=== PATIENT | female | born 1945 | race Caucasian/White ===

== ENCOUNTER 2020-10-03 09:53 | Outpatient (REF) | payer MEDICARE, SELFPAY ==
[2020-10-03 12:09] LABS: Estimated Average Glucose 143 mg/dL; Hemoglobin A1C 150.0011 umol/L; Hemoglobin A1c % 6.6 %
[2020-10-03 12:29] LABS: Cholesterol 119 mg/dL; Glucose Fasting 137 mg/dL (60-99); HDL Cholesterol 60 mg/dL; LDL Cholesterol Calculated 32 mg/dl; Triglycerides 136 mg/dL
== END 2020-10-03 09:54 | disposition home or self-care (01) ==
LOC: HO.LAB 09:53
PROVIDERS: PCP Internal Medicine; Visit Provider Internal Medicine
DX: E11.9 Type 2 diabetes mellitus without complications (principal)
CPT/HCPCS: 80061; 82947; 83036

== ENCOUNTER 2020-12-03 11:13 | Outpatient (REF) | payer MEDICARE, SELFPAY | END 2020-12-03 11:14 | disposition home or self-care (01) | LOC: HO.LAB 11:13 | PROVIDERS: PCP Internal Medicine; Visit Provider Internal Medicine | DX: Z20.822 Contact with and (suspected) exposure to COVID-19 (principal) | CPT/HCPCS: 36415; C9803; U0003 ==

== ENCOUNTER 2020-12-26 | Outpatient (REF) | payer MEDICARE, SELFPAY | END 2020-12-26 00:01 | disposition home or self-care (01) | LOC: HO.VC | PROVIDERS: Visit Provider Internal Medicine | DX: Z23 Encounter for immunization (principal) | CPT/HCPCS: 0011A ==

== ENCOUNTER 2021-01-04 09:22 | Outpatient (REF) | payer MEDICARE, SELFPAY ==
[2021-01-04 10:18] LABS: Estimated Average Glucose 137 mg/dL; Hemoglobin A1c % 6.4 %
[2021-01-04 10:54] LABS: Alanine Aminotransferase 17 U/L (0-31); Albumin Level 4.3 g/dL (3.5-5.0); Alkaline Phosphatase 43 U/L (39-117); Anion Gap 16 (12-20); Aspartate Amino Transferase 18 U/L (5-31); Bilirubin Total 0.6 mg/dL (0.0-1.0); Blood Urea Nitrogen 15 mg/dL (9-16); Calcium 9.3 mg/dL (8.4-10.2); Carbon Dioxide 28 mmol/L (22-29); Chloride 104 mmol/L (96-108); Cholesterol 122 mg/dL; Estimated Glomerular Filt Rate > 60; Glucose Random 132 mg/dL (60-115); HDL Cholesterol 55 mg/dL; LDL Cholesterol Calculated 42 mg/dl; Potassium 4.5 mmol/L (3.3-5.1); Sodium 143 mmol/L (135-145); Total Protein 6.6 g/dL (6.5-8.0); Triglycerides 127 mg/dL
[2021-01-05 03:13] LABS: LDL Cholesterol Direct 40 mg/dL (<100)
== END 2021-01-04 09:23 | disposition home or self-care (01) ==
LOC: HO.LAB 09:22
PROVIDERS: PCP Internal Medicine; Visit Provider Internal Medicine
DX: E11.40 Type 2 diabetes mellitus with diabetic neuropathy, unspecified (principal); I10 Essential (primary) hypertension; E78.5 Hyperlipidemia, unspecified
CPT/HCPCS: 36415; 80053; 80061; 83036; 83721

== ENCOUNTER → 2021-01-10 12:26 | Outpatient (BNVA) | payer MEDICARE, SELFPAY | PROVIDERS: PCP Internal Medicine; Visit Provider Internal Medicine | DX: E11.65 Type 2 diabetes mellitus with hyperglycemia (principal); Z79.4 Long term (current) use of insulin; E78.5 Hyperlipidemia, unspecified | CPT/HCPCS: 82947; 99212 ==

== ENCOUNTER 2021-01-18 11:14 | Outpatient (REF) | payer SELFPAY | END 2021-01-18 11:15 | disposition home or self-care (01) | LOC: HO.HAP 11:14 | PROVIDERS: Visit Provider Internal Medicine | DX: Z46.1 Encounter for fitting and adjustment of hearing aid (principal) | CPT/HCPCS: V5266; V5267 ==

== ENCOUNTER 2021-01-22 | Outpatient (REF) | payer MEDICARE, SELFPAY | END 2021-01-22 00:01 | disposition home or self-care (01) | LOC: HO.VC | PROVIDERS: Visit Provider Internal Medicine | DX: Z23 Encounter for immunization (principal) | CPT/HCPCS: 0012A ==

== ENCOUNTER 2021-04-03 09:23 | Outpatient (REF) | payer MEDICARE, SELFPAY ==
[2021-04-03 11:02] LABS: Creatinine Urine 75.28 mg/dL; Microalbum/Creatinine Ratio Ur 9.2 ug/mg cr
[2021-04-03 11:11] LABS: Alanine Aminotransferase 14 U/L (0-31); Alkaline Phosphatase 42 U/L (39-117); Anion Gap 13 (12-20); Aspartate Amino Transferase 13 U/L (5-31); Bilirubin Total 0.5 mg/dL (0.0-1.0); Blood Urea Nitrogen 15 mg/dL (9-16); Calcium 9.4 mg/dL (8.4-10.2); Carbon Dioxide 30 mmol/L (22-29); Chloride 104 mmol/L (96-108); Estimated Glomerular Filt Rate > 60; Glucose Random 134 mg/dL (60-115); Sodium 142 mmol/L (135-145); Total Protein 6.2 g/dL (6.5-8.0)
[2021-04-03 11:16] LABS: Estimated Average Glucose 134 mg/dL; Hemoglobin A1c % 6.3 %
== END 2021-04-03 09:24 | disposition home or self-care (01) ==
LOC: HO.LAB 09:23
PROVIDERS: PCP Internal Medicine; Visit Provider Internal Medicine
DX: E11.9 Type 2 diabetes mellitus without complications (principal)
CPT/HCPCS: 36415; 80053; 82043; 83036

== ENCOUNTER → 2021-04-10 11:54 | Outpatient (BNVA) | payer MEDICARE, SELFPAY | PROVIDERS: PCP Internal Medicine; Visit Provider Internal Medicine | DX: E11.65 Type 2 diabetes mellitus with hyperglycemia (principal); I10 Essential (primary) hypertension; E78.5 Hyperlipidemia, unspecified; Z79.4 Long term (current) use of insulin | CPT/HCPCS: Q3014 ==

== ENCOUNTER 2021-05-03 15:49 | Outpatient (REF) | payer SELFPAY | END 2021-05-03 15:50 | disposition home or self-care (01) | LOC: HO.HAP 15:49 | PROVIDERS: Visit Provider Internal Medicine | DX: Z46.1 Encounter for fitting and adjustment of hearing aid (principal); H90.3 Sensorineural hearing loss, bilateral | CPT/HCPCS: V5267 ==

== ENCOUNTER 2021-06-24 09:37 | Outpatient (REF) | payer MEDICARE, SELFPAY ==
[2021-06-24 10:15] LABS: MANUAL DIFF FLAG NO
[2021-06-24 10:25] LABS: Basophils Absolute Auto 0.1 X10*3/uL (0.0-0.2); Basophils Percent Auto 0.8 % (0-2); Eosinophils Absolute Auto 0.2 X10*3/uL (0.0-0.4); Eosinophils Percent Auto 2.6 % (0-4); Hematocrit 39.1 % (37-47); Hemoglobin 12.3 g/dl (12.0-16.0); Imm Gran Abs Auto 0.03 X10*3/uL (0.00-0.03); Imm Gran Pct Auto 0.5 % (0.0-0.4); Lymphocytes Absolute Auto 2.4 X10*3/uL (1.2-4.9); Lymphocytes Percent Auto 39.4 % (20-40); Mean Corpuscular HGB Conc 31.5 g/dl (31.0-35.0); Mean Corpuscular Hemoglobin 27.1 pg (27.0-33.0); Mean Corpuscular Volume 86.1 fL (80-98); Mean Platelet Volume 11.5 fL (9.4-12.3); Monocytes Absolute Auto 0.4 X10*3/uL (0.1-1.2); Monocytes Percent Auto 6.4 % (2-11); Neutrophils Absolute Auto 3.1 X10*3/uL (2.0-8.3); Neutrophils Percent Auto 50.3 % (45-73); Platelet Count 199 X10*3/uL (160-400); Red Blood Count 4.54 X10*6/uL (4.20-5.50); Red Cell Distribution Width 13.7 % (11.0-16.0); White Blood Count 6.1 X10*3/uL (4.8-10.8)
[2021-06-24 10:41] LABS: Estimated Average Glucose 131 mg/dL; Hemoglobin A1c % 6.2 %
[2021-06-24 11:04] LABS: Alanine Aminotransferase 10 U/L (0-31); Alkaline Phosphatase 40 U/L (39-117); Anion Gap 15 (12-20); Aspartate Amino Transferase 13 U/L (5-31); Bilirubin Total 0.4 mg/dL (0.0-1.0); Blood Urea Nitrogen 14 mg/dL (9-16); Calcium 9.1 mg/dL (8.4-10.2); Carbon Dioxide 25 mmol/L (22-29); Chloride 107 mmol/L (96-108); Cholesterol 135 mg/dL; Estimated Glomerular Filt Rate > 60; Glucose Fasting 146 mg/dL (60-99); HDL Cholesterol 60 mg/dL; LDL Cholesterol Calculated 59 mg/dl; Potassium 4.8 mmol/L (3.3-5.1); Sodium 142 mmol/L (135-145); Total Protein 6.3 g/dL (6.5-8.0); Triglycerides 82 mg/dL
[2021-06-24 12:27] LABS: Creatinine Urine 31.64 mg/dL; Microalbumin Urine < 5.0 mg/L
== END 2021-06-24 09:38 | disposition home or self-care (01) ==
LOC: HO.LAB 09:37
PROVIDERS: PCP Internal Medicine; Visit Provider Internal Medicine
DX: Z00.00 Encounter for general adult medical examination without abnormal findings (principal); E11.9 Type 2 diabetes mellitus without complications
CPT/HCPCS: 36415; 80053; 80061; 82043; 83036; 85025

== ENCOUNTER 2021-08-06 13:55 | Outpatient (REF) | payer MEDICARE, SELFPAY | END 2021-08-06 13:56 | disposition home or self-care (01) | LOC: HO.LAB 13:55 | PROVIDERS: PCP Internal Medicine; Visit Provider Internal Medicine | DX: Z20.822 Contact with and (suspected) exposure to COVID-19 (principal) | CPT/HCPCS: C9803; U0003; U0005 ==

== ENCOUNTER 2021-11-11 11:15 | Outpatient (REF) | payer MEDICARE, SELFPAY ==
[2021-11-11 12:25] LABS: COVID-19 Test Negative (Negative); IDNOW Serial# 16C4AD1C
== END 2021-11-11 11:16 | disposition home or self-care (01) ==
LOC: HO.LAB 11:15
PROVIDERS: Visit Provider Internal Medicine
DX: Z20.822 Contact with and (suspected) exposure to COVID-19 (principal)
CPT/HCPCS: 36415; 87635; C9803

== ENCOUNTER 2022-01-10 08:57 | Outpatient (REF) | payer MEDICARE, SELFPAY ==
[2022-01-10 09:37] LABS: Estimated Average Glucose 140 mg/dL; Hemoglobin A1c % 6.5 %
[2022-01-10 10:04] LABS: Cholesterol 138 mg/dL; Glucose Fasting 171 mg/dL (60-99); HDL Cholesterol 65 mg/dL; LDL Cholesterol Calculated 45 mg/dl; Triglycerides 142 mg/dL
== END 2022-01-10 08:58 | disposition home or self-care (01) ==
LOC: HO.LAB 08:57
PROVIDERS: PCP Internal Medicine; Visit Provider Internal Medicine
DX: Z00.00 Encounter for general adult medical examination without abnormal findings (principal); E11.65 Type 2 diabetes mellitus with hyperglycemia
CPT/HCPCS: 36415; 80061; 82947; 83036; 84443

== ENCOUNTER 2022-01-31 14:10 | Outpatient (REF) | payer MEDICARE, SELFPAY ==
--- NOTE | ~2022-01-31 | XR_ITS ---
EXAMINATION: XR LUMBOSACRAL SPINE CLINICAL INFORMATION: Dorsalgia COMPARISON: None TECHNIQUE: Three views of the lumbosacral spine. FINDINGS: There is normal lumbar lordosis. There is grade 1 anterolisthesis L3 over L4. Rest the vertebral alignment is normal. There is loss of L4-L5 and L5-S1 disc heights. No acute fracture, dislocation seen. There is atherosclerotic calcification of the abdominal aorta without dilation. XR/XR lumbar spine 2-3V IMPRESSION: Grade 1 anterolisthesis L3-L4. Degenerative disc changes L4-L5 and L5-S1 disc levels.
== END 2022-01-31 14:11 | disposition home or self-care (01) ==
LOC: HO.XRAY 14:10
PROVIDERS: PCP Internal Medicine; Visit Provider Internal Medicine
DX: M54.9 Dorsalgia, unspecified (principal)
CPT/HCPCS: 72100

== ENCOUNTER 2022-04-23 09:03 | Outpatient (REF) | payer MEDICARE, SELFPAY ==
[2022-04-23 09:58] LABS: MANUAL DIFF FLAG NO
[2022-04-23 10:08] LABS: Basophils Percent Auto 0.6 % (0-2); Eosinophils Absolute Auto 0.1 X10*3/uL (0.0-0.4); Eosinophils Percent Auto 2.1 % (0-4); Hematocrit 42.2 % (37.0-47.0); Hemoglobin 13.5 g/dl (12.0-16.0); Imm Gran Abs Auto 0.01 X10*3/uL (0.00-0.03); Imm Gran Pct Auto 0.2 % (0.0-0.4); Lymphocytes Absolute Auto 2.5 X10*3/uL (1.2-4.9); Lymphocytes Percent Auto 36.8 % (20-40); Mean Corpuscular Hemoglobin 27.2 pg (27.0-33.0); Mean Corpuscular Volume 84.9 fL (80.0-98.0); Mean Platelet Volume 10.9 fL (9.4-12.3); Monocytes Absolute Auto 0.4 X10*3/uL (0.1-1.2); Monocytes Percent Auto 6.6 % (2-11); Neutrophils Absolute Auto 3.6 x10*3/uL (2.0-8.3); Neutrophils Percent Auto 53.7 % (45-73); Platelet Count 224 X10*3/uL (160-400); Red Blood Count 4.97 X10*6/uL (4.20-5.50); Red Cell Distribution Width 13.9 % (11.0-16.0); White Blood Count 6.7 X10*3/uL (4.8-10.8)
[2022-04-23 10:25] LABS: Estimated Average Glucose 131 mg/dL; Hemoglobin A1c % 6.2 %
[2022-04-23 10:45] LABS: Alanine Aminotransferase 14 U/L (0-31); Albumin Level 4.2 g/dL (3.5-5.0); Alkaline Phosphatase 43 U/L (39-117); Anion Gap 13 (12-20); Aspartate Amino Transferase 16 U/L (5-31); Bilirubin Total 0.5 mg/dL (0.0-1.0); Blood Urea Nitrogen 16 mg/dL (9-16); Calcium 9.9 mg/dL (8.4-10.2); Carbon Dioxide 27 mmol/L (22-29); Chloride 106 mmol/L (96-108); Cholesterol 138 mg/dL; Estimated Glomerular Filt Rate > 60; Glucose Fasting 151 mg/dL (60-99); HDL Cholesterol 61 mg/dL; LDL Cholesterol Calculated 48 mg/dl; Potassium 4.7 mmol/L (3.3-5.1); Sodium 141 mmol/L (135-145); Total Protein 6.8 g/dL (6.5-8.0); Triglycerides 149 mg/dL
[2022-04-23 11:10] LABS: Thyroid Stimulating Hormone 0.56 uIU/mL (0.32-4.0)
[2022-04-23 12:05] LABS: Creatinine Urine 76.82 mg/dL; Microalbum/Creatinine Ratio Ur 48.1 ug/mg cr
== END 2022-04-23 09:04 | disposition home or self-care (01) ==
LOC: HO.LAB 09:03
PROVIDERS: PCP Internal Medicine; Visit Provider Internal Medicine
DX: Z00.00 Encounter for general adult medical examination without abnormal findings (principal); E11.9 Type 2 diabetes mellitus without complications; Z13.0 Encounter for screening for diseases of the blood and blood-forming organs and certain disorders involving the immune mechanism
CPT/HCPCS: 36415; 80053; 80061; 82043; 83036; 84443; 85025

== ENCOUNTER 2022-05-12 11:15 | Outpatient (REF) | payer MEDICARE, SELFPAY ==
--- NOTE | ~2022-05-12 | XR_ITS ---
EXAMINATION: XR CERVICAL SPINE CLINICAL INFORMATION: Cervicalgia COMPARISON: None TECHNIQUE: 4 views of the cervical spine were obtained. FINDINGS: No acute fracture or malalignment. Vertebral body heights are maintained. Endplate osteophytes present C4-C7. Bulky endplate osteophytes present throughout the cervical spine, possibly with associated ankylosis at C2-3. There is spinal soft tissues unremarkable. XR/XR cervical spine 2V IMPRESSION: No acute findings. Cervical spondylosis as described.
== END 2022-05-12 11:16 | disposition home or self-care (01) ==
LOC: HO.XRAY 11:15
PROVIDERS: PCP Internal Medicine; Visit Provider Internal Medicine
DX: M54.2 Cervicalgia (principal)
CPT/HCPCS: 72040

== ENCOUNTER 2022-06-20 11:09 | Outpatient (REF) | payer MEDICARE, SELFPAY ==
[2022-06-20 11:36] LABS: Estimated Average Glucose 128 mg/dL; Hemoglobin A1c % 6.1 %
[2022-06-20 11:57] LABS: Glucose Fasting 103 mg/dL (60-99); Uric Acid 4.3 mg/dL (2.4-5.7)
== END 2022-06-20 11:10 | disposition home or self-care (01) ==
LOC: HO.LAB 11:09
PROVIDERS: PCP Internal Medicine; Visit Provider Internal Medicine
DX: M10.9 Gout, unspecified (principal); E11.65 Type 2 diabetes mellitus with hyperglycemia
CPT/HCPCS: 36415; 82947; 83036; 84550

== ENCOUNTER 2022-08-05 13:59 | Outpatient (REF) | payer MEDICARE, SELFPAY ==
--- NOTE | ~2022-08-05 | XR_ITS ---
EXAMINATION: XR RIGHT HIP SERIES XR LEFT KNEE SERIES CLINICAL INFORMATION: Pain in the hip. Pain in the knee. COMPARISON: None. TECHNIQUE: Right hip 2 views. Left knee 4 views. FINDINGS: Right Hip: There is chondrocalcinosis. Joint space normal. Prominent ossification extending distally and lateral to the proximal right iliac spine. This likely reflects heterotopic ossification related to old trauma. Surrounding bone and soft tissues are otherwise normal. Left Knee: Chondrocalcinosis. Minimal marginal osteophytes about the medial and lateral compartments indicative of mild osteoarthritis. Patellofemoral compartment: At least mild osteoarthritis manifested by marginal osteophytes on the lateral view. XR/XR knee LT 2V IMPRESSION: RIGHT HIP: Chondrocalcinosis. No arthrosis. Ossification attached to the right iliac spine likely related to old trauma with heterotopic ossification. Prominent enthesophytes less likely LEFT KNEE: Chondrocalcinosis. Mild osteoarthritis.
--- NOTE | ~2022-08-05 | XR_ITS ---
EXAMINATION: XR RIGHT HIP SERIES XR LEFT KNEE SERIES CLINICAL INFORMATION: Pain in the hip. Pain in the knee. COMPARISON: None. TECHNIQUE: Right hip 2 views. Left knee 4 views. FINDINGS: Right Hip: There is chondrocalcinosis. Joint space normal. Prominent ossification extending distally and lateral to the proximal right iliac spine. This likely reflects heterotopic ossification related to old trauma. Surrounding bone and soft tissues are otherwise normal. Left Knee: Chondrocalcinosis. Minimal marginal osteophytes about the medial and lateral compartments indicative of mild osteoarthritis. Patellofemoral compartment: At least mild osteoarthritis manifested by marginal osteophytes on the lateral view. XR/XR hip RT min 2V IMPRESSION: RIGHT HIP: Chondrocalcinosis. No arthrosis. Ossification attached to the right iliac spine likely related to old trauma with heterotopic ossification. Prominent enthesophytes less likely LEFT KNEE: Chondrocalcinosis. Mild osteoarthritis.
== END 2022-08-05 14:00 | disposition home or self-care (01) ==
LOC: HO.XRAY 13:59
PROVIDERS: PCP Internal Medicine; Visit Provider Internal Medicine
DX: M25.551 Pain in right hip (principal); M25.562 Pain in left knee
CPT/HCPCS: 73502; 73560

== ENCOUNTER 2022-08-08 11:35 | Outpatient (REF) | payer MEDICARE, SELFPAY ==
--- NOTE | ~2022-08-08 | XR_ITS ---
EXAMINATION: XR KNEE, RIGHT CLINICAL INFORMATION: Knee pain, right COMPARISON: Standing AP knees 04/28/2018 TECHNIQUE: Right knee is imaged in 3 views. FINDINGS: There is no acute or healing fracture, dislocation, or destructive process. No focal joint narrowing or erosive change. Again, there is chondrocalcinosis medial lateral menisci and possibly at origin medial collateral ligament. There is small suprapatellar effusion. Spurring at the quadriceps insertion patella and at origin patellar tendon are present. The deep infrapatellar recess is preserved. Old surgical clips seen anterior lateral soft tissues just below knee joint. There are scattered curvilinear calcifications likely related to varicose veins and similar to prior imaging. XR/XR knee RT 2V IMPRESSION: -Chondrocalcinosis medial lateral menisci. Small suprapatellar effusion. -Spurring quadriceps insertion patella and origin patellar tendon. -Varicose veins with chronic calcifications.
== END 2022-08-08 11:36 | disposition home or self-care (01) ==
LOC: HO.XRAY 11:35
PROVIDERS: PCP Internal Medicine; Visit Provider Internal Medicine
DX: M25.561 Pain in right knee (principal)
CPT/HCPCS: 73560

== ENCOUNTER → 2022-09-04 10:59 | Outpatient (BNVA) | payer MEDICARE, SELFPAY | PROVIDERS: PCP Internal Medicine; Visit Provider Orthopaedic Surgery | DX: M17.0 Bilateral primary osteoarthritis of knee (principal); E11.69 Type 2 diabetes mellitus with other specified complication; E66.01 Morbid (severe) obesity due to excess calories | CPT/HCPCS: 20610; 99202; J1100 ==

== ENCOUNTER 2022-09-12 12:29 | Outpatient (REF) | payer SELFPAY ==
--- NOTE | 2022-09-15 07:21 | MHC.AU.FUR ---
Hearing Instrument Follow-Up Date of Visit: 09/12/22 Right Ear: [employer] OPN S 3 mini [employer] Serial # [id number] Repair Warranty: 07/05/2023 Loss and Damage Warranty: 07/05/2023 Battery Size: Rechargeable Senior Core Java Developer: #[id number] Type of Dome: 8 mm Open Type of Wax Guard: mini Pro Dispensed By: [facility] Date of Fittin06/18/2020 Follow-Up Summary: Hearing Aid Problem - Patient reports the aid is not charging. She brought in hearing aid and the electric meter inspector. Visual inspection after plugging in the electric meter inspector and placing aid in, the indicator on the aid is doing 3 quick red blinks which means the aid needs to be sent for repair. Patient took back the electric meter inspector and sending aid to [employer] under warranty. Recommendations (Other): When aid received, make sure it is charged and set to last settings in RAS. Then patient can pick-up repair without seeing an AuD Diagnosis Code(s): Primary Diagnosis: H90.3 Signature:Provider: Amrbeen Jose, [facility]
== END 2022-09-12 12:30 | disposition home or self-care (01) ==
LOC: HO.HAP 12:29
PROVIDERS: Visit Provider Internal Medicine
DX: Z13.89 Encounter for screening for other disorder (principal)

== ENCOUNTER 2022-10-08 08:55 | Outpatient (REF) | payer MEDICARE, SELFPAY ==
[2022-10-08 09:43] LABS: Estimated Average Glucose 131 mg/dL; Hemoglobin A1c % 6.2 %
[2022-10-08 09:48] LABS: Glucose Fasting 137 mg/dL (60-99)
== END 2022-10-08 08:56 | disposition home or self-care (01) ==
LOC: HO.LAB 08:55
PROVIDERS: PCP Internal Medicine; Visit Provider Internal Medicine
DX: E11.65 Type 2 diabetes mellitus with hyperglycemia (principal)
CPT/HCPCS: 36415; 82947; 83036

== ENCOUNTER 2022-11-05 13:41 | Outpatient (REF) | payer MEDICARE, SELFPAY ==
--- NOTE | 2022-11-05 10:00 | EMG_ITS ---
Please see scanned EMG / Nerve Conduction Report. MTDD
== END 2022-11-05 13:42 | disposition home or self-care (01) ==
LOC: HO.NEURO 13:41
PROVIDERS: PCP Internal Medicine; Visit Provider Internal Medicine
DX: R20.2 Paresthesia of skin (principal)
CPT/HCPCS: 95885; 95913

== ENCOUNTER 2022-12-03 08:18 | Outpatient (REF) | payer MEDICARE, SELFPAY | END 2022-12-03 08:19 | disposition home or self-care (01) | LOC: HO.SH 08:18 | PROVIDERS: Visit Provider Internal Medicine | DX: Z01.118 Encounter for examination of ears and hearing with other abnormal findings (principal); H90.3 Sensorineural hearing loss, bilateral | CPT/HCPCS: 92557; 92567 ==

== ENCOUNTER 2023-01-03 09:31 | Outpatient (REF) | payer MEDICARE, SELFPAY ==
[2023-01-03 10:39] LABS: Estimated Average Glucose 131 mg/dL; Hemoglobin A1c % 6.2 %
[2023-01-03 11:25] LABS: Glucose Fasting 139 mg/dL (60-99)
[2023-01-03 11:39] LABS: Thyroid Stimulating Hormone 0.29 uIU/mL (0.32-4.0)
== END 2023-01-03 09:32 | disposition home or self-care (01) ==
LOC: HO.LAB 09:31
PROVIDERS: PCP Internal Medicine; Visit Provider Internal Medicine
DX: E03.9 Hypothyroidism, unspecified (principal); E11.65 Type 2 diabetes mellitus with hyperglycemia
CPT/HCPCS: 36415; 82947; 83036; 84443

== ENCOUNTER 2023-04-14 12:00 | Outpatient (REF) | payer MEDICARE, SELFPAY ==
--- NOTE | ~2023-04-14 | XR_ITS ---
EXAMINATION: XR SHOULDER, RIGHT CLINICAL INFORMATION: Pain. COMPARISON: None available. TECHNIQUE: 3 views of the right shoulder. FINDINGS: There is no evidence of acute fracture or dislocation of the right shoulder. There is capsular calcification evident. The glenohumeral joint appears maintained. There is degenerative change of the right acromioclavicular joint with loss of joint space and marginal spurring. XR/XR shoulder RT min 2V IMPRESSION: Calcific tendinitis. Right AC joint degenerative change.
== END 2023-04-14 12:01 | disposition home or self-care (01) ==
LOC: HO.XRAY 12:00
PROVIDERS: PCP Internal Medicine; Visit Provider Internal Medicine
DX: M25.511 Pain in right shoulder (principal)
CPT/HCPCS: 73030

== ENCOUNTER 2023-07-03 13:21 | Outpatient (AMB) | payer MEDICARE, SELFPAY ==
--- NOTE | 2023-07-03 13:24 | MHC.PC.OV ---
Intake Visit Reasons: Body aches, coughing, congested Intake Note: Patient here today for body aches, coughing and congestion. State OTC is not helping Title I Instructional Assistant Required: No Choir Director: Present Accompanied by: Spouse Allergies acetaminophen [Percocet] Allergy (Unknown, Verified 07/03/23 13:28) Stomach upset amoxicillin [Augmentin] Allergy (Unknown, Verified 07/03/23 13:28) hives clavulanic acid [Augmentin] Allergy (Unknown, Verified 07/03/23 13:28) hives furosemide Allergy (Unknown, Verified 07/03/23 13:28) unknown latex [LATEX] Allergy (Unknown, Verified 07/03/23 13:28) UNKNOWN lisinopril Allergy (Unknown, Verified 07/03/23 13:28) Unknown oxycodone [Percocet] Allergy (Unknown, Verified 07/03/23 13:28) Stomach upset tramadol Allergy (Unknown, Verified 07/03/23 13:28) Stomach uspet Medication List - Last Reconciled 07/03/23 by Allen Cortés MD amlodipine 10 mg PO DAILY blood sugar diagnostic FREESTYLE LITE TEST STRIPS TO CHECK THREE TIMES A DAY blood-glucose meter (FreeStyle Lite Meter kit) As directed diclofenac sodium 1% 2 grams topical QID ezetimibe 10 mg PO DAILY gabapentin 300 mg (3 x 100 mg) PO BEDTIME insulin lispro (Humalog U-100 Insulin) 10 units (0.1 mL) subcut TID insulin lispro (Humalog KwikPen (U-100) Insulin) 10 units (0.1 mL) subcut TID levothyroxine 112 mcg PO DAILY liraglutide 1.2 mg (0.2 mL) subcut DAILY 30 days losartan 25 mg PO DAILY 30 days metformin 1,000 mg PO BID naproxen (Naprosyn) 500 mg PO BID PRN rosuvastatin 20 mg PO DAILY tizanidine 4 mg PO Q8H PRN Tobacco use date assessed: 07/03/23 Fall risk assessment: No Falls in past year Last assessed Fall Risk: 07/03/23 Dental Screening Dental Screen Date: 07/03/23 Did you have a dental visit in the last 12 months?: Yes Did you have a dental problem in the last 6 months where you did not have access to dental care?: No Was dental information given to patient?: Patient has dentist HPI Body aches, coughing, congested HPI Details cough and chills; positive for covid [facility] Medical History Annual physical exam Diabetes mellitus HLD (hyperlipidemia) Hypertension Hypothyroidism Obesity T2DM (type 2 diabetes mellitus) Type 2 diabetes mellitus with morbid obesity Vitamin D deficiency Surgical History History of appendectomy History of cholecystectomy History of colonoscopy History of surgery S/P JOSIE (total abdominal hysterectomy) Family History Father Diabetes Mother CHF (congestive heart failure) CVD (cardiovascular disease) Brother HIV (human immunodeficiency virus infection) Social History Housing: House Alcohol intake: never Patient Tobacco Use Status: Former Tobacco user Tobacco use type: Cigarette e-Cigarette/Vaping Use: Never Used Second Hand Smoke Exposure: No service: No Current occupational status: retired Cognitive needs: No Hearing needs: No Vision needs: No Questionnaire Thrive Questionnaire Date Thrive assessed: 01/09/23 ARSLAN-7 AMB Questionnaire ARSLAN-7 Date ARSLAN - 7 assessed: 01/13/22 Source: Developed by Drs. Mendez Sanz, Shannan Quintanilla, Fuentes Sales and colleagues, with an educational aurelia from [employer]. Review of Systems Const Denies chills, Denies headache(s) and Denies weight loss ENT Denies headache(s) Card Denies chest pain, Denies syncope and Denies irregular heart rhythm GI Denies abdominal pain, Denies change in stool character, Denies nausea and Denies vomiting Musc Denies deformity and Denies joint swelling Neuro Denies syncope and Denies headache(s) Physical exam (Primary Care) Tobacco/Smoking Status: Tobacco use Status Tobacco use date assessed 07/03/23 07/03/23 13:29 Patient Tobacco Use Status Former Tobacco user 07/03/23 13:25 Tobacco use type Cigarette 07/03/23 13:25 e-Cigarette/Vaping Use Never Used 07/03/23 13:25 Thrive Assessment: Date of Thrive Assessment Date Thrive assessed 01/09/23 07/03/23 13:25 Telehealth Telehealth Location of provider rendering services: practice address Location of patient: address on file Patient Identification confirmed using: Name, : Yes Telehealth method: voice only Patient verbally consented to treatment: Yes Patient verbally consented to billing insurance company: Yes Patient informed of any privacy concerns related to visit: Yes Minutes spent on Phone/Video with Pt.: 15 (telephone) Assessment and Plan Assessment & Plan (1) COVID-19: Code(s): U07.1 - COVID-19 Plan: pax Orders: Orders BinaxNOW Covid-19 Ag Today R68.83 - Chills (without fever) XR chest 2V Today R05.9 - Cough, unspecified COVID-19 ID NOW (Han) Today R68.83 - Chills (without fever) Medications: New nirmatrelvir-ritonavir 300 mg (150 mg x 2)-100 mg (Paxlovid) take TWO 150 mg tablets of nirmatrelvir with ONE 100 mg tablet of ritonavir twice daily for 5 days orally PRN; 30 tabs 0RF covid Coding Level of Care Code Tele Est Pt Level 3 (16453) Diagnoses COVID-19 U07.1
== END 2023-07-03 14:24 | disposition home or self-care (01) ==
LOC: HO.HMGH 13:21
PROVIDERS: PCP Internal Medicine; Visit Provider Internal Medicine
DX: U07.1 COVID-19 (principal)
CPT/HCPCS: 99441

== ENCOUNTER 2023-07-03 13:47 | Outpatient (REF) | payer MEDICARE, SELFPAY ==
--- NOTE | ~2023-07-03 | XR_ITS ---
EXAMINATION: XR CHEST CLINICAL INFORMATION: Cough. COMPARISON: Chest x-ray 12/08/2017 TECHNIQUE: 2 views of the chest were obtained. FINDINGS: Lungs are clear. No pulmonary vascular congestion. There is no pleural effusion. The heart size is normal. The cardiac and mediastinal contours are normal. There are calcifications of the thoracic aorta. There are multilevel degenerative changes of dorsal spine. XR/XR chest 2V IMPRESSION: Unremarkable examination.
[2023-07-03 14:58] LABS: COVID-19 Test Positive (Negative); IDNOW Serial# 08D9AD1C
== END 2023-07-03 13:48 | disposition home or self-care (01) ==
LOC: HO.LAB 13:47
PROVIDERS: PCP Internal Medicine; Visit Provider Internal Medicine
DX: R68.83 Chills (without fever) (principal); R05.9 Cough, unspecified; Z20.822 Contact with and (suspected) exposure to COVID-19
CPT/HCPCS: 71046; 87635

== ENCOUNTER 2023-08-27 08:44 | Outpatient (REF) | payer MEDICARE, SELFPAY | END 2023-08-27 08:45 | disposition home or self-care (01) | LOC: HO.LAB 08:44 | PROVIDERS: PCP Internal Medicine; Visit Provider Internal Medicine | DX: E78.5 Hyperlipidemia, unspecified (principal); R73.9 Hyperglycemia, unspecified; E03.9 Hypothyroidism, unspecified | CPT/HCPCS: 36415; 80061; 82947; 83036; 84443 ==

== ENCOUNTER 2023-08-28 14:25 | Outpatient (AMB) | payer MEDICARE, SELFPAY ==
[2023-08-28 14:26] VITALS: BP 110/54; PULSE 70; O2SAT 98; BMI 36.3
--- NOTE | 2023-08-28 14:26 | MHC.PC.OV ---
Vital Signs 08/28/23 14:26 Height 5 ft 1 in Weight 192 lb BMI 36.3 BP 110/54 L Blood Pressure Location Lt brachial Position Sitting Pulse 70 Pulse Source Pulse Oximeter Pulse Oximetry (%) 98 Oxygen Delivery Method Room Air Intake Visit Reasons: A1C/ anxiety/ mental check Agile Java Developer: Not Required per policy Accompanied by: Self / Same As Patient Allergies acetaminophen [Percocet] Allergy (Unknown, Verified 08/28/23 14:27) Stomach upset amoxicillin [Augmentin] Allergy (Unknown, Verified 08/28/23 14:27) hives clavulanic acid [Augmentin] Allergy (Unknown, Verified 08/28/23 14:27) hives furosemide Allergy (Unknown, Verified 08/28/23 14:27) unknown latex [LATEX] Allergy (Unknown, Verified 08/28/23 14:27) UNKNOWN lisinopril Allergy (Unknown, Verified 08/28/23 14:27) Unknown oxycodone [Percocet] Allergy (Unknown, Verified 08/28/23 14:27) Stomach upset tramadol Allergy (Unknown, Verified 08/28/23 14:27) Stomach uspet Medication List - Last Reconciled 08/28/23 by Allen Cortés MD amlodipine 10 mg PO DAILY blood sugar diagnostic FREESTYLE LITE TEST STRIPS TO CHECK THREE TIMES A DAY blood-glucose meter (FreeStyle Lite Meter kit) As directed diclofenac sodium 1% 2 grams topical QID ezetimibe 10 mg PO DAILY gabapentin 300 mg (3 x 100 mg) PO BEDTIME insulin lispro (Humalog U-100 Insulin) 10 units (0.1 mL) subcut TID insulin lispro (Humalog KwikPen (U-100) Insulin) 10 units (0.1 mL) subcut TID levothyroxine 112 mcg PO DAILY liraglutide 1.2 mg (0.2 mL) subcut DAILY 30 days losartan 25 mg PO DAILY 30 days metformin 1,000 mg PO BID naproxen (Naprosyn) 500 mg PO BID PRN nirmatrelvir-ritonavir 300 mg (150 mg x 2)-100 mg (Paxlovid) take TWO 150 mg tablets of nirmatrelvir with ONE 100 mg tablet of ritonavir twice daily for 5 days orally PRN; rosuvastatin 20 mg PO DAILY tizanidine 4 mg PO Q8H PRN Tobacco use date assessed: 07/03/23 Fall risk assessment: No Falls in past year Last assessed Fall Risk: 08/28/23 Dental Screening Dental Screen Date: 08/28/23 Did you have a dental visit in the last 12 months?: No Did you have a dental problem in the last 6 months where you did not have access to dental care?: No Was dental information given to patient?: Patient has dentist HPI A1C/ anxiety/ mental check HPI Details DM HTN and CTS; should see a surgeon for CTS but reluctant PFSH Medical History Hypothyroidism Obesity Type 2 diabetes mellitus with morbid obesity Annual physical exam Vitamin D deficiency HLD (hyperlipidemia) T2DM (type 2 diabetes mellitus) Diabetes mellitus Hypertension Surgical History History of surgery History of colonoscopy History of appendectomy History of cholecystectomy S/P JOSIE (total abdominal hysterectomy) Family History Father Diabetes Mother CHF (congestive heart failure) CVD (cardiovascular disease) Brother HIV (human immunodeficiency virus infection) Social History Housing: House Alcohol intake: never Patient Tobacco Use Status: Former Tobacco user Tobacco use type: Cigarette e-Cigarette/Vaping Use: Never Used Second Hand Smoke Exposure: No service: No Current occupational status: retired Cognitive needs: No Hearing needs: No Vision needs: No Questionnaire PHQ-9 Over the last 2 weeks, how often have you been bothered by any of the following problems? Depression Screening Interpretation: Negative Depression Screening Done: Yes Source: Developed by Drs. Mendez Sanz, Shannan Quintanilla, Fuentes Sales and colleagues, with an educational aurelia from [employer]. Thrive Questionnaire Date Thrive assessed: 01/09/23 AUDIT C Alcohol Use Questionnaire (AUDIT-C) 1. How often do you have a drink containing alcohol?: Never Total Score: 0 Score Reviewed/Action Taken: Yes ARSLAN-7 AMB Questionnaire ARSLAN-7 Date ARSLAN - 7 assessed: 08/28/23 Feeling nervous, anxious, or on edge: 0 = Not at all Not being able to stop or control worryin = Not at all Worrying too much about different things: 0 = Not at all Trouble relaxin = Not at all Being so restless that it is hard to sit still: 0 = Not at all Becoming easily annoyed or irritable: 0 = Not at all Feeling afraid as if something awful might happen: 0 = Not at all Total ARSLAN-7 score (0-4 normal; 5-9 mild; 10-14 moderate; 15-21 severe): 0 Source: Developed by Drs. Mendez Sanz, Shannan Quintanilla, Fuentes Sales and colleagues, with an educational aurelia from [employer]. Review of Systems Const Denies chills, Denies headache(s) and Denies weight loss ENT Denies headache(s) Card Denies chest pain, Denies syncope, Denies irregular heart rhythm and Denies dyspnea Resp Denies chest congestion, Denies cough and Denies dyspnea GI Denies abdominal pain, Denies change in stool character, Denies nausea and Denies vomiting Musc Denies deformity and Denies joint swelling Neuro Denies syncope and Denies headache(s) Physical exam (Primary Care) Vital Signs: Last Vital Signs Pulse 70 08/28/23 14:26 BP 110/54 L 08/28/23 14:26 Pulse Ox 98 08/28/23 14:26 Oxygen Delivery Method Room Air 08/28/23 14:26 BMI result Body Mass Index 36.3 Tobacco/Smoking Status: Tobacco use Status Tobacco use date assessed 07/03/23 08/28/23 14:31 Patient Tobacco Use Status Former Tobacco user 08/28/23 14:31 Tobacco use type Cigarette 08/28/23 14:31 e-Cigarette/Vaping Use Never Used 08/28/23 14:31 Depression Screening Interpretation: Negative Thrive Assessment: Date of Thrive Assessment Date Thrive assessed 01/09/23 08/28/23 14:31 Const General: cooperative, comfortable and no acute distress Resp Effort & Inspection: normal respiratory effort Auscultation: clear to auscultation bilaterally Percussion: percussion normal Cardio Jugular venous distension: no JVD Rate: regular rate Rhythm: regular rhythm GI Inspection: Yes normal to inspection Extrem Other: normal Assessment and Plan Assessment & Plan (1) Type 2 diabetes mellitus with morbid obesity: Code(s): E11.69 - Type 2 diabetes mellitus with other specified complication; E66.01 - Morbid (severe) obesity due to excess calories Plan: stable; same rx (2) Hypertension: Code(s): I10 - Essential (primary) hypertension Qualifiers: Hypertension type: unspecified Qualified Code(s): I10 - Essential (primary) hypertension Plan: stable; same rx (3) Carpal tunnel syndrome: Code(s): G56.00 - Carpal tunnel syndrome, unspecified upper limb Plan: should see hand surgeon Orders: Orders Complete Blood Count Auto Diff Today D64.9 - Anemia, unspecified Hemoglobin A1c Today R73.9 - Hyperglycemia, unspecified Lipid Panel Today E78.5 - Hyperlipidemia, unspecified Comprehensive [place]. Panel Fast Today N28.9 - Disorder of kidney and ureter, unspecified Medications: New lorazepam 1 mg PO TID PRN 60 tabs 3RF anxiety Coding Level of Care Code Est Pt Level 4 (23106) Diagnoses Type 2 diabetes mellitus with morbid obesity E11.69; E66.01 Hypertension, unspecified type I10 Hypertension type: unspecified Carpal tunnel syndrome G56.00
== END 2023-08-28 15:06 | disposition home or self-care (01) ==
PROVIDERS: PCP Internal Medicine; Visit Provider Internal Medicine
DX: E11.69 Type 2 diabetes mellitus with other specified complication (principal); E66.01 Morbid (severe) obesity due to excess calories; I10 Essential (primary) hypertension; Z68.36 Body mass index [BMI] 36.0-36.9, adult; G56.00 Carpal tunnel syndrome, unspecified upper limb
CPT/HCPCS: 99214

== ENCOUNTER 2023-10-10 11:06 | Emergency (ER) | payer MEDICARE, SELFPAY ==
[2023-10-10] VITALS (7 sets, daily range): BP systolic 122–145; BP diastolic 47–84; PULSE 70–76; RESP 16–18; TEMP 36.4–36.9; O2SAT 94–100; BMI 33.4
--- NOTE | ~2023-10-10 | XR_ITS ---
EXAMINATION: PELVIS AND RIGHT HIP, LEFT TIB-FIB, LEFT ANKLE CLINICAL INFORMATION: Pain without trauma COMPARISON: Left knee 08/05/2022, right hip 08/05/2022 TECHNIQUE: Single view pelvis with 2 additional views right hip, 2 views left tib-fib, 4 views left ankle FINDINGS: Mild degenerative changes are present in the hip. No fractures or bony destructive lesions are seen. Again seen is ossification lateral to the right iliac spine, unchanged from prior. Degenerative changes are present in the knee in both the medial and lateral compartment with some narrowing and sclerosis with osteophytes. The patellofemoral compartment is not well assessed on these tibia and fibula radiographs. Some mild degenerative changes seen at the ankle with some medial and lateral femoral condyle osteophytes. Subcutaneous calcification is seen medially possibly secondary to venous stasis. The ankle mortise appears stable. Moderate degenerative changes are noted in the tarsal bones. There is mild calcaneal spurring and some plantar fascia calcification. XR/XR ankle LT 2V IMPRESSION: 1. No evidence of an acute osseous injury. 2. Degenerative changes as described above.
--- NOTE | ~2023-10-10 | XR_ITS ---
EXAMINATION: PELVIS AND RIGHT HIP, LEFT TIB-FIB, LEFT ANKLE CLINICAL INFORMATION: Pain without trauma COMPARISON: Left knee 08/05/2022, right hip 08/05/2022 TECHNIQUE: Single view pelvis with 2 additional views right hip, 2 views left tib-fib, 4 views left ankle FINDINGS: Mild degenerative changes are present in the hip. No fractures or bony destructive lesions are seen. Again seen is ossification lateral to the right iliac spine, unchanged from prior. Degenerative changes are present in the knee in both the medial and lateral compartment with some narrowing and sclerosis with osteophytes. The patellofemoral compartment is not well assessed on these tibia and fibula radiographs. Some mild degenerative changes seen at the ankle with some medial and lateral femoral condyle osteophytes. Subcutaneous calcification is seen medially possibly secondary to venous stasis. The ankle mortise appears stable. Moderate degenerative changes are noted in the tarsal bones. There is mild calcaneal spurring and some plantar fascia calcification. XR/XR hip RT w PEL1V IMPRESSION: 1. No evidence of an acute osseous injury. 2. Degenerative changes as described above.
--- NOTE | ~2023-10-10 | XR_ITS ---
EXAMINATION: PELVIS AND RIGHT HIP, LEFT TIB-FIB, LEFT ANKLE CLINICAL INFORMATION: Pain without trauma COMPARISON: Left knee 08/05/2022, right hip 08/05/2022 TECHNIQUE: Single view pelvis with 2 additional views right hip, 2 views left tib-fib, 4 views left ankle FINDINGS: Mild degenerative changes are present in the hip. No fractures or bony destructive lesions are seen. Again seen is ossification lateral to the right iliac spine, unchanged from prior. Degenerative changes are present in the knee in both the medial and lateral compartment with some narrowing and sclerosis with osteophytes. The patellofemoral compartment is not well assessed on these tibia and fibula radiographs. Some mild degenerative changes seen at the ankle with some medial and lateral femoral condyle osteophytes. Subcutaneous calcification is seen medially possibly secondary to venous stasis. The ankle mortise appears stable. Moderate degenerative changes are noted in the tarsal bones. There is mild calcaneal spurring and some plantar fascia calcification. XR/XR tibia fibula LT 2V IMPRESSION: 1. No evidence of an acute osseous injury. 2. Degenerative changes as described above.
--- NOTE | ~2023-10-10 | US_ITS ---
EXAMINATION: US VENOUS ULTRASOUND WITH DOPPLER LOWER EXTREMITY, LEFT CLINICAL INFORMATION: Left lower extremity pain and swelling COMPARISON: Left leg DVT study 04/08/2018 TECHNIQUE: Ultrasound of the deep veins is performed from the hip to the calf with compression sonography and color and pulse Doppler assessment. Spectral analysis with color-flow imaging is performed. FINDINGS: There is normal venous compression and respiratory variation and augmented flow. The visualized common femoral vein, superficial femoral vein, profunda femoral vein, popliteal vein, and the trifurcation region shows no evidence of deep venous thrombosis. There is a 4.0 x 1.5 x 2.3 cm Arias's cyst present. If the patient's symptoms persist, followup ultrasound in 5 days 7 days might be of value to exclude proximal propagation from a non-visualized calf vein. US/US venous duplex LE IMPRESSION: No DVT demonstrated in the left lower extremity.
--- NOTE | 2023-10-10 11:08 | ED_ITS ---
HPI - Extremity Injury (Lower) General Chief Complaint: Extremity Problem Stated Complaint: LLE PAIN/SWELLING PER EMS Time Seen by Provider: 10/10/23 11:08 Source: patient and EMS Mode of arrival: EMS Limitations: no limitations History of Present Illness HPI Narrative: 77 yo female w/ pmh of diabetes, hypertension, hyperlipidemia here with complaints of left calf pain and swelling since with no known injury or trauma. Patient reports history of a unprovoked DVT years ago and she was on Coumadin for some time but is no longer on Coumadin. She denies any shortness of breath or chest pain. No redness, warmth, numbness or tingling of extremity. Patient also complaining of right hip pain since yesterday with no known injury or trauma. Taking Motrin and Tylenol home with continued pain Related Data Previous Rx's Medication Instructions Recorded blood-glucose meter (FreeStyle #1 ea 01/10/21 Lite Meter kit) tizanidine 4 mg capsule 4 mg PO Q8H PRN muscle spasticity 09/30/21 #60 caps losartan 25 mg tablet 25 mg PO DAILY 30 days #90 tabs 01/09/23 insulin lispro 100 unit/mL 10 unit (0.1 mL) subcut TID #10 mL 02/04/23 subcutaneous solution (Humalog U-100 Insulin) liraglutide 0.6 mg/0.1 mL (18 mg/3 1.2 mg (0.2 mL) subcut DAILY 30 02/04/23 mL) subcutaneous pen injector days #6 mL insulin lispro 100 unit/mL 10 unit (0.1 mL) subcut TID #15 mL 02/06/23 subcutaneous pen (Humalog KwikPen (U-100) Insulin) naproxen 500 mg tablet (Naprosyn) 500 mg PO BID PRN pain #60 tabs 03/24/23 blood sugar diagnostic #100 ea 06/04/23 diclofenac sodium 1 % topical gel 2 g topical QID #100 grams 06/30/23 nirmatrelvir 300 mg (150 mg See Rx Instructions PO .COMPLEX 07/03/23 x2)-ritonavir 100 mg tablet,dose PRN covid #30 tabs pack (Paxlovid) metformin 1,000 mg tablet 1,000 mg PO BID #180 tabs 07/31/23 ezetimibe 10 mg tablet 10 mg PO DAILY #90 tabs 08/10/23 levothyroxine 112 mcg capsule 112 mcg PO DAILY #90 caps 08/23/23 lorazepam 1 mg tablet 1 mg PO TID PRN anxiety #60 tabs 08/28/23 rosuvastatin 20 mg tablet 20 mg PO DAILY #90 tabs 09/06/23 amlodipine 10 mg tablet 10 mg PO DAILY #90 tabs 09/15/23 gabapentin 100 mg capsule 300 mg (3 x 100 mg) PO BEDTIME #90 09/15/23 caps Allergies Allergy/AdvReac Type Severity Reaction Status Date / Time acetaminophen [Percocet] Allergy Unknown Stomach Verified 08/28/23 14:27 upset amoxicillin [Augmentin] Allergy Unknown hives Verified 08/28/23 14:27 clavulanic acid [Augmentin] Allergy Unknown hives Verified 08/28/23 14:27 furosemide Allergy Unknown unknown Verified 08/28/23 14:27 latex [LATEX] Allergy Unknown UNKNOWN Verified 08/28/23 14:27 lisinopril Allergy Unknown Unknown Verified 08/28/23 14:27 oxycodone [Percocet] Allergy Unknown Stomach Verified 08/28/23 14:27 upset tramadol Allergy Unknown Stomach Verified 08/28/23 14:27 uspet Review of Systems Review of Systems: Yes all other systems are reviewed and are negative Constitutional: Constitutional: Reports no additional constitutional complaints, Denies body ache(s), Denies chills, Denies fever(s), Denies headache(s) and Denies weakness Eyes: Eyes: Reports no additional eye complaints and Denies change in vision ENT: Reports system reviewed and no additional complaints, except as documented, Denies dizziness, Denies headache(s), Denies nasal congestion, Denies nasal discharge and Denies neck pain Cardiovascular: Cardiovascular: Reports no additional cardiovascular complaints, Denies chest pain, Denies leg edema and Denies dyspnea Respiratory: Respiratory: Reports no additional respiratory complaints, Denies cough and Denies dyspnea Gastrointestinal: Gastrointestinal: Reports no additional gastrointestinal complaints, Denies abdominal pain, Denies diarrhea, Denies nausea and Denies vomiting Genitourinary: Genitourinary: Reports no additional female genitourinary co mplaints and Denies urinary incontinence Musculoskeletal: Musculoskeletal: Reports no additional musculoskeletal complaints, Denies back pain, Reports arthralgias, Denies joint swelling, Denies neck pain, Denies numbness, Reports radiating pain into limb and Denies tingling Integumentary/Breasts: Skin/Breast: Reports system reviewed and no additional complaints, except as docu and Denies rash Neurologic: Reports system reviewed and no additional complaints, except as documented, Denies Abnormal speech present, Denies dizziness, Denies headache(s), Denies numbness, Denies tingling and Denies weakness PMFSH Past Medical History Attestation statement: The following information was validated with the patient. Source: old records reviewed and nursing notes reviewed Medical History Hypothyroidism Obesity Type 2 diabetes mellitus with morbid obesity Annual physical exam Vitamin D deficiency HLD (hyperlipidemia) T2DM (type 2 diabetes mellitus) Diabetes mellitus Hypertension Surgical History History of surgery History of colonoscopy History of appendectomy History of cholecystectomy S/P JOSIE (total abdominal hysterectomy) Family History Family History Father Diabetes Mother CHF (congestive heart failure) CVD (cardiovascular disease) Brother HIV (human immunodeficiency virus infection) Social History Social History Housing: House Alcohol intake: never Patient Tobacco Use Status: Former Tobacco user Tobacco use type: Cigarette e-Cigarette/Vaping Use: Never Used Second Hand Smoke Exposure: No Advance Directives: Yes Advance Directives on File: Yes Advance Directives Date on File: 10/01/23 service: No Current occupational status: retired Cognitive needs: No Hearing needs: No Vision needs: No Physical Exam Vital Signs: Vital Signs: Last Vital Signs Temp 98 F 10/10/23 11:24 Pulse 72 10/10/23 14:39 Resp 16 10/10/23 14:39 BP 129/47 L 10/10/23 14:39 Pulse Ox 94 10/10/23 14:39 O2 Del Method Room Air 10/10/23 14:39 BMI result Body Mass Index 33.4 Const: General: cooperative, healthy appearing, comfortable and no acute distress Orientation/consciousness: patient oriented x3 Limitations: no limitations HEENT: Head: Yes normal to inspection Ears: hearing grossly normal bilaterally General nose exam: Normal external nose present Face and sinus: Yes normal facial exam Mouth: Normal oral and palatal mucosa present Throat: Yes posterior oropharynx normal Eyes: General: appearance normal, both eyes and all related structures Pupils: Equal, round and reactive pupils present Neck: Neck: Yes normal visual inspection Chest: Chest palpation & inspection: normal inspection of the chest Resp: Effort & Inspection: normal respiratory effort Auscultation: clear to auscultation bilaterally Cardio: Rate: regular rate Rhythm: regular rhythm Peripheral pulses: Peripheral pulses 2+ throughout GI: Inspection: Yes normal to inspection Palpation (GI): Soft to palpation and nontender Auscultation: normal bowel sounds Back/Spine/Pelvis: Thoracic/Lumbar Spine: thoracic and lumbar spine normal to inspection Skin: General skin exam: no rashes or lesions noted Neuro: General: patient oriented x3, no focal motor deficits and normal sensation to monofilament Cranial nerves: Yes Equal, round and reactive pupils present Cognition (Neuro): normal cognition Speech: No Abnormal speech present Gait exam (Neuro): Normal gait present Motor exam (neuro): 5/5 motor strength present throughout Extrem: Other: There is tenderness on palpation to the left posterior calf. I do not appreciate any warmth, redness, swelling. There are normal DP and PT pulses. Normal sensation, There is some pain on palpation over the diffuse ankle with pain with active range of motion. There does not appear to be any joint effusion. Negative Caal test. Tenderness on palpation to the right lateral hip. This is worsened with passive range of motion. I do not appreciate any deformity, shortening or rotation. N ormal DP and PT pulses. Normal sensation. General: Yes normal to inspection Course Course Course Narrative: X-ray show degenerative changes. Ultrasound shows a left Arias cyst but no evidence of DVT. I discussed the findings with the patient and her family. I did offer short-term rehab and family spent some time determining what they feel it would be best further mother. At this time I do not feel that she can be home and so we will hold her in the emergency room and obtain a physical therapy evaluation and case management evaluation as well. Placed in physician observation pending disposition Medications Administered Generic Name Dose Route Start Last Admin Trade Name Freq PRN Reason Stop Dose Admin Prednisone 60 mg 10/10/23 14:15 10/10/23 14:42 Prednisone 20 Mg Tablet PO 10/15/23 14:14 60 mg DAILY CONNER Administration Discontinued Medications Generic Name Dose Route Start Last Admin Trade Name Lillian PRN Reason Stop Dose Admin Lidocaine 1 patch 10/10/23 14:11 10/10/23 14:42 Lidocaine 4 % Patch Adh..Patch TRANSDERMA 10/10/23 14:12 1 patch ONCE ONE Administration Protocol Oxycodone HCl 10 mg 10/10/23 11:21 10/10/23 12:16 Oxycodone Hcl Immed Release 5 Mg Tablet PO 10/10/23 11:22 10 mg ONCE ONE Administration Medical Decision Making Medical Decision Making MDM Narrative: 77 yo female w/ pmh of diabetes, hypertension, hyperlipidemia here with complaints of left calf pain and swelling since with no known injury or trauma.? Patient reports history of a unprovoked DVT years ago and she was on Coumadin for some time but is no longer on Coumadin.? She denies any shortness of breath or chest pain.? No redness, warmth, numbness or tingling of extremity.? Patient also complaining of right hip pain since yesterday with no known injury or trauma.? Taking Motrin and Tylenol home with continued pain There is tenderness on palpation to the left posterior calf.? I do not appreciate any warmth, redness, swelling.? There are normal DP and PT pulses. Normal sensation,? There is some pain on palpation over the diffuse ankle with pain with active range of motion.? There does not appear to be any joint effusion.? Negative Caal test. Tenderness on palpation to the right lateral hip.? This is worsened with passive range of motion.? I do not appreciate any deformity, shortening or rotation.? Normal DP and PT pulses.? Normal sensation. WIll provide analgesia Will need ambulation trial to determine disposition Differential Diagnosis Differential Diagnoses: The differential diagnosis associated with the presentation includes OA, strain, sprain, DVT Low concern for necrotizing fasciitis, compartment syndrome, cellulitis, malignancy, Admission/Observation Consideration of admission/observation: Escalation of care including admission/observation considered Independent Interpretation I performed an independent interpretation of an: Plain X-Ray and Ultrasound Interpretation: I independently reviewed the ultrasound/x-ray agree with Radiology report Radiology Impression Discussion of test interpretation with radiology: I have reviewed the radiologist's reading. Radiologist Impression: [address] [address] Ultrasound Report Signed Patient: Naty Cervantes MR#: [id number] : 1945 Acct:[id number] Age/Sex: 77 / F ADM Date: 10/10/23 Loc: .ED Attending Dr: Ordering Physician: Cheri Saleh NP Date of Service: 10/10/23 Procedure(s): US venous duplex LE LT Accession Number(s): [id number] cc: Allen Cortés MD; Cheri Saleh NP~ EXAMINATION: US VENOUS ULTRASOUND WITH DOPPLER LOWER EXTREMITY, LEFT CLINICAL INFORMATION: Left lower extremity pain and swelling COMPARISON: Left leg DVT study 04/08/2018 TECHNIQUE: Ultrasound of the deep veins is performed from the hip to the calf with compression sonography and color and pulse Doppler assessment. Spectral analysis with color-flow imaging is performed. FINDINGS: There is normal venous compression and respiratory variation and augmented flow. The visualized common femoral vein, superficial femoral vein, profunda femoral vein, popliteal vein, and the trifurcation region shows no evidence of deep venous thrombosis. There is a 4.0 x 1.5 x 2.3 cm Arias's cyst present. If the patient's symptoms persist, followup ultrasound in 5 days 7 days might be of value to exclude proximal propagation from a non-visualized calf vein. US/US venous duplex LE LT IMPRESSION: No DVT demonstrated in the left lower extremity. [address] [address] XRay Report Signed Patient: Naty Cervantes MR#: [id number] : 1945 Acct:[id number] Age/Sex: 77 / F ADM Date: 10/10/23 Loc: .ED Attending Dr: Ordering Physician: Cheri Saleh NP Date of Service: 10/10/23 Procedure(s): XR tibia fibula LT 2V Accession Number(s): [id number] cc: Allen Cortés MD; Cheri Saleh NP~ EXAMINATION: PELVIS AND RIGHT HIP, LEFT TIB-FIB, LEFT ANKLE CLINICAL INFORMATION: Pain without trauma COMPARISON: Left knee 08/05/2022, right hip 08/05/2022 TECHNIQUE: Single view pelvis with 2 additional views right hip, 2 views left tib-fib, 4 views left ankle FINDINGS: Mild degenerative changes are present in the hip. No fractures or bony destructive lesions are seen. Again seen is ossification lateral to the right iliac spine, unchanged from prior. Degenerative changes are present in the knee in both the medial and lateral compartment with some narrowing and sclerosis with osteophytes. The patellofemoral compartment is not well assessed on these tibia and fibula radiographs. Some mild degenerative changes seen at the ankle with some medial and lateral femoral condyle osteophytes. Subcutaneous calcification is seen medially possibly secondary to venous stasis. The ankle mortise appears stable. Moderate degenerative changes are noted in the tarsal bones. There is mild calcaneal spurring and some plantar fascia calcification. XR/XR tibia fibula LT 2V IMPRESSION: 1. No evidence of an acute osseous injury. 2. Degenerative changes as described above. Independent Historian Clinical information obtained from an independent historian. History obtained from or confirmed by: EMS Discharge Plan Discharge Clinical Impression: Synovial cyst of popliteal space [Arias], left knee, Arthritis of right hip Patient Disposition: Still a Patient Prescriptions: No Action insulin lispro [Humalog U-100 Insulin] 100 unit/mL solution 10 unit subcut TID Qty: 10 5RF liraglutide 0.6 mg/0.1 mL (18 mg/3 mL) pen injector 1.2 mg subcut DAILY 30 Days Qty: 6 11RF insulin lispro [Humalog KwikPen Insulin] 100 unit/mL insulin pen 10 unit subcut TID Qty: 15 8RF naproxen [Naprosyn] 500 mg tablet 500 mg PO BID PRN (Reason: pain) Qty: 60 2RF (DME) blood sugar diagnostic Strip See Rx Instructions .ROUTE .MEDSUPPLY Qty: 100 11RF Rx Instructions: FREESTYLE LITE TEST STRIPS TO CHECK THREE TIMES A DAY diclofenac sodium 1 % gel 2 g topical QID Qty: 100 8RF Rx Instructions: apply to single elbow, wrist or hand; for hand includes palm/fingers/back of hand metformin 1,000 mg tablet 1,000 mg PO BID Qty: 180 3RF ezetimibe 10 mg tablet 10 mg PO DAILY Qty: 90 1RF levothyroxine 112 mcg capsule 112 mcg PO DAILY Qty: 90 6RF rosuvastatin 20 mg tablet 20 mg PO DAILY Qty: 90 11RF amlodipine 10 mg tablet 10 mg PO DAILY Qty: 90 1RF gabapentin 100 mg capsule 300 mg PO BEDTIME Qty: 90 5RF tizanidine 4 mg capsule 4 mg PO Q8H PRN (Reason: muscle spasticity) Qty: 60 5RF Paxlovid 300 mg (150 mg x 2)-100 mg tablets,dose pack See Rx Instructions PO .COMPLEX PRN (Reason: covid) Qty: 30 0RF Rx Instructions: take TWO 150 mg tablets of nirmatrelvir with ONE 100 mg tablet of ritonavir twice daily for 5 days orally PRN; losartan 25 mg tablet 25 mg PO DAILY 30 Days Qty: 90 8RF lorazepam 1 mg tablet 1 mg PO TID PRN (Reason: anxiety) Qty: 60 3RF (DME) blood-glucose meter [FreeStyle Lite Meter] Kit See Rx Instructions .ROUTE .MEDSUPPLY Qty: 1 0RF Rx Instructions: As directed Referrals: [facility] [Other] (Agency will call you to arrange 1st visit. )
--- NOTE | 2023-10-10 11:36 | PC.NURSE ---
pt changed into hospital attire, provider at bedside, pt to have DVt study as well as imaging, plan for analgesia at this time call lerma within reach
--- NOTE | 2023-10-10 12:05 | PC.NURSE ---
us at bedside
[2023-10-10] MEDS: oxyCODONE HCl Immed Release 5 MG TABLET 10 MG PO (12:16)
--- NOTE | 2023-10-10 12:20 | PC.NURSE ---
pt medicated per mar foer 07/02 LLE PAin
--- NOTE | 2023-10-10 14:15 | PC.NURSE ---
pt medication recrd updated plan for pt to go to overflow for PT/CM
[2023-10-10] MEDS: Lidocaine 4 % Patch ADH..PATCH 1 PATCH TRANSDERMA ×2 (14:42→18:51)
[2023-10-10] MEDS: predniSONE 20 MG TABLET 60 MG PO (14:42)
[2023-10-10 15:07] LABS: Glucose, Whole Blood 106 mg/dL (60-115)
--- NOTE | 2023-10-10 15:25 | MHC.CM.ED ---
Received case management consult from Cheri ROY. Patient came to the ER due to leg pain. Work up essentially negative. Patient was originally going to go home with fpc and physical therapy. However, patient and family decided they didn't feel that was safe because patient continues to still have pain. Anticiipate patient will remain in ER over. Attempted to meet with patient and family to discuss d/c planning. Nursing care currently being provided. Will attempt to meet again. Continue to monitor for d/c needs.
--- NOTE | 2023-10-10 15:38 | MHC.EDTECH ---
Patient just came from the main ed to overflow ,pt was moved into hospital bed ,vitals taken ,care given and pure wick in place ,This pct offer pt fluids ,Pt had a jacoby gabe to drink ,warm blanket given ,Pt daughters at bedside ,Call lerma within Pt reach .
--- NOTE | 2023-10-10 16:50 | PC.NURSE ---
repositioned, another pillow given. eating. no respiratory distress. family w pt at bedside
[2023-10-10] MEDS: Cyclobenzaprine HCl 10 MG TABLET PO (16:58)
--- NOTE | 2023-10-10 17:05 | MHC.EDTECH ---
pT WAS REPOSITION ON HER SIDE WITH PILLOWS .
[2023-10-10 17:13] LABS: Glucose, Whole Blood 115 mg/dL (60-115)
--- NOTE | 2023-10-10 17:49 | PC.NURSE ---
boosted, repositioned w more pillows, changed pad, braeden care w tech at bedside s/p incontinence- purewick intact. no distress
--- NOTE | 2023-10-10 17:58 | MHC.EDTECH ---
Patient was incontinent of urine ,care given ,Patient ate 25 % of meal drank 240 ml fluids ,Patient daughter still here visiting .
[2023-10-10] MEDS: oxyCODONE HCl Immed Release 5 MG TABLET PO (18:31)
--- NOTE | 2023-10-10 20:46 | MHC.EDTECH ---
Patient blood sugar check ,vitals taken ,pt was reposition and boosted up in bed ,Pudding giving for snack and fresh pitcher ice water given ,pt daughter still at bedside .
--- NOTE | 2023-10-10 21:04 | PC.NURSE ---
Pt requested and given ice water. Daughter at bedside. Plan of care ongoing.
[2023-10-10 21:27] LABS: Glucose, Whole Blood 196 mg/dL (60-115)
[2023-10-11 06:46] VITALS: BP 120/78; PULSE 54; RESP 14; O2SAT 90
--- NOTE | 2023-10-11 06:47 | PC.NURSE ---
Both Doni KHLAIL and Dr Camacho notified of pts POC. Plan of care ongoing.
--- NOTE | 2023-10-11 07:07 | PC.NURSE ---
Provider Ellen notified of pts poc. Plan of care ongoing. Report and handoff given on coming JOVANNA Grossman.
[2023-10-11 08:08] LABS: Glucose, Whole Blood 196 mg/dL (60-115)
[2023-10-11 08:08] LABS: Glucose, Whole Blood 196 mg/dL (60-115)
[2023-10-11] MEDS: predniSONE 20 MG TABLET 60 MG PO (09:58)
[2023-10-11] MEDS: oxyCODONE HCl Immed Release 5 MG TABLET PO ×2 (09:59→22:50)
[2023-10-11] MEDS: Cyclobenzaprine HCl 10 MG TABLET PO ×2 (10:00→22:50)
--- NOTE | 2023-10-11 10:45 | PHA.MEDREC ---
Pharmacy Consult ? Medication Reconciliation Pharmacy has completed the medication reconciliation.
[2023-10-11 10:49] LABS: COVID-19 Test Negative (Negative); IDNOW Serial# 08D9AD1C
[2023-10-11] MEDS: Levothyroxine Sodium 112 MCG TABLET PO (11:09)
[2023-10-11] MEDS: Losartan Potassium 25 MG TABLET PO (11:09)
[2023-10-11] MEDS: Ezetimibe 10 MG TABLET PO (11:09)
[2023-10-11] MEDS: metFORMIN HCl 1,000 MG TABLET 1000 MG PO ×2 (11:09→20:29)
[2023-10-11] MEDS: polyethylene glycoL 3350 17 GM POWD.PACK PO (11:10)
[2023-10-11 11:20] VITALS: BP 150/61; PULSE 60; RESP 16
--- NOTE | 2023-10-11 11:51 | PC.NURSE ---
assumed care of pt at 0700. pt a&o x4, calm, and cooperative. pt diet changed to diabetic diet in chart. med rec completed by pharmacy. pt ate breakfast and cleaned up. purewick in place. lidocaine patch removed. pt medicated per jan with AM meds. pt reporting belly pain, sts she thinks she is constipated. no BM since thursday per pt. SIMRAN Hughes aware and ordered meds. pt medicated per jan. awaiting PT eval per CLAIRE Zamorano. pt son in to visit pt earlier. pt currently resting quietly in bed, watching tv. rr even/unlabored. call lerma within pt reach. plan of care ongoing.
[2023-10-11 12:03] LABS: Glucose, Whole Blood 280 mg/dL (60-115)
[2023-10-11] MEDS: Insulin Lispro 100 UNIT/ML 3 ML VIAL 10 UNIT SUBCUT ×2 (12:34→17:28)
[2023-10-11 14:00] VITALS: BP 132/48; PULSE 75; RESP 16; TEMP 36.3; O2SAT 94
--- NOTE | 2023-10-11 14:14 | MHC.CM.ED ---
Patient remains in ER overflow. Met with patient in regards to discharge planning. Patient lives with her , ambulates independently and had no services prior to coming to the ER. Patient has a HCP at home. PCP verified. Patient received 3 Moderna and 1 Pfizer vaccine. Patient aware physical therapy eval would not be able before tomorrow. Also explained if STR was recommended. a list of facilities would be provided. Patient is adamantly declining STR. Her recently returned home from the hospital and she wants to be with him. T/W offered for patient to return home today. Patient became upset and stated she didn't want to go home or go to rehab. Patient requested T/W speak with her granddaughter, Milli, because she's a nurse. Spoke with Milli via telephone at [phone]. Above situation explained. Milli requested patient's Arias's Cyst be drained prior to coming home. T/W explained patietn would have to follow up outpatient with orthopedics. Not appropriate for the ER to do this at this time. Milli verbalized understanding. Requesting patient stay overnight and patient's daughter will transport her home tomorrow, 10/12 at 10am. Patient's is active with [facility]. Milli agreeable to referral being made to [facility]. Referral made via [facility]. Patient, Ngoc NUGENT and Dayanara KHALIL aware. Continue to monitor for d/c needs
--- NOTE | 2023-10-11 17:08 | MHC.EDTECH ---
Diced pork chop for patient and brought patient a few packs of saltine crackers.
--- NOTE | 2023-10-11 19:16 | PC.NURSE ---
pt placed on bed grady for bm, no success. pt requesting commode, sts she is feeling better. commode brought to pt room, will ring when has to use. will have 2 standby assist. report given to JOVANNA Chavis.
[2023-10-11] MEDS: Gabapentin 300 MG CAPSULE PO (20:29)
[2023-10-11 22:00] VITALS: BP 124/52; PULSE 55; RESP 16; TEMP 36.2; O2SAT 95
[2023-10-11] MEDS: Docusate Sodium 100 MG CAPSULE PO (22:50)
--- NOTE | 2023-10-11 22:51 | MHC.EDTECH ---
Brought patient a pudding.
[2023-10-12 06:00] VITALS: BP 138/59; PULSE 55; RESP 18; TEMP 36.6; O2SAT 95
[2023-10-12] MEDS: Levothyroxine Sodium 112 MCG TABLET PO (06:07)
[2023-10-12 07:31] LABS: Glucose, Whole Blood 149 mg/dL (60-115)
--- NOTE | 2023-10-12 09:37 | MHC.CM.PN ---
Addendum entered by Stacey Mustafa 10/12/23 14:19: PT RECOMMENDING STR REFERRALS SENT Addendum entered by Stacey Mustafa 10/12/23 12:32: CM MET WITH PT AND HER DAUGHTER AT BEDSIDE THEY REPORT THEY WERE TOLD THE PT WOULD HAVE A PT EVAL THIS AM CM SPOKE TO PROVIDER WHO PUT THE ORDER IN PT EVAL PENDING Addendum entered by Stacey Mustafa 10/12/23 09:56: CM MET WITH PT AND INFORMED HER COMFORT PLUS HAS ACCEPTED HER REFERRAL SHE IS AWARE SHE WILL BE GOING HOME TODAY HOWEVER STATED SHE HAS ONLY BEEN OUT OF BED A COUPLE TIMES AND WAS HOPING SHE WOULD STAY ANOTHER DAY CM EXPLAINED SHE WOULD HAVE PT AT HOME AND STAYING WOULD LIKELY NOT BENEFIT HER SHE WOULD NOT BE GETTING PT TREATMENTS HERE, HOWEVER THIS WOULD HAPPEN AT HOME PT STATES FINE, ILL GO HOME . CM ATTEMPTED TO REACH PTS DAUGHTER, FELIPE. VM MESSAGE LEFT REQUESTING A RETURN CALL Original Note: PLAN WAS FOR PT TO DC HOME THIS MORNING WITH [facility] WAS PTS PREFERRED VNA, HOWEVER THEY ARE NOT OFFERING COMFORT PLUS HAS ACCEPTED PTS REFERRAL PT WILL DC HOME TODAY WITH [facility] FOR PENITENTIARY AND PHYSICAL THERAPY
--- NOTE | 2023-10-12 09:42 | MHC.EDTECH ---
Assisted pt with commode. Pt was cleaned, changed, and repositioned.
[2023-10-12] MEDS: metFORMIN HCl 1,000 MG TABLET 1000 MG PO (09:55)
[2023-10-12] MEDS: Ezetimibe 10 MG TABLET PO (09:55)
[2023-10-12] MEDS: Cyclobenzaprine HCl 10 MG TABLET PO (09:55)
[2023-10-12] MEDS: predniSONE 20 MG TABLET 60 MG PO (09:55)
[2023-10-12] MEDS: Losartan Potassium 25 MG TABLET PO (09:55)
--- NOTE | 2023-10-12 10:58 | PC.NURSE ---
Addendum entered by Ngoc Galvan 10/12/23 10:59: plan for physical therapy evaluation prior to discharge Original Note: medicated per the MAR, patient remains alert and oriented with no signs/symptoms of distress. met with case management/family at bedside.
[2023-10-12 11:35] VITALS: BP 138/59; PULSE 55; O2SAT 95
--- NOTE | 2023-10-12 12:03 | PC.NURSE ---
physical therapy currently meeting with patient
[2023-10-12 13:50] VITALS: BP 137/65; PULSE 54; RESP 16; TEMP 36.4; O2SAT 96
--- NOTE | 2023-10-12 13:56 | MHC.EDTECH ---
Assited pt with commode and back to bed.
--- NOTE | 2023-10-12 14:48 | MHC.EDTECH ---
Pt assisted to recliner.
--- NOTE | 2023-10-12 14:49 | PC.NURSE ---
patient complaining of pain in her lower back and bottom, offered PRN pain medications after assisting into recliner. patient unsure if she wants to utilize them at this time, call lerma in reach encouraged to use if she decides to utilize PRN pain medications. warm blanket provided.
--- NOTE | 2023-10-12 16:26 | MHC.CM.PN ---
DP: dc to [facility] at 18:30 tonight via BLS mary. Patient, daughter, RN and MD aware.
[2023-10-12 17:03] LABS: Glucose, Whole Blood 284 mg/dL (60-115)
[2023-10-12] MEDS: Insulin Lispro 100 UNIT/ML 3 ML VIAL 10 UNIT SUBCUT (17:03)
--- NOTE | 2023-10-12 17:42 | MHC.EDTECH ---
pt family and pt request to change into their clothing for transport. pt is now changed awaiting transport
--- NOTE | 2023-10-12 19:40 | PC.NURSE ---
Pt seen accompanied by staff to the BR with a walker, alert and oreinted. 2EMTs came to take pt to SNF, pertinent papers given by staff,daughter at bedside aware, pt left the unit at 1915.
== END 2023-10-12 19:15 | disposition skilled nursing facility (03) ==
PROVIDERS: Physician Assistant; Emergency Provider Emergency Medicine; PCP Internal Medicine
DX: M71.22 Synovial cyst of popliteal space [Baker], left knee (principal); M16.11 Unilateral primary osteoarthritis, right hip; M79.662 Pain in left lower leg; M25.551 Pain in right hip; Z11.52 Encounter for screening for COVID-19; E11.9 Type 2 diabetes mellitus without complications; I10 Essential (primary) hypertension; E78.5 Hyperlipidemia, unspecified; Z90.49 Acquired absence of other specified parts of digestive tract; Z90.710 Acquired absence of both cervix and uterus; Z87.891 Personal history of nicotine dependence; Z79.4 Long term (current) use of insulin; Z79.899 Other long term (current) drug therapy
CPT/HCPCS: 73502; 73590; 73600; 82947; 87635; 93971; 97161; 99285

== ENCOUNTER 2023-10-30 14:27 | Outpatient (AMB) | payer MEDICARE, SELFPAY ==
[2023-10-30 14:29] VITALS: BP 132/64; PULSE 66; O2SAT 98; BMI 31.8
--- NOTE | 2023-10-30 14:29 | MHC.PC.OV ---
Vital Signs 10/30/23 14:29 Height 5 ft 4 in Weight 185 lb BMI 31.8 BP 132/64 Blood Pressure Location Lt brachial Position Sitting Pulse 66 Pulse Source Pulse Oximeter Pulse Oximetry (%) 98 Oxygen Delivery Method Room Air Intake Visit Reasons: HD F/U-[facility]. Rehab-10/22/23-Leg Swelling Roller Mechanic Required: No Crop Production Advisor: Present Accompanied by: Daughter Allergies acetaminophen [Percocet] Allergy (Unknown, Verified 10/30/23 14:30) Stomach upset amoxicillin [Augmentin] Allergy (Unknown, Verified 10/30/23 14:30) hives clavulanic acid [Augmentin] Allergy (Unknown, Verified 10/30/23 14:30) hives furosemide Allergy (Unknown, Verified 10/30/23 14:30) unknown latex [LATEX] Allergy (Unknown, Verified 10/30/23 14:30) UNKNOWN lisinopril Allergy (Unknown, Verified 10/30/23 14:30) Unknown oxycodone [Percocet] Allergy (Unknown, Verified 10/30/23 14:30) Stomach upset tramadol Allergy (Unknown, Verified 10/30/23 14:30) Stomach uspet Medication List - Last Reconciled 11/02/23 by Allen Cortés MD azithromycin take 500 mg today (day 1), then 250 mg for 4 days (days 2-5) PO blood sugar diagnostic FREESTYLE LITE TEST STRIPS TO CHECK THREE TIMES A DAY blood-glucose meter (FreeStyle Lite Meter kit) As directed cyanocobalamin (vitamin B-12) 1,000 mcg PO DAILY diclofenac sodium 1% 2 grams topical BID PRN ezetimibe 10 mg PO DAILY gabapentin 300 mg (3 x 100 mg) PO BEDTIME insulin lispro (Humalog KwikPen (U-100) Insulin) 1 sliding scale dose subcut TIDAC levothyroxine 112 mcg PO DAILY liraglutide 1.2 mg (0.2 mL) subcut DAILY 30 days lorazepam 1 mg PO TID PRN losartan 25 mg PO DAILY 30 days metformin 1,000 mg PO BID naproxen (Naprosyn) 500 mg PO BID PRN rosuvastatin 20 mg PO BEDTIME Tobacco use date assessed: 07/03/23 Fall risk assessment: No Falls in past year Last assessed Fall Risk: 10/30/23 Dental Screening Dental Screen Date: 10/30/23 Did you have a dental visit in the last 12 months?: Yes Did you have a dental problem in the last 6 months where you did not have access to dental care?: No Was dental information given to patient?: Patient has dentist HPI HD F/U-[facility] Rehab-10/22/23-Leg Swelling HPI Details DM HTN and hyperlip; stable on rx; compliant PFSH Medical History Hypothyroidism Obesity Type 2 diabetes mellitus with morbid obesity Annual physical exam Vitamin D deficiency HLD (hyperlipidemia) T2DM (type 2 diabetes mellitus) Diabetes mellitus Hypertension Surgical History History of surgery History of colonoscopy History of appendectomy History of cholecystectomy S/P JOSIE (total abdominal hysterectomy) Family History Father Diabetes Mother CHF (congestive heart failure) CVD (cardiovascular disease) Brother HIV (human immunodeficiency virus infection) Social History Housing: House Alcohol intake: never Patient Tobacco Use Status: Former Tobacco user Tobacco use type: Cigarette e-Cigarette/Vaping Use: Never Used Second Hand Smoke Exposure: No Advance Directives Date on File: 10/01/23 service: No Current occupational status: retired Cognitive needs: No Hearing needs: No Vision needs: No Questionnaire Thrive Questionnaire Date Thrive assessed: 01/09/23 ARSLAN-7 AMB Questionnaire ARSLAN-7 Date ARSLAN - 7 assessed: 08/28/23 Source: Developed by Drs. Mendez Sanz, Shannan Quintanilla, Fuentes Sales and colleagues, with an educational aurelia from [employer]. Review of Systems Const Denies chills, Denies fatigue, Denies headache(s) and Denies weight loss Eyes Denies change in vision, Denies diplopia and Denies eye pain ENT Denies vertigo, Denies dizziness, Denies headache(s) and Denies nasal discharge Card Denies chest pain, Denies rapid heart rate and Denies dyspnea on exertion Resp Denies chest congestion, Denies cough, Denies pain with cough and Denies dyspnea on exertion GI Denies abdominal pain, Denies hematochezia and Denies change in bowel habits Musc Denies myalgias, Denies arthralgias and Denies joint swelling Skin/Breast Denies lesions and Denies unusual bruising Neuro Denies vertigo, Denies dizziness, Denies headache(s) and Denies focal weakness Endo Denies fatigue Physical exam (Primary Care) Vital Signs: Last Vital Signs Pulse 66 10/30/23 14:29 BP 132/64 10/30/23 14:29 Pulse Ox 98 10/30/23 14:29 Oxygen Delivery Method Room Air 10/30/23 14:29 BMI result Body Mass Index 31.8 Tobacco/Smoking Status: Tobacco use Status Tobacco use date assessed 07/03/23 10/30/23 14:33 Patient Tobacco Use Status Former Tobacco user 10/30/23 14:33 Tobacco use type Cigarette 10/30/23 14:33 e-Cigarette/Vaping Use Never Used 10/30/23 14:33 Thrive Assessment: Date of Thrive Assessment Date Thrive assessed 01/09/23 10/30/23 14:33 Const General: cooperative, healthy appearing and no acute distress Orientation/consciousness: oriented to person, oriented to place and oriented to time HENMT Head: Yes normal to inspection, Yes normocephalic and Yes atraumatic Mouth: Normal oral and palatal mucosa present and tongue normal Throat: Yes posterior oropharynx normal and Yes uvula midline Eyes General: appearance normal, both eyes and all related structures Neck Neck: Yes normal visual inspection, Yes full ROM and Yes no lymphadenopathy Thyroid: Thyroid normal Carotids: normal carotid upstroke Chest Chest palpation & inspection: normal inspection of the chest Resp Effort & Inspection: normal respiratory effort and able to speak in complete sentences Auscultation: clear to auscultation bilaterally Cardio Jugular venous distension: no JVD Palpation: normal PMI Rate: regular rate Rhythm: regular rhythm Heart sounds: S1 normal heart sound present and S2 normal heart sound present GI Inspection: Yes normal to inspection Palpation (GI): Soft to palpation and No hepatosplenomegaly present Auscultation: normal bowel sounds General: Yes no CVA tenderness Back/Spine/Pelvis Back: no CVA tenderness Skin General skin exam: no rashes or lesions noted Neuro General: oriented to person, oriented to place and oriented to time Extrem General: Yes normal to inspection and Yes full ROM Assessment and Plan Assessment & Plan (1) Type 2 diabetes mellitus with morbid obesity: Code(s): E11.69 - Type 2 diabetes mellitus with other specified complication; E66.01 - Morbid (severe) obesity due to excess calories Plan: stable; same rx (2) HLD (hyperlipidemia): Code(s): E78.5 - Hyperlipidemia, unspecified Qualifiers: Hyperlipidemia type: unspecified Qualified Code(s): E78.5 - Hyperlipidemia, unspecified Plan: stable; same rx (3) Hypertension: Code(s): I10 - Essential (primary) hypertension Qualifiers: Hypertension type: unspecified Qualified Code(s): I10 - Essential (primary) hypertension Plan: stable; same rx Orders: Referrals Orthopedics Referral G56.00 - Carpal tunnel syndrome, unspecified upper limb General Surgery Referral L02.91 - Cutaneous abscess, unspecified Medications: New insulin lispro (Humalog KwikPen (U-100) Insulin) 10-12 UNITS SS PER PATIENT 1 sliding scale dose subcut TIDAC 15 mL 0RF azithromycin take 500 mg today (day 1), then 250 mg for 4 days (days 2-5) PO 6 tabs 0RF Coding Level of Care Code Est Pt Level 4 (34355) Diagnoses Type 2 diabetes mellitus with morbid obesity E11.69; E66.01 Hyperlipidemia, unspecified hyperlipidemia type E78.5 Hyperlipidemia type: unspecified Hypertension, unspecified type I10 Hypertension type: unspecified
== END 2023-10-30 15:10 | disposition home or self-care (01) ==
PROVIDERS: PCP Internal Medicine; Visit Provider Internal Medicine
DX: E11.69 Type 2 diabetes mellitus with other specified complication (principal); E66.01 Morbid (severe) obesity due to excess calories; Z68.30 Body mass index [BMI] 30.0-30.9, adult; E78.5 Hyperlipidemia, unspecified; I10 Essential (primary) hypertension
CPT/HCPCS: 99214

== ENCOUNTER 2023-11-03 13:09 | Outpatient (REF) | payer MEDICARE, SELFPAY | END 2023-11-03 13:10 | disposition home or self-care (01) | LOC: HO.LAB 13:09 | PROVIDERS: PCP Internal Medicine; Referring Provider Internal Medicine; Visit Provider Surgery | DX: L02.91 Cutaneous abscess, unspecified (principal) | CPT/HCPCS: 10060; 87070; 87077; 87186; 87205; 99202 ==

== ENCOUNTER 2023-11-03 13:09 | Outpatient (AMB) | payer MEDICARE, SELFPAY ==
--- NOTE | 2023-11-03 13:15 | MHC.OFFVIS ---
Intake Vital Signs 11/03/23 13:26 Height 5 ft 4 in Weight 182 lb BMI 31.2 BP 145/70 H Blood Pressure Location Rt brachial Position Sitting Pulse 82 Intake Visit Reasons: subcutaneous abscess Intake Note: Patient referred for growth on mid lower back. Recently got infected X3wks ago. C/o oozing, redness, painful. Was prescribed amox and Z-pack. Call Center Supervisor Required: No Accompanied by: daughter Letty Allergies acetaminophen [Percocet] Allergy (Unknown, Verified 11/03/23 13:23) Stomach upset amoxicillin [Augmentin] Allergy (Unknown, Verified 11/03/23 13:23) hives clavulanic acid [Augmentin] Allergy (Unknown, Verified 11/03/23 13:23) hives furosemide Allergy (Unknown, Verified 11/03/23 13:23) unknown latex [LATEX] Allergy (Unknown, Verified 11/03/23 13:23) UNKNOWN lisinopril Allergy (Unknown, Verified 11/03/23 13:23) Unknown oxycodone [Percocet] Allergy (Unknown, Verified 11/03/23 13:23) Stomach upset tramadol Allergy (Unknown, Verified 11/03/23 13:23) Stomach uspet Medication List - Last Reconciled 11/03/23 by Donell Aaron MD azithromycin take 500 mg today (day 1), then 250 mg for 4 days (days 2-5) PO blood sugar diagnostic FREESTYLE LITE TEST STRIPS TO CHECK THREE TIMES A DAY blood-glucose meter (FreeStyle Lite Meter kit) As directed cyanocobalamin (vitamin B-12) 1,000 mcg PO DAILY diclofenac sodium 1% 2 grams topical BID PRN ezetimibe 10 mg PO DAILY gabapentin 300 mg (3 x 100 mg) PO BEDTIME insulin lispro (Humalog KwikPen (U-100) Insulin) 1 sliding scale dose subcut TIDAC levothyroxine 112 mcg PO DAILY liraglutide 1.2 mg (0.2 mL) subcut DAILY 30 days lorazepam 1 mg PO TID PRN losartan 25 mg PO DAILY 30 days metformin 1,000 mg PO BID naproxen (Naprosyn) 500 mg PO BID PRN rosuvastatin 20 mg PO BEDTIME HPI HPI Comments History of Present Illness Details Patient presents with her daughter. She has hacked approximately 3 week history of a infected sebaceous cyst of the midback. She has been on antibiotics with limited response. Because of progressive symptoms, she presents here today she has never had such problems before. Chart was reviewed patient evaluated. Patient is diabetic. [facility] Medical History Hypothyroidism Obesity Type 2 diabetes mellitus with morbid obesity Annual physical exam Vitamin D deficiency HLD (hyperlipidemia) T2DM (type 2 diabetes mellitus) Diabetes mellitus Hypertension Surgical History History of surgery History of colonoscopy History of appendectomy History of cholecystectomy S/P JOSIE (total abdominal hysterectomy) Family History Father Diabetes Mother CHF (congestive heart failure) CVD (cardiovascular disease) Brother HIV (human immunodeficiency virus infection) Social History Housing: House Alcohol intake: never Patient Tobacco Use Status: Former Tobacco user Tobacco use type: Cigarette e-Cigarette/Vaping Use: Never Used Second Hand Smoke Exposure: No Advance Directives Date on File: 10/01/23 service: No Current occupational status: retired Cognitive needs: No Hearing needs: No Vision needs: No Physical Exam Vital Signs: Last Vital Signs Pulse 82 11/03/23 13:26 BP 145/70 H 11/03/23 13:26 BMI result Body Mass Index 31.2 Back/Spine/Pelvis Other: Approximately 4 x 3 cm mid back infected/abscess sebaceous cyst. Office Procedures I&D Drain Details: Patient and daughter had risks, benefits, alternatives of I and D of back abscess reviewed which included but not limited to bleeding, infection, recurrence, numbness, pain, scarring wished to proceed. All questions were answered. After appropriate positioning, patient underwent 1% lidocaine Betadine prep of a mid back sebaceous cyst measuring approximately 4 x 3 cm. Copious amounts of purulent material retrieved. Cultures were obtained. Wound was irrigated and secured hemostasis and packed and dressing applied. Procedure well tolerated by patient. 12499-Utgbbdip of Skin Abscess, complex All charges added?: Procedure code (CPT) selection complete Assessment & Plan Assessment & Plan (1) Abscess of skin: Code(s): L02.91 - Cutaneous abscess, unspecified Plan: Patient will be given script for antibiotics, analgesics, and will see me in proximal weeks time. [facility]NA services with [facility] and office will be arranged. Patient claims that she is not allergic to acetaminophen, codeine, or amoxicillin. She states she in fact ext acetaminophen and had amoxicillin few weeks ago. Orders: Orders Routine Culture w Gram Stain Today L02.91 - Cutaneous abscess, unspecified AMB Incision & Drainage Today L02.91 - Cutaneous abscess, unspecified Medications: New cephalexin 500 mg PO TID 30 caps 0RF hydrocodone-acetaminophen 5-325 mg Partial Fill upon patient request. 1 tab PO Q4-6H PRN 30 tabs 0RF pain L02.91 - Cutaneous abscess, unspecified Coding Level of Care Code New Pt Level 5 (60691) Diagnoses Abscess of skin L02.91 CPT Codes I&D Drain - Drain 2: 38027-Hpxhvhle of Skin Abscess, complex ([id number])
[2023-11-03 13:26] VITALS: BP 145/70; PULSE 82; BMI 31.2
== END 2023-11-03 13:44 | disposition home or self-care (01) ==
PROVIDERS: PCP Internal Medicine; Referring Provider Internal Medicine; Visit Provider Surgery
DX: L02.91 Cutaneous abscess, unspecified (principal)
CPT/HCPCS: 10060; 99204

== ENCOUNTER → 2023-11-04 13:12 | Outpatient (BNVA) | payer MEDICARE, SELFPAY | PROVIDERS: PCP Internal Medicine; Visit Provider Surgery ==

== ENCOUNTER 2023-11-06 10:25 | Outpatient (AMB) | payer MEDICARE, SELFPAY ==
--- NOTE | 2023-11-06 10:27 | A.OFFVIS_ITS ---
Intake Intake Visit Reasons: OV - Left Knee OA - Last Injection 09/04/22 Intake Note: Naty is a 77 year old female who presents today for a follow up of her left knee pain. Last injection was done 09/04/22. Patient reports that this injection was helpful. She would like to repeat injection. She also reports that she has been having right hip pain since about september. She is interested in having a hip injection as well Allergies acetaminophen [Percocet] Allergy (Unknown, Verified 11/03/23 13:23) Stomach upset amoxicillin [Augmentin] Allergy (Unknown, Verified 11/03/23 13:23) hives clavulanic acid [Augmentin] Allergy (Unknown, Verified 11/03/23 13:23) hives furosemide Allergy (Unknown, Verified 11/03/23 13:23) unknown latex [LATEX] Allergy (Unknown, Verified 11/03/23 13:23) UNKNOWN lisinopril Allergy (Unknown, Verified 11/03/23 13:23) Unknown oxycodone [Percocet] Allergy (Unknown, Verified 11/03/23 13:23) Stomach upset tramadol Allergy (Unknown, Verified 11/03/23 13:23) Stomach uspet HPI OV - Left Knee OA - Last Injection 09/04/22 HPI Details Naty is a 77 year old woman who returns to discuss her left knee OA. She has pain with walking and standing from a seated position,. She was last seen, and injected, on 09/04/22, with good relief. She complains of worsening left knee pain with activity and would like to repeat an injection today. [facility] Medical History Hypothyroidism Obesity Type 2 diabetes mellitus with morbid obesity Annual physical exam Vitamin D deficiency HLD (hyperlipidemia) T2DM (type 2 diabetes mellitus) Diabetes mellitus Hypertension Surgical History History of surgery History of colonoscopy History of appendectomy History of cholecystectomy S/P JOSIE (total abdominal hysterectomy) Family History Father Diabetes Mother CHF (congestive heart failure) CVD (cardiovascular disease) Brother HIV (human immunodeficiency virus infection) Social History Housing: House Alcohol intake: never Patient Tobacco Use Status: Former Tobacco user Tobacco use type: Cigarette e-Cigarette/Vaping Use: Never Used Second Hand Smoke Exposure: No Advance Directives Date on File: 10/01/23 service: No Current occupational status: retired Cognitive needs: No Hearing needs: No Vision needs: No Review of Systems Const All systems reviewed & are unremarkable except as noted in HPI and below Physical Exam Const General: no acute distress, alert and awake Orientation/consciousness: patient oriented x3 HEENT Head: Yes normocephalic and Yes atraumatic Eyes EOM: EOMs intact bilaterally Resp Effort & Inspection: normal respiratory effort and able to speak in complete sentences Cardio Jugular venous distension: no JVD Skin General skin exam: turgor normal Rashes: no rashes Neuro General: patient oriented x3 Extrem Other: medial ttp left knee 5-115 deg motion mild effusion Psych Appearance: grossly normal Affect: normal affect Attitude: cooperative Office Procedures Joint Injection/Drain Joint Injection/Drain Details: Injected 1 mL of Decadron and 3 mL 1% lidocaine and 3 mL of 0.25% Marcaine. Si te was prepped using aseptic technique. Patient tolerated the procedure well. Primary Site: left knee Approach Used: anterolateral Coding - Large joint Procedure code (CPT) selection complete Results Reviewed Results Reviewed: I personally reviewed relevant radiographs Mild degenerative changes are present in the hip Chondrocalcinosis. Mild osteoarthritis of left knee Assessment & Plan Assessment & Plan (1) Bilateral primary osteoarthritis of knee: Code(s): M17.0 - Bilateral primary osteoarthritis of knee Plan: I injected her left knee today. She has leftk nee oA. SHe is not a surgical candidate. (2) Type 2 diabetes mellitus with morbid obesity: Code(s): E11.69 - Type 2 diabetes mellitus with other specified complication; E66.01 - Morbid (severe) obesity due to excess calories Plan: Warned of hyperglycemic effects of steroids Plan Scribed for Brandon Jauregui MD by Zeyad Gimenez, medical technologist blood bank, on 11/06/23 at 10:40 AM, EST. Coding Level of Care Code Est Pt Level 3 (80606) Diagnoses Bilateral primary osteoarthritis of knee M17.0 Type 2 diabetes mellitus with morbid obesity E11.69; E66.01 CPT Codes Coding - Large joint: 92792 - Large joint ([id number])
== END 2023-11-06 11:14 | disposition home or self-care (01) ==
PROVIDERS: PCP Internal Medicine; Visit Provider Orthopaedic Surgery
DX: M17.0 Bilateral primary osteoarthritis of knee (principal); E11.69 Type 2 diabetes mellitus with other specified complication; E66.01 Morbid (severe) obesity due to excess calories
CPT/HCPCS: 20610; 99213

== ENCOUNTER → 2023-11-06 10:25 | Outpatient (BNVA) | payer MEDICARE, SELFPAY | PROVIDERS: PCP Internal Medicine; Visit Provider Orthopaedic Surgery | DX: M17.0 Bilateral primary osteoarthritis of knee (principal); E11.69 Type 2 diabetes mellitus with other specified complication; E66.01 Morbid (severe) obesity due to excess calories | CPT/HCPCS: 20610; 99212; J0665; J1100 ==

== ENCOUNTER 2023-11-10 10:47 | Outpatient (AMB) | payer MEDICARE, SELFPAY ==
[2023-11-10 10:58] VITALS: BP 150/65; PULSE 67; BMI 31.6
--- NOTE | 2023-11-10 10:58 | A.OFFVIS_ITS ---
Intake Vital Signs 11/10/23 10:58 Height 5 ft 4 in Weight 184 lb BMI 31.6 BP 150/65 H Blood Pressure Location Rt brachial Position Sitting Pulse 67 Intake Visit Reasons: s/p I&D subcutaneous abscess of mid-back Intake Note: Patient here for s/p I&D abscess on mid back. Much improved with Cephalexin course. Patient c/o: itch at incision site. Cutlet Maker Pork Required: No Accompanied by: daughter Letty Allergies acetaminophen [Percocet] Allergy (Unknown, Verified 11/10/23 10:59) Stomach upset amoxicillin [Augmentin] Allergy (Unknown, Verified 11/10/23 10:59) hives clavulanic acid [Augmentin] Allergy (Unknown, Verified 11/10/23 10:59) hives furosemide Allergy (Unknown, Verified 11/10/23 10:59) unknown latex [LATEX] Allergy (Unknown, Verified 11/10/23 10:59) UNKNOWN lisinopril Allergy (Unknown, Verified 11/10/23 10:59) Unknown oxycodone [Percocet] Allergy (Unknown, Verified 11/10/23 10:59) Stomach upset tramadol Allergy (Unknown, Verified 11/10/23 10:59) Stomach uspet HPI HPI Comments History of Present Illness Details Patient presents with her daughter. She has no wound issues status post I&D of mid back sebaceous cyst abscess. [facility] Medical History Hypothyroidism Obesity Type 2 diabetes mellitus with morbid obesity Annual physical exam Vitamin D deficiency HLD (hyperlipidemia) T2DM (type 2 diabetes mellitus) Diabetes mellitus Hypertension Surgical History History of surgery History of colonoscopy History of appendectomy History of cholecystectomy S/P JOSIE (total abdominal hysterectomy) Family History Father Diabetes Mother CHF (congestive heart failure) CVD (cardiovascular disease) Brother HIV (human immunodeficiency virus infection) Social History Housing: House Alcohol intake: never Patient Tobacco Use Status: Former Tobacco user Tobacco use type: Cigarette e-Cigarette/Vaping Use: Never Used Second Hand Smoke Exposure: No Advance Directives Date on File: 10/01/23 service: No Current occupational status: retired Cognitive needs: No Hearing needs: No Vision needs: No Physical Exam Vital Signs: Last Vital Signs Pulse 67 11/10/23 10:58 BP 150/65 H 11/10/23 10:58 BMI result Body Mass Index 31.6 Back/Spine/Pelvis Other: Complete healing and resolution of back abscess. Assessment & Plan Assessment & Plan (1) Abscess of skin: Code(s): L02.91 - Cutaneous abscess, unspecified Plan Because of the significant size of this original abscess, I discussed with the patient considering excision of this process. She wishes to do so but after the holidays. Arrangements will be made for this. All questions answered. Coding Level of Care Code Global (07386) Diagnoses Abscess of skin L02.91
== END 2023-11-10 11:15 | disposition home or self-care (01) ==
PROVIDERS: PCP Internal Medicine; Visit Provider Surgery
DX: L02.91 Cutaneous abscess, unspecified (principal)
CPT/HCPCS: 99024

== ENCOUNTER → 2023-11-10 10:47 | Outpatient (BNVA) | payer MEDICARE, SELFPAY | PROVIDERS: PCP Internal Medicine; Visit Provider Surgery | DX: L02.91 Cutaneous abscess, unspecified (principal) | CPT/HCPCS: 99212 ==

== ENCOUNTER 2023-12-11 12:49 | Inpatient (IN) | payer MEDICARE, SELFPAY ==
--- NOTE | ~2023-12-11 | MR_ITS ---
EXAMINATION: MR BRAIN WITHOUT CONTRAST CLINICAL INFORMATION: Left-sided weakness, evaluate for stroke COMPARISON: CT head and CT angiogram of the head and neck 12/11/2023, MR brain 05/08/2020 TECHNIQUE: MRI of the brain was obtained using routine sequences without contrast. FINDINGS: Small cortical area of restricted diffusion along the right precentral gyrus. Susceptibility weighted sequence is within normal limits. No midline shift or downward herniation. Generalized cerebral volume loss with associated ventricular and sulcal prominence. Periventricular and subcortical T2/FLAIR hyperintense foci are nonspecific but likely represent chronic microvascular ischemic change. Diminutive inferior basilar artery with partially visualized persistent trigeminal artery. Polypoid mucosal thickening throughout the paranasal sinuses. The mastoid air cells are well-aerated. Bilateral intraocular lens replacements. No focal expansile/destructive osseous lesion. 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 Moderate chronic microvascular ischemic change with moderate generalized cerebral volume loss. Persistent right trigeminal artery.
--- NOTE | ~2023-12-11 | XR_ITS ---
EXAMINATION: XR RIBS, LEFT CLINICAL INFORMATION: Left-sided back pain, status post fall at home. COMPARISON: None available. TECHNIQUE: 3 views of the left ribs were obtained. Chest PA 1 view FINDINGS: Chest: The lungs are well-expanded and clear of acute pneumonic process. Heart size and pulmonary vascularity is normal. There is mild dorsal spine spondylosis. Left RIBS: Multiple views of left ribs reveal no visible rib fracture or bony abnormality. XR/XR ribs LT min 3V w CXR1V IMPRESSION: Unremarkable examination.
--- NOTE | ~2023-12-11 | CT_ITS ---
EXAMINATION: CTA HEAD AND NECK WITH CONTRAST (STROKE) CLINICAL INFORMATION: Suspect acute stroke. Assess for major vessel occlusion. Please call report. COMPARISON: None available. TECHNIQUE: CTA of the head and neck was performed in the axial plane from the mediastinum to the skull vertex using 70 mL Omnipaque 350 intravenous contrast. Additional reformatted multiplanar images including maximum intensity projection MIP images are generated on the CT workstation. This CT examination was performed using dose optimization techniques as appropriate, variously including the following: *Automated exposure control *Adjustment of mA and/or kV according to patient size (this includes techniques or standardized protocols for targeted exams where dose is matched to indication/reason for exam; i.e. extremities or head) *Use of iterative reconstruction technique DLP: 1442 mGy-cm FINDINGS: Motion artifact is present. The degree of stenosis determined by criteria similar to NASCET. CTA NECK: Four-vessel aortic arch, normal variant. Atherosclerotic calcifications at the origins of the innominate and bilateral subclavian arteries without significant stenosis. The origins of the common carotid arteries are patent bilaterally. There is suggestion of noncalcified atherosclerotic plaque involving a short segment of the mid common carotid artery on the left causing 50% stenosis. The remainder of the common carotid arteries are patent bilaterally. The common carotid artery bifurcations demonstrate mural calcifications extending into the proximal segments of the cervical internal carotid arteries, without significant stenosis. The remaining segments of the cervical internal carotid arteries are patent bilaterally. The origins and cervical segments of the vertebral arteries are patent bilaterally. No hemodynamically significant stenosis, dissection, or aneurysm. The visualized branches of the external carotid arteries are patent bilaterally. CTA HEAD: Mild atherosclerotic calcifications of the carotid siphons. Anterior circulation: The petrous, cavernous, and supraclinoid segments of the internal carotid arteries are patent bilaterally. The major branches of the anterior and middle cerebral arteries, as well as the anterior communicating artery complex, are patent. No large vessel occlusion, saccular aneurysm, dissection. Posterior circulation: The right intracranial vertebral artery appears to terminate at the right PICA, normal variant. The left intracranial vertebral artery is hypoplastic; however, remains patent. Right persistent trigeminal artery. The posterior cerebral and superior cerebellar arteries arise normally from the basilar summit. No aneurysm. On delayed imaging, the venous structures demonstrate normal contrast opacification. No filling defect. No abnormal intraparenchymal enhancement. Soft tissues: No suspicious neck mass or cervical adenopathy. Lungs: Emphysematous changes in the lung apices. Bones: No acute osseous abnormality. No lytic or blastic osseous lesions. Multilevel degenerative changes of the visualized spine. CT/CT angio head neck stroke IMPRESSION: Within the limitations of this study, -CTA head demonstrates no large vessel occlusion, saccular aneurysm, or dissection. Incidentally noted right persistent trigeminal artery, normal variant. -CTA neck demonstrates no hemodynamically significant stenosis, dissection, or aneurysm. There is suggestion of noncalcified atherosclerotic plaque causing approximately 50% short segment stenosis of the left mid common carotid artery. The above findings were communicated to Karmen Nicolas MD at 2:07pm
--- NOTE | ~2023-12-11 | CT_ITS ---
EXAMINATION: CT HEAD WITHOUT CONTRAST (STROKE PROTOCOL) CLINICAL INFORMATION: Stroke protocol. Left arm weakness COMPARISON: Brain MRI from 05/08/2020 TECHNIQUE: Contiguous axial imaging was performed from the skull base to vertex without intravenous administration of contrast. This CT examination was performed using dose optimization techniques as appropriate, variously including the following: *Automated exposure control *Adjustment of mA and/or kV according to patient size (this includes techniques or standardized protocols for targeted exams where dose is matched to indication/reason for exam; i.e. extremities or head) *Use of iterative reconstruction technique DLP: 990 mGy-cm FINDINGS: There is no evidence of acute intracranial hemorrhage masses or mass effect. Ventricles and sulci prominent due to global volume loss in the patchy periventricular white matter changes as a sequela of microangiopathy. Osseous structures are unremarkable. Visualized paranasal sinuses revealed fluid in both maxillary sinuses and mastoids are well aerated. CT/CT head for stroke IMPRESSION: No acute intracranial pathology. Sequela of microangiopathy and global volume loss. Sinuses disease This critical result was discussed with Dr. Nicolas at 1318 hours on 12/11/2023. It was ascertained that the content and urgency of the report was understood at the time of direct communication.
--- NOTE | 2023-12-11 12:55 | ECG_ITS ---
Test Reason : STROKE SYMPTOMS Blood Pressure : / mmHG Vent. Rate : 060 BPM Atrial Rate : 060 BPM P-R Int : 200 ms QRS Dur : 090 ms QT Int : 448 ms P-R-T Axes : 017 -24 124 degrees QTc Int : 448 ms Normal sinus rhythm ST & T wave abnormality, consider lateral ischemia Abnormal ECG When compared with ECG of 15-DEC-2017 10:32, No significant changes seen Referred By: Karmen Nicolas Electronically Signed By:DANNY JACINTO
[2023-12-11 13:00] LABS: Prothrombin Time Whole Bld POC 12.3 sec (11.1-13.5)
--- NOTE | 2023-12-11 13:04 | ED_ITS ---
HPI - Neuro Symptoms/Deficit General Chief Complaint: Neuro Symptoms/Deficit Stated Complaint: STROKE ALERT,LT ARM NUMBNESS,LKW 1100 Source: patient and old records reviewed Mode of arrival: EMS History of Present Illness HPI Narrative: 77 yo female with PMH of DM, HLD, HTN states she fell on Thursday mechanical injuring back and L arm today at around 11am she went to open the door with her left hand it was numb and weak. She notes no prior hx of stroke, afib, not on thinners. She did not hit her head or have LOC Onset (ago): hour(s) (11am) Timing confirmed by: other (self) Location: left arm and left leg History of same: No Severity: mild Quality: weak and numb Relieving factors: none Exacerbating factors: none Context: sudden onset and recent fall On Anticoagulants: No Associated symptoms: denies other symptoms Treatments Prior to Arrival: none Related Data Home Medications Medication Instructions Recorded Confirmed diclofenac sodium 1 % topical gel 2 g topical BID PRN arthritis 10/11/23 12/11/23 rosuvastatin 20 mg tablet 10 mg PO Q2D 10/11/23 12/11/23 ezetimibe 10 mg tablet 10 mg PO BEDTIME 12/11/23 12/11/23 metformin 1,000 mg tablet 1,000 mg PO BIDWM 12/11/23 12/11/23 Previous Rx's Medication Instructions Recorded blood-glucose meter (FreeStyle #1 ea 01/10/21 Lite Meter kit) losartan 25 mg tablet 25 mg PO DAILY 30 days #90 tabs 01/09/23 liraglutide 0.6 mg/0.1 mL (18 mg/3 1.2 mg (0.2 mL) subcut DAILY 30 02/04/23 mL) subcutaneous pen injector days #6 mL blood sugar diagnostic #100 ea 06/04/23 levothyroxine 112 mcg capsule 112 mcg PO DAILY #90 caps 08/23/23 lorazepam 1 mg tablet 1 mg PO TID PRN anxiety #60 tabs 08/28/23 gabapentin 100 mg capsule 300 mg (3 x 100 mg) PO BEDTIME #90 09/15/23 caps insulin lispro 100 unit/mL 1 sliding scale dose subcut TIDAC 10/30/23 subcutaneous pen (Humalog KwikPen #15 mL (U-100) Insulin) pen needle, diabetic 32 gauge x #100 ea 12/14/23 1/4 (Novofine 32) Allergies Allergy/AdvReac Type Severity Reaction Status Date / Time acetaminophen [Percocet] Allergy Unknown Stomach Verified 12/11/23 13:11 upset amoxicillin [Augmentin] Allergy Unknown hives Verified 12/11/23 13:11 clavulanic acid [Augmentin] Allergy Unknown hives Verified 12/11/23 13:11 furosemide Allergy Unknown unknown Verified 12/11/23 13:11 latex [LATEX] Allergy Unknown UNKNOWN Verified 12/11/23 13:11 lisinopril Allergy Unknown Unknown Verified 12/11/23 13:11 oxycodone [Percocet] Allergy Unknown Stomach Verified 12/11/23 13:11 upset tramadol Allergy Unknown Stomach Verified 12/11/23 13:11 uspet Review of Systems 2 Review of Systems: Constitutional : No Fever, No Chills, No Fatigue ENT/Mouth : No sore throat, No Rhinorrhea Eyes: No Eye Pain, No Swelling, No Redness Cardiovascular : No Chest Pain, No SOB, No Dyspnea on Exertion Respiratory : No Cough, No Sputum Gastrointestinal : No Nausea, No Vomiting, No Diarrhea, No abdominal Pain Genitourinary : No Dysuria, No Urinary Frequency, No Hematuria, Musculoskeletal : No joint pain, No Myalgias, No Joint Swelling Skin : No Skin Lesions, No rash Neuro : pos Weakness, pos Numbness, No Dizziness, no Headache Psych : No Anxiety/Panic, No Depression All other systems reviewed and are negative PMFSH Past Medical History Attestation statement: The following information was validated with the patient. Source: old records reviewed Onset Date is defined in the Problem List Problems that require an onset date and time if occurred within 24 hrs of arrival to the ED Aortic Dissection and Rupture; Neurologic impairment; Cardiopulmonary Arrest; Endotracheal Intubation; Insertion or Replacement of Mechanical Circulatory Assist Device Medical History Hypothyroidism Obesity Type 2 diabetes mellitus with morbid obesity Annual physical exam Vitamin D deficiency HLD (hyperlipidemia) T2DM (type 2 diabetes mellitus) Diabetes mellitus Hypertension Surgical History History of surgery History of colonoscopy History of appendectomy History of cholecystectomy S/P JOSIE (total abdominal hysterectomy) Family History Family History Father Diabetes Mother CHF (congestive heart failure) CVD (cardiovascular disease) Brother HIV (human immunodeficiency virus infection) Social History Social History Housing: House Alcohol intake: never Patient Tobacco Use Status: Former Tobacco user Tobacco use type: Cigarette Smoked in Last 30 Days: No e-Cigarette/Vaping Use: Never Used Second Hand Smoke Exposure: No Use of substances other than those prescribed or required for medical reasons: No Advance Directives: Yes Advance Directives on File: Yes Advance Directives Date on File: 10/01/23 service: No Current occupational status: retired Cognitive needs: No Hearing needs: No Vision needs: No Physical Exam 2 Vital Signs: Vital Signs: Last Vital Signs Temp 98.4 F 12/11/23 16:05 Pulse 60 12/11/23 16:05 Resp 14 12/11/23 16:05 BP 127/50 L 12/11/23 16:05 Pulse Ox 97 12/11/23 16:05 O2 Del Method Room Air 12/11/23 16:05 BMI result Body Mass Index 35.7 Appearance: Alert. Oriented X3. No acute distress. Eyes: Pupils equal, round and reactive to light. ENT: Pharynx normal. Neck: Normal inspection. Neck supple. CVS: Normal heart rate and rhythm. Pulses normal. Respiratory: No respiratory distress. Breath sounds normal. Abdomen: Soft and nontender. Skin: Skin warm and dry. Normal skin color. Normal skin turgor. Extremities: No lower extremity edema. No calf ttp Neuro: Oriented X 3. L arm good grasp, bicep intact but drift present and cannot hold the arm up at shoulder. states the hand is numb and tingling 2+ radial pulse, left leg poor effort but slightly decreased 4+/5 Course Course Course Narrative: now left leg seems improved, good grasp but will not raise at shoulder biceps intact had neurology at bedside hold TNK symptoms inconsistent and fluctuating. 120pm Reevaluation(s) Reevaluation #1: per Dr. Marroquin A routine MRI of brain without contrast can help to define her diagnosis. Otherwise I recommend treating her with anti-platelet agent, blood pressure control and statin. Reevaluation #2: symptoms of flu diarrhea and URI since Thursday not in window for tamiflu Medications Administered Discontinued Medications Generic Name Dose Route Start Last Admin Trade Name Lillian PRN Reason Stop Dose Admin Aspirin 325 mg 12/11/23 14:31 12/11/23 14:57 Aspirin 81 Mg Tab.Chew PO 12/11/23 14:32 325 mg ONCE ONE Administration Iohexol 70 ml 12/11/23 13:31 12/11/23 13:31 Iohexol 350 Mg/Ml 100 Ml Infus..Btl IV 12/11/23 13:32 70 ml ONCE ONE Administration Medical Decision Making Medical Decision Making MDM Narrative: 77 yo female with PMH of DM, HLD, HTN with L arm weakness and numbness that is fluctuating and changing during exam at this time will put through stroke protocol and consult neurology could also be injury from recent fall. symptoms are fluctuating and mild and NIH now 1 that score is not debilitating - not a candidate for TNK after neurology evaluation Differential Diagnosis Differential Diagnoses: The differential diagnosis associated with the presentation includes injury, TIA, stroke Admission/Observation Consideration of admission/observation: Escalation of care including admission/observation considered admit for MRI Consult Healthcare Provider Management of the patient was discussed with: Hospitalist (will admit) and Cycle Repairer (Dr. Marroquin has seen patient) Lab Data [facility] Lab Attestation statement: I reviewed the patient's lab results. 12/11/23 14:08 12/11/23 14:08 Labs: Lab Results 12/11/23 12/11/23 12/11/23 Range/Units 12:54 12:55 14:08 WBC 6.3 (4.8-10.8) X10*3/uL RBC 4.19 L (4.20-5.50) X10*6/uL Hgb 10.8 L (12.0-16.0) g/dl Hct 34.8 L (37.0-47.0) % MCV 83.1 (80.0-98.0) fL MCH 25.8 L (27.0-33.0) pg MCHC 31.0 (31.0-35.0) g/dl RDW 16.0 (11.0-16.0) % Plt Count 164 D (160-400) X10*3/uL MPV 10.4 (9.4-12.3) fL Immature Gran % (Auto) 0.3 (0.0-0.4) % Neut % (Auto) 63.3 (45-73) % Lymph % (Auto) 28.6 (20-40) % [place] % (Auto) 7.1 (2-11) % Eos % (Auto) 0.5 (0-4) % Baso % (Auto) 0.2 (0-2) % Lymph # (Auto) 1.8 (1.2-4.9) X10*3/uL [place] # (Auto) 0.5 (0.1-1.2) X10*3/uL Eos # (Auto) 0.0 (0.0-0.4) X10*3/uL Baso # (Auto) 0.0 (0.0-0.2) X10*3/uL Abs Immat Gran (auto) 0.02 (0.00-0.03) X10*3/uL Absolute Neuts (auto) 4.0 (2.0-8.3) x10*3/uL Absolute Nucleated RBC 0.000 (0.0-0.012) X10*3/uL Nucleated RBC % (auto) 0.0 (0.0-0.2) /100WBC PT 11.2 (11.1-13.3) SEC Whole Blood PT 12.3 (11.1-13.5) sec INR 0.9 (0.9-1.1) Whole Blood INR 1.0 (0.9-1.1) Sodium 141 (135-145) mmol/L Potassium 4.2 (3.3-5.1) mmol/L Chloride 105 (96-108) mmol/L Carbon Dioxide 27 (22-29) mmol/L Anion Gap 13 (12-20) BUN 19 H (9-16) mg/dL Creatinine 0.80 (0.5-1.4) mg/dL Estim Creat Clear Calc 58.6 Estimated GFR > 60 POC Glucose 143 H (60-115) mg/dL Random Glucose 80 (60-115) mg/dL Estimat Average Glucose 134 mg/dL Hemoglobin A1c % 6.3 H (<6.0) % Calcium 9.4 (8.4-10.2) mg/dL Magnesium 1.7 (1.6-2.6) mg/dL Total Bilirubin 0.3 (0.0-1.0) mg/dL Direct Bilirubin 0.1 (0.0-0.5) mg/dL AST 20 (5-31) U/L ALT 18 (0-31) U/L Alkaline Phosphatase 53 (39-117) U/L Troponin I High Sens 12.3 (<3.5-17.0) ng/L Total Protein 6.3 L (6.5-8.0) g/dL Albumin 3.5 (3.5-5.0) g/dL Triglycerides 175 H (<150) mg/dL Cholesterol 160 (<200) mg/dL LDL Cholesterol, Calc 76 (<100) mg/dL HDL Cholesterol 49 (>40) mg/dL COVID-19 ([facility]) Negative (Negative) COVID-19 Clin Com See Note Influenza Type A ([facility]) (Negative) Influenza Type B ([facility]) (Negative) Influenza A & B Note Blood Type A Positive Antibody Screen POSITIVE Antibody Identification Anti-K Crossmatch (AHG) See Detail 12/11/23 Range/Units 14:50 WBC (4.8-10.8) X10*3/uL RBC (4.20-5.50) X10*6/uL Hgb (12.0-16.0) g/dl Hct (37.0-47.0) % MCV (80.0-98.0) fL MCH (27.0-33.0) pg MCHC (31.0-35.0) g/dl RDW (11.0-16.0) % Plt Count (160-400) X10*3/uL MPV (9.4-12.3) fL Immature Gran % (Auto) (0.0-0.4) % Neut % (Auto) (45-73) % Lymph % (Auto) (20-40) % [place] % (Auto) (2-11) % Eos % (Auto) (0-4) % Baso % (Auto) (0-2) % Lymph # (Auto) (1.2-4.9) X10*3/uL [place] # (Auto) (0.1-1.2) X10*3/uL Eos # (Auto) (0.0-0.4) X10*3/uL Baso # (Auto) (0.0-0.2) X10*3/uL Abs Immat Gran (auto) (0.00-0.03) X10*3/uL Absolute Neuts (auto) (2.0-8.3) x10*3/uL Absolute Nucleated RBC (0.0-0.012) X10*3/uL Nucleated RBC % (auto) (0.0-0.2) /100WBC PT (11.1-13.3) SEC Whole Blood PT (11.1-13.5) sec INR (0.9-1.1) Whole Blood INR (0.9-1.1) Sodium (135-145) mmol/L Potassium (3.3-5.1) mmol/L Chloride (96-108) mmol/L Carbon Dioxide (22-29) mmol/L Anion Gap (12-20) BUN (9-16) mg/dL Creatinine (0.5-1.4) mg/dL Estim Creat Clear Calc Estimated GFR POC Glucose (60-115) mg/dL Random Glucose (60-115) mg/dL Estimat Average Glucose mg/dL Hemoglobin A1c % (<6.0) % Calcium (8.4-10.2) mg/dL Magnesium (1.6-2.6) mg/dL Total Bilirubin (0.0-1.0) mg/dL Direct Bilirubin (0.0-0.5) mg/dL AST (5-31) U/L ALT (0-31) U/L Alkaline Phosphatase (39-117) U/L Troponin I High Sens (<3.5-17.0) ng/L Total Protein (6.5-8.0) g/dL Albumin (3.5-5.0) g/dL Triglycerides (<150) mg/dL Cholesterol (<200) mg/dL LDL Cholesterol, Calc (<100) mg/dL HDL Cholesterol (>40) mg/dL COVID-19 ([facility]) (Negative) COVID-19 Clin Com Influenza Type A ([facility]) Positive A (Negative) Influenza Type B ([facility]) Negative (Negative) Influenza A & B Note See Note Blood Type Antibody Screen Antibody Identification Crossmatch (AHG) Independent Interpretation I performed an independent interpretation of an: EKG and CT Scan Interpretation: Rate: 60 Rhythm: NSR [place]: left Normal P waves. Normal ULICES. Normal QRS complex. ST T wave : inverted t waves I and aVL, V2 no YSABEL qTC: 448 prior studies: more pronounced T wave in V2 The study has been interpreted contemporaneously by me. . Radiology Impression Discussion of test interpretation with radiology: I have reviewed the radiologist's reading. Independent Historian Clinical information obtained from an independent historian. History obtained from or confirmed by: EMS and Other (family) External Record Review External record reviewed: Inpatient record NIH Stroke Scale Internal: Initial- Upon Arrival Time: 12:52 Level of Consciousness: Alert Level of Consciousness Questions: Answers both questions correctly Level of Consciousness Commands: Performs both tasks correctly Best Gaze: Normal Visual: No visual loss Facial Palsy: Normal Motor Arm (Right): No drift Motor Arm (Left): Some effort against gravity Motor Leg (Right): Drift Motor Leg (Left): No drift Limb Ataxia: Absent Sensory: Normal Best Language: No aphasia Dysarthia: Normal Extinction and Inattention: No abnormality Score: 3 Critical Care Time Critical Care Time Critical Care Time: Yes Total Critical Care Time: 45 Attestation: neurology consult, stroke protocol, admission I attest to this time spent taking care of the patient Discharge Plan Discharge Clinical Impression: Left arm weakness, Influenza A Patient Disposition: Admitted As Inpatient
[2023-12-11 13:07] LABS: Glucose, Whole Blood 143 mg/dL (60-115)
[2023-12-11 13:08] VITALS: BP 132/68; BP 149/74; PULSE 65; PULSE 67; RESP 20; TEMP 36.9; O2SAT 98; O2SAT 99; BMI 35.7
--- NOTE | 2023-12-11 13:29 | PC.NURSE ---
Stroke Alert called for patient. Upon arrival to ED, patient evaluated by Dr. Nicolas and went directly to CT scan. Symptoms seemed to be atypical and different depending on who she is speaking with. (Reported to MD that her left arm wouldn't work however lifted her arm for the nurse to put a blood pressure cuff on) Pt reports that she hasn't felt well . States that she took a fall on Thursday and hit my ribs on the left . Denies any head strike or LOC with the fall. Reports today around 11am she went to open her front door and when she turned around to walk back her left arm wouldn't work . Pt states I felt dizzy so I went and sat down on the couch . Upon assessment, pt lying on CT table, tearful. Pt awake, alert and oriented x 3. Skin warm and dry. Resp even, easy, unlabored. Pt can speak to events over the past couple of days. No facial droop noted, tongue midline. Hand grasp slightly weaker on the left but patient is able to follow commands. Equal, bilateral lower leg strength. Neurologist to CT scan for evaluation at our request. CT head and CTA ordered. Provider and neurologist discussed case and it was decided to hold TNK at this time. Primary RN updated. Pt/family updated.
[2023-12-11] MEDS: iohexoL 350 MG/ML 100 ML INFUS..BTL 70 ML IV (13:31)
[2023-12-11 13:44] VITALS: BP 120/55; PULSE 58; RESP 16; TEMP 37.1; O2SAT 95
[2023-12-11 14:17] LABS: MANUAL DIFF FLAG NO
[2023-12-11 14:20] LABS: Basophils Percent Auto 0.2 % (0-2); Eosinophils Percent Auto 0.5 % (0-4); Hematocrit 34.8 % (37.0-47.0); Hemoglobin 10.8 g/dl (12.0-16.0); Imm Gran Abs Auto 0.02 X10*3/uL (0.00-0.03); Imm Gran Pct Auto 0.3 % (0.0-0.4); Lymphocytes Absolute Auto 1.8 X10*3/uL (1.2-4.9); Lymphocytes Percent Auto 28.6 % (20-40); Mean Corpuscular Hemoglobin 25.8 pg (27.0-33.0); Mean Corpuscular Volume 83.1 fL (80.0-98.0); Mean Platelet Volume 10.4 fL (9.4-12.3); Monocytes Absolute Auto 0.5 X10*3/uL (0.1-1.2); Monocytes Percent Auto 7.1 % (2-11); Neutrophils Percent Auto 63.3 % (45-73); Platelet Count 164 X10*3/uL (160-400); Red Blood Count 4.19 X10*6/uL (4.20-5.50); White Blood Count 6.3 X10*3/uL (4.8-10.8)
--- NOTE | 2023-12-11 14:20 | P.CNNE_ITS ---
History of Present Illness Data of Consult Service Date: 12/11/23 Primary Care Provider: Allen Cortés MD [facility] Reason for consult: Possible stroke 77 years old woman with hypertension and diabetes came to hospital with new onset of left-sided weakness. I was asked to see her in emergency room for possible stroke. She was in CT scan when I examine her. She was tearful and anxious but able to follow commands. Review of Systems 2 Review of Systems: No recent cold or flu-like illness or trauma she was complaining of headache. [facility] Past Medical History Medical History Hypothyroidism Obesity Type 2 diabetes mellitus with morbid obesity Annual physical exam Vitamin D deficiency HLD (hyperlipidemia) T2DM (type 2 diabetes mellitus) Diabetes mellitus Hypertension Family History Family History Father Diabetes Mother CHF (congestive heart failure) CVD (cardiovascular disease) Brother HIV (human immunodeficiency virus infection) Surgical History Surgical History History of surgery History of colonoscopy History of appendectomy History of cholecystectomy S/P JOSIE (total abdominal hysterectomy) Social History Social History Housing: House Alcohol intake: never Patient Tobacco Use Status: Former Tobacco user Tobacco use type: Cigarette Smoked in Last 30 Days: No e-Cigarette/Vaping Use: Never Used Second Hand Smoke Exposure: No Use of substances other than those prescribed or required for medical reasons: No Advance Directives: Yes Advance Directives on File: Yes Advance Directives Date on File: 10/01/23 service: No Current occupational status: retired Cognitive needs: No Hearing needs: No Vision needs: No Meds Allergies Allergy/AdvReac Type Severity Reaction Status Date / Time acetaminophen [Percocet] Allergy Unknown Stomach Verified 12/11/23 13:11 upset amoxicillin [Augmentin] Allergy Unknown hives Verified 12/11/23 13:11 clavulanic acid [Augmentin] Allergy Unknown hives Verified 12/11/23 13:11 furosemide Allergy Unknown unknown Verified 12/11/23 13:11 latex [LATEX] Allergy Unknown UNKNOWN Verified 12/11/23 13:11 lisinopril Allergy Unknown Unknown Verified 12/11/23 13:11 oxycodone [Percocet] Allergy Unknown Stomach Verified 12/11/23 13:11 upset tramadol Allergy Unknown Stomach Verified 12/11/23 13:11 uspet Home Medications Medication Instructions Recorded Confirmed Last Taken Type cyanocobalamin (vitamin B-12) 1,000 mcg PO DAILY 10/11/23 11/03/23 10/10/23 History 1,000 mcg tablet diclofenac sodium 1 % topical gel 2 g topical BID PRN arthritis 10/11/23 11/03/23 10/10/23 History rosuvastatin 20 mg tablet 20 mg PO BEDTIME 10/11/23 11/03/23 10/10/23 History Physical Exam 2 Vital Signs: Vital Signs: Last Vital Signs Temp 98.7 F 12/11/23 13:44 Pulse 58 12/11/23 13:44 Resp 16 12/11/23 13:44 BP 120/55 L 12/11/23 13:44 Pulse Ox 95 12/11/23 13:44 O2 Del Method Room Air 12/11/23 13:44 BMI result Body Mass Index 35.7 Neuro: Other: She is alert and awake with normal spontaneity of speech fluency comprehension and depressed affect. Face is symmetrical. Visual mcqueen are full. There is no obvious pupillary abnormality. When I asked to lift her left arm up she barely moved her fingers. When I lifted up and kept at at 90 degrees she was able to hold it there. When I asked her to pressed down it seem to fall down like in a giveaway type of pattern. She was moving her feet. Deep tendon reflexes are absent. And was limited as she was on CT table Results Labs 12/11/23 14:08 12/11/23 14:08 Labs: Head CT revealed moderately severe diffuse cerebral atrophy and [id number] chronic microvascular ischemic changes. CTA did not reveal any obvious middle cerebral artery lesion. Dolichoectasia of basilar artery was noted and atherosclerotic calcified changes were noted at origin of left ICA. Assessment and Plan (1) Left-sided weakness: Status: Acute 77 years old woman with underlying hypertension and diabetes with complain of left arm weakness. Examination revealed possible mild left-sided weakness but it was not consistent. She was also complaining of headache. Head CT did not reveal any obvious acute lesion and CTA did not reveal any large vessel disease. Because of relatively mild nature of symptoms and questionable exam, I do not recommend treating her with the thrombolytics. A routine MRI of brain without contrast can help to define her diagnosis. Otherwise I recommend treating her with anti-platelet agent, blood pressure control and statin. Procedures Date of Service Date of Service: 12/11/23
[2023-12-11 14:25] LABS: INTERNATIONAL NORM RATIO 0.9 (0.9-1.1); Prothrombin Time 11.2 SEC (11.1-13.3)
[2023-12-11 14:28] LABS: Estimated Average Glucose 134 mg/dL; Hemoglobin A1c % 6.3 % (<6.0)
[2023-12-11 14:31] LABS: COVID-19 Test Negative (Negative); IDNOW Serial# 08D9AD1C
[2023-12-11 14:38] LABS: Alanine Aminotransferase 18 U/L (0-31); Albumin Level 3.5 g/dL (3.5-5.0); Alkaline Phosphatase 53 U/L (39-117); Anion Gap 13 (12-20); Aspartate Amino Transferase 20 U/L (5-31); Bilirubin Direct 0.1 mg/dL (0.0-0.5); Bilirubin Total 0.3 mg/dL (0.0-1.0); Blood Urea Nitrogen 19 mg/dL (9-16); Calcium 9.4 mg/dL (8.4-10.2); Carbon Dioxide 27 mmol/L (22-29); Chloride 105 mmol/L (96-108); Cholesterol 160 mg/dL (<200); Creatinine Clr Calc Pharmacy 58.6; Estimated Glomerular Filt Rate > 60; Glucose Random 80 mg/dL (60-115); HDL Cholesterol 49 mg/dL (>40); LDL Cholesterol Calculated 76 mg/dL (<100); Magnesium 1.7 mg/dL (1.6-2.6); Potassium 4.2 mmol/L (3.3-5.1); Sodium 141 mmol/L (135-145); Total Protein 6.3 g/dL (6.5-8.0); Triglycerides 175 mg/dL (<150)
[2023-12-11 14:44] LABS: Troponin-I High Sensitivity 12.3 ng/L (<3.5-17.0)
[2023-12-11] MEDS: Aspirin 81 MG TAB.CHEW 325 MG PO (14:57)
--- NOTE | 2023-12-11 14:58 | PC.NURSE ---
vss and up to date, nsr on the cafeteria monitor. medication administered per provider order. family remains bedside at this time. no deficits noted at this time. respirations remain even and unlabored. call lerma placed within reach.
[2023-12-11 14:59] VITALS: BP 136/59; PULSE 62; RESP 16; O2SAT 98
[2023-12-11 15:24] LABS: IDNOW Serial# 9DB6401D; Influenza A Positive (Negative); Influenza B2 Negative (Negative)
--- NOTE | 2023-12-11 15:53 | PHA.MEDREC ---
Pharmacy Consult ? Medication Reconciliation Pharmacy has completed the medication reconciliation. Patients daughter had a list at bedside
[2023-12-11 16:05] VITALS: BP 127/50; PULSE 60; RESP 14; TEMP 36.9; O2SAT 97
--- NOTE | 2023-12-11 16:27 | P.HPHOSP_ITS ---
History of Present Illness Date of Service: 12/11/23 Attending physician on admission: Bernard Chinchilla Chief Complaint: Left-sided arm weakness Pt is a 77-year-old female with a PMH significant for?insulin-dependent diabetes type 2, HLD, HTN, and hypothyroidism who presents to the ED for evaluation left arm numbness and weakness since this morning. Patient states she went to open a door with her left hand and found that it was numb and weak at around 11:00 this morning. Patient has chronic left leg weakness she says is at baseline. Denies sudden headache or change in vision. No dysarthria, difficulty word finding, or facial droop. Denies previous history of stroke or any known heart arrhythmias. Patient notes 3 days prior on Thursday she was standing up and taking off her shoes when she lost her balance and fell backwards, hitting the left side of her mid back on the package bottles. Patient has been experiencing left-sided mid back pain since then, especially with deep breathing. No loss of consciousness, no head strike. Denies lightheadedness or dizziness. Patient also reports she had flu-like symptoms 5 days ago starting on last Thursday. Patient initially thought she had a cold. Had fever, mostly nonproductive cough, and felt generally weak. Currently denies chest pain/pressure, palpitations. No fever, chills, nausea, vomiting, abdominal pain. Patient was seen by Neurology who did not recommend treating her with thrombolytics due to the relatively mild nature of symptoms and questionable exam. Suggested getting a routine MRI of the brain without contrast and treating her with antiplatelet agent, BP control, and statin In the ED pt was pt's BP was mostly soft, vitals otherwise WNL. Labs were significant for testing positive for flu, H&H 10.8/34.8, and slightly elevated triglycerides at 175, otherwise grossly unremarkable. Cholesterol WNL. No leukocytosis. No electrolyte abnormalities. Renal and hepatic function baseline. CT?of head found no acute intracranial pathology, though did show sequelae microangiopathy and global volume loss. Head and neck CTA negative for large vessel occlusion, saccular aneurysm, or dissection. Also did not find any hemodynamically significant stenosis, dissection, or aneurysm in the neck. There is a suggestion of noncalcified atherosclerotic plaque causing approximately 50% short segment stenosis of the left mid common carotid artery. EKG demonstrated normal sinus rhythm with T-wave inversions in leads 1, aVL, and V2. Pt was treated with aspirin. Pt will be admitted to the hospital under observation for further workup and evaluation of possible TIA versus stroke. Review of Systems 2 Review of Systems: Left arm numbness and weakness Left mid-back pain s/p fall at home Mostly nonproductive cough Myalgias Fever, resolved Headache PMFSH Medical History Hypothyroidism Obesity Type 2 diabetes mellitus with morbid obesity Annual physical exam Vitamin D deficiency HLD (hyperlipidemia) T2DM (type 2 diabetes mellitus) Diabetes mellitus Hypertension Family History Father Diabetes Mother CHF (congestive heart failure) CVD (cardiovascular disease) Brother HIV (human immunodeficiency virus infection) Surgical History History of surgery History of colonoscopy History of appendectomy History of cholecystectomy S/P JOSIE (total abdominal hysterectomy) Social History Housing: House Alcohol intake: never Patient Tobacco Use Status: Former Tobacco user Tobacco use type: Cigarette Smoked in Last 30 Days: No e-Cigarette/Vaping Use: Never Used Second Hand Smoke Exposure: No Use of substances other than those prescribed or required for medical reasons: No Advance Directives: Yes Advance Directives on File: Yes Advance Directives Date on File: 10/01/23 service: No Current occupational status: retired Cognitive needs: No Hearing needs: No Vision needs: No Meds Allergies Allergy/AdvReac Type Severity Reaction Status Date / Time acetaminophen [Percocet] Allergy Unknown Stomach Verified 12/11/23 13:11 upset amoxicillin [Augmentin] Allergy Unknown hives Verified 12/11/23 13:11 clavulanic acid [Augmentin] Allergy Unknown hives Verified 12/11/23 13:11 furosemide Allergy Unknown unknown Verified 12/11/23 13:11 latex [LATEX] Allergy Unknown UNKNOWN Verified 12/11/23 13:11 lisinopril Allergy Unknown Unknown Verified 12/11/23 13:11 oxycodone [Percocet] Allergy Unknown Stomach Verified 12/11/23 13:11 upset tramadol Allergy Unknown Stomach Verified 12/11/23 13:11 uspet Home Medications Medication Instructions Recorded Confirmed Last Taken Type diclofenac sodium 1 % topical gel 2 g topical BID PRN arthritis 10/11/23 12/11/23 10/10/23 History rosuvastatin 20 mg tablet 10 mg PO Q2D 10/11/23 12/11/23 10/10/23 History ezetimibe 10 mg tablet 10 mg PO BEDTIME 12/11/23 12/11/23 Unknown History metformin 1,000 mg tablet 1,000 mg PO BIDWM 12/11/23 12/11/23 Unknown History Physical Exam 2 Vital Signs and Narrative: Vital Signs: Last Vital Signs Temp 98.4 F 12/11/23 16:05 Pulse 60 12/11/23 16:05 Resp 14 12/11/23 16:05 BP 127/50 L 12/11/23 16:05 Pulse Ox 97 12/11/23 16:05 O2 Del Method Room Air 12/11/23 16:05 BMI result Body Mass Index 35.7 Constitutional: Alert, in no acute distress. Mental Status: Oriented to person, place and time. Eyes: Pupils are equal, round, and reactive to light. Ear, Nose, and Throat: Oropharynx clear, mucous membranes moist. Ears and nose without deformities. Trachea midline. Respiratory: Clear to auscultation bilaterally. No wheezing, rales, or rhonchi. Cardiovascular: S1, S2 regular. No murmurs, rubs, or gallops. Gastrointestinal: Abdomen soft, non-tender, non-distended. Normal bowel sounds. Neurologic: Diminished strength 1/5 of upper left extremity. 3/5 strength of lower left extremity. Diminished sensation to light touch of left side of face, arm, leg. Skin: Warm, dry. Musculoskeletal/Back: Tenderness to palpation of left-side of back around 8-10th ribs. No sign of ecchymosis. No spinous or paraspinous process tenderness. Extremities: No edema. Psychiatric: Normal mood and affect. Results Labs 12/11/23 14:08 12/11/23 14:08 Labs: Laboratory Results - last 24 hr 12/11/23 12/11/23 12/11/23 12:54 12:55 14:08 MCV 83.1 MCH 25.8 L MCHC 31.0 RDW 16.0 Plt Count 164 D MPV 10.4 Immature Gran % (Auto) 0.3 Neut % (Auto) 63.3 Lymph % (Auto) 28.6 Webb % (Auto) 7.1 Eos % (Auto) 0.5 Baso % (Auto) 0.2 Lymph # (Auto) 1.8 Webb # (Auto) 0.5 Eos # (Auto) 0.0 Baso # (Auto) 0.0 Abs Immat Gran (auto) 0.02 Absolute Neuts (auto) 4.0 Absolute Nucleated RBC 0.000 Nucleated RBC % (auto) 0.0 PT 11.2 Whole Blood PT 12.3 INR 0.9 Whole Blood INR 1.0 Anion Gap 13 Estim Creat Clear Calc 58.6 Estimated GFR > 60 POC Glucose 143 H Random Glucose 80 Estimat Average Glucose 134 Hemoglobin A1c % 6.3 H Calcium 9.4 Magnesium 1.7 Total Bilirubin 0.3 Direct Bilirubin 0.1 AST 20 ALT 18 Alkaline Phosphatase 53 Total Protein 6.3 L Albumin 3.5 Triglycerides 175 H Cholesterol 160 LDL Cholesterol, Calc 76 HDL Cholesterol 49 COVID-19 ([facility]) Negative COVID-19 Clin Com See Note Influenza Type A ([facility]) Influenza Type B ([facility]) Influenza A & B Note Blood Type A Positive Antibody Screen POSITIVE Antibody Identification Anti-K Crossmatch ([facility]) See Detail 12/11/23 14:50 MCV MCH MCHC RDW Plt Count MPV Immature Gran % (Auto) Neut % (Auto) Lymph % (Auto) Webb % (Auto) Eos % (Auto) Baso % (Auto) Lymph # (Auto) Webb # (Auto) Eos # (Auto) Baso # (Auto) Abs Immat Gran (auto) Absolute Neuts (auto) Absolute Nucleated RBC Nucleated RBC % (auto) PT Whole Blood PT INR Whole Blood INR Anion Gap Estim Creat Clear Calc Estimated GFR POC Glucose Random Glucose Estimat Average Glucose Hemoglobin A1c % Calcium Magnesium Total Bilirubin Direct Bilirubin AST ALT Alkaline Phosphatase Total Protein Albumin Triglycerides Cholesterol LDL Cholesterol, Calc HDL Cholesterol COVID-19 ([facility]) COVID-19 M Lite Solution Com Influenza Type A ([facility]) Positive A Influenza Type B ([facility]) Negative Influenza A & B Note See Note Blood Type Antibody Screen Antibody Identification Crossmatch ([facility]) Imaging Radiologist's Impressions: Impressions Head CT 12/11/23 13:07 IMPRESSION: No acute intracranial pathology. Sequela of microangiopathy and global volume loss. Sinuses disease This critical result was discussed with Dr. Nicolas at 1318 hours on 12/11/2023. It was ascertained that the content and urgency of the report was understood at the time of direct communication. Head/Neck CTA 12/11/23 13:32 IMPRESSION: Within the limitations of this study, -CTA head demonstrates no large vessel occlusion, saccular aneurysm, or dissection. Incidentally noted right persistent trigeminal artery, normal variant. -CTA neck demonstrates no hemodynamically significant stenosis, dissection, or aneurysm. There is suggestion of noncalcified atherosclerotic plaque causing approximately 50% short segment stenosis of the left mid common carotid artery. The above findings were communicated to Karmen Nicolas MD at 2:07pm Assessment and Plan (1) Left arm weakness: Status: Acute Plan Pt is a 77-year-old female with a PMH significant for?insulin-dependent diabetes type 2, HLD, HTN, and hypothyroidism who presents to the ED for evaluation left arm numbness and weakness since this morning. Pt will be admitted to the hospital under observation for further workup and evaluation of possible TIA versus stroke. Left arm numbness and weakness Patient with acute right weakness and numbness, chronic left leg weakness seemingly at baseline Possibly secondary to TIA versus stroke CT negative for acute intracranial pathology CTA of head and neck negative for large vessel disease Will get MRI of head/brain wo contrast Aspirin 81 mg daily Switch to atorvastatin 40 mg daily Lipid profile with mildly elevated triglycerides, otherwise WNL PT/OT and speech evaluation Neurology consult Cardiac diet Monitor on telemetry Influenza Symptoms began 5 days ago on Thursday Patient with continued mostly nonproductive cough Denies SOB, not hypoxic Will treat symptomatically; Tamiflu not indicated DuoNebs p.r.n. Benzonatate for cough Left-sided back pain S/P mechanical fall at home three days prior Will get rib x-rays to evaluate for fracture Analgesics for pain management HTN Will hold losartan for now d/t soft BP and allowing for permissive hypertension Insulin-dependent diabetes type 2 Hold metformin, Trulicity Will place on sliding scale insulin Diabetic diet HLD Hold rosuvastatin 10 mg daily Will start atorvastatin 40 mg daily Continue ezetimibe DNR/DNI Attending:?Dr. Chinchilla DVT Prophylaxis: Lovenox Patient be admitted to the hospital under observation for treatment of left arm weakness and numbness possibly secondary to TIA versus stroke. Patient required additional monitoring and imaging and specialist consultation. Quality Stroke Does the patient have a stroke diagnosis?: No Reason for No Anti-thrombotic by Day Two: Not indicated (Mild, inconsistent symptoms per Neurology) VTE Prior VTE?: No VTE Risk Level:: Medical - moderate - high VTE Device Contraindication: Treatment Not Indicated VTE Drug Contraindication: N/A - Med Ordered
--- NOTE | 2023-12-11 17:57 | MHC.EDTECH ---
Patient given dinner tray
[2023-12-11 18:05] VITALS: BP 136/58; PULSE 63; RESP 16; O2SAT 98
--- NOTE | 2023-12-11 18:13 | PC.NURSE ---
patient a&ox3, vss, pt ate 100% of her dinner, pt c/o lt arm being weaker of her right, neuro currently intact, smile symmetrical, bilateral arms lift/hold no drift noted at this time, pt grasp to LUE mildly weaker than right, BLE equal strength, pt requesting different bed as her back hurts sitting in the stretcher, nuclear monitoring technician intact-sinus jonathan, vss, will continue to monitor
[2023-12-11] MEDS: Enoxaparin Sodium 40 MG/0.4 ML SYRINGE SUBCUT (19:40)
[2023-12-11 20:00] VITALS: BP 134/62; PULSE 59; RESP 18; TEMP 36.1; O2SAT 94
[2023-12-11 20:20] LABS: Glucose, Whole Blood 146 mg/dL (60-115)
[2023-12-11] MEDS: Gabapentin 300 MG CAPSULE PO (21:41)
[2023-12-11] MEDS: Ezetimibe 10 MG TABLET PO (21:42)
[2023-12-11] MEDS: 0.9 % Sodium Chloride Flush 3 ML SYRINGE IVFLUSH (21:42)
[2023-12-11] MEDS: Atorvastatin Calcium 40 MG TABLET PO (21:42)
[2023-12-11 21:44] VITALS: BMI 36.4
[2023-12-11 21:47] LABS: Glucose, Whole Blood 113 mg/dL (60-115)
[2023-12-11] MEDS: Benzonatate 100 MG CAPSULE PO (22:07)
[2023-12-11] MEDS: LORazepam 1 MG TABLET PO (22:38)
--- NOTE | 2023-12-11 22:55 | PM.EVENT ---
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 Also found moderate chronic microvascular ischemic change with moderate generalized cerebral volume loss. We will give 1 dose of Plavix 75 mg p.o., check A1c, and order echocardiogram. Neurology to see in a.m.. Time Spent With Patient Time: Total time managing care of this patient today ____ minutes.
[2023-12-11] MEDS: Clopidogrel Bisulfate 75 MG TABLET PO (23:00)
--- NOTE | 2023-12-11 23:09 | PC.NURSE ---
pt admitted with possible Stroke. 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 [id number], pt states that left side weakness and numbness is improving. pt AOx4. 1 assist with walker to BR or bedside commode. telemonitor shows 60s with SR. when she came up from MRI rechecked POC 113, Vs are in normal limits.?neuro is intact, but pt still feels numbness and weakness on left side without drift. provided all meds per eMAR and all admission assessment is done. informed to Oneyda Jesus; stroke nurse. will continue to monitor
[2023-12-12 03:18] VITALS: BP 145/66; PULSE 56; RESP 18; TEMP 36.6; O2SAT 93
[2023-12-12] MEDS: Levothyroxine Sodium 112 MCG TABLET PO (05:59)
[2023-12-12 06:02] LABS: Estimated Average Glucose 128 mg/dL; Hemoglobin A1c % 6.1 % (<6.0)
[2023-12-12 06:07] LABS: Anion Gap 12 (12-20); Blood Urea Nitrogen 15 mg/dL (9-16); Calcium 8.6 mg/dL (8.4-10.2); Carbon Dioxide 24 mmol/L (22-29); Chloride 109 mmol/L (96-108); Creatinine Clr Calc Pharmacy 70.6; Estimated Glomerular Filt Rate > 60; Glucose Random 112 mg/dL (60-115); Potassium 3.8 mmol/L (3.3-5.1); Sodium 141 mmol/L (135-145)
[2023-12-12 07:56] VITALS: BP 131/60; PULSE 56; RESP 18; TEMP 36.8; O2SAT 92
[2023-12-12 08:11] LABS: Glucose, Whole Blood 105 mg/dL (60-115)
--- NOTE | 2023-12-12 08:41 | P.PNIM_ITS ---
Subjective Subjective Date of Service: 12/12/23 Interval History: improved lue weakness Physical Exam 2 Vital Signs: Vital Signs: Last Vital Signs Temp 98.2 F 12/12/23 07:56 Pulse 56 12/12/23 07:56 Resp 18 12/12/23 07:56 BP 131/60 12/12/23 07:56 Pulse Ox 92 12/12/23 07:56 O2 Del Method Room Air 12/12/23 07:56 BMI result Body Mass Index 36.4 General: AO X 3, no acute distress Resp: CTA bilateral, no accessory muscles used CVS: S1,S2,RRR GI: soft, non tender, non distended Neuro: motor grossly intact, alert Psych: appropriate affect, appropriate insight Objective Data Active Medications Albuterol/Ipratropium (Albuterol/Iprat 2.5/0.5mg 3 Ml Ampul.Neb) 3 ml INHALE RQ4H WHILE AWAKE PRN PRN Reason: Shortness of Breath/Wheezing Aspirin (Aspirin Enteric Coated 81 Mg Tablet.) 81 mg PO DAILY [facility] Atorvastatin Calcium (Atorvastatin Calcium 40 Mg Tablet) 40 mg PO BEDTIME [facility] Last Admin: 12/11/23 21:42 Dose: 40 mg Documented By: BRETT Benzonatate (Benzonatate 100 Mg Capsule) 100 mg PO TID PRN PRN Reason: Cough Last Admin: 12/11/23 22:07 Dose: 100 mg Documented By: BRETT Dextrose (Dextrose 50 % 25 Gm/50 Ml Syringe) 25 gm IVPUSH Q15M PRN; Protocol PRN Reason: per Hypoglycemia Standing Ord. Docusate Sodium (Docusate Sodium 100 Mg Capsule) 100 mg PO DAILY PRN PRN Reason: Constipation Ezetimibe (Ezetimibe 10 Mg Tablet) 10 mg PO BEDTIME [facility] Last Admin: 12/11/23 21:42 Dose: 10 mg Documented By: BRETT Enoxaparin Sodium (Enoxaparin Sodium 40 Mg/0.4 Ml Syringe) 40 mg SUBCUT Q24H [facility] Last Admin: 12/11/23 19:40 Dose: 40 mg Documented By: CRISTIANE Gabapentin (Gabapentin 300 Mg Capsule) 300 mg PO BEDTIME [facility] Last Admin: 12/11/23 21:41 Dose: 300 mg Documented By: BRETT Glucose (Glucose Gel 15 Gm Gel..Gram.) 15 gm PO Q15M PRN; Protocol PRN Reason: per Hypoglycemia Standing Ord. Insulin Human Lispro (Insulin Lispro 100 Unit/Ml 3 Ml Vial) 0 unit SUBCUT QIDACHS [facility]; Protocol Last Admin: 12/12/23 08:14 Dose: Not Given Documented By: SHAGGY Non-Admin Reason: No Insulin Coverage Levothyroxine Sodium (Levothyroxine Sodium 112 Mcg Tablet) 112 mcg PO DAILY@0600 [facility] Last Admin: 12/12/23 05:59 Dose: 112 mcg Documented By: BRETT Lorazepam (Lorazepam 1 Mg Tablet) 1 mg PO TID PRN PRN Reason: anxiety Last Admin: 12/11/23 22:38 Dose: 1 mg Documented By: BRETT Melatonin (Melatonin 3 Mg Tablet) 6 mg PO BEDTIME PRN PRN Reason: Insomnia Ondansetron HCl (Ondansetron Hcl 4 Mg/2 Ml Vial) 4 mg IVPUSH Q8H PRN PRN Reason: Nausea and Vomiting Sodium Chloride (0.9 % Sodium Chloride Flush 3 Ml Syringe) [facility] Last Admin: 12/11/23 21:42 Dose: 3 ml Documented By: BRETT Labs 12/11/23 14:08 12/12/23 05:30 Labs: Laboratory Results - last 24 hr 12/11/23 12/11/23 12/11/23 12:54 12:55 14:08 MCV 83.1 MCH 25.8 L MCHC 31.0 RDW 16.0 Plt Count 164 D MPV 10.4 Immature Gran % (Auto) 0.3 Neut % (Auto) 63.3 Lymph % (Auto) 28.6 [place] % (Auto) 7.1 Eos % (Auto) 0.5 Baso % (Auto) 0.2 Lymph # (Auto) 1.8 [place] # (Auto) 0.5 Eos # (Auto) 0.0 Baso # (Auto) 0.0 Abs Immat Gran (auto) 0.02 Absolute Neuts (auto) 4.0 Absolute Nucleated RBC 0.000 Nucleated RBC % (auto) 0.0 PT 11.2 Whole Blood PT 12.3 INR 0.9 Whole Blood INR 1.0 Anion Gap 13 Estim Creat Clear Calc 58.6 Estimated GFR > 60 POC Glucose 143 H Random Glucose 80 Estimat Average Glucose 134 Hemoglobin A1c % 6.3 H Calcium 9.4 Magnesium 1.7 Total Bilirubin 0.3 Direct Bilirubin 0.1 AST 20 ALT 18 Alkaline Phosphatase 53 Total Protein 6.3 L Albumin 3.5 Triglycerides 175 H Cholesterol 160 LDL Cholesterol, Calc 76 HDL Cholesterol 49 COVID-19 ([facility]) Negative COVID-19 Clin Com See Note Influenza Type A ([facility]) Influenza Type B ([facility]) Influenza A & B Note Blood Type A Positive Antibody Screen POSITIVE Antibody Identification Anti-K Crossmatch ([facility]) See Detail 12/11/23 12/11/23 12/11/23 14:50 20:14 21:44 MCV MCH MCHC RDW Plt Count MPV Immature Gran % (Auto) Neut % (Auto) Lymph % (Auto) [place] % (Auto) Eos % (Auto) Baso % (Auto) Lymph # (Auto) [place] # (Auto) Eos # (Auto) Baso # (Auto) Abs Immat Gran (auto) Absolute Neuts (auto) Absolute Nucleated RBC Nucleated RBC % (auto) PT Whole Blood PT INR Whole Blood INR Anion Gap Estim Creat Clear Calc Estimated GFR POC Glucose 146 H 113 Random Glucose Estimat Average Glucose Hemoglobin A1c % Calcium Magnesium Total Bilirubin Direct Bilirubin AST ALT Alkaline Phosphatase Total Protein Albumin Triglycerides Cholesterol LDL Cholesterol, Calc HDL Cholesterol COVID-19 ([facility]) COVID-19 Clin Com Influenza Type A ([facility]) Positive A Influenza Type B ([facility]) Negative Influenza A & B Note See Note Blood Type Antibody Screen Antibody Identification Crossmatch ([facility]) 12/12/23 12/12/23 05:30 08:01 MCV MCH MCHC RDW Plt Count MPV Immature Gran % (Auto) Neut % (Auto) Lymph % (Auto) [place] % (Auto) Eos % (Auto) Baso % (Auto) Lymph # (Auto) [place] # (Auto) Eos # (Auto) Baso # (Auto) Abs Immat Gran (auto) Absolute Neuts (auto) Absolute Nucleated RBC Nucleated RBC % (auto) PT Whole Blood PT INR Whole Blood INR Anion Gap 12 Estim Creat Clear Calc 70.6 Estimated GFR > 60 POC Glucose 105 Random Glucose 112 Estimat Average Glucose 128 Hemoglobin A1c % 6.1 H Calcium 8.6 D Magnesium Total Bilirubin Direct Bilirubin AST ALT Alkaline Phosphatase Total Protein Albumin Triglycerides Cholesterol LDL Cholesterol, Calc HDL Cholesterol COVID-19 ([facility]) COVID-19 Clin Com Influenza Type A ([facility]) Influenza Type B ([facility]IE) Influenza A & B Note Blood Type Antibody Screen Antibody Identification Crossmatch ([facility]) Assessment and Plan (1) Influenza A: Status: Acute Plan 77F PMH dm, htn, hld, hypothryoid, presented with left arm weakness and numbness, mri positive for cva, flu positive 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
--- NOTE | 2023-12-12 09:21 | MHC.CM.PN ---
IMM DELIVERED. PATIENT IS FROM HOME ALONE, BUT HAS STRONG FAMILY SUPPORT TO PROVIDE ASSISTANCE W/ ADL'S PRN. AMBULATES W/ A CANE, USES A WALKER PRN. WAS PREVIOUSLY ACTIVE W/ [facility], BUT NO SERVICES AT THIS TIME. IN SEPTEMBER WENT TO STR [facility], DOES NOT WISH TO RETURN TO FACILITY. PCP: RUSTY ROBLEDO MD HCP: GRANDDAUGHTER FELIPE. ON FILE AND VERIFIED. DP: PT REC STR. CHOICES ARE 1) [facility] 2) [facility] 3) [facility]. REFERRALS SENT VIA [facility]. CM WILL CONTINUE TO FOLLOW FOR DC NEEDS.
[2023-12-12 10:14] VITALS: PULSE 77; O2SAT 96
[2023-12-12] MEDS: Aspirin Enteric Coated 81 MG TABLET.DR PO (10:14)
[2023-12-12 11:26] LABS: Glucose, Whole Blood 171 mg/dL (60-115)
[2023-12-12] MEDS: Insulin Lispro 100 UNIT/ML 3 ML VIAL SUBCUT ×2 (12:18→21:24)
[2023-12-12 15:44] VITALS: BP 168/75; PULSE 64; RESP 20; TEMP 37.3; O2SAT 94
[2023-12-12 16:15] LABS: Glucose, Whole Blood 133 mg/dL (60-115)
[2023-12-12] MEDS: Enoxaparin Sodium 40 MG/0.4 ML SYRINGE SUBCUT (17:37)
[2023-12-12] MEDS: Benzonatate 100 MG CAPSULE PO (18:30)
[2023-12-12] MEDS: ondansetron HCL 4 MG/2 ML VIAL IVPUSH (18:30)
[2023-12-12 20:00] VITALS: BP 139/64; PULSE 67; RESP 18; TEMP 36.6; O2SAT 92
[2023-12-12 21:12] LABS: Glucose, Whole Blood 188 mg/dL (60-115)
[2023-12-12] MEDS: Gabapentin 300 MG CAPSULE PO (21:24)
[2023-12-12] MEDS: Atorvastatin Calcium 40 MG TABLET PO (21:24)
[2023-12-12] MEDS: Ezetimibe 10 MG TABLET PO (21:24)
[2023-12-12] MEDS: LORazepam 1 MG TABLET PO (21:24)
[2023-12-12] MEDS: 0.9 % Sodium Chloride Flush 3 ML SYRINGE IVFLUSH (21:25)
[2023-12-13 03:14] VITALS: BP 162/79; PULSE 59; RESP 18; TEMP 36.3; O2SAT 94
[2023-12-13] MEDS: Levothyroxine Sodium 112 MCG TABLET PO (06:06)
[2023-12-13 07:57] LABS: Glucose, Whole Blood 120 mg/dL (60-115)
[2023-12-13 08:00] VITALS: BP 134/63; PULSE 64; RESP 20; TEMP 36.6; O2SAT 95
[2023-12-13] MEDS: 0.9 % Sodium Chloride Flush 3 ML SYRINGE IVFLUSH ×2 (08:48→23:59)
[2023-12-13] MEDS: Aspirin Enteric Coated 81 MG TABLET.DR PO (08:48)
--- NOTE | 2023-12-13 09:08 | P.PNIM_ITS ---
Subjective Subjective Date of Service: 12/13/23 Interval History: improved lue weakness Physical Exam 2 Vital Signs: Vital Signs: Last Vital Signs Temp 98 F 12/13/23 08:00 Pulse 64 12/13/23 08:00 Resp 20 12/13/23 08:00 BP 134/63 12/13/23 08:00 Pulse Ox 95 12/13/23 08:00 O2 Del Method Room Air 12/13/23 08:00 BMI result Body Mass Index 36.4 General: AO X 3, no acute distress Resp: CTA bilateral, no accessory muscles used CVS: S1,S2,RRR GI: soft, non tender, non distended Neuro: motor grossly intact, alert Psych: appropriate affect, appropriate insight Objective Data Active Medications Albuterol/Ipratropium (Albuterol/Iprat 2.5/0.5mg 3 Ml Ampul.Neb) 3 ml INHALE RQ4H WHILE AWAKE PRN PRN Reason: Shortness of Breath/Wheezing Aspirin (Aspirin Enteric Coated 81 Mg Tablet.) 81 mg PO DAILY [facility] Last Admin: 12/13/23 08:48 Dose: 81 mg Documented By: SHAGGY Atorvastatin Calcium (Atorvastatin Calcium 40 Mg Tablet) 40 mg PO BEDTIME [facility] Last Admin: 12/12/23 21:24 Dose: 40 mg Documented By: BRETT Benzonatate (Benzonatate 100 Mg Capsule) 100 mg PO TID PRN PRN Reason: Cough Last Admin: 12/12/23 18:30 Dose: 100 mg Documented By: MARQUEZ Dextrose (Dextrose 50 % 25 Gm/50 Ml Syringe) 25 gm IVPUSH Q15M PRN; Protocol PRN Reason: per Hypoglycemia Standing Ord. Docusate Sodium (Docusate Sodium 100 Mg Capsule) 100 mg PO DAILY PRN PRN Reason: Constipation Ezetimibe (Ezetimibe 10 Mg Tablet) 10 mg PO BEDTIME [facility] Last Admin: 12/12/23 21:24 Dose: 10 mg Documented By: BRETT Enoxaparin Sodium (Enoxaparin Sodium 40 Mg/0.4 Ml Syringe) 40 mg SUBCUT Q24H [facility] Last Admin: 12/12/23 17:37 Dose: 40 mg Documented By: SHAGGY Gabapentin (Gabapentin 300 Mg Capsule) 300 mg PO BEDTIME [facility] Last Admin: 12/12/23 21:24 Dose: 300 mg Documented By: BRETT Glucose (Glucose Gel 15 Gm Gel..Gram.) 15 gm PO Q15M PRN; Protocol PRN Reason: per Hypoglycemia Standing Ord. Insulin Human Lispro (Insulin Lispro 100 Unit/Ml 3 Ml Vial) 0 unit SUBCUT QIDACHS [facility]; Protocol Last Admin: 12/13/23 07:59 Dose: Not Given Documented By: SHAGGY Non-Admin Reason: No Insulin Coverage Levothyroxine Sodium (Levothyroxine Sodium 112 Mcg Tablet) 112 mcg PO DAILY@0600 [facility] Last Admin: 12/13/23 06:06 Dose: 112 mcg Documented By: BRETT Lorazepam (Lorazepam 1 Mg Tablet) 1 mg PO TID PRN PRN Reason: anxiety Last Admin: 12/12/23 21:24 Dose: 1 mg Documented By: BRETT Melatonin (Melatonin 3 Mg Tablet) 6 mg PO BEDTIME PRN PRN Reason: Insomnia Ondansetron HCl (Ondansetron Hcl 4 Mg/2 Ml Vial) 4 mg IVPUSH Q8H PRN PRN Reason: Nausea and Vomiting Last Admin: 12/12/23 18:30 Dose: 4 mg Documented By: MARQUEZ Sodium Chloride (0.9 % Sodium Chloride Flush 3 Ml Syringe) [facility] Last Admin: 12/13/23 08:48 Dose: 3 ml Documented By: SHAGGY Labs 12/11/23 14:08 12/12/23 05:30 Labs: Laboratory Results - last 24 hr 12/12/23 12/12/23 12/12/23 11:20 16:00 21:00 POC Glucose 171 H 133 H 188 H 12/13/23 07:53 POC Glucose 120 H Assessment and Plan (1) Influenza A: Status: Acute Plan 77F PMH dm, htn, hld, hypothryoid, presented with left arm weakness and numbness, mri positive for cva, flu positive 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, statin, pt/ot recommending str, patient would prefer home concern for possible cardioembolic - plan for ouptatient monitor flu symptomatic management DM insulin htn holding meds for permissive htn hypothyroid synthroid hld statin dvt prophylaxis - lovenox full code reason for continued hospitalization: feeling unwell, monitoring for arrythmia Quality Stroke Does the patient have a stroke diagnosis?: No Reason for No Anti-thrombotic by Day Two: Not indicated (Mild, inconsistent symptoms per Neurology) VTE Prior VTE?: No VTE Risk Level:: Medical - moderate - high VTE Device Contraindication: Treatment Not Indicated VTE Drug Contraindication: N/A - Med Ordered
[2023-12-13 11:08] LABS: Glucose, Whole Blood 232 mg/dL (60-115)
--- NOTE | 2023-12-13 11:33 | MHC.CM.PN ---
CM met with patient and family to discuss dc plan. Patient initially not agreeable to rehab, but after discussion agrees with plan. [facility] has offered a bed for 12/14 and patient has accepted. Auth pending. MD and RN aware of plan.
[2023-12-13] MEDS: Insulin Lispro 100 UNIT/ML 3 ML VIAL SUBCUT ×2 (11:50→21:35)
[2023-12-13 15:19] VITALS: BP 165/69; PULSE 56; RESP 20; TEMP 36.2; O2SAT 95
[2023-12-13] MEDS: Acetaminophen 325 MG TABLET 650 MG PO (16:07)
[2023-12-13 16:10] LABS: Glucose, Whole Blood 136 mg/dL (60-115)
--- NOTE | 2023-12-13 16:23 | PC.RT ---
Pt awake and coop, request prn svn. Spo2 96%, LS clr/dim. Pt c/o coughing and pain associated. Pt has no hx bronchodilator, decided not to take svn at this time. RN aware.
[2023-12-13] MEDS: Enoxaparin Sodium 40 MG/0.4 ML SYRINGE SUBCUT (18:50)
[2023-12-13 20:00] VITALS: BP 148/72; PULSE 63; RESP 18; TEMP 37.1; O2SAT 96
[2023-12-13 20:32] LABS: Glucose, Whole Blood 178 mg/dL (60-115)
[2023-12-13] MEDS: Atorvastatin Calcium 40 MG TABLET PO (21:36)
[2023-12-13] MEDS: Gabapentin 300 MG CAPSULE PO (21:36)
[2023-12-13] MEDS: Ezetimibe 10 MG TABLET PO (21:36)
[2023-12-13] MEDS: Benzonatate 100 MG CAPSULE PO (22:04)
[2023-12-14 03:39] VITALS: BP 133/60; PULSE 55; RESP 18; TEMP 37; O2SAT 95
[2023-12-14] MEDS: Levothyroxine Sodium 112 MCG TABLET PO (05:47)
[2023-12-14 06:28] LABS: Anion Gap 13 (12-20); Blood Urea Nitrogen 15 mg/dL (9-16); Calcium 8.6 mg/dL (8.4-10.2); Carbon Dioxide 28 mmol/L (22-29); Chloride 106 mmol/L (96-108); Creatinine Clr Calc Pharmacy 62.9; Estimated Glomerular Filt Rate > 60; Glucose Fasting 122 mg/dL (60-99); Potassium 3.8 mmol/L (3.3-5.1); Sodium 143 mmol/L (135-145)
[2023-12-14 06:53] LABS: Hematocrit 34.5 % (37.0-47.0); Hemoglobin 10.8 g/dl (12.0-16.0); Mean Corpuscular HGB Conc 31.3 g/dl (31.0-35.0); Mean Corpuscular Hemoglobin 25.9 pg (27.0-33.0); Mean Corpuscular Volume 82.7 fL (80.0-98.0); Mean Platelet Volume 11.7 fL (9.4-12.3); Platelet Count 174 X10*3/uL (160-400); Red Blood Count 4.17 X10*6/uL (4.20-5.50); Red Cell Distribution Width 15.4 % (11.0-16.0); White Blood Count 6.2 X10*3/uL (4.8-10.8)
[2023-12-14 07:31] VITALS: BP 142/62; PULSE 65; RESP 18; TEMP 36.4; O2SAT 94
[2023-12-14 07:42] LABS: Glucose, Whole Blood 159 mg/dL (60-115)
[2023-12-14] MEDS: Insulin Lispro 100 UNIT/ML 3 ML VIAL SUBCUT ×2 (08:24→11:51)
[2023-12-14] MEDS: Aspirin Enteric Coated 81 MG TABLET.DR PO (08:24)
[2023-12-14] MEDS: 0.9 % Sodium Chloride Flush 3 ML SYRINGE IVFLUSH (08:24)
--- NOTE | 2023-12-14 08:38 | P.DS_ITS ---
DS: Providers Provider Date of Service: 12/14/23 Date of admission: 12/11/23 17:54 Primary care physician: Allen Cortés MD Consults: 12/11/23 13:43 Consult to Neurology Stat Consulting Provider: [facility] Reason for consultation: stroke alert, left sided weakness Has provider been notified: Yes DS: Diagnosis Discharge Diagnosis (1) Influenza A: Status: Acute DS: Summary Hospital Course Hospital Course: from initial hpi: 77-year-old female with a PMH significant for?insulin-dependent diabetes type 2, HLD, HTN, and hypothyroidism who presents to the ED for evaluation left arm numbness and weakness since this morning. Patient states she went to open a door with her left hand and found that it was numb and weak at around 11:00 this morning. Patient has chronic left leg weakness she says is at baseline. Denies sudden headache or change in vision. No dysarthria, difficulty word finding, or facial droop. Denies previous history of stroke or any known heart arrhythmias. Patient notes 3 days prior on Thursday afternoon she was standing up and taking off her shoes when she lost her balance and fell backwards, hitting the left side of her mid back on the package bottles. Patient has been experiencing left-sided mid back pain since then, especially with deep breathing. No loss of consciousness, no head strike. Denies lightheadedness or dizziness. Patient also reports she had flu-like symptoms 5 days ago starting on last Thursday. Patient initially thought she had a cold. Had fever, mostly nonproductive cough, and felt generally weak. Currently denies chest pain/pressure, palpitations. No fever, chills, nausea, vomiting, abdominal pain. Patient was seen by Neurology who did not recommend treating her with thrombolytics due to the relatively mild nature of symptoms and questionable exam. Suggested getting a routine MRI of the brain without contrast and treating her with antiplatelet agent, BP control, and statin In the ED pt was pt's BP was mostly soft, vitals otherwise WNL. Labs were significant for testing positive for flu, H&H 10.8/34.8, and slightly elevated triglycerides at 175, otherwise grossly unremarkable. Cholesterol WNL. No leukocytosis. No electrolyte abnormalities. Renal and hepatic function baseline. CT?of head found no acute intracranial pathology, though did show sequelae microangiopathy and global volume loss. Head and neck CTA negative for large vessel occlusion, saccular aneurysm, or dissection. Also did not find any hemodynamically significant stenosis, dissection, or aneurysm in the neck. There is a suggestion of noncalcified atherosclerotic plaque causing approximately 50% short segment stenosis of the left mid common carotid artery. EKG demonstrated normal sinus rhythm with T-wave inversions in leads 1, aVL, and V2. Pt was treated with aspirin. Pt will be admitted to the hospital under observation for further workup and evaluation of possible TIA versus stroke. hospital course: Patient was admitted for acute right cortical infarction along right precentral gyrus. She was treated with aspirin statin. Was seen by PT who recommended short-term rehab to which patient will be discharged. She was seen by Neurology who felt there was concern for possible cardioembolic etiology. She should follow up with Cardiology as outpatient to arrange for monitor. Patient was recovering from flu and received symptomatic management only. For diabetes was continue insulin. For hypertension meds were held for permissive hypertension can be restarted on discharge. For hypothyroidism was continued on Synthroid. For hyperlipidemia was continue on statin. Time Attestation Discharge coordination time: Greater than 30 minutes Quality: Safe Use of Opioids Does Pt have an Active Cancer Diagnosis on the Problem List?: No Quality: Stroke Does the patient have a stroke diagnosis?: Yes Reason for No Anti-thrombotic at DC: N/A - Med Ordered Reason for No Anticoagulant at DC: Drug treatment not indicated Reason Not Initiating IV-Tpa: Drug treatment not indicated Reason for No Anti-thrombotic by Day Two: N/A - Med Ordered Reason for No Statin at DC: N/A - Med Ordered Physical Exam Vital Signs: Vital Signs: Last Vital Signs Temp 97.5 F 12/14/23 07:31 Pulse 65 12/14/23 07:31 Resp 18 12/14/23 07:31 BP 142/62 H 12/14/23 07:31 Pulse Ox 94 12/14/23 07:31 O2 Del Method Room Air 12/14/23 07:31 BMI result Body Mass Index 36.4 General: AO X 3, no acute distress Resp: CTA bilateral, no accessory muscles used CVS: S1,S2,RRR GI: soft, non tender, non distended Neuro: motor grossly intact, alert Psych: appropriate affect, appropriate insight DS: Data Data Completed and Pending Labs on day of discharge: Laboratory Results - last 24 hr 12/13/23 12/13/23 12/13/23 10:56 16:05 19:59 WBC RBC Hgb Hct MCV MCH MCHC RDW Plt Count MPV Absolute Nucleated RBC Nucleated RBC % (auto) Sodium Potassium Chloride Carbon Dioxide Anion Gap BUN Creatinine Estim Creat Clear Calc Estimated GFR POC Glucose 232 H 136 H 178 H Fasting Glucose Calcium 12/14/23 12/14/23 05:41 07:37 WBC 6.2 RBC 4.17 L Hgb 10.8 L Hct 34.5 L MCV 82.7 MCH 25.9 L MCHC 31.3 RDW 15.4 Plt Count 174 MPV 11.7 Absolute Nucleated RBC 0.000 Nucleated RBC % (auto) 0.0 Sodium 143 Potassium 3.8 Chloride 106 Carbon Dioxide 28 Anion Gap 13 BUN 15 Creatinine 0.74 Estim Creat Clear Calc 62.9 Estimated GFR > 60 POC Glucose 159 H Fasting Glucose 122 H Calcium 8.6 Discharge Plan Discharge Anticipated Discharge Date/Time: 12/14/23 08:22 Patient Disposition: Xfer [facility] Discharge Diagnosis: cva, flu Referrals: Allen Cortés MD [Primary Care Provider] - 1 Week Discharge Medications: New atorvastatin 40 mg Tablet 40 mg PO BEDTIME Qty: 0 0RF aspirin 81 mg Tablet,Delayed Release (Dr/Ec) 81 mg PO DAILY Qty: 30 0RF Continued liraglutide 0.6 mg/0.1 mL (18 mg/3 mL) pen injector 1.2 mg subcut DAILY 30 Days Qty: 6 11RF (DME) blood sugar diagnostic Strip See Rx Instructions .ROUTE .MEDSUPPLY Qty: 100 11RF Rx Instructions: FREESTYLE LITE TEST STRIPS TO CHECK THREE TIMES A DAY levothyroxine 112 mcg capsule 112 mcg PO DAILY Qty: 90 6RF gabapentin 100 mg capsule 300 mg PO BEDTIME Qty: 90 5RF (DME) pen needle, diabetic [Novofine 32] 32 gauge x 1/4 needle See Rx Instructions .Route Qty: 100 0RF Rx Instructions: As directed up to three times per day diclofenac sodium 1 % gel 2 g topical BID PRN (Reason: arthritis) Rx Instructions: apply to single elbow, wrist or hand; for hand includes palm/fingers/back of hand metformin 1,000 mg tablet 1,000 mg PO BIDWM ezetimibe 10 mg tablet 10 mg PO BEDTIME insulin lispro [Humalog KwikPen Insulin] 100 unit/mL insulin pen 1 sliding scale dose subcut TIDAC Qty: 15 0RF Rx Instructions: 10-12 UNITS SS PER PATIENT losartan 25 mg tablet 25 mg PO DAILY 30 Days Qty: 90 8RF lorazepam 1 mg tablet 1 mg PO TID PRN (Reason: anxiety) Qty: 60 3RF (DME) blood-glucose meter [FreeStyle Lite Meter] Kit See Rx Instructions .ROUTE .MEDSUPPLY Qty: 1 0RF Rx Instructions: As directed Discontinued rosuvastatin 20 mg tablet 10 mg PO Q2D Discharge Orders: Discharge Order (Routine); Ordered 12/14/23 Ordered By: Bernard Chinchilla Diet: Advance to usual diet Activity on Discharge: As tolerated Stand Alone Forms: Patient Portal Discharge page Care Plan Goals: prevent further strokes Health Concerns: stroke Plan of Treatment: aspiring and statin, follow up with cardiology to set up loop recorder vs holter to rule out afib Assessment: see above
[2023-12-14] MEDS: Benzonatate 100 MG CAPSULE PO (08:53)
--- NOTE | 2023-12-14 09:09 | MHC.CM.PN ---
Addendum entered by Yareli Anguiano 12/14/23 11:32: [facility] HAS OBTAINED AUTH FROM [facility]. RN UPDATED. HCP AT BEDSIDE AND AWARE. BLS TRANSPORT BOOKED FOR 2:30 PM VIA [facility] Original Note: DP: PT HAS BEEN MEDICALLY CLEARED FOR DC TO ACUTE REHAB. [facility] IS STARTING AUTH PROCESS. CM WILL CONTINUE TO AWAIT INSURANCE AUTH FROM [facility].
[2023-12-14 10:25] VITALS: BP 142/62; PULSE 65; O2SAT 94
[2023-12-14 11:35] LABS: Glucose, Whole Blood 211 mg/dL (60-115)
[2023-12-14] MEDS: Acetaminophen 325 MG TABLET 650 MG PO (13:11)
[2023-12-14] MEDS: guaiFENesin DM 100/10/5 ML 5 ML SYRUP PO (13:11)
[2023-12-14 15:31] VITALS: BP 132/60; PULSE 76; RESP 16; TEMP 36.9; O2SAT 94
== END 2023-12-14 16:23 | disposition skilled nursing facility (03) | DRG 65 ==
LOC: HO.ED 14:48 → HO.EDOVER 18:14 → HO.S3 19:14 → HO.EDOVER 12-28 14:38 → HO.S3 12-28 14:38
PROVIDERS: Admitting Provider Student in an Organized Health Care Education/Training Program; Emergency Provider Emergency Medicine; PCP Internal Medicine; Visit Provider Internal Medicine
DX: I63.40 Cerebral infarction due to embolism of unspecified cerebral artery (principal); G81.94 Hemiplegia, unspecified affecting left nondominant side; I10 Essential (primary) hypertension; J10.1 Influenza due to other identified influenza virus with other respiratory manifestations; Z66 Do not resuscitate; R29.703 NIHSS score 3; M54.9 Dorsalgia, unspecified; E11.9 Type 2 diabetes mellitus without complications; W19.XXXA Unspecified fall, initial encounter; I48.91 Unspecified atrial fibrillation; E78.5 Hyperlipidemia, unspecified; E03.9 Hypothyroidism, unspecified; Z20.822 Contact with and (suspected) exposure to COVID-19; Z87.891 Personal history of nicotine dependence; Z91.040 Latex allergy status; Z79.4 Long term (current) use of insulin; Z79.84 Long term (current) use of oral hypoglycemic drugs; Z79.890 Hormone replacement therapy; Z79.899 Other long term (current) drug therapy
CPT/HCPCS: 36415; 70450; 70496; 70498; 70551; 71101; 80048; 80061; 80076; 82947; 83036; 83735; 84484; 85025; 85027; 85610; 86850; 86870; 86900; 86901; 86902; 86920; 86922; 87502; 87635; 93005; 96372; 96374; 97116; 97163; 97166; 99285; J1650; J2405; Q9967

== ENCOUNTER → 2023-12-11 12:55 | Outpatient (BNV) | payer MEDICARE, SELFPAY | PROVIDERS: Admitting Provider Student in an Organized Health Care Education/Training Program; Emergency Provider Emergency Medicine; PCP Internal Medicine; Visit Provider Internal Medicine | DX: R94.31 Abnormal electrocardiogram [ECG] [EKG] (principal) | CPT/HCPCS: 93010 ==

== ENCOUNTER → 2023-12-11 13:40 | Outpatient (BNV) | payer MEDICARE, SELFPAY | PROVIDERS: Emergency Provider Emergency Medicine; PCP Internal Medicine; Visit Provider Psychiatry & Neurology Neurology | DX: R53.1 Weakness (principal) | CPT/HCPCS: 99222 ==

== ENCOUNTER → 2023-12-11 17:54 | Outpatient (BNV) | payer MEDICARE, SELFPAY | PROVIDERS: Admitting Provider Student in an Organized Health Care Education/Training Program; Emergency Provider Emergency Medicine; PCP Internal Medicine; Visit Provider Student in an Organized Health Care Education/Training Program | DX: J10.1 Influenza due to other identified influenza virus with other respiratory manifestations (principal) | CPT/HCPCS: 99222; 99232; 99239; 99499 ==

== ENCOUNTER 2024-01-06 14:32 | Outpatient (AMB) | payer MEDICARE, SELFPAY ==
[2024-01-06 14:35] VITALS: BP 118/62; PULSE 73; O2SAT 98; BMI 34.4
--- NOTE | 2024-01-06 14:35 | MHC.PC.OV ---
Vital Signs 01/06/24 14:35 Height 5 ft 1 in Weight 182 lb BMI 34.4 BP 118/62 Blood Pressure Location Lt brachial Position Sitting Pulse 73 Pulse Source Pulse Oximeter Pulse Oximetry (%) 98 Oxygen Delivery Method Room Air Intake Visit Reasons: HDF [facility]/CVA Warp Dyeing Vat Tender Required: No Bankruptcy Law Specialist: Not Required per policy Accompanied by: Self / Same As Patient Allergies amoxicillin [Augmentin] Allergy (Unknown, Verified 01/06/24 14:36) hives clavulanic acid [Augmentin] Allergy (Unknown, Verified 01/06/24 14:36) hives furosemide Allergy (Unknown, Verified 01/06/24 14:36) unknown latex [LATEX] Allergy (Unknown, Verified 01/06/24 14:36) UNKNOWN lisinopril Allergy (Unknown, Verified 01/06/24 14:36) Unknown oxycodone [Percocet] Allergy (Unknown, Verified 01/06/24 14:36) Stomach upset tramadol Allergy (Unknown, Verified 01/06/24 14:36) Stomach uspet Medication List - Last Reconciled 01/07/24 by Allen Cortés MD amantadine HCl 100 mg PO BID aspirin 81 mg PO DAILY atorvastatin 40 mg PO BEDTIME blood sugar diagnostic FREESTYLE LITE TEST STRIPS TO CHECK THREE TIMES A DAY blood-glucose meter (FreeStyle Lite Meter kit) As directed diclofenac sodium 1% 2 grams topical BID PRN ezetimibe 10 mg PO BEDTIME gabapentin 300 mg (3 x 100 mg) PO BEDTIME insulin lispro (Humalog KwikPen (U-100) Insulin) 1 sliding scale dose subcut TIDAC levothyroxine 112 mcg PO DAILY liraglutide 1.2 mg (0.2 mL) subcut DAILY 30 days lorazepam 1 mg PO TID PRN losartan 25 mg PO DAILY 30 days metformin 1,000 mg PO BIDWM pantoprazole 40 mg PO DAILY pen needle, diabetic (Novofine 32) As directed up to three times per day tramadol 50 mg PO Q6H PRN Tobacco use date assessed: 01/06/24 Fall risk assessment: No Falls in past year Last assessed Fall Risk: 01/06/24 Dental Screening Dental Screen Date: 01/06/24 Did you have a dental visit in the last 12 months?: Yes Did you have a dental problem in the last 6 months where you did not have access to dental care?: No Was dental information given to patient?: Patient has dentist HPI HDF [facility]/CVA HPI Details had a cva; presented with left fcial droop and left arm weakness; all has resolved excepr some residual arm and hand weakness; gettin pt/ot at home PFSH Medical History Hypothyroidism Obesity Type 2 diabetes mellitus with morbid obesity Annual physical exam Vitamin D deficiency HLD (hyperlipidemia) T2DM (type 2 diabetes mellitus) Diabetes mellitus Hypertension Surgical History History of surgery History of colonoscopy History of appendectomy History of cholecystectomy S/P JOSIE (total abdominal hysterectomy) Family History Father Diabetes Mother CHF (congestive heart failure) CVD (cardiovascular disease) Brother HIV (human immunodeficiency virus infection) Social History Household Members: None Housing: House Do you presently have visiting nurse or other home services: No Alcohol intake: never Patient Tobacco Use Status: Former Tobacco user Quit Date: 2013 Tobacco use type: Cigarette Years Smoked: 30 e-Cigarette/Vaping Use: Currently Using Second Hand Smoke Exposure: No Advance Directives Date on File: 10/01/23 service: No Current occupational status: retired Cognitive needs: No Hearing needs: No Vision needs: No Questionnaire PHQ-9 Over the last 2 weeks, how often have you been bothered by any of the following problems? 1. Little interest or pleasure in doing things: not at all 2. Feeling down, depressed, or hopeless: not at all 3. Trouble falling or staying asleep, or sleeping too much: not at all 4. Feeling tired or having little energy: not at all 5. Poor appetite or overeating: not at all 6. Feeling bad about yourself - or that you are a failure or have let yourself or your family down: not at all 7. Trouble concentrating on things, such as reading the newspaper or watching television: not at all 8. Moving or speaking so slowly that other people could have noticed. Or the opposite - being so fidgety or restless that you have been moving around a lot more than usual: not at all 9. Thoughts that you would be better off or of hurting yourself in some way: not at all Total score: 0 Depression Screening Interpretation: Negative Depression Screening Done: Yes Source: Developed by Drs. Mendez Sanz, Shannan Quintanilla, Fuentes Sales and colleagues, with an educational aurelia from [employer]. Thrive Questionnaire Date Thrive assessed: 12/12/23 AUDIT C Alcohol Use Questionnaire (AUDIT-C) 1. How often do you have a drink containing alcohol?: Never Total Score: 0 Score Reviewed/Action Taken: Yes ARSLAN-7 AMB Questionnaire ARSLAN-7 Date ARSLAN - 7 assessed: 01/06/24 Feeling nervous, anxious, or on edge: 0 = Not at all Not being able to stop or control worryin = Not at all Worrying too much about different things: 0 = Not at all Trouble relaxin = Not at all Being so restless that it is hard to sit still: 0 = Not at all Becoming easily annoyed or irritable: 0 = Not at all Feeling afraid as if something awful might happen: 0 = Not at all Total ARSLAN-7 score (0-4 normal; 5-9 mild; 10-14 moderate; 15-21 severe): 0 Source: Developed by Drs. Mendez Sanz, Shannan Quintanilla, Fuentes Sales and colleagues, with an educational aurelia from [employer]. Review of Systems Const Denies chills, Denies headache(s) and Denies weight loss ENT Denies headache(s) Card Denies chest pain, Denies syncope, Denies irregular heart rhythm and Denies dyspnea Resp Denies chest congestion, Denies cough and Denies dyspnea GI Denies abdominal pain, Denies change in stool character, Denies nausea and Denies vomiting Musc Denies deformity and Denies joint swelling Neuro Denies syncope and Denies headache(s) Physical exam (Primary Care) Vital Signs: Last Vital Signs Pulse 73 01/06/24 14:35 BP 118/62 01/06/24 14:35 Pulse Ox 98 01/06/24 14:35 Oxygen Delivery Method Room Air 01/06/24 14:35 BMI result Body Mass Index 34.4 Tobacco/Smoking Status: Tobacco use Status Tobacco use date assessed 01/06/24 01/06/24 14:39 Patient Tobacco Use Status Former Tobacco user 01/06/24 14:39 Tobacco use type Cigarette 01/06/24 14:39 e-Cigarette/Vaping Use Currently Using 01/06/24 14:39 PHQ-9: PHQ-9 Score PHQ-9: Total score 0 01/06/24 14:39 Depression Screening Interpretation: Negative Thrive Assessment: Date of Thrive Assessment Date Thrive assessed 12/12/23 01/06/24 14:39 Const General: cooperative, comfortable, no acute distress and alert Neck Neck: Yes no lymphadenopathy Thyroid: Thyroid normal Resp Effort & Inspection: normal respiratory effort Auscultation: clear to auscultation bilaterally Percussion: percussion normal Cardio Jugular venous distension: no JVD Palpation: normal PMI Rate: regular rate Rhythm: regular rhythm Heart sounds: S1 normal heart sound present and S2 normal heart sound present GI Inspection: Yes normal to inspection Palpation (GI): No hepatosplenomegaly present Skin General skin exam: no rashes or lesions noted Extrem General: Yes no clubbing, cyanosis or edema Assessment and Plan Assessment & Plan (1) CVA (cerebral vascular accident): Code(s): I63.9 - Cerebral infarction, unspecified Plan: cont asa and ot Orders: Orders Lipid Panel 01/06/24 E78.5 - Hyperlipidemia, unspecified Thyroid Stimulating Hormone 01/06/24 E03.9 - Hypothyroidism, unspecified Hemoglobin A1c 01/06/24 R73.9 - Hyperglycemia, unspecified Complete Blood Count Auto Diff 01/06/24 D64.9 - Anemia, unspecified Comprehensive [place]. Panel Fast 01/06/24 N28.9 - Disorder of kidney and ureter, unspecified Coding Level of Care Code Est Pt Level 3 (62159) Diagnoses CVA (cerebral vascular accident) I63.9
== END 2024-01-06 15:13 | disposition home or self-care (01) ==
PROVIDERS: PCP Internal Medicine; Visit Provider Internal Medicine
DX: I69.334 Monoplegia of upper limb following cerebral infarction affecting left non-dominant side (principal)
CPT/HCPCS: 99213

== ENCOUNTER 2024-01-12 11:34 | Outpatient (AMB) | payer MEDICARE, SELFPAY ==
[2024-01-12 11:46] VITALS: BP 172/70; PULSE 84; BMI 34.6
--- NOTE | 2024-01-12 11:46 | A.OFFVIS_ITS ---
Intake Vital Signs 01/12/24 11:46 Height 5 ft 1 in Weight 183 lb BMI 34.6 BP 172/70 H Blood Pressure Location Rt brachial Position Sitting Pulse 84 Intake Visit Reasons: Exc abscess of mid back Intake Note: Patient here for exc of abscess on mid back. Patient c/o: reports cyst healed completely. Denies pain, oozing, itch. Section Cutter Required: No Accompanied by: Daughter Allergies amoxicillin [Augmentin] Allergy (Unknown, Verified 01/12/24 11:47) hives clavulanic acid [Augmentin] Allergy (Unknown, Verified 01/12/24 11:47) hives furosemide Allergy (Unknown, Verified 01/12/24 11:47) unknown latex [LATEX] Allergy (Unknown, Verified 01/12/24 11:47) UNKNOWN lisinopril Allergy (Unknown, Verified 01/12/24 11:47) Unknown oxycodone [Percocet] Allergy (Unknown, Verified 01/12/24 11:47) Stomach upset tramadol Allergy (Unknown, Verified 01/12/24 11:47) Stomach uspet HPI HPI Comments History of Present Illness Details Patient presents with her daughter. She has complete healing of her infected sebaceous cyst of the lower back. Presents here for further evaluation [facility] Medical History Hypothyroidism Obesity Type 2 diabetes mellitus with morbid obesity Annual physical exam Vitamin D deficiency HLD (hyperlipidemia) T2DM (type 2 diabetes mellitus) Diabetes mellitus Hypertension Surgical History History of surgery History of colonoscopy History of appendectomy History of cholecystectomy S/P JOSIE (total abdominal hysterectomy) Family History Father Diabetes Mother CHF (congestive heart failure) CVD (cardiovascular disease) Brother HIV (human immunodeficiency virus infection) Social History Household Members: None Housing: House Do you presently have visiting nurse or other home services: No Alcohol intake: never Patient Tobacco Use Status: Former Tobacco user Quit Date: 2013 Tobacco use type: Cigarette Years Smoked: 30 e-Cigarette/Vaping Use: Currently Using Second Hand Smoke Exposure: No Advance Directives Date on File: 10/01/23 service: No Current occupational status: retired Cognitive needs: No Hearing needs: No Vision needs: No Physical Exam Vital Signs: Last Vital Signs Pulse 84 01/12/24 11:46 BP 172/70 H 01/12/24 11:46 BMI result Body Mass Index 34.6 Back/Spine/Pelvis Other: Lower back demonstrates good complete healing of I&D site from previous infected sebaceous cyst. Assessment & Plan Assessment & Plan (1) Status post incision and drainage: Code(s): Z98.890 - Other specified postprocedural states Plan Present, patient is a proximally 3 weeks status post TIA and has been convalescing from this. At present, no immediate urgency to excise the cyst. We will treat conservatively for now. Should this process recur, they have instructed to call the office and will otherwise Coding Level of Care Code Global (23718) Diagnoses Status post incision and drainage Z98.890
== END 2024-01-12 11:46 | disposition home or self-care (01) ==
PROVIDERS: PCP Internal Medicine; Visit Provider Surgery
DX: Z98.890 Other specified postprocedural states (principal)
CPT/HCPCS: 99024

== ENCOUNTER → 2024-01-12 11:34 | Outpatient (BNVA) | payer MEDICARE, SELFPAY | PROVIDERS: PCP Internal Medicine; Visit Provider Surgery | DX: Z98.890 Other specified postprocedural states (principal); Z87.2 Personal history of diseases of the skin and subcutaneous tissue | CPT/HCPCS: 99212 ==

== ENCOUNTER 2024-01-13 09:31 | Outpatient (REF) | payer MEDICARE, SELFPAY ==
[2024-01-13 10:05] LABS: MANUAL DIFF FLAG NO
[2024-01-13 10:15] LABS: Basophils Absolute Auto 0.1 X10*3/uL (0.0-0.2); Eosinophils Absolute Auto 0.2 X10*3/uL (0.0-0.4); Eosinophils Percent Auto 3.2 % (0-4); Hematocrit 38.3 % (37.0-47.0); Hemoglobin 11.8 g/dl (12.0-16.0); Imm Gran Abs Auto 0.04 X10*3/uL (0.00-0.03); Imm Gran Pct Auto 0.6 % (0.0-0.4); Lymphocytes Absolute Auto 1.8 X10*3/uL (1.2-4.9); Lymphocytes Percent Auto 28.5 % (20-40); Mean Corpuscular HGB Conc 30.8 g/dl (31.0-35.0); Mean Corpuscular Hemoglobin 25.6 pg (27.0-33.0); Mean Corpuscular Volume 83.1 fL (80.0-98.0); Mean Platelet Volume 9.8 fL (9.4-12.3); Monocytes Absolute Auto 0.5 X10*3/uL (0.1-1.2); Monocytes Percent Auto 7.3 % (2-11); Neutrophils Absolute Auto 3.7 x10*3/uL (2.0-8.3); Neutrophils Percent Auto 59.4 % (45-73); Platelet Count 295 X10*3/uL (160-400); Red Blood Count 4.61 X10*6/uL (4.20-5.50); Red Cell Distribution Width 15.9 % (11.0-16.0); White Blood Count 6.3 X10*3/uL (4.8-10.8)
[2024-01-13 10:24] LABS: Estimated Average Glucose 134 mg/dL; Hemoglobin A1c % 6.3 % (<6.0)
[2024-01-13 10:48] LABS: Alanine Aminotransferase 13 U/L (0-31); Albumin Level 3.8 g/dL (3.5-5.0); Alkaline Phosphatase 63 U/L (39-117); Anion Gap 12 (12-20); Aspartate Amino Transferase 17 U/L (5-31); Bilirubin Total 0.4 mg/dL (0.0-1.0); Blood Urea Nitrogen 13 mg/dL (9-16); Calcium 9.5 mg/dL (8.4-10.2); Carbon Dioxide 32 mmol/L (22-29); Chloride 106 mmol/L (96-108); Cholesterol 110 mg/dL (<200); Estimated Glomerular Filt Rate > 60; Glucose Fasting 131 mg/dL (60-99); HDL Cholesterol 43 mg/dL (>40); LDL Cholesterol Calculated 49 mg/dL (<100); Potassium 4.7 mmol/L (3.3-5.1); Sodium 145 mmol/L (135-145); Total Protein 6.9 g/dL (6.5-8.0); Triglycerides 94 mg/dL (<150)
[2024-01-13 11:05] LABS: Thyroid Stimulating Hormone 0.33 uIU/mL (0.32-4.0)
[2024-01-13 12:08] LABS: Creatinine Urine 61.23 mg/dL
== END 2024-01-13 09:32 | disposition home or self-care (01) ==
LOC: HO.LAB 09:31
PROVIDERS: PCP Internal Medicine; Visit Provider Internal Medicine
DX: D64.9 Anemia, unspecified (principal); E11.65 Type 2 diabetes mellitus with hyperglycemia; E66.01 Morbid (severe) obesity due to excess calories; N28.9 Disorder of kidney and ureter, unspecified; E78.5 Hyperlipidemia, unspecified; E03.9 Hypothyroidism, unspecified
CPT/HCPCS: 36415; 80053; 80061; 82043; 82570; 83036; 84443; 85025

== ENCOUNTER 2024-01-14 10:00 | Outpatient (AMB) | payer MEDICARE, SELFPAY ==
[2024-01-14 10:04] VITALS: BMI 34.6
--- NOTE | 2024-01-14 10:04 | MHC.OFFVIS ---
Intake Vital Signs 01/14/24 10:04 Height 5 ft 1 in Weight 183 lb BMI 34.6 Intake Visit Reasons: NewProb- right hip pain Intake Note: Naty is a 78 year old female who presents today with her daughter for a new problem visit with complaints of right hip pain. Patient reports that she has had pain in the right hip for a few months now her pain is felt in the groin and around the hip. She has increased pain with prolonged walking anf sitting, as well as ambulating stairs. She takes tylenol, ibuprofen and tramadol for her pain which is helpful She had a stroke on Dec 11. Allergies amoxicillin [Augmentin] Allergy (Unknown, Verified 01/12/24 11:47) hives clavulanic acid [Augmentin] Allergy (Unknown, Verified 01/12/24 11:47) hives furosemide Allergy (Unknown, Verified 01/12/24 11:47) unknown latex [LATEX] Allergy (Unknown, Verified 01/12/24 11:47) UNKNOWN lisinopril Allergy (Unknown, Verified 01/12/24 11:47) Unknown oxycodone [Percocet] Allergy (Unknown, Verified 01/12/24 11:47) Stomach upset tramadol Allergy (Unknown, Verified 01/12/24 11:47) Stomach uspet HPI NewProb- right hip pain HPI Details Naty is a 78 year old Diabetic woman who returns to discuss her right hip pain. She complains of right hip pain for ~3 months now, which she feels both in the groin and lateral aspect. Her pain is worse with prolonged sitting, walking, and using stairs. She finds some relief from Tylenol, NSAIDs, and Tramadol. She reports having a stroke on 12/11/23. She was last seen on 11/06/23 for left knee OA, and received a steroid injection. She was in a SNF for her recent CVA and has started doing home PT. Her hip and knee pain are not severe at the present time. [facility] Medical History Hypothyroidism Obesity Type 2 diabetes mellitus with morbid obesity Annual physical exam Vitamin D deficiency HLD (hyperlipidemia) T2DM (type 2 diabetes mellitus) Diabetes mellitus Hypertension Surgical History History of surgery History of colonoscopy History of appendectomy History of cholecystectomy S/P JOSIE (total abdominal hysterectomy) Family History Father Diabetes Mother CHF (congestive heart failure) CVD (cardiovascular disease) Brother HIV (human immunodeficiency virus infection) Social History Household Members: None Housing: House Do you presently have visiting nurse or other home services: No Alcohol intake: never Patient Tobacco Use Status: Former Tobacco user Quit Date: 2013 Tobacco use type: Cigarette Years Smoked: 30 e-Cigarette/Vaping Use: Currently Using Second Hand Smoke Exposure: No Advance Directives Date on File: 10/01/23 service: No Current occupational status: retired Cognitive needs: No Hearing needs: No Vision needs: No Review of Systems Const All systems reviewed & are unremarkable except as noted in HPI and below Physical Exam Vital Signs: BMI result Body Mass Index 34.6 Const General: no acute distress, alert and awake Orientation/consciousness: patient oriented x3 HEENT Head: Yes normocephalic and Yes atraumatic Mouth: moist mucous membranes Eyes General: appearance normal, both eyes and all related structures EOM: EOMs intact bilaterally Chest Other: no audible wheezing. Resp Other: No audible wheezing Effort & Inspection: normal respiratory effort and able to speak in complete sentences Cardio Other: Radial pulse palpable with no rythmic abnormalities Jugular venous distension: no JVD Back/Spine/Pelvis Cervical Spine: normal cervical lordosis Skin General skin exam: turgor normal Rashes: no rashes Neuro General: patient oriented x3 Extrem Other: Full ROM left knee Limited IR bilateral hips. + impingment test right hip Psych Appearance: grossly normal Mental Status: mental status grossly normal Speech and movement: Normal speech and movement present Affect: normal affect Attitude: cooperative Results Reviewed Results Reviewed: I personally reviewed relevant radiographs. mild bilateral degenerative hip OA Assessment & Plan Assessment & Plan (1) Bilateral primary osteoarthritis of knee: Code(s): M17.0 - Bilateral primary osteoarthritis of knee (2) Arthritis of right hip: Code(s): M16.11 - Unilateral primary osteoarthritis, right hip Plan: Bilateral hip mild OA and stiffness and mild pain on the right. I discussed treatment options. At this time she is recovering from a CVA and I think PT is the best thing for her. If her hip pain worsens I would suggest injection. (3) Synovial cyst of popliteal space [Arias], left knee: Code(s): M71.22 - Synovial cyst of popliteal space [Arias], left knee Plan Prepared for Brandon Jauregui MD by Zeyad Gimenez, medical transcription radiology, on 01/14/24 at 10:08 AM, EST. Coding Level of Care Code Est Pt Level 4 (22686) Diagnoses Bilateral primary osteoarthritis of knee M17.0 Arthritis of right hip M16.11 Synovial cyst of popliteal space [Arias], left knee M71.22
== END 2024-01-14 10:58 | disposition home or self-care (01) ==
PROVIDERS: PCP Internal Medicine; Visit Provider Orthopaedic Surgery
DX: M17.0 Bilateral primary osteoarthritis of knee (principal); M71.22 Synovial cyst of popliteal space [Baker], left knee; M16.0 Bilateral primary osteoarthritis of hip
CPT/HCPCS: 99212

== ENCOUNTER → 2024-01-14 10:00 | Outpatient (BNVA) | payer MEDICARE, SELFPAY | PROVIDERS: PCP Internal Medicine; Visit Provider Orthopaedic Surgery | DX: M17.0 Bilateral primary osteoarthritis of knee (principal); M16.11 Unilateral primary osteoarthritis, right hip; M71.22 Synovial cyst of popliteal space [Baker], left knee | CPT/HCPCS: 99212 ==

== ENCOUNTER 2024-01-29 13:32 | Outpatient (AMB) | payer MEDICARE, SELFPAY ==
[2024-01-29 13:35] VITALS: BP 124/82; PULSE 66; O2SAT 98; BMI 33.6
--- NOTE | 2024-01-29 13:35 | A.OFFPC_ITS ---
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 Furnace Supervisor Required: No Welfare Visitor: Present Allergies amoxicillin [Augmentin] Allergy (Unknown, Verified 01/29/24 13:35) hives clavulanic acid [Augmentin] Allergy (Unknown, Verified 01/29/24 13:35) hives furosemide Allergy (Unknown, Verified 01/29/24 13:35) unknown latex [LATEX] Allergy (Unknown, Verified 01/29/24 13:35) UNKNOWN lisinopril Allergy (Unknown, Verified 01/29/24 13:35) Unknown oxycodone [Percocet] Allergy (Unknown, Verified 01/29/24 13:35) Stomach upset tramadol Allergy (Unknown, Verified 01/29/24 13:35) Stomach uspet Medication List - Last Reconciled 02/01/24 by Allen Cortés MD amantadine HCl 100 mg PO BID aspirin 81 mg PO DAILY atorvastatin 40 mg PO BEDTIME blood sugar diagnostic FREESTYLE LITE TEST STRIPS TO CHECK THREE TIMES A DAY blood-glucose meter (FreeStyle Lite Meter kit) As directed diclofenac sodium 1% 2 grams topical BID PRN ezetimibe 10 mg PO BEDTIME gabapentin 300 mg (3 x 100 mg) PO BEDTIME gabapentin 300 mg PO DAILY insulin lispro (Humalog KwikPen (U-100) Insulin) 1 sliding scale dose subcut TIDAC levothyroxine 112 mcg PO DAILY liraglutide 1.2 mg (0.2 mL) subcut DAILY 30 days lorazepam 1 mg PO TID PRN losartan 25 mg PO DAILY 30 days metformin 1,000 mg PO BIDWM pantoprazole 40 mg PO DAILY pen needle, diabetic (Novofine 32) As directed up to three times per day [Stair lift As directed] tramadol 50 mg PO Q6H PRN Tobacco use date assessed: 01/06/24 Fall risk assessment: No Falls in past year Last assessed Fall Risk: 01/29/24 Dental Screening Dental Screen Date: 01/29/24 Did you have a dental visit in the last 12 months?: Yes Did you have a dental problem in the last 6 months where you did not have access to dental care?: No Was dental information given to patient?: Patient has dentist HPI 3mth f/u HPI Details diabetes hyperlip and htn; stable and compliant on rx PFSH Medical History Hypothyroidism Obesity Type 2 diabetes mellitus with morbid obesity Annual physical exam Vitamin D deficiency HLD (hyperlipidemia) T2DM (type 2 diabetes mellitus) Diabetes mellitus Hypertension Surgical History History of surgery History of colonoscopy History of appendectomy History of cholecystectomy S/P JOSIE (total abdominal hysterectomy) Family History Father Diabetes Mother CHF (congestive heart failure) CVD (cardiovascular disease) Brother HIV (human immunodeficiency virus infection) Social History Household Members: None Housing: House Do you presently have visiting nurse or other home services: No Alcohol intake: never Patient Tobacco Use Status: Former Tobacco user Quit Date: 2013 Tobacco use type: Cigarette Years Smoked: 30 e-Cigarette/Vaping Use: Currently Using Second Hand Smoke Exposure: No Advance Directives Date on File: 10/01/23 service: No Current occupational status: retired Cognitive needs: No Hearing needs: No Vision needs: No Questionnaire Thrive Questionnaire Date Thrive assessed: 12/12/23 ARSLAN-7 AMB Questionnaire ARSLAN-7 Date ARSLAN - 7 assessed: 01/06/24 Source: Developed by Drs. Mendez Sanz, Shannan Quintanilla, Fuentes Sales and colleagues, with an educational aurelia from [employer]. Review of Systems Const Denies chills, Denies headache(s) and Denies weight loss ENT Denies headache(s) Card Denies chest pain, Denies syncope, Denies irregular heart rhythm and Denies dyspnea Resp Denies chest congestion, Denies cough and Denies dyspnea GI Denies abdominal pain, Denies change in stool character, Denies nausea and Denies vomiting Musc Denies deformity and Denies joint swelling Neuro Denies syncope and Denies headache(s) Physical exam (Primary Care) Vital Signs: Last Vital Signs Pulse 66 01/29/24 13:35 BP 124/82 01/29/24 13:35 Pulse Ox 98 01/29/24 13:35 Oxygen Delivery Method Room Air 01/29/24 13:35 BMI result Body Mass Index 33.6 Tobacco/Smoking Status: Tobacco use Status Tobacco use date assessed 01/06/24 01/29/24 13:36 Patient Tobacco Use Status Former Tobacco user 01/29/24 13:36 Tobacco use type Cigarette 01/29/24 13:36 e-Cigarette/Vaping Use Currently Using 01/29/24 13:36 Thrive Assessment: Date of Thrive Assessment Date Thrive assessed 12/12/23 01/29/24 13:36 Const General: cooperative, comfortable, no acute distress and alert Neck Neck: Yes no lymphadenopathy Thyroid: Thyroid normal Resp Effort & Inspection: normal respiratory effort Auscultation: clear to auscultation bilaterally Percussion: percussion normal Cardio Jugular venous distension: no JVD Palpation: normal PMI Rate: regular rate Rhythm: regular rhythm Heart sounds: S1 normal heart sound present and S2 normal heart sound present GI Inspection: Yes normal to inspection Palpation (GI): No hepatosplenomegaly present Skin General skin exam: no rashes or lesions noted Extrem General: Yes no clubbing, cyanosis or edema Assessment and Plan Assessment & Plan (1) Type 2 diabetes mellitus with morbid obesity: Code(s): E11.69 - Type 2 diabetes mellitus with other specified complication; E66.01 - Morbid (severe) obesity due to excess calories Plan: stable; same rx (2) HLD (hyperlipidemia): Code(s): E78.5 - Hyperlipidemia, unspecified Qualifiers: Hyperlipidemia type: unspecified Qualified Code(s): E78.5 - Hyperlipidemia, unspecified Plan: stable; same rx (3) Hypertension: Code(s): I10 - Essential (primary) hypertension Qualifiers: Hypertension type: unspecified Qualified Code(s): I10 - Essential (primary) hypertension Plan: stable ;same rx Orders: Orders Glucose Fasting Today R73.9 - Hyperglycemia, unspecified Hemoglobin A1c Today R73.9 - Hyperglycemia, unspecified Lipid Panel Today E78.5 - Hyperlipidemia, unspecified Medications: New gabapentin 300 mg PO DAILY 90 caps 3RF Coding Level of Care Code Est Pt Level 4 (49259) Diagnoses Type 2 diabetes mellitus with morbid obesity E11.69; E66.01 Hyperlipidemia, unspecified hyperlipidemia type E78.5 Hyperlipidemia type: unspecified Hypertension, unspecified type I10 Hypertension type: unspecified
== END 2024-01-29 14:04 | disposition home or self-care (01) ==
PROVIDERS: PCP Internal Medicine; Visit Provider Internal Medicine
DX: E11.69 Type 2 diabetes mellitus with other specified complication (principal); E66.01 Morbid (severe) obesity due to excess calories; Z68.33 Body mass index [BMI] 33.0-33.9, adult; E78.5 Hyperlipidemia, unspecified; I10 Essential (primary) hypertension
CPT/HCPCS: 99214

== ENCOUNTER 2024-04-29 09:17 | Outpatient (REF) | payer MEDICARE, SELFPAY ==
[2024-04-29 09:42] LABS: MANUAL DIFF FLAG NO
[2024-04-29 11:17] LABS: Basophils Absolute Auto 0.1 X10*3/uL (0.0-0.2); Basophils Percent Auto 1.1 % (0-2); Eosinophils Absolute Auto 0.3 X10*3/uL (0.0-0.4); Hematocrit 36.6 % (37.0-47.0); Hemoglobin 11.3 g/dl (12.0-16.0); Imm Gran Abs Auto 0.01 X10*3/uL (0.00-0.03); Imm Gran Pct Auto 0.2 % (0.0-0.4); Lymphocytes Absolute Auto 2.2 X10*3/uL (1.2-4.9); Lymphocytes Percent Auto 37.9 % (20-40); Mean Corpuscular HGB Conc 30.9 g/dl (31.0-35.0); Mean Corpuscular Hemoglobin 26.7 pg (27.0-33.0); Mean Corpuscular Volume 86.3 fL (80.0-98.0); Mean Platelet Volume 11.2 fL (9.4-12.3); Monocytes Absolute Auto 0.4 X10*3/uL (0.1-1.2); Monocytes Percent Auto 6.5 % (2-11); Neutrophils Absolute Auto 2.8 x10*3/uL (2.0-8.3); Neutrophils Percent Auto 48.3 % (45-73); Platelet Count 217 X10*3/uL (160-400); Red Blood Count 4.24 X10*6/uL (4.20-5.50); Red Cell Distribution Width 15.5 % (11.0-16.0); White Blood Count 5.7 X10*3/uL (4.8-10.8)
[2024-04-29 11:23] LABS: Estimated Average Glucose 140 mg/dL; Hemoglobin A1c % 6.5 % (<6.0)
[2024-04-29 12:11] LABS: Alanine Aminotransferase 10 U/L (0-31); Albumin Level 3.8 g/dL (3.5-5.0); Alkaline Phosphatase 49 U/L (39-117); Anion Gap 11 (12-20); Aspartate Amino Transferase 15 U/L (5-31); Bilirubin Total 0.3 mg/dL (0.0-1.0); Blood Urea Nitrogen 12 mg/dL (9-16); Calcium 9.1 mg/dL (8.4-10.2); Carbon Dioxide 30 mmol/L (22-29); Chloride 105 mmol/L (96-108); Cholesterol 130 mg/dL (<200); Estimated Glomerular Filt Rate > 60; Glucose Fasting 110 mg/dL (60-99); HDL Cholesterol 51 mg/dL (>40); LDL Cholesterol Calculated 58 mg/dL (<100); Potassium 4.3 mmol/L (3.3-5.1); Sodium 142 mmol/L (135-145); Total Protein 6.4 g/dL (6.5-8.0); Triglycerides 107 mg/dL (<150)
== END 2024-04-29 09:18 | disposition home or self-care (01) ==
LOC: HO.LAB 09:17
PROVIDERS: PCP Internal Medicine; Visit Provider Internal Medicine
DX: E78.5 Hyperlipidemia, unspecified (principal); D64.9 Anemia, unspecified; N28.9 Disorder of kidney and ureter, unspecified; R73.9 Hyperglycemia, unspecified
CPT/HCPCS: 36415; 80053; 80061; 83036; 85025

== ENCOUNTER 2024-05-02 13:33 | Outpatient (AMB) | payer MEDICARE, SELFPAY ==
[2024-05-02 13:36] VITALS: BP 130/60; PULSE 65; O2SAT 98; BMI 33.8
--- NOTE | 2024-05-02 13:36 | MHC.PC.OV ---
Vital Signs 05/02/24 13:36 Height 5 ft 1 in Weight 179 lb BMI 33.8 BP 130/60 Pulse 65 Pulse Source Pulse Oximeter Pulse Oximetry (%) 98 Oxygen Delivery Method Room Air Intake Visit Reasons: 3mth f/u Fan Mail Editor: Not Required per policy Accompanied by: Self / Same As Patient Allergies amoxicillin [Augmentin] Allergy (Unknown, Verified 01/29/24 13:35) hives clavulanic acid [Augmentin] Allergy (Unknown, Verified 01/29/24 13:35) hives furosemide Allergy (Unknown, Verified 01/29/24 13:35) unknown latex [LATEX] Allergy (Unknown, Verified 01/29/24 13:35) UNKNOWN lisinopril Allergy (Unknown, Verified 01/29/24 13:35) Unknown oxycodone [Percocet] Allergy (Unknown, Verified 01/29/24 13:35) Stomach upset tramadol Allergy (Unknown, Verified 01/29/24 13:35) Stomach uspet Medication List - Last Reconciled 05/03/24 by Allen Cortés MD aspirin 81 mg PO DAILY atorvastatin 40 mg PO BEDTIME blood sugar diagnostic FREESTYLE LITE TEST STRIPS TO CHECK THREE TIMES A DAY blood-glucose meter (FreeStyle Lite Meter kit) As directed diclofenac sodium 1% 2 grams topical BID PRN ezetimibe 10 mg PO BEDTIME gabapentin 300 mg PO DAILY levothyroxine 112 mcg PO DAILY liraglutide 1.2 mg (0.2 mL) subcut DAILY 30 days losartan 25 mg PO DAILY 30 days metformin 1,000 mg PO BIDWM pantoprazole 40 mg PO DAILY pen needle, diabetic (Novofine 32) As directed up to three times per day [Stair lift As directed] tramadol 50 mg PO Q6H PRN Tobacco use date assessed: 01/06/24 Fall risk assessment: No Falls in past year Last assessed Fall Risk: 05/02/24 Dental Screening Dental Screen Date: 01/29/24 HPI 3mth f/u HPI Details hyperlip on rx; doing well and labs fine PFSH Medical History Hypothyroidism Obesity Type 2 diabetes mellitus with morbid obesity Annual physical exam Vitamin D deficiency HLD (hyperlipidemia) T2DM (type 2 diabetes mellitus) Diabetes mellitus Hypertension Surgical History History of surgery History of colonoscopy History of appendectomy History of cholecystectomy S/P JOSIE (total abdominal hysterectomy) Family History Father Diabetes Mother CHF (congestive heart failure) CVD (cardiovascular disease) Brother HIV (human immunodeficiency virus infection) Social History Household Members: None Housing: House Do you presently have visiting nurse or other home services: No Alcohol intake: never Patient Tobacco Use Status: Former Tobacco user Tobacco use type: Cigarette Years Smoked: 30 e-Cigarette/Vaping Use: Currently Using Second Hand Smoke Exposure: No Advance Directives Date on File: 10/01/23 service: No Current occupational status: retired Cognitive needs: No Hearing needs: No Vision needs: No Questionnaire Thrive Questionnaire Date Thrive assessed: 12/12/23 ARSLAN-7 AMB Questionnaire ARSLAN-7 Date ARSLAN - 7 assessed: 01/06/24 Source: Developed by Drs. Mendez Sanz, Shannan Quintanilla, Fuentes Sales and colleagues, with an educational aurelia from [employer]. Review of Systems Const Denies chills, Denies headache(s) and Denies weight loss ENT Denies headache(s) Card Denies chest pain, Denies syncope, Denies irregular heart rhythm and Denies dyspnea Resp Denies chest congestion, Denies cough and Denies dyspnea GI Denies abdominal pain, Denies change in stool character, Denies nausea and Denies vomiting Musc Denies deformity and Denies joint swelling Neuro Denies syncope and Denies headache(s) Physical exam (Primary Care) Vital Signs: Last Vital Signs Pulse 65 05/02/24 13:36 BP 130/60 05/02/24 13:36 Pulse Ox 98 05/02/24 13:36 Oxygen Delivery Method Room Air 05/02/24 13:36 BMI result Body Mass Index 33.8 Tobacco/Smoking Status: Tobacco use Status Tobacco use date assessed 01/06/24 05/02/24 13:43 Patient Tobacco Use Status Former Tobacco user 05/02/24 13:43 Tobacco use type Cigarette 05/02/24 13:43 e-Cigarette/Vaping Use Currently Using 05/02/24 13:43 Thrive Assessment: Date of Thrive Assessment Date Thrive assessed 12/12/23 05/02/24 13:43 Const General: cooperative, comfortable, no acute distress and alert Neck Neck: Yes no lymphadenopathy Thyroid: Thyroid normal Resp Effort & Inspection: normal respiratory effort Auscultation: clear to auscultation bilaterally Percussion: percussion normal Cardio Jugular venous distension: no JVD Palpation: normal PMI Rate: regular rate Rhythm: regular rhythm Heart sounds: S1 normal heart sound present and S2 normal heart sound present GI Inspection: Yes normal to inspection Palpation (GI): No hepatosplenomegaly present Skin General skin exam: no rashes or lesions noted Extrem General: Yes no clubbing, cyanosis or edema Assessment and Plan Assessment & Plan (1) HLD (hyperlipidemia): Code(s): E78.5 - Hyperlipidemia, unspecified Qualifiers: Hyperlipidemia type: unspecified Qualified Code(s): E78.5 - Hyperlipidemia, unspecified Plan: stable; same rx Medications: Refilled atorvastatin 40 mg PO BEDTIME 90 tabs 0RF Coding Level of Care Code Est Pt Level 3 (57510) Diagnoses Hyperlipidemia, unspecified hyperlipidemia type E78.5 Hyperlipidemia type: unspecified
== END 2024-05-02 13:55 | disposition home or self-care (01) ==
PROVIDERS: PCP Internal Medicine; Visit Provider Internal Medicine
DX: E78.5 Hyperlipidemia, unspecified (principal)
CPT/HCPCS: 99213

== ENCOUNTER 2024-06-26 14:22 | Emergency (ER) | payer MEDICARE, SELFPAY ==
--- NOTE | ~2024-06-26 | CT_ITS ---
EXAMINATION: CT ANGIOGRAM HEAD CT ANGIOGRAM NECK CLINICAL INFORMATION: Left-sided weakness, facial droop COMPARISON: MRI brain 12/11/2023 and CTA 12/11/2023 TECHNIQUE: Test bolus sequences followed by intravenous administration 70 mL of Omnipaque 350. Helical imaging was performed in the axial plane from the aortic arch to the skull vertex. Delayed postcontrast imaging of the head was also performed. The data was processed at the blood bank laboratory technologist's workstation for generation of MIP sequences. Angled MIPs and volume rendered reformatted images were also generated at an offline 3D workstation. Stenoses are assessed in accordance with Chu et al. Quantification of Carotid Stenosis on CT Angiography. AJR 2006. 27(1):13-19. This CT examination was performed using dose optimization techniques as appropriate, variously including the following: *Automated exposure control *Adjustment of mA and/or kV according to patient size (this includes techniques or standardized protocols for targeted exams where dose is matched to indication/reason for exam; i.e. extremities or head) *Use of iterative reconstruction technique DLP: 1386 mGy-cm FINDINGS: CT HEAD: Hyperdense vessel sign within the right sylvian fissure corresponding to thrombotic occlusion on CTA. Moderate global cerebral volume loss and nonspecific white matter disease presumably reflecting moderate to advanced chronic microangiopathy or redemonstrated. No acute territorial edematous infarct. No intracranial hemorrhage or extra-axial fluid collection. No mass lesion, severe mass effect, or herniation pattern. No pathologic intra-axial enhancement or regional oligemia. Partially empty sella. Lens replacements. Paranasal sinuses and mastoid air cells are well aerated. Osseous structures are intact. CTA HEAD: Abrupt occlusion of a right proximal inferior M2 division branch without definite distal reconstitution, noting venous artifact limits assessment (image 252, series 6). Patchy mild calcific plaque along the carotid siphons without stenosis. 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 Dominant right A1 DANA supplying the anterior circulation with a congenitally plastics/aplastic left A1 segment. No aneurysms and no high flow vascular malformations. Timing of the contrast bolus allows assessment of the major dural venous sinuses, which all opacify normally CTA NECK: Four vessel branching pattern with left vertebral artery arising directly from the arch between the left common carotid and left subclavian arteries. Mild partially calcified atherosclerotic disease of the aortic arch and great vessel origins. Origins of the great vessels are widely patent. The common carotid arteries are widely patent. Partially calcified atherosclerotic disease at the carotid bifurcations without stenosis. The internal carotid arteries are widely patent. The vertebral arteries are codominant. Nondiagnostic assessment of the left vertebral artery origin. Widely patent right vertebral artery origin. Both vertebral arteries are widely patent throughout their extracranial cervical course apart from moderate extrinsic compression of the right V2 vertebral artery at C3-C4 related to hypertrophic uncovertebral and facet joint arthropathy. CT NECK: Calcified bilateral palatine tonsilloliths. Soft tissue along the base of tongue asymmetrically effacing the left vallecula and abutting the lingual surface of the epiglottis, presumably lingual tonsillar hyperplasia. Exophytic thyroid tissue projecting into the right tracheoesophageal groove. Partially imaged emphysematous changes in the lungs. Some dependent aspirated secretions in the trachea and proximal right mainstem bronchus. Multilevel cervical spondylosis with high-grade neural foraminal narrowing without high-grade spinal canal stenosis. CT/CT angio head neck stroke IMPRESSION: 1. No acute intracranial findings. Stable chronic findings as above. 2. Hyperdense vessel sign within the right sylvian fissure corresponding to thrombotic occlusion of a proximal right inferior M2 division MCA branch on CTA. Findings discussed with Maida KHALIL at 3:13 PM on 06/26/2024. 3. Otherwise stable appearance of the craniocervical vasculature.
--- NOTE | ~2024-06-26 | CT_ITS ---
EXAMINATION: CT HEAD WITHOUT CONTRAST (STROKE PROTOCOL) CLINICAL INFORMATION: Stroke protocol. Left-sided weakness, facial droop COMPARISON: CT head without contrast 12/11/2023. MRI brain 12/11/2023 TECHNIQUE: Contiguous axial imaging was performed from the skull base to vertex without intravenous administration of contrast. This CT examination was performed using dose optimization techniques as appropriate, variously including the following: *Automated exposure control *Adjustment of mA and/or kV according to patient size (this includes techniques or standardized protocols for targeted exams where dose is matched to indication/reason for exam; i.e. extremities or head) *Use of iterative reconstruction technique DLP: 608 mGy-cm FINDINGS: There is no evidence of acute intracranial hemorrhage or edematous territorial infarction. The manjarrez-white matter differentiation appears preserved. Patchy hypodensities in the periventricular and deep white matter likely representing moderate chronic microangiopathic changes. Partial thrombus of the ventricles and cortical sulci with diffuse volume loss. No mass effect or midline shift. No acute extra-axial collections. No acute osseous or soft tissue abnormality. The included paranasal sinuses and mastoids are well-aerated. CT/CT head for stroke IMPRESSION: No acute intracranial pathology. Diffuse volume loss and moderate chronic microangiopathy. This critical result was discussed with Maida KHALIL at 3:07 PM on 06/26/2024. It was ascertained that the content and urgency of the report was understood at the time of direct communication.
--- NOTE | 2024-06-26 14:24 | ECG_ITS ---
Test Reason : ?STROKE Blood Pressure : / mmHG Vent. Rate : 061 BPM Atrial Rate : 061 BPM P-R Int : 180 ms QRS Dur : 098 ms QT Int : 418 ms P-R-T Axes : 098 -26 045 degrees QTc Int : 420 ms Normal sinus rhythm Incomplete right bundle branch block Borderline ECG When compared with ECG of 11-DEC-2023 13:46, T wave amplitude has decreased in Inferior leads T wave inversion no longer evident in Lateral leads Referred By: Maida Puri Electronically Signed By:SISI SOSA MD
--- NOTE | 2024-06-26 14:25 | ED.GENADULT ---
HPI - General Adult General Chief complaint: Stroke Stated complaint: STROKE SYMPTOMS Time Seen by Provider: 06/26/24 14:24 Source: patient and EMS Mode of arrival: EMS Limitations: other (Poor historian) History of Present Illness ED Provider: Vaughn THOMAS HPI narrative: 78-year-old female history of hypertension, obesity, hyperlipidemia, diabetes type 2, hypothyroidism presents to the emergency department with left-sided weakness, left-sided numbness, changes in speech, facial droop unclear exactly when this all started according to EMS patient reports patient's last known well time was last night at approximately 21:00. Patient does not know if she woke up normal or if she had a facial droop. She reports im not well.. im numb . Denies trauma but states she has almost fallen a few times over the past few days. Lives alone. Not on thinners. Denes cp, sob, headstrike, trauma, nausea, vomiting,urinary changes, dizziness, abd pain. Per ems family states hx of stroke about a year ago w/o deficits. At baseline independent Related Data Home Medications ?Medication ?Instructions ?Recorded ?Confirmed diclofenac sodium 1 % topical gel 2 g topical BID PRN arthritis 10/11/23 05/03/24 pantoprazole 40 mg tablet,delayed 40 mg PO DAILY 01/06/24 05/03/24 release tramadol 50 mg tablet 50 mg PO Q6H PRN 01/06/24 05/03/24 levothyroxine 112 mcg tablet 112 mcg PO DAILY 05/02/24 05/03/24 Previous Rx's ?Medication ?Instructions ?Recorded blood-glucose meter (FreeStyle #1 ea 01/10/21 Lite Meter kit) pen needle, diabetic 32 gauge x #100 ea 11/05/2311/26 (Novofine 32) aspirin 81 mg tablet,delayed 81 mg PO DAILY #30 tabs 12/14/23 release Stair lift #1 ea 01/19/24 gabapentin 300 mg capsule 300 mg PO DAILY #90 caps 01/29/24 losartan 25 mg tablet 25 mg PO DAILY 30 days #90 tabs 05/13/24 metformin 1,000 mg tablet 1,000 mg PO BIDWM #180 tabs 05/13/24 liraglutide 0.6 mg/0.1 mL (18 mg/3 1.2 mg (0.2 mL) subcut DAILY 30 05/16/24 mL) subcutaneous pen injector days #6 mL atorvastatin 40 mg tablet 40 mg PO BEDTIME #90 tabs 05/28/24 ezetimibe 10 mg tablet 10 mg PO BEDTIME #30 tabs 05/28/24 blood sugar diagnostic #100 ea 06/18/24 Allergies Allergy/AdvReac Type Severity Reaction Status Date / Time amoxicillin [Augmentin] Allergy Unknown hives Verified 06/26/24 14:34 clavulanic acid [Augmentin] Allergy Unknown hives Verified 01/29/24 13:35 furosemide Allergy Unknown unknown Verified 01/29/24 13:35 latex [LATEX] Allergy Unknown UNKNOWN Verified 01/29/24 13:35 lisinopril Allergy Unknown Unknown Verified 01/29/24 13:35 oxycodone [Percocet] Allergy Unknown Stomach Verified 01/29/24 13:35 upset tramadol Allergy Unknown Stomach Verified 01/29/24 13:35 uspet Review of Systems Review of Systems: Yes all other systems are reviewed and are negative PMFSH Past Medical History Attestation statement: The following information was validated with the patient. Source: old records reviewed and nursing notes reviewed Medical History Hypothyroidism Obesity Type 2 diabetes mellitus with morbid obesity Annual physical exam Vitamin D deficiency HLD (hyperlipidemia) T2DM (type 2 diabetes mellitus) Diabetes mellitus Hypertension Surgical History History of surgery History of colonoscopy History of appendectomy History of cholecystectomy S/P JOSIE (total abdominal hysterectomy) Family History Family History Father Diabetes Mother CHF (congestive heart failure) CVD (cardiovascular disease) Brother HIV (human immunodeficiency virus infection) Social History Social History Household Members: None Housing: House Do you presently have visiting nurse or other home services: No Alcohol intake: never Patient Tobacco Use Status: Former Tobacco user Tobacco use type: Cigarette Years Smoked: 30 Smoked in Last 30 Days: No e-Cigarette/Vaping Use: Currently Using Second Hand Smoke Exposure: No Advance Directives: Yes Advance Directives on File: Yes Advance Directives Date on File: 12/15/23 Do you have a plan to hurt others: No Plan service: No Current occupational status: retired Cognitive needs: No Hearing needs: No Vision needs: No Physical Exam ED Vital Signs: Vital Signs - 24 hr 06/26/24 14:30 Temperature 98.5 F Pulse Rate 57 Respiratory Rate 16 Blood Pressure 162/65 H Pulse Oximetry 95 Oxygen Delivery Method Room Air BMI result Body Mass Index 36.5 vss Appearance: Alert.? Oriented X3.? No acute distress.?+ slurred speech Head: Normocephalic, atraumatic, no step-offs or deformities Eyes: Pupils equal, round and reactive to light.? ENT: Pharynx normal.?+ left sided facial droop Neck: Normal inspection.? Neck supple.? CVS: Normal heart rate and rhythm.? Pulses normal.? Respiratory: No respiratory distress.? Breath sounds normal.? Abdomen: Soft and nontender.? Skin: Skin warm and dry.? Normal skin color.? Normal skin turgor.? Extremities: No lower extremity edema.? No calf ttp. Global weakness however definite left-sided deficits significant weakness to left upper extremity left lower extremity with associated numbness per patient. Unable to lift her hand or leg from the stretcher. Able to slightly lift her right upper extremity and right lower extremity. Normal sensation on the right. Back: No midline tenderness, no C-spine tenderness, full range of motion, no CVA tenderness bilaterally Neuro: Oriented X 3.? No motor deficit.? No sensory deficit. CN 2-12 intact + pronator drift on the left Course Reevaluation(s) Reevaluation #1: Call Dry head CT - negative. 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 Time: 15:14 Reevaluation #2: Call out to [facility] for possibility of thrombectomy. I did have a long discussion with family and patient they are agreeable to this. Spoke to neuro here Dr. Marroquin, iraida FLORES , hold losartan and discuss with [facility] for possible thrombectomy Time: 15:23 Reevaluation #3: Spoke to Dr. Holland ( Interventional Neuroradiology) [facility] who tells me he will reach out to the ICU to discuss bed availability. Time: 15:43 Additional Reevaluation(s): 1544- Troponin 722.5 this is likely demand ischemia from possible stroke. Will repeat at the 3 hour crissy. Patient denies chest pain or shortness of breath. I did review EKG with Dr. Ramírez, new inverted T-waves however no reciprocal changes nonischemic appearing. Will trend. Will inform next provider if transferred. 1554 Per [facility] at capacity unable to accept transfer. Will reach out to [facility] 1613 Patient accepted at [facility] ED --> ED, . [place] and family agree to being [place] state [place]. I did explain to them I tried multiple in [facility] with little to no success. There is no other neuro interventional center's in close proximity. I explained I could called [facility] however this may be further and they could also denied transfer due to capacity as this has been a common trend in the past few months. Patient and daughter/proxy agreeable to this plan. Will fill out paperwork for transfer. Medications Administered Discontinued Medications Generic Name Dose Route Start Last Admin Trade Name Freq PRN Reason Stop Dose Admin Aspirin 81 mg 06/26/24 15:27 06/26/24 15:50 Aspirin 81 Mg Tab.Chew PO 06/26/24 15:28 Not Given ONCE ONE Iohexol 100 ml 06/26/24 14:43 06/26/24 14:43 Iohexol 350 Mg/Ml 100 Ml Infus..Btl IV 06/26/24 14:44 70 ml ONCE ONE Administration Medical Decision Making Medical Decision Making [facility] Narrative: 1430 78-year-old female presents with left-sided deficits, weakness, changes in speech, numbness of the left side last known well time was yesterday 21:00 witnessed by family. Patient is unclear if she was normal this morning. Poor historian. Lives alone. Physical exam left-sided weakness, facial droop, positive pronator drift on the left. History and physical exam concerning for possible stroke versus large vessel occlusion. Unlikely posterior stroke. Will rule out metabolic derangements, urinary infection Plan labs, imaging, urine NIHSS -11 NIH Stroke Scale/Score (NIHSS) from [email or web address] on 06/26/2024 All calculations should be rechecked by clinician prior to use RESULT SUMMARY: 11 points NIH Stroke Scale INPUTS: 1A: Level of consciousness ?> 0 = Alert; keenly responsive 1B: Ask month and age ?> 0 = Both questions right 1C: 'Blink eyes' & 'squeeze hands' ?> 1 = Performs 1 task 2: Horizontal extraocular movements ?> 0 = Normal 3: Visual mcqueen ?> 0 = No visual loss 4: Facial palsy ?> 1 = Minor paralysis (flat nasolabial fold, smile asymmetry) 5A: Left arm motor drift ?> 4 = No movement 5B: Right arm motor drift ?> 0 = No drift for 10 seconds 6A: Left leg motor drift ?> 4 = No movement 6B: Right leg motor drift ?> 0 = No drift for 5 seconds 7: Limb Ataxia ?> 0 = No ataxia 8: Sensation ?> 0 = Normal; no sensory loss 9: Language/aphasia ?> 1 = Mild-moderate aphasia: some obvious changes, without significant limitation 10: Dysarthria ?> 0 = Normal 11: Extinction/inattention ?> 0 = No abnormality Differential Diagnosis Differential Diagnoses: The differential diagnosis associated with the presentation includes History and physical exam concerning for possible stroke versus large vessel occlusion. Unlikely posterior stroke. Will rule out metabolic derangements, urinary infection Admission/Observation Consideration of admission/observation: Escalation of care including admission/observation considered Lab Data MDM Lab Attestation statement: I reviewed the patient's lab results. 06/26/24 15:16 06/26/24 15:16 Labs: Lab Results 06/26/24 06/26/24 06/26/24 Range/Units 14:55 14:56 15:16 WBC 7.4 (4.8-10.8) X10*3/uL RBC 4.12 L (4.20-5.50) X10*6/uL Hgb 11.1 L (12.0-16.0) g/dl Hct 35.2 L (37.0-47.0) % MCV 85.4 (80.0-98.0) fL MCH 26.9 L (27.0-33.0) pg MCHC 31.5 (31.0-35.0) g/dl RDW 14.6 (11.0-16.0) % Plt Count 229 (160-400) X10*3/uL MPV 10.4 (9.4-12.3) fL Immature Gran % (Auto) 0.4 (0.0-0.4) % Neut % (Auto) 60.6 (45-73) % Lymph % (Auto) 27.1 (20-40) % [place] % (Auto) 6.1 (2-11) % Eos % (Auto) 4.9 H (0-4) % Baso % (Auto) 0.9 (0-2) % Lymph # (Auto) 2.0 (1.2-4.9) X10*3/uL [place] # (Auto) 0.5 (0.1-1.2) X10*3/uL Eos # (Auto) 0.4 (0.0-0.4) X10*3/uL Baso # (Auto) 0.1 (0.0-0.2) X10*3/uL Abs Immat Gran (auto) 0.03 (0.00-0.03) X10*3/uL Absolute Neuts (auto) 4.5 (2.0-8.3) x10*3/uL Absolute Nucleated RBC 0.000 (0.0-0.012) X10*3/uL Nucleated RBC % (auto) 0.0 (0.0-0.2) /100WBC PT 11.3 (11.1-13.3) SEC Whole Blood PT 12.3 (11.1-13.5) sec INR 0.9 (0.9-1.1) Whole Blood INR 1.0 (0.9-1.1) APTT 31.5 (26.0-36.8) SEC Sodium 142 (135-145) mmol/L Potassium 4.4 (3.3-5.1) mmol/L Chloride 105 (96-108) mmol/L Carbon Dioxide 28 (22-29) mmol/L Anion Gap 13 (12-20) BUN 19 H (9-16) mg/dL Creatinine 0.88 (0.5-1.4) mg/dL Estim Creat Clear Calc 53.0 Estimated GFR > 60 POC Glucose 82 (60-115) mg/dL Random Glucose 86 (60-115) mg/dL Calcium 9.6 (8.4-10.2) mg/dL Troponin I High Sens 722.5 H* D (<3.5-17.0) ng/L Triglycerides 161 H (<150) mg/dL Cholesterol 130 (<200) mg/dL LDL Cholesterol, Calc 45 (<100) mg/dL HDL Cholesterol 53 (>40) mg/dL Independent Interpretation I performed an independent interpretation of an: EKG (Vent. Rate : 061 BPM Atrial Rate : 061 BPM P-R Int : 180 ms QRS Dur : 098 ms QT Int : 418 ms P-R-T Axes : 098 -26 045 degrees QTc Int : 420 ms Normal sinus rhythm Incomplete right bundle branch block Borderline ECG When compared with ECG of 11-DEC-2023 13:46, T wave am) and CT Scan (CT/CT angio head neck stroke IMPRESSION: 1. No acute intracranial findings. Stable chronic findings as above. 2. Hyperdense vessel sign within the right sylvian fissure corresponding to thrombotic occlusion of a proximal right inferior M2 division MCA branch on CTA. Findings discussed with Mendez) Interpretation: CT/CT head for stroke IMPRESSION: No acute intracranial pathology. Diffuse volume loss and moderate chronic microangiopathy. This critical result was discussed with Maida KHALIL at 3:07 PM on 06/26/2024. It was ascertained that the content and urgency of the report was understood at the time of direct communication. CT/CT angio head neck stroke IMPRESSION: 1. No acute intracranial findings. Stable chronic findings as above. 2. Hyperdense vessel sign within the right sylvian fissure corresponding to thrombotic occlusion of a proximal right inferior M2 division MCA branch on CTA. Findings discussed with Maida KHALIL at 3:13 PM on 06/26/2024. 3. Otherwise stable appearance of the craniocervical vasculature. Radiology Impression Discussion of test interpretation with radiology: I have reviewed the radiologist's reading. Independent Historian Clinical information obtained from an independent historian. History obtained from or confirmed by: EMS External Record Review External record reviewed: Inpatient record, Office record, Outpatient record, Prior outpatient labs, Prior outpatient radiology, Primary care record and Outside ED record Chronic Conditions Patient?s care impacted by: Other (Hypertension, obesity, hyperlipidemia, diabetes type 2, hypothyroidism, CVA) Critical Care Time Critical Care Time Critical Care Time: Yes Total Critical Care Time: 60 Attestation: I attest to this time spent taking care of the patient, obtaining history, physical, reviewing labs, imaging, speaking to my attending, speaking to specialist. Discharge Plan Discharge Clinical Impression: Stroke, Acute left-sided weakness Patient Disposition: Xfer Acute Care Hospital Prescriptions: No Action (DME) pen needle, diabetic [Novofine 32] 32 gauge x 1/4 needle See Rx Instructions .Route Qty: 100 0RF Rx Instructions: As directed up to three times per day (DME) Stair lift See Rx Instructions .Route .MEDSUPPLY Qty: 1 0RF Rx Instructions: As directed losartan 25 mg tablet 25 mg PO DAILY 30 Days Qty: 90 8RF metformin 1,000 mg tablet 1,000 mg PO BIDWM Qty: 180 3RF liraglutide 0.6 mg/0.1 mL (18 mg/3 mL) pen injector 1.2 mg subcut DAILY 30 Days Qty: 6 11RF ezetimibe 10 mg tablet 10 mg PO BEDTIME Qty: 30 1RF atorvastatin 40 mg tablet 40 mg PO BEDTIME Qty: 90 0RF (DME) blood sugar diagnostic Strip See Rx Instructions .ROUTE .MEDSUPPLY Qty: 100 11RF Rx Instructions: FREESTYLE LITE TEST STRIPS TO CHECK THREE TIMES A DAY diclofenac sodium 1 % gel 2 g topical BID PRN (Reason: arthritis) Rx Instructions: apply to single elbow, wrist or hand; for hand includes palm/fingers/back of hand aspirin 81 mg Tablet,Delayed Release (Dr/Ec) 81 mg PO DAILY Qty: 30 0RF gabapentin 300 mg capsule 300 mg PO DAILY Qty: 90 3RF pantoprazole 40 mg tablet,delayed release (DR/EC) 40 mg PO DAILY tramadol 50 mg tablet 50 mg PO Q6H PRN levothyroxine 112 mcg tablet 112 mcg PO DAILY (DME) blood-glucose meter [FreeStyle Lite Meter] Kit See Rx Instructions .ROUTE .MEDSUPPLY Qty: 1 0RF Rx Instructions: As directed Print Language: Grenadian
[2024-06-26 14:30] VITALS: BP 146/81; BP 162/65; PULSE 57; PULSE 60; RESP 16; TEMP 36.9; O2SAT 95; BMI 25.9
[2024-06-26] MEDS: iohexoL 350 MG/ML 100 ML INFUS..BTL IV (14:43)
[2024-06-26 14:54] VITALS: BMI 36.5
[2024-06-26 15:05] LABS: Prothrombin Time Whole Bld POC 12.3 sec (11.1-13.5)
[2024-06-26 15:06] LABS: Glucose, Whole Blood 82 mg/dL (60-115)
[2024-06-26 15:20] LABS: MANUAL DIFF FLAG NO
[2024-06-26 15:21] LABS: Basophils Absolute Auto 0.1 X10*3/uL (0.0-0.2); Basophils Percent Auto 0.9 % (0-2); Eosinophils Absolute Auto 0.4 X10*3/uL (0.0-0.4); Eosinophils Percent Auto 4.9 % (0-4); Hematocrit 35.2 % (37.0-47.0); Hemoglobin 11.1 g/dl (12.0-16.0); Imm Gran Abs Auto 0.03 X10*3/uL (0.00-0.03); Imm Gran Pct Auto 0.4 % (0.0-0.4); Lymphocytes Percent Auto 27.1 % (20-40); Mean Corpuscular HGB Conc 31.5 g/dl (31.0-35.0); Mean Corpuscular Hemoglobin 26.9 pg (27.0-33.0); Mean Corpuscular Volume 85.4 fL (80.0-98.0); Mean Platelet Volume 10.4 fL (9.4-12.3); Monocytes Absolute Auto 0.5 X10*3/uL (0.1-1.2); Monocytes Percent Auto 6.1 % (2-11); Neutrophils Absolute Auto 4.5 x10*3/uL (2.0-8.3); Neutrophils Percent Auto 60.6 % (45-73); Platelet Count 229 X10*3/uL (160-400); Red Blood Count 4.12 X10*6/uL (4.20-5.50); Red Cell Distribution Width 14.6 % (11.0-16.0); White Blood Count 7.4 X10*3/uL (4.8-10.8)
[2024-06-26 15:29] LABS: INTERNATIONAL NORM RATIO 0.9 (0.9-1.1); Prothrombin Time 11.3 SEC (11.1-13.3)
[2024-06-26 15:31] LABS: Partial Thromboplastin Time 31.5 SEC (26.0-36.8)
[2024-06-26 15:34] LABS: Stroke Lab Use COMPLETE
[2024-06-26 15:36] LABS: Anion Gap 13 (12-20); Blood Urea Nitrogen 19 mg/dL (9-16); Calcium 9.6 mg/dL (8.4-10.2); Carbon Dioxide 28 mmol/L (22-29); Chloride 105 mmol/L (96-108); Cholesterol 130 mg/dL (<200); Estimated Glomerular Filt Rate > 60; Glucose Random 86 mg/dL (60-115); HDL Cholesterol 53 mg/dL (>40); LDL Cholesterol Calculated 45 mg/dL (<100); Potassium 4.4 mmol/L (3.3-5.1); Sodium 142 mmol/L (135-145); Triglycerides 161 mg/dL (<150)
[2024-06-26 15:45] LABS: Troponin-I High Sensitivity 722.5 ng/L (<3.5-17.0)
--- NOTE | 2024-06-26 15:50 | PC.NURSE ---
patient can not tolerate swallow exam, unable to adequately swallow small amount of water. unable to medicate patient per MAR
[2024-06-26 15:54] VITALS: BP 140/64; PULSE 58; RESP 15; O2SAT 96
[2024-06-26 16:40] LABS: COVID-19 Test Negative (Negative); IDNOW Serial# 58CA691E
[2024-06-26 17:02] VITALS: BP 147/57; PULSE 62; RESP 16; TEMP 36.3; O2SAT 97
[2024-06-26 20:25] VITALS: BP 147/57; PULSE 62; RESP 16; TEMP 36.3; O2SAT 97
== END 2024-06-26 18:04 | disposition short-term general hospital (02) ==
PROVIDERS: Physician Assistant; Emergency Provider Emergency Medicine; PCP Internal Medicine
DX: I63.9 Cerebral infarction, unspecified (principal); R29.810 Facial weakness; R20.0 Anesthesia of skin; R29.711 NIHSS score 11; I45.10 Unspecified right bundle-branch block; I10 Essential (primary) hypertension; E11.9 Type 2 diabetes mellitus without complications; E78.5 Hyperlipidemia, unspecified; E03.9 Hypothyroidism, unspecified; Z11.52 Encounter for screening for COVID-19; Z79.84 Long term (current) use of oral hypoglycemic drugs; Z87.891 Personal history of nicotine dependence; Z79.85 Long-term (current) use of injectable non-insulin antidiabetic drugs; Z79.899 Other long term (current) drug therapy
CPT/HCPCS: 36415; 70450; 70496; 70498; 80048; 80061; 82947; 84484; 85025; 85610; 85730; 87635; 93005; 99285; Q9967

== ENCOUNTER → 2024-06-26 14:24 | Outpatient (BNV) | payer MEDICARE, SELFPAY | PROVIDERS: Emergency Provider Emergency Medicine; PCP Internal Medicine; Visit Provider Internal Medicine Cardiovascular Disease | DX: I45.19 Other right bundle-branch block (principal); R94.31 Abnormal electrocardiogram [ECG] [EKG] | CPT/HCPCS: 93010 ==

== ENCOUNTER 2024-07-26 13:02 | Outpatient (AMB) | payer MEDICARE, SELFPAY ==
--- NOTE | 2024-07-26 13:06 | MHC.PC.OV ---
Vital Signs 07/26/24 13:07 Height 5 ft 1 in Weight 168 lb BMI 31.7 BP 116/56 L Blood Pressure Location Lt brachial Position Sitting Pulse 66 Pulse Source Pulse Oximeter Pulse Oximetry (%) 96 Oxygen Delivery Method Room Air Intake Visit Reasons: [facility] 07/22 Supervisor Plasma Required: No Allergies amoxicillin [Augmentin] Allergy (Unknown, Verified 07/26/24 13:10) hives clavulanic acid [Augmentin] Allergy (Unknown, Verified 07/26/24 13:10) hives furosemide Allergy (Unknown, Verified 07/26/24 13:10) unknown latex [LATEX] Allergy (Unknown, Verified 07/26/24 13:10) UNKNOWN lisinopril Allergy (Unknown, Verified 07/26/24 13:10) Unknown oxycodone [Percocet] Allergy (Unknown, Verified 07/26/24 13:10) Stomach upset tramadol Allergy (Unknown, Verified 07/26/24 13:10) Stomach uspet Medication List - Last Reconciled 07/27/24 by Allen Cortés MD apixaban (Eliquis) 5 mg PO BID aspirin 81 mg PO DAILY atorvastatin 80 mg PO BEDTIME atorvastatin 80 mg PO DAILY blood sugar diagnostic FREESTYLE LITE TEST STRIPS TO CHECK THREE TIMES A DAY blood-glucose meter (FreeStyle Lite Meter kit) As directed diclofenac sodium 1% 2 grams topical BID PRN ezetimibe 10 mg PO BEDTIME gabapentin 300 mg PO BEDTIME gabapentin 100 mg PO DAILY levothyroxine 112 mcg PO DAILY liraglutide 1.2 mg (0.2 mL) subcut DAILY 30 days losartan 12.5 mg PO DAILY metformin 1,000 mg PO BIDWM omeprazole 20 mg PO DAILY pen needle, diabetic (Novofine 32) As directed up to three times per day [Stair lift As directed] tramadol 50 mg PO Q6H PRN Tobacco use date assessed: 01/06/24 Fall risk assessment: No Falls in past year Last assessed Fall Risk: 07/26/24 Dental Screening Dental Screen Date: 01/29/24 HPI [facility] 07/22 HPI Details had a right MCA embolic cva; improved and now has some left arm and leg weakness but ambulating with a cane; going to [facility] Medical History Hypothyroidism Obesity Type 2 diabetes mellitus with morbid obesity Annual physical exam Vitamin D deficiency HLD (hyperlipidemia) T2DM (type 2 diabetes mellitus) Diabetes mellitus Hypertension Surgical History History of surgery History of colonoscopy History of appendectomy History of cholecystectomy S/P JOSIE (total abdominal hysterectomy) Family History Father Diabetes Mother CHF (congestive heart failure) CVD (cardiovascular disease) Brother HIV (human immunodeficiency virus infection) Social History Household Members: None Housing: Condominium Do you presently have visiting nurse or other home services: No Alcohol intake: never Patient Tobacco Use Status: Former Tobacco user Tobacco use type: Cigarette Years Smoked: 30 e-Cigarette/Vaping Use: Currently Using Second Hand Smoke Exposure: No Advance Directives Date on File: 12/15/23 service: No Current occupational status: retired Cognitive needs: No Hearing needs: No Vision needs: No Questionnaire PHQ-9 Over the last 2 weeks, how often have you been bothered by any of the following problems? 1. Little interest or pleasure in doing things: not at all 2. Feeling down, depressed, or hopeless: not at all 3. Trouble falling or staying asleep, or sleeping too much: not at all 4. Feeling tired or having little energy: not at all 5. Poor appetite or overeating: not at all 6. Feeling bad about yourself - or that you are a failure or have let yourself or your family down: not at all 7. Trouble concentrating on things, such as reading the newspaper or watching television: not at all 8. Moving or speaking so slowly that other people could have noticed. Or the opposite - being so fidgety or restless that you have been moving around a lot more than usual: not at all 9. Thoughts that you would be better off or of hurting yourself in some way: not at all Total score: 0 Depression Screening Interpretation: Negative Depression Screening Done: Yes Source: Developed by Drs. Mendez Sanz, Shannan Quintanilla, Fuentes Sales and colleagues, with an educational aurelia from [employer]. Thrive Questionnaire Date Thrive assessed: 12/12/23 AUDIT C Alcohol Use Questionnaire (AUDIT-C) 1. How often do you have a drink containing alcohol?: Never Total Score: 0 Score Reviewed/Action Taken: Yes ARSLAN-7 AMB Questionnaire ARSLAN-7 Date ARSLAN - 7 assessed: 01/06/24 Source: Developed by Drs. Mendez Sanz, Shannan Quintanilla, Fuentes Sales and colleagues, with an educational aurelia from [employer]. Review of Systems Const Denies chills, Denies headache(s) and Denies weight loss ENT Denies headache(s) Card Denies chest pain, Denies syncope, Denies irregular heart rhythm and Denies dyspnea Resp Denies chest congestion, Denies cough and Denies dyspnea GI Denies abdominal pain, Denies change in stool character, Denies nausea and Denies vomiting Musc Denies deformity and Denies joint swelling Neuro Denies syncope and Denies headache(s) Physical exam (Primary Care) Vital Signs: Last Vital Signs Pulse 66 07/26/24 13:07 BP 116/56 L 07/26/24 13:07 Pulse Ox 96 07/26/24 13:07 Oxygen Delivery Method Room Air 07/26/24 13:07 BMI result Body Mass Index 31.7 Tobacco/Smoking Status: Tobacco use Status Tobacco use date assessed 01/06/24 07/26/24 13:16 Patient Tobacco Use Status Former Tobacco user 07/26/24 13:16 Tobacco use type Cigarette 07/26/24 13:16 e-Cigarette/Vaping Use Currently Using 07/26/24 13:16 PHQ-9: PHQ-9 Score PHQ-9: Total score 0 07/26/24 13:40 Depression Screening Interpretation: Negative Thrive Assessment: Date of Thrive Assessment Date Thrive assessed 12/12/23 07/26/24 13:16 Const General: cooperative, comfortable, no acute distress and alert Neck Neck: Yes no lymphadenopathy Thyroid: Thyroid normal Resp Effort & Inspection: normal respiratory effort Auscultation: clear to auscultation bilaterally Percussion: percussion normal Cardio Jugular venous distension: no JVD Palpation: normal PMI Rate: regular rate Rhythm: regular rhythm Heart sounds: S1 normal heart sound present and S2 normal heart sound present GI Inspection: Yes normal to inspection Palpation (GI): No hepatosplenomegaly present Skin General skin exam: no rashes or lesions noted Extrem General: Yes no clubbing, cyanosis or edema Assessment and Plan Assessment & Plan (1) CVA (cerebral vascular accident): Code(s): I63.9 - Cerebral infarction, unspecified Plan: has referral to neuro; cont pt Orders: Referrals Neurology Referral I63.9 - Cerebral infarction, unspecified Medications: New omeprazole 20 mg PO DAILY 30 caps 3RF apixaban (Eliquis) 5 mg PO BID 60 tabs 4RF atorvastatin 80 mg PO DAILY 90 tabs 3RF Changed From atorvastatin 40 mg PO BEDTIME 90 tabs 0RF To atorvastatin 80 mg PO BEDTIME From losartan 25 mg PO DAILY 90 tabs 8RF 30 days To losartan 12.5 mg PO DAILY Coding Level of Care Code Est Pt Level 3 (84110) Diagnoses CVA (cerebral vascular accident) I63.9
[2024-07-26 13:07] VITALS: BP 116/56; PULSE 66; O2SAT 96; BMI 31.7
== END 2024-07-26 13:40 | disposition home or self-care (01) ==
PROVIDERS: PCP Internal Medicine; Visit Provider Internal Medicine
DX: R53.1 Weakness (principal)
CPT/HCPCS: 99213

== ENCOUNTER 2024-08-03 14:06 | Outpatient (AMB) | payer MEDICARE, SELFPAY ==
[2024-08-03 14:09] VITALS: BP 118/62; PULSE 78; BMI 32.1
--- NOTE | 2024-08-03 14:09 | A.OFFVIS_ITS ---
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/ [facility] ED fu/ stroke/ afib (NS) Allergies amoxicillin [Augmentin] Allergy (Unknown, Verified 08/03/24 14:33) hives clavulanic acid [Augmentin] Allergy (Unknown, Verified 08/03/24 14:33) hives furosemide Allergy (Unknown, Verified 08/03/24 14:33) unknown latex [LATEX] Allergy (Unknown, Verified 08/03/24 14:33) UNKNOWN lisinopril Allergy (Unknown, Verified 08/03/24 14:33) Unknown oxycodone [Percocet] Allergy (Unknown, Verified 08/03/24 14:33) Stomach upset tramadol Allergy (Unknown, Verified 08/03/24 14:33) Stomach uspet Medication List - Last Reconciled 08/03/24 by Renetta Bryan NP apixaban (Eliquis) 5 mg PO BID aspirin 81 mg PO DAILY atorvastatin 80 mg PO DAILY blood sugar diagnostic FREESTYLE LITE TEST STRIPS TO CHECK THREE TIMES A DAY blood-glucose meter (FreeStyle Lite Meter kit) As directed diclofenac sodium 1% 2 grams topical BID PRN ezetimibe 10 mg PO BEDTIME gabapentin 300 mg PO BEDTIME gabapentin 100 mg PO DAILY levothyroxine 112 mcg PO DAILY liraglutide 1.2 mg (0.2 mL) subcut DAILY 30 days losartan 12.5 mg PO DAILY metformin 1,000 mg PO BIDWM omeprazole 20 mg PO DAILY pen needle, diabetic (Novofine 32) As directed up to three times per day [Stair lift As directed] HPI Comments Details: 70-year-old female presents today as a new patient. She presents with her granddaughter. She presented to the emergency room on 06/26/2024 for acute left- sided weakness, changes in speech, facial droop. 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 She was then transferred to [facility] for possibility of thrombectomy. She was also noted to be in atrial fibrillation. She did have a stroke prior in November with etiology unknown as at that time she did not want to follow-up with cardiology and neurology. She denies any palpitations, bleeding concerns, syncope, or shortness of breath. She had one episode of dizziness. She reports she has been checking her blood pressures at home and they have been well controlled. She has a medical history of CVA, hypothyroidism, obesity, type 2 diabetes, hyperlipidemia, and hypertension. [facility] Medical History Atrial fibrillation Hypothyroidism Obesity Type 2 diabetes mellitus with morbid obesity Annual physical exam Vitamin D deficiency HLD (hyperlipidemia) T2DM (type 2 diabetes mellitus) Diabetes mellitus Hypertension Surgical History History of surgery History of colonoscopy History of appendectomy History of cholecystectomy S/P JOSIE (total abdominal hysterectomy) Family History Father Diabetes Mother CHF (congestive heart failure) CVD (cardiovascular disease) Brother HIV (human immunodeficiency virus infection) Social History Household Members: None [facility] Do you presently have visiting nurse or other home services: No Alcohol intake: never Patient Tobacco Use Status: Former Tobacco user Tobacco use type: Cigarette Years Smoked: 30 e-Cigarette/Vaping Use: Currently Using Second Hand Smoke Exposure: No Advance Directives Date on File: 12/15/23 service: No Current occupational status: retired Cognitive needs: No Hearing needs: No Vision needs: No Review of Systems Const Denies weakness ENT Denies dizziness Card Denies chest pain, Denies chest pain with activity, Denies syncope, Denies rapid heart rate, Denies pedal edema, Denies edema, Denies leg edema, Denies light headedness, Denies palpitations, Denies dyspnea, Denies dyspnea on exertion and Denies orthopnea Resp Denies cough, Denies dyspnea and Denies dyspnea on exertion GI Denies hematochezia and Denies change in stool character Musc Denies abnormal gait, Denies muscle cramps, Denies muscle weakness, Denies numbness, Denies radiating pain into limb and Denies tingling Neuro Denies abnormal gait, Denies dizziness, Denies syncope, Denies numbness, Denies tingling and Denies weakness Endo Denies palpitations Physical Exam Vital Signs: Last Vital Signs Pulse 78 08/03/24 14:09 BP 118/62 08/03/24 14:09 BMI result Body Mass Index 32.1 Const General: healthy appearing and no acute distress Orientation/consciousness: patient oriented x3 Limitations: ambulation with cane HEENT Head: Yes normal to inspection Eyes General: appearance normal, both eyes and all related structures Neck Neck: Yes normal visual inspection Chest Chest palpation & inspection: normal inspection of the chest Resp Effort & Inspection: normal respiratory effort Auscultation: clear to auscultation bilaterally Cardio Jugular venous distension: no JVD Palpation: normal PMI Rate: regular rate Rhythm: regular rhythm Heart sounds: S1 normal heart sound present, S2 normal heart sound present, no click, no gallops, no murmurs and no rubs GI Inspection: Yes normal to inspection Palpation (GI): Soft to palpation Skin General skin exam: no rashes or lesions noted Neuro General: patient oriented x3 Extrem General: Yes normal to inspection Psych Appearance: grossly normal Assessment & Plan Assessment & Plan (1) Atrial fibrillation: Code(s): I48.91 - Unspecified atrial fibrillation Category: Medical Plan: New onset atrial fibrillation at [facility]. No EKG from the stay. Will request. Per available records rate was controlled. She has had no symptoms of atrial fibrillation. Will do a holter to assess rate and rhythm. She was started on Eliquis 5mg BID and reports no bleeding issues. Signs of bleeding reviewed. Importance of anticoagulation with atrial fibrillation reviewed. Avoidance of stimulants discussed. Will order holter and sleep study. Echocardiogram at [facility] filled left ventricular systolic function is normal. Quantitative EF by biplane is 55%. Right ventricular systolic function is normal. No significant valvular disease. Left atrial cavity is moderately dilated. (2) CVA (cerebral vascular accident): Code(s): I63.9 - Cerebral infarction, unspecified Category: Medical Plan: CVA likely due to unknown atrial fibrillation. Seeing neurologist Dr. Lopez genao. (3) Hypertension: Code(s): I10 - Essential (primary) hypertension Category: Medical Qualifiers: Hypertension type: unspecified Qualified Code(s): I10 - Essential (primary) hypertension Plan: Blood pressure within range. On losartan 12.5 mg daily. (4) Type 2 diabetes mellitus with morbid obesity: Code(s): E11.69 - Type 2 diabetes mellitus with other specified complication; E66.01 - Morbid (severe) obesity due to excess calories Category: Medical Plan: A1C 6.5. Tight diabetes control discussed. Orders: Orders RT home sleep study 08/03/24 G47.10 - Hypersomnia, unspecified ECG 3 day holter monitor 08/03/24 I48.91 - Unspecified atrial fibrillation Coding Level of Care Code New Pt Level 4 (89249) Diagnoses Atrial fibrillation I48.91 CVA (cerebral vascular accident) I63.9 Hypertension, unspecified type I10 Hypertension type: unspecified Type 2 diabetes mellitus with morbid obesity E11.69; E66.01
== END 2024-08-03 14:53 | disposition home or self-care (01) ==
PROVIDERS: PCP Internal Medicine; Visit Provider Nurse Practitioner
DX: I48.91 Unspecified atrial fibrillation (principal); I63.9 Cerebral infarction, unspecified; I10 Essential (primary) hypertension; E11.69 Type 2 diabetes mellitus with other specified complication; E66.01 Morbid (severe) obesity due to excess calories
CPT/HCPCS: 99204

== ENCOUNTER → 2024-08-03 14:06 | Outpatient (BNVA) | payer MEDICARE, SELFPAY | PROVIDERS: PCP Internal Medicine; Visit Provider Nurse Practitioner | DX: I10 Essential (primary) hypertension (principal); I48.91 Unspecified atrial fibrillation; E78.5 Hyperlipidemia, unspecified; E11.69 Type 2 diabetes mellitus with other specified complication; E66.01 Morbid (severe) obesity due to excess calories; Z86.73 Personal history of transient ischemic attack (TIA), and cerebral infarction without residual deficits; Z68.32 Body mass index [BMI] 32.0-32.9, adult | CPT/HCPCS: 99202 ==

== ENCOUNTER 2024-08-11 13:23 | Outpatient (AMB) | payer MEDICARE, SELFPAY ==
--- NOTE | 2024-08-11 13:29 | MHC.PC.OV ---
Vital Signs 08/11/24 13:33 Height 5 ft 1 in Weight 164 lb 6 oz BMI 31.1 BP 140/60 H Blood Pressure Location Lt brachial Position Sitting Pulse 69 Pulse Source Pulse Oximeter Pulse Oximetry (%) 97 Oxygen Delivery Method Room Air Intake Visit Reasons: [facility] 08/16 vitrectomy Intake Note: Patient is here for a Pre-op for Vitrectomy scheduled with Dr Ana Laura Irwin([facility]) on 08/16/24. Chemical Educator Required: No Ward Attendant: Present Accompanied by: Daughter Allergies amoxicillin [Augmentin] Allergy (Unknown, Verified 08/11/24 14:08) hives clavulanic acid [Augmentin] Allergy (Unknown, Verified 08/11/24 14:08) hives furosemide Allergy (Unknown, Verified 08/11/24 14:08) unknown latex [LATEX] Allergy (Unknown, Verified 08/11/24 14:08) UNKNOWN lisinopril Allergy (Unknown, Verified 08/11/24 14:08) Unknown oxycodone [Percocet] Allergy (Unknown, Verified 08/11/24 14:08) Stomach upset tramadol Allergy (Unknown, Verified 08/11/24 14:08) Stomach uspet Medication List - Last Reconciled 08/11/24 by Trevor Rios MD apixaban (Eliquis) 5 mg PO BID aspirin 81 mg PO DAILY atorvastatin 80 mg PO DAILY blood sugar diagnostic FREESTYLE LITE TEST STRIPS TO CHECK THREE TIMES A DAY blood-glucose meter (FreeStyle Lite Meter kit) As directed diclofenac sodium 1% 2 grams topical BID PRN ezetimibe 10 mg PO BEDTIME gabapentin 300 mg PO BEDTIME gabapentin 100 mg PO DAILY levothyroxine 112 mcg PO DAILY liraglutide 1.2 mg (0.2 mL) subcut DAILY 30 days losartan 12.5 mg PO DAILY metformin 1,000 mg PO BIDWM omeprazole 20 mg PO DAILY pen needle, diabetic (Novofine 32) As directed up to three times per day [Stair lift As directed] Tobacco use date assessed: 08/11/24 Fall risk assessment: No Falls in past year Last assessed Fall Risk: 08/11/24 Dental Screening Dental Screen Date: 01/29/24 HPI [facility] 08/16 vitrectomy HPI Details 78-year-old female presents to the office for a preoperative clearance. I am the covering provider as her regular provider is away. 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 Six weeks ago patient suffered a stroke and has been diagnosed with atrial fibrillation. She recently started oral anticoagulation. Patient reports a week ago she had decrease in vision in the left eye. She was seen by her regular provider and the retinal surgeon who suggested the procedure. [facility] Medical History Atrial fibrillation Hypothyroidism Obesity Type 2 diabetes mellitus with morbid obesity Annual physical exam Vitamin D deficiency HLD (hyperlipidemia) T2DM (type 2 diabetes mellitus) Diabetes mellitus Hypertension Surgical History History of surgery History of colonoscopy History of appendectomy History of cholecystectomy S/P JOSIE (total abdominal hysterectomy) Family History Father Diabetes Mother CHF (congestive heart failure) CVD (cardiovascular disease) Brother HIV (human immunodeficiency virus infection) Social History Household Members: None Housing: Condominium Do you presently have visiting nurse or other home services: No Alcohol intake: never Patient Tobacco Use Status: Former Tobacco user Tobacco use type: Cigarette Years Smoked: 30 e-Cigarette/Vaping Use: Never Used Second Hand Smoke Exposure: No Advance Directives Date on File: 12/15/23 service: No Current occupational status: retired Cognitive needs: No Hearing needs: No Vision needs: No Questionnaire Thrive Questionnaire Date Thrive assessed: 12/12/23 Are you currently unemployed and looking for a job?: No ARSLAN-7 AMB Questionnaire ARSLAN-7 Date ARSLAN - 7 assessed: 01/06/24 Source: Developed by Drs. Mendez Sanz, Shannan Quintanilla, Fuentes Sales and colleagues, with an educational aurelia from [employer]. Review of Systems Const Reports chills, Reports fever(s) and Reports headache(s) Eyes Reports change in vision, Reports eye discharge and Reports irritation ENT Reports Normal hearing present, Reports bleeding gums, Reports ear discharge, Reports headache(s) and Reports hearing loss Resp Reports cough, Reports hemoptysis and Reports pain with cough GI Reports abdominal pain, Reports change in stool character and Reports excessive flatus Reports nipple discharge Musc Denies abnormal gait Skin/Breast Reports breast pain and Reports nipple discharge Neuro Reports Normal hearing present, Denies abnormal gait, Reports headache(s), Reports focal weakness and Reports seizure-like activity Psych Reports abnormal sleep pattern and Reports panic attacks Physical exam (Primary Care) Vital Signs: Last Vital Signs Pulse 69 08/11/24 13:33 BP 140/60 H 08/11/24 13:33 Pulse Ox 97 08/11/24 13:33 Oxygen Delivery Method Room Air 08/11/24 13:33 BMI result Body Mass Index 31.1 Tobacco/Smoking Status: Tobacco use Status Tobacco use date assessed 08/11/24 08/11/24 13:37 Patient Tobacco Use Status Former Tobacco user 08/11/24 13:30 Tobacco use type Cigarette 08/11/24 13:30 e-Cigarette/Vaping Use Never Used 08/11/24 13:37 Thrive Assessment: Date of Thrive Assessment Date Thrive assessed 12/12/23 08/11/24 13:30 Const General: cooperative, healthy appearing and comfortable HENMT Head: Yes normal to inspection and Yes atraumatic Eyes General: appearance normal, both eyes and all related structures Neck Neck: Yes normal visual inspection and Yes full ROM Chest Chest palpation & inspection: normal inspection of the chest and crepitus Resp Effort & Inspection: normal respiratory effort Auscultation: clear to auscultation bilaterally Cardio Jugular venous distension: no JVD Palpation: normal PMI Rate: regular rate Heart sounds: S1 normal heart sound present and S2 normal heart sound present GI Palpation (GI): Soft to palpation, Tenderness to palpation present (GI) and No hepatosplenomegaly present Neuro Cranial nerves: Yes Normal hearing present Extrem General: Yes normal to inspection and Yes full ROM Results AMB Hemoglobin A1c AMB Hemoglobin A1c 6.4 % Last Edit by REYNA Mijares on 08/11/24 13:55 Results Reviewed Results Reviewed: Laboratory Last Values Hgb A1c (Clinic) 6.4 % (4.0-6.0) H 08/11/24 13:40 Assessment and Plan Assessment & Plan (1) Atrial fibrillation: Code(s): I48.91 - Unspecified atrial fibrillation Plan: Patient continues to have atrial fibrillation, rate is well controlled and on oral anticoagulation. (2) Preoperative clearance: Code(s): Z01.818 - Encounter for other preprocedural examination Plan: Patient has not been cleared for surgery. A phone call to the surgeon was made and I am waiting for her to call me back. I would like to know the urgency of the procedure as anticoagulation was just started 6 weeks ago. Also, the data provided to me in terms of labs and EKG are from more than a month ago. I am not very sure if this is an urgent or elective procedure. If this is an elective procedure, I would recommend that we wait another month. Orders: Orders AMB Hemoglobin A1c Today E11.69 - Type 2 diabetes mellitus with other specified complication, E66.01 - Morbid (severe) obesity due to excess calories Coding Level of Care Code Est Pt Level 4 (53068) Complex EM visit Add On G2211 Diagnoses Atrial fibrillation I48.91 Preoperative clearance Z01.818
[2024-08-11 13:33] VITALS: BP 140/60; PULSE 69; O2SAT 97; BMI 31.1
== END 2024-08-11 14:08 | disposition home or self-care (01) ==
PROVIDERS: PCP Internal Medicine; Visit Provider Internal Medicine
DX: I48.91 Unspecified atrial fibrillation (principal); E11.69 Type 2 diabetes mellitus with other specified complication; E66.01 Morbid (severe) obesity due to excess calories; Z68.31 Body mass index [BMI] 31.0-31.9, adult; Z01.818 Encounter for other preprocedural examination

== ENCOUNTER → 2024-08-11 13:23 | Outpatient (BNVA) | payer MEDICARE, SELFPAY | PROVIDERS: PCP Internal Medicine; Visit Provider Internal Medicine | DX: Z01.818 Encounter for other preprocedural examination (principal); E11.69 Type 2 diabetes mellitus with other specified complication; I48.91 Unspecified atrial fibrillation | CPT/HCPCS: 83036; 99212 ==

== ENCOUNTER 2024-08-24 10:06 | Outpatient (AMB) | payer MEDICARE, SELFPAY ==
--- NOTE | 2024-08-24 10:07 | A.OFFPC_ITS ---
Vital Signs 08/24/24 10:09 Height 5 ft 1 in Weight 172 lb BMI 32.5 BP 140/62 H Blood Pressure Location Lt brachial Position Sitting Pulse 76 Pulse Source Pulse Oximeter Pulse Oximetry (%) 97 Oxygen Delivery Method Room Air Intake Visit Reasons: 6 week f/u Intake Note: Patient is here to follow up on CVA, Afib. Instructional Technology Coach Required: No Tannery Gummer: Present Accompanied by: Grand Child Allergies amoxicillin [Augmentin] Allergy (Unknown, Verified 08/29/24 15:45) hives clavulanic acid [Augmentin] Allergy (Unknown, Verified 08/29/24 15:45) hives furosemide Allergy (Unknown, Verified 08/29/24 15:45) unknown latex [LATEX] Allergy (Unknown, Verified 08/29/24 15:45) UNKNOWN lisinopril Allergy (Unknown, Verified 08/29/24 15:45) Unknown oxycodone [Percocet] Allergy (Unknown, Verified 08/29/24 15:45) Stomach upset tramadol Allergy (Unknown, Verified 08/29/24 15:45) Stomach uspet Medication List - Last Reconciled 08/29/24 by Trevor Rios MD apixaban (Eliquis) 5 mg PO BID aspirin 81 mg PO DAILY atorvastatin 80 mg PO DAILY blood sugar diagnostic FREESTYLE LITE TEST STRIPS TO CHECK THREE TIMES A DAY blood-glucose meter (FreeStyle Lite Meter kit) As directed diclofenac sodium 1% 2 grams topical BID PRN ezetimibe 10 mg PO BEDTIME gabapentin 300 mg PO BEDTIME gabapentin 100 mg PO DAILY levothyroxine 112 mcg PO DAILY liraglutide 1.2 mg (0.2 mL) subcut DAILY 30 days losartan 12.5 mg PO DAILY metformin 1,000 mg PO BIDWM ofloxacin 0.3% 1 drp ophthalmic (eye) QID omeprazole 20 mg PO DAILY pen needle, diabetic (Novofine 32) As directed up to three times per day prednisolone acetate 1% 1 drp ophthalmic (eye) QID [Stair lift As directed] Tobacco use date assessed: 08/24/24 Fall risk assessment: No Falls in past year Last assessed Fall Risk: 08/24/24 Dental Screening Dental Screen Date: 01/29/24 HPI 6 week f/u HPI Details 78-year-old female presents to the offic e to discuss her chronic medical conditions. Patient has transferred her medical care to ar. Since last office visit, patient underwent the retina surgery. There has not been much improvement in vision. Patient continues to have burning sensation and feeling of numbness in the tips of her fingers. Symptoms are not present in the foot. Able to function and do activities of daily living. [facility] Medical History Atrial fibrillation Hypothyroidism Obesity Type 2 diabetes mellitus with morbid obesity Annual physical exam Vitamin D deficiency HLD (hyperlipidemia) T2DM (type 2 diabetes mellitus) Diabetes mellitus Hypertension Surgical History History of vitrectomy History of surgery History of colonoscopy History of appendectomy History of cholecystectomy S/P JOSIE (total abdominal hysterectomy) Family History Father Diabetes Mother CHF (congestive heart failure) CVD (cardiovascular disease) Brother HIV (human immunodeficiency virus infection) Social History Household Members: None Housing: Condominium Do you presently have visiting nurse or other home services: No Alcohol intake: never Patient Tobacco Use Status: Former Tobacco user Tobacco use type: Cigarette Years Smoked: 30 e-Cigarette/Vaping Use: Never Used Second Hand Smoke Exposure: No Advance Directives Date on File: 12/15/23 service: No Current occupational status: retired Cognitive needs: No Hearing needs: No Vision needs: No Questionnaire Thrive Questionnaire Date Thrive assessed: 12/12/23 Are you currently unemployed and looking for a job?: No ARSLAN-7 AMB Questionnaire ARSLAN-7 Date ARSLAN - 7 assessed: 01/06/24 Source: Developed by Drs. Mendez Sanz, Shannan Quintanilla, Fuentes Sales and colleagues, with an educational aurelia from [employer]. Physical exam (Primary Care) Vital Signs: Last Vital Signs Pulse 76 08/24/24 10:09 BP 140/62 H 08/24/24 10:09 Pulse Ox 97 08/24/24 10:09 Oxygen Delivery Method Room Air 08/24/24 10:09 Care Plan Goal for BP management: Blood pressure is in range. BMI result Body Mass Index 32.5 BMI Assessment/Plan discussion: High (Patient was encouraged to increase her physical activity.) BMI High, discussed plan: lifestyle, weight reduction, dietary and physical activity Tobacco/Smoking Status: Tobacco use Status Tobacco use date assessed 08/24/24 08/24/24 10:08 Patient Tobacco Use Status Former Tobacco user 08/24/24 10:08 Tobacco use type Cigarette 08/24/24 10:08 e-Cigarette/Vaping Use Never Used 08/24/24 10:08 Thrive Assessment: Date of Thrive Assessment Date Thrive assessed 12/12/23 08/24/24 10:08 Const General: cooperative and healthy appearing Nutritional Appearance: well nourished Orientation/consciousness: patient oriented x3 Limitations: no limitations HENMT Head: Yes normal to inspection Eyes General: appearance normal, both eyes and all related structures Neck Neck: Yes normal visual inspection Chest Chest palpation & inspection: normal palpation of entire chest wall Resp Effort & Inspection: normal respiratory effort Neuro General: patient oriented x3 Office Procedures Flu Questionnaire Does the patient have a severe egg allergy?: No Does the patient have severe life threatening allergies?: No Does the patient have a fever or illness today?: No Has the patient ever had Guillain-[place] Syndrome?: No Has the patient ever had any past reaction to a flu shot?: No Immunizations Fluarix Triv [id number] (PF) 45 mcg (15 mcg x 3)/0.5 mL IM syringe Performing Provider: Trevor Rios MD [facility] [place] [facility] Administered by: Gayathri Reddy LPN on 08/24/24 11:39 Dose Route Admin Location Dispensed Lot Number Expiration Date [facility] [employer] 0.5 mL IM Left Deltoid 0.5 mL [id number] 05/22/25 [id number] [employer] VIS Given Date VIS Provided VIS Publication Date 08/24/24 Single Vaccine 21 Eligibility Eligibility Date Funding Source Not [facility] Eligible 08/24/24 Private Coding Level of Care Code Est Pt Level 4 (63933) Complex EM visit Add On G2211 Diagnoses CVA (cerebral vascular accident) I63.9 Atrial fibrillation I48.91 Carpal tunnel syndrome G56.00 Type 2 diabetes mellitus with hyperglycemia, with long-term current use of insulin E11.65; Z79.4 Diabetes mellitus exterminator termite insulin use: with care home use Diabetes mellitus complication status: with hyperglycemia Obesity E66.9 Assessment & Plan Assessment & Plan (1) CVA (cerebral vascular accident): Code(s): I63.9 - Cerebral infarction, unspecified Category: Medical Plan: Condition is stable. (2) Atrial fibrillation: Code(s): I48.91 - Unspecified atrial fibrillation Category: Medical Plan: Rate well controlled. Continue anticoagulation. (3) Carpal tunnel syndrome: Code(s): G56.00 - Carpal tunnel syndrome, unspecified upper limb Category: Medical Plan: Some of her tingling sensation in the fingers could be attributed to carpal tunnel. As the Neurontin is not helping, I suggest discontinuation of the medication. (4) T2DM (type 2 diabetes mellitus): Code(s): E11.9 - Type 2 diabetes mellitus without complications Category: Medical Qualifiers: Diabetes mellitus care home insulin use: with exterminator termite use Diabetes mellitus complication status: with hyperglycemia Qualified Code(s): E11.65 - Type 2 diabetes mellitus with hyperglycemia; Z79.4 - assisted (current) use of insulin Plan: Continue diabetic medications at same dosage. (5) Obesity: Code(s): E66.9 - Obesity, unspecified Category: Medical Plan: Patient was encouraged to exercise and check blood sugars frequently. Orders: Orders Influenza [id number] Immunization 08/24/24 Z23 - Encounter for immunization
[2024-08-24 10:09] VITALS: BP 140/62; PULSE 76; O2SAT 97; BMI 32.5
== END 2024-08-24 10:52 | disposition home or self-care (01) ==
PROVIDERS: PCP Internal Medicine; Visit Provider Internal Medicine
DX: I48.91 Unspecified atrial fibrillation (principal); E11.65 Type 2 diabetes mellitus with hyperglycemia; Z79.4 Long term (current) use of insulin; Z86.73 Personal history of transient ischemic attack (TIA), and cerebral infarction without residual deficits; G56.00 Carpal tunnel syndrome, unspecified upper limb; E66.9 Obesity, unspecified

== ENCOUNTER → 2024-08-24 10:06 | Outpatient (BNVA) | payer MEDICARE, SELFPAY | PROVIDERS: PCP Internal Medicine; Visit Provider Internal Medicine | DX: Z23 Encounter for immunization (principal); I63.9 Cerebral infarction, unspecified; E11.65 Type 2 diabetes mellitus with hyperglycemia; I48.91 Unspecified atrial fibrillation; G56.00 Carpal tunnel syndrome, unspecified upper limb; E66.9 Obesity, unspecified; Z79.4 Long term (current) use of insulin | CPT/HCPCS: 90471; 90656; 99212 ==

== ENCOUNTER → 2024-09-21 11:33 | Outpatient (REF) | payer MEDICARE, SELFPAY ==
--- NOTE | 2024-09-21 11:38 | HM_ITS ---
Conclusion: 1. Patient was monitored for total period of 2 days and 23 hours 2. Baseline was normal sinus rhythm with average heart of 77 beats per minute. 3. Paroxysmal episodes of atrial fibrillation/flutter noted lasted for 17 hours and 42 minutes with fastest heart rate heart rate of 51 beats per minute with a total burden of 35% 4. Frequent PVCs noted with total burden of 2.8% 5. Frequent PACs noted with total burden of 1.9% 6. No patient reported events MTDD
== END ==
LOC: HO.CARD 11:33
PROVIDERS: PCP Internal Medicine; Visit Provider Nurse Practitioner
DX: I48.91 Unspecified atrial fibrillation (principal); G47.10 Hypersomnia, unspecified
CPT/HCPCS: 93242

== ENCOUNTER → 2024-09-21 11:38 | Outpatient (BNV) | payer MEDICARE, SELFPAY | PROVIDERS: PCP Internal Medicine; Visit Provider Internal Medicine Cardiovascular Disease | DX: I48.0 Paroxysmal atrial fibrillation (principal); I49.3 Ventricular premature depolarization; I49.1 Atrial premature depolarization | CPT/HCPCS: 93244 ==

== ENCOUNTER 2024-10-26 14:31 | Outpatient (AMB) | payer MEDICARE, SELFPAY ==
[2024-10-26 14:33] VITALS: BP 132/62; PULSE 64; BMI 30.4
--- NOTE | 2024-10-26 14:33 | A.OFFVIS_ITS ---
Vital Signs 10/26/24 14:33 Height 5 ft 1 in Weight 160 lb 14.999 oz BMI 30.4 BP 132/62 Blood Pressure Location Lt brachial Position Sitting Pulse 64 Pulse Source Pulse Oximeter Intake Visit Reasons: follow-up after testing Accompanied by: Grand Child Allergies amoxicillin [Augmentin] Allergy (Unknown, Verified 08/29/24 15:45) hives clavulanic acid [Augmentin] Allergy (Unknown, Verified 08/29/24 15:45) hives furosemide Allergy (Unknown, Verified 08/29/24 15:45) unknown latex [LATEX] Allergy (Unknown, Verified 08/29/24 15:45) UNKNOWN lisinopril Allergy (Unknown, Verified 08/29/24 15:45) Unknown oxycodone [Percocet] Allergy (Unknown, Verified 08/29/24 15:45) Stomach upset tramadol Allergy (Unknown, Verified 08/29/24 15:45) Stomach uspet Medication List - Last Reconciled 10/26/24 by Ruiz Sahu MD apixaban (Eliquis) 5 mg PO BID aspirin 81 mg PO DAILY atorvastatin 80 mg PO DAILY blood sugar diagnostic FREESTYLE LITE TEST STRIPS TO CHECK THREE TIMES A DAY blood-glucose meter (FreeStyle Lite Meter kit) As directed diclofenac sodium 1% 2 grams topical BID PRN ezetimibe 10 mg PO BEDTIME gabapentin 300 mg PO BEDTIME levothyroxine 112 mcg PO DAILY liraglutide 1.2 mg (0.2 mL) subcut DAILY 30 days losartan 12.5 mg PO DAILY metformin 1,000 mg PO BIDWM omeprazole 20 mg PO DAILY pen needle, diabetic (Novofine 32) As directed up to three times per day [Stair lift As directed] HPI Comments Details: Naty comes for follow-up, accompanied by her granddaughter who is a nurse practitioner an excellent advocate for health. Patient has had no new cardiac symptoms. Says feels cold on Eliquis therapy. Although she has no obvious symptoms of atrial fibrillation. She had a Holter monitor which showed frequent burden of atrial fibrillation about 33%. She denies any symptoms of palpitation. Denies any symptoms of shortness of breath. Since the stroke granddaughter notices mild cognitive dysfunction. Otherwise she has significant improvement overall weakness in her left arm and left leg. No lightheadedness, syncope. No obvious bleeding issues or neurologic events. [facility] Medical History (Updated 10/26/24 @ 15:43 by Ruiz Sahu MD) Atrial fibrillation Hypothyroidism Obesity Type 2 diabetes mellitus with morbid obesity Annual physical exam Vitamin D deficiency HLD (hyperlipidemia) T2DM (type 2 diabetes mellitus) Diabetes mellitus Hypertension Surgical History History of vitrectomy History of surgery History of colonoscopy History of appendectomy History of cholecystectomy S/P JOSIE (total abdominal hysterectomy) Family History Father Diabetes Mother CHF (congestive heart failure) CVD (cardiovascular disease) Brother HIV (human immunodeficiency virus infection) Social History Household Members: None Housing: Condominium Do you presently have visiting nurse or other home services: No Alcohol intake: never Patient Tobacco Use Status: Former Tobacco user Tobacco use type: Cigarette Years Smoked: 30 e-Cigarette/Vaping Use: Never Used Second Hand Smoke Exposure: No Advance Directives Date on File: 12/15/23 service: No Current occupational status: retired Cognitive needs: No Hearing needs: No Vision needs: No Review of Systems Const Denies weakness ENT Denies dizziness Card Denies chest pain, Denies chest pain with activity, Denies syncope, Denies rapid heart rate, Denies pedal edema, Denies edema, Denies leg edema, Denies lightheadedness, Denies palpitations, Denies dyspnea, Denies dyspnea on exertion and Denies orthopnea Resp Denies cough, Denies dyspnea and Denies dyspnea on exertion GI Denies hematochezia and Denies change in stool character Musc Denies abnormal gait, Denies muscle cramps, Denies muscle weakness, Denies numbness, Denies radiating pain into limb and Denies tingling Neuro Denies abnormal gait, Denies dizziness, Denies syncope, Denies numbness, Denies tingling and Denies weakness Endo Denies palpitations Physical Exam Vital Signs: Last Vital Signs Pulse 64 10/26/24 14:33 BP 132/62 10/26/24 14:33 BMI result Body Mass Index 30.4 Const General: healthy appearing and no acute distress Orientation/consciousness: patient oriented x3 Limitations: ambulation with cane HEENT Head: Yes normal to inspection Eyes General: appearance normal, both eyes and all related structures Neck Neck: Yes normal visual inspection Chest Chest palpation & inspection: normal inspection of the chest Resp Effort & Inspection: normal respiratory effort Auscultation: clear to auscultation bilaterally Cardio Jugular venous distension: no JVD Palpation: normal PMI Rate: regular rate Rhythm: regular rhythm Heart sounds: S1 normal heart sound present, S2 normal heart sound present, no click, no gallops, no murmurs and no rubs GI Inspection: Yes normal to inspection Palpation (GI): Soft to palpation Skin General skin exam: no rashes or lesions noted Neuro General: patient oriented x3 Extrem General: Yes normal to inspection Psych Appearance: grossly normal Assessment & Plan Assessment & Plan (1) Paroxysmal atrial fibrillation: Code(s): I48.0 - Paroxysmal atrial fibrillation Category: Medical Plan: Paroxysmal atrial fibrillation without any obvious symptoms including on a recent Holter monitor which showed high burden. Although this was a small snippet in time. Overall burden of atrial fibrillation is unclear. She has no symptoms during these episodes of atrial fibrillation and this was only incidentally detected when she presented with a neurologic symptoms of stroke. She is at extremely high risk for stroke and this was discussed with her. I strongly encouraged her to continue with oral anticoagulation therapy, Eliquis 5 mg b.i.d. is adequate therapy. I would discontinue aspirin therapy to reduce bleeding risk overall. However like to know her actual burden of atrial fibrillation have recommended her to wear smart wrist device that can detect for irregular heartbeat and we can actually determine total burden of atrial fibrillation over a long period of time. She does have frequent burden of atrial fibrillation can consider antiarrhythmic drug therapy to maintain rhythm. This was discussed with her and her granddaughter. Avoidance of stimulants was discussed. (2) Hypertension: Code(s): I10 - Essential (primary) hypertension Category: Medical Qualifiers: Hypertension type: unspecified Qualified Code(s): I10 - Essential (primary) hypertension Plan: Hypertension which is currently well optimized. Advised to monitor blood pressure at home maintain a log. Goal blood pressure less than 130/84. Continue aggressive diabetes management goal hemoglobin A1c less than 7%. Statin therapy to target goal LDL less than 70 mg/dL. Follow up in the clinic in 6 months time, sooner p.r.n.. Thank you for allowing me to partake in his care Medications: Discontinued aspirin Discontinued Reason: Doctor's Order 81 mg PO DAILY 30 tabs 2RF Coding Level of Care Code Est Pt Level 4 (44052) Complex EM visit Add On G2211 Diagnoses Paroxysmal atrial fibrillation I48.0 Hypertension, unspecified type I10 Hypertension type: unspecified
--- OUTSIDE RECORDS SUMMARY | 2024-11-01 20:49 | XMS_ITS ---
Author Organization [facility] Address [address] [place] [id number] Care Team Providers Care Cat Skinner Name Role Phone Milana NATARAJAN, Allen Primary Care Provider Desire Arias [phone] Encounters Encounter Location Date Provider Diagnosis [address] [address] 07/13/2024 Desire Ashford Plan Of Treatment No Information Progress Notes * Naty CERVANTES LDOB: [birth year] (78 yo F)Acc No.[id number]:07/13/2024 Progress Note Patient:?Naty CERVANTES Provider:?Desire Ashford DPM :1945???Age:78 Y???Sex:Female D ate:07/13/2024 Address:[address] [place], [place] [id number] Pcp:Allen Cortés MD Subjective: * Chief Complaints: * ??? * Medical History:? Objective: * Vitals:? Assessment: Plan: * Treatment: * Images: * The named appointment provid er may or may not be the originator of this progress note, and it is not deemed complete until electronically signed by the appointment provider. Sign off status: Pending * Provider:?Desire Ashford DPM Date:? Generated for Printi ng/Falesterg/eTransmitting on:?11/01/2024 08:49 PM EST
--- OUTSIDE RECORDS SUMMARY | 2024-11-01 20:50 | XMS_ITS ---
Author Organization [facility] Address [address] [place] [address] Care Team Providers Care Hotel Service Manager Name Role Phone Allen Cortés MD Primary Care Provider Desire Arias [phone] REASON FOR VISIT cx 07/13 appt Encounters Encounter Location Date Provider Diagnosis [address] [address] 07/11/2024 Desire Ashford Plan Of Treatment No Information Progress Notes * ORENNaty DRIVER LDOB: [birth year] (78 yo F)Acc No.[id number]:07/11/2024 Patient:?Naty Cervantes :1945???Age:78 Y???Sex:Female Address:[address] [place] [address], [address] * true * Date:? Generated for Printi ng/Falesterg/eTransmitting on:?11/01/2024 08:49 PM EST
--- OUTSIDE RECORDS SUMMARY | 2024-11-01 20:50 | XMS_ITS ---
Author Name [facility] Organization Unknown Results Test Name/Text Value Interpretation Date Range Source Calcium SerPl-mCnc 8.9mg/dL Normal [id number] 8.7 - 10 .5 H[facility] BUN SerPl-mCnc 12mg/dL Normal [id number] 8 - 21 HH CCT Creat SerPl-mCnc 0.8mg/dL Normal [id number] 0.4 - 1.1 HHCCT GFR/BSA.pred SerPlBld BMS-MXN-PfXZut 75 Normal [id number] 59 - H[facility]CT Chloride SerPl-sCnc 104mmol/L Normal [id number] 98 - 10 7 H[facility]CT BUN/Creat SerPl 15Ratio Normal [id number] 10 - 25 H HCCT CO2 SerPl-sCnc 23mmol/L Normal [id number] 22 - 33 HH CCT Anion Gap Bld-sCnc 13 Normal [id number] 7 - 17 [facility] Potassium SerPl-sCnc 4.3mmol/L Normal [id number] 3.4 - 5.3 [facility] Glucose SerPl-mCnc 179mg/dL Above high normal [id number] 65 - 99 [facility]CT Sodium SerPl-sCnc 140mmol/L Normal [id number] 136 - 145 H[facility]CT Magnesium SerPl-mCnc 1.6mg/dL Normal [id number] 1.6 - 2.7 H[facility]CT Phosphate SerPl-mCnc 3.7mg/dL Normal [id number] 2.7 - 4.5 H[facility] RBC num Bld Auto 4.27Mil/uL Normal [id number] 4 - 5.4 H[facility]CT RDW RBC Auto-Rto 14.6% Above high normal [id number] 11 .5 - 14.5 H[facility] PMV Bld Auto 11.9fL Normal [id number] 7.5 - 12.[address] MCH RBC Qn Auto 26.5pg Below low normal [id number] 27 - 31 H[facility] WBC num Bld Auto 7.9Thou/uL Normal [id number] 4 - 11 [facility] Platelet num Bld Auto 201Thou/uL Normal [id number] 150 - 450 H[facility]CT MCHC RBC Auto-mCnc 31.1g/dL Normal [id number] 30 - 36 H[facility]CT Hct VFr Bld Auto 36.3% Normal [id number] 35 - 47 H[facility]CT MCV RBC Auto 85fL Normal [id number] 80 - 100 HHCC T Hgb Bld-mCnc 11.3g/dL Below low normal [id number] 11.7 - 15.7 HHCCT POC Glucose 124mg/dL Above high normal [id number] 65 - 99 H[facility]CT POC Glucose 155mg/dL Above high normal [id number] 65 - 99 H[facility] POC Glucose 161mg/dL Above high normal [id number] 65 - 99 H[facility]CT POC Glucose 122mg/dL Above high normal [id number] 65 - 99 H[facility]CT POC Glucose 138mg/dL Above high normal [id number] 65 - 99 H[facility]CT Prealb SerPl-mCnc 24mg/dL Normal [id number] 20 - 40 H[facility]CT Transferrin SerPl-mCnc 247mg/dL Normal [id number] 200 - 360 H[facility]CT Magnesium SerPl-mCnc 1.5mg/dL Below low normal [id number] 1.6 - 2.7 HHCCT Phosphate SerPl-mCnc 4.1mg/dL Normal [id number] 2.7 - 4.5 HHCCT Calcium SerPl-mCnc 8.5mg/dL Below low normal [id number] 8 .7 - 10.5 HHCCT BUN SerPl-mCnc 14mg/dL Normal [id number] 8 - 21 HH CCT Creat SerPl-mCnc 0.9mg/dL Normal [id number] 0.4 - 1.1 HHCCT GFR/BSA.pred SerPlBld UIO-PGW-KwHGkr 65 Normal [id number] 59 - HHCCT Chloride SerPl-sCnc 105mmol/L Normal [id number] 98 - 10 7 H[facility]CT BUN/Creat SerPl 16Ratio Normal [id number] 10 - 25 H HCCT CO2 SerPl-sCnc 25mmol/L Normal [id number] 22 - 33 HH CCT Anion Gap Bld-sCnc 10 Normal [id number] 7 - 17 HHCCT Potassium SerPl-sCnc 3.8mmol/L Normal [id number] 3.4 - 5.3 HHCCT Glucose SerPl-mCnc 131mg/dL Above high normal [id number] 65 - 99 HHCCT Sodium SerPl-sCnc 140mmol/L Normal [id number] 136 - 145 HHCCT RBC num Bld Auto 4Mil/uL Normal [id number] 4 - 5.4 HHCCT RDW RBC Auto-Rto 14.7% Above high normal [id number] 11 .5 - 14.5 HHCCT PMV Bld Auto 10.9fL Normal [id number] 7.5 - 12.[address] MCH RBC Qn Auto 27pg Normal [id number] 27 - 31 H HCCT WBC num Bld Auto 6.7Thou/uL Normal [id number] 4 - 11 [facility]CT Platelet num Bld Auto 201Thou/uL Normal [id number] 150 - 450 HHCCT MCHC RBC Auto-mCnc 31.2g/dL Normal [id number] 30 - 36 HHCCT Hct VFr Bld Auto 34.6% Below low normal [id number] 35 - 47 HHCCT MCV RBC Auto 87fL Normal [id number] 80 - 100 HHCC T Hgb Bld-mCnc 10.8g/dL Below low normal [id number] 11.7 - 15.7 HHCCT Ca-I SerPl-mCnc 1.14mmol/L Below low normal [id number] 1.1 7 - 1.33 HHCCT POC Glucose 137mg/dL Above high normal [id number] 65 - 99 HHCCT POC Glucose 127mg/dL Above high normal [id number] - 99 [facility]CT POC Glucose 135mg/dL Above high normal [id number] 65 - 99 H[facility]CT POC Glucose 165mg/dL Above high normal [id number] 65 - 99 H[facility]CT FLUAV RNA Nph Ql Non-probe PCR Normal [id number] HHCCT HPIV2 RNA Nph Ql Non-probe PCR Normal [id number] CCT B pert tox prom reg Nph Ql Non-probe PCR Normal [id number] [facility] HCoV 229E RNA Nph Ql Non-probe PCR Normal [id number] [facility] HCoV OC43 RNA Nph Ql Non-probe PCR Normal [id number] [facility] FLUBV RNA Nph Ql Non-probe PCR Normal [id number] [facility] HPIV1 RNA Nph Ql Non-probe PCR Normal [id number] CCT 2019-nCOV RNA Normal [id number] [facility] CT M pneumo DNA Nph Ql Non-probe PCR Normal [id number] CCT Bordetella parapertussis Normal [id number] [facility] hMPV RNA Nph Ql Non-probe PCR Normal [id number] [facility] HCoV HKU1 RNA Nph Ql Non-probe PCR Normal [id number] [facility] HAdV DNA Nph Ql Non-probe PCR Normal [id number] [facility] C pneum DNA Nph Ql Non-probe PCR Normal [id number] [facility] RV+EV RNA Nph Ql Non-probe PCR Normal [id number] [facility] HPIV4 RNA Nph Ql Non-probe PCR Normal [id number] [facility] HCoV NL63 RNA Nph Ql Non-probe PCR Normal [id number] [facility] HPIV3 RNA Nph Ql Non-probe PCR Normal [id number] [facility] RSV RNA Nph Ql Non-probe PCR Normal [id number] [facility] POC Glucose 104mg/dL Above high normal [id number] 65 - 99 H[facility]CT RBC num/area UrnS HPF 4perhpf Normal [id number] 0 - 4 HHCCT Ketones Ur Strip-mCnc Abnormal [id number] - HHCCT Prot Ur Strip-mCnc Abnormal [id number] - HHCCT WBC num/area UrnS HPF 6perhpf Above high normal [id number] 0 - 4 [facility]CT Leukocyte esterase Ur Ql Strip Abnormal [id number] - HHCCT Color Ur Normal [id number] HHCCT pH Ur Strip 5 Normal [id number] 5 - 8 HHCCT Sp Gr Ur Strip 1.04 Above high normal [id number] 1 .003 - 1.03 HHCCT Nitrite Ur Ql Strip Normal [id number] - HHCCT Glucose Ur Strip-mCnc 0mg/dL Normal [id number] 0 - 99 HHCCT Hgb Ur Ql Strip Abnormal [id number] - H HCCT Bilirub Ur Strip-mCnc Normal [id number] - HHCCT Clarity Ur Normal [id number] HHCCT LDLc SerPl Calc-mCnc 49mg/dL Normal [id number] - 130 HHCCT Trigl SerPl-mCnc 169mg/dL Above high normal [id number] - 150 HHCCT HDLc SerPl-mCnc 58mg/dL Normal [id number] 39 - H HCCT Cholest SerPl-mCnc 141mg/dL Normal [id number] - 200 HHCCT HDLc SerPl 2.4Ratio Normal [id number] 0 - 5 HHCCT Hgb A1c MFr Bld 7% Above high normal [id number] - 5 .7 H[facility]CT Est. average glucose Bld gHb Est-mCnc 154mg/dL Normal [id number] [facility] POC Glucose 92mg/dL Normal [id number] 65 - 99 H[facility]CT POC Glucose 72mg/dL Normal [id number] 65 - 99 [facility]CT POC Glucose 95mg/dL Normal [id number] 65 - 99 H[facility]CT POC Glucose 88mg/dL Normal [id number] 65 - 99 H[facility]CT POC Glucose 84mg/dL Normal [id number] 65 - 99 H[facility]CT INR PPP 0.9 Normal [id number] H[facility] Prothrombin time 10.7seconds Normal [id number] 10 - 13. 5 H[facility]CT Fibrinogen PPP-mCnc 396mg/dL Normal [id number] 148 - 4 35 HHCCT TT imm Bovine Thrombin PPP 16seconds Normal [id number] 12.7 - 19.2 HHCCT aPTT PPP 31seconds Normal [id number] 25 - 36 HHCCT AST SerPl-cCnc 14U/L Normal [id number] 10 - 50 HH CCT ALT SerPl-cCnc 8U/L Below low normal [id number] 10 - 50 HHCCT Creat SerPl-mCnc 0.8mg/dL Normal [id number] 0.4 - 1.1 HHCCT Globulin Ser Calc-mCnc 2.5g/dL Normal 1.5 - 3.9 HHCCT CO2 SerPl-sCnc 25mmol/L Normal 22 - 33 HH CCT Albumin/Glob SerPl 1.6Ratio Normal 1 - 3 HHCCT Anion Gap Bld-sCnc 11 Normal [id number] 7 - 17 HHCCT Potassium SerPl-sCnc 4mmol/L Normal 3.4 - 5.3 HHCCT Bilirub SerPl-mCnc 0.6mg/dL Normal 0.2 - 1 HHCCT Calcium SerPl-mCnc 9.3mg/dL Normal 8.7 - 10 .5 HHCCT BUN SerPl-mCnc 17mg/dL Normal 8 - 21 HH CCT ALP SerPl-cCnc 55U/L Normal 32 - 122 HH CCT GFR/BSA.pred SerPlBld REU-TFS-IoBEdv 75 Normal 59 - HHCCT Chloride SerPl-sCnc 104mmol/L Normal 98 - 10 7 HHCCT BUN/Creat SerPl 21Ratio Normal 10 - 25 H HCCT Albumin SerPl-mCnc 3.9g/dL Normal 3.4 - 4. 8 HHCCT Prot SerPl-mCnc 6.4g/dL Normal 6.3 - 8.3 H HCCT Glucose SerPl-mCnc 83mg/dL Normal 65 - 99 HHCCT Sodium SerPl-sCnc 140mmol/L Normal 136 - 145 HHCCT Neutrophils num Bld Auto 4.46Thou/uL Normal [id number] 2 - 7.5 HHCCT Monocytes num Bld Auto 0.48Thou/uL Normal [id number] 0.2 - 1.5 HHCCT Eosinophil num Bld Auto 0.32Thou/uL Normal [id number] 0 - 0.7 HHCCT WBC num Bld Auto 8.4Thou/uL Normal [id number] 4 - 11 HHCCT MCHC RBC Auto-mCnc 30.3g/dL Normal [id number] 30 - 36 HHCCT Monocytes/leuk NFr Bld Auto 5.7% Normal [id number] HHCCT Hct VFr Bld Auto 37.9% Normal [id number] 35 - 47 HHCCT RBC num Bld Auto 4.39Mil/uL Normal [id number] 4 - 5.4 HHCCT RDW RBC Auto-Rto 14.6% Above high normal [id number] 11 .5 - 14.5 HHCCT PMV Bld Auto 10.9fL Normal [id number] 7.5 - 12.[address] Eosinophil/leuk NFr Bld Auto 3.8% Normal [id number] HHCCT MCH RBC Qn Auto 26.2pg Below low normal 27 - 31 HHCCT Basophils/leuk NFr Bld Auto 0.7% Normal [id number] HHT Basophils num Bld Auto 0.06Thou/uL Normal [id number] 0 - 0.2 HHCCT Platelet num Bld Auto 225Thou/uL Normal [id number] 150 - 450 HHCCT Neutrophils/leuk NFr Bld Auto 53% Normal [id number] HHCCT MCV RBC Auto 86fL Normal [id number] 80 - 100 HH T Lymphocytes/leuk NFr Bld Auto 36.4% Normal [id number] HHCCT Lymphocytes num Bld Auto 3.06Thou/uL Normal [id number] 1.5 - 4.5 HHCCT Imm Granulocytes/leuk NFr Bld Auto 0.4% Normal [id number] HHCCT Hgb Bld-mCnc 11.5g/dL Below low normal [id number] 11.7 - 15.7 HHCCT Imm Granulocytes num Bld Auto 0.03Thou/uL Normal [id number] 0 - 0.1 HHCCT Anticoagulant NO ANTI COAGULANT MEDS Normal [facility] Anticoagulant NO ANTI COAGULANT MEDS Normal [facility] Anticoagulant NO ANTI COAGULANT MEDS Normal [facility]
--- OUTSIDE RECORDS SUMMARY | 2024-11-01 20:50 | XMS_ITS | Patient Health Record ---
Author Organization [facility] Address [address] [place] [address] Care Team Providers Care Liquor Maker Name Role Phone Milana NATARAJAN, Allen Primary Care Provider Pablo WrightyamilkaDesire Unavailable [phone] Allergies No Known Allergies Results Component Value Reference Range Notes HEMOGLOBIN A1C (GLYCOHEMOGLO BIN) Reviewed date:04/06/2024 03:02:30 PM Interpretation: Performing Lab: Notes/Report: HEMOGLOBIN A1C (HH) 6.3 Reason For Referral No Information Medications Medication SIG (Take, Route, Frequency, Duration) Notes Start Date End Date Status Levothyroxine Sodium 125 MCG 1 tablet in the morning on an empty stomach Orally Once a day for 30 day(s) Active Warfarin Sodium Unkn own Victoza 18 MG/3ML as directed Subcutaneous Active Atorvastatin Calcium Unknown Metformin & Diet Manage Prod Unknown Extra Depth Orthopedic Shoes (1 Pair) with Customized Heat Molded Multidensity Innersoles (3 Pair) as directed Dx: NIDDM/Polyneuropath y (E11.42), Hammertoe Foot Deformity (M20.41,M20.42), Preulcerative Skin Lesion(s) (L85.1 04/06/2024 Active Lisinopril Unknown hydroCHLOROthiazide Unknown Advil Unknown Vitamin D3 Unknown Extra-Depth Diabetic Shoes with 3 Pair Custom heat-molded multi-density innersoles . for 1 year . Dx: 250.61,735.4,701 for . Unknown Rosuvastatin Calcium 20 MG 1 tablet Orally Once a day for 30 day(s) Active Ezetimibe 10 MG 1 tablet Orally Once a day for 30 day(s) Active Losartan Potassium 25 MG 1 tablet Orally Once a day for 30 day(s) Active amLODIPine Besylate 10 MG 1 tablet Orall y Once a day for 30 day(s) Active metFORMIN HCl 1000 MG 1 tablet with a meal Orally Once a day for 30 day(s) Active HumaLOG 15 units 3x per day Not-Taking Extra Depth Orthopedic Shoes (1 Pair) with Customized Heat Molded Multidensity Innersoles (3 Pair) as directed Dx: NIDDM/Polyneuropath y (E11.42), Hammertoe Foot Deformity (M20.41,M20.42), Preulcerative Skin Lesion(s) (L85.1 08/19/2022 Active Extra Depth Orthopedic Shoes (1 Pair) with Customized Heat Molded Multidensity Innersoles (3 Pair) as directed Dx: NIDDM/Polyneuropath y (E11.42), Hammertoe Foot Deformity (M20.41,M20.42), Preulcerative Skin Lesion(s) (L85.1 06/26/2021 Not-Taking Gabapentin 100 MG 1 capsule Orally Once a day for 30 day(s) once a day Active Lantus Unknown Immunizations Vaccine Route Administration Date Status Comme nts COVID-19 Moderna Vaccine Unknown 09/12/2021 Administered First Dose: 12/26/2020 Second dose: 01/22/2021 Influenza Unknown 08/23/2020 Administered Influenza Unknown 09/30/2021 Administered Influenza Unknown 09/22/2022 Administered Influenza Unknown 08/24/2023 Administered Social History Tobacco Use: Social History Observation Description Date Details (start date - stop date) Former Smoker NA - 06/13/1971 Tobacco Use/Smoking Question Answer Notes Are you a: former smoker When did you stop smoking? 06/13/1971 Additional Findings: Tobacco Non-User Ex-cigaret te smoker Alcohol Screen Question Answer Notes Did you have a drink contain ing alcohol in the past year? Yes How often did you have a dri nk containing alcohol in the past year? Monthly or less (1 point) Points 1 Interpretation Negative Tobacco use other than smoking: Question Answer Notes Are you an other tobacco user? 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) Active confirmed Problem 88542124 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.072) Active confirmed Vital Signs Height 5 ft 1 in in 04/06/2024 Weight 176 lbs 04/06/2024 BMI 33.25 kg/m2 04/06/2024 Encounters Encounter Location Date Provider Diagnosis [facility] [address] [place] [address] 04/06/2024 Desire Ashford Type 2 diabetes mellitus with polyneuropathy E11.42 ; Other hammer toe(s) (acquired), right foot M20.41 ; Verruca pedis B07.0 ; Right foot pain M79.671 and Other hammer toe(s) (acquired), left foot M20.42 [facility] [address] [address] 07/11/2024 Desire Ashford Assessments Encounter Date Diagnosis (ICD Code) Assessment Notes Treatment Notes Treatment Clinical Notes Section Notes 04/06/2024 Other hammer toe(s) (acquired), right foot (ICD-10 - M20.41) Patient Educated with: DIABETIC FOOT CARE INSTRUCTIONS. pdf (DIABETIC FOOT CARE INSTRUCTIONS. pdf) 04/06/2024 Type 2 diabetes mellitus with polyneuropathy (ICD-10 - E11.42) 04/06/2024 Verruca pedis (ICD-10 - B07.0) 04/06/2024 Right foot pain (ICD-10 - M79.671) 04/06/2024 Other hammer toe(s) (acquired), left foot (ICD-10 - M20.42) Plan Of Treatment Pending Test Test Name Order Date [id number] NAIL, 6 OR MORE 01/23/2015 [id number] Plate 01/23/2015 [id number] Plate Each Additional 01/2015 [id number] SKIN LESIONS, OVER 4 01/24/20 15 Insurance Providers Payer Name Payer Address Payer Phone Subscriber Number Group Number Insured Name Patient Relationship to Insured Coverage Start Date Coverage End Date [employer] [address] [place] [address] [phone] [id number] Naty Cervantes Self - patient is the insured Medical (General) History Medical History History ICD Code Chicken pox Measles Mumps Hypertension Thyroid disorder Diabetic Arthritis Back,Hip,and Knee pain CAD (Cholesterol) Gall bladder problems Vascular phlebitis (clots) Stroke Cataracts Hearing loss Surgical History Surgery Date(Month/Year) cholecystectomy hysterectomy 1994 back surgery 1991 gall bladder 1970 cataract surgery [place] History Reason Date(Month/Year[place] [facility] [place]
--- OUTSIDE RECORDS SUMMARY | 2024-11-01 20:50 | XMS_ITS ---
[facility] Organization [facility] Address [address] [place] [address] Care Team Providers Care Sports Medicine Physician Name Role Phone Milana NATARAJAN, Allen Primary Care Provider Desire Arias Unavailable [phone] Allergies No Known Allergies REASON FOR VISIT At Risk Footcare, Wart(s), Toe Irritation Medications Medication SIG (Take, Route, Frequency, Duration) Notes Start Date End Date Status Metformin & Diet Manage Prod Unknown Lisinopril Unknown hydroCHLOROthiazide Unknown Advil Unknown Vitamin D3 Unknown Warfarin Sodium Unkn own Atorvastatin Calcium Unknown Extra Depth Orthopedic Shoes (1 Pair) with Customized Heat Molded Multidensity Innersoles (3 Pair) as directed Dx: NIDDM/Polyneuropath y (E11.42), Hammertoe Foot Deformity (M20.41,M20.42), Preulcerative Skin Lesion(s) (L85.1 08/19/2022 Active Extra Depth Orthopedic Shoes (1 Pair) with Customized Heat Molded Multidensity Innersoles (3 Pair) as directed Dx: NIDDM/Polyneuropath y (E11.42), Hammertoe Foot Deformity (M20.41,M20.42), Preulcerative Skin Lesion(s) (L85.1 06/26/2021 Not-Taking Lantus Unknown Ezetimibe 10 MG 1 tablet Orally Once [...] HumaLOG 15 units 3x per day Not-Taking Levothyroxine Sodium 125 MCG 1 tablet in the morning on an empty stomach Orally Once a day for 30 day(s) Active Victoza 18 MG/3ML as directed Subcutaneous Active Extra Depth Orthopedic Shoes (1 Pair) with Customized Heat Molded Multidensity Innersoles (3 Pair) as directed Dx: NIDDM/Polyneuropath y (E11.42), Hammertoe Foot Deformity (M20.41,M20.42), Preulcerative Skin Lesion(s) (L85.1 04/06/2024 Active Rosuvastatin Calcium 20 MG 1 tablet Orally Once a day for 30 day(s) Active Gabapentin 100 MG 1 capsule Orally Once a day for 30 day(s) once a day Active Extra-Depth Diabetic Shoes with 3 Pair Custom heat-molded multi-density innersoles . for 1 year . Dx: 250.61,735.4,701 for . Unknown Social History Tobacco Use: Social History Observation [...] other tobacco user? Yes n icoteine pen Vital Signs Height 5 ft 1 in in 04/06/2024 Weight 176 lbs 04/06/2024 BMI 33.25 kg/m2 04/06/2024 Encounters Encounter Location Date Provider Diagnosis [facility] [address] [place] [address] 04/06/2024 Desire Ashford Type 2 diabetes mellitus with polyneuropathy E11.42 ; Other hammer toe(s) (acquired), right foot M20.41 ; Verruca pedis B07.0 ; Right foot pain M79.671 and Other hammer toe(s) (acquired), left foot M20.42 Assessments Encounter Date Diagnosis (ICD Code) Assessment Notes Treatment Notes Treatment Clinical Notes Section Notes 04/06/2024 Type 2 diabetes mellitus with polyneuropathy (ICD-10 - E11.42) 04/06/2024 Other hammer toe(s) (acquired), right foot (ICD-10 - M20.41) Patient Educated with: DIABETIC FOOT CARE INSTRUCTIONS. pdf (DIABETIC FOOT CARE INSTRUCTIONS. pdf) 04/06/2024 Verruca pedis (ICD-10 - B07.0) 04/06/2024 Right foot pain (ICD-10 - M79.671) 04/06/2024 Other hammer toe(s) (acquired), left foot (ICD-10 - M20.42) Plan Of Treatment Medication Medication Name Sig Start Date Stop Date Notes Extra Depth Orthopedic Shoes (1 Pair) with Customized Heat Molded Multidensity Innersoles (3 Pair) as directed Dx: NIDDM/Polyneuropathy (E11.42), Hammertoe Foot Deformity (M20.41,M20.42), Preulcerative Skin Lesion(s) (L85.1 04/06/2024 Treatment Notes Assessment Notes Other hammer toe(s) (acquired), right fo ot Patient Educated with: DIABETIC FOOT CARE INSTRUCTIONS.pdf (DIABETIC FOOT CARE INSTRUCTIONS.pdf) Next Appt Details Follow Up: 2 Months, Reason: Procedure Notes * Category Sub-Category Detail Notes Wart Treatment Procedure Verrucae were de brided to pin-point bleeding margins with sterile 15 surgical blade, silver nitrate chemocautery applied, recomm. immune-boosting meds such as zinc, recomm. follow up with topical chemosurgical agents, Pt defers any other forms of tx (38440) Keratoma Treatment Parring or Cutting o f Benign Hyperkeratotic Lesion(s) 41008 ( >4 Lesions) - The Benign hyperkeratotic lesions, as described above were pared, and/or cut utilizing a sterile #15 blade, tissue nippers, and/or dremel Nail Reduction Nail Reduction Trimming of dyst rophic nails performed to reduce/remove overall nail length and girth, by manual and electrical means with use of a nail nipper and/or dremel, to more viable healthy nail plate or bed tissue 6-10 (G0127) Progress Notes * Naty CERVANTES LDOB: [birth year] (78 yo F)Acc No.[id number]:04/06/2024 Progress Note Patient:Naty Cook Provider:?Desire Ashford DPM :1945???Age:78 Y???Sex:Female D ate:04/06/2024 Address:[address] [place] [address], [facility] Pcp:Allen Cortés MD Subjective: * Chief Complaints: * ???At Risk FootcareWart(s)To e Irritation * HPI: ???At Risk footcare:?Pt States Last PCP Visit:?Date?03/08/2024 ???Skin problems:?Pt States PCP Visit: ?DATE?03/08/2024 ???Toe pain:?Location:?B/L feet.?Duration:?several years.?Course:?worse.?Aggrevated by:?shoes, any pressure.?Treatments:?change in shoes.? * ROS:?General/Constitutional:?Nausea?denies.?Vomiting?denies.?Hunger Thirst?denies.?Loss appetite?denies.?Chills?denies.?Fatigue?denies.?Fever?denies.?Night Sweats?denies.?Unexplained weight loss?denies.?Unexplained weight gain?denies.?HEENTM:?Dentures?denies.?Dizziness?denies.?Glasses/contacts?admits.?Retinopathy?de nies.?Blurred/double vision?denies.?TMJ?denies.?Discharge/drainage?denies.?Implants?denies.?Sore throat?denies.?Dental implants?denies.?Hard of hearing ?admits.?Difficulty chewing/swallowing/speaking?denies.?Nose bleeds?denies.?Sore mouth?denies.?Respiratory:?On Oxygen?denies.?Pneumonia/pleurisy?denies.?Bronchitis?denies.?Emphysema?denies.?C oughing?denies.?Cough blood?denies.?Shortness of breath?denies.?Wheezing?denies.?Cardiovascular:?Pacemaker?denies.?MVP?denies.?WPW?denies.?CHF?denies.?Heart attack?denies.?Septal defect?denies.?Rapid beat?denies.?Chest pain ?denies.?Atrial Fib.?denies.?Murmur/Palpitations?denies.?Gastrointestinal:?Hemorrhoids?denies.?Stomach/Abdominal pain?denies.?Dark blood stool?denies.?Irritable bowel ?denies.?Constipation?denies.?Diarrhea?denies.?Hematology:?Swelling?denies.?Clots?denies.?Varicose Veins?denies.?Bruising?denies.?Bleeding problem?denies.?Genitourinary:?Blood urine?denies.?Frequent/Painfu/urination/bladder control?denies.?Kidney stones?denies.?Infection (UTI)?denies.?Nephropathy?denies.?sex trans dis (STD)?denies.?Prostate?denies.?Musculoskeletal:?Hammertoes?denies.?Bunions?denies.?Back Pain?denies.?Muscle Cramps/ Resting?denies.?Muscle cramps / walking?denies.?Generalized aches and pains?denies.?Weakness?denies.?Integ.:?Sauceda?denies.?Scars?denies.?Corns/calluses?denies.?Ingrown nails?denies.?Painful nails?denies.?Open Sores?denies.?Rashes?denies.?Neurologic:?Difficulty sleeping?denies.?Brain disorder?denies.?Numbness?admits.?Balance trouble?denies.?Confusion?denies.?Fainting/blackouts?denies.?Tingling?admits.?Tr emors?denies.? * Medical History:? * Surgical History:?cholecyste ctomy hysterectomy 1995back surgery 1992gall bladder 1970cataract surgery * Hospitalization/Major Diagno stic Procedure:?[facility] [place]- Stroke- rehab * Family History:?Mother: dece ased, foot problems, diagnosed with Family history of arthritis, Unspecified essential hypertension, Unspecified heart disease, Unspecified cerebral artery occlusion with cerebral infarction.?Father: , diagnosed with Diabetic - NIDDM, Other malignant neoplasm of unspecified site.?Spouse: .? * Social History:?Tobacco Use:?Tobacco Use/Smoking?Are you a:?former smoker ?When did you stop smoking??06/13/1971 ?Additional Findings: Tobacco Non-User?Ex-cigarette smoker ?Tobacco use other than smoking?Are you an other tobacco user??Yes nicoteine pen ???Drugs/Alcohol:?Drugs?Have you used drugs other than those for medical reasons in the past 12 months??No ?Alcohol Screen?Did you have a drink containing alcohol in the past year??Yes ?How often did you have a drink containing alcohol in the past year??Monthly or less (1 point) ?Points?1 ?Interpretation?Negative ???Miscellaneous:?Caffeine: yes, frequency:, 1-2 cups per day. ?Children: yes, 3. ?Exercise: yes, walking. ?Marital status: . ?Occupation: Retired. * Medications:?TakingGabapenti n 100 MG Capsule 1 capsule Orally Once a day, Notes: once a dayLevothyroxine Sodium 125 MCG Tablet 1 tablet in the morning on an empty stomach Orally Once a dayVictoza 18 MG/3ML Solution Pen-injector as directed Subcutaneous Rosuvastatin Calcium 20 MG Tablet 1 tablet Orally Once a dayEzetimibe 10 MG Tablet 1 tablet Orally Once a dayLosartan Potassium 25 MG Tablet 1 tablet Orally Once a dayamLODIPine Besylate 10 MG Tablet 1 tablet Orally Once a daymetFORMIN HCl 1000 MG Tablet 1 tablet with a meal Orally Once a dayExtra Depth Orthopedic Shoes (1 Pair) with Customized Heat Molded Multidensity Innersoles (3 Pair) as directed Dx: NIDDM/Polyneuropathy (E11.42), Hammertoe Foot Deformity (M20.41,M20.42), Preulcerative Skin Lesion(s) (L85.1Taking Gabapentin 100 MG Capsule 1 capsule Orally Once a day, Notes: once a dayTaking Levothyroxine Sodium 125 MCG Tablet 1 tablet in the morning on an empty stomach Orally Once a dayTaking Victoza 18 MG/3ML Solution Pen-injector as directed Subcutaneous Taking Rosuvastatin Calcium 20 MG Tablet 1 tablet Orally Once a dayTaking Ezetimibe 10 MG Tablet 1 tablet Orally Once a dayTaking Losartan Potassium 25 MG Tablet 1 tablet Orally Once a dayTaking amLODIPine Besylate 10 MG Tablet 1 tablet Orally Once a dayTaking metFORMIN HCl 1000 MG Tablet 1 tablet with a meal Orally Once a dayTaking Extra Depth Orthopedic Shoes (1 Pair) with Customized Heat Molded Multidensity Innersoles (3 Pair) as directed Dx: NIDDM/Polyneuropathy (E11.42), Hammertoe Foot Deformity (M20.41,M20.42), Preulcerative Skin Lesion(s) (L85.1Not-Taking/PRNHumaLOG , Notes: 15 units 3x per dayExtra Depth Orthopedic Shoes (1 Pair) with Customized Heat Molded Multidensity Innersoles (3 Pair) as directed Dx: NIDDM/Polyneuropathy (E11.42), Hammertoe Foot Deformity (M20.41,M20.42), Preulcerative Skin Lesion(s) (L85.1Not-Taking/PRN HumaLOG , Notes: 15 units 3x per dayNot-Taking/PRN Extra Depth Orthopedic Shoes (1 Pair) with Customized Heat Molded Multidensity Innersoles (3 Pair) as directed Dx: NIDDM/Polyneuropathy (E11.42), Hammertoe Foot Deformity (M20.41,M20.42), Preulcerative Skin Lesion(s) (L85.1UnknownLantus Warfarin Sodium Atorvastatin Calcium Metformin & Diet Manage Prod Lisinopril hydroCHLOROthiazide Advil Vitamin D3 Extra-Depth Diabetic Shoes with 3 Pair Custom heat-molded multi-density innersoles . . for 1 year . Dx: 250.61,735.4,701Medication List reviewed and reconciled with the patientUnknown Lantus Unknown Warfarin Sodium Unknown Atorvastatin Calcium Unknown Metformin & Diet Manage Prod Unknown Lisinopril Unknown hydroCHLOROthiazide Unknown Advil Unknown Vitamin D3 Unknown Extra-Depth Diabetic Shoes with 3 Pair Custom heat-molded multi-density innersoles . . for 1 year . Dx: 250.61,735.4,701Medication List reviewed and reconciled with the patient * Allergies:?N.K.D.A.yes[Aller rosy Verified] Objective: * Vitals:?Ht: 5 ft 1 in, Wt: 1 76, BMI: 33.25, Shoe size: 8W, BS: 121, Wt-k.83 kg. * ???Past Orders: ???Lab:HEMOGLOBIN A1C (GLYCO HEMOGLOBIN) (Order Date - 12/24/2023) (Collection Date - 12/24/2023) ? Value Reference Range ?HEMOGLOBIN A1C (HH) 6.3 * Examination: ???Ophthalmology Referral: ?DIABETES EYE EXAM?Neurological: ?SENSORY:?Neurological exam demonstrates, reduced light touch sensation, reduced sharp/dull discrimination , reduced vibration sensation, in a stocking fashion, B/L, 5.07 monofilament test performed at plantar aspects of 5 varied sites per foot shows sensation, reduced, B/L.?Nails: ?NAILS are:?Elongated, overgrown, dystrophic, 1-5 B/L.?Dermatologic: ?SKIN FINDINGS:? Skin exam reveals Keratotic lesion(s) located at, Medial plantar, TA, T5, SUB MTH (s), 1, 2, Right , 1, Left .?VERRUCA:?Reveals a Single , multi-loculated , mosaically patterned, round, raised, flat-topped, petechial bleeding papule(s), with cauliflower appearance and interruption of skin lines, pain to lateral compression, and size estimated at 4 mm diameter , plantar Forefoot , RIGHT.?General Examination: ?FOOT EXAM:?Footwear Evaluation?Orthopedic: ?DIGITAL DEFORMITIES:?Digital contracture, PIPJ, 2-5 B/L, incompl-reducible to push-up test, no over, nor underlapping, with evidence of shoe producing skin irritation.?FOOTWEAR:?worn, non-supportive, shoe gear properties exacerbate patient's foot/toe deformity.? Assessment: * Assessment: 1.?Other hammer toe(s) (acqu ired), right foot - M20.41 (Primary), Chronic problem, Worse (4),Rx Management (4)?2.?Type 2 diabetes mellitus with polyneuropathy - E11.42?3.?Verruca pedis - B07.0?4.?Right foot pain - M79.671?5.?Other hammer toe(s) (acquired), left foot - M20.42, Chronic problem, Worse (4),Rx Management (4)? Plan: * Treatment: * Procedures:?Keratoma Treatment:?Parring or Cutting of Benign Hyperkeratotic Lesion(s)?60581 ( >4 Lesions) - The Benign hyperkeratotic lesions, as described above were pared, and/or cut utilizing a sterile #15 blade, tissue nippers, and/or dremel.?Wart Treatment:?Procedure?Verrucae were debrided to pin-point bleeding margins with sterile 15 surgical blade, silver nitrate chemocautery applied, recomm. immune-boosting meds such as zinc, recomm. follow up with topical chemosurgical agents, Pt defers any other forms of tx (10634).?Nail Reduction:?Nail Reduction?Trimming of dystrophic nails performed to reduce/remove overall nail length and girth, by manual and electrical means with use of a nail nipper and/or dremel, to more viable healthy nail plate or bed tissue 6-10 (G0127).? * Procedure Codes:?19134 Wart Destruction, 1-14, Modifiers: XS G0127 TRIMMING DYSTROPHIC NAILS ANY #, Modifiers: XS 31176 TRIM SKIN LESIONS, OVER 4, Modifiers: XS * Preventive Medicine:? ??Counseling:?Discussion:?-14: Office or other outpatient visit for the evaluation and management of an established patient, which required a medically appropriate history and/or examination and MODERATE level of DECISION MAKING for: 1 OR MORE CHRONIC PROBLEM(S) THATS WORSENING, 2 STABLE CHRONIC PROBLEMS, A NEWLY DIAGNOSED PROBLEM WITH UNCERTAIN PROGNOSIS, AN ACUTE COMPLICATED INJURY WITH MULTIPLE TREATMENT OPTIONS, OR AN ACUTE PROBLEM WITH ACCOMPANYING SYSTEMIC SYMPTOMS, THAT POSE(S) A MODERATE RISK OF MORBIDITY. THIS CONDITION MAY ALSO INCLUDE RX DRUG MANAGEMENT, OR A DECISON FOR MINOR SURGERY. The visit on the day of the encounter encompassed interpreting the data and educating the patient as to the nature of their condition, treatment options available according to their individual PMH, meds, allergies, and overall health/living conditions, as well as any potential risks or complications that may occur from a failure to adhere to, and participate in, the recommended course of therapy. The discussion included a complete verbal, and/or written explanation of the examination results, any x-rays taken, the proposed diagnosis, and outline of the treatment plan. A schedule for future care needs was also explained. The patient verbalized an understanding of the instructions at this time and agreed to be an active participant in their treatment. If the patient should think of any questions or concerns after the visit, I have encouraged the patient to call the office.?Digital Surgery:?Digital surgery was discussed with the patient, We elected to try conservative treatment at the present time, due to the patients medical history and increased asssociated post-operative risks.?Digital Treatment:?HT- I explained to the patient the possible etiologies of Hammertoes, including genetics/foot type/shoegear/activity level/exercise routine and the risks/benefits of all the different treatment options for their pain including: No treatment at all, Rest, Ice, New/supportive/wider/deeper Shoegear, Digital Padding/Strapping/Taping/Bracing/Gel protective sleeves, Foot/Ankle AFO Bracing, Stretching exercises, Deep Tissue Massage, Arch support/shoe inserts with splay metatarsal padding, and Custom orthoses. I insisted that any digital devices be removed daily and not worn overnight for safety. The patient is to carefully examine the toes daily for any skin irritation while using any splinting or padding device. The advantages and disadvantages of each option were discussed and the patients questions re: shoegear, padding, custom vs prefabricated inserts, activity level, and consistency in home treatment regimens for optimal success were answered to their verbally confirmed satisfaction.?Shoe Gear Counseling:?SHOE Rx - The patient was counseled in great detail on their muscoloskeletal foot and toe deformities which coincided with the dermatological presentations visualized on exam. We discussed how their deformities put the integrity of their feet at risk for potential pedal complications which makes the accomidative diabetic shoes and cutomizable inserts medically necessary. We discussed the different shoe and insert treatment types and options, as well as the important advantages for adhering to regularly wearing these accomidative devices daily. The patient was made aware of the fact that a failure to abide by these recommedations may be deleterious to their foot health as they are able to prevent many pedal complications such as skin irritation, skin ulceration, infection, and even loss of toe/foot/leg/or life. Time was also spent with the patient dispensing and discussing proper diabetic footcare techniques including daily skin moisturization, daily foot inspection for any interruption in skin integrity including open lesions, or sign of infection such as redness/malodor/drainage/swelling. Also discussed and recommended were procedures regarding daily shoe inspection for the presence of internal foreign bodies as well as any visualized irregular shoe or insert wear. Patient questions re: shoes, inserts, and self foot inspections were answered to their satisfaction as the patient verbally confirmed a full understanding of the above information. A Rx for Extra Depth Orthopedic Shoes with 3 pair of custom heat-molded inserts was dispensed.?Ulcer:?.? * Follow Up:?2 Months * Images: * Sign off status: Completed true * Provider:?Desire Ashford DPM Date:? Generated for Peri gautam/Diego/Adarsh on:?11/01/2024 08:49 PM EST History and Physical Notes * HPI (History of Present Illness) Category Sub-Category Detail Notes Category Not es Toe pain Location: B/L feet Duration: several years Course: worse Aggravated by: shoes, any pressure Treatments: change in shoes Skin problems Pt States PCP Visit: DATE: 03/08/2024 At Risk footcare Pt States Last PCP Visit: Date: 4 Examination Category Sub-Category Detail Notes Category Not es Neurological SENSORY: Neurological exa m demonstrates, reduced light touch sensation, reduced sharp/dull discrimination , reduced vibration sensation, in a stocking fashion, B/L, 5.07 monofilament test performed at plantar aspects of 5 varied sites per foot shows sensation, reduced, B/L Dermatologic SKIN FINDINGS: Skin exam reveal s Keratotic lesion(s) located at, Medial plantar, TA, T5, SUB MTH (s), 1, 2, Right , 1, Left VERRUCA: Reveals a Single , m ulti-loculated , mosaically patterned, round, raised, flat-topped, petechial bleeding papule(s), with cauliflower appearance and interruption of skin lines, pain to lateral compression, and size estimated at 4 mm diameter , plantar Forefoot , RIGHT Orthopedic FOOTWEAR: worn, non-suppor tive, shoe gear properties exacerbate patient's foot/toe deformity DIGITAL DEFORMITIES: Digital contracture , PIPJ, 2-5 B/L, incompl-reducible to push-up test, no over, nor underlapping, with evidence of shoe producing skin irritation General Examination FOOT EXAM: Lower Extrem ity Neurological Exam performed:: Yes Footwear Evaluation Footwear Evaluation performe d:: Yes Ophthalmology Referral DIABETES EYE EXAM Diabetic Retinopa thy Screening:: Yes Findings of Diabetic Eye Exam:: no retin opathy Nails NAILS are: Elongated, overgrown, dystro phic, 1-5 B/L
== END 2024-10-26 15:11 | disposition home or self-care (01) ==
PROVIDERS: PCP Internal Medicine; Visit Provider Internal Medicine Cardiovascular Disease
DX: I48.0 Paroxysmal atrial fibrillation (principal); I10 Essential (primary) hypertension
CPT/HCPCS: 99214; G2211

== ENCOUNTER → 2024-10-26 14:31 | Outpatient (BNVA) | payer MEDICARE, SELFPAY | PROVIDERS: PCP Internal Medicine; Visit Provider Internal Medicine Cardiovascular Disease | DX: I48.0 Paroxysmal atrial fibrillation (principal); I10 Essential (primary) hypertension | CPT/HCPCS: 99212 ==

== ENCOUNTER 2024-11-27 15:11 | Emergency (ER) | payer MEDICARE, SELFPAY ==
--- NOTE | ~2024-11-27 | CT_ITS ---
CLINICAL HISTORY: abd pain, nausea, diarrhea CT abdomen and pelvis with contrast Comparison: None Findings: The visualized portions of the lungs are normal in appearance. The liver is normal in size without suspicious focal hepatic lesions. The hepatic and portal veins are patent. Post cholecystectomy. Dilation of the intrahepatic and extrahepatic biliary duct is likely secondary to cholecystectomy. Pancreas, spleen and adrenals are normal in appearance. No suspicious focal lesion of the kidneys. No hydronephrosis or calculi. Small fluid density adjacent to the left kidney. The abdominal aorta demonstrates no evidence of aneurysmal dilatation or dissection. Atherosclerosis calcification of the aorta and at the origin of the major branches. Colonic diverticulosis with bowel wall thickening of the sigmoid colon. No evidence of bowel obstruction. Appendix is not visualized. Post hysterectomy. No intraperitoneal free air or fluid is visualized. No pathologic lymphadenopathy is seen. There is a fat containing umbilical hernia. Degenerative changes of the lumbar spine. IMPRESSION: Colonic diverticulosis with bowel wall thickening of the sigmoid colon. Acute uncomplicated diverticulitis can not be excluded. Correlation with colonoscopy findings as indicated. Additional findings as above. This document has been electronically signed by: Ponce Vila MD on 11/27/2024 19:07:06
[2024-11-27 15:26] VITALS: BP 123/59; PULSE 85; RESP 12; TEMP 36.6; O2SAT 98; BMI 32.6
--- NOTE | 2024-11-27 15:32 | ECG_ITS ---
Test Reason : ABD PAIN Blood Pressure : / mmHG Vent. Rate : 081 BPM Atrial Rate : 081 BPM P-R Int : 192 ms QRS Dur : 092 ms QT Int : 388 ms P-R-T Axes : 052 -26 038 degrees QTc Int : 450 ms Normal sinus rhythm Incomplete right bundle branch block Borderline ECG When compared with ECG of 26-JUN-2024 14:59, No significant change was found Referred By: Generic ED Physician Electronically Signed By:DANNY JACINTO
[2024-11-27 16:09] LABS: MANUAL DIFF FLAG NO
--- OUTSIDE RECORDS SUMMARY | 2024-11-27 16:09 | XMS_ITS | Patient Health Record ---
Author Organization [facility] Address [address] [place] [address] Care Team Providers Care Button Riveter Name Role Phone Milana NATARAJAN, Allen Primary Care Provider Pablo WrightyamilkaDesire Unavailable [phone] Allergies No Known Allergies Results Component Value [...] Problem Acquired hammer toe of right foot (940576028359 9105) Other hammer toe(s) (acquired), right foot (M20.41) Active confirmed Problem Acquired hammer toe of left foot ([id number] 9103) Other hammer toe(s) (acquired), left foot (M20.42) Active confirmed Problem 112810582 Hammer toe of le ft foot (M20.42) Active confirmed Problem 10102555 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.42) Active confirmed Problem 99695728 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.072) Active confirmed Vital Signs Height 5 ft 1 in in 04/06/2024 Weight 176 lbs 04/06/2024 BMI 33.25 kg/m2 04/06/2024 Encounters Encounter Location Date Provider Diagnosis [facility] [address] [place] [address] 04/06/2024 Desire Ashford Type 2 diabetes mellitus with polyneuropathy E11.42 ; Other hammer toe(s) (acquired), right foot M20.41 ; Verruca pedis B07.0 ; Right foot pain M79.671 and Other hammer toe(s) (acquired), left foot M20.42 [facility] [address] [address] 07/11/2024 Desire Ashford Assessments Encounter Date Diagnosis [...] Treatment Pending Test Test Name Order Date 52824-ITMOVJI NAIL, 6 OR MORE 01/23/2015 85388-Kynsthoo Plate 01/23/2015 16892-Blubqckr Plate Each Additional 01/2015 68631-TIKE SKIN LESIONS, OVER 4 01/24/20 15 Insurance Providers Payer Name Payer Address Payer Phone Subscriber Number Group Number Insured Name Patient Relationship to Insured Coverage Start Date Coverage End Date [employer] [address] [place] [address] [phone] [id number] Naty Cervantes Self - patient is the insured Medical (General) History Medical History History ICD Code Chicken pox Measles Mumps Hypertension Thyroid disorder Diabetic Arthritis Back,Hip,and Knee pain CAD (Cholesterol) Gall bladder problems Vascular phlebitis (clots) Stroke Cataracts Hearing loss Surgical History Surgery Date(Month/Year) cholecystectomy hysterectomy 1994 back surgery 1991 gall bladder 1970 cataract surgery Hospitalization History Reason Date(Month/Year) [facility] [place]- Stroke- rehab
--- OUTSIDE RECORDS SUMMARY | 2024-11-27 16:09 | XMS_ITS ---
Author Organization [facility] Address [address] [place] [address] Care Team Providers Care Automobile Mechanic Motor Name Role Phone Milana NATARAJAN, Allen Primary Care Provider Desire Arias Unavailable [phone] Allergies No Known Allergies REASON FOR VISIT [...] 04/06/2024 Encounters Encounter Location Date Provider Diagnosis [facility] [place] [address] [place] [address] 04/06/2024 Desire Ashford Type 2 diabetes mellitus [...] Pt defers any other forms of tx (65456) Keratoma Treatment Parring or Cutting o f Benign Hyperkeratotic Lesion(s) 50277 ( >4 Lesions) - The Benign hyperkeratotic [...] Naty CERVANTES LDOB: [birth year] (78 yo F)Acc No.[id number]:04/06/2024 Progress Note Patient:Naty Cook Provider:?Desire Ashford DPM :1945???Age:78 Y???Sex:Female D ate:04/06/2024 Address:[address] [place] [address], [id number] Pcp:Allen Cortés MD Subjective: * Chief Complaints: [...] bladder 1970cataract surgery * Hospitalization/Major Diagno stic Procedure:?[facility] [place]- Stroke- rehab * Family History:?Mother: dece ased, [...] Procedures:?Keratoma Treatment:?Parring or Cutting of Benign Hyperkeratotic Lesion(s)?97096 ( >4 Lesions) - The Benign hyperkeratotic lesions, as described above were pared, and/or cut utilizing a sterile #15 blade, tissue nippers, and/or dremel.?Wart Treatment:?Procedure?Verrucae were debrided to pin-point bleeding margins with sterile 15 surgical blade, silver nitrate chemocautery applied, recomm. immune-boosting meds such as zinc, recomm. follow up with topical chemosurgical agents, Pt defers any other forms of tx (82620).?Nail Reduction:?Nail Reduction?Trimming of dystrophic nails performed to reduce/remove overall nail length and girth, by manual and electrical means with use of a nail nipper and/or dremel, to more viable healthy nail plate or bed tissue 6-10 (G0127).? * Procedure Codes:?24468 Wart Destruction, 1-14, Modifiers: XS G0127 TRIMMING DYSTROPHIC NAILS ANY #, Modifiers: XS 38954 TRIM SKIN LESIONS, OVER 4, Modifiers: XS [...] Ashford DPM Date:? Generated for Peri gautam/Diego/Adarsh on:?11/27/2024 04:09 PM EST History and Physical Notes * [...]
--- OUTSIDE RECORDS SUMMARY | 2024-11-27 16:09 | XMS_ITS ---
Author Organization [facility] Address [address] [place] [address] Care Team Providers Care Equalizing Saw Operator Name Role Phone Allen Cortés MD Primary Care Provider Desire Arias [phone] REASON FOR VISIT cx 07/13 appt Encounters Encounter Location Date Provider Diagnosis [address] [address] 07/11/2024 Desire Ashford Plan Of Treatment No Information Progress Notes * ORENNaty DRIVER LDOB: [birth year] (78 yo F)Acc No.[id number]:07/11/2024 Patient:?Naty Cervantes :1945???Age:78 Y???Sex:Female Address:[address] [place] [address], [address] * true * Date:? Generated for Ebonyi dain/Diego/eTransmitting on:?11/27/2024 04:09 PM EST
[2024-11-27 16:19] LABS: Basophils Percent Auto 0.3 % (0-2); Eosinophils Percent Auto 0.3 % (0-4); Hematocrit 34.5 % (37.0-47.0); Imm Gran Abs Auto 0.04 X10*3/uL (0.00-0.03); Imm Gran Pct Auto 0.3 % (0.0-0.4); Lymphocytes Absolute Auto 1.5 X10*3/uL (1.2-4.9); Lymphocytes Percent Auto 12.8 % (20-40); Mean Corpuscular HGB Conc 31.9 g/dl (31.0-35.0); Mean Corpuscular Hemoglobin 26.6 pg (27.0-33.0); Mean Corpuscular Volume 83.3 fL (80.0-98.0); Mean Platelet Volume 10.9 fL (9.4-12.3); Monocytes Absolute Auto 0.6 X10*3/uL (0.1-1.2); Monocytes Percent Auto 5.6 % (2-11); Neutrophils Absolute Auto 9.3 x10*3/uL (2.0-8.3); Neutrophils Percent Auto 80.7 % (45-73); Platelet Count 266 X10*3/uL (160-400); Red Blood Count 4.14 X10*6/uL (4.20-5.50); Red Cell Distribution Width 14.1 % (11.0-16.0); White Blood Count 11.5 X10*3/uL (4.8-10.8)
[2024-11-27 16:35] LABS: Alanine Aminotransferase 9 U/L (0-31); Albumin Level 3.8 g/dL (3.5-5.0); Alkaline Phosphatase 48 U/L (39-117); Anion Gap 15 (12-20); Aspartate Amino Transferase 21 U/L (5-31); Bilirubin Total 0.4 mg/dL (0.0-1.0); Blood Urea Nitrogen 13 mg/dL (9-16); Calcium 8.9 mg/dL (8.4-10.2); Carbon Dioxide 25 mmol/L (22-29); Chloride 107 mmol/L (96-108); Creatinine Clr Calc Pharmacy 53.6; Estimated Glomerular Filt Rate > 60; Glucose Random 94 mg/dL (60-115); Potassium 4.1 mmol/L (3.3-5.1); Sodium 143 mmol/L (135-145); Total Protein 6.5 g/dL (6.5-8.0)
[2024-11-27 16:50] LABS: Influenza A PCR NEGATIVE (Negative); Influenza B PCR NEGATIVE (Negative); Resp Syncy Virus RNA Qual PCR NEGATIVE (Negative); SARS COV2 PCR INHOUSE NEGATIVE (Negative)
--- NOTE | 2024-11-27 17:35 | ED_ITS ---
HPI - Nausea/Vomiting/Diarrhea General Chief complaint: Nausea/Vomiting/Diarrhea Stated complaint: Nausea, diarrhea Time Seen by Provider: 11/27/24 16:19 History of Present Illness HPI Narrative: Patient is a 78-year-old female history of atrial fibrillation currently on Eliquis. History of CVA. History of appendectomy and cholecystectomy in the past. Presents today with having nausea. Lower abdominal pain. Diarrhea. Diarrhea is brown in color. There is no fever no chills. There is no chest pain. There is no diaphoresis. Patient from home. No coughing no congestion or upper respiratory symptoms. Related Data Home Medications ?Medication ?Instructions ?Recorded ?Confirmed gabapentin 300 mg capsule 300 mg PO BEDTIME 07/26/24 10/26/24 losartan 25 mg tablet 12.5 mg PO DAILY 07/26/24 10/26/24 Previous Rx's ?Medication ?Instructions ?Recorded blood-glucose meter (FreeStyle #1 ea 01/10/21 Lite Meter kit) pen needle, diabetic 32 gauge x #100 ea 11/05/2311/26 (Novofine 32) Stair lift #1 ea 01/19/24 liraglutide 0.6 mg/0.1 mL (18 mg/3 1.2 mg (0.2 mL) subcut DAILY 30 05/16/24 mL) subcutaneous pen injector days #6 mL blood sugar diagnostic #100 ea 06/18/24 diclofenac sodium 1 % topical gel 2 g topical BID PRN arthritis #100 07/16/24 grams atorvastatin 80 mg tablet 80 mg PO DAILY #90 tabs 08/31/24 levothyroxine 112 mcg tablet 112 mcg PO DAILY #90 tabs 10/14/24 omeprazole 20 mg capsule,delayed 20 mg PO DAILY #90 caps 10/22/24 release metformin 1,000 mg tablet 1,000 mg PO BIDWM #180 tabs 10/30/24 apixaban 5 mg tablet (Eliquis) 5 mg PO BID #60 tabs 11/09/24 ezetimibe 10 mg tablet 10 mg PO BEDTIME #30 tabs 11/26/24 ciprofloxacin HCl 500 mg tablet 500 mg PO BID #20 tabs 11/27/24 (Cipro) metronidazole 500 mg tablet 500 mg PO TID #30 tabs 11/27/24 ondansetron 4 mg disintegrating 4 mg PO TID PRN nausea and 11/27/24 tablet vomiting 5 days #10 tabs Allergies Allergy/AdvReac Type Severity Reaction Status Date / Time amoxicillin [Augmentin] Allergy Unknown hives Verified 11/27/24 15:29 clavulanic acid [Augmentin] Allergy Unknown hives Verified 11/27/24 15:29 furosemide Allergy Unknown unknown Verified 11/27/24 15:29 latex [LATEX] Allergy Unknown UNKNOWN Verified 11/27/24 15:29 lisinopril Allergy Unknown Unknown Verified 11/27/24 15:29 oxycodone [Percocet] Allergy Unknown Stomach Verified 11/27/24 15:29 upset tramadol Allergy Unknown Stomach Verified 11/27/24 15:29 uspet Review of Systems 2 Review of Systems: Positive diarrhea Yes all other systems are reviewed and are negative PMFSH Past Medical History Attestation statement: The following information was validated with the patient. Medical History Atrial fibrillation Hypothyroidism Obesity Type 2 diabetes mellitus with morbid obesity Annual physical exam Vitamin D deficiency HLD (hyperlipidemia) T2DM (type 2 diabetes mellitus) Diabetes mellitus Hypertension Surgical History History of vitrectomy History of surgery History of colonoscopy History of appendectomy History of cholecystectomy S/P JOSIE (total abdominal hysterectomy) Family History Family History Father Diabetes Mother CHF (congestive heart failure) CVD (cardiovascular disease) Brother HIV (human immunodeficiency virus infection) Social History Social History Household Members: None Housing: Condominium Do you presently have visiting nurse or other home services: No Alcohol intake: never Patient Tobacco Use Status: Former Tobacco user Tobacco use type: Cigarette Years Smoked: 30 e-Cigarette/Vaping Use: Never Used Second Hand Smoke Exposure: No Advance Directives: Yes Advance Directives on File: Yes Advance Directives Date on File: 12/15/23 Do you have a plan to hurt others: No Plan service: No Current occupational status: retired Cognitive needs: No Hearing needs: No Vision needs: No Physical Exam 2 Vital Signs: Vital Signs: Last Vital Signs Temp 98.1 F 11/27/24 18:29 Pulse 82 11/27/24 18:29 Resp 16 11/27/24 18:29 BP 149/56 H 11/27/24 18:29 Pulse Ox 95 11/27/24 18:29 O2 Del Method Room Air 11/27/24 18:29 BMI result Body Mass Index 32.6 Appearance: Alert. Oriented X3. No acute distress. Eyes: Pupils equal, round and reactive to light. ENT: Pharynx normal. Neck: Normal inspection. Neck supple. No lymph nodes noted. No crepitus CVS: Normal heart rate and rhythm. Pulses normal. Normal S1 and S2 Respiratory: No respiratory distress. Breath sounds normal. No Wheezing. No rales Abdomen: Soft and nontender. No rigidity. No distention. good BS x4 Skin: Skin warm and dry. Normal skin color. Normal skin turgor. Extremities: No lower extremity edema. Neurovascular intact to all extremities. No Lacerations. No Rash Neuro: Oriented X 3. No motor deficit. No sensory deficit. Moving all extermities. No slurred speech Medications Administered Discontinued Medications Generic Name Dose Route Start Last Admin Trade Name Freq PRN Reason Stop Dose Admin Iohexol 100 ml 11/27/24 18:19 11/27/24 18:27 Iohexol 350 Mg/Ml 100 Ml Infus..Btl IV 11/27/24 18:20 85 ml ONCE ONE Administration Medical Decision Making Medical Decision Making [facility] Narrative: CT scan of the abdomen pelvis showed a question diverticulitis. Patient's urine did show a likely infection. Was started on antibiotics including Cipro and Flagyl. Patient has an allergy to amoxicillin in the past. There is no fever no chills. Patient's repeat abdominal exam is benign. She is well-appearing. Will discharge home. Patient white count is 12. Patient's electrolytes showed a normal creatinine. LFTs are normal. Will discharge patient home on a 10 day course of Cipro and Flagyl. Currently in stable condition. Differential Diagnosis Differential Diagnoses: The differential diagnosis associated with the presentation includes Admission/Observation Consideration of admission/observation: Escalation of care including admission/observation considered Lab Data [facility] Lab Attestation statement: I reviewed the patient's lab results. 11/27/24 16:05 11/27/24 16:05 Labs: Lab Results 11/27/24 11/27/24 11/27/24 Range/Units 16:04 16:05 18:36 WBC 11.5 H (4.8-10.8) X10*3/uL RBC 4.14 L (4.20-5.50) X10*6/uL Hgb 11.0 L (12.0-16.0) g/dl Hct 34.5 L (37.0-47.0) % MCV 83.3 (80.0-98.0) fL MCH 26.6 L (27.0-33.0) pg MCHC 31.9 (31.0-35.0) g/dl RDW 14.1 (11.0-16.0) % Plt Count 266 (160-400) X10*3/uL MPV 10.9 (9.4-12.3) fL Immature Gran % (Auto) 0.3 (0.0-0.4) % Neut % (Auto) 80.7 H (45-73) % Lymph % (Auto) 12.8 L (20-40) % Mcmullen % (Auto) 5.6 (2-11) % Eos % (Auto) 0.3 (0-4) % Baso % (Auto) 0.3 (0-2) % Lymph # (Auto) 1.5 (1.2-4.9) X10*3/uL Mcmullen # (Auto) 0.6 (0.1-1.2) X10*3/uL Eos # (Auto) 0.0 (0.0-0.4) X10*3/uL Baso # (Auto) 0.0 (0.0-0.2) X10*3/uL Abs Immat Gran (auto) 0.04 H (0.00-0.03) X10*3/uL Absolute Neuts (auto) 9.3 H (2.0-8.3) x10*3/uL Absolute Nucleated RBC 0.000 (0.0-0.012) X10*3/uL Nucleated RBC % (auto) 0.0 (0.0-0.2) /100WBC Sodium 143 (135-145) mmol/L Potassium 4.1 (3.3-5.1) mmol/L Chloride 107 (96-108) mmol/L Carbon Dioxide 25 (22-29) mmol/L Anion Gap 15 (12-20) BUN 13 (9-16) mg/dL Creatinine 0.82 (0.5-1.4) mg/dL Estim Creat Clear Calc 53.6 Estimated GFR > 60 Random Glucose 94 (60-115) mg/dL Calcium 8.9 D (8.4-10.2) mg/dL Total Bilirubin 0.4 (0.0-1.0) mg/dL AST 21 (5-31) U/L ALT 9 (0-31) U/L Alkaline Phosphatase 48 (39-117) U/L Total Protein 6.5 (6.5-8.0) g/dL Albumin 3.8 (3.5-5.0) g/dL Urine Color Yellow Urine Appearance Hazy Urine pH 6.0 (5.0-9.0) Ur Specific Elsa 1.025 (1.005-1.025) Urine Protein Negative (Neg-Trace) mg/dL Urine Glucose (UA) Negative (Negative) mg/dL Urine Ketones Trace (Negative) mg/dL Urine Blood Trace (Negative) Urine Nitrite Negative (Negative) Ur Leukocyte Esterase Small (1+) H (Negative) Urine RBC >20 H (0-2) /HPF Urine WBC 21-50 H (0-5) /HPF Ur Squamous Epith Cells 11-20 (0-2) /HPF Urine Bacteria 4+ (None Seen) Hyaline Casts 0-2 (0-2) /LPF Influenza Type A (PCR) NEGATIVE (Negative) Influenza Type B (PCR) NEGATIVE (Negative) RSV RNA Qual (PCR) NEGATIVE (Negative) SARS-CoV-2 RNA (RT-PCR) NEGATIVE (Negative) Radiology Impression Discussion of test interpretation with radiology: I have reviewed the radiologist's reading. External Record Review History of atrial fibrillation Chronic Conditions History of atrial fibrillation status post TAVR Discharge Plan Discharge Clinical Impression: Urinary tract infection, Diverticulitis Patient Disposition: Home, Self-Care Instructions: Diverticulitis (ED), Diverticulitis Diet (ED), Urinary Tract Infection in Older Adults (ED) Prescriptions: New ciprofloxacin HCl [Cipro] 500 mg tablet 500 mg PO BID Qty: 20 0RF metronidazole 500 mg tablet 500 mg PO TID Qty: 30 0RF ondansetron 4 mg tablet,disintegrating 4 mg PO TID PRN (Reason: nausea and vomiting) 5 Days Qty: 10 0RF No Action (DME) pen needle, diabetic [Novofine 32] 32 gauge x 1/4 needle See Rx Instructions .Route Qty: 100 0RF Rx Instructions: As directed up to three times per day (DME) Stair lift See Rx Instructions .Route .MEDSUPPLY Qty: 1 0RF Rx Instructions: As directed liraglutide 0.6 mg/0.1 mL (18 mg/3 mL) pen injector 1.2 mg subcut DAILY 30 Days Qty: 6 11RF (DME) blood sugar diagnostic Strip See Rx Instructions .ROUTE .MEDSUPPLY Qty: 100 11RF Rx Instructions: FREESTYLE LITE TEST STRIPS TO CHECK THREE TIMES A DAY diclofenac sodium 1 % gel 2 g topical BID PRN (Reason: arthritis) Qty: 100 8RF Rx Instructions: apply to single elbow, wrist or hand; for hand includes palm/fingers/back of hand atorvastatin 80 mg tablet 80 mg PO DAILY Qty: 90 3RF levothyroxine 112 mcg tablet 112 mcg PO DAILY Qty: 90 1RF omeprazole 20 mg capsule,delayed release(DR/EC) 20 mg PO DAILY Qty: 90 0RF metformin 1,000 mg tablet 1,000 mg PO BIDWM Qty: 180 3RF Eliquis 5 mg tablet 5 mg PO BID Qty: 60 4RF ezetimibe 10 mg tablet 10 mg PO BEDTIME Qty: 30 1RF gabapentin 300 mg capsule 300 mg PO BEDTIME losartan 25 mg tablet 12.5 mg PO DAILY (DME) blood-glucose meter [FreeStyle Lite Meter] Kit See Rx Instructions .ROUTE .MEDSUPPLY Qty: 1 0RF Rx Instructions: As directed Referrals: Allen Cortés MD [Primary Care Provider] - 11/29/24 Print Language: Burmese
[2024-11-27] MEDS: iohexoL 350 MG/ML 100 ML INFUS..BTL IV (18:27)
[2024-11-27 18:29] VITALS: BP 149/56; PULSE 82; RESP 16; TEMP 36.7; O2SAT 95
[2024-11-27 18:41] LABS: Appearance Urine Hazy; Color Urine Yellow; Glucose Urine UA Negative (Negative); Leukocyte Esterase Urine Small (1+) (Negative); Nitrite Urine Negative (Negative); Specific Gravity - Urine 1.025 (1.005-1.025); UMIC TRIGGER UACC YES; Urine Blood Trace (Negative); Urine Ketones Trace mg/dL (Negative); Urine Protein Negative (Neg-Trace)
[2024-11-27 18:53] LABS: Bacteria Urine 4+ (None Seen); Hyaline Casts Urine 0-2 /LPF (0-2); RBC Urine >20 /HPF (0-2); UACC Culture Trigger YES; WBC Urine 21-50 /HPF (0-5)
[2024-11-27 20:33] VITALS: BP 121/52; PULSE 77; RESP 16; TEMP 37.2; O2SAT 93
[2024-11-27] MEDS: levoFLOXacin 500 MG TABLET PO (20:43)
[2024-11-27] MEDS: metroNIDAZOLE 500 MG TABLET PO (20:43)
[2024-11-27 20:50] VITALS: BP 121/52; PULSE 77; RESP 16; TEMP 37.2; O2SAT 93
== END 2024-11-27 20:58 | disposition home or self-care (01) ==
PROVIDERS: Emergency Provider Emergency Medicine Emergency Medical Services; PCP Internal Medicine
DX: N39.0 Urinary tract infection, site not specified (principal); K57.32 Diverticulitis of large intestine without perforation or abscess without bleeding; I45.10 Unspecified right bundle-branch block; R11.2 Nausea with vomiting, unspecified; I48.91 Unspecified atrial fibrillation; R10.2 Pelvic and perineal pain; E11.9 Type 2 diabetes mellitus without complications; Z79.01 Long term (current) use of anticoagulants; Z03.818 Encounter for observation for suspected exposure to other biological agents ruled out; Z79.899 Other long term (current) drug therapy; Z87.891 Personal history of nicotine dependence
CPT/HCPCS: 0241U; 36415; 74177; 80053; 81001; 85025; 87086; 93005; 99284; 99285; Q9967

== ENCOUNTER → 2024-11-27 15:32 | Outpatient (BNV) | payer MEDICARE, SELFPAY | PROVIDERS: Emergency Provider Emergency Medicine Emergency Medical Services; PCP Internal Medicine; Visit Provider Internal Medicine | DX: R94.31 Abnormal electrocardiogram [ECG] [EKG] (principal); I45.19 Other right bundle-branch block; R10.9 Unspecified abdominal pain | CPT/HCPCS: 93010 ==

== ENCOUNTER → 2024-11-27 17:32 | Outpatient (BNV) | payer MEDICARE, SELFPAY | PROVIDERS: Emergency Provider Emergency Medicine Emergency Medical Services; PCP Internal Medicine; Visit Provider Nuclear Medicine | DX: R10.9 Unspecified abdominal pain (principal); R11.0 Nausea | CPT/HCPCS: 74177 ==

== ENCOUNTER 2024-12-03 05:20 | Emergency (ER) | payer MEDICARE, SELFPAY ==
--- NOTE | ~2024-12-03 | XR_ITS ---
CLINICAL HISTORY: painful joint 4 view right wrist Comparison: 02/04/2019 12:02 PM EDT: CR: WRIST RIGHT COMPLETE [id number] Findings: No fractures or dislocations. Chondrocalcinosis of the triangular fibrocartilage complex. Advanced osteoarthritis of the triscaphe joint. Moderate osteoarthritis of the radiocarpal joints. Advanced osteoarthritic changes 1st and 2nd carpometacarpal joints. Lucent focus along the waist of the scaphoid likely degenerative. No radiopaque foreign body. Vascular calcifications. Mildly diffuse soft tissue swelling. IMPRESSION: Chronic changes without acute fracture. This document has been electronically signed by: Segundo Issa MD on 12/03/2024 06:46:51
[2024-12-03 05:31] VITALS: BP 148/74; PULSE 65; O2SAT 98
[2024-12-03 05:35] VITALS: BMI 31.7
[2024-12-03 05:47] VITALS: BP 139/58; PULSE 62; RESP 16; TEMP 36.8; O2SAT 98
[2024-12-03 05:48] LABS: MANUAL DIFF FLAG NO
[2024-12-03 05:50] LABS: Basophils Absolute Auto 0.1 X10*3/uL (0.0-0.2); Basophils Percent Auto 0.8 % (0-2); Eosinophils Absolute Auto 0.1 X10*3/uL (0.0-0.4); Eosinophils Percent Auto 1.4 % (0-4); Hematocrit 32.8 % (37.0-47.0); Hemoglobin 10.8 g/dl (12.0-16.0); Imm Gran Abs Auto 0.02 X10*3/uL (0.00-0.03); Imm Gran Pct Auto 0.3 % (0.0-0.4); Lymphocytes Absolute Auto 2.4 X10*3/uL (1.2-4.9); Lymphocytes Percent Auto 29.9 % (20-40); Mean Corpuscular HGB Conc 32.9 g/dl (31.0-35.0); Mean Corpuscular Hemoglobin 26.9 pg (27.0-33.0); Mean Corpuscular Volume 81.6 fL (80.0-98.0); Mean Platelet Volume 10.4 fL (9.4-12.3); Monocytes Absolute Auto 0.6 X10*3/uL (0.1-1.2); Monocytes Percent Auto 7.8 % (2-11); Neutrophils Absolute Auto 4.8 x10*3/uL (2.0-8.3); Neutrophils Percent Auto 59.8 % (45-73); Platelet Count 282 X10*3/uL (160-400); Red Blood Count 4.02 X10*6/uL (4.20-5.50); Red Cell Distribution Width 13.9 % (11.0-16.0)
[2024-12-03 05:55] LABS: INTERNATIONAL NORM RATIO 1.4 (0.9-1.1); Prothrombin Time 16.3 SEC (10.9-12.4)
--- NOTE | 2024-12-03 06:05 | ED.EXTPRO ---
HPI - Extremity Problem General Chief complaint: Wound/Laceration Stated complaint: VARICOSE VEIN RUPTURE Time Seen by Provider: 12/03/24 05:41 Source: patient Mode of arrival: ambulatory Limitations: no limitations History of Present Illness ED Provider: HPI Narrative: Patient's history of paroxysmal AFib on Eliquis apparently scratch her left ankle in sleep an hour ago woke up in a pool of blood applied local pressure by the time she reached here bleeding stopped from the superficial varicose vein also patient complaining of pain in the right hand which is going on for last 1 week was seen here for diverticulitis and is on Cipro and Flagyl patient also apparently scratched dorsum of the right hand on the toilet seat 1 week ago now has a increased swelling and warmth feeling Related Data Home Medications ?Medication ?Instructions ?Recorded ?Confirmed gabapentin 300 mg capsule 300 mg PO BEDTIME 07/26/24 10/26/24 losartan 25 mg tablet 12.5 mg PO DAILY 07/26/24 10/26/24 Previous Rx's ?Medication ?Instructions ?Recorded blood-glucose meter (FreeStyle #1 ea 01/10/21 Lite Meter kit) pen needle, diabetic 32 gauge x #100 ea 11/05/23/ (Novofine 32) Stair lift #1 ea 01/19/24 liraglutide 0.6 mg/0.1 mL (18 mg/3 1.2 mg (0.2 mL) subcut DAILY 30 05/16/24 mL) subcutaneous pen injector days #6 mL blood sugar diagnostic #100 ea 06/18/24 diclofenac sodium 1 % topical gel 2 g topical BID PRN arthritis #100 07/16/24 grams atorvastatin 80 mg tablet 80 mg PO DAILY #90 tabs 08/31/24 levothyroxine 112 mcg tablet 112 mcg PO DAILY #90 tabs 10/14/24 omeprazole 20 mg capsule,delayed 20 mg PO DAILY #90 caps 10/22/24 release metformin 1,000 mg tablet 1,000 mg PO BIDWM #180 tabs 10/30/24 apixaban 5 mg tablet (Eliquis) 5 mg PO BID #60 tabs 11/09/24 ezetimibe 10 mg tablet 10 mg PO BEDTIME #30 tabs 11/26/24 ciprofloxacin HCl 500 mg tablet 500 mg PO BID #20 tabs 11/27/24 (Cipro) metronidazole 500 mg tablet 500 mg PO TID #30 tabs 11/27/24 ondansetron 4 mg disintegrating 4 mg PO TID PRN nausea and 11/27/24 tablet vomiting 5 days #10 tabs doxycycline hyclate 100 mg tablet 100 mg PO BID #20 tabs 12/03/24 Allergies Allergy/AdvReac Type Severity Reaction Status Date / Time amoxicillin [Augmentin] Allergy Unknown hives Verified 12/03/24 05:35 clavulanic acid [Augmentin] Allergy Unknown hives Verified 12/03/24 05:35 furosemide Allergy Unknown unknown Verified 12/03/24 05:35 latex [LATEX] Allergy Unknown UNKNOWN Verified 12/03/24 05:35 lisinopril Allergy Unknown Unknown Verified 12/03/24 05:35 oxycodone [Percocet] Allergy Unknown Stomach Verified 12/03/24 05:35 upset tramadol Allergy Unknown Stomach Verified 12/03/24 05:35 uspet Review of Systems Review of Systems: Yes all other systems are reviewed and are negative [facility], [facility] Past Medical History Medical History Atrial fibrillation Hypothyroidism Obesity Type 2 diabetes mellitus with morbid obesity Annual physical exam Vitamin D deficiency HLD (hyperlipidemia) T2DM (type 2 diabetes mellitus) Diabetes mellitus Hypertension Surgical History History of vitrectomy History of surgery History of colonoscopy History of appendectomy History of cholecystectomy S/P JOSIE (total abdominal hysterectomy) Family History Family History Father Diabetes Mother CHF (congestive heart failure) CVD (cardiovascular disease) Brother HIV (human immunodeficiency virus infection) Social History Social History Household Members: None Housing: Condominium Do you presently have visiting nurse or other home services: No Alcohol intake: current Patient Tobacco Use Status: Former Tobacco user Tobacco use type: Cigarette Years Smoked: 30 Smoked in Last 30 Days: No e-Cigarette/Vaping Use: Never Used Second Hand Smoke Exposure: No Use of substances other than those prescribed or required for medical reasons: No Advance Directives: Yes Advance Directives on File: Yes Advance Directives Date on File: 12/15/23 Do you have a plan to hurt others: No Plan service: No Current occupational status: retired Cognitive needs: No Hearing needs: No Vision needs: No Physical Exam Vital Signs: Vital Signs: Last Vital Signs Temp 98.3 F 12/03/24 05:47 Pulse 62 12/03/24 05:47 Resp 16 12/03/24 05:47 BP 139/58 L 12/03/24 05:47 Pulse Ox 98 12/03/24 05:47 O2 Del Method Room Air 12/03/24 05:47 BMI result Body Mass Index 31.7 Appearance: Alert. Oriented X3. No acute distress. ENT: Pharynx normal. Oral Mucosa moist Neck: Normal inspection. Neck supple. CVS: Normal heart rate and rhythm. Pulses normal. Respiratory: No respiratory distress. Equal air entry bilateral, no wheezing/rales/rhonchi Abdomen: Soft and nontender. Bowel sounds are present, no mass palpable, no CVA tenderness Skin: Skin warm and dry. Normal skin color. Normal skin turgor. Extremities: No lower extremity edema. No calf tenderness no active bleeding at this time right wrist swollen warmth swelling extends all to all the way to the fingers Neuro: Oriented X 3. No motor deficit. Medications Administered Discontinued Medications Generic Name Dose Route Start Last Admin Trade Name Freq PRN Reason Stop Dose Admin Doxycycline Monohydrate 100 mg 12/03/24 06:07 12/03/24 06:16 Doxycycline Monohydrate 100 Mg Capsule PO 12/03/24 06:08 100 mg ONCE ONE Administration Medical Decision Making Medical Decision Making [facility] Narrative: Patient with bleeding from superficial varicose vein in left leg with already stopped lost about 500 mL of blood but H&H stable at this time patient is on Eliquis not bleeding from any other place also has warmth and swelling of the right hand likely from cellulitis from the scratch she had it 1 week ago patient's Cipro and Flagyl for diverticulitis will add doxycycline patient has normal WBC count sed rate is only 23 no history of gout CRP 2.70 likely from inflammation will advised patient to keep her right hand elevated follow with PCP Differential Diagnosis Differential Diagnoses: The differential diagnosis associated with the presentation includes Lab Data [facility] Lab Attestation statement: I reviewed the patient's lab results. 12/03/24 05:44 12/03/24 05:44 Labs: Lab Results 12/03/24 Range/Units 05:44 WBC 8.0 (4.8-10.8) X10*3/uL RBC 4.02 L (4.20-5.50) X10*6/uL Hgb 10.8 L (12.0-16.0) g/dl Hct 32.8 L (37.0-47.0) % MCV 81.6 (80.0-98.0) fL MCH 26.9 L (27.0-33.0) pg MCHC 32.9 (31.0-35.0) g/dl RDW 13.9 (11.0-16.0) % Plt Count 282 (160-400) X10*3/uL MPV 10.4 (9.4-12.3) fL Immature Gran % (Auto) 0.3 (0.0-0.4) % Neut % (Auto) 59.8 (45-73) % Lymph % (Auto) 29.9 (20-40) % Blount % (Auto) 7.8 (2-11) % Eos % (Auto) 1.4 (0-4) % Baso % (Auto) 0.8 (0-2) % Lymph # (Auto) 2.4 (1.2-4.9) X10*3/uL Blount # (Auto) 0.6 (0.1-1.2) X10*3/uL Eos # (Auto) 0.1 (0.0-0.4) X10*3/uL Baso # (Auto) 0.1 (0.0-0.2) X10*3/uL Abs Immat Gran (auto) 0.02 (0.00-0.03) X10*3/uL Absolute Neuts (auto) 4.8 (2.0-8.3) x10*3/uL Absolute Nucleated RBC 0.000 (0.0-0.012) X10*3/uL Nucleated RBC % (auto) 0.0 (0.0-0.2) /100WBC ESR 23 H (0-20) MM/HR PT 16.3 H (10.9-12.4) SEC INR 1.4 H (0.9-1.1) Sodium 141 (135-145) mmol/L Potassium 3.8 (3.3-5.1) mmol/L Chloride 107 (96-108) mmol/L Carbon Dioxide 23 (22-29) mmol/L Anion Gap 15 (12-20) BUN 12 (9-16) mg/dL Creatinine 0.85 (0.5-1.4) mg/dL Estim Creat Clear Calc 50.8 Estimated GFR > 60 Random Glucose 139 H (60-115) mg/dL Estimat Average Glucose 134 mg/dL Hemoglobin A1c % 6.3 H (<6.0) % Calcium 9.0 (8.4-10.2) mg/dL Total Bilirubin 0.3 (0.0-1.0) mg/dL AST 21 (5-31) U/L ALT 12 (0-31) U/L Alkaline Phosphatase 45 (39-117) U/L C-Reactive Protein 2.70 H (< or = 0.50) mg/dL Total Protein 6.5 (6.5-8.0) g/dL Albumin 3.5 (3.5-5.0) g/dL Triglycerides 92 (<150) mg/dL Cholesterol 99 (<200) mg/dL LDL Cholesterol, Calc 36 (<100) mg/dL HDL Cholesterol 45 (>40) mg/dL Discharge Plan Discharge Clinical Impression: Varicose vein of leg, Cellulitis Patient Disposition: Home, Self-Care Instructions: Cellulitis (ED), Venous Insufficiency (DC) Additional Instructions: Keep your left hand elevated you have cellulitis Continue your antibiotics will add doxycycline Local care of varicose vein as advised Follow with your PCP if not better Prescriptions: New doxycycline hyclate 100 mg tablet 100 mg PO BID Qty: 20 0RF No Action (DME) pen needle, diabetic [Novofine 32] 32 gauge x 1/4 needle See Rx Instructions .Route Qty: 100 0RF Rx Instructions: As directed up to three times per day (DME) Stair lift See Rx Instructions .Route .MEDSUPPLY Qty: 1 0RF Rx Instructions: As directed liraglutide 0.6 mg/0.1 mL (18 mg/3 mL) pen injector 1.2 mg subcut DAILY 30 Days Qty: 6 11RF (DME) blood sugar diagnostic Strip See Rx Instructions .ROUTE .MEDSUPPLY Qty: 100 11RF Rx Instructions: FREESTYLE LITE TEST STRIPS TO CHECK THREE TIMES A DAY diclofenac sodium 1 % gel 2 g topical BID PRN (Reason: arthritis) Qty: 100 8RF Rx Instructions: apply to single elbow, wrist or hand; for hand includes palm/fingers/back of hand atorvastatin 80 mg tablet 80 mg PO DAILY Qty: 90 3RF levothyroxine 112 mcg tablet 112 mcg PO DAILY Qty: 90 1RF omeprazole 20 mg capsule,delayed release(DR/EC) 20 mg PO DAILY Qty: 90 0RF metformin 1,000 mg tablet 1,000 mg PO BIDWM Qty: 180 3RF Eliquis 5 mg tablet 5 mg PO BID Qty: 60 4RF ezetimibe 10 mg tablet 10 mg PO BEDTIME Qty: 30 1RF ciprofloxacin HCl [Cipro] 500 mg tablet 500 mg PO BID Qty: 20 0RF metronidazole 500 mg tablet 500 mg PO TID Qty: 30 0RF ondansetron 4 mg tablet,disintegrating 4 mg PO TID PRN (Reason: nausea and vomiting) 5 Days Qty: 10 0RF gabapentin 300 mg capsule 300 mg PO BEDTIME losartan 25 mg tablet 12.5 mg PO DAILY (DME) blood-glucose meter [FreeStyle Lite Meter] Kit See Rx Instructions .ROUTE .MEDSUPPLY Qty: 1 0RF Rx Instructions: As directed Print Language: Vietnamese
[2024-12-03 06:09] LABS: Alanine Aminotransferase 12 U/L (0-31); Albumin Level 3.5 g/dL (3.5-5.0); Alkaline Phosphatase 45 U/L (39-117); Anion Gap 15 (12-20); Aspartate Amino Transferase 21 U/L (5-31); Bilirubin Total 0.3 mg/dL (0.0-1.0); Blood Urea Nitrogen 12 mg/dL (9-16); Carbon Dioxide 23 mmol/L (22-29); Chloride 107 mmol/L (96-108); Creatinine Clr Calc Pharmacy 50.8; Estimated Glomerular Filt Rate > 60; Glucose Random 139 mg/dL (60-115); Potassium 3.8 mmol/L (3.3-5.1); Sodium 141 mmol/L (135-145); Total Protein 6.5 g/dL (6.5-8.0)
[2024-12-03] MEDS: Doxycycline Monohydrate 100 MG CAPSULE PO (06:16)
[2024-12-03 06:45] LABS: Erythrocyte Sedimentation Rate 23 MM/HR (0-20)
[2024-12-03 07:19] LABS: Estimated Average Glucose 134 mg/dL; Hemoglobin A1C 129.1373 umol/L; Hemoglobin A1c % 6.3 % (<6.0); Total Hemoglobin (HGBA1C) 2814.6902 umol/L
[2024-12-03 07:22] LABS: Cholesterol 99 mg/dL (<200); HDL Cholesterol 45 mg/dL (>40); LDL Cholesterol Calculated 36 mg/dL (<100); Triglycerides 92 mg/dL (<150)
[2024-12-03 07:47] LABS: Uric Acid 6.6 mg/dL (2.4-5.7)
[2024-12-03 09:33] VITALS: BP 136/72; PULSE 60; RESP 18; TEMP 36.8; O2SAT 98
[2024-12-03 09:34] VITALS: BP 136/72; PULSE 60; RESP 18; TEMP 36.8; O2SAT 98
== END 2024-12-03 09:34 | disposition home or self-care (01) ==
PROVIDERS: Emergency Provider Internal Medicine; PCP Internal Medicine
DX: I83.12 Varicose veins of left lower extremity with inflammation (principal); L03.113 Cellulitis of right upper limb; E11.9 Type 2 diabetes mellitus without complications; I10 Essential (primary) hypertension; E03.9 Hypothyroidism, unspecified; I48.0 Paroxysmal atrial fibrillation; E78.5 Hyperlipidemia, unspecified; Z79.02 Long term (current) use of antithrombotics/antiplatelets; Z79.01 Long term (current) use of anticoagulants; Z79.899 Other long term (current) drug therapy; Z79.84 Long term (current) use of oral hypoglycemic drugs
CPT/HCPCS: 36415; 73110; 80053; 80061; 83036; 84550; 85025; 85610; 85652; 86140; 99283; 99284

== ENCOUNTER → 2024-12-03 06:07 | Outpatient (BNV) | payer MEDICARE, SELFPAY | PROVIDERS: Emergency Provider Internal Medicine; Visit Provider Radiology Diagnostic Radiology | DX: M25.531 Pain in right wrist (principal) | CPT/HCPCS: 73110 ==

== ENCOUNTER 2024-12-07 14:48 | Outpatient (AMB) | payer MEDICARE, SELFPAY ==
[2024-12-07 14:51] VITALS: BP 118/66; PULSE 68; TEMP 36.2; O2SAT 99; BMI 30.6
--- NOTE | 2024-12-07 14:51 | A.OFFPC_ITS ---
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 Accompanied by: Self / Same As Patient Allergies amoxicillin [Augmentin] Allergy (Unknown, Verified 12/07/24 15:20) hives clavulanic acid [Augmentin] Allergy (Unknown, Verified 12/07/24 15:20) hives furosemide Allergy (Unknown, Verified 12/07/24 15:20) unknown latex [LATEX] Allergy (Unknown, Verified 12/07/24 15:20) UNKNOWN lisinopril Allergy (Unknown, Verified 12/07/24 15:20) Unknown oxycodone [Percocet] Allergy (Unknown, Verified 12/07/24 15:20) Stomach upset tramadol Allergy (Unknown, Verified 12/07/24 15:20) Stomach uspet Medication List - Last Reconciled 12/07/24 by Adam Dumont MD apixaban (Eliquis) 5 mg PO BID atorvastatin 80 mg PO DAILY blood sugar diagnostic FREESTYLE LITE TEST STRIPS TO CHECK THREE TIMES A DAY blood-glucose meter (FreeStyle Lite Meter kit) As directed ciprofloxacin HCl (Cipro) 500 mg PO BID diclofenac sodium 1% 2 grams topical BID PRN doxycycline hyclate 100 mg PO BID ezetimibe 10 mg PO BEDTIME gabapentin 300 mg PO BEDTIME levothyroxine 112 mcg PO DAILY liraglutide 1.2 mg (0.2 mL) subcut DAILY 30 days losartan 12.5 mg PO DAILY metformin 1,000 mg PO BIDWM metronidazole 500 mg PO TID omeprazole 20 mg PO DAILY ondansetron 4 mg PO TID PRN 5 days pen needle, diabetic (Novofine 32) As directed up to three times per day sertraline 12.5 mg PO DAILY [Stair lift As directed] Tobacco use date assessed: 12/07/24 Fall risk assessment: No Falls in past year Last assessed Fall Risk: 12/07/24 Dental Screening Dental Screen Date: 12/07/24 Did you have a dental visit in the last 12 months?: No Did you have a dental problem in the last 6 months where you did not have access to dental care?: No Was dental information given to patient?: No HPI FOLLOW UP ON htn HPI Details Patient comes in today for her follow-up visit States that she feels okay She denies any headaches or dizziness Denies any chest pains, no shortness of breath No nausea/vomiting, no abdominal pain No change in bowel habits noted She is currently finishing up some Abx for diverticulitis/colitis and states that her GI symptoms have improved a lot but she is presently experiencing increased vaginal itching/irritation and thinks that these are due to vaginal yeast infection as a result of her current Abx Tx She had her follow up labs done while at the ER a few days ago - to discuss her results [facility] Medical History (Updated 12/11/24 @ 19:27 by Adam Dumont MD) Obesity (BMI 30-39.9) Neuropathy Acquired hypothyroidism Mixed hyperlipidemia Essential hypertension Atrial fibrillation Hypothyroidism Obesity Type 2 diabetes mellitus with morbid obesity Annual physical exam Vitamin D deficiency HLD (hyperlipidemia) T2DM (type 2 diabetes mellitus) Diabetes mellitus Hypertension Surgical History History of vitrectomy History of surgery History of colonoscopy History of appendectomy History of cholecystectomy S/P JOSIE (total abdominal hysterectomy) Family History Father Diabetes Mother CHF (congestive heart failure) CVD (cardiovascular disease) Brother HIV (human immunodeficiency virus infection) Social History Household Members: None Housing: Condominium Do you presently have visiting nurse or other home services: No Alcohol intake: current Patient Tobacco Use Status: Former Tobacco user Tobacco use type: Cigarette Years Smoked: 30 e-Cigarette/Vaping Use: Never Used Second Hand Smoke Exposure: No Advance Directives Date on File: 12/15/23 service: No Current occupational status: retired Cognitive needs: No Hearing needs: No Vision needs: No Questionnaire PHQ-9 Over the last 2 weeks, how often have you been bothered by any of the following problems? 1. Little interest or pleasure in doing things: not at all 2. Feeling down, depressed, or hopeless: not at all 3. Trouble falling or staying asleep, or sleeping too much: not at all 4. Feeling tired or having little energy: not at all 5. Poor appetite or overeating: not at all 6. Feeling bad about yourself - or that you are a failure or have let yourself or your family down: not at all 7. Trouble concentrating on things, such as reading the newspaper or watching television: not at all 8. Moving or speaking so slowly that other people could have noticed. Or the opposite - being so fidgety or restless that you have been moving around a lot more than usual: not at all 9. Thoughts that you would be better off or of hurting yourself in some way: not at all Total score: 0 Depression Screening Interpretation: Negative Depression Screening Done: Yes 93939 - PHQ-9 Billing: Yes Source: Developed by Drs. Mendez Sanz, Shannan Quintanilla, Fuentes Sales and colleagues, with an educational aurelia from [employer]. Thrive Questionnaire Date Thrive assessed: 12/07/24 I am a: Patient What is your living situation today?: I have a steady place to live Within the past 12 months, did the food you bought not last and you didn't have the money to get more?: Never true Within the past 12 months, did you worry whether your food would run out before you got money to buy more?: Never true Do you have trouble paying for medicines?: No Do you have trouble getting transportation to medical appointments?: No Do you have trouble paying your heating and electricity bill?: No Do you have trouble taking care of your child, family member or friend?: No Do you have trouble with day-to-day activities such as bathing, preparing meals, shopping, managing finances, etc.?: No Are you currently unemployed and looking for a job?: No Are you interested in more education?: No Please select the resources that you would like help with: None Currently or been in a relationship where the following occur: No concerns reported THRIVE Score: 0 AUDIT C Alcohol Use Questionnaire (AUDIT-C) 1. How often do you have a drink containing alcohol?: Never 3. How often do you have six or more drinks on one occasion?: Never Total Score: 0 Score Reviewed/Action Taken: Yes ARSLAN-7 AMB Questionnaire ARSLAN-7 Date ARSLAN - 7 assessed: 12/07/24 Feeling nervous, anxious, or on edge: 0 = Not at all Not being able to stop or control worryin = Not at all Worrying too much about different things: 0 = Not at all Trouble relaxin = Not at all Being so restless that it is hard to sit still: 0 = Not at all Becoming easily annoyed or irritable: 0 = Not at all Feeling afraid as if something awful might happen: 0 = Not at all Total ARSLAN-7 score (0-4 normal; 5-9 mild; 10-14 moderate; 15-21 severe): 0 Source: Developed by Drs. Mendez Sanz, Shannan Quintanilla, Fuentes Sales and colleagues, with an educational aurelia from [employer]. Review of Systems Const Denies chills, Denies fatigue, Denies fever(s) and Denies headache(s) ENT Denies dysphagia, Denies dizziness, Denies otalgia, Denies headache(s), Denies neck pain, Denies odynophagia and Denies sore throat Card Denies chest pain, Denies palpitations and Denies dyspnea Resp Denies chest congestion, Denies cough and Denies dyspnea GI Denies abdominal pain, Denies constipation, Denies dysphagia, Denies heartburn, Denies diarrhea, Denies nausea, Denies odynophagia and Denies vomiting Denies difficulty voiding, Denies nocturia, Denies dysuria, Denies urinary urgency and Reports vaginal pruritus Musc Denies back pain and Denies neck pain Skin/Breast Denies rash Neuro Denies dizziness and Denies headache(s) Endo Denies fatigue and Denies palpitations Physical exam (Primary Care) Vital Signs: Last Vital Signs Temp 97.1 F 12/07/24 14:51 Pulse 68 12/07/24 14:51 BP 118/66 12/07/24 14:51 Pulse Ox 99 12/07/24 14:51 Oxygen Delivery Method Room Air 12/07/24 14:51 BMI result Body Mass Index 30.6 Tobacco/Smoking Status: Tobacco use Status Tobacco use date assessed 12/07/24 12/07/24 14:54 Patient Tobacco Use Status Former Tobacco user 12/07/24 14:54 Tobacco use type Cigarette 12/07/24 14:54 e-Cigarette/Vaping Use Never Used 12/07/24 14:54 PHQ-9: PHQ-9 Score PHQ-9: Total score 0 12/07/24 15:29 Depression Screening Interpretation: Negative Thrive Assessment: Date of Thrive Assessment Date Thrive assessed 12/07/24 12/07/24 14:54 Currently or been in a relationship where the following occur: No concerns reported Const General: no acute distress and alert HENMT Ears: TM's normal bilaterally and EAC's normal Throat: Yes posterior oropharynx normal and Yes tonsils normal (no TP congestion) Neck Neck: Yes supple and No lymphadenopathy Thyroid: Thyroid normal Resp Auscultation: clear to auscultation bilaterally, no rales and no wheezes Cardio Rate: regular rate Rhythm: regular rhythm Heart sounds: no murmurs GI Palpation (GI): Soft to palpation and nontender Auscultation: normal bowel sounds General: Yes no CVA tenderness Back/Spine/Pelvis Back: no CVA tenderness Skin Rashes: no rashes Extrem General: Yes no clubbing, cyanosis or edema Results Reviewed Results Reviewed: Laboratory Tests 11/27/24 12/03/24 18:36 05:44 WBC 8.0 Hgb 10.8 L Hct 32.8 L Plt Count 282 ESR 23 H Sodium 141 Potassium 3.8 Creatinine 0.85 Estimated GFR > 60 Random Glucose 139 H Hemoglobin A1c % 6.3 H Uric Acid 6.6 H Calcium 9.0 AST 21 ALT 12 C-Reactive Protein 2.70 H Triglycerides 92 Cholesterol 99 LDL Cholesterol, Calc 36 HDL Cholesterol 45 Ur Specific [place] 1.025 Urine Protein Negative Urine Glucose (UA) Negative Urine Blood Trace Urine Nitrite Negative Ur Leukocyte Esterase Small (1+) H Coding Level of Care Code Est Pt Level 4 (15809) Diagnoses Paroxysmal atrial fibrillation I48.0 Cerebrovascular accident (CVA), unspecified mechanism I63.9 CVA mechanism: unspecified Essential hypertension I10 Mixed hyperlipidemia E78.2 Type 2 diabetes mellitus with diabetic neuropathy, without long-term current use of insulin E11.40 Diabetes mellitus type: type 2 Diabetes mellitus senior care insulin use: without senior care use Diabetes mellitus complication status: with neurologic complications Diabetes mellitus complication detail: with unspecified neuropathy Acquired hypothyroidism E03.9 Neuropathy G62.9 Vaginal candidiasis B37.31 Obesity (BMI 30-39.9) E66.9 Additional Codes PHQ-9 - 05745 - PHQ-9 Billing: Yes ([id number]) Assessment & Plan Assessment & Plan (1) Paroxysmal atrial fibrillation: Code(s): I48.0 - Paroxysmal atrial fibrillation Category: Medical Plan: Patient is currently in sinus rhythm Continue Eliquis 5 mg BID for thromboembolism prophylaxis (2) CVA (cerebral vascular accident): Code(s): I63.9 - Cerebral infarction, unspecified Category: Medical Qualifiers: CVA mechanism: unspecified Qualified Code(s): I63.9 - Cerebral infarction, unspecified Plan: Patient presented to the hospital on 06/26/2024 with acute onset left-sided weakness and dysarthria and was found to have a right M2 occlusion seen on head CTA She was eventually transferred to [facility] were repeat CTA showed proximal inferior M2 occlusion As his symptoms at the time were felt to be mild, thrombectomy was held She was also noted to have new onset atrial fibrillation at the time Repeat head CT done a few days later ruled out hemorrhagic conversion and patient was started instead on Eliquis and was referred to physical therapy, who recommended short-term rehab Continue Eliquis 5 mg BID (3) Essential hypertension: Code(s): I10 - Essential (primary) hypertension Category: Medical Plan: Reinforced low sodium diet - goal is systolic BP of 120 to 130 mm or less Continue Losartan 12.5 mg QD (4) Mixed hyperlipidemia: Code(s): E78.2 - Mixed hyperlipidemia Category: Medical Plan: Results of her labs done at the ER a week ago reviewed and discussed with patient Reinforced low cholesterol diet Continue Atorvastatin 80 mg QD and Ezetimibe 10 mg QD Will have patient recheck her labs and fasting lipids in 4 months for follow-up (5) Diabetes mellitus: Comment: 20 min reviewing chart evaluating patient and documenting Code(s): E11.9 - Type 2 diabetes mellitus without complications Category: Medical Qualifiers: Diabetes mellitus type: type 2 Diabetes mellitus senior care insulin use: without senior care use Diabetes mellitus complication status: with neurologic complications Diabetes mellitus complication detail: with unspecified neuropathy Qualified Code(s): E11.40 - Type 2 diabetes mellitus with diabetic neuropathy, unspecified Plan: Her HgbA1c was at 6.3% on her recent labs - goal is <6.5% Reinforced diabetic diet Continue Metformin 1000 mg BID and Liraglutide 1.2 mg QD (6) Acquired hypothyroidism: Code(s): E03.9 - Hypothyroidism, unspecified Category: Medical Plan: Continue Levothyroxine 112 mcg QD Will recheck her TFTs in 4 months (7) Neuropathy: Code(s): G62.9 - Polyneuropathy, unspecified Category: Medical Plan: Continue Gabapentin 300 mg Q HS (8) Vaginal candidiasis: Code(s): B37.31 - Acute candidiasis of vulva and vagina Category: Medical Plan: Is likely antibiotic-induced Will start her for now on Terconazole 0.8% vaginal cream QD x 3 days Will have her take Fluconazole 150 mg x 1 dose AFTER she is finished with all of her current Abx Tx (9) Obesity (BMI 30-39.9): Code(s): E66.9 - Obesity, unspecified Category: Medical Plan: Reinforced diet/exercise as tolerated/lose weight Plan Follow up with PCP in 4 months Orders: Orders Complete Blood Count Auto Diff 4 Months D64.9 - Anemia, unspecified Comprehensive [place]. Panel Fast 4 Months E78.00 - Pure hypercholesterolemia, unspecified Hemoglobin A1c 4 Months E11.9 - Type 2 diabetes mellitus without complications Lipid Panel 4 Months E78.00 - Pure hypercholesterolemia, unspecified Microalbumin, Random (w Creat) 4 Months E11.9 - Type 2 diabetes mellitus without complications Thyroid Stimulating Hormone 4 Months E03.9 - Hypothyroidism, unspecified Free T4 (Free Thyroxine) 4 Months E03.9 - Hypothyroidism, unspecified Vitamin D 25-OH Total 4 Months E55.9 - Vitamin D deficiency, unspecified UA CC w/rflx Micro + Cult 4 Months R30.0 - Dysuria Medications: New terconazole 0.8% 1 appful vaginal BEDTIME 3 days 20 grams 0RF fluconazole may repeat second dose 72 hrs after first dose if symptoms persist 150 mg PO Q3D 2 tabs 0RF Refilled blood-glucose meter (FreeStyle Lite Meter kit) As directed 1 ea 0RF E11.9 - Type 2 diabetes mellitus without complications
== END 2024-12-07 15:33 | disposition home or self-care (01) ==
PROVIDERS: PCP Internal Medicine; Visit Provider Internal Medicine
DX: I48.0 Paroxysmal atrial fibrillation (principal); I63.9 Cerebral infarction, unspecified; I10 Essential (primary) hypertension; E78.2 Mixed hyperlipidemia; E11.40 Type 2 diabetes mellitus with diabetic neuropathy, unspecified; E03.9 Hypothyroidism, unspecified; G62.9 Polyneuropathy, unspecified; B37.31 Acute candidiasis of vulva and vagina; E66.9 Obesity, unspecified

== ENCOUNTER → 2024-12-07 14:48 | Outpatient (BNVA) | payer MEDICARE, SELFPAY | PROVIDERS: PCP Internal Medicine; Visit Provider Internal Medicine | DX: I10 Essential (primary) hypertension (principal); I48.0 Paroxysmal atrial fibrillation; E78.2 Mixed hyperlipidemia; E11.40 Type 2 diabetes mellitus with diabetic neuropathy, unspecified; D64.9 Anemia, unspecified; E78.00 Pure hypercholesterolemia, unspecified; E03.9 Hypothyroidism, unspecified; E55.9 Vitamin D deficiency, unspecified; R30.0 Dysuria; Z86.73 Personal history of transient ischemic attack (TIA), and cerebral infarction without residual deficits | CPT/HCPCS: 96127; 99212 ==

== ENCOUNTER 2024-12-15 13:13 | Emergency (ER) | payer MEDICARE, SELFPAY ==
--- NOTE | ~2024-12-15 | XR_ITS ---
EXAMINATION: XR HIP, LEFT CLINICAL INFORMATION: fall/pain COMPARISON: AP pelvis 10/10/2023. TECHNIQUE: AP pelvis, and 2 views left hip. FINDINGS: There is patient obliquity to the left. There is mild diffuse osteopenia. No definite acute fracture, dislocation, or suspicious bone lesion. Mild degenerative changes present in both hip joints. Femoral heads are normal in contour with no evidence of AVN. Pelvis appears intact. There is a large right iliac gluteal enthesophyte, unchanged. Sacral arches appear intact. SI joints demonstrate degenerative changes but are otherwise normal. Degenerative changes of the lower lumbar spine. Soft tissues demonstrate vascular calcifications. XR/XR hip LT w PEL 1V IMPRESSION: 1. No definite acute fracture or dislocation. Stable exam. Electronically signed by: Jordy Bryan MD 12/15/2024 03:02 PM [facility]
--- NOTE | ~2024-12-15 | CT_ITS ---
EXAMINATION: CT CERVICAL SPINE WITHOUT IV CONTRAST HISTORY: fall. TECHNIQUE: Helical CT of the cervical spine was performed per standard departmental protocol. Coronal and sagittal reformatted images were also evaluated. One or more of the following techniques was used for dose reduction: Automated exposure control, adjustment of the mA and/or kV according to patient size, use of iterative reconstruction technique. DLP: 317.13 mGy-cm COMPARISON: Comparison is made with the prior examination dated 11/25/2016. FINDINGS: CERVICAL SPINE: The vertebral bodies maintain normal height without evidence of fracture or subluxation. There is straightening of the normal cervical lordosis. There is moderate to severe degenerative disc disease at C4-5 C5-6 with disc space narrowing and osteophyte formation. More moderate degenerative changes are noted at the remaining levels. There is uncovertebral joint hypertrophy and facet osteoarthritis causing right neural foraminal stenosis at C3-4 and C4-5 and bilateral neural foraminal stenosis at C5-6 and C6-7. Evaluation for disc pathology is limited by lack of intrathecal contrast material. BRAIN: The visualized portion of the brain is unremarkable. SINUSES: The visualized paranasal sinuses, mastoid air cells and middle ear cavities are unremarkable. LUNG APICES: The visualized lung apices are clear. SOFT TISSUES: There is calcification of the internal carotid arteries. CT/CT cervical spine wo IV con IMPRESSION: No evidence of fracture or malalignment of the cervical spine. Electronically signed by: Mendez Allan MD 12/15/2024 02:27 PM [facility]
--- NOTE | ~2024-12-15 | XR_ITS ---
EXAMINATION: XR KNEE, LEFT CLINICAL INFORMATION: pain, fall COMPARISON: 08/05/2022. TECHNIQUE: Two views of the left knee. FINDINGS: Lateral view is significantly limited due to obliquity. Patient could not tolerate positioning due to pain. No definitive fracture, dislocation, or suspicious bone lesion. Diffuse chondrocalcinosis in the medial lateral compartments. Mild to moderate joint space narrowing with small marginal osteophytes medial and lateral compartments, and patellofemoral compartment. There is patella wendi. Allowing for obliquity, no significant joint effusion. Soft tissues appear normal aside from arterial and venous calcifications. XR/XR knee LT 2V IMPRESSION: 1. No acute bony abnormalities left knee. 2. Chondrocalcinosis, and mild to moderate arthrosis in all 3 compartments. 3. Patella wendi. 4. Allowing for obliquity, no significant joint effusion. Electronically signed by: Jordy Bryan MD 12/15/2024 02:57 PM [facility]
--- NOTE | ~2024-12-15 | XR_ITS ---
CLINICAL HISTORY: fall Chest and left ribs. Comparison 12/11/2023. Findings: Body habitus limits the study. Heart size is upper limits of normal. No focal consolidation or pleural effusion is seen. No pneumothorax is identified. Impression: No acute fractures are identified. This document has been electronically signed by: Du Luz MD on 12/15/2024 18:21:02
--- NOTE | ~2024-12-15 | CT_ITS ---
EXAMINATION: CT HEAD WITHOUT IV CONTRAST HISTORY: fall. TECHNIQUE: Unenhanced helical CT of the head was performed per standard departmental protocol. Coronal and sagittal reformats of the head were also evaluated. One or more of the following techniques was used for dose reduction: Automated exposure control, adjustment of the mA and/or kV according to patient size, use of iterative reconstruction technique. DLP: 655.20 mGy-cm COMPARISON: Comparison is made with the prior examination dated 06/26/2024. FINDINGS: BRAIN: There is diffuse prominence of the ventricular system and cortical sulci, consistent with atrophy. Periventricular and subcortical white matter hypodensities are noted which are nonspecific, but often seen in the setting of small vessel ischemic disease. There is encephalomalacia in the posterior right frontotemporal region consistent with an old infarct. There is no mass effect or midline shift. No intra- or extra-axial fluid collections are identified. SINUSES: The visualized paranasal sinuses are clear. The mastoid air cells and middle ear cavities are well pneumatized. ORBITS: The visualized orbits are unremarkable. BONES/SOFT TISSUES: The extracranial soft tissues are unremarkable. The calvarium is intact. No suspicious lytic or sclerotic lesions. CT/CT head/brain wo IV con IMPRESSION: No acute intracranial abnormality. Electronically signed by: Mendez Allan MD 12/15/2024 02:22 PM [facility]
--- NOTE | ~2024-12-15 | XR_ITS ---
EXAMINATION: XR ELBOW, LEFT CLINICAL INFORMATION: fall COMPARISON: None available. TECHNIQUE: AP, lateral, and oblique views of the left elbow. FINDINGS: AP and oblique views are somewhat limited due to of the patient to tolerate adequate positioning due to pain. No fracture, dislocation, or suspicious bone lesion. Radial head appears intact allowing for obliquity. Mild arthritis present in the radiocapitellar and ulnar trochlear joints. Small olecranon spur. There are enthesophytes of the lateral epicondyles. There is no evidence of joint effusion. No soft tissue abnormalities. XR/XR elbow LT min 3V IMPRESSION: 1. No definite acute fracture or dislocation left elbow allowing for suboptimal positioning. No joint effusion. Electronically signed by: Jordy Bryan MD 12/15/2024 03:06 PM [facility]
--- NOTE | 2024-12-15 13:24 | ECG_ITS ---
Test Reason : AMS Blood Pressure : */* mmHG Vent. Rate : 70 BPM Atrial Rate : 70 BPM P-R Int : 158 ms QRS Dur : 96 ms QT Int : 392 ms P-R-T Axes : -3 82 30 degrees QTcB Int : 423 ms Sinus rhythm with Premature atrial complexes Otherwise normal ECG When compared with ECG of 27-Nov-2024 15:54, Premature atrial complexes are now Present Incomplete right bundle branch block is no longer Present Nonspecific T wave abnormality no longer evident in Lateral leads Referred By: Avery Rajan Electronically Signed By: SISI SOSA MD
[2024-12-15 13:25] VITALS: BP 140/90; BP 148/45; PULSE 76; PULSE 82; RESP 18; TEMP 36.8; O2SAT 98; O2SAT 99; BMI 28.4
[2024-12-15 13:48] LABS: MANUAL DIFF FLAG NO
[2024-12-15 13:53] LABS: Hemoglobin 10.4 g/dl (12.0-16.0); Red Blood Count 3.95 X10*6/uL (4.20-5.50); White Blood Count 11.8 X10*3/uL (4.8-10.8)
[2024-12-15 13:54] LABS: Basophils Absolute Auto 0.1 X10*3/uL (0.0-0.2); Basophils Percent Auto 0.4 % (0-2); Eosinophils Percent Auto 0.3 % (0-4); Hematocrit 32.8 % (37.0-47.0); Imm Gran Abs Auto 0.05 X10*3/uL (0.00-0.03); Imm Gran Pct Auto 0.4 % (0.0-0.4); Lymphocytes Absolute Auto 1.7 X10*3/uL (1.2-4.9); Mean Corpuscular HGB Conc 31.7 g/dl (31.0-35.0); Mean Corpuscular Hemoglobin 26.3 pg (27.0-33.0); Mean Platelet Volume 10.8 fL (9.4-12.3); Monocytes Absolute Auto 0.8 X10*3/uL (0.1-1.2); Neutrophils Absolute Auto 9.2 x10*3/uL (2.0-8.3); Neutrophils Percent Auto 77.9 % (45-73); Platelet Count 310 X10*3/uL (160-400); Red Cell Distribution Width 14.4 % (11.0-16.0)
[2024-12-15 13:58] LABS: Partial Thromboplastin Time 36.4 SEC (26.0-36.8)
--- NOTE | 2024-12-15 14:04 | PC.NURSE ---
patient presents to ED from home, patient had increased lower extrem weakness and had a fall at home, patient endorses hitting the back of head, unknown loc. patient is on blood thinners. patient poc 196 upon arrival, patient c collar in place, has neck and back pain. patient also stated that her left elbow hurt with movement/palpation- unsure if she landed on left side, states she feels pins and needles on left arm. patient pupils equal and reactive to light, remains alert and oriented x3, speech seems significantly slurred, seems as if she is word searhing. #20 started in the left FA, labs obtained and sent. patient on tele monitor
[2024-12-15 14:07] LABS: Alanine Aminotransferase 8 U/L (0-31); Albumin Level 3.8 g/dL (3.5-5.0); Alkaline Phosphatase 45 U/L (39-117); Anion Gap 16 (12-20); Aspartate Amino Transferase 26 U/L (5-31); Bilirubin Total 0.5 mg/dL (0.0-1.0); Blood Urea Nitrogen 14 mg/dL (9-16); Carbon Dioxide 22 mmol/L (22-29); Chloride 106 mmol/L (96-108); Creatinine Clr Calc Pharmacy 56.6; Estimated Glomerular Filt Rate > 60; Glucose Random 90 mg/dL (60-115); Magnesium 1.3 mg/dL (1.6-2.6); Potassium 4.3 mmol/L (3.3-5.1); Sodium 140 mmol/L (135-145); Total Protein 7.1 g/dL (6.5-8.0)
[2024-12-15 14:12] LABS: Troponin-I High Sensitivity 9.7 ng/L (<3.5-17.0)
--- NOTE | 2024-12-15 14:14 | ED_ITS ---
HPI - Fall General Chief Complaint: Fall Stated Complaint: FALL,+THIN,?LOC,+COL,NECK/LT ARM SIDE PAIN PER EMS Time Seen by Provider: 12/15/24 13:24 Source: patient, family, EMS, RN notes reviewed and old records reviewed Mode of arrival: EMS History of Present Illness ED Provider: Magdalena Castano PA-C HPI Narrative: 39-year-old female with a past medical history HTN, diabetes, HLD, hypothyroid, AFib on Eliquis, CVA with left-sided residual deficits, presenting to the ED via EMS s/p unwitnessed fall at home with + head strike. Patient states she was feeling acute on chronic LLE weakness causing her to fall. Unknown LOC. Reports left elbow, knee, and left leg pain at present. Patient denies other complaints at present including headache, neck pain, CP/SOB, other symptoms prior to fall. Related Data Home Medications ?Medication ?Instructions ?Recorded ?Confirmed gabapentin 300 mg capsule 300 mg PO BEDTIME 07/26/24 12/16/24 losartan 25 mg tablet 25 mg PO DAILY 07/26/24 12/16/24 sertraline 25 mg tablet 25 mg PO DAILY 12/07/24 12/16/24 cholecalciferol (vitamin D3) 25 25 mcg PO DAILY 12/16/24 12/16/24 mcg (1,000 unit) tablet (Vitamin D3) cyanocobalamin (vitamin B-12) 250 500 mcg PO DAILY 12/16/24 12/16/24 mcg tablet Previous Rx's ?Medication ?Instructions ?Recorded pen needle, diabetic 32 gauge x #100 ea 11/05/2311/26 (Novofine 32) Stair lift #1 ea 01/19/24 blood sugar diagnostic #100 ea 06/18/24 atorvastatin 80 mg tablet 80 mg PO DAILY #90 tabs 08/31/24 levothyroxine 112 mcg tablet 112 mcg PO DAILY #90 tabs 10/14/24 omeprazole 20 mg capsule,delayed 20 mg PO DAILY #90 caps 10/22/24 release metformin 1,000 mg tablet 1,000 mg PO BIDWM #180 tabs 10/30/24 apixaban 5 mg tablet (Eliquis) 5 mg PO BID #60 tabs 11/09/24 ezetimibe 10 mg tablet 10 mg PO BEDTIME #30 tabs 11/26/24 blood-glucose meter (FreeStyle #1 ea 12/07/24 Lite Meter kit) liraglutide 0.6 mg/0.1 mL (18 mg/3 1.2 mg (0.2 mL) subcut DAILY 30 12/15/24 mL) subcutaneous pen injector days #6 mL cefuroxime axetil 250 mg tablet 250 mg PO BID 7 days #14 tabs 12/16/24 Allergies Allergy/AdvReac Type Severity Reaction Status Date / Time amoxicillin [Augmentin] Allergy Unknown hives Verified 12/15/24 13:26 clavulanic acid [Augmentin] Allergy Unknown hives Verified 12/15/24 13:26 furosemide Allergy Unknown unknown Verified 12/15/24 13:26 latex [LATEX] Allergy Unknown UNKNOWN Verified 12/15/24 13:26 lisinopril Allergy Unknown Unknown Verified 12/15/24 13:26 oxycodone [Percocet] Allergy Unknown Stomach Verified 12/15/24 13:26 upset tramadol Allergy Unknown Stomach Verified 12/15/24 13:26 uspet Review of Systems 2 Review of Systems: Yes all other systems are reviewed and are negative Constitutional: Constitutional: Reports as per [facility] Past Medical History Attestation statement: The following information was validated with the patient. Source: old records reviewed Medical History Obesity (BMI 30-39.9) Neuropathy Acquired hypothyroidism Mixed hyperlipidemia Essential hypertension Atrial fibrillation Hypothyroidism Obesity Type 2 diabetes mellitus with morbid obesity Annual physical exam Vitamin D deficiency HLD (hyperlipidemia) T2DM (type 2 diabetes mellitus) Diabetes mellitus Hypertension Surgical History History of vitrectomy History of surgery History of colonoscopy History of appendectomy History of cholecystectomy S/P JOSIE (total abdominal hysterectomy) Family History Family History Father Diabetes Mother CHF (congestive heart failure) CVD (cardiovascular disease) Brother HIV (human immunodeficiency virus infection) Social History Social History Household Members: None Housing: Condominium Do you presently have visiting nurse or other home services: No Alcohol intake: current Patient Tobacco Use Status: Former Tobacco user Tobacco use type: Cigarette Years Smoked: 30 e-Cigarette/Vaping Use: Never Used Second Hand Smoke Exposure: No Advance Directives: Yes Advance Directives on File: Yes Advance Directives Date on File: 12/15/23 Do you have a plan to hurt others: No Plan service: No Current occupational status: retired Cognitive needs: No Hearing needs: No Vision needs: No Physical Exam 2 Vital Signs: Vital Signs: Last Vital Signs Temp 98.1 F 12/16/24 14:00 Pulse 61 12/16/24 14:00 Resp 16 12/16/24 14:00 BP 100/55 L 12/16/24 14:00 Pulse Ox 95 12/16/24 14:00 O2 Del Method Room Air 12/16/24 14:00 BMI result Body Mass Index 28.4 Const: General: cooperative and no acute distress O rientation/consciousness: patient oriented x3 Limitations: no limitations HEENT: Head: Yes normal to inspection and Yes atraumatic Ears: hearing grossly normal bilaterally General nose exam: Normal external nose present Face and sinus: Yes normal facial exam Throat: Yes posterior oropharynx normal and Yes uvula midline Eyes: General: appearance normal, both eyes and all related structures EOM: EOMs intact bilaterally Neck: Neck: Yes normal visual inspection and Yes no meningeal signs Resp: Effort & Inspection: normal respiratory effort and no respiratory distress Auscultation: clear to auscultation bilaterally and no wheezes Cardio: Rate: regular rate Heart sounds: S1 normal heart sound present and S2 normal heart sound present GI: Inspection: Yes normal to inspection Palpation (GI): Soft to palpation, nontender, no guarding and not rigid Back/Spine/Pelvis: Other: No midline cervical/thoracic/lumbar spinous tenderness/step-off or deformity Skin: Rashes: no rashes Wounds: no wounds Neuro: Other: speech mildly slurred > unclear if due to C-collar General: patient oriented x3, tone normal, moves all extremities, no meningeal signs, no focal motor deficits and CN's II-XI intact bilaterally C ranial nerves: Yes CN's II-XII intact bilaterally Cognition (Neuro): normal cognition Motor exam (neuro): strength not 5/5 throughout and no tremor noted Extrem: Other: Pelvis stable. Left knee with mild swelling. Tender to palpation. Neurovascularly intact distally. Left hip with mild tenderness. Pain elicited with external rotation Left elbow mildly tender. Neurovascularly intact distally Course Course Course Narrative: -1422-- H&H at patient's baseline. Magnesium low at 1.3 > 2 g IV repletion ordered. -Troponin 9.7 > will obtain [address] cervical spine wo IV con IMPRESSION: No evidence of fracture or malalignment of the cervical spine. CT head/brain wo IV con IMPRESSION: No acute intracranial abnormality. > patient's C-collar removed. Speech WNL, no slurred speech at this time > at baseline (C-collar was inhibiting speech upon arrival) continued low suspicion for CVA/TIA XR hip LT w PEL 1V IMPRESSION: 1. No definite acute fracture or dislocation. Stable exam. XR elbow LT min 3V IMPRESSION: 1. No definite acute fracture or dislocation left elbow allowing for suboptimal positioning. No joint effusion XR knee LT 2V IMPRESSION: 1. No acute bony abnormalities left knee. 2. Chondrocalcinosis, and mild to moderate arthrosis in all 3 compartments. 3. Patella wendi. 4. Allowing for obliquity, no significant joint effusion. > patient/family agreeable to PT/case management. -1748--magnesium improved to 1.6. Repeat troponin elevated to 17.5, patient asymptomatic > will obtain additional 3 hour repeat XR ribs LT min 3V w CXR1V Impression: No acute fractures are identified. >2055--additional repeat troponin without rise, mi unlikely. Physician observation initiated as patient needs more time to be evaluated by PT/case management. 2100--ED care transferred to SIMRAN Ferrer pending PT/case managment Reevaluation(s) Reevaluation #1: Physician observation continued. Patient seen and evaluated at the bedside this morning. Urinalysis returned with possible urinary tract infection, large leukocyte esterase, greater than 50 wbc's but there is also some contamination with squamous cells. Will start empiric antibiotics until urine culture is resulted. Patient started on a p.o. diet, lispro sliding scale, with fingersticks a.c. HS. Her home meds have been restarted. Code status discussed and confirmed DNR DNI, MOLST is in the chart. This has been ordered. Case management and physical therapy on board. Will continue to monitor. Time: 10:26 Reevaluation #2: Patient has been accepted to [facility]. She has not required medical admission at this time. Physician observation discontinued at this time. Patient agrees with plan and stable for discharge to rehab with oral antibiotics Time: 16:26 Medications Administered Generic Name Dose Route Start Last Admin Trade Name Lillian PRN Reason Stop Dose Admin Apixaban 5 mg 12/16/24 09:00 12/16/24 11:39 Apixaban 5 Mg Tablet PO 5 mg BID CONNER Administration Atorvastatin Calcium 80 mg 12/16/24 09:00 12/16/24 11:39 Atorvastatin Calcium 80 Mg Tablet PO 80 mg DAILY CONNER Administration Cefuroxime Axetil 250 mg 12/16/24 10:30 12/16/24 12:01 Cefuroxime Axetil 250 Mg Tablet PO 12/23/24 21:00 250 mg ONCE CONNER Administration Cyanocobalamin 500 mcg 12/16/24 09:00 12/16/24 11:40 Cyanocobalamin (Vitamin B-12) 500 Mcg Tablet PO 500 mcg DAILY CONNER Administration Insulin Human Lispro 0 unit 12/16/24 11:30 12/16/24 11:51 Insulin Lispro 100 Unit/Ml 3 Ml Vial SUBCUT 4 unit QIDACHS CONNER Administration Protocol Losartan Potassium 25 mg 12/16/24 09:00 12/16/24 11:39 Losartan Potassium 25 Mg Tablet PO 25 mg DAILY CONNER Administration Protocol Omeprazole 20 mg 12/16/24 09:00 12/16/24 11:38 Omeprazole 20 Mg Capsule.Dr PO 20 mg DAILY CONNER Administration Sertraline HCl 25 mg 12/16/24 09:00 12/16/24 11:40 Sertraline Hcl 25 Mg Tablet PO 25 mg DAILY CONNER Administration Vitamin D 25 mcg 12/16/24 09:00 12/16/24 11:38 Cholecalciferol (Vitamin D3) 25 Mcg Tablet PO 25 mcg DAILY CONNER Administration Discontinued Medications Generic Name Dose Route Start Last Admin Trade Name Ancelmoq PRN Reason Stop Dose Admin Acetaminophen 650 mg 12/15/24 18:27 12/15/24 18:39 Acetaminophen 325 Mg Tablet PO 12/15/24 18:28 650 mg ONCE ONE Administration Acetaminophen 975 mg 12/16/24 03:47 12/16/24 03:58 Acetaminophen 325 Mg Tablet PO 12/16/24 03:48 975 mg ONCE ONE Administration Magnesium Sulfate 2 gm in 50 mls @ 25 mls/hr 12/15/24 14:09 12/15/24 17:41 Magnesium Sulfate/H2o IV 12/15/24 16:08 Infused ONCE ONE Infusion Levothyroxine Sodium 112 mcg 12/16/24 09:00 12/16/24 11:44 Levothyroxine Sodium 112 Mcg Tablet PO 112 mcg DAILY CONNER Administration Lidocaine 1 patch 12/15/24 18:27 12/15/24 18:39 Lidocaine 4 % Patch Adh..Patch TRANSDERMA 12/15/24 18:28 1 patch ONCE ONE Administration Protocol Non-Formulary Medication 1.2 mg 12/16/24 09:00 12/16/24 14:28 Liraglutide SUBCUT Not Given DAILY CONNER Medical Decision Making Medical Decision Making MDM Narrative: 39-year-old female with a past medical history HTN, diabetes, HLD, hypothyroid, AFib on Eliquis, CVA with left-sided residual deficits, presenting to the ED via EMS s/p unwitnessed fall at home with + head strike. Reports left elbow, knee, and left leg pain at present. On exam vital signs stable, NAD, nontoxic appearing, physical exam as noted above, speech mildly slurred however unclear if secondary to C-collar > family believes this is the case. No other focal neuro deficits. LLE & L elbow with notable tenderness. Concern for ICH vs Fx's vs metabolic/infectious etiology. Low suspicion for acute CVA/TIA at this time Plan: Head/C-spine CT, EKG, labs, UA, CXR Please refer to course for remaining clinical decision making, interpretation of labs/imaging results, and discussions with consultants and/or family members. Differential Diagnosis Differential Diagnoses: The differential diagnosis associated with the presentation includes As above Admission/Observation Consideration of admission/observation: Escalation of care including admission/observation considered Lab Data [facility] Lab Attestation statement: I reviewed the patient's lab results. 12/15/24 13:45 12/15/24 13:45 Labs: Lab Results 12/15/24 12/15/24 12/15/24 Range/Units 13:26 13:45 17:21 WBC 11.8 H (4.8-10.8) X10*3/uL RBC 3.95 L (4.20-5.50) X10*6/uL Hgb 10.4 L (12.0-16.0) g/dl Hct 32.8 L (37.0-47.0) % MCV 83.0 (80.0-98.0) fL MCH 26.3 L (27.0-33.0) pg MCHC 31.7 (31.0-35.0) g/dl RDW 14.4 (11.0-16.0) % Plt Count 310 (160-400) X10*3/uL MPV 10.8 (9.4-12.3) fL Immature Gran % (Auto) 0.4 (0.0-0.4) % Neut % (Auto) 77.9 H (45-73) % Lymph % (Auto) 14.0 L (20-40) % [place] % (Auto) 7.0 (2-11) % Eos % (Auto) 0.3 (0-4) % Baso % (Auto) 0.4 (0-2) % Lymph # (Auto) 1.7 (1.2-4.9) X10*3/uL [place] # (Auto) 0.8 (0.1-1.2) X10*3/uL Eos # (Auto) 0.0 (0.0-0.4) X10*3/uL Baso # (Auto) 0.1 (0.0-0.2) X10*3/uL Abs Immat Gran (auto) 0.05 H (0.00-0.03) X10*3/uL Absolute Neuts (auto) 9.2 H (2.0-8.3) x10*3/uL Absolute Nucleated RBC 0.000 (0.0-0.012) X10*3/uL Nucleated RBC % (auto) 0.0 (0.0-0.2) /100WBC APTT 36.4 (26.0-36.8) SEC Sodium 140 (135-145) mmol/L Potassium 4.3 (3.3-5.1) mmol/L Chloride 106 (96-108) mmol/L Carbon Dioxide 22 (22-29) mmol/L Anion Gap 16 (12-20) BUN 14 (9-16) mg/dL Creatinine 0.77 (0.5-1.4) mg/dL Estim Creat Clear Calc 56.6 Estimated GFR > 60 POC Glucose 96 (60-115) mg/dL Random Glucose 90 (60-115) mg/dL Calcium 9.0 (8.4-10.2) mg/dL Magnesium 1.3 L* 1.6 (1.6-2.6) mg/dL Total Bilirubin 0.5 (0.0-1.0) mg/dL AST 26 (5-31) U/L ALT 8 (0-31) U/L Alkaline Phosphatase 45 (39-117) U/L Troponin I High Sens 9.7 D 17.5 H D (<3.5-17.0) ng/L Total Protein 7.1 (6.5-8.0) g/dL Albumin 3.8 (3.5-5.0) g/dL Urine Color Urine Appearance Urine pH (5.0-9.0) Ur Specific Jean (1.005-1.025) Urine Protein (Neg-Trace) mg/dL Urine Glucose (UA) (Negative) mg/dL Urine Ketones (Negative) mg/dL Urine Blood (Negative) Urine Nitrite (Negative) Ur Leukocyte Esterase (Negative) Urine RBC (0-2) /HPF Urine WBC (0-5) /HPF Ur Squamous Epith Cells (0-2) /HPF Urine Bacteria (None Seen) Hyaline Casts (0-2) /LPF 12/15/24 12/16/24 12/16/24 Range/Units 20:07 08:37 09:55 WBC (4.8-10.8) X10*3/uL RBC (4.20-5.50) X10*6/uL Hgb (12.0-16.0) g/dl Hct (37.0-47.0) % MCV (80.0-98.0) fL MCH (27.0-33.0) pg MCHC (31.0-35.0) g/dl RDW (11.0-16.0) % Plt Count (160-400) X10*3/uL MPV (9.4-12.3) fL Immature Gran % (Auto) (0.0-0.4) % Neut % (Auto) (45-73) % Lymph % (Auto) (20-40) % [place] % (Auto) (2-11) % Eos % (Auto) (0-4) % Baso % (Auto) (0-2) % Lymph # (Auto) (1.2-4.9) X10*3/uL [place] # (Auto) (0.1-1.2) X10*3/uL Eos # (Auto) (0.0-0.4) X10*3/uL Baso # (Auto) (0.0-0.2) X10*3/uL Abs Immat Gran (auto) (0.00-0.03) X10*3/uL Absolute Neuts (auto) (2.0-8.3) x10*3/uL Absolute Nucleated RBC (0.0-0.012) X10*3/uL Nucleated RBC % (auto) (0.0-0.2) /100WBC APTT (26.0-36.8) SEC Sodium (135-145) mmol/L Potassium (3.3-5.1) mmol/L Chloride (96-108) mmol/L Carbon Dioxide (22-29) mmol/L Anion Gap (12-20) BUN (9-16) mg/dL Creatinine (0.5-1.4) mg/dL Estim Creat Clear Calc Estimated GFR POC Glucose 106 (60-115) mg/dL Random Glucose (60-115) mg/dL Calcium (8.4-10.2) mg/dL Magnesium (1.6-2.6) mg/dL Total Bilirubin (0.0-1.0) mg/dL AST (5-31) U/L ALT (0-31) U/L Alkaline Phosphatase (39-117) U/L Troponin I High Sens 18.4 H (<3.5-17.0) ng/L Total Protein (6.5-8.0) g/dL Albumin (3.5-5.0) g/dL Urine Color Yellow Urine Appearance Cloudy Urine pH 5.5 (5.0-9.0) Ur Specific Jean 1.010 (1.005-1.025) Urine Protein Trace (Neg-Trace) mg/dL Urine Glucose (UA) Negative (Negative) mg/dL Urine Ketones Negative (Negative) mg/dL Urine Blood Negative (Negative) Urine Nitrite Negative (Negative) Ur Leukocyte Esterase Large (3+) H (Negative) Urine RBC 0-2 (0-2) /HPF Urine WBC >50 H (0-5) /HPF Ur Squamous Epith Cells 11-20 (0-2) /HPF Urine Bacteria None Seen (None Seen) Hyaline Casts 0-2 (0-2) /LPF 12/16/24 Range/Units 11:36 WBC (4.8-10.8) X10*3/uL RBC (4.20-5.50) X10*6/uL Hgb (12.0-16.0) g/dl Hct (37.0-47.0) % MCV (80.0-98.0) fL MCH (27.0-33.0) pg MCHC (31.0-35.0) g/dl RDW (11.0-16.0) % Plt Count (160-400) X10*3/uL MPV (9.4-12.3) fL Immature Gran % (Auto) (0.0-0.4) % Neut % (Auto) (45-73) % Lymph % (Auto) (20-40) % [place] % (Auto) (2-11) % Eos % (Auto) (0-4) % Baso % (Auto) (0-2) % Lymph # (Auto) (1.2-4.9) X10*3/uL [place] # (Auto) (0.1-1.2) X10*3/uL Eos # (Auto) (0.0-0.4) X10*3/uL Baso # (Auto) (0.0-0.2) X10*3/uL Abs Immat Gran (auto) (0.00-0.03) X10*3/uL Absolute Neuts (auto) (2.0-8.3) x10*3/uL Absolute Nucleated RBC (0.0-0.012) X10*3/uL Nucleated RBC % (auto) (0.0-0.2) /100WBC APTT (26.0-36.8) SEC Sodium (135-145) mmol/L Potassium (3.3-5.1) mmol/L Chloride (96-108) mmol/L Carbon Dioxide (22-29) mmol/L Anion Gap (12-20) BUN (9-16) mg/dL Creatinine (0.5-1.4) mg/dL Estim Creat Clear Calc Estimated GFR POC Glucose 208 H (60-115) mg/dL Random Glucose (60-115) mg/dL Calcium (8.4-10.2) mg/dL Magnesium (1.6-2.6) mg/dL Total Bilirubin (0.0-1.0) mg/dL AST (5-31) U/L ALT (0-31) U/L Alkaline Phosphatase (39-117) U/L Troponin I High Sens (<3.5-17.0) ng/L Total Protein (6.5-8.0) g/dL Albumin (3.5-5.0) g/dL Urine Color Urine Appearance Urine pH (5.0-9.0) Ur Specific Jean (1.005-1.025) Urine Protein (Neg-Trace) mg/dL Urine Glucose (UA) (Negative) mg/dL Urine Ketones (Negative) mg/dL Urine Blood (Negative) Urine Nitrite (Negative) Ur Leukocyte Esterase (Negative) Urine RBC (0-2) /HPF Urine WBC (0-5) /HPF Ur Squamous Epith Cells (0-2) /HPF Urine Bacteria (None Seen) Hyaline Casts (0-2) /LPF Independent Interpretation I performed an independent interpretation of an: EKG (My interpretation EKG sinus rhythm with PACs rate of 70. VA interval 158. Incomplete right bundle- branch block no longer present when compared to prior. No STEMI), Plain X-Ray and CT Scan Radiology Impression Discussion of test interpretation with radiology: I have reviewed the radiologist's reading. Independent Historian Clinical information obtained from an independent historian. History obtained from or confirmed by: EMS and Other (daughter) External Record Review External record reviewed: Inpatient record, Office record, Outpatient record, Prior outpatient labs, Prior outpatient radiology, Primary care record and Outside ED record Tests considered The following testing was considered but not selected: As above Prescription Management I considered prescription management with: Other Chronic Conditions Patient?s care impacted by: Diabetes, Hypertension and Other (CVA) Discharge Plan Discharge Clinical Impression: Fall, Leg pain, right, Pain in right elbow, Acute UTI Patient Disposition: [facility] Instructions: Fall Prevention for Older Adults (ED), Urinary Tract Infection in Older Adults (ED) Additional Instructions: You are being treated for UTI with antibiotics. Take the prescribed antibiotics as directed, complete the entire course and do not miss any doses If you develop new or worsening symptoms call 911 or come back to the ER for further evaluation. Prescriptions: New cefuroxime axetil 250 mg tablet 250 mg PO BID 7 Days Qty: 14 0RF No Action (DME) pen needle, diabetic [Novofine 32] 32 gauge x 1/4 needle See Rx Instructions .Route Qty: 100 0RF Rx Instructions: As directed up to three times per day (DME) Stair lift See Rx Instructions .Route .MEDSUPPLY Qty: 1 0RF Rx Instructions: As directed (DME) blood sugar diagnostic Strip See Rx Instructions .ROUTE .MEDSUPPLY Qty: 100 11RF Rx Instructions: FREESTYLE LITE TEST STRIPS TO CHECK THREE TIMES A DAY atorvastatin 80 mg tablet 80 mg PO DAILY Qty: 90 3RF levothyroxine 112 mcg tablet 112 mcg PO DAILY Qty: 90 1RF omeprazole 20 mg capsule,delayed release(DR/EC) 20 mg PO DAILY Qty: 90 0RF metformin 1,000 mg tablet 1,000 mg PO BIDWM Qty: 180 3RF Eliquis 5 mg tablet 5 mg PO BID Qty: 60 4RF ezetimibe 10 mg tablet 10 mg PO BEDTIME Qty: 30 1RF liraglutide 0.6 mg/0.1 mL (18 mg/3 mL) pen injector 1.2 mg subcut DAILY 30 Days Qty: 6 11RF cyanocobalamin (vitamin B-12) 250 mcg Tablet 500 mcg PO DAILY cholecalciferol (vitamin D3) [Vitamin D3] 25 mcg (1,000 unit) Tablet 25 mcg PO DAILY gabapentin 300 mg capsule 300 mg PO BEDTIME losartan 25 mg tablet 25 mg PO DAILY sertraline 25 mg tablet 25 mg PO DAILY (DME) blood-glucose meter [FreeStyle Lite Meter] Kit See Rx Instructions .ROUTE .MEDSUPPLY Qty: 1 0RF Rx Instructions: As directed Print Language: Portuguese
[2024-12-15] MEDS: Magnesium Sulfate/H2O 2 GM/50 ML PIGGYBACK IV (15:03)
--- OUTSIDE RECORDS SUMMARY | 2024-12-15 16:24 | XMS_ITS ---
Author Organization [facility] Address [address] [place] [id number] Care Team Providers Care Pediatric Occupational Therapist Name Role Phone Milana NATARAJAN, Allen Primary Care Provider Desire Arias [phone] Encounters Encounter Location Date Provider Diagnosis [address] [id number] 07/13/2024 Desire Ashford Plan Of Treatment No Information Progress Notes * Naty CERVANTES LDOB: [birth year] (79 yo F)Acc No.[id number]:07/13/2024 Progress Note Patient:?Naty CERVANTES Provider:?Desire Ashford DPM :1945???Age:78 Y???Sex:Female D ate:07/13/2024 Address:[address] [place], [place] [id number] Pcp:Allen Cortés MD Subjective: * Chief Complaints: [...] Ashford DPM Date:? Generated for Printi ng/Falesterg/eTransmitting on:?12/15/2024 04:24 PM EST
--- OUTSIDE RECORDS SUMMARY | 2024-12-15 16:24 | XMS_ITS | Clinical Summary ---
Author Organization [facility] Address [address] [place] [address] Care Team Providers Care Manufacturing Lead Name Role Phone Allen Cortés MD Primary Care Provider [phone] Allergies No known active allergies Medications Medication Sig Dispensed Refills Start Date End Date Status ezetimibe (ZeTIA) 10 MG tablet Take 1 tablet (10 mg total) by mouth daily. Active losartan (COZAAR) 25 MG tablet Take 1 tablet (25 mg total) by mouth daily. Active levothyroxine (SYNTHROID, LEVOTHROID) 112 MCG tablet Take 1 tablet (112 mcg total) by mouth daily on an empty stomach. Active diclofenac (VOLTAREN) 1 % gel Apply 2 g topically 4 (four) times a day. Use dosing card to measure dose. Apply to entire affect area. Active liraglutide (VICTOZA) 18 MG/3ML prefilled pen injection Inject 1.2 mg under the skin daily. Active metFORMIN (FORTAMET) 1000 MG (OSM) 24 hr tablet Take 1 tablet (1,000 mg total) by mouth every morning with breakfast. Active gabapentin (NEURONTIN) 300 MG capsule Take 1 capsule (300 mg total) by mouth 3 (three) times a day. Active atorvastatin (LIPITOR) 80 MG tabletIndications:[place] ischemic right MCA stroke (HCC) Take 1 tablet (80 mg total) by mouth daily. 30 tablet 06/30/2024 Active aspirin 81 MG chewable tabletIndications:Ac [place] ischemic right MCA stroke (HCC) Chew 1 tablet (81 mg total) daily. 90 tablet 06/30/2024 Active apixaban (ELIQUIS) 5 MG tabletIndications:At rial fibrillation, unspecified type (HCC) Take 1 tablet (5 mg total) by mouth 2 (two) times a day. 06/29/2024 Active Active Problems Problem Noted Date Diagnosed Date Acute ischemic right MCA stroke 06/26/2024 Social History Tobacco Use Types Packs/Day Years Used Date Smoking Tobacco: Never Assessed [facility] Utilities Answer Date Recorded In the past 12 months has th e electric, gas, oil, or water company threatened to shut off services in your home? No 06/27/2024 AUDIT-C Answer Date Recorded Q1: How often do you have a drink containing alc ohol? 2-4 times a month 06/26/2024 Q2: How many drinks containi ng alcohol do you have on a typical day when you are drinking? 1 or 2 06/26/2024 Q3: How often do you have si x or more drinks on one occasion? Never 06/26/2024 Overall Financial Resource Strain (CARDIA) Answe r Date Recorded How hard is it for you to pa y for the very basics like food, housing, medical care, and heating? Not very hard 06/27/2024 Hunger Vital Sign Answer Date Recorded Within the past 12 months, y ou worried that your food would run out before you got the money to buy more. Never true 06/27/20 24 Within the past 12 months, t he food you bought just didn't last and you didn't have money to get more. Never true 06/27/2024 PRAPARE - Transportation Answer Date Re corded In the past 12 months, has l ack of transportation kept you from medical appointments or from getting medications? No 03/2024 In the past 12 months, has l ack of transportation kept you from meetings, work, or from getting things needed for daily living? No 06/27/2024 Housing Stability Vital Sign Answer Bin e Recorded In the last 12 months, was t here a time when you were not able to pay the mortgage or rent on time? No 06/27/2024 In the last 12 months, how many places have you lived? 1 06/27/2024 In the last 12 months, was t here a time when you did not have a steady place to sleep or slept in a usp (including now)? No 06/27/2024 Sex and Gender Information Value Date Recorded Sex Assigned at Female 06/26/2024 7:55 PM EDT Gender Identity Female 06/26/2024 7:55 PM EDT Sexual Orientation Heterosexual (straight) 06/26 7:55 PM EDT Last Filed Vital Signs Vital Sign Reading Time Taken Comments Blood Pressure 162/74 06/29/2024 10:42 AM EDT Pulse 62 06/29/2024 8:00 AM EDT Temperature 36.8 ??C (98.2 ??F) 06/29/2024 8 :00 AM EDT Respiratory Rate 18 06/29/2024 8:00 AM EDT Oxygen Saturation 98% 06/29/2024 8:0 0 AM EDT Inhaled Oxygen Concentration - - Weight 85.5 kg (188 lb 7.9 oz) 06/27/2024 6:00 AM EDT Height 157.5 cm (5' 2 ) 06/28/2024 2:00 PM EDT per pt report Body Mass Index 34.48 06/27/2024 6:00 AM EDT Plan of Treatment Health Maintenance Due Date Last Done Comments Hepatitis C Virus Screening 1945 Foot Exam 1955 Ophthalmology Exam 1955 Microalbumin/Creatinine Rati o Urine 1963 DTaP/Tdap/Td Vaccines (1 - Tdap) 1964 Pneumococcal Vaccines 50+ (1 of 2 - PCV) 1964 Zoster (Shingles) Vaccine (1 of 2) 1995 DXA Bone Density (Females,Ag es 65 and older) 2010 RSV Vaccine 60 years and old er and Patients (1 - 1-dose 75+ series) 2020 Influenza Vaccine 06/23/2024 COVID-19 Vaccine (2 - 2023-2 5 season) 2024 09/12/2021 Hemoglobin A1C 12/28/2024 06/27/2024 Lipid Panel 06/27/2025 06/27/2024 Creatinine with GFR 06/29/2025 06/29/2024, 06/28/2024, 06/26/2024 Hepatitis B Vaccines Aged Out No long er eligible based on patient's age to complete this topic Procedures Procedure Name Priority Date/Time Associated Diagnosis Comments BASIC METABOLIC PANEL Routine 06/29/2024 10:27 AM EDT HEMOGLOBIN A1C WITH ESTIMATED AVERAGE GLUCOSE Routine 06/27/2024 8:21 AM EDT LIPID PANEL Routine 06/27/2024 8:21 AM EDT from Last 3 Months or Most Recently Relevant to Health Maintenance Results * (ABNORMAL) Basic Metabolic Panel (06/29/2024 10:27 AM EDT) Glucose 179(H) 65 - 99 mg/dL 06/29/2024 12:04 PM T [facility] Comment:Fasting: <100 mg/dL, Non-Fasting: <200 mg/dL (ADA 2004) Blood Urea Nitrogen (BUN) 12 8 - 21 mg/dL 06/29/2024 12:04 PM [facility] Creatinine 0.8 0.4 - 1.1 mg/dL 06/29/2024 12:04 PM [facility] eGFR 75 >59 06/29/2024 12:04 PM [facility] Comment:CKD-EPI (2020) in mL /min/1.73 sq meters. Sodium 140 136 - 145 mmol/L 06/29/2024 12:04 PM [facility] Potassium 4.3 3.4 - 5.3 mmol/L 06/29/2024 12:04 PM [facility] Chloride 104 98 - 107 mmol/L 06/29/2024 12:04 PM [facility] CO2 23 22 - 33 mmol/L 06/29/2024 12:04 PM [facility] Anion Gap 13 7 - 17 06/29/2024 12:04 PM [facility] Calcium 8.9 8.7 - 10.5 mg/dL 06/29/2024 12:04 PM [facility] BUN/Creatinine Ratio 15 10.0 - 25.0 Ratio 06/29/2024 12:04 PM [facility] Blood (Plasma/Serum) 06/29/2024 10:27 AM EDT 06/29/2024 11:25 AM EDT Byron Victoria MD LAB BLOOD ORDERABLES [facility] [address] [place] [address], [facility] [address] [place] [address] * (ABNORMAL) Hemoglobin A1c with Estimated Average Glucose (06/27/2024 8:21 AM EDT) Hemoglobin A1C 7.0(H) <5.7 % 06/27/2024 9:07 AM T [facility] Comment: A1c% ? Interpretation 5.7 - 6.0 ?Increase risk of diabetes 6.1 - 6.4 ?Higher risk of diabetes > or = 6.5 ?? Consistent with diabetes Diabetes Care, 33(Supp 1):S1-S61, 2010 Estimated Average Glucose 154 mg/dL 06/27/2024 9:07 AM [facility] Blood Blood specimen / Unknown 06/27/2024 8:21 AM EDT 06/27/2024 8:32 AM EDT Paul Ospina [place] [address], [place] [address] * (ABNORMAL) Lipid Panel (06/27/2024 8:21 AM EDT) Cholesterol, Total 141 <200 mg/dL 2023 9:18 AM T [facility] Triglycerides 169(H) <150 mg/dL 06/27/2024 9:18 AM [facility] Cholesterol, HDL 58 >39 mg/dL 06/27/20 9:18 AM [facility] Estimated LDL 49 <130 mg/dL 06/27/2024 9:18 AM [facility] Comment: NCEP Guidelines: ?< 100 mg/dL ??Optimal 100 - 129 mg/dL ??Near Optimal/Above Optimal 130 - 159 mg/dL ??Borderline High 160 - 189 mg/dL ??High ??>/= 190 mg/dL ??Very High Cholesterol/HDL Ratio 2.4 0.0 - 5.0 Ratio 06/27/2024 9:18 AM EDT [facility] Comment: Relative Risk ? Ratio - Male ? Ratio - Female ?0.5 ?3.4 ?3.3 ?1.0 ?5.0 ?4.4 ?2.0 ?9.6 ?7.1 ?3.0 ? 23.4 ? 11.0 Blood (Plasma/Serum) 06/27/2024 8:21 AM EDT 06/27/2024 8:32 AM EDT Paul Ospina MD LAB BLOOD ORDERABLE S Performing Organization Address [facility]/State/ZIP Co de Phone Number [address] [address], [address] [address] from Last 3 Months or Most Recently Relevant to Health Maintenance Advance Directives * DNR (Latest Code Status on File) Date Activated Date Inactivated Comments 06/27/2024 4:12 PM Question Answer Comments Decision thoroughly discussed with: Gail ent arrived with valid State [place] DNR Transfer form * Full Code Date Activated Date Inactivated Comments 06/26/2024 8:41 PM 06/27/2024 4:12 PM Care Teams Manufacturing Lead Relationship Specialty Start Date End Date Allen Cortés MD [address] [place] [address] PCP - General 06/26/24
--- OUTSIDE RECORDS SUMMARY | 2024-12-15 16:24 | XMS_ITS ---
[facility] Organization [facility] Address [address] [place] [address] Care Team Providers Care Digital Business Analyst Name Role Phone Milana NATARAJAN, Allen Primary Care Provider Desire Arias Unavailable [phone] Allergies No Known Allergies REASON FOR VISIT [...] 04/06/2024 Encounters Encounter Location Date Provider Diagnosis [facility] [address] [place] [address] 04/06/2024 Desire Ashford Type 2 diabetes mellitus [...] Pt defers any other forms of tx (13409) Keratoma Treatment Parring or Cutting o f Benign Hyperkeratotic Lesion(s) 34110 ( >4 Lesions) - The Benign hyperkeratotic [...] Naty CERVANTES LDOB: [birth year] (78 yo F)Acc No.[id number]:04/06/2024 Progress Note Patient:Naty Cook Provider:?Desire Ashford DPM :1945???Age:78 Y???Sex:Female D ate:04/06/2024 Address:[address] [place] [address], [facility] Pcp:Allen Cortés MD Subjective: * Chief Complaints: [...] bladder 1970cataract surgery * Hospitalization/Major Diagno stic Procedure:?[facility]- Stroke- rehab * Family History:?Mother: dece ased, [...] Procedures:?Keratoma Treatment:?Parring or Cutting of Benign Hyperkeratotic Lesion(s)?29634 ( >4 Lesions) - The Benign hyperkeratotic lesions, as described above were pared, and/or cut utilizing a sterile #15 blade, tissue nippers, and/or dremel.?Wart Treatment:?Procedure?Verrucae were debrided to pin-point bleeding margins with sterile 15 surgical blade, silver nitrate chemocautery applied, recomm. immune-boosting meds such as zinc, recomm. follow up with topical chemosurgical agents, Pt defers any other forms of tx (77787).?Nail Reduction:?Nail Reduction?Trimming of dystrophic nails performed to reduce/remove overall nail length and girth, by manual and electrical means with use of a nail nipper and/or dremel, to more viable healthy nail plate or bed tissue 6-10 (G0127).? * Procedure Codes:?61635 Wart Destruction, 1-14, Modifiers: XS G0127 TRIMMING DYSTROPHIC NAILS ANY #, Modifiers: XS 58320 TRIM SKIN LESIONS, OVER 4, Modifiers: XS [...] Ashford DPM Date:? Generated for Peri gautam/Diego/Adarsh on:?12/15/2024 04:24 PM EST History and Physical Notes * [...]
--- OUTSIDE RECORDS SUMMARY | 2024-12-15 16:24 | XMS_ITS ---
Author Organization [facility] Address [address] [place] [address] Care Team Providers Care Concert Or Lecture Hall Manager Name Role Phone Allen Cortés MD Primary Care Provider Desire Arias [phone] REASON FOR VISIT cx 07/13 appt Encounters Encounter Location Date Provider Diagnosis [address] [address] 07/11/2024 Desire Ashford Plan Of Treatment No Information Progress Notes * ORENNaty DRIVER LDOB: [birth year] (78 yo F)Acc No.[id number]:07/11/2024 Patient:?Naty Cervantes :1945???Age:78 Y???Sex:Female Address:[address] [place] [address], [address] * true * Date:? Generated for Printi ng/Diego/eTransmitting on:?12/15/2024 04:24 PM EST
--- OUTSIDE RECORDS SUMMARY | 2024-12-15 16:24 | XMS_ITS | Clinical Summary ---
Author Organization [facility] Address [address] [place] [address] Care Team Providers Care Email Marketer Name Role Phone Letty Weaver MD Primary Care Prov ider Social History Tobacco Use Types Packs/Day Years Used Date Smoking Tobacco: Never Assessed Sex and Gender Information Value Date Recorded Sex Assigned at Not on file Gender Identity Not on file Sexual Orientation Not on file Plan of Treatment Upcoming Encounters Date Type Department Care Team (Late st Contact Info) Description 01/17/2025 2:00 PM EST Office Visit Adult Medicine [address] [address] Letty Weaver MD [address] [place] [id number] Health Maintenance Due Date Last Done Comments DTaP,Tdap,and Td Vaccines (1 - Tdap) 1964 Zoster Vaccines (1 of 2) 1995 Pneumococcal Vaccine: 65+ Ye ars (1 of 1 - PCV) 2010 RSV Immunization Patients 60 + Years Old (1 - 1-dose 75+ series) 2020 Depression Screening 06/14/2024 Falls Risk Assessment 06/14/2024 Hepatitis C Screening 06/14/2024 Osteoporosis Screening (Bone Density Screening) 06/14/2024 Social Influencers of Health Screening 06/14/2024 COVID-19 Vaccine ( - 2023-2 5 season) 2024 Influenza Vaccine (#1) 2024 HIB Vaccines Aged Out No longer eligi ble based on patient's age to complete this topic HPV Vaccines Aged Out No longer eligi ble based on patient's age to complete this topic Hepatitis A Vaccines Aged Out No long er eligible based on patient's age to complete this topic Hepatitis B Vaccines Aged Out No long er eligible based on patient's age to complete this topic IPV Vaccines Aged Out No longer eligi ble based on patient's age to complete this topic MMR Vaccines Aged Out No longer eligi ble based on patient's age to complete this topic Meningococcal ACWY Vaccine Aged Out N o longer eligible based on patient's age to complete this topic RSV Immunization Patients Un matt 20 months Aged Out No longer eligible b ased on patient's age to complete this topic Varicella Vaccines Aged Out No longer eligible based on patient's age to complete this topic Care Teams Email Marketer Relationship Specialty Start Date End Date Letty Weaver MD [address] [place] [address] PCP - General 03/11/24
--- OUTSIDE RECORDS SUMMARY | 2024-12-15 16:25 | XMS_ITS | Patient Health Record ---
Author Organization [facility] Address [address] [place] [address] Care Team Providers Care Organic Extractions Technician Name Role Phone Milana NATARAJAN, Allen Primary Care Provider Pablo WrightyamilkaDesire Unavailable [phone] Allergies No Known Allergies Results Component Value [...] Problem Acquired hammer toe of right foot (934817138002 9105) Other hammer toe(s) (acquired), right foot (M20.41) Active confirmed Problem Acquired hammer toe of left foot (238372516617 9103) Other hammer toe(s) (acquired), left foot (M20.42) Active confirmed Problem 383450883 Hammer toe of le ft foot (M20.42) Active confirmed Problem 32801467 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.42) Active confirmed Problem 17835957 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.072) Active confirmed Vital Signs Height 5 ft 1 in in 04/06/2024 Weight 176 lbs 04/06/2024 BMI 33.25 kg/m2 04/06/2024 Encounters Encounter Location Date Provider Diagnosis [facility] [place] [address] [place] [address] 04/06/2024 Desire Ashford Type 2 diabetes mellitus with polyneuropathy E11.42 ; Other hammer toe(s) (acquired), right foot M20.41 ; Verruca pedis B07.0 ; Right foot pain M79.671 and Other hammer toe(s) (acquired), left foot M20.42 [facility] [address] [address] 07/11/2024 Desire Ashford Assessments Encounter Date Diagnosis [...] Treatment Pending Test Test Name Order Date [id number] NAIL, 6 OR MORE 01/23/2015 07324-Uvnrxyzs Plate 01/23/2015 65288-Nxawhxeg Plate Each Additional 01/2015 66732-VOAP SKIN LESIONS, OVER 4 01/24/20 15 Insurance Providers Payer Name Payer Address Payer Phone Subscriber Number Group Number Insured Name Patient Relationship to Insured Coverage Start Date Coverage End Date [employer] [address] [place] [address] [id number] Naty Cervantes Self - patient is the insured Medical (General) History Medical History History ICD Code Chicken pox Measles Mumps Hypertension Thyroid disorder Diabetic Arthritis Back,Hip,and Knee pain CAD (Cholesterol) Gall bladder problems Vascular phlebitis (clots) Stroke Cataracts Hearing loss Surgical History Surgery Date(Month/Year) cholecystectomy hysterectomy 1994 back surgery 1991 gall bladder 1970 cataract surgery Hospitalization History Reason Date(Month/Year) [facility]- Stroke- rehab
[2024-12-15 16:30] LABS: Glucose, Whole Blood 96 mg/dL (60-115)
[2024-12-15 16:37] VITALS: BP 149/47; PULSE 77; RESP 20; O2SAT 96
[2024-12-15 17:39] LABS: Magnesium 1.6 mg/dL (1.6-2.6)
[2024-12-15 17:46] LABS: Troponin-I High Sensitivity 17.5 ng/L (<3.5-17.0)
[2024-12-15] MEDS: Acetaminophen 325 MG TABLET 650 MG PO (18:39)
[2024-12-15] MEDS: Lidocaine 4 % Patch ADH..PATCH 1 PATCH TRANSDERMA (18:39)
[2024-12-15 19:49] VITALS: BP 105/46; PULSE 72; RESP 16; TEMP 37.2; O2SAT 93
[2024-12-15 20:35] VITALS: BP 105/46; PULSE 72; RESP 16; TEMP 37.2
[2024-12-15 20:39] LABS: Troponin-I High Sensitivity 18.4 ng/L (<3.5-17.0)
[2024-12-16] VITALS (7 sets, daily range): BP systolic 100–140; BP diastolic 54–63; PULSE 61–68; RESP 16–18; TEMP 36.4–36.8; O2SAT 95–97
[2024-12-16] MEDS: Acetaminophen 325 MG TABLET 975 MG PO (03:58)
--- NOTE | 2024-12-16 07:29 | PC.NURSE ---
Patient alert and oriented, assisted with care, safe on R/A, medicated per MAR. No distress observe
--- NOTE | 2024-12-16 08:31 | PHA.MEDREC ---
Pharmacy Consult ? Medication Reconciliation Pharmacy has completed the medication reconciliation. Spoke with patient who was a good historian. Patient was able to confirm dose of victoza, last injected the morning of 12/15. She also confirmed to be on losartan and metformin although claims are outdated. Patient also stressed multiple times that she is no longer on antibiotics. I went over each one individually with her and she did confirm to no longer be taking any of them.
[2024-12-16 08:54] LABS: Appearance Urine Cloudy; Color Urine Yellow; Glucose Urine UA Negative (Negative); Leukocyte Esterase Urine Large (3+) (Negative); Nitrite Urine Negative (Negative); PH 5.5 (5.0-9.0); UMIC TRIGGER UACC YES; Urine Blood Negative (Negative); Urine Ketones Negative (Negative); Urine Protein Trace mg/dL (Neg-Trace)
[2024-12-16 09:01] LABS: Bacteria Urine None Seen (None Seen); Hyaline Casts Urine 0-2 /LPF (0-2); RBC Urine 0-2 /HPF (0-2); UACC Culture Trigger YES; WBC Urine >50 /HPF (0-5)
[2024-12-16 09:59] LABS: Glucose, Whole Blood 106 mg/dL (60-115)
[2024-12-16] MEDS: Cholecalciferol (Vitamin D3) 25 MCG TABLET PO (11:38)
[2024-12-16] MEDS: Omeprazole 20 MG CAPSULE.DR PO (11:38)
[2024-12-16] MEDS: Atorvastatin Calcium 80 MG TABLET PO (11:39)
[2024-12-16] MEDS: Losartan Potassium 25 MG TABLET PO (11:39)
[2024-12-16] MEDS: Apixaban 5 MG TABLET PO (11:39)
[2024-12-16 11:40] LABS: Glucose, Whole Blood 208 mg/dL (60-115)
[2024-12-16] MEDS: Cyanocobalamin (Vitamin B-12) 500 MCG TABLET PO (11:40)
[2024-12-16] MEDS: Sertraline HCL 25 MG TABLET PO (11:40)
[2024-12-16] MEDS: Levothyroxine Sodium 112 MCG TABLET PO (11:44)
--- NOTE | 2024-12-16 11:46 | MHC.CM.PN ---
Addendum entered by Elizabeth Keen RN 12/16/24 13:22: No bed offers from preferred facilities. Family accepted bed @ [facility], who will submit for auth. Original Note: CM met with patient and daughter, Letty, at bedside. Patient lives at home, 15/06 support from family. Her daughters stay with her over the weekend and she stays with her son during the week. Ambulates w/ a cane, walker PRN. No services. PCP Trevor Rios MD HCP on file and verified. DP: PT rec AR. All 3 local AR's have declined, as patient does not meet criteria. Referrals to local STR's. Per daughter, preference to [facility] and [facility]. Awaiting bed offers. Will need auth. CM will continue to follow. RN updated.
[2024-12-16] MEDS: Insulin Lispro 100 UNIT/ML 3 ML VIAL SUBCUT (11:51)
[2024-12-16] MEDS: cefuroxime axetiL 250 MG TABLET PO (12:01)
[2024-12-16 17:02] LABS: Glucose, Whole Blood 126 mg/dL (60-115)
[2024-12-16] MEDS: metFORMIN HCl 1,000 MG TABLET 1000 MG PO (18:36)
== END 2024-12-16 19:05 | disposition skilled nursing facility (03) ==
PROVIDERS: Physician Assistant; Emergency Provider Emergency Medicine; PCP Internal Medicine
DX: M25.522 Pain in left elbow (principal); M79.662 Pain in left lower leg; M25.552 Pain in left hip; R07.9 Chest pain, unspecified; S09.90XA Unspecified injury of head, initial encounter; W18.30XA Fall on same level, unspecified, initial encounter; Y93.9 Activity, unspecified; Y92.9 Unspecified place or not applicable; Y99.9 Unspecified external cause status; I10 Essential (primary) hypertension; E11.9 Type 2 diabetes mellitus without complications; I48.91 Unspecified atrial fibrillation; Z79.01 Long term (current) use of anticoagulants; Z79.899 Other long term (current) drug therapy
CPT/HCPCS: 36415; 70450; 71101; 72125; 73080; 73502; 73560; 80053; 81001; 82947; 83735; 84484; 85025; 85730; 87086; 93005; 96365; 96366; 97161; 99285; J3475

== ENCOUNTER → 2024-12-15 13:24 | Outpatient (BNV) | payer MEDICARE, SELFPAY | PROVIDERS: Emergency Provider Emergency Medicine; PCP Internal Medicine; Visit Provider Internal Medicine Cardiovascular Disease | DX: I49.1 Atrial premature depolarization (principal); R41.82 Altered mental status, unspecified | CPT/HCPCS: 93010 ==

== ENCOUNTER → 2024-12-15 13:24 | Outpatient (BNV) | payer MEDICARE, SELFPAY | PROVIDERS: Emergency Provider Emergency Medicine; PCP Internal Medicine; Visit Provider Radiology Diagnostic Radiology | DX: W19.XXXA Unspecified fall, initial encounter (principal); M25.552 Pain in left hip; M51.360 Other intervertebral disc degeneration, lumbar region with discogenic back pain only; M25.522 Pain in left elbow; M11.262 Other chondrocalcinosis, left knee; M22.8X2 Other disorders of patella, left knee; M54.2 Cervicalgia | CPT/HCPCS: 70450; 71101; 72125; 73080; 73502; 73560 ==

== ENCOUNTER → 2024-12-28 14:29 | Outpatient (BNVA) | payer MEDICARE, SELFPAY | PROVIDERS: PCP Internal Medicine; Visit Provider Internal Medicine | DX: I48.0 Paroxysmal atrial fibrillation (principal); I10 Essential (primary) hypertension; E11.69 Type 2 diabetes mellitus with other specified complication; E66.01 Morbid (severe) obesity due to excess calories ==

== ENCOUNTER 2025-01-04 13:47 | Outpatient (AMB) | payer MEDICARE, SELFPAY ==
[2025-01-04 13:48] VITALS: BP 138/60; PULSE 69; O2SAT 98; BMI 29.5
--- NOTE | 2025-01-04 13:48 | MHC.OFFVIS ---
Vital Signs 01/04/25 13:48 Height 5 ft 1 in Weight 156 lb BMI 29.5 BP 138/60 Blood Pressure Location Rt brachial Position Sitting Pulse 69 Pulse Source Doppler Pulse Oximetry (%) 98 Oxygen Delivery Method Room Air Intake Visit Reasons: Obstructive sleep apnea Allergies amoxicillin [Augmentin] Allergy (Unknown, Verified 01/04/25 13:57) hives clavulanic acid [Augmentin] Allergy (Unknown, Verified 01/04/25 13:57) hives furosemide Allergy (Unknown, Verified 01/04/25 13:57) unknown latex [LATEX] Allergy (Unknown, Verified 01/04/25 13:57) UNKNOWN lisinopril Allergy (Unknown, Verified 01/04/25 13:57) Unknown oxycodone [Percocet] Allergy (Unknown, Verified 01/04/25 13:57) Stomach upset tramadol Allergy (Unknown, Verified 01/04/25 13:57) Stomach uspet HPI HPI Obstructive sleep apnea: Details: 79-year-old lady, former 40+ pack-year smoker with recent diagnosis of nocturnal hypoxemia on sleep study referred for pulmonary follow-up. Patient denies significant dyspnea on exertion. She had 6 minute walk test/supplemental oxygen evaluation showing normoxemia with exertion. She does have underlying AFib on Eliquis and history of 2 prior strokes. ON LICENSE OF [facility] Medical History Obesity (BMI 30-39.9) Neuropathy Acquired hypothyroidism Mixed hyperlipidemia Essential hypertension Atrial fibrillation Hypothyroidism Obesity Type 2 diabetes mellitus with morbid obesity Annual physical exam Vitamin D deficiency HLD (hyperlipidemia) T2DM (type 2 diabetes mellitus) Diabetes mellitus Hypertension Surgical History History of vitrectomy History of surgery History of colonoscopy History of appendectomy History of cholecystectomy S/P JOSIE (total abdominal hysterectomy) Family History Father Diabetes Mother CHF (congestive heart failure) CVD (cardiovascular disease) Brother HIV (human immunodeficiency virus infection) Social History (Updated 01/04/25 @ 13:54 by REYNA Mccormick) Household Members: None Housing: Condominium Do you presently have visiting nurse or other home services: No Alcohol intake: current Patient Tobacco Use Status: Former Tobacco user Tobacco use type: Cigarette Years Smoked: 30, started at 10, about 15 cig a day, e-Cigarette/Vaping Use: Currently Using Second Hand Smoke Exposure: No Advance Directives Date on File: 12/15/23 service: No Current occupational status: retired Cognitive needs: No Hearing needs: No Vision needs: No Review of Systems Const Denies daytime sleepiness, Denies excessive sweating, Denies fatigue, Denies fever(s), Denies lethargy, Denies malaise, Denies night sweats, Denies snoring and Denies weight loss Eyes Denies blurry vision and Denies itchy eyes ENT Denies nasal congestion, Denies post nasal drip, Denies sinus pain, Denies sinus pressure and Denies other ( Thrush) Card Denies chest pain, Denies pedal edema, Denies dyspnea, Denies orthopnea and Denies paroxysmal nocturnal dyspnea Resp Denies cough, Denies hemoptysis, Denies excessive phlegm production, Denies dyspnea, Denies snoring and Denies wheezing GI Denies abdominal pain and Denies heartburn Musc Denies myalgias, Denies arthralgias and Denies joint swelling Skin/Breast Denies rash Neuro Denies memory loss and Denies seizure-like activity Psych Denies abnormal sleep pattern, Denies anxiety and Denies memory loss Endo Denies excessive sweating, Denies fatigue and Denies heat intolerance Salvador/Lymph Denies easy bruising Aller/Immun Denies itchy eyes, Denies seasonal rhinorrhea and Denies wheezing Physical Exam Vital Signs: Last Vital Signs Pulse 69 01/04/25 13:48 BP 138/60 01/04/25 13:48 Pulse Ox 98 01/04/25 13:48 Oxygen Delivery Method Room Air 01/04/25 13:48 BMI result Body Mass Index 29.5 Const General: no acute distress and alert Nutritional Appearance: not obese Orientation/consciousness: Other orientation findings ( oriented) HEENT Head: Yes atraumatic Eyes General: appearance normal, both eyes and all related structures Sclerae: sclerae normal EOM: EOMs intact bilaterally Neck Neck: Yes supple Lymphatic: no lymphadenopathy noted Resp Effort & Inspection: normal respiratory effort and no use of accessory muscles Auscultation: clear to auscultation bilaterally Cardio Rate: regular rate Rhythm: regular rhythm Heart sounds: no gallops, no murmurs and no rubs Skin General skin exam: other ( warm) Extrem General: No clubbing, No cyanosis and No edema Office Procedures 6 Minute Walk Time:: 14:19 SPO2 % at rest: 98 Pulse at rest: 70 SPO2 % during excercise: 96 Pulse during excercise: 80 SPO2 % after excercise: 98 Pulse after excercise: 88 Distance in yards walked: 125 Emmanuel Score: 4 Performance Observations:: Patient walked unassisted on level ground using a walker. Patient was able to complete the 6 minute walk maintaining O2 saturation of 96% or greater and pulse rate of 78-80. Denies shortness of breath. Patient did not require supplemental oxygen. 42890 - 6 Minute Walk Assessment & Plan Assessment & Plan (1) Nocturnal hypoxemia: Code(s): G47.34 - Idiopathic sleep related nonobstructive alveolar hypoventilation Category: Medical Plan: Will start on nocturnal oxygen and obtain overnight oximetry on supplemental oxygen to evaluate for appropriate oxygen supplementation. (2) Pulmonary emphysema: Code(s): J43.9 - Emphysema, unspecified Category: Medical Plan: Likely underlying undiagnosed COPD/emphysema. Will obtain pulmonary function test. Orders: Orders AMB 6 minute walk Today G47.34 - Idiopathic sleep related nonobstructive alveolar hypoventilation PFT pulmonary function test Today J43.9 - Emphysema, unspecified Coding Level of Care Code New Pt Level 4 (87765) Diagnoses Nocturnal hypoxemia G47.34 Pulmonary emphysema J43.9 CPT Codes Coding ([id number])
[2025-01-04 14:38] VITALS: PULSE 70; O2SAT 98
--- OUTSIDE RECORDS SUMMARY | 2025-01-04 15:10 | XMS_ITS ---
Author Organization [facility] Address [address] [place] [address] Care Team Providers Care Director Acute Name Role Phone Milana NATARAJAN, Allen Primary Care Provider Desire Arias [phone] Encounters Encounter Location Date Provider Diagnosis [address] [address] 07/13/2024 Desire Ashford Plan Of Treatment No Information Progress Notes * Naty CERVANTES LDOB: [birth year] (79 yo F)Acc No.[id number]:07/13/2024 Progress Note Patient:?Naty CERVANTES Provider:?Desire Ashford DPM :1945???Age:78 Y???Sex:Female D ate:07/13/2024 Address:[address] [place], [place] [address] Pcp:Allen Cortés MD Subjective: * Chief Complaints: * ??? * Medical History:? Objective: * Vitals:? Assessment: Plan: * Treatment: * Images: * The named appointment provid er may or may not be the originator of this progress note, and it is not deemed complete until electronically signed by the appointment provider. Sign off status: Pending * Provider:?Desire Ashford DPM Date:? Generated for Printi dain/Falesterg/eTransmitting on:?01/04/2025 03:10 PM EST
--- OUTSIDE RECORDS SUMMARY | 2025-01-04 15:10 | XMS_ITS | Clinical Summary ---
Author Organization [facility] Address [address] [place] [address] Care Team Providers Care Preform Machine Operator Name Role Phone Allen Cortés MD Primary Care Provider [phone] Allergies No known active allergies Medications Medication [...] day. Active atorvastatin (LIPITOR) 80 MG tabletIndications:Ac [place] ischemic right MCA stroke (HCC) Take 1 tablet (80 mg total) by mouth daily. 30 tablet 06/30/2024 Active aspirin 81 MG chewable tabletIndications:Ac [place] ischemic right MCA stroke (HCC) Chew 1 [...] Years Used Date Smoking Tobacco: Never Assessed [facility] Utilities Answer Date Recorded In the past [...] place to sleep or slept in a detention (including now)? No 06/27/2024 Sex and Gender [...] - 99 mg/dL 06/29/2024 12:04 PM T [facility] Comment:Fasting: <100 mg/dL, Non-Fasting: <200 mg/dL (ADA 2004) Blood Urea Nitrogen (BUN) 12 8 - 21 mg/dL 06/29/2024 12:04 PM [facility] Creatinine 0.8 0.4 - 1.1 mg/dL 06/29/2024 12:04 PM [facility] eGFR 75 >59 06/29/2024 12:04 PM [facility] Comment:CKD-EPI (2020) in mL /min/1.73 sq meters. Sodium 140 136 - 145 mmol/L 06/29/2024 12:04 PM [facility] Potassium 4.3 3.4 - 5.3 mmol/L 06/29/2024 12:04 PM [facility] Chloride 104 98 - 107 mmol/L 06/29/2024 12:04 PM [facility] CO2 23 22 - 33 mmol/L 06/29/2024 12:04 PM [facility] Anion Gap 13 7 - 17 06/29/2024 12:04 PM [facility] Calcium 8.9 8.7 - 10.5 mg/dL 06/29/2024 12:04 PM [facility] BUN/Creatinine Ratio 15 10.0 - 25.0 Ratio 06/29/2024 12:04 PM [facility] Blood (Plasma/Serum) 06/29/2024 10:27 AM EDT 06/29/2024 11:25 AM EDT Byron Victoria MD LAB BLOOD ORDERABLES [facility] [address] [place] [address], [facility] [address] [place] [address] * (ABNORMAL) Hemoglobin A1c with Estimated Average Glucose (06/27/2024 8:21 AM EDT) Hemoglobin A1C 7.0(H) <5.7 % 06/27/2024 9:07 AM T [facility] Comment: A1c% ? Interpretation 5.7 - 6.0 ?Increase risk of diabetes 6.1 - 6.4 ?Higher risk of diabetes > or = 6.5 ?? Consistent with diabetes Diabetes Care, 33(Supp 1):S1-S61, 2010 Estimated Average Glucose 154 mg/dL 06/27/2024 9:07 AM [facility] Blood Blood specimen / Unknown 06/27/2024 8:21 AM EDT 06/27/2024 8:32 AM EDT Paul Ospina MD [place] [address], [place] [address] * (ABNORMAL) Lipid Panel (06/27/2024 8:21 AM EDT) Cholesterol, Total 141 <200 mg/dL 2023 9:18 AM T [facility] Triglycerides 169(H) <150 mg/dL 06/27/2024 9:18 AM [facility] Cholesterol, HDL 58 >39 mg/dL 06/27/20 9:18 AM [facility] Estimated LDL 49 <130 mg/dL 06/27/2024 9:18 AM [facility] Comment: NCEP Guidelines: ?< 100 mg/dL ??Optimal 100 - 129 mg/dL ??Near Optimal/Above Optimal 130 - 159 mg/dL ??Borderline High 160 - 189 mg/dL ??High ??>/= 190 mg/dL ??Very High Cholesterol/HDL Ratio 2.4 0.0 - 5.0 Ratio 06/27/2024 9:18 AM EDT [facility] Comment: Relative Risk ? Ratio - Male ? Ratio - Female ?0.5 ?3.4 ?3.3 ?1.0 ?5.0 ?4.4 ?2.0 ?9.6 ?7.1 ?3.0 ? 23.4 ? 11.0 Blood (Plasma/Serum) 06/27/2024 8:21 AM EDT 06/27/2024 8:32 AM EDT Paul Ospina MD LAB BLOOD ORDERABLE S Performing Organization Address [facility]/State/ZIP Co de Phone Number [address] [address], [address] [address] from Last 3 Months or Most Recently Relevant to Health Maintenance Advance Directives * DNR (Latest Code Status on File) Date Activated Date Inactivated Comments 06/27/2024 4:12 PM Question Answer Comments Decision thoroughly discussed with: Gail ent arrived with valid State [place] DNR Transfer form * Full Code Date Activated Date Inactivated Comments 06/26/2024 8:41 PM 06/27/2024 4:12 PM Care Teams Preform Machine Operator Relationship Specialty Start Date End Date Allen Cortés MD [address] [place] [address] PCP - General 06/26/24
--- OUTSIDE RECORDS SUMMARY | 2025-01-04 15:10 | XMS_ITS | Patient Health Record ---
Author Organization [facility] Address [address] [place] [address] Care Team Providers Care Clinical Lab Specialist Name Role Phone Milana NATARAJAN, Allen Primary Care Provider Desire Arias Unavailable [phone] Allergies No Known Allergies Reason For Referral No Information Medications Medication [...] Problem Acquired hammer toe of right foot (301625521182 9105) Other hammer toe(s) (acquired), right foot (M20.41) Active confirmed Problem Acquired hammer toe of left foot (568881045978 9103) Other hammer toe(s) (acquired), left foot (M20.42) Active confirmed Problem 704081000 Hammer toe of le ft foot (M20.42) Active confirmed Problem 56893135 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.42) Active confirmed Problem 24941005 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.072) Active confirmed Vital Signs Height 5 ft 1 in in 04/06/2024 Weight 176 lbs 04/06/2024 BMI 33.25 kg/m2 04/06/2024 Encounters Encounter Location Date Provider Diagnosis [facility] [address] [place] [address] 04/06/2024 Desire Ashford Type 2 diabetes mellitus with polyneuropathy E11.42 ; Other hammer toe(s) (acquired), right foot M20.41 ; Verruca pedis B07.0 ; Right foot pain M79.671 and Other hammer toe(s) (acquired), left foot M20.42 [facility] [address] 07/11/2024 Desire Ashford Assessments Encounter Date Diagnosis [...] Treatment Pending Test Test Name Order Date [id number]-KSOWSSP NAIL, 6 OR MORE 01/23/2015 15325-Kxkpqugm Plate 01/23/2015 37273-Qzxeqkcj Plate Each Additional 01/2015 92338-KKBU SKIN LESIONS, OVER 4 01/24/20 15 Insurance Providers Payer Name Payer Address Payer Phone Subscriber Number Group Number Insured Name Patient Relationship to Insured Coverage Start Date Coverage End Date [employer] [place] Medicare Advantage [address] [facility] [address] [id number] Naty Cervantes Self - patient is the insured Medical (General) History Medical History History ICD Code Chicken pox Measles Mumps Hypertension Thyroid disorder Diabetic Arthritis Back,Hip,and Knee pain CAD (Cholesterol) Gall bladder problems Vascular phlebitis (clots) Stroke Cataracts Hearing loss Surgical History Surgery Date(Month/Year) cholecystectomy hysterectomy 1994 back surgery 1991 gall bladder 1970 cataract surgery Hospitalization History Reason Date(Month/Year) [facility] [place]- [place]- rehab
--- OUTSIDE RECORDS SUMMARY | 2025-01-04 15:10 | XMS_ITS | Clinical Summary ---
Author Organization [facility] Address [address] [place] [address] Care Team Providers Care Vehicle Cost Engineer Name Role Phone Letty Weaver MD Primary Care Prov ider Social History Tobacco Use Types Packs/Day Years Used Date Smoking Tobacco: Never Assessed Comments Unknown Sex and Gender Information Value Date Recorded Sex Assigned at Not on file Legal Sex Female 3:06 PM EST Gender Identity Not on file Sexual Orientation Not on file Plan of Treatment Upcoming Encounters Date Type Department Care Team (Late st Contact Info) Description 01/17/2025 2:00 PM EST Office Visit Adult Medicine [address] [address] Letty Weaver MD [address] [place] [address] Health Maintenance Due Date Last Done Comments DTaP,Tdap,and Td Vaccines (1 - Tdap) 1964 Zoster Vaccines (1 of 2) 1995 Pneumococcal Vaccine: 50+ Ye ars (1 of 1 - PCV) [...] age to complete this topic Care Teams Vehicle Cost Engineer Relationship Specialty Start Date End Date Letty Weaver MD [address] [place] [address] PCP - General 03/11/24
--- OUTSIDE RECORDS SUMMARY | 2025-01-04 15:10 | XMS_ITS ---
Author [facility] Address [address] [place] [address] Care Team Providers Care Brim Blocker Name Role Phone Milana NATARAJAN, Allen Primary Care Provider Desire Arias Unavailable [phone] Allergies No Known Allergies REASON FOR VISIT [...] 04/06/2024 Encounters Encounter Location Date Provider Diagnosis [facility] [place] [address] [place] [address] 04/06/2024 Desire Ashford Type 2 diabetes mellitus [...] Pt defers any other forms of tx (17932) Keratoma Treatment Parring or Cutting o f Benign Hyperkeratotic Lesion(s) 92476 ( >4 Lesions) - The Benign hyperkeratotic [...] Naty CERVANTES LDOB: [birth year] (78 yo F)Acc No.[id number]:04/06/2024 Progress Note Patient:Naty Cook Provider:?Desire Ashford DPM :1945???Age:78 Y???Sex:Female D ate:04/06/2024 Address:[address] [place] [address], [facility] Pcp:Allen Cortés MD Subjective: * Chief Complaints: [...] bladder 1970cataract surgery * Hospitalization/Major Diagno stic Procedure:?[facility] [place]- Stroke- rehab * Family History:?Mother: dece ased, [...] Procedures:?Keratoma Treatment:?Parring or Cutting of Benign Hyperkeratotic Lesion(s)?14528 ( >4 Lesions) - The Benign hyperkeratotic lesions, as described above were pared, and/or cut utilizing a sterile #15 blade, tissue nippers, and/or dremel.?Wart Treatment:?Procedure?Verrucae were debrided to pin-point bleeding margins with sterile 15 surgical blade, silver nitrate chemocautery applied, recomm. immune-boosting meds such as zinc, recomm. follow up with topical chemosurgical agents, Pt defers any other forms of tx (43473).?Nail Reduction:?Nail Reduction?Trimming of dystrophic nails performed to reduce/remove overall nail length and girth, by manual and electrical means with use of a nail nipper and/or dremel, to more viable healthy nail plate or bed tissue 6-10 (G0127).? * Procedure Codes:?92259 Wart Destruction, 1-14, Modifiers: XS G0127 TRIMMING DYSTROPHIC NAILS ANY #, Modifiers: XS 71968 TRIM SKIN LESIONS, OVER 4, Modifiers: XS [...] Ashford DPM Date:? Generated for Peri gautam/Diego/Adarsh on:?01/04/2025 03:09 PM EST History and Physical Notes * [...]
--- OUTSIDE RECORDS SUMMARY | 2025-01-04 15:10 | XMS_ITS ---
Author Organization [facility] Address [address] [place] [address] Care Team Providers Care Process Control Technician Name Role Phone Allen Cortés MD Primary Care Provider Desire Arias [phone] REASON FOR VISIT cx 07/13 appt Encounters Encounter Location Date Provider Diagnosis [address] [address] 07/11/2024 Desire Ashford Plan Of Treatment No Information Progress Notes * ORENNaty DRIVER LDOB: [birth year] (78 yo F)Acc No.[id number]:07/11/2024 Patient:?Naty Cervantes :1945???Age:78 Y???Sex:Female Address:[address] [place] [address], [address] * true * Date:? Generated for Printi dain/Diego/eTransmitting on:?01/04/2025 03:10 PM EST
== END 2025-01-04 15:17 | disposition home or self-care (01) ==
PROVIDERS: PCP Internal Medicine; Visit Provider Internal Medicine Pulmonary Disease
DX: G47.34 Idiopathic sleep related nonobstructive alveolar hypoventilation (principal); J43.9 Emphysema, unspecified
CPT/HCPCS: 94618; 99204

== ENCOUNTER → 2025-01-04 13:47 | Outpatient (BNVA) | payer MEDICARE, SELFPAY | PROVIDERS: PCP Internal Medicine; Visit Provider Internal Medicine Pulmonary Disease | DX: G47.34 Idiopathic sleep related nonobstructive alveolar hypoventilation (principal); J43.9 Emphysema, unspecified | CPT/HCPCS: 94618; 99202 ==

== ENCOUNTER 2025-01-09 14:55 | Outpatient (AMB) | payer MEDICARE, SELFPAY ==
--- OUTSIDE RECORDS SUMMARY | 2025-01-09 14:58 | XMS_ITS | Patient Health Record ---
Author Organization [facility] Address [address] [place] [address] Care Team Providers Care Commercial Director Name Role Phone Milana NATARAJAN, Allen Primary Care Provider Desire Arias Unavailable [phone] Allergies No Known Allergies Reason For Referral [...] Problem Acquired hammer toe of right foot (183364464161 9105) Other hammer toe(s) (acquired), right foot (M20.41) Active confirmed Problem Acquired hammer toe of left foot (290916151337 9103) Other hammer toe(s) (acquired), left foot (M20.42) Active confirmed Problem 464731397 Hammer toe of le ft foot (M20.42) Active confirmed Problem 63355068 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.42) Active confirmed Problem 16321650 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.072) Active confirmed Vital Signs Height 5 ft 1 in in 04/06/2024 Weight 176 lbs 04/06/2024 BMI 33.25 kg/m2 04/06/2024 Encounters Encounter Location Date Provider Diagnosis [facility] [place] [address] [place] [address] 04/06/2024 Desire Ashford Type 2 diabetes mellitus with polyneuropathy E11.42 ; Other hammer toe(s) (acquired), right foot M20.41 ; Verruca pedis B07.0 ; Right foot pain M79.671 and Other hammer toe(s) (acquired), left foot M20.42 [facility] [address] 07/11/2024 Desire Ashford Assessments Encounter Date Diagnosis [...] Treatment Pending Test Test Name Order Date [id number] NAIL, 6 OR MORE 01/23/2015 93081-Wmtwrhio Plate 01/23/2015 26220-Qjjifich Plate Each Additional 01/2015 73664-FNJA SKIN LESIONS, OVER 4 01/24/20 15 Insurance Providers Payer Name Payer Address Payer Phone Subscriber Number Group Number Insured Name Patient Relationship to Insured Coverage Start Date Coverage End Date [employer] [place] Medicare Advantage [address] [facility] [id number] Naty Cervantes Self - patient is the insured Medical (General) History Medical History History ICD Code Chicken pox Measles Mumps Hypertension Thyroid disorder Diabetic Arthritis Back,Hip,and Knee pain CAD (Cholesterol) Gall bladder problems Vascular phlebitis (clots) Stroke Cataracts Hearing loss Surgical History Surgery Date(Month/Year) cholecystectomy hysterectomy 1994 back surgery 1991 gall bladder 1970 cataract surgery Hospitalization History Reason Date(Month/Year) [facility] [place]
--- OUTSIDE RECORDS SUMMARY | 2025-01-09 14:58 | XMS_ITS | Clinical Summary ---
Author Organization [facility] Address [address] [place] [address] Care Team Providers Care Candy Counter Clerk Name Role Phone Allen Cortés MD Primary Care Provider [phone] Allergies No known active allergies Medications Medication [...] day. Active atorvastatin (LIPITOR) 80 MG tabletIndications:Ac [place] ischemic right MCA stroke (HCC) Take 1 tablet (80 mg total) by mouth daily. 30 tablet 06/30/2024 Active aspirin 81 MG chewable tabletIndications:Ac [place] ischemic right MCA stroke (HCC) Chew 1 [...] Years Used Date Smoking Tobacco: Never Assessed [facility] Utilities Answer Date Recorded In the past [...] place to sleep or slept in a long-term (including now)? No 06/27/2024 Sex and Gender [...] MD LAB BLOOD ORDERABLES [facility] [address] [place] [address], [facility] [address] [place] [address] * (ABNORMAL) Hemoglobin A1c with Estimated Average [...] Paul Ospina MD [place] [address], [place] [address] * (ABNORMAL) Lipid Panel (06/27/2024 8:21 AM [...] LAB BLOOD ORDERABLE S Performing Organization Address [facility]/State/ZIP Co de Phone Number [address] [address], [address] [address] from Last 3 Months or Most Recently Relevant to Health Maintenance Advance Directives * DNR (Latest Code Status on File) Date Activated Date Inactivated Comments 06/27/2024 4:12 PM Question Answer Comments Decision thoroughly discussed with: Gail ent arrived with valid [place] DNR Transfer form * Full Code Date Activated Date Inactivated Comments 06/26/2024 8:41 PM 06/27/2024 4:12 PM Care Teams Candy Counter Clerk Relationship Specialty Start Date End Date Allen Cortés MD [address] [place] [address] PCP - General 06/26/24
--- OUTSIDE RECORDS SUMMARY | 2025-01-09 14:58 | XMS_ITS ---
Author Organization [facility] Address [address] [place] [address] Care Team Providers Care Steam Distribution Supervisor Name Role Phone Allen Cortés MD Primary Care Provider Desire Arias [phone] REASON FOR VISIT cx 07/13 appt Encounters Encounter Location Date Provider Diagnosis [address] [address] 07/11/2024 Desire Ashford Plan Of Treatment No Information Progress Notes * ORENNaty DRIVER LDOB: [birth year] (78 yo F)Acc No.[id number]:07/11/2024 Patient:?Naty Cervantes :1945???Age:78 Y???Sex:Female Address:[address] [place] [address], [address] * true * Date:? Generated for Printi dain/Diego/eTransmitting on:?01/09/2025 02:58 PM EST
--- OUTSIDE RECORDS SUMMARY | 2025-01-09 14:58 | XMS_ITS ---
Author Organization [facility] Address [address] [place] [address] Care Team Providers Care Ethylene Oxide Panelboard Operator Name Role Phone Milana NATARAJAN, Allen Primary Care Provider Desire Arias [phone] Encounters Encounter Location Date Provider Diagnosis [address] [address] 07/13/2024 Desire Ashford Plan Of Treatment No Information Progress Notes * Naty CERVANTES LDOB: [birth year] (79 yo F)Acc No.[id number]:07/13/2024 Progress Note Patient:?Naty CERVANTES Provider:?Desire Ashford DPM :1945???Age:78 Y???Sex:Female D ate:07/13/2024 Address:[address] [place], [place] [address] Pcp:Allen Cortés MD Subjective: * Chief Complaints: [...] Ashford DPM Date:? Generated for Printi dain/Falesterg/eTransmitting on:?01/09/2025 02:58 PM EST
--- OUTSIDE RECORDS SUMMARY | 2025-01-09 14:58 | XMS_ITS ---
[facility] Organization [facility] Address [address] [place] [address] Care Team Providers Care Fulfillment Specialist Name Role Phone Milana NATARAJAN, Allen Primary Care Provider Desire Arias Unavailable [phone] Allergies No Known Allergies REASON FOR VISIT [...] 04/06/2024 Encounters Encounter Location Date Provider Diagnosis [facility] [place] [address] [place] [address] 04/06/2024 Desire Ashford Type 2 diabetes mellitus [...] Pt defers any other forms of tx (96356) Keratoma Treatment Parring or Cutting o f Benign Hyperkeratotic Lesion(s) 46681 ( >4 Lesions) - The Benign hyperkeratotic [...] Naty CERVANTES LDOB: [birth year] (78 yo F)Acc No.[id number]:04/06/2024 Progress Note Patient:Naty Cook Provider:?Desire Ashford DPM :1945???Age:78 Y???Sex:Female D ate:04/06/2024 Address:[address] [place] [address], [id number] Pcp:Allen Cortés MD Subjective: * Chief Complaints: [...] bladder 1970cataract surgery * Hospitalization/Major Diagno stic Procedure:?[facility] [place]- Stroke- rehab * Family History:?Mother: dece [...] Procedures:?Keratoma Treatment:?Parring or Cutting of Benign Hyperkeratotic Lesion(s)?93602 ( >4 Lesions) - The Benign hyperkeratotic lesions, as described above were pared, and/or cut utilizing a sterile #15 blade, tissue nippers, and/or dremel.?Wart Treatment:?Procedure?Verrucae were debrided to pin-point bleeding margins with sterile 15 surgical blade, silver nitrate chemocautery applied, recomm. immune-boosting meds such as zinc, recomm. follow up with topical chemosurgical agents, Pt defers any other forms of tx (38797).?Nail Reduction:?Nail Reduction?Trimming of dystrophic nails performed to reduce/remove overall nail length and girth, by manual and electrical means with use of a nail nipper and/or dremel, to more viable healthy nail plate or bed tissue 6-10 (G0127).? * Procedure Codes:?82814 Wart Destruction, 1-14, Modifiers: XS G0127 TRIMMING DYSTROPHIC NAILS ANY #, Modifiers: XS 12054 TRIM SKIN LESIONS, OVER 4, Modifiers: XS [...] Ashford DPM Date:? Generated for Peri gautam/Diego/Adarsh on:?01/09/2025 02:57 PM EST History and Physical Notes * [...]
--- OUTSIDE RECORDS SUMMARY | 2025-01-09 14:58 | XMS_ITS | Clinical Summary ---
Author Organization [facility] Address [address] [place] [address] Care Team Providers Care Correctional Therapy Teacher Name Role Phone Letty Weaver MD Primary [...] 2:00 PM EST Office Visit Adult Medicine [address] [address] Letty Weaver MD [address] [place] [address] Health Maintenance Due Date Last Done Comments DTaP,Tdap,and Td Vaccines (1 - Tdap) 1964 Pneumococcal Vaccine: 50+ Ye ars (1 of 1 - PCV) 1995 Zoster Vaccines (1 of 2) 1995 RSV Immunization Patients 60 + Years Old [...] patient's age to complete this topic Meningococcal B Vacine Aged Out No lo nger eligible based on patient's age to complete this topic RSV Immunization Patients Un matt 20 months Aged Out No longer eligible b ased on patient's age to complete this topic Varicella Vaccines Aged Out No longer eligible based on patient's age to complete this topic Care Teams Correctional Therapy Teacher Relationship Specialty Start Date End Date Letty Weaver MD [address] [place] [address] PCP - General 03/11/24
--- NOTE | 2025-01-09 15:01 | A.OFFPC_ITS ---
Vital Signs 01/09/25 15:03 Height 5 ft 1 in Weight 154 lb 4 oz BMI 29.1 BP 110/62 Blood Pressure Location Rt brachial Position Sitting Pulse 65 Pulse Source Pulse Oximeter Temp 97.5 F Temp Source Temporal Artery Scan Pulse Oximetry (%) 98 Oxygen Delivery Method Room Air Intake Visit Reasons: Wound on the Butt Intake Note: Patient is here to follow up on wound on the left butt side. Websphere Message Broker Developer Required: No Nurseryman Assistant: Present Accompanied by: Grand Child Allergies amoxicillin [Augmentin] Allergy (Unknown, Verified 01/09/25 15:12) hives clavulanic acid [Augmentin] Allergy (Unknown, Verified 01/09/25 15:12) hives furosemide Allergy (Unknown, Verified 01/09/25 15:12) unknown latex [LATEX] Allergy (Unknown, Verified 01/09/25 15:12) UNKNOWN lisinopril Allergy (Unknown, Verified 01/09/25 15:12) Unknown oxycodone [Percocet] Allergy (Unknown, Verified 01/09/25 15:12) Stomach upset tramadol Allergy (Unknown, Verified 01/09/25 15:12) Stomach uspet Medication List - Last Reconciled 01/09/25 by CARSON Ventura apixaban (Eliquis) 5 mg PO BID atorvastatin 80 mg PO DAILY blood sugar diagnostic FREESTYLE LITE TEST STRIPS TO CHECK THREE TIMES A DAY blood-glucose meter (FreeStyle Lite Meter kit) As directed cholecalciferol (vitamin D3) (Vitamin D3) 25 mcg PO DAILY cyanocobalamin (vitamin B-12) 500 mcg PO DAILY ezetimibe 10 mg PO BEDTIME gabapentin 300 mg PO BEDTIME levothyroxine 112 mcg PO DAILY liraglutide 1.2 mg (0.2 mL) subcut DAILY 30 days losartan 12.5 mg PO DAILY metformin 1,000 mg PO BIDWM omeprazole 20 mg PO DAILY pen needle, diabetic (Novofine 32) As directed up to three times per day sertraline 25 mg PO DAILY [Stair lift As directed] Tobacco use date assessed: 01/09/25 Fall risk assessment: 1 Fall in past year (12/15/24) Last assessed Fall Risk: 01/09/25 Dental Screening Dental Screen Date: 12/07/24 HPI Wound on the Butt HPI Details Patient is a 79-year-old female with past medical history of pulmonary emphysema, essential hypertension, mixed hyperlipidemia, paroxysmal atrial fibrillation, CVA, type 2 diabetes with morbid obesity, and hypothyroidism Patient is presenting today accompanied by granddaughter with concerns of buttocks wound Reports that patient reports that she was in the hospital in November after having a fall Reports that she was discharged to rehab in the ear she has been 10 days The patient granddaughter reports that when the patient was discharged from rehab there was a red area on her right buttocks Reports that a over was still intact with just reddened Reports that the patient sits a lot and she also has incontinent issues Reports that this past Thursday the patient said that her but hurts and that it was itchy Granddaughter reports that she took a look and noticed that the patient has a wound on the left buttock On exam left buttock wound measures 4.2 x 2.9 cm, wound base with eschar and small amount of slough The patient was started on doxycycline and was referred to the wound clinic [facility] Medical History Obesity (BMI 30-39.9) Neuropathy Acquired hypothyroidism Mixed hyperlipidemia Essential hypertension Atrial fibrillation Hypothyroidism Obesity Type 2 diabetes mellitus with morbid obesity Annual physical exam Vitamin D deficiency HLD (hyperlipidemia) T2DM (type 2 diabetes mellitus) Diabetes mellitus Hypertension Surgical History History of vitrectomy History of surgery History of colonoscopy History of appendectomy History of cholecystectomy S/P JOSIE (total abdominal hysterectomy) Family History Father Diabetes Mother CHF (congestive heart failure) CVD (cardiovascular disease) Brother HIV (human immunodeficiency virus infection) Social History Household Members: None Housing: Condominium Do you presently have visiting nurse or other home services: No Alcohol intake: current Patient Tobacco Use Status: Former Tobacco user Tobacco use type: Cigarette Years Smoked: 30, started at 10, about 15 cig a day, e-Cigarette/Vaping Use: Currently Using Frequency of e-Cigarette/Vaping Use: Daily Second Hand Smoke Exposure: Yes Advance Directives Date on File: 12/15/23 service: No Current occupational status: retired Cognitive needs: No Hearing needs: No Vision needs: No Questionnaire Thrive Questionnaire Date Thrive assessed: 12/07/24 ARSLAN-7 AMB Questionnaire ARSLAN-7 Date ARSLAN - 7 assessed: 12/07/24 Source: Developed by Drs. Mendez Sanz, Shannan Quintanilla, Fuentes Sales and colleagues, with an educational aurelia from [employer]. Review of Systems Const Details: Denies chills, Denies fatigue, Denies fever(s), Denies headache(s) and Denies weakness HEENT Denies change in vision, Denies dizziness, Denies headache(s), Denies hearing loss, Denies nasal congestion, Denies sinus pain, Denies sinus pressure and Denies sore throat Card Denies chest pain, Denies lightheadedness, Denies dyspnea and Denies other (palpitations) Resp Denies cough, Denies dyspnea and Denies wheezing GI Denies abdominal pain, Denies melena, Denies hematochezia, Denies change in bowel habits, Denies dyspepsia and Denies nausea Denies hematuria and Denies dysuria Musc Denies abnormal gait, Denies myalgias, Denies arthralgias, Denies numbness and Denies tingling Skin/Breast Left buttock wound Neuro Denies abnormal gait, Denies dizziness, Denies headache(s), Denies memory loss, Denies numbness, Denies Sensory deficit (Neuro), Denies tingling and Denies weakness Psych Denies anxiety, Denies depression and Denies memory loss Endo Denies cold intolerance, Denies fatigue, Denies heat intolerance, Denies polydipsia and Denies polyuria Salvador/Lymph Denies easy bleeding and Denies easy bruising Aller/Immun Denies wheezing Physical exam (Primary Care) Vital Signs: Last Vital Signs Temp 97.5 F 01/09/25 15:03 Pulse 65 01/09/25 15:03 BP 110/62 01/09/25 15:03 Pulse Ox 98 01/09/25 15:03 Oxygen Delivery Method Room Air 01/09/25 15:03 BMI result Body Mass Index 29.1 Tobacco/Smoking Status: Tobacco use Status Tobacco use date assessed 01/09/25 01/09/25 15:10 Patient Tobacco Use Status Former Tobacco user 01/09/25 15:10 Tobacco use type Cigarette 01/09/25 15:10 e-Cigarette/Vaping Use Currently Using 01/09/25 15:10 Thrive Assessment: Date of Thrive Assessment Date Thrive assessed 12/07/24 01/09/25 15:10 Const Other: General: no acute distress, well developed, alert and awake Nutritional Appearance: well nourished Orientation/consciousness: patient oriented x3 HENMT Head: Yes normocephalic and Yes atraumatic Ears: hearing grossly normal bilaterally and TM's normal bilaterally General nose exam: Normal external nose present and Normal nares present Mouth: Normal oral and palatal mucosa present and moist mucous membranes Eyes Pupils: Equal, round and reactive pupils present and Pupil accommodation reflex normal EOM: EOMs intact bilaterally Neck Neck: Yes normal visual inspection, Yes no lymphadenopathy and Yes trachea midline Thyroid: Thyroid normal Lymphatic: no lymphadenopathy noted Chest Chest palpation & inspection: normal inspection of the chest Resp Effort & Inspection: normal respiratory effort Auscultation: clear to auscultation bilaterally Cardio Rate: regular rate Rhythm: regular rhythm Heart sounds: S1 normal heart sound present, S2 normal heart sound present, no gallops, no murmurs and no rubs GI Palpation (GI): Abdominal soft and nontender to palpation Auscultation: normal bowel sounds General: Yes no CVA tenderness Back/Spine/Pelvis Back: no CVA tenderness Cervical Spine: cervical ROM normal and No Cervical spine tenderness Thoracic/Lumbar Spine: No lumbar tenderness Skin General: warm and dry. Normal skin color. Normal skin turgor Wounds: See HPI Nails: normal Coding Level of Care Code Est Pt Level 3 (73189) Diagnoses Wound of left buttock, initial encounter S31.829A Encounter type: initial encounter Type 2 diabetes mellitus with hyperglycemia, with long-term current use of insulin E11.65; Z79.4 Diabetes mellitus halfway insulin use: with equipment operator intermodal yard use Diabetes mellitus complication status: with hyperglycemia Time Spent (min) 36 Assessment & Plan Assessment & Plan (1) Wound of left buttock: Code(s): S31.829A - Unspecified open wound of left buttock, initial encounter Category: Medical Qualifiers: Encounter type: initial encounter Qualified Code(s): S31.829A - Unspecified open wound of left buttock, initial encounter Plan: Discussed with the patient and granddaughter that given that she is diabetic it is not a good idea to try to manage the wound at home Doxycycline 100 mg b.i.d. ordered Referred to wound clinic (2) T2DM (type 2 diabetes mellitus): Code(s): E11.9 - Type 2 diabetes mellitus without complications Category: Medical Qualifiers: Diabetes mellitus equipment operator intermodal yard insulin use: with halfway use Diabetes mellitus complication status: with hyperglycemia Qualified Code(s): E11.65 - Type 2 diabetes mellitus with hyperglycemia; Z79.4 - jail (current) use of insulin Plan: Reinforced low sugar/carbohydrate diet and activity as tolerated Continue Liraglutide 1.2 mg DAILY, metformin to a 1000 mg b.i.d.WM, Orders: Referrals Wound Care Referral S31.588O - Unspecified open wound of left buttock, initial encounter Medications: New doxycycline hyclate 100 mg PO BID 10 caps 0RF S31.829A - Unspecified open wound of left buttock, initial encounter
[2025-01-09 15:03] VITALS: BP 110/62; PULSE 65; TEMP 36.4; O2SAT 98; BMI 29.1
== END 2025-01-09 15:38 | disposition home or self-care (01) ==
PROVIDERS: PCP Internal Medicine
DX: S31.829A Unspecified open wound of left buttock, initial encounter (principal); E11.65 Type 2 diabetes mellitus with hyperglycemia; Z79.4 Long term (current) use of insulin

== ENCOUNTER → 2025-01-09 14:55 | Outpatient (BNVA) | payer MEDICARE, SELFPAY | PROVIDERS: PCP Internal Medicine | DX: S31.829D Unspecified open wound of left buttock, subsequent encounter (principal); E11.65 Type 2 diabetes mellitus with hyperglycemia; Z79.4 Long term (current) use of insulin | CPT/HCPCS: 99212 ==

== ENCOUNTER → 2025-02-08 15:27 | Outpatient (REF) | payer MEDICARE, SELFPAY ==
--- OUTSIDE RECORDS SUMMARY | 2025-02-08 17:38 | XMS_ITS | Clinical Summary ---
Author Organization [facility] Address [address] [place] [address] Care Team Providers Care Analytical Research Program Manager Name Role Phone Allen Cortés MD Primary Care Provider [phone] Allergies No known active allergies Medications Medication [...] day. Active atorvastatin (LIPITOR) 80 MG tabletIndications:Ac [place] ischemic right MCA stroke (HCC) Take 1 tablet (80 mg total) by mouth daily. 30 tablet 06/30/2024 Active aspirin 81 MG chewable tabletIndications:Ac [place] ischemic right MCA stroke (HCC) Chew 1 [...] Years Used Date Smoking Tobacco: Never Assessed [facility] Utilities Answer Date Recorded In the [...] place to sleep or slept in a senior living (including now)? No 06/27/2024 Sex and Gender [...] - 99 mg/dL 06/29/2024 12:04 PM [facility] Comment:Fasting: <100 mg/dL, Non-Fasting: <200 mg/dL (ADA 2004) Blood Urea Nitrogen (BUN) 12 8 - 21 mg/dL 06/29/2024 12:04 PM [facility] Creatinine 0.8 0.4 - 1.1 mg/dL 06/29/2024 12:04 PM [facility] eGFR 75 >59 06/29/2024 12:04 PM [facility] Comment:CKD-EPI (2020) in mL /min/1.73 sq meters. Sodium 140 136 - 145 mmol/L 06/29/2024 12:04 PM [facility] Potassium 4.3 3.4 - 5.3 mmol/L 06/29/2024 12:04 PM [facility] Chloride 104 98 - 107 mmol/L 06/29/2024 12:04 PM [facility] CO2 23 22 - 33 mmol/L 06/29/2024 12:04 PM [facility] Anion Gap 13 7 - 17 06/29/2024 12:04 PM [facility] Calcium 8.9 8.7 - 10.5 mg/dL 06/29/2024 12:04 PM [facility] BUN/Creatinine Ratio 15 10.0 - 25.0 Ratio 06/29/2024 12:04 PM [facility] Blood (Plasma/Serum) 06/29/2024 10:27 AM EDT 06/29/2024 11:25 AM EDT Byron Victoria MD LAB BLOOD ORDERABLES [facility] [address] [place] [address], [facility] [address] [place] [address] * (ABNORMAL) Hemoglobin A1c with Estimated Average Glucose (06/27/2024 8:21 AM EDT) Hemoglobin A1C 7.0(H) <5.7 % 06/27/2024 9:07 AM [facility] Comment: A1c% ? Interpretation 5.7 - 6.0 ?Increase risk of diabetes 6.1 - 6.4 ?Higher risk of diabetes > or = 6.5 ?? Consistent with diabetes Diabetes Care, 33(Supp 1):S1-S61, 2010 Estimated Average Glucose 154 mg/dL 06/27/2024 9:07 AM [facility] Blood Blood specimen / Unknown 06/27/2024 8:21 AM EDT 06/27/2024 8:32 AM EDT Paul Ospina MD [place] [address], [place] [address] * (ABNORMAL) Lipid Panel (06/27/2024 8:21 AM EDT) Cholesterol, Total 141 <200 mg/dL 2023 9:18 AM T [facility] Triglycerides 169(H) <150 mg/dL 06/27/2024 9:18 AM [facility] Cholesterol, HDL 58 >39 mg/dL 06/27/20 9:18 AM [facility] Estimated LDL 49 <130 mg/dL 06/27/2024 9:18 AM [facility] Comment: NCEP Guidelines: ?< 100 mg/dL ??Optimal 100 - 129 mg/dL ??Near Optimal/Above Optimal 130 - 159 mg/dL ??Borderline High 160 - 189 mg/dL ??High ??>/= 190 mg/dL ??Very High Cholesterol/HDL Ratio 2.4 0.0 - 5.0 Ratio 06/27/2024 9:18 AM EDT [facility] Comment: Relative Risk ? Ratio - Male ? Ratio - Female ?0.5 ?3.4 ?3.3 ?1.0 ?5.0 ?4.4 ?2.0 ?9.6 ?7.1 ?3.0 ? 23.4 ? 11.0 Blood (Plasma/Serum) 06/27/2024 8:21 AM EDT 06/27/2024 8:32 AM EDT Paul Ospina MD LAB BLOOD ORDERABLE S Performing Organization Address [facility]/State/ZIP Co de Phone Number [address] [address], [address] [address] from Last 3 Months or Most Recently Relevant to Health Maintenance Advance Directives * DNR (Latest Code Status on File) Date Activated Date Inactivated Comments 06/27/2024 4:12 PM Question Answer Comments Decision thoroughly discussed with: Gail ent arrived with valid State [place] DNR Transfer form * Full Code Date Activated Date Inactivated Comments 06/26/2024 8:41 PM 06/27/2024 4:12 PM Care Teams Analytical Research Program Manager Relationship Specialty Start Date End Date Allen Cortés MD [address] [place] [address] PCP - General 06/26/24
--- OUTSIDE RECORDS SUMMARY | 2025-02-08 17:38 | XMS_ITS ---
Author Organization [facility] Address [address] [place] [address] Care Team Providers Care Informaticist Name Role Phone Milana NATARAJAN, Allen Primary Care Provider Desire Arias [phone] Encounters Encounter Location Date Provider Diagnosis [address] [address] 07/13/2024 Desire Ashford Plan Of Treatment No Information Progress Notes * Naty CERVANTES LDOB: [birth year] (79 yo F)Acc No.[id number]:07/13/2024 Progress Note Patient:?Naty CERVANTES Provider:?Desire Ashford DPM :1945???Age:78 Y???Sex:Female D ate:07/13/2024 Address:[address] [place], [place] [id number] Pcp:Allen Cortés MD Subjective: * Chief Complaints: * ??? * Medical History:? Objective: * Vitals:? Assessment: Plan: * Treatment: * Images: * The named appointment provid er may or may not be the originator of this progress note, and it is not deemed complete until electronically signed by the appointment provider. Sign off status: Pending * Provider:?Desire Ashford DPM Date:? Generated for Printi ng/Faxing/eTransmitting on:?02/08/2025 05:38 PM EDT
--- OUTSIDE RECORDS SUMMARY | 2025-02-08 17:38 | XMS_ITS | Continuity of Care Document ---
Author Organization [facility] Address [address] [place] [address]- Care Team Providers Care Social Studies Teacher Name Role Phone Allen Cortés MD Primary Care Physician Encounter [facility] [id number] Date(s): 12/24/24 - 01/23/[address] [address]- Attending Physician: Not on Staff, Attending MD Admitting Physician: Not on Staff, Admitting MD Referring Physician: Not on Staff, Referring MD Encounter Type: Pre-Outpt Allergies, Adverse Reactions, Alerts Substance Criticality Severity Reaction Reaction Severity Status furosemide Active amoxicillin Active lisinopril Active Augmentin Hives Active Latex Active traMADol Stomach upset Active oxyCODONE Stomach upset Active Medications amantadine 100 mg oral capsule Refills 0, Maintenance, 08/16/24 6:29:00 AM EDT, Partial fill upon patient request if the prescription is for a schedule II opioid drug. Start Date: 08/16/24 Status: Ordered Repeat number: 1 Aspirin Low Dose 81 mg oral delayed release tablet 0 Refills, Maintenance, 08/16/24 6:29:00 AM EDT, Partial fill upon patient request if the prescription is for a schedule II opioid drug. Start Date: 08/16/24 Status: Ordered Repeat number: 1 atorvastatin 80 mg oral tablet 0 Refills, Maintenance, 08/16/24 6:28:00 AM EDT, Partial fill upon patient request if the prescription is for a schedule II opioid drug. Start Date: 08/16/24 Status: Ordered Repeat number: 1 diclofenac 1% topical gel 1 application, Topically, 4 times a day, # 100 Gm, 0 Refills, Maintenance, 08/16/24 6:27:00 AM EDT, Gel, Partial fill upon patient request if the prescription is for a schedule II opioid drug. Start Date: 08/16/24 Status: Ordered Quantity: 100.0 Unit: g Repeat number: 1 Eliquis 5 mg oral tablet 0 Refills, Maintenance, 08/16/24 6:27:00 AM EDT, Partial fill upon patient request if the prescription is for a schedule II opioid drug. Start Date: 08/16/24 Status: Ordered Repeat number: 1 ezetimibe 10 mg oral tablet 0 Refills, Maintenance, 08/16/24 6:28:00 AM EDT, Partial fill upon patient request if the prescription is for a schedule II opioid drug. Start Date: 08/16/24 Status: Ordered Repeat number: 1 gabapentin 300 mg oral capsule Refills 0, Maintenance, 08/16/24 6:27:00 AM EDT, Partial fill upon patient request if the prescription is for a schedule II opioid drug. Start Date: 08/16/24 Status: Ordered Repeat number: 1 levothyroxine 0.112 mg oral tablet 0 Refills, Maintenance, 08/16/24 6:29:00 AM EDT, Partial fill upon patient request if the prescription is for a schedule II opioid drug. Start Date: 08/16/24 Status: Ordered Repeat number: 1 liraglutide 18 mg/3 mL subcutaneous solution 0 Refills, Maintenance, 08/16/24 6:27:00 AM EDT, Partial fill upon patient request if the prescription is for a schedule II opioid drug. Start Date: 08/16/24 Status: Ordered Repeat number: 1 liraglutide 18 mg/3 mL subcutaneous solution 0 Refills, Maintenance, 08/16/24 6:27:00 AM EDT, Partial fill upon patient request if the prescription is for a schedule II opioid drug. Start Date: 08/16/24 Status: Ordered Repeat number: 1 losartan 25 mg oral tablet 0 Refills, Maintenance, 08/16/24 6:28:00 AM EDT, Partial fill upon patient request if the prescription is for a schedule II opioid drug. Start Date: 08/16/24 Status: Ordered Repeat number: 1 metFORMIN 1000 mg oral tablet 0 Refills, Maintenance, 08/16/24 6:28:00 AM EDT, Partial fill upon patient request if the prescription is for a schedule II opioid drug. Start Date: 08/16/24 Status: Ordered Repeat number: 1 ofloxacin 0.3% ophthalmic solution 0 Refills, Maintenance, 08/16/24 6:27:00 AM EDT, Partial fill upon patient request if the prescription is for a schedule II opioid drug. Start Date: 08/16/24 Status: Ordered Repeat number: 1 ofloxacin 0.3% ophthalmic solution 0 Refills, Maintenance, 08/16/24 6:27:00 AM EDT, Partial fill upon patient request if the prescription is for a schedule II opioid drug. Start Date: 08/16/24 Status: Ordered Repeat number: 1 omeprazole 20 mg oral enteric coated capsule 1 capsule = 20 mg, By Mouth, Daily, # 30 capsule, 0 Refills, Maintenance, 08/16/24 6:30:00 AM EDT, EC Capsule, Partial fill upon patient request if the prescription is for a schedule II opioid drug. Start Date: 08/16/24 Status: Ordered Quantity: 30.0 Unit: capsule Repeat number: 1 pantoprazole 40 mg oral delayed release tablet 0 Refills, Maintenance, 08/16/24 6:30:00 AM EDT Start Date: 08/16/24 Status: Ordered Repeat number: 1 prednisolone ophthalmic acetate 1% suspension 0 Refills, Maintenance, 08/16/24 6:27:00 AM EDT, Partial fill upon patient request if the prescription is for a schedule II opioid drug. Start Date: 08/16/24 Status: Ordered Repeat number: 1 prednisolone ophthalmic acetate 1% suspension 0 Refills, Maintenance, 08/16/24 6:27:00 AM EDT, Partial fill upon patient request if the prescription is for a schedule II opioid drug. Start Date: 08/16/24 Status: Ordered Repeat number: 1 Victoza 18 mg/3 mL subcutaneous solution 0 Refills, Maintenance, 08/16/24 6:29:00 AM EDT, Partial fill upon patient request if the prescription is for a schedule II opioid drug. Start Date: 08/16/24 Status: Ordered Repeat number: 1 Patient Care team information Care Team Personnel Name: Allen Cortés MD Position: Reference Physician Member Role: PCP Address: [address] [place] [address] Telecom: Name: Kp Singh Position: S Outreach Member Role: Lifetime Consulting Physician Care Team Related Persons Name: TAZ HUMPHREYEN Insurance Providers Guarantor name: LEO Health Plan Information #: 1 Payer: [employer] ADV HMO Member Number: LEO Policy Number: LEO Group Number: [id number]
--- OUTSIDE RECORDS SUMMARY | 2025-02-08 17:38 | XMS_ITS | Patient Health Record ---
Author Organization [facility] Address [address] [place] [address] Care Team Providers Care Commutator Assembler Name Role Phone Milana NATARAJAN, Allen Primary Care Provider Desire Arias Unavailable [phone] Allergies No Known Allergies Reason For Referral [...] Vaccine Route Administration Date Status Comme nts Influenza Unknown 08/23/2020 Administered Influenza Unknown 09/30/2021 Administered Influenza Unknown 09/22/2022 Administered Influenza Unknown 08/24/2023 Administered COVID-19 Moderna Vaccine Unknown 09/12/2021 Administered First Dose: 12/26/2020 Second dose: 01/22/2021 Social History Tobacco Use: Social History Observation [...] Problem Acquired hammer toe of right foot (642323371537 9105) Other hammer toe(s) (acquired), right foot (M20.41) Active confirmed Problem Acquired hammer toe of left foot (417378531195 9103) Other hammer toe(s) (acquired), left foot (M20.42) Active confirmed Problem 310338144 Hammer toe of le ft foot (M20.42) Active confirmed Problem 08435317 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.42) Active confirmed Problem 52048421 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.072) Active confirmed Vital Signs Height 5 ft 1 in in 04/06/2024 Weight 176 lbs 04/06/2024 BMI 33.25 kg/m2 04/06/2024 Encounters Encounter Location Date Provider Diagnosis [facility] [address] [place] [address] 04/06/2024 Desire Ashford Type 2 diabetes mellitus with polyneuropathy E11.42 ; Other hammer toe(s) (acquired), right foot M20.41 ; Verruca pedis B07.0 ; Right foot pain M79.671 and Other hammer toe(s) (acquired), left foot M20.[facility] [address] 07/11/2024 Desire Ashford Assessments Encounter Date Diagnosis [...] Treatment Pending Test Test Name Order Date 38848-CRGGEPY NAIL, 6 OR MORE 01/23/2015 52256-Qlzymjjj Plate 01/23/2015 91821-Ckhsxoyr Plate Each Additional 01/2015 28777-DXVY SKIN LESIONS, OVER 4 01/24/20 15 Insurance Providers Payer Name Payer Address Payer Phone Subscriber Number Group Number Insured Name Patient Relationship to Insured Coverage Start Date Coverage End Date [employer] [place] Medicare Advantage [address] [facility] [id number] Naty Cervantes Self - patient is the insured Medical (General) History Medical History History ICD Code Chicken pox Measles Mumps Hypertension Thyroid disorder Diabetic Arthritis Back,Hip,and Knee pain CAD (Cholesterol) Gall bladder problems Vascular phlebitis (clots) Stroke Cataracts Hearing loss Surgical History Surgery Date(Month/Year) cholecystectomy hysterectomy 1994 back surgery 1991 gall bladder 1970 cataract surgery Hospitalization History Reason Date(Month/Year) [facility] [place]- rehab
--- OUTSIDE RECORDS SUMMARY | 2025-02-08 17:38 | XMS_ITS | Continuity of Care Document ---
Author Organization [facility] ter Address [address] [place] [address]- Care Team Providers Care Radio Board Operator Announcer Name Role Phone Allen Cortés MD [id number] Date(s): 12/23/24 - 01/22/[address] [address]- Attending Physician: Not on Staff, Attending MD [...] Position: Reference Physician Member Role: PCP Address: [address] [place] [address] Telecom: Name: Kp Singh Position: [facility] Outreach Member Role: Lifetime Consulting Physician Care Team Related Persons Name: TAZ HUMPHREYEN Insurance Providers Guarantor name: LEO Health Plan Information #: 1 Payer: [employer] MEDICARE ADV HMO Member Number: LEO Policy Number: LEO Group Number: [id number]
--- OUTSIDE RECORDS SUMMARY | 2025-02-08 17:38 | XMS_ITS ---
Author Organization [facility] Address [address] [place] [address] Care Team Providers Care Scratcher Name Role Phone Milana NATARAJAN, Allen Primary Care Provider Desire Arias [phone] REASON FOR VISIT cx 07/13 appt Encounters Encounter Location Date Provider Diagnosis [address] [address] 07/11/2024 Desire Ashford Plan Of Treatment No Information Progress Notes * LAZNaty Mario LDOB: [birth year] (78 yo F)Acc No.[id number]:07/11/2024 Patient:?Naty Cervantes :1945???Age:78 Y???Sex:Female Address:[address] [place] [address], [address] * true * Date:? Generated for Printi ng/Falesterg/eTransmitting on:?02/08/2025 05:38 PM EDT
--- OUTSIDE RECORDS SUMMARY | 2025-02-08 17:38 | XMS_ITS ---
[facility] Address [address] [place] [address] Care Team Providers Care Wagon Person Name Role Phone Milana NATARAJAN, Allen Primary Care Provider Desire Arias Unavailable [phone] Allergies No Known Allergies REASON FOR VISIT [...] 04/06/2024 Encounters Encounter Location Date Provider Diagnosis [facility] [address] [place] [address] 04/06/2024 Desire Ashford Type 2 diabetes mellitus [...] Pt defers any other forms of tx (02875) Keratoma Treatment Parring or Cutting o f Benign Hyperkeratotic Lesion(s) 46544 ( >4 Lesions) - The Benign hyperkeratotic [...] Naty CERVANTES LDOB: [birth year] (78 yo F)Acc No.[id number]:04/06/2024 Progress Note Patient:Naty Cook Provider:?Desire Ashford DPM :1945???Age:78 Y???Sex:Female D ate:04/06/2024 Address:[address] [place] [id number] Pcp:Allen Cortés MD Subjective: * Chief Complaints: [...] bladder 1970cataract surgery * Hospitalization/Major Diagno stic [place] [place] * Family History:?Mother: dece ased, [...] 6.3 * Examination: ???Ophthalmology Referral: ?DIABETES EYE EXAM?Diabetic Retinopathy Screening:?Yes ?Findings of Diabetic Eye Exam:?no retinopathy?Neurological: ?SENSORY:?Neurological exam demonstrates, reduced light touch sensation, [...] , plantar Forefoot , RIGHT.?General Examination: ?FOOT EXAM:?Lower Extremity Neurological Exam performed:?Yes ?Footwear Evaluation?Footwear Evaluation performed:?Yes?Orthopedic: ?DIGITAL DEFORMITIES:?Digital contracture, PIPJ, 2-5 B/L, incompl-reducible [...] Procedures:?Keratoma Treatment:?Parring or Cutting of Benign Hyperkeratotic Lesion(s)?70873 ( >4 Lesions) - The Benign hyperkeratotic lesions, as described above were pared, and/or cut utilizing a sterile #15 blade, tissue nippers, and/or dremel.?Wart Treatment:?Procedure?Verrucae were debrided to pin-point bleeding margins with sterile 15 surgical blade, silver nitrate chemocautery applied, recomm. immune-boosting meds such as zinc, recomm. follow up with topical chemosurgical agents, Pt defers any other forms of tx (59359).?Nail Reduction:?Nail Reduction?Trimming of dystrophic nails performed to reduce/remove overall nail length and girth, by manual and electrical means with use of a nail nipper and/or dremel, to more viable healthy nail plate or bed tissue 6-10 (G0127).? * Procedure Codes:?94757 Wart Destruction, 1-14, Modifiers: XS G0127 TRIMMING DYSTROPHIC NAILS ANY #, Modifiers: XS 32759 TRIM SKIN LESIONS, OVER 4, Modifiers: XS [...] Ashford DPM Date:? Generated for Peri gautam/Diego/Adarsh on:?02/08/2025 05:38 PM EDT History and Physical Notes * HPI (History [...]
== END ==
LOC: HO.CARD 15:27
PROVIDERS: PCP Internal Medicine; Visit Provider Internal Medicine Cardiovascular Disease
DX: I48.0 Paroxysmal atrial fibrillation (principal); R00.1 Bradycardia, unspecified
CPT/HCPCS: 93225

== ENCOUNTER → 2025-02-08 15:43 | Outpatient (BNV) | payer MEDICARE, SELFPAY | PROVIDERS: PCP Internal Medicine; Visit Provider Internal Medicine Cardiovascular Disease | DX: I48.91 Unspecified atrial fibrillation (principal); I49.1 Atrial premature depolarization; I49.3 Ventricular premature depolarization | CPT/HCPCS: 93227 ==

== ENCOUNTER 2025-02-10 15:02 | Outpatient (REF) | payer MEDICARE, SELFPAY ==
--- NOTE | 2025-02-10 15:05 | PFT_ITS ---
Flows: FEV1: 116 % of predicted at 2.05 L FVC: 104 % of predicted at 2.39 L FEV1/FVC: 86 % Bronchodilator response: Present in small to medium airways only. Volumes: Total lung capacity: 103 % of predicted at 4.51 L Residual volume: 104 % of predicted at 2.03 L Slow vital capacity: 105 % of predicted at 2.48 L Expiratory reserve volume: 172 % of predicted at 0.96 L Diffusion capacity: Mildly decreased, corrects to normal after adjustment for alveolar ventilation. Impression: No obstructive or restrictive ventilatory defect. Bronchodilator response is present in small to medium airways only. Decreased diffusion capacity suggests emphysema. MTDD
[2025-02-10 15:55] VITALS: PULSE 60; O2SAT 99
--- OUTSIDE RECORDS SUMMARY | 2025-02-10 17:08 | XMS_ITS | Clinical Summary ---
Author Organization [facility] Address [address] [place] [address] Care Team Providers Care Greaser Operator Name Role Phone Allen Cortés MD Primary Care Provider [phone] Allergies No known active allergies Medications Medication [...] day. Active atorvastatin (LIPITOR) 80 MG tabletIndications:[place] ischemic right MCA stroke (HCC) Take 1 tablet (80 mg total) by mouth daily. 30 tablet 06/30/2024 Active aspirin 81 MG chewable tabletIndications:[place] ischemic right MCA stroke (HCC) Chew 1 [...] Years Used Date Smoking Tobacco: Never Assessed [facility] Utilities Answer Date Recorded In the past [...] place to sleep or slept in a nursing home (including now)? No 06/27/2024 Sex and Gender [...] - 99 mg/dL 06/29/2024 12:04 PM T [facility] Comment:Fasting: <100 mg/dL, Non-Fasting: <200 mg/dL (ADA 2004) Blood Urea Nitrogen (BUN) 12 8 - 21 mg/dL 06/29/2024 12:04 PM [facility] Creatinine 0.8 0.4 - 1.1 mg/dL 06/29/2024 12:04 PM [facility] eGFR 75 >59 06/29/2024 12:04 PM [facility] Comment:CKD-EPI (2020) in mL /min/1.73 sq meters. Sodium 140 136 - 145 mmol/L 06/29/2024 12:04 PM [facility] Potassium 4.3 3.4 - 5.3 mmol/L 06/29/2024 12:04 PM [facility] Chloride 104 98 - 107 mmol/L 06/29/2024 12:04 PM [facility] CO2 23 22 - 33 mmol/L 06/29/2024 12:04 PM [facility] Anion Gap 13 7 - 17 06/29/2024 12:04 PM [facility] Calcium 8.9 8.7 - 10.5 mg/dL 06/29/2024 12:04 PM [facility] BUN/Creatinine Ratio 15 10.0 - 25.0 Ratio 06/29/2024 12:04 PM [facility] Blood (Plasma/Serum) 06/29/2024 10:27 AM EDT 06/29/2024 11:25 AM EDT Byron Victoria MD LAB BLOOD ORDERABLES [facility] [address] [place] [address], [facility] [address] [place] [address] * (ABNORMAL) Hemoglobin A1c with Estimated Average Glucose (06/27/2024 8:21 AM EDT) Hemoglobin A1C 7.0(H) <5.7 % 06/27/2024 9:07 AM T [facility] Comment: A1c% ? Interpretation 5.7 - 6.0 ?Increase risk of diabetes 6.1 - 6.4 ?Higher risk of diabetes > or = 6.5 ?? Consistent with diabetes Diabetes Care, 33(Supp 1):S1-S61, 2010 Estimated Average Glucose 154 mg/dL 06/27/2024 9:07 AM [facility] Blood Blood specimen / Unknown 06/27/2024 8:21 AM EDT 06/27/2024 8:32 AM EDT Paul Ospina MD LAB [place] [address], [place] [address] * (ABNORMAL) Lipid Panel (06/27/2024 8:21 AM EDT) Cholesterol, Total 141 <200 mg/dL 2023 9:18 AM T [facility] Triglycerides 169(H) <150 mg/dL 06/27/2024 9:18 AM [facility] Cholesterol, HDL 58 >39 mg/dL 06/27/20 9:18 AM [facility] Estimated LDL 49 <130 mg/dL 06/27/2024 9:18 AM [facility] Comment: NCEP Guidelines: ?< 100 mg/dL ??Optimal 100 - 129 mg/dL ??Near Optimal/Above Optimal 130 - 159 mg/dL ??Borderline High 160 - 189 mg/dL ??High ??>/= 190 mg/dL ??Very High Cholesterol/HDL Ratio 2.4 0.0 - 5.0 Ratio 06/27/2024 9:18 AM EDT [facility] Comment: Relative Risk ? Ratio - Male ? Ratio - Female ?0.5 ?3.4 ?3.3 ?1.0 ?5.0 ?4.4 ?2.0 ?9.6 ?7.1 ?3.0 ? 23.4 ? 11.0 Blood (Plasma/Serum) 06/27/2024 8:21 AM EDT 06/27/2024 8:32 AM EDT Paul Ospina MD LAB BLOOD ORDERABLE S Performing Organization Address [facility]/State/ZIP Co de Phone Number [address] [address], [address] [address] from Last 3 Months or Most Recently Relevant to Health Maintenance Advance Directives * DNR (Latest Code Status on File) Date Activated Date Inactivated Comments 06/27/2024 4:12 PM Question Answer Comments Decision thoroughly discussed with: Gail ent arrived with valid State of [place] DNR Transfer form * Full Code Date Activated Date Inactivated Comments 06/26/2024 8:41 PM 06/27/2024 4:12 PM Care Teams Greaser Operator Relationship Specialty Start Date End Date Allen Cortés MD [address] [place] [address] PCP - General 06/26/24
--- OUTSIDE RECORDS SUMMARY | 2025-02-10 17:09 | XMS_ITS | Patient Health Record ---
Author Organization [facility] Address [address] [place] [address] Care Team Providers Care Movie Critic Name Role Phone Milana NATARAJAN, Allen Primary Care Provider Desire Arias Unavailable [phone] Allergies No Known Allergies Reason For Referral [...] Problem Acquired hammer toe of right foot (860775766070 9105) Other hammer toe(s) (acquired), right foot (M20.41) Active confirmed Problem Acquired hammer toe of left foot (615874578112 9103) Other hammer toe(s) (acquired), left foot (M20.42) Active confirmed Problem 405014692 Hammer toe of le ft foot (M20.42) Active confirmed Problem 80734021 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.42) Active confirmed Problem 29169208 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.072) Active confirmed Vital Signs Height 5 ft 1 in in 04/06/2024 Weight 176 lbs 04/06/2024 BMI 33.25 kg/m2 04/06/2024 Encounters Encounter Location Date Provider Diagnosis [facility] [address] [place] [address] 04/06/2024 Desire Ashford Type 2 diabetes mellitus with polyneuropathy E11.42 ; Other hammer toe(s) (acquired), right foot M20.41 ; Verruca pedis B07.0 ; Right foot pain M79.671 and Other hammer toe(s) (acquired), left foot M20.42 [facility] [address] 07/11/2024 Desire Ashford Assessments Encounter Date Diagnosis [...] Treatment Pending Test Test Name Order Date 31746-FACWNXY NAIL, 6 OR MORE 01/23/2015 46518-Zqycubsm Plate 01/23/2015 44840-Ehhsxstp Plate Each Additional 01/2015 60479-WCQF SKIN LESIONS, OVER 4 01/24/20 15 Insurance Providers Payer Name Payer Address Payer Phone Subscriber Number Group Number Insured Name Patient Relationship to Insured Coverage Start Date Coverage End Date [employer] [place] Medicare Advantage [address] [facility] [address] [phone] [id number] Naty Cervantes Self - patient is the insured Medical (General) History Medical History History ICD Code Chicken pox Measles Mumps Hypertension Thyroid disorder Diabetic Arthritis Back,Hip,and Knee pain CAD (Cholesterol) Gall bladder problems Vascular phlebitis (clots) Stroke Cataracts Hearing loss Surgical History Surgery Date(Month/Year) cholecystectomy hysterectomy 1994 back surgery 1991 gall bladder 1970 cataract surgery Hospitalization History Reason Date(Month/Year) [facility] [place]
--- OUTSIDE RECORDS SUMMARY | 2025-02-10 17:09 | XMS_ITS ---
Author [facility] Address [address] [place] [address] Care Team Providers Care Glass Cutter Name Role Phone Milana NATARAJAN, Allen Primary Care Provider Desire Arias Unavailable [phone] Allergies No Known Allergies REASON FOR VISIT [...] Location Date Provider Diagnosis [facility] [address] [place] [address] 04/06/2024 Desire Ashford Type 2 diabetes mellitus [...] Pt defers any other forms of tx (98269) Keratoma Treatment Parring or Cutting o f Benign Hyperkeratotic Lesion(s) 18079 ( >4 Lesions) - The Benign hyperkeratotic [...] Naty CERVANTES LDOB: [birth year] (78 yo F)Acc No.[id number]:04/06/2024 Progress Note Patient:Naty Cook Provider:?Desire Ashford DPM :1945???Age:78 Y???Sex:Female D ate:04/06/2024 Address:[address] [place] [address], [id number] Pcp:Allen Cortés MD Subjective: * Chief Complaints: [...] bladder 1970cataract surgery * Hospitalization/Major Diagno stic Procedure:?[facility] [place]- [place]hab * [...] Procedures:?Keratoma Treatment:?Parring or Cutting of Benign Hyperkeratotic Lesion(s)?93515 ( >4 Lesions) - The Benign hyperkeratotic lesions, as described above were pared, and/or cut utilizing a sterile #15 blade, tissue nippers, and/or dremel.?Wart Treatment:?Procedure?Verrucae were debrided to pin-point bleeding margins with sterile 15 surgical blade, silver nitrate chemocautery applied, recomm. immune-boosting meds such as zinc, recomm. follow up with topical chemosurgical agents, Pt defers any other forms of tx (72765).?Nail Reduction:?Nail Reduction?Trimming of dystrophic nails performed to reduce/remove overall nail length and girth, by manual and electrical means with use of a nail nipper and/or dremel, to more viable healthy nail plate or bed tissue 6-10 (G0127).? * Procedure Codes:?87010 Wart Destruction, 1-14, Modifiers: XS G0127 TRIMMING DYSTROPHIC NAILS ANY #, Modifiers: XS 96438 TRIM SKIN LESIONS, OVER 4, Modifiers: XS [...] Ashford DPM Date:? Generated for Peri gautam/Diego/Adarsh on:?02/10/2025 05:08 PM EDT History and Physical Notes * [...]
--- OUTSIDE RECORDS SUMMARY | 2025-02-10 17:09 | XMS_ITS ---
Author Organization [facility] Address [address] [place] [address] Care Team Providers Care Computer Typesetter Name Role Phone Milana NATARAJAN, Allen Primary Care Provider Desire Arias [phone] REASON FOR VISIT cx 07/13 appt Encounters Encounter Location Date Provider Diagnosis [address] [address] 07/11/2024 Desire Ashford Plan Of Treatment No Information Progress Notes * LAZNaty Mario LDOB: [birth year] (78 yo F)Acc No.[id number]:07/11/2024 Patient:?Naty Cervantes :1945???Age:78 Y???Sex:Female Address:[address] [place] [address], [address] * true * Date:? Generated for Printi ng/Falesterg/eTransmitting on:?02/10/2025 05:08 PM EDT
--- OUTSIDE RECORDS SUMMARY | 2025-02-10 17:09 | XMS_ITS ---
Author Organization [facility] Address [address] [place] [address] Care Team Providers Care Photographic Laboratory Technician Name Role Phone Milana NATARAJAN, Allen Primary Care Provider Desire Arias [phone] Encounters Encounter Location Date Provider Diagnosis [address] [address] 07/13/2024 Desire Ashford Plan Of Treatment No Information Progress Notes * Naty CERVANTES LDOB: [birth year] (79 yo F)Acc No.[id number]:07/13/2024 Progress Note Patient:?Naty CERVANTES Provider:?Desire Ashford DPM :1945???Age:78 Y???Sex:Female D ate:07/13/2024 Address:[address] [place], [place] [address] Pcp:Allen Cortés MD Subjective: * Chief Complaints: [...] Ashford DPM Date:? Generated for Printi ng/Faxing/eTransmitting on:?02/10/2025 05:09 PM EDT
== END 2025-02-10 15:03 | disposition home or self-care (01) ==
LOC: HO.RESP 15:02
PROVIDERS: PCP Internal Medicine; Visit Provider Internal Medicine Pulmonary Disease
DX: J43.9 Emphysema, unspecified (principal)
CPT/HCPCS: 94010; 94640; 94727; 94729

== ENCOUNTER → 2025-02-10 15:05 | Outpatient (BNV) | payer MEDICARE, SELFPAY | PROVIDERS: PCP Internal Medicine; Visit Provider Internal Medicine Pulmonary Disease | DX: J43.9 Emphysema, unspecified (principal) | CPT/HCPCS: 94060; 94727; 94729 ==

== ENCOUNTER 2025-02-15 13:26 | Outpatient (AMB) | payer MEDICARE, SELFPAY ==
[2025-02-15 13:32] VITALS: BP 132/62; PULSE 54; O2SAT 98; BMI 29.3
--- NOTE | 2025-02-15 13:32 | A.OFFVIS_ITS ---
Vital Signs 02/15/25 13:32 Height 5 ft 1 in Weight 155 lb BMI 29.3 BP 132/62 Blood Pressure Location Rt brachial Position Sitting Pulse 54 Pulse Source Doppler Pulse Oximetry (%) 98 Oxygen Delivery Method Room Air Intake Visit Reasons: Obstructive sleep apnea Allergies amoxicillin [Augmentin] Allergy (Unknown, Verified 02/15/25 13:38) hives clavulanic acid [Augmentin] Allergy (Unknown, Verified 02/15/25 13:38) hives furosemide Allergy (Unknown, Verified 02/15/25 13:38) unknown latex [LATEX] Allergy (Unknown, Verified 02/15/25 13:38) UNKNOWN lisinopril Allergy (Unknown, Verified 02/15/25 13:38) Unknown oxycodone [Percocet] Allergy (Unknown, Verified 02/15/25 13:38) Stomach upset tramadol Allergy (Unknown, Verified 02/15/25 13:38) Stomach uspet HPI HPI Obstructive sleep apnea: Details: 79-year-old lady, former 40+ pack-year smoker followed for pulmonary emphysema without fixed obstruction and nocturnal hypoxemia, now on supplemental oxygen at night. Patient denies any recent exacerbations. She has completed her pulmonary function test. [facility] Medical History (Updated 02/15/25 @ 13:53 by Joe Robertson MD) Buttock wound Obesity (BMI 30-39.9) Neuropathy Acquired hypothyroidism Mixed hyperlipidemia Essential hypertension Atrial fibrillation Hypothyroidism Obesity Type 2 diabetes mellitus with morbid obesity Annual physical exam Vitamin D deficiency HLD (hyperlipidemia) T2DM (type 2 diabetes mellitus) Diabetes mellitus Hypertension Surgical History History of vitrectomy History of surgery History of colonoscopy History of appendectomy History of cholecystectomy S/P JOSIE (total abdominal hysterectomy) Family History Father Diabetes Mother CHF (congestive heart failure) CVD (cardiovascular disease) Brother HIV (human immunodeficiency virus infection) Social History Household Members: None Housing: Condominium Do you presently have visiting nurse or other home services: No Alcohol intake: current Patient Tobacco Use Status: Former Tobacco user Tobacco use type: Cigarette Years Smoked: 30, started at 10, about 15 cig a day, e-Cigarette/Vaping Use: Currently Using Second Hand Smoke Exposure: Yes Advance Directives Date on File: 12/15/23 service: No Current occupational status: retired Cognitive needs: No Hearing needs: No Vision needs: No Review of Systems Const Denies daytime sleepiness, Denies excessive sweating, Denies fatigue, Denies fever(s), Denies lethargy, Denies malaise, Denies night sweats, Denies snoring and Denies weight loss Eyes Denies blurry vision and Denies itchy eyes ENT Denies nasal congestion, Denies post nasal drip, Denies sinus pain, Denies sinus pressure and Denies other ( Thrush) Card Denies chest pain, Denies pedal edema, Denies dyspnea, Denies orthopnea and Denies paroxysmal nocturnal dyspnea Resp Denies cough, Denies hemoptysis, Denies excessive phlegm production, Denies dyspnea, Denies snoring and Denies wheezing GI Denies abdominal pain and Denies heartburn Musc Denies myalgias, Denies arthralgias and Denies joint swelling Skin/Breast Denies rash Neuro Denies memory loss and Denies seizure-like activity Psych Denies abnormal sleep pattern, Denies anxiety and Denies memory loss Endo Denies excessive sweating, Denies fatigue and Denies heat intolerance Salvador/Lymph Denies easy bruising Aller/Immun Denies itchy eyes, Denies seasonal rhinorrhea and Denies wheezing Physical Exam Vital Signs: Last Vital Signs Pulse 54 02/15/25 13:32 BP 132/62 02/15/25 13:32 Pulse Ox 98 02/15/25 13:32 Oxygen Delivery Method Room Air 02/15/25 13:32 BMI result Body Mass Index 29.3 Const General: no acute distress and alert Nutritional Appearance: not obese Orientation/consciousness: Other orientation findings ( oriented) HEENT Head: Yes atraumatic Eyes General: appearance normal, both eyes and all related structures Sclerae: sclerae normal EOM: EOMs intact bilaterally Neck Neck: Yes supple Lymphatic: no lymphadenopathy noted Resp Effort & Inspection: normal respiratory effort and no use of accessory muscles Auscultation: clear to auscultation bilaterally Cardio Rate: regular rate Rhythm: regular rhythm Heart sounds: no gallops, Murmur heart sound present systolic II/ and no rubs Skin General skin exam: other ( warm) Extrem General: No clubbing, No cyanosis and No edema Assessment & Plan Assessment & Plan (1) Nocturnal hypoxemia: Code(s): G47.34 - Idiopathic sleep related nonobstructive alveolar hypoventilation Category: Medical Plan: Will obtain overnight oximetry to monitor proper response to nocturnal oxygen. Continue nocturnal supplemental oxygen. (2) Pulmonary emphysema: Code(s): J43.9 - Emphysema, unspecified Category: Medical Plan: Results of pulmonary function test reviewed, no fixed obstruction. Continue to monitor clinically. (3) Dyspnea on exertion: Code(s): R06.09 - Other forms of dyspnea Category: Medical Plan: Will obtain 2D echocardiogram for further evaluation. Orders: Orders Overnight Pulse Oximetry Today G47.34 - Idiopathic sleep related nonobstructive alveolar hypoventilation CA echo transthoracic complete Today R06.09 - Other forms of dyspnea Coding Level of Care Code Est Pt Level 4 (15958) Diagnoses Nocturnal hypoxemia G47.34 Pulmonary emphysema J43.9 Dyspnea on exertion R06.09
--- OUTSIDE RECORDS SUMMARY | 2025-02-15 16:01 | XMS_ITS | Patient Health Record ---
Author Organization [facility] Address [address] [place] [address] Care Team Providers Care Documentation Analyst Name Role Phone Milana NATARAJAN, Allen Primary Care Provider Desire Arias Unavailable [phone] Allergies No Known Allergies Reason For Referral [...] Problem Acquired hammer toe of right foot (813788597123 9105) Other hammer toe(s) (acquired), right foot (M20.41) Active confirmed Problem Acquired hammer toe of left foot (087967746386 9103) Other hammer toe(s) (acquired), left foot (M20.42) Active confirmed Problem 010046498 Hammer toe of le ft foot (M20.42) Active confirmed Problem 14141361 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.42) Active confirmed Problem 07982958 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.072) Active confirmed Vital Signs Height 5 ft 1 in in 04/06/2024 Weight 176 lbs 04/06/2024 BMI 33.25 kg/m2 04/06/2024 Encounters Encounter Location Date Provider Diagnosis [facility] [place] [address] [place] [address] 04/06/2024 Desire Ashford Type 2 diabetes mellitus with polyneuropathy E11.42 ; Other hammer toe(s) (acquired), right foot M20.41 ; Verruca pedis B07.0 ; Right foot pain M79.671 and Other hammer toe(s) (acquired), left foot M20.[facility] [address] 07/11/2024 Desire Ashford Assessments Encounter Date Diagnosis [...] Treatment Pending Test Test Name Order Date 01357-MTVFVBO NAIL, 6 OR MORE 01/23/2015 95218-Ejvcirsk Plate 01/23/2015 06507-Mmqjqnkt Plate Each Additional 01/2015 47969-BIIV SKIN LESIONS, OVER 4 01/24/20 15 Insurance Providers Payer Name Payer Address Payer Phone Subscriber Number Group Number Insured Name Patient Relationship to Insured Coverage Start Date Coverage End Date [employer] [place] Medicare Advantage [address] [facility] [address] [id number] Naty Cervantes Self - patient is the insured Medical (General) History Medical History History ICD Code Chicken pox Measles Mumps Hypertension Thyroid disorder Diabetic Arthritis Back,Hip,and Knee pain CAD (Cholesterol) Gall bladder problems Vascular phlebitis (clots) Stroke Cataracts Hearing loss Surgical History Surgery Date(Month/Year) cholecystectomy hysterectomy 1994 back surgery 1991 gall bladder 1970 cataract surgery Hospitalization History Reason Date(Month/Year) [facility] [place]
--- OUTSIDE RECORDS SUMMARY | 2025-02-15 16:01 | XMS_ITS ---
Author Organization [facility] Address [address] [place] [address] Care Team Providers Care Credit Products Officer Name Role Phone Milana NATARAJAN, Allen Primary Care Provider Desire Arias [phone] REASON FOR VISIT cx 07/13 appt Encounters Encounter Location Date Provider Diagnosis [address] [address] 07/11/2024 Desire Ashford Plan Of Treatment No Information Progress Notes * LAZNaty Mario LDOB: [birth year] (78 yo F)Acc No.[id number]:07/11/2024 Patient:?Naty Cervantes :1945???Age:78 Y???Sex:Female Address:[address] [place] [address], [address] * true * Date:? Generated for Printi ng/Falesterg/eTransmitting on:?02/15/2025 04:01 PM EDT
--- OUTSIDE RECORDS SUMMARY | 2025-02-15 16:01 | XMS_ITS | Clinical Summary ---
Author Organization [facility] Address [address] [place] [address] Care Team Providers Care Certified Rehabilitation Counselor Name Role Phone Allen Cortés MD Primary Care Provider [phone] Allergies No known active allergies Medications Medication [...] day. Active atorvastatin (LIPITOR) 80 MG tabletIndications:Ac [place] ischemic right MCA stroke (HCC) Take 1 tablet (80 mg total) by mouth daily. 30 tablet 06/30/2024 Active aspirin 81 MG chewable tabletIndications:Ac [place] ischemic right MCA stroke (HCC) Chew 1 [...] Years Used Date Smoking Tobacco: Never Assessed [facility] Utilities Answer Date Recorded In the [...] - 99 mg/dL 06/29/2024 12:04 PM T [facility] Comment:Fasting: <100 mg/dL, Non-Fasting: <200 mg/dL [...] EDT Byron Victoria MD LAB BLOOD ORDERABLES [facility] [address] [place] [address], [facility] [address] [place] [address] * (ABNORMAL) Hemoglobin A1c with Estimated Average Glucose (06/27/2024 8:21 AM EDT) Hemoglobin A1C 7.0(H) <5.7 % 06/27/2024 9:07 AM T [facility] Comment: A1c% ? Interpretation 5.7 - 6.0 ?Increase risk of diabetes 6.1 - 6.4 ?Higher risk of diabetes > or = 6.5 ?? Consistent with diabetes Diabetes Care, 33(Supp 1):S1-S61, 2010 Estimated Average Glucose 154 mg/dL 06/27/2024 9:07 AM [facility] Blood Blood specimen / Unknown 06/27/2024 8:21 AM EDT 06/27/2024 8:32 AM EDT Paul Ospina MD LAB [place] [address], [place] [address] * (ABNORMAL) Lipid Panel (06/27/2024 8:21 AM EDT) Cholesterol, Total 141 <200 mg/dL 2023 9:18 AM T [facility] Triglycerides 169(H) <150 mg/dL 06/27/2024 9:18 [...] - 5.0 Ratio 06/27/2024 9:18 AM EDT [facility] Comment: Relative Risk ? Ratio - Male ? Ratio - Female ?0.5 ?3.4 ?3.3 ?1.0 ?5.0 ?4.4 ?2.0 ?9.6 ?7.1 ?3.0 ? 23.4 ? 11.0 Blood (Plasma/Serum) 06/27/2024 8:21 AM EDT 06/27/2024 8:32 AM EDT Paul Ospina MD LAB BLOOD ORDERABLE S Performing Organization Address [facility]/State/ZIP Co de Phone Number [address] [address], [address] [address] from Last 3 Months or Most Recently Relevant to Health Maintenance Advance Directives * DNR (Latest Code Status on File) Date Activated Date Inactivated Comments 06/27/2024 4:12 PM Question Answer Comments Decision thoroughly discussed with: Gail ent arrived with valid [place] DNR Transfer form * Full Code Date Activated Date Inactivated Comments 06/26/2024 8:41 PM 06/27/2024 4:12 PM Care Teams Certified Rehabilitation Counselor Relationship Specialty Start Date End Date Allen Cortés MD [address] [place] [address] PCP - General 06/26/24
--- OUTSIDE RECORDS SUMMARY | 2025-02-15 16:01 | XMS_ITS ---
Author Organization [facility] Address [address] [place] [address] Care Team Providers Care Receiving Associate Store Name Role Phone Milana NATARAJAN, Allen Primary Care Provider Desire Arias Unavailable [phone] Allergies No Known Allergies REASON FOR VISIT [...] 04/06/2024 Encounters Encounter Location Date Provider Diagnosis [facility] [place] [address] [place] [address] 04/06/2024 Desire Ashford Type 2 diabetes mellitus [...] Pt defers any other forms of tx (84320) Keratoma Treatment Parring or Cutting o f Benign Hyperkeratotic Lesion(s) 78730 ( >4 Lesions) - The Benign hyperkeratotic [...] Naty CERVANTES LDOB: [birth year] (78 yo F)Acc No.[id number]:04/06/2024 Progress Note Patient:Naty Cook Provider:?Desire Ashford DPM :1945???Age:78 Y???Sex:Female D ate:04/06/2024 Address:[address] [place] [address], [facility] Pcp:Allen Cortés MD Subjective: * Chief Complaints: [...] bladder 1970cataract surgery * Hospitalization/Major Diagno stic Procedure:?[facility] [place]- [place]- [place]hab * Family [...] Procedures:?Keratoma Treatment:?Parring or Cutting of Benign Hyperkeratotic Lesion(s)?78649 ( >4 Lesions) - The Benign hyperkeratotic lesions, as described above were pared, and/or cut utilizing a sterile #15 blade, tissue nippers, and/or dremel.?Wart Treatment:?Procedure?Verrucae were debrided to pin-point bleeding margins with sterile 15 surgical blade, silver nitrate chemocautery applied, recomm. immune-boosting meds such as zinc, recomm. follow up with topical chemosurgical agents, Pt defers any other forms of tx (15916).?Nail Reduction:?Nail Reduction?Trimming of dystrophic nails performed to reduce/remove overall nail length and girth, by manual and electrical means with use of a nail nipper and/or dremel, to more viable healthy nail plate or bed tissue 6-10 (G0127).? * Procedure Codes:?11188 Wart Destruction, 1-14, Modifiers: XS G0127 TRIMMING DYSTROPHIC NAILS ANY #, Modifiers: XS 77758 TRIM SKIN LESIONS, OVER 4, Modifiers: XS [...] Ashford DPM Date:? Generated for Peri gautam/Diego/Adarsh on:?02/15/2025 04:01 PM EDT History and Physical Notes * [...]
--- OUTSIDE RECORDS SUMMARY | 2025-02-15 16:02 | XMS_ITS ---
Author Organization [facility] Address [address] [place] [address] Care Team Providers Care Inspector And Adjuster Golf Club Head Name Role Phone Milana NATARAJAN, Allen Primary Care Provider Desire Arias [phone] Encounters Encounter Location Date Provider Diagnosis [address] [address] 07/13/2024 Desire Ashford Plan Of Treatment No Information Progress Notes * Naty CERVANTES LDOB: [birth year] (79 yo F)Acc No.[id number]:07/13/2024 Progress Note Patient:?Naty CERVANTES Provider:?Desire Ashford DPM :1945???Age:78 Y???Sex:Female D ate:07/13/2024 Address:[address] [place], [place] [address] Pcp:Allen Cortés MD Subjective: * Chief Complaints: [...] Ashford DPM Date:? Generated for Printi ng/Faxing/eTransmitting on:?02/15/2025 04:01 PM EDT
== END 2025-02-15 16:01 | disposition home or self-care (01) ==
LOC: HO.HPS 13:27
PROVIDERS: PCP Internal Medicine; Visit Provider Internal Medicine Pulmonary Disease
DX: G47.34 Idiopathic sleep related nonobstructive alveolar hypoventilation (principal); J43.9 Emphysema, unspecified; R06.09 Other forms of dyspnea
CPT/HCPCS: 99214

== ENCOUNTER → 2025-02-15 13:26 | Outpatient (BNVA) | payer MEDICARE, SELFPAY | PROVIDERS: PCP Internal Medicine; Visit Provider Internal Medicine Pulmonary Disease | DX: G47.34 Idiopathic sleep related nonobstructive alveolar hypoventilation (principal); J43.9 Emphysema, unspecified; R06.09 Other forms of dyspnea | CPT/HCPCS: 99212 ==

== ENCOUNTER 2025-03-01 12:46 | Outpatient (RCR) | payer MEDICARE, SELFPAY | END 2025-04-12 14:16 | disposition home or self-care (01) | LOC: HO.WCC 12:46 | PROVIDERS: PCP Internal Medicine; Visit Provider Surgery | DX: E11.622 Type 2 diabetes mellitus with other skin ulcer (principal); L89.326 Pressure-induced deep tissue damage of left buttock; E11.42 Type 2 diabetes mellitus with diabetic polyneuropathy; I10 Essential (primary) hypertension; Z79.4 Long term (current) use of insulin; Z79.84 Long term (current) use of oral hypoglycemic drugs; Z87.891 Personal history of nicotine dependence; Z86.718 Personal history of other venous thrombosis and embolism | CPT/HCPCS: 99213 ==

== ENCOUNTER 2025-03-02 10:15 | Outpatient (AMB) | payer MEDICARE, SELFPAY ==
--- NOTE | 2025-03-02 10:29 | A.OFFVIS_ITS ---
Vital Signs 03/02/25 10:32 Height 5 ft 1 in Weight 155 lb BMI 29.3 Intake Visit Reasons: OV- Left knee OA, last inj 11/06/23 Intake Note: Naty is a 79 year old female who presents today for a repeat Left Knee Injection. She has Left knee OA and is not a surgical candidate, last injection 10/2023.Patient reports that thiso injection was ahelpful and she would like to repeat injection today,. Allergies amoxicillin [Augmentin] Allergy (Unknown, Verified 03/02/25 10:33) hives clavulanic acid [Augmentin] Allergy (Unknown, Verified 03/02/25 10:33) hives furosemide Allergy (Unknown, Verified 03/02/25 10:33) unknown latex [LATEX] Allergy (Unknown, Verified 03/02/25 10:33) UNKNOWN lisinopril Allergy (Unknown, Verified 03/02/25 10:33) Unknown oxycodone [Percocet] Allergy (Unknown, Verified 03/02/25 10:33) Stomach upset tramadol Allergy (Unknown, Verified 03/02/25 10:33) Stomach uspet HPI HPI OV- Left knee OA, last inj 11/06/23: Details: Naty is a 79 year old female who presents today for a repeat Left Knee Injection. She has Left knee OA and is not a surgical candidate, last injection 10/2023. This injection was helpful. Today she is complaining of continued left knee pain. She has had multiple strokes so she is not clear if her pain is coming from that or from arthritis. COUNT INCLUDES THE [facility] Medical History (Updated 03/02/25 @ 11:07 by Brandon Jauregui MD) Buttock wound Obesity (BMI 30-39.9) Neuropathy Acquired hypothyroidism Mixed hyperlipidemia Essential hypertension Atrial fibrillation Hypothyroidism Obesity Type 2 diabetes mellitus with morbid obesity Annual physical exam Vitamin D deficiency HLD (hyperlipidemia) T2DM (type 2 diabetes mellitus) Diabetes mellitus Hypertension Surgical History History of vitrectomy History of surgery History of colonoscopy History of appendectomy History of cholecystectomy S/P JOSIE (total abdominal hysterectomy) Family History Father Diabetes Mother CHF (congestive heart failure) CVD (cardiovascular disease) Brother HIV (human immunodeficiency virus infection) Social History Household Members: None Housing: Condominium Do you presently have visiting nurse or other home services: No Alcohol intake: current Patient Tobacco Use Status: Former Tobacco user Tobacco use type: Cigarette Years Smoked: 30, started at 10, about 15 cig a day, e-Cigarette/Vaping Use: Currently Using Second Hand Smoke Exposure: Yes Advance Directives Date on File: 12/15/23 service: No Current occupational status: retired Cognitive needs: No Hearing needs: No Vision needs: No Physical Exam Vital Signs: BMI result Body Mass Index 29.3 Extrem Other: ttp left medial compartment Office Procedures Joint Inj/Aspir; Non-Pain Clin Joint Injection/Drain Details: Injected 1 mL of Decadron and 3 mL 1% lidocaine and 3 mL of 0.25% Marcaine. Site was prepped using aseptic technique. Patient tolerated the procedure well. Shoulders, Hips, Knees, Knee Large Joint Injection : Left Knee Coding Procedure code (CPT) selection complete Assessment & Plan Assessment & Plan (1) Arthritis of left knee: Code(s): M17.12 - Unilateral primary osteoarthritis, left knee Category: Medical Plan: 79-year-old woman with multiple CVAs who has left knee arthritis. I injected her left knee today. She may follow up no sooner than 3 months. No additional intervention warranted. Coding Level of Care Code Est Pt Level 3 (99117) Diagnoses Arthritis of left knee M17.12 CPT Codes Shoulders, Hips, Knees, - Knee Large Joint Injection : Left Knee ([id number])
[2025-03-02 10:32] VITALS: BMI 29.3
--- OUTSIDE RECORDS SUMMARY | 2025-03-02 12:00 | XMS_ITS | Clinical Summary ---
Author Organization [facility] Address [address] [place] [address] Care Team Providers Care Pool Table Mechanic Name Role Phone Allen Cortés MD Primary Care Provider Allergies No known active allergies Medications Medication [...] day. Active atorvastatin (LIPITOR) 80 MG tabletIndications:Ac [place] ischemic right MCA stroke (HCC) Take 1 tablet (80 mg total) by mouth daily. 30 tablet 06/30/2024 Active aspirin 81 MG chewable tabletIndications:Ac [place] ischemic right MCA stroke (HCC) Chew 1 [...] Years Used Date Smoking Tobacco: Never Assessed [facility] Utilities Answer Date Recorded In the [...] place to sleep or slept in a penitentiary (including now)? No 06/27/2024 Sex and Gender [...] - 99 mg/dL 06/29/2024 12:04 PM T [facility] Comment:Fasting: <100 mg/dL, Non-Fasting: <200 mg/dL (ADA 2004) Blood Urea Nitrogen (BUN) 12 8 - 21 mg/dL 06/29/2024 12:04 PM [facility] Creatinine 0.8 0.4 - 1.1 mg/dL 06/29/2024 12:04 PM [facility] eGFR 75 >59 06/29/2024 12:04 PM [facility] Comment:CKD-EPI (2020) in mL /min/1.73 sq meters. Sodium 140 136 - 145 mmol/L 06/29/2024 12:04 PM [facility] Potassium 4.3 3.4 - 5.3 mmol/L 06/29/2024 12:04 PM [facility] Chloride 104 98 - 107 mmol/L 06/29/2024 12:04 PM [facility] CO2 23 22 - 33 mmol/L 06/29/2024 12:04 PM [facility] Anion Gap 13 7 - 17 06/29/2024 12:04 PM [facility] Calcium 8.9 8.7 - 10.5 mg/dL 06/29/2024 12:04 PM [facility] BUN/Creatinine Ratio 15 10.0 - 25.0 Ratio 06/29/2024 12:04 PM [facility] Blood (Plasma/Serum) 06/29/2024 10:27 AM EDT 06/29/2024 11:25 AM EDT Byron Victoria MD LAB BLOOD ORDERABLES [facility] [address] [place] [address], [facility] [address] [place] [address] * (ABNORMAL) Hemoglobin A1c with Estimated Average Glucose (06/27/2024 8:21 AM EDT) Hemoglobin A1C 7.0(H) <5.7 % 06/27/2024 9:07 AM T [facility] Comment: A1c% ? Interpretation 5.7 - 6.0 ?Increase risk of diabetes 6.1 - 6.4 ?Higher risk of diabetes > or = 6.5 ?? Consistent with diabetes Diabetes Care, 33(Supp 1):S1-S61, 2010 Estimated Average Glucose 154 mg/dL 06/27/2024 9:07 AM [facility] Blood Blood specimen / Unknown 06/27/2024 8:21 AM EDT 06/27/2024 8:32 AM EDT Paul Ospina MD LAB [place]OD [place] [address], [place] [address] * (ABNORMAL) Lipid Panel (06/27/2024 8:21 AM EDT) Cholesterol, Total 141 <200 mg/dL 2023 9:18 AM T [facility] Triglycerides 169(H) <150 mg/dL 06/27/2024 9:18 AM [facility] Cholesterol, HDL 58 >39 mg/dL 06/27/20 9:18 AM [facility] Estimated LDL 49 <130 mg/dL 06/27/2024 9:18 AM [facility] Comment: NCEP Guidelines: ?< 100 mg/dL ??Optimal 100 - 129 mg/dL ??Near Optimal/Above Optimal 130 - 159 mg/dL ??Borderline High 160 - 189 mg/dL ??High ??>/= 190 mg/dL ??Very High Cholesterol/HDL Ratio 2.4 0.0 - 5.0 Ratio 06/27/2024 9:18 AM EDT [facility] Comment: Relative Risk ? Ratio - Male ? Ratio - Female ?0.5 ?3.4 ?3.3 ?1.0 ?5.0 ?4.4 ?2.0 ?9.6 ?7.1 ?3.0 ? 23.4 ? 11.0 Blood (Plasma/Serum) 06/27/2024 8:21 AM EDT 06/27/2024 8:32 AM EDT Paul Ospina MD LAB BLOOD ORDERABLE S Performing Organization Address [facility]/State/ZIP Co de Phone Number [address] [address], [address] [address] from Last 3 Months or Most Recently Relevant to Health Maintenance Advance Directives * DNR (Latest Code Status on File) Date Activated Date Inactivated Comments 06/27/2024 4:12 PM Question Answer Comments Decision thoroughly discussed with: Gail ent arrived with valid [place] DNR Transfer form * Full Code Date Activated Date Inactivated Comments 06/26/2024 8:41 PM 06/27/2024 4:12 PM Care Teams Pool Table Mechanic Relationship Specialty Start Date End Date Allen Cortés MD [address] [place] [address] PCP - General 06/26/24
--- OUTSIDE RECORDS SUMMARY | 2025-03-02 12:00 | XMS_ITS ---
Author Organization [facility] Address [address] [place] [address] Care Team Providers Care Cardiology Rn Name Role Phone Milana NATARAJAN, Allen Primary Care Provider Desire Arias Unavailable [phone] Allergies No Known Allergies REASON FOR VISIT [...] 04/06/2024 Encounters Encounter Location Date Provider Diagnosis [facility] [address] [place] [address] 04/06/2024 Desire Ashford Type 2 diabetes mellitus [...] Pt defers any other forms of tx (77452) Keratoma Treatment Parring or Cutting o f Benign Hyperkeratotic Lesion(s) 15292 ( >4 Lesions) - The Benign hyperkeratotic [...] Naty CERVANTES LDOB: [birth year] (78 yo F)Acc No.[id number]:04/06/2024 Progress Note Patient:Naty Cook Provider:?Desire Ashford DPM :1945???Age:78 Y???Sex:Female D ate:04/06/2024 Address:[address] [place] [address], [facility] Pcp:Allen Cortés MD Subjective: * Chief Complaints: [...] bladder 1970cataract surgery * Hospitalization/Major Diagno stic Procedure:?[facility] [place]- [place]- rehab * [...] Procedures:?Keratoma Treatment:?Parring or Cutting of Benign Hyperkeratotic Lesion(s)?33266 ( >4 Lesions) - The Benign hyperkeratotic lesions, as described above were pared, and/or cut utilizing a sterile #15 blade, tissue nippers, and/or dremel.?Wart Treatment:?Procedure?Verrucae were debrided to pin-point bleeding margins with sterile 15 surgical blade, silver nitrate chemocautery applied, recomm. immune-boosting meds such as zinc, recomm. follow up with topical chemosurgical agents, Pt defers any other forms of tx (53896).?Nail Reduction:?Nail Reduction?Trimming of dystrophic nails performed to reduce/remove overall nail length and girth, by manual and electrical means with use of a nail nipper and/or dremel, to more viable healthy nail plate or bed tissue 6-10 (G0127).? * Procedure Codes:?04300 Wart Destruction, 1-14, Modifiers: XS G0127 TRIMMING DYSTROPHIC NAILS ANY #, Modifiers: XS 78760 TRIM SKIN LESIONS, OVER 4, Modifiers: XS [...] Ashford DPM Date:? Generated for Peri gautam/Diego/Adarsh on:?03/02/2025 11:59 AM EDT History and Physical Notes * HPI [...] diameter , plantar Forefoot , RIGHT Orthopedic FOOTWEAR EVALUATION: worn, non-s upportive, shoe gear properties exacerbate patient's foot/toe deformity [...]
--- OUTSIDE RECORDS SUMMARY | 2025-03-02 12:00 | XMS_ITS | Patient Health Record ---
Author Organization [facility] Address [address] [place] [address] Care Team Providers Care Piano Refinisher Name Role Phone Milana NATARAJAN, Allen Primary Care Provider Desire Arias Unavailable [phone] Allergies No Known Allergies Reason For Referral [...] Problem Acquired hammer toe of right foot (200599450670 9105) Other hammer toe(s) (acquired), right foot (M20.41) Active confirmed Problem Acquired hammer toe of left foot (774533703104 9103) Other hammer toe(s) (acquired), left foot (M20.42) Active confirmed Problem 627061742 Hammer toe of le ft foot (M20.42) Active confirmed Problem 78612194 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.42) Active confirmed Problem 12894441 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.072) Active confirmed Vital Signs Height 5 ft 1 in in 04/06/2024 Weight 176 lbs 04/06/2024 BMI 33.25 kg/m2 04/06/2024 Encounters Encounter Location Date Provider Diagnosis [facility] [place] [address] [place] [address] 04/06/2024 Desire Ashford Type 2 diabetes mellitus with polyneuropathy E11.42 ; Other hammer toe(s) (acquired), right foot M20.41 ; Verruca pedis B07.0 ; Right foot pain M79.671 and Other hammer toe(s) (acquired), left foot M20.42 [facility] [address] 07/11/2024 Desire Ashford Assessments Encounter Date Diagnosis [...] Treatment Pending Test Test Name Order Date 14969-XSOCGQB NAIL, 6 OR MORE 01/23/2015 08052-Grysxhmg Plate 01/23/2015 84378-Qgjwijrv Plate Each Additional 01/2015 35569-VXOB SKIN LESIONS, OVER 4 01/24/20 15 Insurance Providers Payer Name Payer Address Payer Phone Subscriber Number Group Number Insured Name Patient Relationship to Insured Coverage Start Date Coverage End Date [employer] [place] Medicare Advantage [address] [facility] [address] [phone] [id number] Naty Cervantes Self - patient is the insured Medical (General) History Medical History History ICD Code Chicken pox Measles Mumps Hypertension Thyroid disorder Diabetic Arthritis Back,Hip,and Knee pain CAD (Cholesterol) Gall bladder problems Vascular phlebitis (clots) Stroke Cataracts Hearing loss Surgical History Surgery Date(Month/Year) cholecystectomy hysterectomy 1994 back surgery 1991 gall bladder 1970 cataract surgery Hospitalization History Reason Date(Month/Year) [facility] [place]- [place]- rehab
--- OUTSIDE RECORDS SUMMARY | 2025-03-02 12:00 | XMS_ITS ---
Author Organization [facility] Address [address] [place] [address] Care Team Providers Care Mortgage Coordinator Name Role Phone Milana NATARAJAN, Allen Primary Care Provider Desire Arias [phone] REASON FOR VISIT cx 07/13 appt Encounters Encounter Location Date Provider Diagnosis [address] [address] 07/11/2024 Desire Ashford Plan Of Treatment No Information Progress Notes * ORENNaty DRIVER LDOB: [birth year] (78 yo F)Acc No.[id number]:07/11/2024 Patient:?Naty Cervantes :1945???Age:78 Y???Sex:Female Address:[address] [place] [address], [address] * true * Date:? Generated for Printi ng/Falesterg/eTransmitting on:?03/02/2025 12:00 PM EDT
--- OUTSIDE RECORDS SUMMARY | 2025-03-02 12:00 | XMS_ITS ---
Author Organization [facility] Address [address] [place] [address] Care Team Providers Care Corrective Therapy Aide Teacher Name Role Phone Milana NATARAJAN, Allen Primary Care Provider Desire Arias [phone] Encounters Encounter Location Date Provider Diagnosis [address] [address] 07/13/2024 Desire Ashford Plan Of Treatment No Information Progress Notes * Naty CERVANTES LDOB: [birth year] (79 yo F)Acc No.[id number]:07/13/2024 Progress Note Patient:?Naty CERVANTES Provider:?Desire Ashford DPM :1945???Age:78 Y???Sex:Female D ate:07/13/2024 Address:[address] [place], [place] [address] Pcp:Allen Cortés MD Subjective: * Chief Complaints: [...] Ashford DPM Date:? Generated for Printi ng/Faxing/eTransmitting on:?03/02/2025 12:00 PM EDT
== END 2025-03-02 10:39 | disposition home or self-care (01) ==
LOC: HO.HOS 10:16
PROVIDERS: PCP Internal Medicine; Visit Provider Orthopaedic Surgery
DX: M17.12 Unilateral primary osteoarthritis, left knee (principal)
CPT/HCPCS: 20610; 99213

== ENCOUNTER → 2025-03-02 10:15 | Outpatient (BNVA) | payer MEDICARE, SELFPAY | PROVIDERS: PCP Internal Medicine; Visit Provider Orthopaedic Surgery | DX: M17.12 Unilateral primary osteoarthritis, left knee (principal) | CPT/HCPCS: 20610; 99212; J0665; J1100; J2003 ==

== ENCOUNTER → 2025-03-08 13:05 | Outpatient (REF) | payer MEDICARE, SELFPAY ==
--- NOTE | 2025-03-08 13:08 | CA_ITS ---
Transthoracic Echocardiogram Patient (Last, First, Middle): Naty Cervantes L Gender: Female Date of : 1945 Age: 79 Procedure Date: 03/08/2025 Procedure Type: Transthoracic Echocardiogram Location: OP Height: 152.4 cm Weight: 70.31 kg BSA: 1.67 m2 Heart Rate: 57 bpm BP: 118 / 62 mmHg Financial Accountant: TO Referring MD: Joe Robertson MD Weigh Machine Operator: Ruiz Sahu MD Symptoms: R06.09 - Other forms of dyspnea Study Quality: Adequate ECG Rhythm: Bradycardia Conclusions: - 1. Pmhn-hp-lcxgmrzg LV systolic dysfunction with LVEF of 40-45% with pseudonormal filling pattern and underlying regional wall motion abnormality consistent with ischemic cardiomyopathy 2. Calcific mitral and aortic valve changes noted with normal cardiac valvular Dopplers 3. No gross pericardial effusion Findings Procedure Information Contrast agent, definity, is being given per protocol without apparent complications. Left Ventricle Normal left ventricular cavity size. There is normal left ventricular wall thickness. The left ventricular systolic function is mild to moderately decreased. The visually estimated ejection fraction is between 40-45%. Spectral Doppler is indicative of a pseudonormal filling pattern. E/E prime ratio is between 8 and 15 consistent with indeterminate filling pressures. Wall Motion Rest Echo Findings The basal inferior, mid inferior, and basal inferoseptal segments are hypokinetic. The inferolateral wall is akinetic. All other scored wall segments showed normal motion. Right Ventricle Normal right ventricular cavity size and systolic function. Atria The left atrium is moderately dilated. Aortic Valve There is mild calcification of the aortic valve. There is no aortic valve stenosis. There is no aortic valve regurgitation. Mitral Valve There is mild anterior and posterior mitral leaflet thickening. The posterior mitral leaflet has restricted mobility. There is mild mitral annular calcification. There is trace mitral valve regurgitation. There is no mitral valve stenosis. Pulmonic Valve The pulmonic valve was not well visualized. Tricuspid Valve Likely normal tricuspid valve structure and function. Tricuspid regurgitation envelope is inadequate for calculation of right ventricular systolic pressure. Normal right atrial pressure. Great Vessels All visible segments of the aorta are normal in size. The pulmonary artery was not well visualized. There is no dilatation of the ascending aorta measuring 3.20 cm. Venous The inferior vena cava is normal in size. Pericardium/Pleural There is no evidence of pericardial effusion. Prior Study Comparison No prior study available for comparison. findings conveyed to Dr. Robertson Measurements 2D Linear Measurements IVSd: 1.05 0.6-0.9/0.6-1.0 cm LVIDd: 5.19 3.9-5.3/4.2-5.9 cm LVIDd Index: 3.11 2.4-3.2/2.2-3.1 cm/m2 LVIDs: 4.39 2.0-3.6 cm LVPWd: 0.97 0.7-1.1 cm LA Diam: 4.20 2.7-3.8/3.0-4.0 cm LAIDs Index: 2.51 1.5-2.3 cm/m2 LV Mass: 244.89 67-162/88-224 g LV Mass Index: 146.64 43-95/49-115 g/m2 LVOT Diam: 2.20 3.0+(-)1.3 cm 2D Systolic Function EF 4C: 42.30 >55% EF 2C: 40.00 >55% EF BiP: 41.10 >55% Mitral Valve MV Pk E: 0.79 MV PK A: 0.36 MV Decel Time: 142.00 E/A: 2.20 E'Lateral: 7.29 E'Medial: 3.81 E/E' Med: 20.80 E/E' Lat: 10.90 PHT: 42.00 MVA PHT: 5.24 Decel [place]: 5.57 Aortic Valve AoV Pk Ayden: 1.39 AoV Mn Ayden: 0.90 AoV VTI: 0.32 AoV Pk Grad: 8.00 Aov Mn Grad: 4.00 IMAN Cont.VTI: 2.08 LVOT LVOT Pk Ayden: 0.75 LVOT Mn Ayden: 0.53 LVOT VTI: 0.18 LVOT Pk Grad: 2.00 LVOT Mn Grad: 1.00 LVOT Diam: 2.20 LVOT Area: 3.80 Diastolic Function MV Pk E: 0.79 MV Pk A: 0.36 E/A: 2.20 E'Medial: 3.81 E/E' Med: 20.80 E' Laterial: 7.29 E/E' Lat: 10.90 Right Ventricle TAPSE (mm): 21.20 TVS' Ayden: 11.70 Tricuspid Valve RA Press: 3.00 Great Vessels Aorta Sinus of Valsalva: 3.11 2.0-3.5 cm Ao Asc: 3.20 2.1-3.4 cm Updated in Other Vendor System with Status of Final Ruiz Sahu MD electronically signed on 03/08/2025 4:32:33 PM with status of Final
--- OUTSIDE RECORDS SUMMARY | 2025-03-08 15:33 | XMS_ITS | Patient Health Record ---
Author Organization [facility] Address [address] [place] [address] Care Team Providers Care Smasher Hand Name Role Phone Milana NATARAJAN, Allen Primary Care Provider Desire Arias Unavailable [phone] Allergies No Known Allergies Reason For Referral [...] Problem Acquired hammer toe of right foot (562512842470 9105) Other hammer toe(s) (acquired), right foot (M20.41) Active confirmed Problem Acquired hammer toe of left foot (955368172256 9103) Other hammer toe(s) (acquired), left foot (M20.42) Active confirmed Problem 935372457 Hammer toe of le ft foot (M20.42) Active confirmed Problem 17368326 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.42) Active confirmed Problem 59687986 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.072) Active confirmed Vital Signs Height 5 ft 1 in in 04/06/2024 Weight 176 lbs 04/06/2024 BMI 33.25 kg/m2 04/06/2024 Encounters Encounter Location Date Provider Diagnosis [facility] [address] [place] [address] 04/06/2024 Desire Ashford Type 2 diabetes mellitus with polyneuropathy E11.42 ; Other hammer toe(s) (acquired), right foot M20.41 ; Verruca pedis B07.0 ; Right foot pain M79.671 and Other hammer toe(s) (acquired), left [facility]20.[facility] [address] 07/11/2024 Desire Ashford Assessments Encounter Date Diagnosis [...] Treatment Pending Test Test Name Order Date [id number] NAIL, 6 OR MORE 01/23/2015 68645-Aobbycuy Plate 01/23/2015 14339-Unqgmwwp Plate Each Additional 01/2015 17786-WIHZ SKIN LESIONS, OVER 4 01/24/20 15 Insurance Providers Payer Name Payer Address Payer Phone Subscriber Number Group Number Insured Name Patient Relationship to Insured Coverage Start Date Coverage End Date [employer] [place] Medicare Advantage [address] [facility] [address] [id number] Naty Cervantes Self - patient is the insured Medical (General) History Medical History History ICD Code Chicken pox Measles Mumps Hypertension Thyroid disorder Diabetic Arthritis Back,Hip,and Knee pain CAD (Cholesterol) Gall bladder problems Vascular phlebitis (clots) Stroke Cataracts Hearing loss Surgical History Surgery Date(Month/Year) cholecystectomy hysterectomy 1994 back surgery 1991 gall bladder 1970 cataract surgery Hospitalization History Reason Date(Month/Year) [facility] [place]- rehab
--- OUTSIDE RECORDS SUMMARY | 2025-03-08 15:33 | XMS_ITS ---
Author Organization [facility] Address [address] [place] [address] Care Team Providers Care Track Fitter Name Role Phone Milana NATARAJAN, Allen Primary Care Provider Desire Arias [phone] Encounters Encounter Location Date Provider Diagnosis [address] [address] 07/13/2024 Desire Ashford Plan Of Treatment No Information Progress Notes * Naty CERVANTES LDOB: [birth year] (79 yo F)Acc No.[id number]:07/13/2024 Progress Note Patient:?Naty CERVANTES Provider:?Desire Ashford DPM :1945???Age:78 Y???Sex:Female D ate:07/13/2024 Address:[address] [place], [place] [id number] Pcp:Allen Cortés MD Subjective: * Chief Complaints: [...] Ashford DPM Date:? Generated for Printi ng/Faxing/eTransmitting on:?03/08/2025 03:33 PM EDT
--- OUTSIDE RECORDS SUMMARY | 2025-03-08 15:33 | XMS_ITS ---
[facility] Address [address] [place] [address] Care Team Providers Care Tire Service Supervisor Name Role Phone Milana NATARAJAN, Allen Primary Care Provider Desire Arias Unavailable [phone] Allergies No Known Allergies REASON FOR VISIT [...] 04/06/2024 Encounters Encounter Location Date Provider Diagnosis [facility] [address] [place] [address] 04/06/2024 Desire Ashford Type 2 diabetes mellitus [...] Pt defers any other forms of tx (16563) Keratoma Treatment Parring or Cutting o f Benign Hyperkeratotic Lesion(s) 03702 ( >4 Lesions) - The Benign hyperkeratotic [...] Naty CERVANTES LDOB: [birth year] (78 yo F)Acc No.[id number]:04/06/2024 Progress Note Patient:Naty Cook Provider:?Desire Ashford DPM :1945???Age:78 Y???Sex:Female D ate:04/06/2024 Address:[address] [place] [address], [id number] Pcp:Allen Cortés MD Subjective: * Chief Complaints: [...] bladder 1970cataract surgery * Hospitalization/Major Diagno stic Procedure:?[facility] [place]- [place]hab * Family History:?Mother: dece ased, [...] Procedures:?Keratoma Treatment:?Parring or Cutting of Benign Hyperkeratotic Lesion(s)?17258 ( >4 Lesions) - The Benign hyperkeratotic lesions, as described above were pared, and/or cut utilizing a sterile #15 blade, tissue nippers, and/or dremel.?Wart Treatment:?Procedure?Verrucae were debrided to pin-point bleeding margins with sterile 15 surgical blade, silver nitrate chemocautery applied, recomm. immune-boosting meds such as zinc, recomm. follow up with topical chemosurgical agents, Pt defers any other forms of tx (11940).?Nail Reduction:?Nail Reduction?Trimming of dystrophic nails performed to reduce/remove overall nail length and girth, by manual and electrical means with use of a nail nipper and/or dremel, to more viable healthy nail plate or bed tissue 6-10 (G0127).? * Procedure Codes:?08033 Wart Destruction, 1-14, Modifiers: XS G0127 TRIMMING DYSTROPHIC NAILS ANY #, Modifiers: XS 80589 TRIM SKIN LESIONS, OVER 4, Modifiers: XS [...] Ashford DPM Date:? Generated for Peri gautam/Diego/Adarsh on:?03/08/2025 03:33 PM EDT History and Physical Notes * [...]
--- OUTSIDE RECORDS SUMMARY | 2025-03-08 15:33 | XMS_ITS ---
Author Organization [facility] Address [address] [place] [address] Care Team Providers Care Liner Reroll Tender Name Role Phone Milana NATARAJAN, Allen Primary Care Provider Desire Arias [phone] REASON FOR VISIT cx 07/13 appt Encounters Encounter Location Date Provider Diagnosis [address] [address] 07/11/2024 Desire Ashford Plan Of Treatment No Information Progress Notes * ORENNaty DRIVER LDOB: [birth year] (78 yo F)Acc No.[id number]:07/11/2024 Patient:?Naty Cervantes :1945???Age:78 Y???Sex:Female Address:[address] [place] [address], [address] * true * Date:? Generated for Printi ng/Falesterg/eTransmitting on:?03/08/2025 03:33 PM EDT
--- OUTSIDE RECORDS SUMMARY | 2025-03-08 15:33 | XMS_ITS | Clinical Summary ---
Author Organization [facility] Address [address] [place] [address] Care Team Providers Care Utilization Coordinator Name Role Phone Allen Cortés MD Primary Care Provider [phone] Allergies No known active allergies Medications ezetimibe (ZeTIA) 10 MG tablet Take 1 [...] a day. Active atorvastatin (LIPITOR) 80 MG tabletIndication s:Acute ischemic right MCA stroke (HCC) Take 1 tablet (80 mg total) by mouth daily. 30 tablet 4 Active aspirin 81 MG chewable tabletIndication s:Acute ischemic right MCA stroke (HCC) Chew 1 tablet (81 mg total) daily. 90 tablet 4 Active apixaban (ELIQUIS) 5 MG tabletIndication s:Atrial fibrillation, unspecified type (HCC) Take 1 tablet (5 mg total) by mouth 2 (two) times a day. Active Active Problems Problem Noted Date Diagnosed Date Acute ischemic right MCA stroke 06/26/2024 Social History Tobacco Use Types Packs/Day Years Used Date Smoking Tobacco: Never Assessed [facility] Utilities Answer Date Recorded In the past [...] place to sleep or slept in a custodial (including now)? No 06/27/2024 Comments Unknown Sex and Gender Information Value Date Recorded Sex Assigned at Female 06/26/2024 7:55 PM EDT Legal Sex Female 4:06 PM EDT Gender Identity Female 06/26/2024 7:55 [...] 65 - 99 mg/dL 06/29/2024 12:04 PM [facility] Comment:Fasting: <100 mg/dL, Non-Fasting: <200 [...] 10:27 AM EDT 06/29/2024 11:25 AM EDT us Byron Victoria MD LAB BLOOD ORDERABLES Final Resu lt Performing Organization Address City/[facility]/[place] [address], [place] [address] * (ABNORMAL) Hemoglobin A1c with Estimated Average Glucose (06/27/2024 8:21 AM EDT) Hemoglobin A1C 7.0(H) <5.7 % 06/27/2024 9:07 AM EDT [facility] Comment: A1c% ? Interpretation 5.7 - 6.0 ?Increase risk of diabetes 6.1 - 6.4 ?Higher risk of diabetes > or = 6.5 ?? Consistent with diabetes Diabetes Care, 33(Supp 1):S1-S61, 2009 Estimated Average Glucose 154 mg/dL 06/27/2024 9:07 AM [facility] Blood Blood specimen / Unknown 06/27/2024 8:21 AM EDT 06/27/2024 8:32 AM EDT Paul Ospina MD LAB BLOOD ORDERABLES Final Result Performing Organization Address City/[facility]/[place] [address], [place] [address] * (ABNORMAL) Lipid Panel (06/27/2024 8:21 AM EDT) Cholesterol, Total 141 <200 mg/dL 2023 9:18 AM [facility] Triglycerides 169(H) <150 mg/dL 06/27/2024 [...] - 5.0 Ratio 06/27/2024 9:18 AM EDT [facility] Comment: Relative Risk ? Ratio - Male ? Ratio - Female ?0.5 ?3.4 ?3.3 ?1.0 ?5.0 ?4.4 ?2.0 ?9.6 ?7.1 ?3.0 ? 23.4 ? 11.0 Blood (Plasma/Serum) 06/27/2024 8:21 AM EDT 06/27/2024 8:32 AM EDT Paul Ospina MD LAB BLOOD ORDERABLES Final Result Performing Organization Address [facility]/State/[facility] Co de Phone Number [facility] [address] [place] [address], [place] [address] from Last 3 Months or Most Recently Relevant to Health Maintenance Insurance MEDICARE PART A & B [facility] MEDICARE Advance Directives * DNR (Latest Code Status on File) Date Activated Date Inactivated Comments 06/27/2024 4:12 PM Question Answer Comments Decision thoroughly discussed with: Gail ent arrived with valid [place] DNR Transfer form * Full Code Date Activated Date Inactivated Comments 06/26/2024 8:41 PM 06/27/2024 4:12 PM Care Teams Utilization Coordinator Relationship Specialty Start Date End Date Allen Cortés MD [address] [place] [address] PCP - General 06/26/24
== END ==
LOC: HO.CARD 13:05
PROVIDERS: PCP Internal Medicine; Visit Provider Internal Medicine Pulmonary Disease
DX: R06.09 Other forms of dyspnea (principal)
CPT/HCPCS: 93306; Q9957

== ENCOUNTER → 2025-03-08 13:08 | Outpatient (BNV) | payer MEDICARE, SELFPAY | PROVIDERS: PCP Internal Medicine; Visit Provider Internal Medicine Cardiovascular Disease | DX: R06.09 Other forms of dyspnea (principal) | CPT/HCPCS: 93306 ==

== ENCOUNTER 2025-03-25 10:07 | Outpatient (REF) | payer MEDICARE, SELFPAY ==
--- OUTSIDE RECORDS SUMMARY | 2025-03-25 10:10 | XMS_ITS | Clinical Summary ---
Author Organization [facility] Address [address] [place] [address] Care Team Providers Care Retail Cashier Name Role Phone Allen Cortés MD Primary Care Provider [phone] Allergies No known active allergies Medications ezetimibe [...] Years Used Date Smoking Tobacco: Never Assessed [facility] Utilities Answer Date Recorded In the [...] a nursing home (including now)? No 06/27/2024 Comments Unknown Sex [...] 65 - 99 mg/dL 06/29/2024 12:04 PM [facility] Comment:Fasting: <100 mg/dL, Non-Fasting: <200 mg/dL (ADA 2004) Blood Urea Nitrogen (BUN) 12 8 - 21 mg/dL 06/29/2024 12:04 PM [facility] Creatinine 0.8 0.4 - 1.1 mg/dL 06/29/2024 12:04 PM [facility] eGFR 75 >59 06/29/2024 12:04 PM [facility] Comment:CKD-EPI (2020) in mL /min/1.73 sq meters. Sodium 140 136 - 145 mmol/L 06/29/2024 12:04 PM [facility] Potassium 4.3 3.4 - 5.3 mmol/L 06/29/2024 12:04 PM [facility] Chloride 104 98 - 107 mmol/L 06/29/2024 12:04 PM [facility] CO2 23 22 - 33 mmol/L 06/29/2024 12:04 PM [facility] Anion Gap 13 7 - 17 06/29/2024 12:04 PM [facility] Calcium 8.9 8.7 - 10.5 mg/dL 06/29/2024 12:04 PM [facility] BUN/Creatinine Ratio 15 10.0 - 25.0 Ratio 06/29/2024 12:04 PM [facility] Blood (Plasma/Serum) 06/29/2024 10:27 AM EDT 06/29/2024 11:25 AM EDT us Byron Victoria MD LAB BLOOD ORDERABLES Final Resu lt Performing Organization Address City/[facility]/[place] [address], [place] [address] * (ABNORMAL) Hemoglobin A1c with Estimated Average Glucose (06/27/2024 8:21 AM EDT) Hemoglobin A1C 7.0(H) <5.7 % 06/27/2024 9:07 AM EDT [facility] Comment: A1c% ? Interpretation 5.7 - 6.0 ?Increase risk of diabetes 6.1 - 6.4 ?Higher risk of diabetes > or = 6.5 ?? Consistent with diabetes Diabetes Care, 33(Supp 1):S1-S61, 2009 Estimated Average Glucose 154 mg/dL 06/27/2024 9:07 AM [facility] Blood Blood specimen / Unknown 06/27/2024 8:21 AM EDT 06/27/2024 8:32 AM EDT Paul Ospina MD LAB BLOOD ORDERABLES Final Result Performing Organization Address City/[facility]/[place] [address], [place] [address] * (ABNORMAL) Lipid Panel (06/27/2024 8:21 AM EDT) Cholesterol, Total 141 <200 mg/dL 2023 9:18 AM [facility] Triglycerides 169(H) <150 mg/dL 06/27/2024 9:18 AM [facility] Cholesterol, HDL 58 >39 mg/dL 06/27/20 9:18 AM [facility] Estimated LDL 49 <130 mg/dL 06/27/2024 9:18 AM [facility] Comment: NCEP Guidelines: ?< 100 mg/dL [...] BLOOD ORDERABLES Final Result Performing Organization Address [facility]/State/[facility] Co de Phone Number [facility] [address] [place] [address], [place] [address] from Last 3 Months or Most Recently Relevant to Health Maintenance Insurance MEDICARE PART A & B [facility] MEDICARE Advance Directives * DNR (Latest Code Status on File) Date Activated Date Inactivated Comments 06/27/2024 4:12 PM Question Answer Comments Decision thoroughly discussed with: Gail ent arrived with valid [place] DNR Transfer form * Full Code Date Activated Date Inactivated Comments 06/26/2024 8:41 PM 06/27/2024 4:12 PM Care Teams Retail Cashier Relationship Specialty Start Date End Date Allen Cortés MD [address] [place] [address] PCP - General 06/26/24
--- OUTSIDE RECORDS SUMMARY | 2025-03-25 10:11 | XMS_ITS ---
Author Organization [facility] Address [address] [place] [address] Care Team Providers Care Claims Collector Name Role Phone Milana NATARAJAN, Allen Primary Care Provider Desire Arias Unavailable [phone] Allergies No Known Allergies REASON FOR VISIT [...] 04/06/2024 Encounters Encounter Location Date Provider Diagnosis [facility] [address] [place] [address] 04/06/2024 Desire Ashford Type 2 diabetes mellitus [...] Pt defers any other forms of tx (77705) Keratoma Treatment Parring or Cutting o f Benign Hyperkeratotic Lesion(s) 63049 ( >4 Lesions) - The Benign hyperkeratotic [...] Naty CERVANTES LDOB: [birth year] (78 yo F)Acc No.[id number]:04/06/2024 Progress Note Patient:Naty Cook Provider:?Desire Ashford DPM :1945???Age:78 Y???Sex:Female D ate:04/06/2024 Address:[address] [place] [address], [facility] Pcp:Allen Cortés MD Subjective: * Chief Complaints: [...] bladder 1970cataract surgery * Hospitalization/Major Diagno stic [place] [place] * Family History:?Mother: dece ased, [...] Procedures:?Keratoma Treatment:?Parring or Cutting of Benign Hyperkeratotic Lesion(s)?70966 ( >4 Lesions) - The Benign hyperkeratotic lesions, as described above were pared, and/or cut utilizing a sterile #15 blade, tissue nippers, and/or dremel.?Wart Treatment:?Procedure?Verrucae were debrided to pin-point bleeding margins with sterile 15 surgical blade, silver nitrate chemocautery applied, recomm. immune-boosting meds such as zinc, recomm. follow up with topical chemosurgical agents, Pt defers any other forms of tx (23744).?Nail Reduction:?Nail Reduction?Trimming of dystrophic nails performed to reduce/remove overall nail length and girth, by manual and electrical means with use of a nail nipper and/or dremel, to more viable healthy nail plate or bed tissue 6-10 (G0127).? * Procedure Codes:?13570 Wart Destruction, 1-14, Modifiers: XS G0127 TRIMMING DYSTROPHIC NAILS ANY #, Modifiers: XS 80546 TRIM SKIN LESIONS, OVER 4, Modifiers: XS [...] Ashford DPM Date:? Generated for Peri gautam/Diego/Adarsh on:?03/25/2025 10:11 AM EDT History and Physical Notes * [...]
--- OUTSIDE RECORDS SUMMARY | 2025-03-25 10:11 | XMS_ITS ---
Author Organization [facility] Address [address] [place] [address] Care Team Providers Care Business Management Associate Name Role Phone Milana NATARAJAN, Allen Primary Care Provider Desire Arias [phone] Encounters Encounter Location Date Provider Diagnosis [address] [address] 07/13/2024 Desire Ashford Plan Of Treatment No Information Progress Notes * Naty CERVANTES LDOB: [birth year] (79 yo F)Acc No.[id number]:07/13/2024 Progress Note Patient:?Naty CERVANTES Provider:?Desire Ashford DPM :1945???Age:78 Y???Sex:Female D ate:07/13/2024 Address:[address] [place], [place] [id number] Pcp:Allen Cortés MD Subjective: * Chief Complaints: [...] Ashford DPM Date:? Generated for Printi ng/Falesterg/eTransmitting on:?03/25/2025 10:11 AM EDT
--- OUTSIDE RECORDS SUMMARY | 2025-03-25 10:11 | XMS_ITS | Patient Health Record ---
Author Organization [facility] Address [address] [place] [address] Care Team Providers Care Field Consultant Name Role Phone Milana NATARAJAN, Allen Primary Care Provider Desire Arias Unavailable [phone] Allergies No Known Allergies Reason For Referral [...] Problem Acquired hammer toe of right foot (451000589463 9105) Other hammer toe(s) (acquired), right foot (M20.41) Active confirmed Problem Acquired hammer toe of left foot (232803839483 9103) Other hammer toe(s) (acquired), left foot (M20.42) Active confirmed Problem 622492490 Hammer toe of le ft foot (M20.42) Active confirmed Problem 17684389 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.42) Active confirmed Problem 94156924 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.072) Active confirmed Vital Signs Height 5 ft 1 in in 04/06/2024 Weight 176 lbs 04/06/2024 BMI 33.25 kg/m2 04/06/2024 Encounters Encounter Location Date Provider Diagnosis [facility] [address] [place] [address] 04/06/2024 Desire Ashford Type 2 diabetes mellitus with polyneuropathy E11.42 ; Other hammer toe(s) (acquired), right foot M20.41 ; Verruca pedis B07.0 ; Right foot pain M79.671 and Other hammer toe(s) (acquired), left foot M20.42 [facility] [address] 07/11/2024 Desire Ashford Assessments Encounter Date Diagnosis [...] Treatment Pending Test Test Name Order Date [id number]-[id number] NAIL, 6 OR MORE 01/23/2015 58959-Nwosffms Plate 01/23/2015 55750-Amiadofc Plate Each Additional 01/2015 88307-RUNP SKIN LESIONS, OVER 4 01/24/20 15 Insurance Providers Payer Name Payer Address Payer Phone Subscriber Number Group Number Insured Name Patient Relationship to Insured Coverage Start Date Coverage End Date [employer] [place] Medicare Advantage [address] [facility] [id number] Naty Cervantes Self - patient is the insured Medical (General) History Medical History History ICD Code Chicken pox Measles Mumps Hypertension Thyroid disorder Diabetic Arthritis Back,Hip,and Knee pain CAD (Cholesterol) Gall bladder problems Vascular phlebitis (clots) Stroke Cataracts Hearing loss Surgical History Surgery Date(Month/Year) cholecystectomy hysterectomy 1994 back surgery 1991 gall bladder 1970 cataract surgery Hospitalization History Reason Date(Month/Year[place] [facility] [place]
--- OUTSIDE RECORDS SUMMARY | 2025-03-25 10:11 | XMS_ITS ---
Author Organization [facility] Address [address] [place] [address] Care Team Providers Care Graphics Production Specialist Name Role Phone Milana NATARAJAN, Allen Primary Care Provider Desire Arias [phone] REASON FOR VISIT cx 07/13 appt Encounters Encounter Location Date Provider Diagnosis [address] [address] 07/11/2024 Desire Ashford Plan Of Treatment No Information Progress Notes * ORENNaty DRIVER LDOB: [birth year] (78 yo F)Acc No.[id number]:07/11/2024 Patient:?Naty Cervantes :1945???Age:78 Y???Sex:Female Address:[address] [place] [address], [address] * true * Date:? Generated for Printi ng/Falesterg/eTransmitting on:?03/25/2025 10:11 AM EDT
[2025-03-25 10:53] LABS: Hematocrit 31.4 % (37.0-47.0); Hemoglobin 9.4 g/dl (12.0-16.0); Mean Corpuscular HGB Conc 29.9 g/dl (31.0-35.0); Mean Corpuscular Hemoglobin 24.7 pg (27.0-33.0); Mean Corpuscular Volume 82.4 fL (80.0-98.0); Mean Platelet Volume 11.6 fL (9.4-12.3); Platelet Count 287 X10*3/uL (160-400); Red Blood Count 3.81 X10*6/uL (4.20-5.50); Red Cell Distribution Width 15.1 % (11.0-16.0); White Blood Count 6.8 X10*3/uL (4.8-10.8)
[2025-03-25 11:06] LABS: Appearance Urine Clear; Color Urine Yellow; Glucose Urine UA Negative (Negative); Leukocyte Esterase Urine Large (3+) (Negative); Nitrite Urine Negative (Negative); PH 6.5 (5.0-9.0); Specific Gravity - Urine 1.015 (1.005-1.025); UMIC TRIGGER UA YES; Urine Blood Negative (Negative); Urine Ketones Negative (Negative); Urine Protein Negative (Neg-Trace)
[2025-03-25 11:09] LABS: Estimated Average Glucose 117 mg/dL; Hemoglobin A1C 100.7444 umol/L; Hemoglobin A1c % 5.7 % (<6.0); Total Hemoglobin (HGBA1C) 2573.5173 umol/L
[2025-03-25 11:11] LABS: Bacteria Urine None Seen (None Seen); Hyaline Casts Urine 0-2 /LPF (0-2); RBC Urine 0-2 /HPF (0-2)
[2025-03-25 11:30] LABS: Alanine Aminotransferase 27 U/L (0-31); Albumin Level 3.8 g/dL (3.5-5.0); Anion Gap 13 (12-20); Aspartate Amino Transferase 36 U/L (5-31); Bilirubin Direct 0.2 mg/dL (0.0-0.5); Bilirubin Total 0.5 mg/dL (0.0-1.0); Blood Urea Nitrogen 18 mg/dL (9-16); Calcium 10.1 mg/dL (8.4-10.2); Carbon Dioxide 31 mmol/L (22-29); Chloride 104 mmol/L (96-108); Cholesterol 110 mg/dL (<200); Estimated Glomerular Filt Rate > 60; Glucose Random 101 mg/dL (60-115); HDL Cholesterol 44 mg/dL (>40); LDL Cholesterol Calculated 46 mg/dL (<100); Potassium 4.2 mmol/L (3.3-5.1); Sodium 144 mmol/L (135-145); Total Protein 6.7 g/dL (6.5-8.0); Triglycerides 100 mg/dL (<150)
[2025-03-25 11:38] LABS: Creatinine Urine 86.49 mg/dL; Microalbum/Creatinine Ratio Ur 21.9 ug/mg cr (<30)
[2025-03-25 12:01] LABS: Thyroid Stimulating Hormone 0.03 uIU/mL (0.32-4.0)
[2025-03-25 12:06] LABS: Magnesium 1.3 mg/dL (1.6-2.6)
[2025-03-25 13:11] LABS: Alkaline Phosphatase 128 U/L (39-117)
== END 2025-03-25 10:08 | disposition home or self-care (01) ==
LOC: HO.LAB 10:07
PROVIDERS: PCP Internal Medicine; Visit Provider Internal Medicine
DX: I10 Essential (primary) hypertension (principal); I48.0 Paroxysmal atrial fibrillation; E11.9 Type 2 diabetes mellitus without complications
CPT/HCPCS: 36415; 80048; 80061; 80076; 81001; 81003; 82043; 82570; 83036; 83735; 84443; 85027

== ENCOUNTER 2025-04-02 14:58 | Inpatient (IN) | payer MEDICARE, SELFPAY ==
[2025-04-02] VITALS (7 sets, daily range): BP systolic 90–158; BP diastolic 37–57; PULSE 64–71; RESP 12–16; TEMP 36.3–36.8; O2SAT 86–100; BMI 27.5
--- NOTE | ~2025-04-02 | CT_ITS ---
CLINICAL HISTORY: weakness, headache CT head without contrast. COMPARISON: CT head dated 12/15/24 at 13:36 EST FINDINGS: The visualized paranasal sinuses are clear. The mastoid air cells are clear. No calvarial fracture. Atherosclerotic intracranial vasculature. No evidence for mass or mass effect. No intracranial hemorrhage or abnormal extra-axial fluid collection. Encephalomalacia and gliosis within the posterior right frontoparietal region consistent with a old infarct and stable from prior imaging. The ventricles are proportional with the degree of moderate global cerebral volume loss without evidence of hydrocephalus. Basilar cisterns are patent. There are periventricular areas of low attenuation compatible with [id number] white matter small vessel disease. Posterior fossa appears unremarkable. IMPRESSION: 1. No acute intracranial findings. This document has been electronically signed by: Danilo Bennett MD on 04/02/2025 16:40:40
--- NOTE | ~2025-04-02 | CT_ITS ---
CLINICAL HISTORY: dizziness CT angiography head and neck with contrast. 3D Postprocessing. Comparison: CT/SR - CT HEAD/BRAIN WO IV CON - 04/02/25 15:35 EDT Findings: Aortic arch and cervical great vessels are patent with no aneurysm, dissection, hemodynamically significant stenoses, or occlusion. Intracranial arteries are patent. No aneurysm, dissection, hemodynamically significant stenoses, or occlusion. 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 Hypoplastic left DANA A1 segment, normal variant. No abnormal intracranial enhancement. The visualized thyroid gland is unremarkable. No cervical mass or fluid collection. Lung apices clear. No acute fracture. IMPRESSION: Patent head and neck CTA. Small caliber bilateral vertebral arteries and proximal basilar artery with persistent right trigeminal artery, normal variant. Hypoplastic left DANA A1 segment, normal variant. This document has been electronically signed by: Johny Soto MD on 04/02/2025 22:48:43
--- NOTE | ~2025-04-02 | CT_ITS ---
CLINICAL HISTORY: lower abdominal pain CT abdomen and pelvis without IV contrast. COMPARISON: CT abdomen and pelvis dated 11/27/24 at 18:14 EST FINDINGS: Small hiatal hernia. Gallbladder is not definitively identified and may be absent. Moderate intrahepatic and extrahepatic biliary ductal dilatation. No radiopaque choledocholithiasis. Spleen and pancreas are unremarkable. Mild diffuse adrenal gland thickening, nonspecific. Indeterminate hyperattenuating lesion measuring 0.9 cm of the superior pole of the right kidney with Hounsfield units of 42. No right-sided hydronephrosis or hydroureter. No right renal or ureteral calculus. No left-sided hydronephrosis or hydroureter. No left renal or ureteral calculus. Several pelvic phleboliths present along the course of the distal ureters bilaterally. Appendix is not definitively identified. Mild colonic stool burden. No bowel obstruction. Distal colonic diverticulosis without evidence of diverticulitis. No mesenteric or retroperitoneal lymphadenopathy. Moderate aortoiliac atherosclerotic vascular calcifications. Urinary bladder is unremarkable given degree of distention. No adnexal mass. Moderate to advanced multilevel spondylosis. No acute fracture. Small fat containing ventral abdominal/pelvic wall hernia with fascial defect measuring 2.5 x 1.9 cm. No evidence of bowel involvement. IMPRESSION: 1. Ventral abdominal /pelvis wall fat containing hernia with fascial defect measuring 2.5 x 1.9 cm. No bowel involvement. 2. Colonic diverticulosis without evidence of diverticulitis. 3. Moderate intrahepatic and extrahepatic biliary ductal dilatation, stable from prior imaging. This is most likely a chronic finding. No pancreatic head mass or choledocholithiasis identified. 4. Indeterminate 0.9 cm lesion of the superior pole of the right kidney. This may represent a proteinaceous cyst. Renal protocol CT, MR or ultrasound may be helpful for further characterization This document has been electronically signed by: Danilo Bennett MD on 04/02/2025 17:04:22
--- NOTE | ~2025-04-02 | MR_ITS ---
EXAMINATION: MR BRAIN WITHOUT CONTRAST CLINICAL INFORMATION: Persistent dizziness, rule out CVA. COMPARISON: 12/11/[address] angiogram head and neck 04/02/2025. TECHNIQUE: MRI of the brain was obtained using routine sequences without contrast. Exam performed on a high-field 1.5 Marie Siemens magnet. FINDINGS: There is no diffusion restriction. There is no intracranial hemorrhage, acute infarction, mass effect, or edema. Ventricles, sulci, and cisterns are diffusely somewhat more prominent than would be expected for patient age. No shift of midline. No abnormal hemosiderin deposition is identified. There is a old infarct of the right inferior MCA division. This involves the right posterior temporal operculum, right frontal operculum, and right parietal white matter. There are a scattered punctate and mildly confluent foci of white matter T2 hyperintensity in the periventricular, subcortical, and hemispheric deep white matter. These are nonspecific but most likely relate to small vessel ischemic changes given the appearance and distribution. Midline structures appear normally formed. There is diffuse thinning of the corpus callosum. Partial empty sella present. Posterior fossa structures appear normal. Cerebellar tonsils are appropriately located. Major flow voids are preserved within the skull base. The globes and orbital contents demonstrate no abnormalities. There are bilateral lens replacements. Paranasal sinuses are clear bilaterally. The mastoids and tympanic cavities are normally aerated. Extracranial soft tissues demonstrate no abnormalities. No suspicious bone marrow changes are evident. Atlantoaxial joint demonstrates moderate degenerative arthritis. MR/MR head/brain wo con IMPRESSION: 1. No intracranial hemorrhage, mass effect, edema, or acute infarction. 2. 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 Somewhat age advanced cerebral and cerebellar involutional changes. 4. Moderate changes of small vessel ischemia. Electronically signed by: Jordy Bryan MD 04/03/2025 04:41 PM EDT
--- NOTE | 2025-04-02 15:17 | ECG_ITS ---
Test Reason : WEAKNESS Blood Pressure : */* mmHG Vent. Rate : 69 BPM Atrial Rate : * BPM P-R Int : * ms QRS Dur : 84 ms QT Int : 408 ms P-R-T Axes : * -24 86 degrees QTcB Int : 437 ms Normal sinus rhythm Nonspecific ST and T wave abnormality Abnormal ECG When compared with ECG of 15-Dec-2024 13:55, Questionable change in QRS axis ST now depressed in Inferior leads Referred By: Morris Aguirre Electronically Signed By: SISI SOSA MD
--- OUTSIDE RECORDS SUMMARY | 2025-04-02 15:29 | XMS_ITS ---
Author Organization [facility] Address [address] [place] [address] Care Team Providers Care Cad Designer Name Role Phone Milana NATARAJAN, Allen Primary Care Provider Desire Arias [phone] REASON FOR VISIT cx 07/13 appt Encounters Encounter Location Date Provider Diagnosis [address] [address] 07/11/2024 Desire Ashford Plan Of Treatment No Information Progress Notes * ORENNaty DRIVER LDOB: [birth year] (78 yo F)Acc No.[id number]:07/11/2024 Patient:?Naty Cervantes :1945???Age:78 Y???Sex:Female Address:[address] [place] [address], [address] * true * Date:? Generated for Printi ng/Falesterg/eTransmitting on:?04/02/2025 03:29 PM EDT
--- OUTSIDE RECORDS SUMMARY | 2025-04-02 15:29 | XMS_ITS | Patient Health Record ---
Author Organization [facility] Address [address] [place] [address] Care Team Providers Care Factory Helper Name Role Phone Milana NATARAJAN, Allen Primary Care Provider Desire Arias Unavailable [phone] Allergies No Known Allergies Reason For Referral [...] Problem Acquired hammer toe of right foot (453157877236 9105) Other hammer toe(s) (acquired), right foot (M20.41) Active confirmed Problem Acquired hammer toe of left foot (877355751777 9103) Other hammer toe(s) (acquired), left foot (M20.42) Active confirmed Problem 888115153 Hammer toe of le ft foot (M20.42) Active confirmed Problem 18125845 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.42) Active confirmed Problem 30301050 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.072) Active confirmed Vital Signs Height 5 ft 1 in in 04/06/2024 Weight 176 lbs 04/06/2024 BMI 33.25 kg/m2 04/06/2024 Encounters Encounter Location Date Provider Diagnosis [facility] [address] [place] [address] 04/06/2024 Desire Ashford Type 2 diabetes mellitus with polyneuropathy E11.42 ; Other hammer toe(s) (acquired), right foot M20.41 ; Verruca pedis B07.0 ; Right foot pain M79.671 and Other hammer toe(s) (acquired), left foot [facility]20.[facility] [address] 07/11/2024 Desire Ashford Assessments Encounter Date Diagnosis [...] Treatment Pending Test Test Name Order Date 36141-ENTUAIA NAIL, 6 OR MORE 01/23/2015 78763-Hecaihdb Plate 01/23/2015 55643-Bagdfkjw Plate Each Additional 01/2015 66724-BRLA SKIN LESIONS, OVER 4 01/24/20 15 Insurance Providers Payer Name Payer Address Payer Phone Subscriber Number Group Number Insured Name Patient Relationship to Insured Coverage Start Date Coverage End Date [employer] [place] [employer] Advantage [address] [facility] [id number] Naty Cervantes Self - patient is the insured Medical (General) History Medical History History ICD Code Chicken pox Measles Mumps Hypertension Thyroid disorder Diabetic Arthritis Back,Hip,and Knee pain CAD (Cholesterol) Gall bladder problems Vascular phlebitis (clots) Stroke Cataracts Hearing loss Surgical History Surgery Date(Month/Year) cholecystectomy hysterectomy 1994 back surgery 1991 gall bladder 1970 cataract surgery Hospitalization History Reason Date(Month/Year) [facility]- Stroke- rehab
--- OUTSIDE RECORDS SUMMARY | 2025-04-02 15:29 | XMS_ITS ---
Author [facility] Address [address] [place] [address] Care Team Providers Care Weatherstrip Machine Operator Name Role Phone Milana NATARAJAN, Allen Primary Care Provider Desire Arias Unavailable [phone] Allergies No Known Allergies REASON FOR VISIT [...] 04/06/2024 Encounters Encounter Location Date Provider Diagnosis [facility] [address] [place] [address] 04/06/2024 Desire Ashford Type 2 diabetes mellitus [...] Pt defers any other forms of tx (61135) Keratoma Treatment Parring or Cutting o f Benign Hyperkeratotic Lesion(s) 89987 ( >4 Lesions) - The Benign hyperkeratotic [...] Naty CERVANTES LDOB: [birth year] (78 yo F)Acc No.[id number]:04/06/2024 Progress Note Patient:Naty Cook Provider:?Desire Ashford DPM :1945???Age:78 Y???Sex:Female D ate:04/06/2024 Address:[address] [place] [address], [id number] Pcp:Allen Cortés MD Subjective: * Chief Complaints: [...] bladder 1970cataract surgery * Hospitalization/Major Diagno stic Procedure:?[facility] [place]- Stroke- rehab * Family History:?Mother: dece ased, [...] Procedures:?Keratoma Treatment:?Parring or Cutting of Benign Hyperkeratotic Lesion(s)?12091 ( >4 Lesions) - The Benign hyperkeratotic lesions, as described above were pared, and/or cut utilizing a sterile #15 blade, tissue nippers, and/or dremel.?Wart Treatment:?Procedure?Verrucae were debrided to pin-point bleeding margins with sterile 15 surgical blade, silver nitrate chemocautery applied, recomm. immune-boosting meds such as zinc, recomm. follow up with topical chemosurgical agents, Pt defers any other forms of tx (74191).?Nail Reduction:?Nail Reduction?Trimming of dystrophic nails performed to reduce/remove overall nail length and girth, by manual and electrical means with use of a nail nipper and/or dremel, to more viable healthy nail plate or bed tissue 6-10 (G0127).? * Procedure Codes:?85535 Wart Destruction, 1-14, Modifiers: XS G0127 TRIMMING DYSTROPHIC NAILS ANY #, Modifiers: XS 78321 TRIM SKIN LESIONS, OVER 4, Modifiers: XS [...] Ashford DPM Date:? Generated for Peri gautam/Diego/Adarsh on:?04/02/2025 03:29 PM EDT History and Physical Notes * [...]
--- OUTSIDE RECORDS SUMMARY | 2025-04-02 15:30 | XMS_ITS ---
Author Organization [facility] Address [address] [place] [address] Care Team Providers Care Head Of Transport Logistics Name Role Phone Milana NATARAJAN, Allen Primary Care Provider Desire Arias [phone] Encounters Encounter Location Date Provider Diagnosis [address] [address] 07/13/2024 Desire Ashford Plan Of Treatment No Information Progress Notes * Naty CERVANTES LDOB: [birth year] (79 yo F)Acc No.[id number]:07/13/2024 Progress Note Patient:?Naty CERVANTES Provider:?Desire Ashford DPM :1945???Age:78 Y???Sex:Female D ate:07/13/2024 Address:[address] [place], [place] [id number] Pcp:Allen Cortés MD Subjective: * Chief Complaints: [...] Ashford DPM Date:? Generated for Printi ng/Faxing/eTransmitting on:?04/02/2025 03:29 PM EDT
--- NOTE | 2025-04-02 16:11 | ED_ITS ---
HPI - General Adult General Chief complaint: Dizziness Stated complaint: nausea, dizzy, headache Time Seen by Provider: 04/02/25 15:01 Source: patient, family (daughter and granddaughter), RN notes reviewed and old records reviewed Mode of arrival: EMS Limitations: no limitations History of Present Illness ED Provider: Carla HPI narrative: 79-year-old female with past medical history significant for previous CVA with left-sided deficits, paroxysmal AFib on Eliquis, type 2 diabetes, hypertension, hyperlipidemia, hypothyroidism, hypomagnesemia presents for evaluation of weakness and dizziness per the patient's granddaughter, the patient has had intermittent dizziness for at least a week the patient has been complaining of dizziness today for the last 3 hours prior to arrival starting around 1 or 2:00 p.m. patient reports when she stands up her head feels heavy and she gets lightheaded. She denies any difficulty with speech, weakness beyond her left-sided deficits denies any fevers, chills, cough, chest pain the patient's granddaughter reports that around the onset of her symptoms, the patient was somewhat less responsive but was able to answer questions per the patient's granddaughter, the patient has had intermittent diarrhea and then constipation over the last few months. She had labs 8 days ago that showed a critically low magnesium. The patient has been getting magnesium twice daily for the last 8 days the patient reports that she had no bowel movement in the 2 previous days but did have a normal bowel movement this morning. Denies any black or bloody stool Related Data Home Medications ?Medication ?Instructions ?Recorded ?Confirmed sertraline 25 mg tablet 25 mg PO DAILY 12/07/24 01/09/25 cholecalciferol (vitamin D3) 25 25 mcg PO DAILY 12/16/24 01/09/25 mcg (1,000 unit) tablet (Vitamin D3) cyanocobalamin (vitamin B-12) 250 500 mcg PO DAILY 12/16/24 01/09/25 mcg tablet Previous Rx's ?Medication ?Instructions ?Recorded pen needle, diabetic 32 gauge x #100 ea 11/05/2311/26 (Novofine 32) Stair lift #1 ea 01/19/24 blood-glucose meter (FreeStyle #1 ea 12/07/24 Lite Meter kit) doxycycline hyclate 100 mg capsule 100 mg PO BID #10 caps 01/09/25 apixaban 5 mg tablet (Eliquis) 5 mg PO BID #60 tabs 01/30/25 atorvastatin 80 mg tablet 80 mg PO DAILY #90 tabs 01/30/25 blood sugar diagnostic #100 ea 01/30/25 ezetimibe 10 mg tablet 10 mg PO BEDTIME #30 tabs 01/30/25 metformin 1,000 mg tablet 1,000 mg PO BIDWM #180 tabs 01/30/25 omeprazole 20 mg capsule,delayed 20 mg PO DAILY #90 caps 01/30/25 release gabapentin 300 mg capsule 300 mg PO DAILY #90 caps 02/02/25 losartan 25 mg tablet 12.5 mg (1/2 x 25 mg) PO DAILY #90 02/02/25 tabs levothyroxine 112 mcg tablet 112 mcg PO DAILY #90 tabs 02/19/25 liraglutide 0.6 mg/0.1 mL (18 mg/3 1.2 mg (0.2 mL) subcut DAILY 30 02/19/25 mL) subcutaneous pen injector days #6 mL magnesium oxide 400 mg PO BID #10 tabs 03/29/25 Allergies Allergy/AdvReac Type Severity Reaction Status Date / Time amoxicillin [Augmentin] Allergy Unknown hives Verified 04/02/25 15:14 clavulanic acid [Augmentin] Allergy Unknown hives Verified 04/02/25 15:14 furosemide Allergy Unknown unknown Verified 04/02/25 15:14 latex [LATEX] Allergy Unknown UNKNOWN Verified 04/02/25 15:14 lisinopril Allergy Unknown Unknown Verified 04/02/25 15:14 oxycodone [Percocet] Allergy Unknown Stomach Verified 04/02/25 15:14 upset tramadol Allergy Unknown Stomach Verified 04/02/25 15:14 uspet Review of Systems 2 Constitutional: Constitutional: Denies body ache(s), Denies chills, Denies fever(s) and Denies headache(s) Eyes: Eyes: Denies blurry vision ENT: Reports vertigo, Reports dizziness and Denies headache(s) Cardiovascular: Cardiovascular: Denies syncope, Denies rapid heart rate, Denies pedal edema, Reports lightheadedness and Denies dyspnea Respiratory: Respiratory: Denies cough and Denies dyspnea Gastrointestinal: Gastrointestinal: Reports abdominal pain, Denies melena, Denies hematochezia, Denies diarrhea, Denies loose stools, Denies nausea and Denies vomiting Musculoskeletal: Musculoskeletal: Denies back pain Integumentary/Breasts: Skin/Breast: Denies rash Neurologic: Reports vertigo, Reports dizziness, Denies syncope and Denies headache(s) [facility] Past Medical History Medical History (Updated 04/02/25 @ 21:44 by Morris Aguirre) Buttock wound Obesity (BMI 30-39.9) Neuropathy Acquired hypothyroidism Mixed hyperlipidemia Essential hypertension Atrial fibrillation Hypothyroidism Obesity Type 2 diabetes mellitus with morbid obesity Annual physical exam Vitamin D deficiency HLD (hyperlipidemia) T2DM (type 2 diabetes mellitus) Diabetes mellitus Hypertension Surgical History (Updated 04/03/25 @ 01:03 by SYDNIE Montoya) H/O hysterectomy for benign disease History of vitrectomy History of surgery History of colonoscopy (~01/28/19) History of appendectomy History of cholecystectomy S/P JOSIE (total abdominal hysterectomy) Family History Family History Father Diabetes Mother CHF (congestive heart failure) CVD (cardiovascular disease) Brother HIV (human immunodeficiency virus infection) Social History Social History Household Members: None Housing: Condominium Do you presently have visiting nurse or other home services: No Alcohol intake: current Patient Tobacco Use Status: Former Tobacco user Tobacco use type: Cigarette Years Smoked: 30, started at 10, about 15 cig a day, e-Cigarette/Vaping Use: Currently Using Second Hand Smoke Exposure: Yes Advance Directives: Yes Advance Directives on File: Yes Advance Directives Date on File: 12/15/23 Do you have a plan to hurt others: No Plan Patient : No service: No Current occupational status: retired Cognitive needs: No Hearing needs: No Vision needs: No Physical Exam ED Vital Signs: Vital Signs - 24 hr 04/02/25 15:08 04/02/25 16:01 04/02/25 16:40 Temperature 97.3 F Pulse Rate 67 68 66 Respiratory Rate 12 12 Blood Pressure 92/42 L 121/57 L 116/57 L Pulse Oximetry 100 100 Oxygen Delivery Method Room Air Room Air Oxygen Flow Rate 04/02/25 16:40 04/02/25 18:06 04/02/25 20:08 Temperature 98.2 F Pulse Rate 71 70 66 Respiratory Rate 12 Blood Pressure 158/50 H 107/46 L 120/50 L Pulse Oximetry 92 Oxygen Delivery Method Room Air Oxygen Flow Rate 04/02/25 20:08 04/02/25 23:46 04/02/25 23:46 Temperature Pulse Rate 71 66 Respiratory Rate 16 Blood Pressure 135/37 L 121/45 L Pulse Oximetry 86 L 96 Oxygen Delivery Method Room Air Nasal Cannula Oxygen Flow Rate 2 04/03/25 00:00 Temperature Pulse Rate 64 Respiratory Rate 16 Blood Pressure 131/60 Pulse Oximetry 99 Oxygen Delivery Method Nasal Cannula Oxygen Flow Rate 2 BMI result Body Mass Index 27.5 Const General: healthy appearing, comfortable, no acute distress, alert and awake Nutritional Appearance: well nourished Orientation/consciousness: patient oriented x3 HENMT Head: Yes normocephalic and Yes atraumatic Eyes Eyelids: Yes eyelids normal Conjunctivae: conjunctivae normal Sclerae: sclerae normal Corneas: corneas normal Pupils: Equal, round and reactive pupils present EOM: EOMs intact bilaterally Neck Neck: Yes full ROM Resp Effort & Inspection: normal respiratory effort, able to speak in complete sentences and not labored GI Other: Diffuse abdominal pain without distention or guarding Inspection: No distended Palpation (GI): Soft to palpation, not firm, Tenderness to palpation present (GI) in the LLQ, in the RLQ, in the LUQ and in the RUQ, no guarding and not rigid Skin General skin exam: elasticity normal Neuro General: patient oriented x3 Cranial nerves: Yes Equal, round and reactive pupils present and Yes Bilaterally intact EOM present Cognition (Neuro): normal cognition Extrem Other: Moving all extremities well without any obvious deformities Course Reevaluation(s) Reevaluation #1: attempted orthostatics again after 2 L of fluid and meclizine. The patient is still unable to tolerate standing. we will discuss with the hospitalist for admission to rule out subacute posterior stroke. a CT angiography was considered but not ordered because the patient's symptoms ultimately started about 1 week ago and has been waxing and waning in intensity there would be no indication for thrombectomy if there was a large vessel occlusion. The patient is already anticoagulated as well in his outside the window for TNK Time: 21:03 Reevaluation #2: Discussed with hospitalist, Dr. Rai who recommends CT angiography of the head and neck Time: 21:22 Reevaluation #3: I assumed care of this patient from my colleague, physician optometry assistant Doni Aguirre at 22:00 hours pending the patient's CT angiogram of the head and neck. The CT scan did not reveal any significant retrievable clot in the head or neck or evidence of dissection. Patient did have small caliber bilateral vertebral arteries but I do not think that this is a significant finding. The patient was admitted to the covering hospitalist, Dr. Merino for further evaluation and to rule out possible cerebellar stroke as the cause of her symptoms. Medications Administered Generic Name Dose Route Start Last Admin Trade Name Freq PRN Reason Stop Dose Admin Acetaminophen 650 mg 04/02/25 23:55 04/03/25 01:10 Acetaminophen 325 Mg Tablet PO 650 mg Q6H PRN Administration Pain, Mild 1-3,fever,headache Sodium Chloride 3 ml 04/03/25 00:00 04/03/25 00:00 0.9 % Sodium Chloride Flush 3 Ml Syringe IVFLUSH 3 ml QSHIFT CONNER Administration Discontinued Medications Generic Name Dose Route Start Last Admin Trade Name Freq PRN Reason Stop Dose Admin Magnesium Sulfate 2 gm in 50 mls @ 150 mls/hr 04/02/25 16:38 04/02/25 17:19 Magnesium Sulfate/H2o IV 04/02/25 16:57 Infused ONCE ONE Infusion Sodium Chloride 1,000 mls @ 999 mls/hr 04/02/25 18:15 04/02/25 20:00 Ns IV 04/02/25 19:15 Infused .Q1H1M CONNER Infusion Iohexol 75 ml 04/02/25 21:47 04/02/25 21:47 Iohexol 350 Mg/Ml 75 Ml Infus..Btl IV 04/02/25 21:48 75 ml ONCE ONE Administration Meclizine HCl 50 mg 04/02/25 17:00 04/02/25 17:16 Meclizine Hcl 25 Mg Tablet PO 04/02/25 17:01 50 mg ONCE ONE Administration Medical Decision Making Medical Decision Making MDM Narrative: 79-year-old female with a past medical history as above presents for evaluation of multiple complaints including headache, lightheadedness with dizziness and abdominal pain. She has had on and off abdominal pain for several months with intermittent diarrhea and constipation. She has not had diarrhea in the last few days and had a normal bowel movement this morning. EKG is normal sinus rhythm with a rate of [address] segment elevations or depressions. CT scan of the brain and is dying homeless did not show any acute findings. The patient has been mildly hypotensive which did respond to IV fluids. Her magnesium was low at 1.4 which was repleted IV. The patient was initially unable to tolerate standing for orthostatics, a 2 L of IV fluids was ordered. She was given meclizine as well. Differential Diagnosis Differential Diagnoses: The differential diagnosis associated with the presentation includes Vertigo Orthostasis Dehydration CVA Intracranial hemorrhage Diverticulitis Abdominal pain Constipation STEFAN Admission/Observation Consideration of admission/observation: Escalation of care including admission/observation considered Consult Healthcare Provider Management of the patient was discussed with: Hospitalist (Dr Rai) Lab Data MDM Lab Attestation statement: I reviewed the patient's lab results. no leukocytosis. The patient has a mild anemia that has been consistent. her hemoglobin hematocrit are essentially equivalent to the labs from outpatient 8 days ago. Normal platelet count. magnesium low as mentioned above, no other significant electrolyte abnormalities. Troponin negative 04/02/25 16:09 04/02/25 16:09 Labs: Lab Results 04/02/25 Range/Units 16:09 WBC 9.8 (4.8-10.8) X10*3/uL RBC 3.73 L (4.20-5.50) X10*6/uL Hgb 9.3 L (12.0-16.0) g/dl Hct 30.3 L (37.0-47.0) % MCV 81.2 (80.0-98.0) fL MCH 24.9 L (27.0-33.0) pg MCHC 30.7 L (31.0-35.0) g/dl RDW 14.9 (11.0-16.0) % Plt Count 291 (160-400) X10*3/uL MPV 10.9 (9.4-12.3) fL Immature Gran % (Auto) 0.4 (0.0-0.4) % Neut % (Auto) 76.8 H (45-73) % Lymph % (Auto) 15.8 L (20-40) % [place]pin % (Auto) 6.2 (2-11) % Eos % (Auto) 0.5 (0-4) % Baso % (Auto) 0.3 (0-2) % Lymph # (Auto) 1.6 (1.2-4.9) X10*3/uL [place]pin # (Auto) 0.6 (0.1-1.2) X10*3/uL Eos # (Auto) 0.1 (0.0-0.4) X10*3/uL Baso # (Auto) 0.0 (0.0-0.2) X10*3/uL Abs Immat Gran (auto) 0.04 H (0.00-0.03) X10*3/uL Absolute Neuts (auto) 7.5 (2.0-8.3) x10*3/uL Absolute Nucleated RBC 0.000 (0.0-0.012) X10*3/uL Nucleated RBC % (auto) 0.0 (0.0-0.2) /100WBC Sodium 141 (135-145) mmol/L Potassium 4.2 (3.3-5.1) mmol/L Chloride 108 (96-108) mmol/L Carbon Dioxide 23 (22-29) mmol/L Anion Gap 14 (12-20) BUN 17 H (9-16) mg/dL Creatinine 0.81 (0.5-1.4) mg/dL Estim Creat Clear Calc 55.0 Estimated GFR > 60 Random Glucose 91 (60-115) mg/dL Calcium 9.8 (8.4-10.2) mg/dL Phosphorus 1.9 L (2.7-4.5) mg/dL Magnesium 1.4 L* (1.6-2.6) mg/dL Total Bilirubin 0.3 (0.0-1.0) mg/dL AST 37 H (5-31) U/L ALT 25 (0-31) U/L Alkaline Phosphatase 169 H (39-117) U/L Troponin I High Sens 15.6 (<3.5-17.0) ng/L Total Protein 6.1 L (6.5-8.0) g/dL Albumin 3.5 (3.5-5.0) g/dL Lipase 33 (8-78) U/L TSH 0.03 L (0.32-4.0) uIU/mL Free T4 1.46 (0.71-1.85) ng/dL Influenza Type A (PCR) NEGATIVE (Negative) Influenza Type B (PCR) NEGATIVE (Negative) RSV RNA Qual (PCR) NEGATIVE (Negative) SARS-CoV-2 RNA (RT-PCR) NEGATIVE (Negative) Radiology Impression Discussion of test interpretation with radiology: I have reviewed the radiologist's reading. Radiologist Impression: CT angiography head and neck with contrast. 3D Postprocessing. Comparison: CT/SR - CT HEAD/BRAIN WO IV CON - 04/02/25 15:35 EDT Findings: Aortic arch and cervical great vessels are patent with no aneurysm, dissection, hemodynamically significant stenoses, or occlusion. Intracranial arteries are patent. No aneurysm, dissection, hemodynamically significant stenoses, or occlusion. 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 Hypoplastic left DANA A1 segment, normal variant. No abnormal intracranial enhancement. The visualized thyroid gland is unremarkable. No cervical mass or fluid collection. Lung apices clear. No acute fracture. IMPRESSION: Patent head and neck CTA. Small caliber bilateral vertebral arteries and proximal basilar artery with persistent right trigeminal artery, normal variant. Hypoplastic left DANA A1 segment, normal variant. This document has been electronically signed by: Johny Soto MD on 04/02/2025 22:48:43 Discharge Plan Discharge Patient Disposition: Admitted As Inpatient Prescriptions: No Action (DME) pen needle, diabetic [Novofine 32] 32 gauge x 1/4 needle See Rx Instructions .Route Qty: 100 0RF Rx Instructions: As directed up to three times per day (DME) Stair lift See Rx Instructions .Route .MEDSUPPLY Qty: 1 0RF Rx Instructions: As directed (DME) blood sugar diagnostic Strip See Rx Instructions .ROUTE .MEDSUPPLY Qty: 100 11RF Rx Instructions: FREESTYLE LITE TEST STRIPS TO CHECK THREE TIMES A DAY atorvastatin 80 mg tablet 80 mg PO DAILY Qty: 90 3RF ezetimibe 10 mg tablet 10 mg PO BEDTIME Qty: 30 1RF metformin 1,000 mg tablet 1,000 mg PO BIDWM Qty: 180 3RF omeprazole 20 mg capsule,delayed release(DR/EC) 20 mg PO DAILY Qty: 90 0RF Eliquis 5 mg tablet 5 mg PO BID Qty: 60 4RF losartan 25 mg tablet 12.5 mg PO DAILY Qty: 90 8RF gabapentin 300 mg capsule 300 mg PO DAILY Qty: 90 1RF liraglutide 0.6 mg/0.1 mL (18 mg/3 mL) pen injector 1.2 mg subcut DAILY 30 Days Qty: 6 10RF levothyroxine 112 mcg tablet 112 mcg PO DAILY Qty: 90 1RF magnesium oxide 400 mg magnesium tablet 400 mg PO BID Qty: 10 0RF cyanocobalamin (vitamin B-12) 250 mcg Tablet 500 mcg PO DAILY cholecalciferol (vitamin D3) [Vitamin D3] 25 mcg (1,000 unit) Tablet 25 mcg PO DAILY sertraline 25 mg tablet 25 mg PO DAILY (DME) blood-glucose meter [FreeStyle Lite Meter] Kit See Rx Instructions .ROUTE .MEDSUPPLY Qty: 1 0RF Rx Instructions: As directed doxycycline hyclate 100 mg capsule 100 mg PO BID Qty: 10 0RF Print Language: Comoran
[2025-04-02 16:16] LABS: MANUAL DIFF FLAG NO
[2025-04-02 16:25] LABS: Basophils Percent Auto 0.3 % (0-2); Eosinophils Absolute Auto 0.1 X10*3/uL (0.0-0.4); Eosinophils Percent Auto 0.5 % (0-4); Hematocrit 30.3 % (37.0-47.0); Hemoglobin 9.3 g/dl (12.0-16.0); Imm Gran Abs Auto 0.04 X10*3/uL (0.00-0.03); Imm Gran Pct Auto 0.4 % (0.0-0.4); Lymphocytes Absolute Auto 1.6 X10*3/uL (1.2-4.9); Lymphocytes Percent Auto 15.8 % (20-40); Mean Corpuscular HGB Conc 30.7 g/dl (31.0-35.0); Mean Corpuscular Hemoglobin 24.9 pg (27.0-33.0); Mean Corpuscular Volume 81.2 fL (80.0-98.0); Mean Platelet Volume 10.9 fL (9.4-12.3); Monocytes Absolute Auto 0.6 X10*3/uL (0.1-1.2); Monocytes Percent Auto 6.2 % (2-11); Neutrophils Absolute Auto 7.5 x10*3/uL (2.0-8.3); Neutrophils Percent Auto 76.8 % (45-73); Platelet Count 291 X10*3/uL (160-400); Red Blood Count 3.73 X10*6/uL (4.20-5.50); Red Cell Distribution Width 14.9 % (11.0-16.0); White Blood Count 9.8 X10*3/uL (4.8-10.8)
[2025-04-02 16:35] LABS: Alanine Aminotransferase 25 U/L (0-31); Albumin Level 3.5 g/dL (3.5-5.0); Alkaline Phosphatase 169 U/L (39-117); Anion Gap 14 (12-20); Aspartate Amino Transferase 37 U/L (5-31); Bilirubin Total 0.3 mg/dL (0.0-1.0); Blood Urea Nitrogen 17 mg/dL (9-16); Calcium 9.8 mg/dL (8.4-10.2); Carbon Dioxide 23 mmol/L (22-29); Chloride 108 mmol/L (96-108); Estimated Glomerular Filt Rate > 60; Glucose Random 91 mg/dL (60-115); Lipase 33 U/L (8-78); Phosphorus 1.9 mg/dL (2.7-4.5); Potassium 4.2 mmol/L (3.3-5.1); Sodium 141 mmol/L (135-145); Total Protein 6.1 g/dL (6.5-8.0)
[2025-04-02 16:40] LABS: Magnesium 1.4 mg/dL (1.6-2.6)
[2025-04-02 16:42] LABS: Troponin-I High Sensitivity 15.6 ng/L (<3.5-17.0)
[2025-04-02] MEDS: Magnesium Sulfate/H2O 2 GM/50 ML PIGGYBACK IV (16:52)
[2025-04-02 16:57] LABS: Influenza A PCR NEGATIVE (Negative); Influenza B PCR NEGATIVE (Negative); Resp Syncy Virus RNA Qual PCR NEGATIVE (Negative); SARS COV2 PCR INHOUSE NEGATIVE (Negative)
[2025-04-02] MEDS: Meclizine HCl 25 MG TABLET 50 MG PO (17:16)
[2025-04-02] MEDS: 0.9 % Sodium Chloride 1,000 ML 999 ML IV (18:22)
--- NOTE | 2025-04-02 19:16 | PC.NURSE ---
pt had arm with iv bent, pt repositioned to R. side with pillow under hip per request, pillow under R. elbow to help straighten arm. ivf still infusing at this time. daughter at bedside. call lerma within reach.
[2025-04-02] MEDS: iohexoL 350 MG/ML 75 ML INFUS..BTL IV (21:47)
[2025-04-03] VITALS (11 sets, daily range): BP systolic 125–157; BP diastolic 45–71; PULSE 57–66; RESP 16–20; TEMP 36.4–37.1; O2SAT 97–99; BMI 24.5
[2025-04-03 00:34] LABS: Free T4 (Free Thyroxine) 1.46 ng/dL (0.71-1.85); Thyroid Stimulating Hormone 0.03 uIU/mL (0.32-4.0)
--- NOTE | 2025-04-03 00:36 | P.HPHOSP_ITS ---
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 Pt denies falling or hitting her head or a syncopal episode with LOC or loss of bowel or bladder function. Pt has chronic Left sided weakness in upper and lower extremities from previous CVA. Pt is complaining of a mild occipital JONES. CTA was completed priror to accepting for admission, no acute findings with normal variants. CT head also negative for acute findings. Patient is a diabetic and checks her blood sugar once daily in the morning before breakfast. Patient denies any issues with hypoglycemia or hyperglycemia. Pt has also been having 2 months of persistent diarrhea releived with immodium taken every 2 days routinely. Pt also started taking lactaid when consuming dairy as she beleives she may be lactose intolerant. Pt has not seen GI so far. Per pt's daughter, pt's appetite has been fair and pt has ot been hydrating very well. Renal function is stable. ECG and tele note accelerated junctional rhythm. Pt recently told her magnesium was critically low and was started on oral MG. MG today 1.4, pt is receiving MG IV in ED. Pt was recently diagnosed with HFrEF, 40-45% with ICM but does not currently have chest pain, SOB at rest or with exertion. Pt does wear O2 at night only and denies hx of HAVEN. Pt is not currently on diuretics with no evidence of pleural effusion or pulmonary edema. BNP pending. Patient presents euvolemic. Pt does currently use electronic cigarettes, low dose overall. Pt is requesting NRT for admission. Ordering 7 mg nicotine patch. Incidentally patient's TSH is 0.03 L, free T4 1.46 N. Patient is currently on levothyroxine. Will need to reduce the levothyroxine dose once MED REC is completed. Pt does have a chronic L buttocks stage 2 wound and wound care is done at home by her family member that is a nurse. Pt does not attend wound care clinic. Pt denies fever, chills, nausea or vomiting. Patient being admitted for further monitoring, MRI of the brain and expert consultation with neurology, cardiology, GI, wound care and PT eval. Review of Systems 2 Review of Systems: Pt denies chest pain, SOB at rest, abdominal pain, nausea. Pt has been having diarrhea intermittently over the last 2 months or more and has been self medicating with immodium usually every 2 days and lactaid with dairy as pt believes she might be lactose intolerant. Pt denies any recent falls. Yes all other systems are reviewed and are negative [facility] Medical History (Updated 04/02/25 @ 21:44 by Morris Aguirre) Buttock wound Obesity (BMI 30-39.9) Neuropathy Acquired hypothyroidism Mixed hyperlipidemia Essential hypertension Atrial fibrillation Hypothyroidism Obesity Type 2 diabetes mellitus with morbid obesity Annual physical exam Vitamin D deficiency HLD (hyperlipidemia) T2DM (type 2 diabetes mellitus) Diabetes mellitus Hypertension Cognitive capacity: A/O X3 NAD Functional capacity: uses cane/walker Patient : No Family History Father Diabetes Mother CHF (congestive heart failure) CVD (cardiovascular disease) Brother HIV (human immunodeficiency virus infection) Surgical History (Updated 04/03/25 @ 01:03 by SYDNIE Montoya) H/O hysterectomy for benign disease History of vitrectomy History of surgery History of colonoscopy (~01/28/19) History of appendectomy History of cholecystectomy S/P JOSIE (total abdominal hysterectomy) Social History Household Members: None Housing: Condominium Do you presently have visiting nurse or other home services: No Alcohol intake: current Patient Tobacco Use Status: Former Tobacco user Tobacco use type: Cigarette Years Smoked: 30, started at 10, about 15 cig a day, e-Cigarette/Vaping Use: Currently Using Second Hand Smoke Exposure: Yes Advance Directives Date on File: 12/15/23 service: No Current occupational status: retired Cognitive needs: No Hearing needs: No Vision needs: No Ebola Risk: Travel/Contact With Anyone From Affected Area/s: No Has Patient Experienced Ebola Symptoms: No Meds Allergies Allergy/AdvReac Type Severity Reaction Status Date / Time amoxicillin [Augmentin] Allergy Unknown hives Verified 04/02/25 15:14 clavulanic acid [Augmentin] Allergy Unknown hives Verified 04/02/25 15:14 furosemide Allergy Unknown unknown Verified 04/02/25 15:14 latex [LATEX] Allergy Unknown UNKNOWN Verified 04/02/25 15:14 lisinopril Allergy Unknown Unknown Verified 04/02/25 15:14 oxycodone [Percocet] Allergy Unknown Stomach Verified 04/02/25 15:14 upset tramadol Allergy Unknown Stomach Verified 04/02/25 15:14 uspet Active Medications: Current Medications Acetaminophen (Acetaminophen 325 Mg Tablet) 650 mg PO Q6H PRN PRN Reason: Pain, Mild 1-3,fever,headache Calcium Carbonate (Calcium Carbonate 750 Mg Tab.Chew) 750 mg PO Q4H PRN PRN Reason: Heartburn Magnesium Hydroxide (Milk Of Magnesia 30 Ml Oral.Susp) 30 ml PO DAILY PRN PRN Reason: Constipation Melatonin (Melatonin 3 Mg Tablet) 6 mg PO BEDTIME PRN PRN Reason: Insomnia Ondansetron HCl (Ondansetron Hcl 4 Mg/2 Ml Vial) 4 mg IVPUSH Q8H PRN PRN Reason: Nausea and Vomiting Senna (Sennosides 8.6 Mg Tablet) 17.2 mg PO BEDTIME CONNER Sodium Chloride (0.9 % Sodium Chloride Flush 3 Ml Syringe) 3 ml IVFLUSH QSHIFT CONNER Home Medications ?Medication ?Instructions ?Recorded ?Confirmed ?Last Taken ?Type sertraline 25 mg tablet 25 mg PO DAILY 12/07/24 01/09/25 Unknown History cholecalciferol (vitamin D3) 25 25 mcg PO DAILY 12/16/24 01/09/25 Unknown History mcg (1,000 unit) tablet (Vitamin D3) cyanocobalamin (vitamin B-12) 250 500 mcg PO DAILY 12/16/24 01/09/25 Unknown History mcg tablet Physical Exam 2 Vital Signs and Narrative: Vital Signs: Last Vital Signs Temp 98.2 F 04/02/25 18:06 Pulse 66 04/02/25 23:46 Resp 16 04/02/25 23:46 BP 121/45 L 04/02/25 23:46 Pulse Ox 96 04/02/25 23:46 O2 Del Method Nasal Cannula 04/02/25 23:46 O2 Flow Rate 2 04/02/25 23:46 BMI result Body Mass Index 27.5 Alert and orientated X3, awake and able to follow commands Neuro: CN II-X11 assessed, visual acuity intact, slight R facial droop noted, Left upper and lower ext weakness 3/5, 5/5 RU and RL ext EYES: PERRLA, EOM intact, conjunctiva pink ENT: hearing intact, no cerumen noted B. TM pearly acevedo, no issues with swallowing, uvula midline, lips moist, mucosa dry, nares patent no epistaxis Cardiac: S1 S2 RRR, no murmur, no JVD, no edema in Lower ext Pulmonary: lungs clear to ausculation B Abdominal: BS active in all 4 quadrants, no guarding, tenderness, rebounding, no distension, no hepatomegaly MSK: strength 3/5 L upper and lower extremities, 5/5 R upper and lower ext : no CVA tenderness no bladder distension Extremities: no edema in lower extremities, PT and DP pulses palpable +2 Psych: mood stable, judgement and insight good Skin: stage II L buttock wound in healing stage Results Labs 04/02/25 16:09 04/02/25 16:09 Labs: Laboratory Results - last 24 hr 04/02/25 16:09 MCV 81.2 MCH 24.9 L MCHC 30.7 L RDW 14.9 Plt Count 291 MPV 10.9 Immature Gran % (Auto) 0.4 Neut % (Auto) 76.8 H Lymph % (Auto) 15.8 L [place] % (Auto) 6.2 Eos % (Auto) 0.5 Baso % (Auto) 0.3 Lymph # (Auto) 1.6 [place] # (Auto) 0.6 Eos # (Auto) 0.1 Baso # (Auto) 0.0 Abs Immat Gran (auto) 0.04 H Absolute Neuts (auto) 7.5 Absolute Nucleated RBC 0.000 Nucleated RBC % (auto) 0.0 Anion Gap 14 Estim Creat Clear Calc 55.0 Estimated GFR > 60 Random Glucose 91 Calcium 9.8 Phosphorus 1.9 L Magnesium 1.4 L* Total Bilirubin 0.3 AST 37 H ALT 25 Alkaline Phosphatase 169 H Total Protein 6.1 L Albumin 3.5 Lipase 33 TSH 0.03 L Free T4 1.46 Influenza Type A (PCR) NEGATIVE Influenza Type B (PCR) NEGATIVE RSV RNA Qual (PCR) NEGATIVE SARS-CoV-2 RNA (RT-PCR) NEGATIVE ECG Attestation: I personally reviewed and interpreted this ECG as follows: (Accelerated junctional rhythm ) ECG interpretation date: 04/03/25 Prior ECG tracings: available for review Imaging Radiologist's Impressions: CTA Head and Neck IMPRESSION: Patent head and neck CTA. Small caliber bilateral vertebral arteries and proximal basilar artery with persistent right trigeminal artery, normal variant. Hypoplastic left DANA A1 segment, normal variant. CT ABD and Pelvis IMPRESSION: 1. Ventral abdominal /pelvis wall fat containing hernia with fascial defect measuring 2.5 x 1.9 cm. No bowel involvement. 2. Colonic diverticulosis without evidence of diverticulitis. 3. Moderate intrahepatic and extrahepatic biliary ductal dilatation, stable from prior imaging. This is most likely a chronic finding. No pancreatic head mass or choledocholithiasis identified. 4. Indeterminate 0.9 cm lesion of the superior pole of the right kidney. This may represent a proteinaceous cyst. Renal protocol CT, MR or ultrasound may be helpful for further characterization CT head IMPRESSION: 1. No acute intracranial findings. 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 The following is a list of patient's current medical cocnerns upon admission: Dizziness -MRI BRain for AM -Neurology consulted -PT eval -Orthostatics -Fall prevention -no dysphgia or issues with swallowing, NO ST eval ordered at this time -Meclizine given in ED, no evidence of vertigo on exam Hypomagnesemia -MG 1.4, 2 gms X2 provied -repeat MG in AM -telemetry Hypophosphatemia -repeat in AM phosphorous level, replenish if indicated Accelerated Junctional Rhythm -Telemetry -Cardiology consulted Paroxysmal AFIB on eliquis -ordered eliquis -telemetry -ACC Junctional rhythm noted, per pt's FIT BIT, HR at night has been in the high 30's to 110, no HX of HAVEN -Pt using O2 at night only Chronic Systolic HF with reduced EF 40-45%, ICM -BNP pending -Cardiology consulted -No need for repeat ECho, done in February 2025 -daily weights, low sodium diet, I/os Persistent diarrhea, self treating with immodium -GI consulted -CT ABD neg for diverticulitis, hx of diverticulosis -Pt has been using lactaid with dairy, unclear if this is a case of true lactose intolerance -no diarrhea in last 24 hours, no indication for stool studies, CDIFF at this time -Pt cannot recall last colonoscopy Hypothyroidism -TSH 0.03. 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
--- NOTE | 2025-04-03 01:08 | MHC.EDTECH ---
assumed care of this pt
[2025-04-03] MEDS: Acetaminophen 325 MG TABLET 650 MG PO ×2 (01:10→19:55)
[2025-04-03] MEDS: Nicotine 7 MG PATCH.TD24 TRANSDERMA (02:03)
[2025-04-03] MEDS: Magnesium Sulfate/H2O 2 GM/50 ML PIGGYBACK IV (02:04)
--- NOTE | 2025-04-03 02:16 | PC.NURSE ---
Addendum entered by Gisele Dennis 04/03/25 04:01: still no uo. made aware. Original Note: pt had no urine output since arrival bladder scan shows 271, purewick placed for pt as states does not feel comfortable getting up to use bathroom, states does have urge to urinate and will try.
[2025-04-03 04:49] LABS: MANUAL DIFF FLAG NO
[2025-04-03 05:02] LABS: Basophils Percent Auto 0.4 % (0-2); Eosinophils Absolute Auto 0.1 X10*3/uL (0.0-0.4); Eosinophils Percent Auto 1.6 % (0-4); Hematocrit 27.1 % (37.0-47.0); Hemoglobin 8.4 g/dl (12.0-16.0); Imm Gran Abs Auto 0.02 X10*3/uL (0.00-0.03); Imm Gran Pct Auto 0.3 % (0.0-0.4); Lymphocytes Absolute Auto 2.4 X10*3/uL (1.2-4.9); Lymphocytes Percent Auto 31.7 % (20-40); Mean Corpuscular Hemoglobin 25.2 pg (27.0-33.0); Mean Corpuscular Volume 81.4 fL (80.0-98.0); Mean Platelet Volume 11.2 fL (9.4-12.3); Monocytes Absolute Auto 0.7 X10*3/uL (0.1-1.2); Monocytes Percent Auto 8.9 % (2-11); Neutrophils Absolute Auto 4.3 x10*3/uL (2.0-8.3); Neutrophils Percent Auto 57.1 % (45-73); Platelet Count 263 X10*3/uL (160-400); Red Blood Count 3.33 X10*6/uL (4.20-5.50); White Blood Count 7.6 X10*3/uL (4.8-10.8)
[2025-04-03 05:17] LABS: Alanine Aminotransferase 24 U/L (0-31); Albumin Level 3.2 g/dL (3.5-5.0); Alkaline Phosphatase 148 U/L (39-117); Anion Gap 12 (12-20); Aspartate Amino Transferase 34 U/L (5-31); Bilirubin Total 0.3 mg/dL (0.0-1.0); Blood Urea Nitrogen 17 mg/dL (9-16); Calcium 9.2 mg/dL (8.4-10.2); Carbon Dioxide 26 mmol/L (22-29); Chloride 107 mmol/L (96-108); Creatinine Clr Calc Pharmacy 57.9; Estimated Glomerular Filt Rate > 60; Glucose Random 82 mg/dL (60-115); Iron 28 mcg/dL (30-160); Percent Iron Saturation 10 % (15-50); Phosphorus 2.5 mg/dL (2.7-4.5); Potassium 3.6 mmol/L (3.3-5.1); Sodium 141 mmol/L (135-145); Total Iron Binding Capacity 290 mcg/dL (228-428); Total Protein 5.6 g/dL (6.5-8.0); Unsaturated Iron Binding 262 ug/dL
[2025-04-03 05:23] LABS: B Type Natriuretic Peptide 196 pg/mL (<100)
[2025-04-03] MEDS: Omeprazole 20 MG CAPSULE.DR PO (06:05)
--- NOTE | 2025-04-03 06:15 | PC.NURSE ---
pt remains axox4, took meds per mar. repeat bladder scan 223. no uo noted, purewick in place. aware.
[2025-04-03 07:18] LABS: Glucose, Whole Blood 89 mg/dL (60-115)
--- NOTE | 2025-04-03 08:00 | ECG_ITS ---
Test Reason : repeat am Blood Pressure : */* mmHG Vent. Rate : 61 BPM Atrial Rate : 61 BPM P-R Int : * ms QRS Dur : 86 ms QT Int : 428 ms P-R-T Axes : * -22 66 degrees QTcB Int : 430 ms Normal sinus rhythm Nonspecific ST and T wave abnormality Abnormal ECG When compared with ECG of 02-Apr-2025 16:27, No significant changes seen Referred By: Nneka Arteaga Electronically Signed By: SISI SOSA MD
[2025-04-03] MEDS: Apixaban 5 MG TABLET PO (08:52)
[2025-04-03] MEDS: 0.9 % Sodium Chloride Flush 3 ML SYRINGE IVFLUSH ×2 (08:52)
[2025-04-03 08:58] LABS: Appearance Urine Clear; Color Urine Yellow; Glucose Urine UA Negative (Negative); Leukocyte Esterase Urine Negative (Negative); Nitrite Urine Negative (Negative); PH 5.5 (5.0-9.0); Specific Gravity - Urine >= 1.030 (1.005-1.025); Urine Blood Negative (Negative); Urine Ketones Trace mg/dL (Negative); Urine Protein Negative (Neg-Trace)
--- NOTE | 2025-04-03 08:59 | PHA.MEDREC ---
Addendum entered by Dixie Willson [facility] 04/03/25 09:20: Reviewed by [facility] Original Note: Pharmacy Consult ? Medication Reconciliation Pharmacy has completed the medication reconciliation. Spoke with patient who was able to confirm some medications but got confused and asked us to call her Granddaughter/HCP Milli. I called and spoke with Milli on the phone and was able to confirm what the pt takes for at home medications. Milli confirmed the patient takes Losartan 25mg tabs 1/2 daily andgets it filled at [facility] on ; I called [facility] and the pt has not gotten that medication with them since 04/2024 and got a script in January 2025 that was never picked up.
[2025-04-03 09:15] LABS: Bacteria Urine None Seen (None Seen); Calcium Oxalate Crystals Urine Present; Hyaline Casts Urine 0-2 /LPF (0-2); RBC Urine 0-2 /HPF (0-2); Squamous Epithelial Cell Urine 0-2 /HPF (0-2); WBC Urine 0-5 /HPF (0-5)
--- NOTE | 2025-04-03 09:18 | MHC.CLN ---
NUTRITION PATIENT CURRENTLY IN ED. CHRONIC STAGE II WOUND TO LEFT BUTTOCKS NOTED. RD TO COMPLETE NUTRITIONAL ASSESSMENT UPON ADM TO UNIT.
--- NOTE | 2025-04-03 10:13 | P.PNIM_ITS ---
Subjective Subjective Date of Service: 04/03/25 Interval History: dizzy Physical Exam 2 Vital Signs: Vital Signs: Last Vital Signs Temp 98.0 F 04/03/25 08:42 Pulse 61 04/03/25 08:42 Resp 16 04/03/25 08:42 BP 137/49 L 04/03/25 08:42 Pulse Ox 97 04/03/25 08:42 O2 Del Method Room Air 04/03/25 08:42 O2 Flow Rate 2 04/03/25 00:00 BMI result Body Mass Index 27.5 General: AO X 3, no acute distress Resp: CTA bilateral, no accessory muscles used CVS: S1,S2,RRR GI: soft, non tender, non distended Neuro: motor grossly intact, alert Psych: appropriate affect, appropriate insight Objective Data Active Medications Acetaminophen (Acetaminophen 325 Mg Tablet) 650 mg PO Q6H PRN PRN Reason: Pain, Mild 1-3,fever,headache Last Admin: 04/03/25 01:10 Dose: 650 mg Documented By: MADELINE Atorvastatin Calcium (Atorvastatin Calcium 80 Mg Tablet) 80 mg PO DAILY [facility] Calcium Carbonate (Calcium Carbonate 750 Mg Tab.Chew) 750 mg PO Q4H PRN PRN Reason: Heartburn Cyanocobalamin (Cyanocobalamin (Vitamin B-12) 500 Mcg Tablet) 500 mcg PO DAILY [facility] Dextrose (Dextrose 50 % 25 Gm/50 Ml Syringe) 25 gm IVPUSH Q15M PRN; Protocol PRN Reason: per Hypoglycemia Standing Ord. Ezetimibe (Ezetimibe 10 Mg Tablet) 10 mg PO BEDTIME [facility] Gabapentin (Gabapentin 300 Mg Capsule) 300 mg PO BEDTIME [facility] Glucose (Glucose Gel 15 Gm Gel..Gram.) 15 gm PO Q15M PRN; Protocol PRN Reason: per Hypoglycemia Standing Ord. Insulin Human Lispro (Insulin Lispro 100 Unit/Ml 3 Ml Vial) 0 unit SUBCUT QIDACHS [facility]; Protocol Last Admin: 04/03/25 07:24 Dose: Not Given Documented By: ETHAN Non-Admin Reason: poc 89 Levothyroxine Sodium (Levothyroxine Sodium 100 Mcg Tablet) 100 mcg PO DAILY@0600 [facility] Loperamide HCl (Loperamide Hcl 2 Mg Capsule) 2 mg PO Q4H PRN PRN Reason: Constipation Magnesium Hydroxide (Milk Of Magnesia 30 Ml Oral.Susp) 30 ml PO DAILY PRN PRN Reason: Constipation Magnesium Oxide (Magnesium Oxide 400 Mg Tablet) 400 mg PO BID [facility] Melatonin (Melatonin 3 Mg Tablet) 6 mg PO BEDTIME PRN PRN Reason: Insomnia Omeprazole (Omeprazole 20 Mg Capsule.Dr) 20 mg PO DAILY@0630 [facility] Last Admin: 04/03/25 06:05 Dose: 20 mg Documented By: MADELINE Ondansetron HCl (Ondansetron Hcl 4 Mg/2 Ml Vial) 4 mg IVPUSH Q8H PRN PRN Reason: Nausea and Vomiting Senna (Sennosides 8.6 Mg Tablet) 17.2 mg PO BEDTIME [facility] Sertraline HCl (Sertraline Hcl 50 Mg Tablet) 50 mg PO DAILY [facility] Sodium Chloride (0.9 % Sodium Chloride Flush 3 Ml Syringe) 3 ml IVFLUSH QSHIFT [facility] Last Admin: 04/03/25 08:52 Dose: 3 ml Documented By: ETHAN Vitamin D (Cholecalciferol (Vitamin D3) 25 Mcg Tablet) 25 mcg PO DAILY [facility] Labs 04/03/25 04:29 04/03/25 04:29 Labs: Laboratory Results - last 24 hr 04/02/25 04/03/25 04/03/25 16:09 04:29 07:09 MCV 81.2 81.4 MCH 24.9 L 25.2 L MCHC 30.7 L 31.0 RDW 14.9 15.0 Plt Count 291 263 MPV 10.9 11.2 Immature Gran % (Auto) 0.4 0.3 Neut % (Auto) 76.8 H 57.1 Lymph % (Auto) 15.8 L 31.7 [place] % (Auto) 6.2 8.9 Eos % (Auto) 0.5 1.6 Baso % (Auto) 0.3 0.4 Lymph # (Auto) 1.6 2.4 [place] # (Auto) 0.6 0.7 Eos # (Auto) 0.1 0.1 Baso # (Auto) 0.0 0.0 Abs Immat Gran (auto) 0.04 H 0.02 Absolute Neuts (auto) 7.5 4.3 Absolute Nucleated RBC 0.000 0.000 Nucleated RBC % (auto) 0.0 0.0 Anion Gap 14 12 Estim Creat Clear Calc 55.0 57.9 Estimated GFR > 60 > 60 POC Glucose 89 Random Glucose 91 82 Calcium 9.8 9.2 D Phosphorus 1.9 L 2.5 L Magnesium 1.4 L* Iron 28 L TIBC 290 % Saturation 10 L Unsat Iron Binding 262 Total Bilirubin 0.3 0.3 AST 37 H 34 H ALT 25 24 Alkaline Phosphatase 169 H 148 H B-Natriuretic Peptide 196 H Total Protein 6.1 L 5.6 L Albumin 3.5 3.2 L Lipase 33 TSH 0.03 L Free T4 1.46 Urine Color Urine Appearance Urine pH Ur Specific [place] Urine Protein Urine Glucose (UA) Urine Ketones Urine Blood Urine Nitrite Ur Leukocyte Esterase Urine RBC Urine WBC Ur Squamous Epith Cells Calcium Oxalate Crystal Urine Bacteria Hyaline Casts Influenza Type A (PCR) NEGATIVE Influenza Type B (PCR) NEGATIVE RSV RNA Qual (PCR) NEGATIVE SARS-CoV-2 RNA (RT-PCR) NEGATIVE 04/03/25 08:27 MCV MCH MCHC RDW Plt Count MPV Immature Gran % (Auto) Neut % (Auto) Lymph % (Auto) [place] % (Auto) Eos % (Auto) Baso % (Auto) Lymph # (Auto) [place] # (Auto) Eos # (Auto) Baso # (Auto) Abs Immat Gran (auto) Absolute Neuts (auto) Absolute Nucleated RBC Nucleated RBC % (auto) Anion Gap Estim Creat Clear Calc Estimated GFR POC Glucose Random Glucose Calcium Phosphorus Magnesium Iron TIBC % Saturation Unsat Iron Binding Total Bilirubin AST ALT Alkaline Phosphatase B-Natriuretic Peptide Total Protein Albumin Lipase TSH Free T4 Urine Color Yellow Urine Appearance Clear Urine pH 5.5 Ur Specific [place] >= 1.030 H Urine Protein Negative Urine Glucose (UA) Negative Urine Ketones Trace Urine Blood Negative Urine Nitrite Negative Ur Leukocyte Esterase Negative Urine RBC 0-2 Urine WBC 0-5 Ur Squamous Epith Cells 0-2 Calcium Oxalate Crystal Present Urine Bacteria None Seen Hyaline Casts 0-2 Influenza Type A (PCR) Influenza Type B (PCR) RSV RNA Qual (PCR) SARS-CoV-2 RNA (RT-PCR) Assessment and Plan (1) Hypomagnesemia: Status: Acute Plan 79F PMH paroxysmal AFib on Eliquis, CVA, hypertension, hyperlipidemia, diabetes, hypothyroid, GERD, chronic systolic CHF, chronic diarrhea presented with dizziness found to have hypomagnesemia, hypotension Dizziness Rule out CVA, check MRI Monitor telemetry Likely due to orthostatic hypotension due to chronic diarrhea Hold losartan, given IV fluids and blood pressure improved Acute on chronic iron-deficiency anemia Hold Eliquis, monitor hemoglobin, GI eval Paroxysmal AFib Currently in sinus rhythm, holding apixaban as mentioned Diabetes Insulin sliding scale Acute hypomagnesemia Likely due to diarrhea, replace and monitor Hypothyroid TSH slightly low, will decrease to 100 mcg daily Chronic systolic CHF Presented hypovolemic, given IV fluids Cardiology follow up DVT prophylaxis-mechanical due to suspected GI bleed Full Code reason for continued hospitalization: Concern for GI bleed Quality Stroke Does the patient have a stroke diagnosis?: No Reason for No Anti-thrombotic by Day Two: N/A - Med Ordered VTE Prior VTE?: No VTE Risk Level:: Medical - moderate - high VTE Device Contraindication: N/A - Device Ordered VTE Drug Contraindication: N/A - Med Ordered
--- NOTE | 2025-04-03 11:10 | P.CNNE_ITS ---
History of Present Illness Data of Consult Service Date: 04/03/25 Primary Care Provider: Letty Scott MD HPI Reason for consult: Dizziness 79 years old woman with atrial fibrillation on anticoagulation came to hospital for dizziness. She said that dizziness was on and off but could not tell me how long it was going on. There was no associated pain or discomfort. There was no convulsion or shaking. She was not noted to be with any infection or any obvious electrolyte abnormality. She denied taking any new medicine Review of Systems 2 Review of Systems: No recent cold or flu-like illness PMFSH Past Medical History Medical History (Updated 04/02/25 @ 21:44 by Morris Aguirre) Buttock wound Obesity (BMI 30-39.9) Neuropathy Acquired hypothyroidism Mixed hyperlipidemia Essential hypertension Atrial fibrillation Hypothyroidism Obesity Type 2 diabetes mellitus with morbid obesity Annual physical exam Vitamin D deficiency HLD (hyperlipidemia) T2DM (type 2 diabetes mellitus) Diabetes mellitus Hypertension Family History Family History Father Diabetes Mother CHF (congestive heart failure) CVD (cardiovascular disease) Brother HIV (human immunodeficiency virus infection) Surgical History Surgical History (Updated 04/03/25 @ 01:03 by SYDNIE Montoya) H/O hysterectomy for benign disease History of vitrectomy History of surgery History of colonoscopy (~01/28/19) History of appendectomy History of cholecystectomy S/P JOSIE (total abdominal hysterectomy) Social History Social History Household Members: None Housing: Condominium Do you presently have visiting nurse or other home services: No Alcohol intake: current Patient Tobacco Use Status: Former Tobacco user Tobacco use type: Cigarette Years Smoked: 30, started at 10, about 15 cig a day, e-Cigarette/Vaping Use: Currently Using Second Hand Smoke Exposure: Yes Advance Directives: Yes Advance Directives on File: Yes Advance Directives Date on File: 12/15/23 Do you have a plan to hurt others: No Plan Nutrition Risks: No Nutritional Risk Patient : No service: No Current occupational status: retired Cognitive needs: No Hearing needs: No Vision needs: No Travel History Ebola Risk: Travel/Contact With Anyone From Affected Area/s: No Has Patient Experienced Ebola Symptoms: No Meds Allergies Allergy/AdvReac Type Severity Reaction Status Date / Time amoxicillin [Augmentin] Allergy Unknown hives Verified 04/02/25 15:14 clavulanic acid [Augmentin] Allergy Unknown hives Verified 04/02/25 15:14 furosemide Allergy Unknown unknown Verified 04/02/25 15:14 latex [LATEX] Allergy Unknown UNKNOWN Verified 04/02/25 15:14 lisinopril Allergy Unknown Unknown Verified 04/02/25 15:14 oxycodone [Percocet] Allergy Unknown Stomach Verified 04/02/25 15:14 upset tramadol Allergy Unknown Stomach Verified 04/02/25 15:14 uspet Active Medications: Current Medications Acetaminophen (Acetaminophen 325 Mg Tablet) 650 mg PO Q6H PRN PRN Reason: Pain, Mild 1-3,fever,headache Last Admin: 04/03/25 01:10 Dose: 650 mg Atorvastatin Calcium (Atorvastatin Calcium 80 Mg Tablet) 80 mg PO DAILY [facility] Calcium Carbonate (Calcium Carbonate 750 Mg Tab.Chew) 750 mg PO Q4H PRN PRN Reason: Heartburn Cyanocobalamin (Cyanocobalamin (Vitamin B-12) 500 Mcg Tablet) 500 mcg PO DAILY [facility] Dextrose (Dextrose 50 % 25 Gm/50 Ml Syringe) 25 gm IVPUSH Q15M PRN; Protocol PRN Reason: per Hypoglycemia Standing Ord. Ezetimibe (Ezetimibe 10 Mg Tablet) 10 mg PO BEDTIME [facility] Gabapentin (Gabapentin 300 Mg Capsule) 300 mg PO BEDTIME [facility] Glucose (Glucose Gel 15 Gm Gel..Gram.) 15 gm PO Q15M PRN; Protocol PRN Reason: per Hypoglycemia Standing Ord. Insulin Human Lispro (Insulin Lispro 100 Unit/Ml 3 Ml Vial) 0 unit SUBCUT QIDACHS [facility]; Protocol Last Admin: 04/03/25 07:24 Dose: Not Given Levothyroxine Sodium (Levothyroxine Sodium 100 Mcg Tablet) 100 mcg PO DAILY@0600 [facility] Loperamide HCl (Loperamide Hcl 2 Mg Capsule) 2 mg PO Q4H PRN PRN Reason: Constipation Magnesium Hydroxide (Milk Of Magnesia 30 Ml Oral.Susp) 30 ml PO DAILY PRN PRN Reason: Constipation Magnesium Oxide (Magnesium Oxide 400 Mg Tablet) 400 mg PO BID [facility] Melatonin (Melatonin 3 Mg Tablet) 6 mg PO BEDTIME PRN PRN Reason: Insomnia Omeprazole (Omeprazole 20 Mg Capsule.) 20 mg PO DAILY@06 [facility] Last Admin: 04/03/25 06:05 Dose: 20 mg Ondansetron HCl (Ondansetron Hcl 4 Mg/2 Ml Vial) 4 mg IVPUSH Q8H PRN PRN Reason: Nausea and Vomiting Senna (Sennosides 8.6 Mg Tablet) 17.2 mg PO BEDTIME [facility] Sertraline HCl (Sertraline Hcl 50 Mg Tablet) 50 mg PO DAILY [facility] Sodium Chloride (0.9 % Sodium Chloride Flush 3 Ml Syringe) 3 ml IVFLUSH QSHIFT [facility] Last Admin: 04/03/25 08:52 Dose: 3 ml Vitamin D (Cholecalciferol (Vitamin D3) 25 Mcg Tablet) 25 mcg PO DAILY [facility] Home Medications ?Medication ?Instructions ?Recorded ?Confirmed ?Last Taken ?Type cholecalciferol (vitamin D3) 25 25 mcg PO DAILY 12/16/24 04/03/25 04/02/25 History mcg (1,000 unit) tablet (Vitamin D3) cyanocobalamin (vitamin B-12) 250 500 mcg PO DAILY 12/16/24 04/03/25 04/02/25 History mcg tablet diclofenac sodium 1 % topical gel 2 g topical QID PRN Pain 04/03/25 04/03/25 Unknown History gabapentin 300 mg capsule 300 mg PO BEDTIME 04/03/25 04/03/25 04/01/25 History levothyroxine 112 mcg tablet 112 mcg PO DAILY@0600 04/03/25 04/03/25 04/02/25 History loperamide 2 mg capsule 2 mg PO Q4H PRN Constipation 04/03/25 04/03/25 Unknown History omeprazole 20 mg capsule,delayed 20 mg PO DAILY@0630 04/03/25 04/03/25 04/02/25 History release sertraline 50 mg tablet 50 mg PO DAILY 04/03/25 04/03/25 04/02/25 History Physical Exam 2 Vital Signs: Vital Signs: Last Vital Signs Temp 98.0 F 04/03/25 08:42 Pulse 61 04/03/25 08:42 Resp 16 04/03/25 08:42 BP 137/49 L 04/03/25 08:42 Pulse Ox 97 04/03/25 08:42 O2 Del Method Room Air 04/03/25 08:42 O2 Flow Rate 2 04/03/25 00:00 BMI result Body Mass Index 27.5 Neuro: Other: She was sleeping when I arrived. I was able to easily wake her up. She was able to converse and follow commands. Face was symmetrical. Visual mcqueen are full. There was no obvious focal weakness. Results Labs 04/03/25 04:29 04/03/25 04:29 Labs: Short CBC 04/02/25 04/03/25 Range/Units 16:09 04:29 WBC 9.8 7.6 (4.8-10.8) X10*3/uL Hgb 9.3 L 8.4 L (12.0-16.0) g/dl Hct 30.3 L 27.1 L (37.0-47.0) % Plt Count 291 263 (160-400) X10*3/uL BMP 04/02/25 04/03/25 16:09 04:29 Sodium 141 141 Potassium 4.2 3.6 Chloride 108 107 Carbon Dioxide 23 26 BUN 17 H 17 H Creatinine 0.81 0.77 Calcium 9.8 9.2 D Liver Function 04/02/25 04/03/25 Range/Units 16:09 04:29 Total Bilirubin 0.3 0.3 (0.0-1.0) mg/dL AST 37 H 34 H (5-31) U/L ALT 25 24 (0-31) U/L Alkaline Phosphatase 169 H 148 H (39-117) U/L Albumin 3.5 3.2 L (3.5-5.0) g/dL Urine 04/03/25 Range/Units 08:27 Urine Color Yellow Urine Appearance Clear Urine pH 5.5 (5.0-9.0) Ur Specific [place] >= 1.030 H (1.005-1.025) Urine Protein Negative (Neg-Trace) mg/dL Urine Glucose (UA) Negative (Negative) mg/dL CAT scan of brain revealed moderate to severe mostly cortical cerebral atrophy and moderately severe chronic microvascular ischemic changes. This was compared to previous MRI and there was no significant difference. CTA revealed hypoplastic intracranial posterior vasculature but no significant stenosis. Assessment and Plan (1) Dizziness: Status: Acute Nonspecific dizziness with significant cerebral atrophy and microvascular ischemic changes but no obvious electrolyte abnormality or infection. My recommendation is to obtain an EEG to rule out seizure disorder. Procedures Date of Service Date of Service: 04/03/25
--- NOTE | 2025-04-03 12:52 | P.CNGI_ITS ---
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 She did admit to loose stools [place] after eating for alst few years and over last few days has gotten worse. she also noted 1-2 weeks of cramping in the suprpaubic area. No worsening or exacerbating factors. She denies rectal bleeding and melena. no hematuria. appetite has been fair, no recent sick contacts, no suspicious food ingestion. She had colonoscopy 2018 but prep was not good. Review of Systems 2 Review of Systems: Constitutional : No Weight loss, No Fever, No Chills ENT/Mouth : No sore throat, No Rhinorrhea Eyes: No Swelling, No Redness Cardiovascular : No Chest Pain, No SOB, No Edema Respiratory : No Cough, No Sputum, No Wheezing Gastrointestinal : see HPI Genitourinary : NO Dysuria, No Urinary Frequency, No Hematuria, No Urgency Musculoskeletal : + joint pain, No Myalgias, No Joint Swelling Skin : No Skin Lesions, No rash Neuro : No Weakness, No Numbness, No Dizziness, No Headache Psych : No Anxiety/Panic, No Depression Heme/Lymph: No Bruising, No Lymphadenopathy Endocrine : No Polyuria, No Polydipsia All other systems reviewed and are negative. [facility] Past Medical History Medical History (Updated 04/03/25 @ 13:47 by Roverto Morelos MD) Buttock wound Obesity (BMI 30-39.9) Neuropathy Acquired hypothyroidism Mixed hyperlipidemia Essential hypertension Atrial fibrillation Hypothyroidism Obesity Type 2 diabetes mellitus with morbid obesity Annual physical exam Vitamin D deficiency HLD (hyperlipidemia) T2DM (type 2 diabetes mellitus) Diabetes mellitus Hypertension Family History Family History Father Diabetes Mother CHF (congestive heart failure) CVD (cardiovascular disease) Brother HIV (human immunodeficiency virus infection) Surgical History Surgical History (Updated 04/03/25 @ 01:03 by SYDNIE Montoya) H/O hysterectomy for benign disease History of vitrectomy History of surgery History of colonoscopy (~01/28/19) History of appendectomy History of cholecystectomy S/P JOSIE (total abdominal hysterectomy) Social History Social History Household Members: None Housing: Condominium Do you presently have visiting nurse or other home services: No Alcohol intake: current Patient Tobacco Use Status: Former Tobacco user Tobacco use type: Cigarette Years Smoked: 30, started at 10, about 15 cig a day, e-Cigarette/Vaping Use: Currently Using Second Hand Smoke Exposure: Yes Advance Directives: Yes Advance Directives on File: Yes Advance Directives Date on File: 12/15/23 Do you have a plan to hurt others: No Plan Nutrition Risks: No Nutritional Risk Patient : No service: No Current occupational status: retired Cognitive needs: No Hearing needs: No Vision needs: No Travel History Ebola Risk: Travel/Contact With Anyone From Affected Area/s: No Has Patient Experienced Ebola Symptoms: No Meds Allergies Allergy/AdvReac Type Severity Reaction Status Date / Time amoxicillin [Augmentin] Allergy Unknown hives Verified 04/02/25 15:14 clavulanic acid [Augmentin] Allergy Unknown hives Verified 04/02/25 15:14 furosemide Allergy Unknown unknown Verified 04/02/25 15:14 latex [LATEX] Allergy Unknown UNKNOWN Verified 04/02/25 15:14 lisinopril Allergy Unknown Unknown Verified 04/02/25 15:14 oxycodone [Percocet] Allergy Unknown Stomach Verified 04/02/25 15:14 upset tramadol Allergy Unknown Stomach Verified 04/02/25 15:14 uspet Active Medications: Current Medications Acetaminophen (Acetaminophen 325 Mg Tablet) 650 mg PO Q6H PRN PRN Reason: Pain, Mild 1-3,fever,headache Last Admin: 04/03/25 01:10 Dose: 650 mg Atorvastatin Calcium (Atorvastatin Calcium 80 Mg Tablet) 80 mg PO DAILY [facility] Calcium Carbonate (Calcium Carbonate 750 Mg Tab.Chew) 750 mg PO Q4H PRN PRN Reason: Heartburn Cyanocobalamin (Cyanocobalamin (Vitamin B-12) 500 Mcg Tablet) 500 mcg PO DAILY [facility] Dextrose (Dextrose 50 % 25 Gm/50 Ml Syringe) 25 gm IVPUSH Q15M PRN; Protocol PRN Reason: per Hypoglycemia Standing Ord. Ezetimibe (Ezetimibe 10 Mg Tablet) 10 mg PO BEDTIME [facility] Gabapentin (Gabapentin 300 Mg Capsule) 300 mg PO BEDTIME [facility] Glucose (Glucose Gel 15 Gm Gel..Gram.) 15 gm PO Q15M PRN; Protocol PRN Reason: per Hypoglycemia Standing Ord. Insulin Human Lispro (Insulin Lispro 100 Unit/Ml 3 Ml Vial) 0 unit SUBCUT QIDACHS [facility]; Protocol Last Admin: 04/03/25 07:24 Dose: Not Given Levothyroxine Sodium (Levothyroxine Sodium 100 Mcg Tablet) 100 mcg PO DAILY@0600 [facility] Loperamide HCl (Loperamide Hcl 2 Mg Capsule) 2 mg PO Q4H PRN PRN Reason: Constipation Magnesium Hydroxide (Milk Of Magnesia 30 Ml Oral.Susp) 30 ml PO DAILY PRN PRN Reason: Constipation Magnesium Oxide (Magnesium Oxide 400 Mg Tablet) 400 mg PO BID [facility] Melatonin (Melatonin 3 Mg Tablet) 6 mg PO BEDTIME PRN PRN Reason: Insomnia Omeprazole (Omeprazole 20 Mg Capsule.Dr) 20 mg PO DAILY@0630 [facility] Last Admin: 04/03/25 06:05 Dose: 20 mg Ondansetron HCl (Ondansetron Hcl 4 Mg/2 Ml Vial) 4 mg IVPUSH Q8H PRN PRN Reason: Nausea and Vomiting Senna (Sennosides 8.6 Mg Tablet) 17.2 mg PO BEDTIME [facility] Sertraline HCl (Sertraline Hcl 50 Mg Tablet) 50 mg PO DAILY [facility] Sodium Chloride (0.9 % Sodium Chloride Flush 3 Ml Syringe) 3 ml IVFLUSH QSHIFT [facility] Last Admin: 04/03/25 08:52 Dose: 3 ml Vitamin D (Cholecalciferol (Vitamin D3) 25 Mcg Tablet) 25 mcg PO DAILY [facility] Home Medications ?Medication ?Instructions ?Recorded ?Confirmed ?Last Taken ?Type cholecalciferol (vitamin D3) 25 25 mcg PO DAILY 12/16/24 04/03/25 04/02/25 History mcg (1,000 unit) tablet (Vitamin D3) cyanocobalamin (vitamin B-12) 250 500 mcg PO DAILY 12/16/24 04/03/25 04/02/25 History mcg tablet diclofenac sodium 1 % topical gel 2 g topical QID PRN Pain 04/03/25 04/03/25 Unknown History gabapentin 300 mg capsule 300 mg PO BEDTIME 04/03/25 04/03/25 04/01/25 History levothyroxine 112 mcg tablet 112 mcg PO DAILY@0600 04/03/25 04/03/25 04/02/25 History loperamide 2 mg capsule 2 mg PO Q4H PRN Constipation 04/03/25 04/03/25 Unknown History omeprazole 20 mg capsule,delayed 20 mg PO DAILY@0630 04/03/25 04/03/25 04/02/25 History release sertraline 50 mg tablet 50 mg PO DAILY 04/03/25 04/03/25 04/02/25 History Physical Exam 2 Vital Signs: Vital Signs: Last Vital Signs Temp 98.0 F 04/03/25 08:42 Pulse 61 04/03/25 11:07 Resp 16 04/03/25 08:42 BP 137/49 L 04/03/25 11:07 Pulse Ox 97 04/03/25 11:07 O2 Del Method Room Air 04/03/25 08:42 O2 Flow Rate 2 04/03/25 00:00 BMI result Body Mass Index 27.5 EXAM: GENERAL: The patient is relaxed VITAL SIGNS:see workflow HEENT: Nonicteric sclerae, PERRLA, EOMI. Oropharynx clear. Moist mucous membranes. Conjunctivae appear well perfused. No thyroid mass. CHEST: Chest wall is nontender. HEART: Regular rate and rhythm without murmurs. LUNGS: Clear to auscultation bilaterally. ABDOMEN: Soft, positive bowel sounds, nontender, no organomegaly.no flank tenderness SKIN: No rash, no excessive bruising, petechiae, or purpura. NEUROLOGIC: Cranial nerves II-XII intact without motor/sensory deficit. Psych: normal affect Results Labs 04/03/25 04:29 04/03/25 04:29 Labs: Short CBC 04/02/25 04/03/25 Range/Units 16:09 04:29 WBC 9.8 7.6 (4.8-10.8) X10*3/uL Hgb 9.3 L 8.4 L (12.0-16.0) g/dl Hct 30.3 L 27.1 L (37.0-47.0) % Plt Count 291 263 (160-400) X10*3/uL BMP 04/02/25 04/03/25 16:09 04:29 Sodium 141 141 Potassium 4.2 3.6 Chloride 108 107 Carbon Dioxide 23 26 BUN 17 H 17 H Creatinine 0.81 0.77 Calcium 9.8 9.2 D Liver Function 04/02/25 04/03/25 Range/Units 16:09 04:29 Total Bilirubin 0.3 0.3 (0.0-1.0) mg/dL AST 37 H 34 H (5-31) U/L ALT 25 24 (0-31) U/L Alkaline Phosphatase 169 H 148 H (39-117) U/L Albumin 3.5 3.2 L (3.5-5.0) g/dL Urine 04/03/25 Range/Units 08:27 Urine Color Yellow Urine Appearance Clear Urine pH 5.5 (5.0-9.0) Ur Specific [place] >= 1.030 H (1.005-1.025) Urine Protein Negative (Neg-Trace) mg/dL Urine Glucose (UA) Negative (Negative) mg/dL Imaging CT scan - abdomen: Attestation: I personally reviewed and interpreted this imaging study as follows: (atherosclerosis, also near the celiac axis take off, degen spinal disease, diverticulosis ) Assessment and Plan (1) Anemia: Qualifiers: Anemia type: iron deficiency Status: Acute Plan 1/ Acute on chronic iron def anemia - no overt GI bleeding, ? enteropathy, PUD, IBD, neoplasia 2/ Diarrhea as above, also maybe medication effect eg metformin, or from diabetes etc PLAN: 1/ low dose PPI 2/ hold eliquis and plan for EGD and colo on Thu, can eat today and clears tomorrow 3/ check stool GI panel and C diff 4/ hold liraglutide Procedures Date of Service Date of Service: 04/03/25
[2025-04-03 13:19] LABS: Glucose, Whole Blood 79 mg/dL (60-115)
--- NOTE | 2025-04-03 13:52 | P.CDIM_ITS ---
PROVIDER RESPONSE TEXT: To clarify, the appropriate diagnosis supported by the clinical indicators: Pressure (decubitus) ulcer QUERY TEXT: PHYSICIAN'S DOCUMENTATION REQUEST Date of Query: 04/03/2025 01:43 PM EDT Patient Name: Naty Cervantes Admit Date: 04/03/2025 Dear Bernard Chinchilla MD, A review of the medical record indicates additional documentation may be needed. Please review below and update the documentation accordingly. Clinical Indicators: stage 2 L buttock wound in healing stage Based on the above, could you please provide further information regarding the type of ulcer/wound: Pressure (decubitus) ulcer Traumatic wound Other (explain) Clinically unable to determine (explain) Thank you, Lawanda Barahona RN Use of terms such as suspected, likely, concern for, or probable (associated with a specific diagnosi s that is being evaluated, monitored, or treated as if it exists) are acceptable and can be coded in the inpatient se tting, when documented at the time of discharge. Please use your independent medical judgment in providing your response. THIS QUERY IS PART OF THE PERMANENT MEDICAL RECORD
--- NOTE | 2025-04-03 14:39 | P.CONCA_ITS ---
History of Present Illness History of Present Illness Date of Service: 04/03/25 Requesting physician: Bernard Chinchilla Consult reason: atrial fibrillation and other (Dizziness, low blood pressure) Chief complaint: dizziness and weakness Narrative: I was consulted to see Naty in cardiology consultation today for dizziness. Patient is a 79-year-old female with complicated past medical history with history of stroke related to atrial fibrillation chronic anticoagulation, hypertension, hyperlipidemia, LV systolic dysfunction with [id number] LV systolic dysfunction with persistent left-sided weakness from a prior stroke, diabetes. Patient present hospital with dizziness. She says after taking a hot shower she got very dizzy lightheaded. She is living with her daughter right now and who came to help with her and then she had her immediately sit down. She had been persistently dizzy and 911 was called and brought to the emergency room. She said November she had a syncopal episode, not sure as to which hospital she was treated with similar episode where she was after shower and then she fell down and passed out. This was transient. She says she does get episodes of lightheadedness mostly orthostatic in nature. She denies any overt bleeding was noted to have drop in his hematocrit. She has remained in sinus rhythm and do not see any evidence of excellent with junctional rhythm at least on the 12 lead EKGs. She has not had any recurrent atrial fibrillation. Her losartan was withheld due to low blood pressure she has got IV fluid with improvement in his blood pressure. She has not had any heart failure symptoms. Denies any active cardiac symptoms. She says she has longstanding chronic diarrhea probably related to lactose intolerance and is currently avoiding use of milk products. She says she drinks enough water in the day. Review of Systems 2 Constitutional: Constitutional: Denies body ache(s), Denies chills, Reports fatigue, Denies frequent falls and Reports weakness Eyes: Eyes: Reports no additional eye complaints Cardiovascular: Cardiovascular: Denies chest pain, Reports lightheadedness, Denies palpitations and Denies dyspnea Respiratory: Respiratory: Reports no additional respiratory complaints and Denies dyspnea Gastrointestinal: Gastrointestinal: Reports diarrhea Genitourinary: Genitourinary: Reports no additional female genitourinary complaints Musculoskeletal: Musculoskeletal: Reports no additional musculoskeletal complaints Integumentary/Breasts: Skin/Breast: Reports system reviewed and no additional complaints, except as docu Neurologic: Reports system reviewed and no additional complaints, except as documented, Denies frequent falls and Reports weakness Psychiatric: Psychiatric: Reports no additional psychiatric complaints Endocrine: Endocrine: Reports fatigue and Denies palpitations PMFSH Past Medical History Medical History Buttock wound Obesity (BMI 30-39.9) Neuropathy Acquired hypothyroidism Mixed hyperlipidemia Essential hypertension Atrial fibrillation Hypothyroidism Obesity Type 2 diabetes mellitus with morbid obesity Annual physical exam Vitamin D deficiency HLD (hyperlipidemia) T2DM (type 2 diabetes mellitus) Diabetes mellitus Hypertension Family History Family History Father Diabetes Mother CHF (congestive heart failure) CVD (cardiovascular disease) Brother HIV (human immunodeficiency virus infection) Surgical History Surgical History H/O hysterectomy for benign disease History of vitrectomy History of surgery History of colonoscopy (~01/28/19) History of appendectomy History of cholecystectomy S/P JOSIE (total abdominal hysterectomy) Social History Social History Household Members: None Housing: Condominium Do you presently have visiting nurse or other home services: No Alcohol intake: current Patient Tobacco Use Status: Former Tobacco user Tobacco use type: Cigarette Years Smoked: 30, started at 10, about 15 cig a day, e-Cigarette/Vaping Use: Currently Using Second Hand Smoke Exposure: Yes Advance Directives Date on File: 12/15/23 service: No Current occupational status: retired Cognitive needs: No Hearing needs: No Vision needs: No Travel History Ebola Risk: Travel/Contact With Anyone From Affected Area/s: No Has Patient Experienced Ebola Symptoms: No Meds Allergies Allergy/AdvReac Type Severity Reaction Status Date / Time amoxicillin [Augmentin] Allergy Unknown hives Verified 04/02/25 15:14 clavulanic acid [Augmentin] Allergy Unknown hives Verified 04/02/25 15:14 furosemide Allergy Unknown unknown Verified 04/02/25 15:14 latex [LATEX] Allergy Unknown UNKNOWN Verified 04/02/25 15:14 lisinopril Allergy Unknown Unknown Verified 04/02/25 15:14 oxycodone [Percocet] Allergy Unknown Stomach Verified 04/02/25 15:14 upset tramadol Allergy Unknown Stomach Verified 04/02/25 15:14 uspet Active Medications: Current Medications Acetaminophen (Acetaminophen 325 Mg Tablet) 650 mg PO Q6H PRN PRN Reason: Pain, Mild 1-3,fever,headache Last Admin: 04/03/25 01:10 Dose: 650 mg Atorvastatin Calcium (Atorvastatin Calcium 80 Mg Tablet) 80 mg PO DAILY [facility] Calcium Carbonate (Calcium Carbonate 750 Mg Tab.Chew) 750 mg PO Q4H PRN PRN Reason: Heartburn Cyanocobalamin (Cyanocobalamin (Vitamin B-12) 500 Mcg Tablet) 500 mcg PO DAILY [facility] Dextrose (Dextrose 50 % 25 Gm/50 Ml Syringe) 25 gm IVPUSH Q15M PRN; Protocol PRN Reason: per Hypoglycemia Standing Ord. Ezetimibe (Ezetimibe 10 Mg Tablet) 10 mg PO BEDTIME [facility] Gabapentin (Gabapentin 300 Mg Capsule) 300 mg PO BEDTIME [facility] Glucose (Glucose Gel 15 Gm Gel..Gram.) 15 gm PO Q15M PRN; Protocol PRN Reason: per Hypoglycemia Standing Ord. Insulin Human Lispro (Insulin Lispro 100 Unit/Ml 3 Ml Vial) 0 unit SUBCUT QIDACHS [facility]; Protocol Last Admin: 04/03/25 13:20 Dose: Not Given Levothyroxine Sodium (Levothyroxine Sodium 100 Mcg Tablet) 100 mcg PO DAILY@0600 [facility] Loperamide HCl (Loperamide Hcl 2 Mg Capsule) 2 mg PO Q4H PRN PRN Reason: Constipation Magnesium Hydroxide (Milk Of Magnesia 30 Ml Oral.Susp) 30 ml PO DAILY PRN PRN Reason: Constipation Magnesium Oxide (Magnesium Oxide 400 Mg Tablet) 400 mg PO BID [facility] Melatonin (Melatonin 3 Mg Tablet) 6 mg PO BEDTIME PRN PRN Reason: Insomnia Omeprazole (Omeprazole 20 Mg Capsule.Dr) 20 mg PO DAILY@0630 [facility] Last Admin: 04/03/25 06:05 Dose: 20 mg Ondansetron HCl (Ondansetron Hcl 4 Mg/2 Ml Vial) 4 mg IVPUSH Q8H PRN PRN Reason: Nausea and Vomiting Senna (Sennosides 8.6 Mg Tablet) 17.2 mg PO BEDTIME [facility] Sertraline HCl (Sertraline Hcl 50 Mg Tablet) 50 mg PO DAILY [facility] Sodium Chloride (0.9 % Sodium Chloride Flush 3 Ml Syringe) 3 ml IVFLUSH QSHIFT [facility] Last Admin: 04/03/25 08:52 Dose: 3 ml Vitamin D (Cholecalciferol (Vitamin D3) 25 Mcg Tablet) 25 mcg PO DAILY [facility] Home Medications ?Medication ?Instructions ?Recorded ?Confirmed ?Last Taken ?Type cholecalciferol (vitamin D3) 25 25 mcg PO DAILY 12/16/24 04/03/25 04/02/25 History mcg (1,000 unit) tablet (Vitamin D3) cyanocobalamin (vitamin B-12) 250 500 mcg PO DAILY 12/16/24 04/03/25 04/02/25 History mcg tablet diclofenac sodium 1 % topical gel 2 g topical QID PRN Pain 04/03/25 04/03/25 Unknown History gabapentin 300 mg capsule 300 mg PO BEDTIME 04/03/25 04/03/25 04/01/25 History levothyroxine 112 mcg tablet 112 mcg PO DAILY@0600 04/03/25 04/03/25 04/02/25 History loperamide 2 mg capsule 2 mg PO Q4H PRN Constipation 04/03/25 04/03/25 Unknown History omeprazole 20 mg capsule,delayed 20 mg PO DAILY@0630 04/03/25 04/03/25 04/02/25 History release sertraline 50 mg tablet 50 mg PO DAILY 04/03/25 04/03/25 04/02/25 History Physical Exam 2 Vital Signs: Vital Signs: Last Vital Signs Temp 98.0 F 04/03/25 08:42 Pulse 61 04/03/25 11:07 Resp 16 04/03/25 08:42 BP 137/49 L 04/03/25 11:07 Pulse Ox 97 04/03/25 11:07 O2 Del Method Room Air 04/03/25 08:42 O2 Flow Rate 2 04/03/25 00:00 BMI result Body Mass Index 27.5 Const: General: cooperative, comfortable, no acute distress, alert and awake Nutritional Appearance: average body habitus Orientation/consciousness: p atient oriented x3 HEENT: Head: Yes normocephalic and Yes atraumatic Neck: Neck: Yes trachea midline, Yes supple and Yes no JVD Resp: Effort & Inspection: decreased respiratory effort Auscultation: clear to auscultation bilaterally Cardio: Jugular venous distension: no JVD Rate: regular rate Rhythm: r egular rhythm Heart sounds: S1 normal heart sound present, S2 normal heart sound present, no click, no gallops, no murmurs and no rubs GI: Auscultation: normal bowel sounds Skin: General skin exam: no rashes or lesions noted Neuro: General: patient oriented x3 and other (No new neurologic findings) Extrem: General: Yes no clubbing, cyanosis or edema Objective Labs and Meds 04/03/25 04:29 04/03/25 04:29 Lab results: Laboratory Results - last 24 hr 04/02/25 04/03/25 04/03/25 16:09 04:29 07:09 WBC 9.8 7.6 RBC 3.73 L 3.33 L Hgb 9.3 L 8.4 L Hct 30.3 L 27.1 L MCV 81.2 81.4 MCH 24.9 L 25.2 L MCHC 30.7 L 31.0 RDW 14.9 15.0 Plt Count 291 263 MPV 10.9 11.2 Immature Gran % (Auto) 0.4 0.3 Neut % (Auto) 76.8 H 57.1 Lymph % (Auto) 15.8 L 31.7 [place] % (Auto) 6.2 8.9 Eos % (Auto) 0.5 1.6 Baso % (Auto) 0.3 0.4 Lymph # (Auto) 1.6 2.4 [place] # (Auto) 0.6 0.7 Eos # (Auto) 0.1 0.1 Baso # (Auto) 0.0 0.0 Abs Immat Gran (auto) 0.04 H 0.02 Absolute Neuts (auto) 7.5 4.3 Absolute Nucleated RBC 0.000 0.000 Nucleated RBC % (auto) 0.0 0.0 Sodium 141 141 Potassium 4.2 3.6 Chloride 108 107 Carbon Dioxide 23 26 Anion Gap 14 12 BUN 17 H 17 H Creatinine 0.81 0.77 Estim Creat Clear Calc 55.0 57.9 Estimated GFR > 60 > 60 POC Glucose 89 Random Glucose 91 82 Calcium 9.8 9.2 D Phosphorus 1.9 L 2.5 L Magnesium 1.4 L* Iron 28 L TIBC 290 % Saturation 10 L Unsat Iron Binding 262 Total Bilirubin 0.3 0.3 AST 37 H 34 H ALT 25 24 Alkaline Phosphatase 169 H 148 H Troponin I High Sens 15.6 B-Natriuretic Peptide 196 H Total Protein 6.1 L 5.6 L Albumin 3.5 3.2 L Lipase 33 TSH 0.03 L Free T4 1.46 Urine Color Urine Appearance Urine pH Ur Specific [place] Urine Protein Urine Glucose (UA) Urine Ketones Urine Blood Urine Nitrite Ur Leukocyte Esterase Urine RBC Urine WBC Ur Squamous Epith Cells Calcium Oxalate Crystal Urine Bacteria Hyaline Casts Influenza Type A (PCR) NEGATIVE Influenza Type B (PCR) NEGATIVE RSV RNA Qual (PCR) NEGATIVE SARS-CoV-2 RNA (RT-PCR) NEGATIVE 04/03/25 04/03/25 08:27 13:12 WBC RBC Hgb Hct MCV MCH MCHC RDW Plt Count MPV Immature Gran % (Auto) Neut % (Auto) Lymph % (Auto) [place] % (Auto) Eos % (Auto) Baso % (Auto) Lymph # (Auto) [place] # (Auto) Eos # (Auto) Baso # (Auto) Abs Immat Gran (auto) Absolute Neuts (auto) Absolute Nucleated RBC Nucleated RBC % (auto) Sodium Potassium Chloride Carbon Dioxide Anion Gap BUN Creatinine Estim Creat Clear Calc Estimated GFR POC Glucose 79 Random Glucose Calcium Phosphorus Magnesium Iron TIBC % Saturation Unsat Iron Binding Total Bilirubin AST ALT Alkaline Phosphatase Troponin I High Sens B-Natriuretic Peptide Total Protein Albumin Lipase TSH Free T4 Urine Color Yellow Urine Appearance Clear Urine pH 5.5 Ur Specific [place] >= 1.030 H Urine Protein Negative Urine Glucose (UA) Negative Urine Ketones Trace Urine Blood Negative Urine Nitrite Negative Ur Leukocyte Esterase Negative Urine RBC 0-2 Urine WBC 0-5 Ur Squamous Epith Cells 0-2 Calcium Oxalate Crystal Present Urine Bacteria None Seen Hyaline Casts 0-2 Influenza Type A (PCR) Influenza Type B (PCR) RSV RNA Qual (PCR) SARS-CoV-2 RNA (RT-PCR) Assessment and Plan (1) Dizziness: Status: Acute Dizziness supposed to be secondary to orthostatic hypotension. Also noted to be anemic. Possibly intravascular volume depletion and questions cronin chronic bleeding. I would consider transfusing her to hematocrit over 30. Continue IV hydration. Encouraged p.o. oral fluid intake to push it. Orthostatic precautions were discussed. She is likely to autonomic dysfunction related to her age and underlying diabetes. Also possibility of orthostatic hypertension related to just poor overall oral intake to replace her chronic diarrhea is possibility. (2) Paroxysmal atrial fibrillation: Status: Acute Paroxysmal atrial fibrillation with trending downward his hematocrit question chronic GI blood loss. She is on oral anticoagulation has high risk for thromboembolic complication given her prior stroke in the setting of atrial fibrillation. GI consult and possible GI workup as inpatient should be considered. I would transfuse her 2 units of packed RBCs. Resume oral anticoagulation as soon as possible. Continue otherwise rhythm control approach. Will follow with you as need be Procedures Date of Service Date of Service: 04/03/25
--- NOTE | 2025-04-03 15:20 | MHC.CM.PN ---
Addendum entered by Umm Alcantara 04/03/25 15:30: With Patient's permission, CM spoke with Granddaughter/HCP/Milli at listed #; She is in agreement with [facility] and [facility] is her first choice. Milli is agreeable to a local SNF search but does not want referrals to [place], nor [facility] [place]. CM will follow. Original Note: CM met with Patient at bedside, in the ED, and addressed IMM with her; original was given to Patient and a copy will be placed on the chart. Patient takes turns living with her Daughters and Son, at their homes, and her Daughter, who is a Nurse, assists with wound care. Patient has home O2 and she uses a cane most recently, to assist with mobility. PT is recommending [facility] and CM has initiated and will follow for dc planning. PCP is Dr. Letty Scott and transportation is likely to be BLS to [facility]. CM will follow.
--- NOTE | 2025-04-03 15:29 | PC.NURSE ---
Per Dr. Chinchilla will recheck mag level tomorrow.
--- NOTE | 2025-04-03 15:53 | PC.NURSE ---
Per Dr. amaya patient can go to MRI without telemetry monitoring. Mag level will be rechecked tomorrow. Patient en route to MRI now.
[2025-04-03 17:03] LABS: Glucose, Whole Blood 135 mg/dL (60-115)
--- NOTE | 2025-04-03 18:10 | PC.NURSE ---
bladder scanned for 225ml of urine.
[2025-04-03] MEDS: Ezetimibe 10 MG TABLET PO (19:56)
[2025-04-03] MEDS: Magnesium Oxide 400 MG TABLET PO (19:56)
[2025-04-03] MEDS: Gabapentin 300 MG CAPSULE PO (19:57)
[2025-04-03 20:56] LABS: Glucose, Whole Blood 167 mg/dL (60-115)
[2025-04-03] MEDS: Sertraline HCL 50 MG TABLET PO (23:46)
[2025-04-04] VITALS (11 sets, daily range): BP systolic 121–179; BP diastolic 56–88; PULSE 58–80; RESP 14–20; TEMP 36.4–38; O2SAT 94–98; BMI 25.1
--- NOTE | 2025-04-04 00:39 | PC.NURSE ---
Pt. was positioned on her right side and asking to be turned to her left side. Pt. educated regarding skin prevention/turning.
[2025-04-04 06:16] LABS: Anion Gap 13 (12-20); Blood Urea Nitrogen 17 mg/dL (9-16); Calcium 9.2 mg/dL (8.4-10.2); Carbon Dioxide 28 mmol/L (22-29); Chloride 106 mmol/L (96-108); Creatinine Clr Calc Pharmacy 49.2; Estimated Glomerular Filt Rate > 60; Glucose Random 107 mg/dL (60-115); Magnesium 1.5 mg/dL (1.6-2.6); Potassium 3.7 mmol/L (3.3-5.1); Sodium 143 mmol/L (135-145)
[2025-04-04 06:21] LABS: Hematocrit 29.1 % (37.0-47.0); Hemoglobin 8.8 g/dl (12.0-16.0); Mean Corpuscular HGB Conc 30.2 g/dl (31.0-35.0); Mean Corpuscular Hemoglobin 24.3 pg (27.0-33.0); Mean Corpuscular Volume 80.4 fL (80.0-98.0); Mean Platelet Volume 11.1 fL (9.4-12.3); Platelet Count 254 X10*3/uL (160-400); Red Blood Count 3.62 X10*6/uL (4.20-5.50); White Blood Count 7.7 X10*3/uL (4.8-10.8)
[2025-04-04] MEDS: Levothyroxine Sodium 100 MCG TABLET PO (06:30)
[2025-04-04] MEDS: Omeprazole 20 MG CAPSULE.DR PO (06:30)
[2025-04-04 07:49] LABS: Glucose, Whole Blood 115 mg/dL (60-115)
[2025-04-04] MEDS: 0.9 % Sodium Chloride Flush 3 ML SYRINGE IVFLUSH ×3 (08:50→20:10)
[2025-04-04] MEDS: Atorvastatin Calcium 80 MG TABLET PO (08:50)
[2025-04-04] MEDS: Magnesium Oxide 400 MG TABLET PO ×2 (08:50→20:10)
[2025-04-04] MEDS: Magnesium Sulfate/H2O 2 GM/50 ML PIGGYBACK IV (08:50)
[2025-04-04] MEDS: Cholecalciferol (Vitamin D3) 25 MCG TABLET PO (08:50)
[2025-04-04] MEDS: Cyanocobalamin (Vitamin B-12) 500 MCG TABLET PO (08:50)
--- NOTE | 2025-04-04 09:22 | HO.PM.IMPN ---
Subjective Subjective Date of Service: 04/04/25 Interval History: no new complaints Physical Exam Vital Signs: Vital Signs: Last Vital Signs Temp 98.2 F 04/04/25 07:15 Pulse 60 04/04/25 07:15 Resp 14 04/04/25 07:15 BP 138/63 04/04/25 07:15 Pulse Ox 95 04/04/25 07:15 O2 Del Method Room Air 04/04/25 07:15 O2 Flow Rate 2 04/04/25 03:40 BMI result Body Mass Index 25.1 General: AO X 3, no acute distress Resp: CTA bilateral, no accessory muscles used CVS: S1,S2,RRR GI: soft, non tender, non distended Psych: appropriate affect, appropriate insight Objective Data Active Medications Acetaminophen (Acetaminophen 325 Mg Tablet) 650 mg PO Q6H PRN PRN Reason: Pain, Mild 1-3,fever,headache Last Admin: 04/03/25 19:55 Dose: 650 mg Documented By: JASS Atorvastatin Calcium (Atorvastatin Calcium 80 Mg Tablet) 80 mg PO DAILY [facility] Last Admin: 04/04/25 08:50 Dose: 80 mg Documented By: SHIRA Calcium Carbonate (Calcium Carbonate 750 Mg Tab.Chew) 750 mg PO Q4H PRN PRN Reason: Heartburn Cyanocobalamin (Cyanocobalamin (Vitamin B-12) 500 Mcg Tablet) 500 mcg PO DAILY [facility] Last Admin: 04/04/25 08:50 Dose: 500 mcg Documented By: SHIRA Dextrose (Dextrose 50 % 25 Gm/50 Ml Syringe) 25 gm IVPUSH Q15M PRN; Protocol PRN Reason: per Hypoglycemia Standing Ord. Ezetimibe (Ezetimibe 10 Mg Tablet) 10 mg PO BEDTIME [facility] Last Admin: 04/03/25 19:56 Dose: 10 mg Documented By: JASS Gabapentin (Gabapentin 300 Mg Capsule) 300 mg PO BEDTIME [facility] Last Admin: 04/03/25 19:57 Dose: 300 mg Documented By: JASS Glucose (Glucose Gel 15 Gm Gel..Gram.) 15 gm PO Q15M PRN; Protocol PRN Reason: per Hypoglycemia Standing Ord. Insulin Human Lispro (Insulin Lispro 100 Unit/Ml 3 Ml Vial) 0 unit SUBCUT QIDACHS [facility]; Protocol Last Admin: 04/04/25 08:50 Dose: Not Given Documented By: SIHRA Non-Admin Reason: No Insulin Coverage Levothyroxine Sodium (Levothyroxine Sodium 100 Mcg Tablet) 100 mcg PO DAILY@0600 [facility] Last Admin: 04/04/25 06:30 Dose: 100 mcg Documented By: JASS Loperamide HCl (Loperamide Hcl 2 Mg Capsule) 2 mg PO Q4H PRN PRN Reason: Constipation Magnesium Hydroxide (Milk Of Magnesia 30 Ml Oral.Susp) 30 ml PO DAILY PRN PRN Reason: Constipation Magnesium Oxide (Magnesium Oxide 400 Mg Tablet) 400 mg PO BID [facility] Last Admin: 04/04/25 08:50 Dose: 400 mg Documented By: SHIRA Melatonin (Melatonin 3 Mg Tablet) 6 mg PO BEDTIME PRN PRN Reason: Insomnia Omeprazole (Omeprazole 20 Mg Capsule.Dr) 20 mg PO DAILY@0630 [facility] Last Admin: 04/04/25 06:30 Dose: 20 mg Documented By: JASS Ondansetron HCl (Ondansetron Hcl 4 Mg/2 Ml Vial) 4 mg IVPUSH Q8H PRN PRN Reason: Nausea and Vomiting Senna (Sennosides 8.6 Mg Tablet) 17.2 mg PO BEDTIME [facility] Last Admin: 04/03/25 19:57 Dose: Not Given Documented By: JASS Non-Admin Reason: diarhea user acceptance tester./ Sertraline HCl (Sertraline Hcl 50 Mg Tablet) 50 mg PO BEDTIME [facility] Last Admin: 04/03/25 23:46 Dose: 50 mg Documented By: JASS Sodium Chloride (0.9 % Sodium Chloride Flush 3 Ml Syringe) 3 ml IVFLUSH QSHIFT [facility] Last Admin: 04/04/25 08:50 Dose: 3 ml Documented By: SHIRA Vitamin D (Cholecalciferol (Vitamin D3) 25 Mcg Tablet) 25 mcg PO DAILY [facility] Last Admin: 04/04/25 08:50 Dose: 25 mcg Documented By: SHIRA Labs 04/04/25 05:37 04/04/25 05:37 Labs: Laboratory Results - last 24 hr 04/03/25 04/03/25 04/03/25 13:12 17:00 20:47 MCV MCH MCHC RDW Plt Count MPV Absolute Nucleated RBC Nucleated RBC % (auto) Anion Gap Estim Creat Clear Calc Estimated GFR POC Glucose 79 135 H 167 H Random Glucose Calcium Magnesium 04/04/25 04/04/25 05:37 07:18 MCV 80.4 MCH 24.3 L MCHC 30.2 L RDW 15.0 Plt Count 254 MPV 11.1 Absolute Nucleated RBC 0.000 Nucleated RBC % (auto) 0.0 Anion Gap 13 Estim Creat Clear Calc 49.2 Estimated GFR > 60 POC Glucose 115 Random Glucose 107 Calcium 9.2 Magnesium 1.5 L Assessment and Plan (1) Hypomagnesemia: Status: Acute Plan 79F PMH paroxysmal AFib on Eliquis, CVA, hypertension, hyperlipidemia, diabetes, hypothyroid, GERD, chronic systolic CHF, chronic diarrhea presented with dizziness found to have hypomagnesemia, hypotension Dizziness MRI negative for cva Likely due to orthostatic hypotension due to chronic diarrhea, anemia, and diabetic neuropathy Holding losartan, given IV fluids and blood pressure improved Acute on chronic iron-deficiency anemia Holding Eliquis, monitor hemoglobin, will give iv iron, above threshold for transfusion plan for EGD/colonoscopy 04/05/25 Paroxysmal AFib Currently in sinus rhythm, holding apixaban as mentioned would restart apixaban as soon as ok from GI perspective Diabetes Insulin sliding scale Acute hypomagnesemia Likely due to diarrhea, replace and monitor Hypothyroid TSH slightly low, will decrease to 100 mcg daily Chronic systolic CHF Presented hypovolemic, given IV fluids monitor DVT prophylaxis-mechanical due to suspected GI bleed Full Code reason for continued hospitalization: plan for endoscopy Quality Stroke Does the patient have a stroke diagnosis?: No Reason for No Anti-thrombotic by Day Two: N/A - Med Ordered VTE Prior VTE?: No VTE Risk Level:: Medical - moderate - high VTE Device Contraindication: N/A - Device Ordered VTE Drug Contraindication: N/A - Med Ordered
--- NOTE | 2025-04-04 10:36 | PM.PNCARD ---
Subjective Subjective Date of Service: 04/04/25 Principal diagnosis: Anemia, dizziness, paroxysmal atrial fibrillation. Interval history: Patient says since hydration and fluids she is feeling leads dizzy. She has not had any overnight arrhythmias except for PACs. Her oral anticoagulation was held and GI seen and possibly undergoing endoscopy tomorrow. Review of Systems Constitutional: Reports weakness Eyes: Reports no additional eye complaints Reports system reviewed and no additional complaints, except as documented Cardiovascular: Reports no additional cardiovascular complaints Respiratory: Reports no additional respiratory complaints Genitourinary: Reports no additional female genitourinary complaints Musculoskeletal: Reports no additional musculoskeletal complaints Reports weakness Physical Exam Vital Signs: Last Vital Signs Temp 98.2 F 04/04/25 07:15 Pulse 60 04/04/25 10:24 Resp 14 04/04/25 07:15 BP 138/63 04/04/25 10:24 Pulse Ox 95 04/04/25 10:24 O2 Del Method Room Air 04/04/25 07:15 O2 Flow Rate 2 04/04/25 03:40 BMI result Body Mass Index 25.1 Const General: cooperative, comfortable, no acute distress, alert and awake Nutritional Appearance: average body habitus Orientation/consciousness: patient oriented x3 HEENT Head: Yes normocephalic and Yes atraumatic Neck Neck: Yes trachea midline, Yes supple and Yes no JVD Resp Effort & Inspection: decreased respiratory effort Auscultation: clear to auscultation bilaterally Cardio Jugular venous distension: no JVD Rate: regular rate Rhythm: regular rhythm Heart sounds: S1 normal heart sound present, S2 normal heart sound present, no click, no gallops, no murmurs and no rubs GI Auscultation: normal bowel sounds Skin General skin exam: no rashes or lesions noted Neuro General: patient oriented x3 and other (No new neurologic findings) Extrem General: Yes no clubbing, cyanosis or edema Objective Labs and Meds 04/04/25 05:37 04/04/25 05:37 Lab results: Laboratory Results - last 24 hr 04/03/25 04/03/25 04/03/25 13:12 17:00 20:47 WBC RBC Hgb Hct MCV MCH MCHC RDW Plt Count MPV Absolute Nucleated RBC Nucleated RBC % (auto) Sodium Potassium Chloride Carbon Dioxide Anion Gap BUN Creatinine Estim Creat Clear Calc Estimated GFR POC Glucose 79 135 H 167 H Random Glucose Calcium Magnesium 04/04/25 04/04/25 05:37 07:18 WBC 7.7 RBC 3.62 L Hgb 8.8 L Hct 29.1 L MCV 80.4 MCH 24.3 L MCHC 30.2 L RDW 15.0 Plt Count 254 MPV 11.1 Absolute Nucleated RBC 0.000 Nucleated RBC % (auto) 0.0 Sodium 143 Potassium 3.7 Chloride 106 Carbon Dioxide 28 Anion Gap 13 BUN 17 H Creatinine 0.80 Estim Creat Clear Calc 49.2 Estimated GFR > 60 POC Glucose 115 Random Glucose 107 Calcium 9.2 Magnesium 1.5 L Imaging Radiologist's impression: Impressions Brain MRI 04/03/25 16:00 IMPRESSION: 1. No intracranial hemorrhage, mass effect, edema, or acute infarction. 2. 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 Somewhat age advanced cerebral and cerebellar involutional changes. 4. Moderate changes of small vessel ischemia. Electronically signed by: Jordy Bryan MD 04/03/2025 04:41 PM EDT RP Progress Note: A&P Assessment and plan (1) Dizziness: Status: Acute Assessment and Plan: Patient with dizziness most likely orthostatic in nature from probably progressive anemia as well as dehydration from chronic diarrhea. Clinically he is doing well. Check orthostatic vitals. Encouraged to maintain adequate oral hydration. Workup for anemia is needed, see below. No further cardiac workup or indication to do any workup at this point time. (2) Paroxysmal atrial fibrillation: Status: Acute Assessment and Plan: Paroxysmal atrial fibrillation without any recurrence. No significant bradycardia noted. At this point time her oral anticoagulation has been withheld due to progressive anemia. This needs urgent workup as she is high risk for thromboembolic complication. Further treatment based on the findings of the endoscopy if she can be restarted on oral anticoagulation therapy. If long-term oral anticoagulation is not an option consider Watchman device. Will sign of the case. Thank you for allowing me to partake in her care Time Spent With Patient Time: Total time managing care of this patient today ____ minutes. Progress Note: Quality Stroke Does the patient have a stroke diagnosis?: No Reason for No Anti-thrombotic by Day Two: N/A - Med Ordered Procedures Date of Service Date of Service: 04/04/25
[2025-04-04 11:01] LABS: Glucose, Whole Blood 191 mg/dL (60-115)
--- NOTE | 2025-04-04 11:36 | MHC.CLN ---
CONSULT PT WITH INCREASED NUTRITION RISK R/T PRESSURE INJURY CURRENTLY ON C/L DIET NOTED PT REPORTED DIARRHEA X2 MONTHS -GI CONSULT PENDING PT WITH 18% NONSIGNIFICANT WT LOSS X 1 YEAR AND MAY BE CONTRIBUTED TO CHRONIC DIARRHEA. PT REMAINS OBESE FOR HT AND NO S/S MALNUTRITION AT THIS TIME RECOMMEND ADDING GELATEIN TID TO PROMOTE WOUND HEALING SUPP PROVIDES 480KCALS, 60G PROTEIN CAN CHANGE SUPPLEMENT DIET ADVANCES MONITOR PO INTAKE AND ENCOURAGE SUPPLEMENT
[2025-04-04] MEDS: Iron Sucrose Complex 200 MG in 0.9 % Sodium Chloride 100 ML 440 MG IV (11:43)
[2025-04-04] MEDS: Insulin Lispro 100 UNIT/ML 3 ML VIAL SUBCUT (13:03)
--- NOTE | 2025-04-04 14:13 | HO.WOUND ---
Wound Consult: Initial 79yr old? admitted to [facility] [place] [facility] on 04/02/25 - See progress notes and H&P for detailed history.? Wound consult placed for Sacrum and Left Buttock.? Patient agreeable to assessment and photo documentation.? Patient reports she had old injury to the left buttock that was treated with [facility] outpt wound clinic and her granddaughter. She reports site has since healed. Skin assessed and confirms left buttock site is healed. Light purple in color remains intact and blanchable. Left Buttock - Old healed PI site - Light purple intact tissue remains blanchable - protect tissue with foam dressing application. Waffle cushions applied to recliner chair and MISSY pump to be ordered. Coccyx Etiology: ??MASD Present on Admission Wound Bed: red intact pink blanchable tissue Drainage / Odor: None Edges: ? Mirrored Giana wound: [place] intact ? No Induration, Fluctuance or Warmth noted Pain: denies at this time Goals of Treatment: ? Foam dressing to protect from moisture and friction. Recommendations: 1. Turn and Reposition every 2 hours and as needed for patient comfort.? Use pillows or wedges to support off loading positions. 2. Off Load all bony prominences with use of pillows and heel boots if needed.? Apply Preventative foams where needed. ? 3. Monitor for incontinence and moisture control, use barrier creams when needed for prevention and treatment. 4. Provide adequate and supplemental nutrition.? 5. Order low air loss mattress. 6. When applicable maintain blood glucose levels per Providers order. Left Buttock and Sacrum - Off Load Pressure with Q2 hr turns and use of pillows - Apply skin prep allow to dry. Apply Foam dressing to sacrum / coccyx and left buttock (2 foams) peel back and assess Q shift and change every 3 days and PRN. Re-consult wound care Nurse for wound deterioration or wound changes.
[2025-04-04 16:40] LABS: Glucose, Whole Blood 103 mg/dL (60-115)
[2025-04-04] MEDS: PEG 3350/Na Sulf,Bicarb,Cl/KCL 4,000 ML SOLN.RECON 4000 ML PO (18:04)
[2025-04-04] MEDS: Ezetimibe 10 MG TABLET PO (20:10)
[2025-04-04] MEDS: Sennosides 8.6 MG TABLET 17.2 MG PO (20:10)
[2025-04-04] MEDS: Gabapentin 300 MG CAPSULE PO (20:10)
[2025-04-04] MEDS: Sertraline HCL 50 MG TABLET PO (20:10)
[2025-04-04 20:14] LABS: Glucose, Whole Blood 147 mg/dL (60-115)
[2025-04-05] VITALS (11 sets, daily range): BP systolic 111–147; BP diastolic 56–70; PULSE 54–88; RESP 16–20; TEMP 35.9–37.3; O2SAT 94–100; BMI 25.5
[2025-04-05 06:01] LABS: Hematocrit 26.4 % (37.0-47.0); Hemoglobin 8.4 g/dl (12.0-16.0); Mean Corpuscular HGB Conc 31.8 g/dl (31.0-35.0); Mean Corpuscular Hemoglobin 25.1 pg (27.0-33.0); Mean Corpuscular Volume 78.8 fL (80.0-98.0); Mean Platelet Volume 10.7 fL (9.4-12.3); Platelet Count 240 X10*3/uL (160-400); Red Blood Count 3.35 X10*6/uL (4.20-5.50); Red Cell Distribution Width 15.1 % (11.0-16.0); White Blood Count 5.2 X10*3/uL (4.8-10.8)
[2025-04-05] MEDS: Levothyroxine Sodium 100 MCG TABLET PO (06:04)
[2025-04-05] MEDS: Omeprazole 20 MG CAPSULE.DR PO (06:04)
[2025-04-05 06:21] LABS: Anion Gap 13 (12-20); Blood Urea Nitrogen 15 mg/dL (9-16); Calcium 8.7 mg/dL (8.4-10.2); Carbon Dioxide 29 mmol/L (22-29); Chloride 105 mmol/L (96-108); Creatinine Clr Calc Pharmacy 57.7; Estimated Glomerular Filt Rate > 60; Glucose Random 98 mg/dL (60-115); Potassium 3.2 mmol/L (3.3-5.1); Sodium 144 mmol/L (135-145)
[2025-04-05 07:20] LABS: Glucose, Whole Blood 89 mg/dL (60-115)
--- NOTE | 2025-04-05 09:07 | HO.PM.IMPN ---
Subjective Subjective Date of Service: 04/05/25 Interval History: no new complaints no active bleed Physical Exam Vital Signs: Vital Signs: Last Vital Signs Temp 97.7 F 04/05/25 07:27 Pulse 55 04/05/25 07:27 Resp 16 04/05/25 07:27 BP 134/63 04/05/25 07:27 Pulse Ox 100 04/05/25 07:27 O2 Del Method Room Air 04/05/25 07:27 O2 Flow Rate 2 04/05/25 04:00 BMI result Body Mass Index 25.5 General: AO X 3, no acute distress Resp: CTA bilateral, no accessory muscles used CVS: S1,S2,RRR GI: soft, non tender, non distended Psych: appropriate affect, appropriate insight Objective Data Active Medications Acetaminophen (Acetaminophen 325 Mg Tablet) 650 mg PO Q6H PRN PRN Reason: Pain, Mild 1-3,fever,headache Last Admin: 04/03/25 19:55 Dose: 650 mg Documented By: JASS Atorvastatin Calcium (Atorvastatin Calcium 80 Mg Tablet) 80 mg PO DAILY [facility] Last Admin: 04/04/25 08:50 Dose: 80 mg Documented By: SHIRA Calcium Carbonate (Calcium Carbonate 750 Mg Tab.Chew) 750 mg PO Q4H PRN PRN Reason: Heartburn Cyanocobalamin (Cyanocobalamin (Vitamin B-12) 500 Mcg Tablet) 500 mcg PO DAILY [facility] Last Admin: 04/04/25 08:50 Dose: 500 mcg Documented By: SHIRA Dextrose (Dextrose 50 % 25 Gm/50 Ml Syringe) 25 gm IVPUSH Q15M PRN; Protocol PRN Reason: per Hypoglycemia Standing Ord. Ezetimibe (Ezetimibe 10 Mg Tablet) 10 mg PO BEDTIME [facility] Last Admin: 04/04/25 20:10 Dose: 10 mg Documented By: ANTOINC Gabapentin (Gabapentin 300 Mg Capsule) 300 mg PO BEDTIME [facility] Last Admin: 04/04/25 20:10 Dose: 300 mg Documented By: ANTOINC Glucose (Glucose Gel 15 Gm Gel..Gram.) 15 gm PO Q15M PRN; Protocol PRN Reason: per Hypoglycemia Standing Ord. Iron Sucrose 200 mg/ Sodium (Chloride) 110 mls @ 440 mls/hr IV Q24H [facility] Stop: 04/06/25 09:44 Last Infusion: 04/04/25 12:11 Dose: Infused Documented By: SHIRA Insulin Human Lispro (Insulin Lispro 100 Unit/Ml 3 Ml Vial) 0 unit SUBCUT QIDACHS [facility]; Protocol Last Admin: 04/04/25 20:04 Dose: Not Given Documented By: ANTOINC Non-Admin Reason: No Insulin Coverage Levothyroxine Sodium (Levothyroxine Sodium 100 Mcg Tablet) 100 mcg PO DAILY@0600 [facility] Last Admin: 04/05/25 06:04 Dose: 100 mcg Documented By: ANTOINC Loperamide HCl (Loperamide Hcl 2 Mg Capsule) 2 mg PO Q4H PRN PRN Reason: Constipation Magnesium Hydroxide (Milk Of Magnesia 30 Ml Oral.Susp) 30 ml PO DAILY PRN PRN Reason: Constipation Magnesium Oxide (Magnesium Oxide 400 Mg Tablet) 400 mg PO BID [facility] Last Admin: 04/04/25 20:10 Dose: 400 mg Documented By: ANTOINRashid Melatonin (Melatonin 3 Mg Tablet) 6 mg PO BEDTIME PRN PRN Reason: Insomnia Omeprazole (Omeprazole 20 Mg Capsule.Dr) 20 mg PO DAILY@0630 [facility] Last Admin: 04/05/25 06:04 Dose: 20 mg Documented By: ANTOINRashid Ondansetron HCl (Ondansetron Hcl 4 Mg/2 Ml Vial) 4 mg IVPUSH Q8H PRN PRN Reason: Nausea and Vomiting Senna (Sennosides 8.6 Mg Tablet) 17.2 mg PO BEDTIME [facility] Last Admin: 04/04/25 20:10 Dose: 17.2 mg Documented By: ANTOINC Sertraline HCl (Sertraline Hcl 50 Mg Tablet) 50 mg PO BEDTIME [facility] Last Admin: 04/04/25 20:10 Dose: 50 mg Documented By: ANTOINC Sodium Chloride (0.9 % Sodium Chloride Flush 3 Ml Syringe) 3 ml IVFLUSH QSHIFT [facility] Last Admin: 04/04/25 20:10 Dose: 3 ml Documented By: ANTOINC Vitamin D (Cholecalciferol (Vitamin D3) 25 Mcg Tablet) 25 mcg PO DAILY [facility] Last Admin: 04/04/25 08:50 Dose: 25 mcg Documented By: SHIRA Labs 04/05/25 05:41 04/05/25 05:41 Labs: Laboratory Results - last 24 hr 04/04/25 04/04/25 04/04/25 10:55 16:37 20:03 MCV MCH MCHC RDW Plt Count MPV Absolute Nucleated RBC Nucleated RBC % (auto) Anion Gap Estim Creat Clear Calc Estimated GFR POC Glucose 191 H 103 147 H Random Glucose Calcium 04/05/25 04/05/25 05:41 07:14 MCV 78.8 L MCH 25.1 L MCHC 31.8 RDW 15.1 Plt Count 240 MPV 10.7 Absolute Nucleated RBC 0.000 Nucleated RBC % (auto) 0.0 Anion Gap 13 Estim Creat Clear Calc 57.7 Estimated GFR > 60 POC Glucose 89 Random Glucose 98 Calcium 8.7 Assessment and Plan (1) Hypomagnesemia: Status: Acute Plan 79F PMH paroxysmal AFib on Eliquis, CVA, hypertension, hyperlipidemia, diabetes, hypothyroid, GERD, chronic systolic CHF, chronic diarrhea presented with dizziness found to have hypomagnesemia, hypotension Dizziness MRI negative for cva Likely due to orthostatic hypotension due to chronic diarrhea, anemia, and diabetic neuropathy Holding losartan, given IV fluids and blood pressure improved Acute on chronic iron-deficiency anemia Holding Eliquis, monitor hemoglobin, will give iv iron, above threshold for transfusion plan for EGD/colonoscopy 04/05/25 Paroxysmal AFib Currently in sinus rhythm, holding apixaban as mentioned would restart apixaban as soon as ok from GI perspective, if future anticoagulation is not feasible then wathman's device per cardio Diabetes Insulin sliding scale Acute hypomagnesemia Likely due to diarrhea, replace and monitor, last mag 1.5 on 04/04, recheck mag today Hypothyroid TSH slightly low, will decrease to 100 mcg daily Chronic systolic CHF Presented hypovolemic, given IV fluids monitor DVT prophylaxis-mechanical due to suspected GI bleed Full Code reason for continued hospitalization: plan for endoscopy Quality Stroke Does the patient have a stroke diagnosis?: No Reason for No Anti-thrombotic by Day Two: N/A - Med Ordered VTE Prior VTE?: No VTE Risk Level:: Medical - moderate - high VTE Device Contraindication: N/A - Device Ordered VTE Drug Contraindication: N/A - Med Ordered
[2025-04-05 09:34] LABS: Magnesium 1.6 mg/dL (1.6-2.6)
[2025-04-05] MEDS: Cyanocobalamin (Vitamin B-12) 500 MCG TABLET PO (09:52)
[2025-04-05] MEDS: Cholecalciferol (Vitamin D3) 25 MCG TABLET PO (09:52)
[2025-04-05] MEDS: Magnesium Oxide 400 MG TABLET PO ×2 (09:52→21:12)
[2025-04-05] MEDS: Iron Sucrose Complex 200 MG in 0.9 % Sodium Chloride 100 ML 440 MG IV (09:52)
[2025-04-05] MEDS: Atorvastatin Calcium 80 MG TABLET PO (09:52)
--- NOTE | 2025-04-05 11:16 | MHC.CM.PN ---
Per ROUNDS discussion, Patient is not yet medically cleared for dc(IV Iron & plan for Endoscopy); PT is recommending STR and CM will continue to follow.
--- NOTE | 2025-04-05 11:27 | MHC.CLN ---
F/U PT IS CURRENTLY NPO NOTED PT REPORTED DIARRHEA X2 MONTHS -GI CONSULT PENDING PT WITH 18% NONSIGNIFICANT WT LOSS X 1 YEAR AND MAY BE CONTRIBUTED TO CHRONIC DIARRHEA. PT REMAINS OBESE FOR HT AND NO S/S MALNUTRITION AT THIS TIME WOUND NURSE CONSULT REVEALED STAGE 2 TO L BUTTOCK IS HEALED PREVIOUS PO INTAKE 50-100% PRIOR TO NPO WHEN DIET TO RESUME, RECOMMEND 2000DM 2GM NA DIET RD TO FOLLOW WEEKLY
[2025-04-05 11:34] LABS: Glucose, Whole Blood 104 mg/dL (60-115)
--- NOTE | 2025-04-05 11:56 | P.PNGI_ITS ---
Subjective Subjective Date of Service: 04/05/25 Interval History: hgb has been stable no abdominal pain no nausea or vomiting no rectal bleeding or melena Critical Care Time (minutes): 0 Physical Exam 2 Vital Signs: Vital Signs: Last Vital Signs Temp 97.4 F 04/05/25 11:44 Pulse 63 04/05/25 11:44 Resp 18 04/05/25 11:44 BP 139/62 04/05/25 11:44 Pulse Ox 99 04/05/25 11:44 O2 Del Method Room Air 04/05/25 11:44 O2 Flow Rate 2 04/05/25 04:00 BMI result Body Mass Index 25.5 EXAM: GENERAL: The patient is well developed and nontoxic. VITAL SIGNS:see workflow HEENT: Nonicteric sclerae, PERRLA, EOMI. Oropharynx clear. Moist mucous membranes. Conjunctivae appear well perfused. No thyroid mass. CHEST: Chest wall is nontender. HEART: Regular rate and rhythm without murmurs. LUNGS: Clear to auscultation bilaterally. ABDOMEN: Soft, positive bowel sounds, nontender, no organomegaly.no flank tenderness SKIN: No rash, no excessive bruising, petechiae, or purpura. NEUROLOGIC: Cranial nerves II-XII intact without motor/sensory deficit. Psych: normal affect Objective Data Labs 04/05/25 05:41 04/05/25 05:41 Labs: Laboratory Results - last 24 hr 04/04/25 04/04/25 04/05/25 16:37 20:03 05:41 WBC 5.2 RBC 3.35 L Hgb 8.4 L Hct 26.4 L MCV 78.8 L MCH 25.1 L MCHC 31.8 RDW 15.1 Plt Count 240 MPV 10.7 Absolute Nucleated RBC 0.000 Nucleated RBC % (auto) 0.0 Sodium 144 Potassium 3.2 L Chloride 105 Carbon Dioxide 29 Anion Gap 13 BUN 15 Creatinine 0.74 Estim Creat Clear Calc 57.7 Estimated GFR > 60 POC Glucose 103 147 H Random Glucose 98 Calcium 8.7 Magnesium 1.6 04/05/25 04/05/25 07:14 11:25 WBC RBC Hgb Hct MCV MCH MCHC RDW Plt Count MPV Absolute Nucleated RBC Nucleated RBC % (auto) Sodium Potassium Chloride Carbon Dioxide Anion Gap BUN Creatinine Estim Creat Clear Calc Estimated GFR POC Glucose 89 104 Random Glucose Calcium Magnesium Procedures Date of Service Date of Service: 04/05/25 Progress Note: A&P Assessment and plan (1) Anemia: Status: Acute Plan 1/ Anemia, without overt GI bleeding ? underlying neoplasia or mass given age, AVM, IBD, malabsorption PLAN: / - plan for EGD and colo today for assessment, Time Spent With Patient Time: Total time managing care of this patient today ____ minutes. Quality Stroke Does the patient have a stroke diagnosis?: No Reason for No Anti-thrombotic by Day Two: N/A - Med Ordered VTE Prior VTE?: No VTE Risk Level:: Medical - moderate - high VTE Device Contraindication: N/A - Device Ordered VTE Drug Contraindication: N/A - Med Ordered
--- NOTE | 2025-04-05 13:04 | PC.NURSE ---
applied a foam dressing to left buttock area. half dollar in size. repositioned patient. coccyx dressing dry and intact.
--- NOTE | 2025-04-05 13:11 | P.CONAN_ITS ---
[facility] Active Problems Active Problems: All Active Problems Anemia (Acute) Dizziness (Acute) Hypomagnesemia (Acute) Arthritis of left knee (Acute) Dyspnea on exertion (Acute) Buttock wound (Acute) Wound of left buttock (Acute) Pulmonary emphysema (Acute) Vaginal candidiasis (Acute) Obesity (BMI 30-39.9) (Acute) Neuropathy (Acute) Acquired hypothyroidism (Acute) Mixed hyperlipidemia (Acute) Essential hypertension (Acute) Nocturnal hypoxemia (Acute) Paroxysmal atrial fibrillation (Acute) CVA (cerebral vascular accident) (Acute) Status post incision and drainage (Acute) CVA (cerebral vascular accident) (Acute) Influenza A (Acute) Left arm weakness (Acute) Left-sided weakness (Acute) Abscess of skin (Acute) Carpal tunnel syndrome (Acute) COVID-19 (Acute) Bilateral primary osteoarthritis of knee (Acute) Knee pain (Acute) Paresthesia of hand (Acute) Hypothyroidism (Acute) Physical exam (Acute) Neck pain (Acute) Obesity (Acute) Type 2 diabetes mellitus with morbid obesity (Acute) Annual physical exam (Acute) Vitamin D deficiency (Acute) HLD (hyperlipidemia) (Acute) T2DM (type 2 diabetes mellitus) (Acute) Diabetes mellitus (Acute) Hypertension (Acute) Acute sinusitis (Acute) Past Medical History Medical History Buttock wound Obesity (BMI 30-39.9) Neuropathy Acquired hypothyroidism Mixed hyperlipidemia Essential hypertension Atrial fibrillation Hypothyroidism Obesity Type 2 diabetes mellitus with morbid obesity Annual physical exam Vitamin D deficiency HLD (hyperlipidemia) T2DM (type 2 diabetes mellitus) Diabetes mellitus Hypertension Functional capacity: uses cane/walker Family History Family History Father Diabetes Mother CHF (congestive heart failure) CVD (cardiovascular disease) Brother HIV (human immunodeficiency virus infection) Family history of problems with anesthesia: No Surgical History Surgical History H/O hysterectomy for benign disease History of vitrectomy History of surgery History of colonoscopy (~01/28/19) History of appendectomy History of cholecystectomy S/P JOSIE (total abdominal hysterectomy) History of Problems with Anesthesia: No Social History Social History Household Members: Family Housing: Homeless Do you presently have visiting nurse or other home services: No Alcohol intake: current Patient Tobacco Use Status: Former Tobacco user Tobacco use type: Cigarette Years Smoked: 30, started at 10, about 15 cig a day, e-Cigarette/Vaping Use: Currently Using Second Hand Smoke Exposure: Yes Advance Directives Date on File: 12/15/23 service: No Current occupational status: retired Cognitive needs: No Hearing needs: No Vision needs: No Meds Allergies Allergy/AdvReac Type Severity Reaction Status Date / Time amoxicillin [Augmentin] Allergy Unknown hives Verified 04/02/25 15:14 clavulanic acid [Augmentin] Allergy Unknown hives Verified 04/02/25 15:14 furosemide Allergy Unknown unknown Verified 04/02/25 15:14 latex [LATEX] Allergy Unknown UNKNOWN Verified 04/02/25 15:14 lisinopril Allergy Unknown Unknown Verified 04/02/25 15:14 oxycodone [Percocet] Allergy Unknown Stomach Verified 04/02/25 15:14 upset tramadol Allergy Unknown Stomach Verified 04/02/25 15:14 uspet Active Medications: Current Medications Acetaminophen (Acetaminophen 325 Mg Tablet) 650 mg PO Q6H PRN PRN Reason: Pain, Mild 1-3,fever,headache Last Admin: 04/03/25 19:55 Dose: 650 mg Atorvastatin Calcium (Atorvastatin Calcium 80 Mg Tablet) 80 mg PO DAILY [facility] Last Admin: 04/05/25 09:52 Dose: 80 mg Calcium Carbonate (Calcium Carbonate 750 Mg Tab.Chew) 750 mg PO Q4H PRN PRN Reason: Heartburn Cyanocobalamin (Cyanocobalamin (Vitamin B-12) 500 Mcg Tablet) 500 mcg PO DAILY [facility] Last Admin: 04/05/25 09:52 Dose: 500 mcg Dextrose (Dextrose 50 % 25 Gm/50 Ml Syringe) 25 gm IVPUSH Q15M PRN; Protocol PRN Reason: per Hypoglycemia Standing Ord. Ezetimibe (Ezetimibe 10 Mg Tablet) 10 mg PO BEDTIME [facility] Last Admin: 04/04/25 20:10 Dose: 10 mg Gabapentin (Gabapentin 300 Mg Capsule) 300 mg PO BEDTIME [facility] Last Admin: 04/04/25 20:10 Dose: 300 mg Glucose (Glucose Gel 15 Gm Gel..Gram.) 15 gm PO Q15M PRN; Protocol PRN Reason: per Hypoglycemia Standing Ord. Iron Sucrose 200 mg/ Sodium (Chloride) 110 mls @ 440 mls/hr IV Q24H [facility] Stop: 04/06/25 09:44 Last Infusion: 04/05/25 10:07 Dose: Infused Insulin Human Lispro (Insulin Lispro 100 Unit/Ml 3 Ml Vial) 0 unit SUBCUT QIDACHS [facility]; Protocol Last Admin: 04/05/25 10:15 Dose: Not Given Levothyroxine Sodium (Levothyroxine Sodium 100 Mcg Tablet) 100 mcg PO DAILY@0600 [facility] Last Admin: 04/05/25 06:04 Dose: 100 mcg Loperamide HCl (Loperamide Hcl 2 Mg Capsule) 2 mg PO Q4H PRN PRN Reason: Constipation Magnesium Hydroxide (Milk Of Magnesia 30 Ml Oral.Susp) 30 ml PO DAILY PRN PRN Reason: Constipation Magnesium Oxide (Magnesium Oxide 400 Mg Tablet) 400 mg PO BID [facility] Last Admin: 04/05/25 09:52 Dose: 400 mg Melatonin (Melatonin 3 Mg Tablet) 6 mg PO BEDTIME PRN PRN Reason: Insomnia Naloxone HCl (Naloxone Hcl 0.4 Mg/Ml Vial) 0.04 mg IVPUSH Q5M PRN PRN Reason: Excessive sedation or RR < 8 Omeprazole (Omeprazole 20 Mg Capsule.Dr) 20 mg PO DAILY@0630 [facility] Last Admin: 04/05/25 06:04 Dose: 20 mg Ondansetron HCl (Ondansetron Hcl 4 Mg/2 Ml Vial) 4 mg IVPUSH Q8H PRN PRN Reason: Nausea and Vomiting Senna (Sennosides 8.6 Mg Tablet) 17.2 mg PO BEDTIME [facility] Last Admin: 04/04/25 20:10 Dose: 17.2 mg Sertraline HCl (Sertraline Hcl 50 Mg Tablet) 50 mg PO BEDTIME [facility] Last Admin: 04/04/25 20:10 Dose: 50 mg Sodium Chloride (0.9 % Sodium Chloride Flush 3 Ml Syringe) [facility] Last Admin: 04/05/25 10:16 Dose: Not Given Vitamin D (Cholecalciferol (Vitamin D3) 25 Mcg Tablet) 25 mcg PO DAILY [facility] Last Admin: 04/05/25 09:52 Dose: 25 mcg Home Medications ?Medication ?Instructions ?Recorded ?Confirmed ?Last Taken ?Type cholecalciferol (vitamin D3) 25 25 mcg PO DAILY 12/16/24 04/03/25 04/02/25 History mcg (1,000 unit) tablet (Vitamin D3) cyanocobalamin (vitamin B-12) 250 500 mcg PO DAILY 12/16/24 04/03/25 04/02/25 History mcg tablet diclofenac sodium 1 % topical gel 2 g topical QID PRN Pain 04/03/25 04/03/25 Unknown History gabapentin 300 mg capsule 300 mg PO BEDTIME 04/03/25 04/03/25 04/01/25 History levothyroxine 112 mcg tablet 112 mcg PO DAILY@0600 04/03/25 04/03/25 04/02/25 History loperamide 2 mg capsule 2 mg PO Q4H PRN Constipation 04/03/25 04/03/25 Unknown History omeprazole 20 mg capsule,delayed 20 mg PO DAILY@0630 04/03/25 04/03/25 04/02/25 History release sertraline 50 mg tablet 50 mg PO DAILY 04/03/25 04/03/25 04/02/25 History Exam Height,Weight and Vital Signs: Height 5 ft 4 in Weight 67.3 kg Last Vital Signs Temp 98.8 F 04/05/25 12:38 Pulse 77 04/05/25 12:38 Resp 16 04/05/25 12:38 BP 133/62 04/05/25 12:38 Pulse Ox 98 04/05/25 12:38 O2 Del Method Nasal Cannula 04/05/25 12:38 O2 Flow Rate 2 04/05/25 12:38 Pertinent Lab Results Pertinent Lab Results: Laboratory Tests 04/02/25 04/03/25 04/03/25 16:09 04:29 07:09 WBC 9.8 7.6 RBC 3.73 L 3.33 L Hgb 9.3 L 8.4 L Hct 30.3 L 27.1 L MCV 81.2 81.4 MCH 24.9 L 25.2 L MCHC 30.7 L 31.0 RDW 14.9 15.0 Plt Count 291 263 MPV 10.9 11.2 Immature Gran % (Auto) 0.4 0.3 Neut % (Auto) 76.8 H 57.1 Lymph % (Auto) 15.8 L 31.7 Barnes % (Auto) 6.2 8.9 Eos % (Auto) 0.5 1.6 Baso % (Auto) 0.3 0.4 Lymph # (Auto) 1.6 2.4 Barnes # (Auto) 0.6 0.7 Eos # (Auto) 0.1 0.1 Baso # (Auto) 0.0 0.0 Abs Immat Gran (auto) 0.04 H 0.02 Absolute Neuts (auto) 7.5 4.3 Absolute Nucleated RBC 0.000 0.000 Nucleated RBC % (auto) 0.0 0.0 Sodium 141 141 Potassium 4.2 3.6 Chloride 108 107 Carbon Dioxide 23 26 Anion Gap 14 12 BUN 17 H 17 H Creatinine 0.81 0.77 Estim Creat Clear Calc 55.0 57.9 Estimated GFR > 60 > 60 POC Glucose 89 Random Glucose 91 82 Calcium 9.8 9.2 D Phosphorus 1.9 L 2.5 L Magnesium 1.4 L* Iron 28 L TIBC 290 % Saturation 10 L Unsat Iron Binding 262 Total Bilirubin 0.3 0.3 AST 37 H 34 H ALT 25 24 Alkaline Phosphatase 169 H 148 H Troponin I High Sens 15.6 B-Natriuretic Peptide 196 H Total Protein 6.1 L 5.6 L Albumin 3.5 3.2 L Lipase 33 TSH 0.03 L Free T4 1.46 Urine Color Urine Appearance Urine pH Ur Specific [place] Urine Protein Urine Glucose (UA) Urine Ketones Urine Blood Urine Nitrite Ur Leukocyte Esterase Urine RBC Urine WBC Ur Squamous Epith Cells Calcium Oxalate Crystal Urine Bacteria Hyaline Casts Influenza Type A (PCR) NEGATIVE Influenza Type B (PCR) NEGATIVE RSV RNA Qual (PCR) NEGATIVE SARS-CoV-2 RNA (RT-PCR) NEGATIVE 04/03/25 04/03/25 04/03/25 08:27 13:12 17:00 WBC RBC Hgb Hct MCV MCH MCHC RDW Plt Count MPV Immature Gran % (Auto) Neut % (Auto) Lymph % (Auto) Barnes % (Auto) Eos % (Auto) Baso % (Auto) Lymph # (Auto) Barnes # (Auto) Eos # (Auto) Baso # (Auto) Abs Immat Gran (auto) Absolute Neuts (auto) Absolute Nucleated RBC Nucleated RBC % (auto) Sodium Potassium Chloride Carbon Dioxide Anion Gap BUN Creatinine Estim Creat Clear Calc Estimated GFR POC Glucose 79 135 H Random Glucose Calcium Phosphorus Magnesium Iron TIBC % Saturation Unsat Iron Binding Total Bilirubin AST ALT Alkaline Phosphatase Troponin I High Sens B-Natriuretic Peptide Total Protein Albumin Lipase TSH Free T4 Urine Color Yellow Urine Appearance Clear Urine pH 5.5 Ur Specific [place] >= 1.030 H Urine Protein Negative Urine Glucose (UA) Negative Urine Ketones Trace Urine Blood Negative Urine Nitrite Negative Ur Leukocyte Esterase Negative Urine RBC 0-2 Urine WBC 0-5 Ur Squamous Epith Cells 0-2 Calcium Oxalate Crystal Present Urine Bacteria None Seen Hyaline Casts 0-2 Influenza Type A (PCR) Influenza Type B (PCR) RSV RNA Qual (PCR) SARS-CoV-2 RNA (RT-PCR) 04/03/25 04/04/25 04/04/25 20:47 05:37 07:18 WBC 7.7 RBC 3.62 L Hgb 8.8 L Hct 29.1 L MCV 80.4 MCH 24.3 L MCHC 30.2 L RDW 15.0 Plt Count 254 MPV 11.1 Immature Gran % (Auto) Neut % (Auto) Lymph % (Auto) Barnes % (Auto) Eos % (Auto) Baso % (Auto) Lymph # (Auto) Barnes # (Auto) Eos # (Auto) Baso # (Auto) Abs Immat Gran (auto) Absolute Neuts (auto) Absolute Nucleated RBC 0.000 Nucleated RBC % (auto) 0.0 Sodium 143 Potassium 3.7 Chloride 106 Carbon Dioxide 28 Anion Gap 13 BUN 17 H Creatinine 0.80 Estim Creat Clear Calc 49.2 Estimated GFR > 60 POC Glucose 167 H 115 Random Glucose 107 Calcium 9.2 Phosphorus Magnesium 1.5 L Iron TIBC % Saturation Unsat Iron Binding Total Bilirubin AST ALT Alkaline Phosphatase Troponin I High Sens B-Natriuretic Peptide Total Protein Albumin Lipase TSH Free T4 Urine Color Urine Appearance Urine pH Ur Specific [place] Urine Protein Urine Glucose (UA) Urine Ketones Urine Blood Urine Nitrite Ur Leukocyte Esterase Urine RBC Urine WBC Ur Squamous Epith Cells Calcium Oxalate Crystal Urine Bacteria Hyaline Casts Influenza Type A (PCR) Influenza Type B (PCR) RSV RNA Qual (PCR) SARS-CoV-2 RNA (RT-PCR) 04/04/25 04/04/25 04/04/25 10:55 16:37 20:03 WBC RBC Hgb Hct MCV MCH MCHC RDW Plt Count MPV Immature Gran % (Auto) Neut % (Auto) Lymph % (Auto) Barnes % (Auto) Eos % (Auto) Baso % (Auto) Lymph # (Auto) Barnes # (Auto) Eos # (Auto) Baso # (Auto) Abs Immat Gran (auto) Absolute Neuts (auto) Absolute Nucleated RBC Nucleated RBC % (auto) Sodium Potassium Chloride Carbon Dioxide Anion Gap BUN Creatinine Estim Creat Clear Calc Estimated GFR POC Glucose 191 H 103 147 H Random Glucose Calcium Phosphorus Magnesium Iron TIBC % Saturation Unsat Iron Binding Total Bilirubin AST ALT Alkaline Phosphatase Troponin I High Sens B-Natriuretic Peptide Total Protein Albumin Lipase TSH Free T4 Urine Color Urine Appearance Urine pH Ur Specific [place] Urine Protein Urine Glucose (UA) Urine Ketones Urine Blood Urine Nitrite Ur Leukocyte Esterase Urine RBC Urine WBC Ur Squamous Epith Cells Calcium Oxalate Crystal Urine Bacteria Hyaline Casts Influenza Type A (PCR) Influenza Type B (PCR) RSV RNA Qual (PCR) SARS-CoV-2 RNA (RT-PCR) 04/05/25 04/05/25 04/05/25 05:41 07:14 11:25 WBC 5.2 RBC 3.35 L Hgb 8.4 L Hct 26.4 L MCV 78.8 L MCH 25.1 L MCHC 31.8 RDW 15.1 Plt Count 240 MPV 10.7 Immature Gran % (Auto) Neut % (Auto) Lymph % (Auto) Barnes % (Auto) Eos % (Auto) Baso % (Auto) Lymph # (Auto) Barnes # (Auto) Eos # (Auto) Baso # (Auto) Abs Immat Gran (auto) Absolute Neuts (auto) Absolute Nucleated RBC 0.000 Nucleated RBC % (auto) 0.0 Sodium 144 Potassium 3.2 L Chloride 105 Carbon Dioxide 29 Anion Gap 13 BUN 15 Creatinine 0.74 Estim Creat Clear Calc 57.7 Estimated GFR > 60 POC Glucose 89 104 Random Glucose 98 Calcium 8.7 Phosphorus Magnesium 1.6 Iron TIBC % Saturation Unsat Iron Binding Total Bilirubin AST ALT Alkaline Phosphatase Troponin I High Sens B-Natriuretic Peptide Total Protein Albumin Lipase TSH Free T4 Urine Color Urine Appearance Urine pH Ur Specific [place] Urine Protein Urine Glucose (UA) Urine Ketones Urine Blood Urine Nitrite Ur Leukocyte Esterase Urine RBC Urine WBC Ur Squamous Epith Cells Calcium Oxalate Crystal Urine Bacteria Hyaline Casts Influenza Type A (PCR) Influenza Type B (PCR) RSV RNA Qual (PCR) SARS-CoV-2 RNA (RT-PCR) Airway Mallampati Class: I TM Dist: >3cm Neck ROM: Full Heart: rrr Lungs: diminished at base Assessment and Plan Assessment Anesthesia Assessment: Anesthesia Plan Discussed and Chart Reviewed Final Anesthetic Review Family History of Problems with Anesthesia: No History of Problems with Anesthesia: No NPO: Yes ASA Class: III Final Preanesthetic Review: No Changes in Pt Med Stat, Meds/Allgs Chart Reviewed and Consent Obtained/Reviewed Patient Risk: Intermediate Procedure Risk: Intermediate Anesthetic Plan Anesthetic Plan: MAC: Disposition: Standard PACU
--- NOTE | 2025-04-05 13:14 | MHC.SHP ---
Pre-Procedural Eval Section A - 24 Hr Update-Section A only Date of Service: 04/05/25 The patient is an INPATIENT: Yes The patient has been examined within 24 hours of the surgical procedure. The History & Physical has been completed within 30 days and I have reviewed it.: Yes Section B - Complete if H&P > 30 days Chief Complaint: dizziness and weakness Allergies: Allergies Allergy/AdvReac Type Severity Reaction Status Date / Time amoxicillin [Augmentin] Allergy Unknown hives Verified 04/02/25 15:14 clavulanic acid [Augmentin] Allergy Unknown hives Verified 04/02/25 15:14 furosemide Allergy Unknown unknown Verified 04/02/25 15:14 latex [LATEX] Allergy Unknown UNKNOWN Verified 04/02/25 15:14 lisinopril Allergy Unknown Unknown Verified 04/02/25 15:14 oxycodone [Percocet] Allergy Unknown Stomach Verified 04/02/25 15:14 upset tramadol Allergy Unknown Stomach Verified 04/02/25 15:14 uspet Plan Diagnosis/Plan: Unchanged I have reviewed the history and physical and performed a pertinent physical examination on my patient. No changes have occurred unless specified. Time Spent With Patient Time: Total time managing care of this patient today ____ minutes.
--- NOTE | 2025-04-05 14:16 | P.OPN-COLO_ITS ---
Colonoscopy Operative Note Operative Note Date of Service: 04/05/25 Narrative: Operative Information Procedure Description: EGD, Colonoscopy Indication: anemia Anesthesia: MAC FLEXIBLE TRANSORAL UPPER GASTROINTESTINAL ENDOSCOPY AND COLONOSCOPY PROCEDURE NOTE UPPER ENDOSCOPY Consent: Indications for the procedure and potential complications of bleeding, perforation, reaction to medications and missed diagnosis were discussed with the patient and informed consent was obtained. Instrument: Olympus GIF H 190 J mid size upper endoscope Monitoring: Vital signs and clinical assessment, continuous EKG monitoring, Pulse oximetry, Carbon Dioxide monitoring and blood pressure monitoring were done throughout the procedure. Procedure: The patient was placed in the left lateral decubitis position and pre-procedure medications were administered and a bite block was placed. The endoscope was inserted into the mouth and advanced under direct vision to the third part of duodenum. A careful inspection was made as the upper endoscope was withdrawn including a retroflexed examination of the proximal stomach; Findings and interventions are described below. Findings: Larynx:normal Esophagus: GE junction at 34 cm, diaphragm hiatus at 36 cm, consistent with small hiatal hernia,, schatzki ring noted as well Stomach: Mild erythema. Biopsies were obtained. Grade 2 flap valve on retroflexed examination of the cardia. Duodenum: Normal bulb and descending duodenum, bx taken Intervention: Biopsies as noted above, COLONOSCOPY Instrument: Olympus variable stiffness pediatric scope 190L Colonoscopy Monitoring: Vital signs and clinical assessment, continuous EKG monitoring, Pulse oximetry, Carbon Dioxide monitoring and blood pressure monitoring were done throughout the procedure. Colon withdrawal time was 8 minutes. Procedure: The patient was placed in the left lateral decubitis position and pre-procedure medications were administered. After a digital rectal examination of the ano-rectum, the video colonoscope was inserted into the rectum and advanced through the colon to the cecum/TI. The colonoscope was slowly withdrawn in a retrograde panoramic fashion and the colon mucosa was carefully examined including a retroflexed view of the rectum. Findings and interventions are described below. Procedure Difficulty: difficult, redundant colon -pressure applied with 2 people Findings: Terminal Ileum-normal Cecum:normal Retroflexion- right sided- normal Ascending Colon: normal Transverse Colon -normal Descending Colon:normal Sigmoid Colon: severe diverticulosis Rectum: Retroflexion with small internal hemorrhoids, grade I Anorectum - normal Colon preparation: [place] Bowel Preparation Scale Right colon; 2 Transverse colon: 2 Left colon; 2 (0 = Unprepared colon segment with mucosa not seen due to solid stool that cannot be cleared. 1 = Portion of mucosa of the colon segment seen, but other areas of the colon segment not well seen due to staining, residual stool and/or opaque liquid. 2 = Minor amount of residual staining, small fragments of stool and/or opaque liquid, but mucosa of colon segment seen well. 3 = Entire mucosa of colon segment seen well with no residual staining, small fragments of stool or opaque liquid) Impression and Post Procedure Diagnosis: Endoscopy Findings: hiatal hernia schatzki ring Colonoscopy Findings: diverticulosis internal hemorrhoids Plan: Await Pathology results Repeat Colonoscopy if clinically indicated High fiber diet leaflet avoid straining at stool, epsom salts and sitz bath, anusol supps or cream outpatient capsule endoscopy, no active source of bleeding seen - no lesions or masses can restart apixiban Above findings were reviewed with the patient and relevant handouts were provided if indicated.
[2025-04-05 16:31] LABS: Glucose, Whole Blood 101 mg/dL (60-115)
[2025-04-05] MEDS: 0.9 % Sodium Chloride Flush 3 ML SYRINGE IVFLUSH ×2 (18:41→21:12)
[2025-04-05 21:05] LABS: Glucose, Whole Blood 188 mg/dL (60-115)
[2025-04-05] MEDS: Sertraline HCL 50 MG TABLET PO (21:12)
[2025-04-05] MEDS: Gabapentin 300 MG CAPSULE PO (21:12)
[2025-04-05] MEDS: Ezetimibe 10 MG TABLET PO (21:12)
[2025-04-05] MEDS: Insulin Lispro 100 UNIT/ML 3 ML VIAL SUBCUT (21:13)
[2025-04-06] VITALS (11 sets, daily range): BP systolic 112–166; BP diastolic 56–70; PULSE 61–99; RESP 15–20; TEMP 36.4–36.9; O2SAT 93–99; BMI 25.2
--- NOTE | 2025-04-06 | EEG_ITS ---
This is a 16-channel EEG with an EKG lead. The patient is reported awake during the tracing. Background EEG rhythm is about 10 hertz 5 to 20 microvolt posteriorly, lower amplitude fast anteriorly. Frequent lead and muscle artifacts are noted. Photic stimulation does not produce any significant abnormality. Hyperventilation is not performed. Cardiac lead does not reveal any significant abnormality. No sharp wave spikes or paroxysmal tendency noted. IMPRESSION: Unremarkable EEG. MD ADRI Lee/KATERIN / [id number]
[2025-04-06] MEDS: Omeprazole 20 MG CAPSULE.DR PO (06:14)
[2025-04-06] MEDS: Levothyroxine Sodium 100 MCG TABLET PO (06:14)
[2025-04-06 07:48] LABS: Glucose, Whole Blood 127 mg/dL (60-115)
[2025-04-06] MEDS: Magnesium Oxide 400 MG TABLET PO ×2 (09:28→20:27)
[2025-04-06] MEDS: Atorvastatin Calcium 80 MG TABLET PO (09:28)
[2025-04-06] MEDS: Cholecalciferol (Vitamin D3) 25 MCG TABLET PO (09:28)
[2025-04-06] MEDS: Cyanocobalamin (Vitamin B-12) 500 MCG TABLET PO (09:29)
[2025-04-06] MEDS: Iron Sucrose Complex 200 MG in 0.9 % Sodium Chloride 100 ML 440 MG IV (09:29)
[2025-04-06] MEDS: 0.9 % Sodium Chloride Flush 3 ML SYRINGE IVFLUSH ×3 (09:31→20:28)
[2025-04-06 11:17] LABS: Glucose, Whole Blood 353 mg/dL (60-115)
[2025-04-06] MEDS: Psyllium seed 3.7 GM PACKET PO (12:01)
[2025-04-06] MEDS: Insulin Lispro 100 UNIT/ML 3 ML VIAL SUBCUT ×3 (12:02→20:27)
--- NOTE | 2025-04-06 12:44 | HO.PM.IMPN ---
Subjective Subjective Date of Service: 04/06/25 Interval History: Seen and evaluated this morning EGD and Colonoscopy negative for any source of bleeding Hb stable above 8 no reported bleeding overnight able to ambulate with no dizziness Review of Systems Review of Systems: Yes all other systems are reviewed and are negative Physical Exam Vital Signs: Vital Signs: Last Vital Signs Temp 97.5 F 04/06/25 11:12 Pulse 82 04/06/25 11:12 Resp 15 04/06/25 11:12 BP 126/56 L 04/06/25 11:12 Pulse Ox 97 04/06/25 11:12 O2 Del Method Room Air 04/06/25 11:12 O2 Flow Rate 2 04/06/25 07:09 BMI result Body Mass Index 25.2 Const: Other: Constitutional : Awake, interactive, not in distress Neck : Normal inspection, Supple Cardiovascular : RRR, no JVP, no lower extremity edema Respiratory : good bilateral air entry, no crackles, wheezes or rhonchi Gastrointestinal: soft, lax, Normal bowel sounds, Non tender Skin : Warm, Dry Neurological : Alert & oriented x3, No focal deficit Objective Data Active Medications Acetaminophen (Acetaminophen 325 Mg Tablet) 650 mg PO Q6H PRN PRN Reason: Pain, Mild 1-3,fever,headache Last Admin: 04/03/25 19:55 Dose: 650 mg Documented By: JASS Apixaban (Apixaban 5 Mg Tablet) 5 mg PO BID [facility] Atorvastatin Calcium (Atorvastatin Calcium 80 Mg Tablet) 80 mg PO DAILY [facility] Last Admin: 04/06/25 09:28 Dose: 80 mg Documented By: YANG Calcium Carbonate (Calcium Carbonate 750 Mg Tab.Chew) 750 mg PO Q4H PRN PRN Reason: Heartburn Cyanocobalamin (Cyanocobalamin (Vitamin B-12) 500 Mcg Tablet) 500 mcg PO DAILY [facility] Last Admin: 04/06/25 09:29 Dose: 500 mcg Documented By: YANG Dextrose (Dextrose 50 % 25 Gm/50 Ml Syringe) 25 gm IVPUSH Q15M PRN; Protocol PRN Reason: per Hypoglycemia Standing Ord. Ezetimibe (Ezetimibe 10 Mg Tablet) 10 mg PO BEDTIME [facility] Last Admin: 04/05/25 21:12 Dose: 10 mg Documented By: ANTOINC Gabapentin (Gabapentin 300 Mg Capsule) 300 mg PO BEDTIME [facility] Last Admin: 04/05/25 21:12 Dose: 300 mg Documented By: BERONICA Glucose (Glucose Gel 15 Gm Gel..Gram.) 15 gm PO Q15M PRN; Protocol PRN Reason: per Hypoglycemia Standing Ord. Insulin Human Lispro (Insulin Lispro 100 Unit/Ml 3 Ml Vial) 0 unit SUBCUT QIDACHS [facility]; Protocol Last Admin: 04/06/25 12:02 Dose: 10 unit Documented By: YANG Levothyroxine Sodium (Levothyroxine Sodium 100 Mcg Tablet) 100 mcg PO DAILY@0600 [facility] Last Admin: 04/06/25 06:14 Dose: 100 mcg Documented By: BERONICA Loperamide HCl (Loperamide Hcl 2 Mg Capsule) 2 mg PO Q4H PRN PRN Reason: Constipation Magnesium Hydroxide (Milk Of Magnesia 30 Ml Oral.Susp) 30 ml PO DAILY PRN PRN Reason: Constipation Magnesium Oxide (Magnesium Oxide 400 Mg Tablet) 400 mg PO BID [facility] Last Admin: 04/06/25 09:28 Dose: 400 mg Documented By: YANG Melatonin (Melatonin 3 Mg Tablet) 6 mg PO BEDTIME PRN PRN Reason: Insomnia Naloxone HCl (Naloxone Hcl 0.4 Mg/Ml Vial) 0.04 mg IVPUSH Q5M PRN PRN Reason: Excessive sedation or RR < 8 Omeprazole (Omeprazole 20 Mg Capsule.Dr) 20 mg PO DAILY@0630 [facility] Last Admin: 04/06/25 06:14 Dose: 20 mg Documented By: BERONICA Ondansetron HCl (Ondansetron Hcl 4 Mg/2 Ml Vial) 4 mg IVPUSH Q8H PRN PRN Reason: Nausea and Vomiting Psyllium Hydrophilic Mucilloid (Psyllium Seed 3.7 Gm Packet) 3.7 gm PO DAILY [facility] Last Admin: 04/06/25 12:01 Dose: 3.7 gm Documented By: YANG Senna (Sennosides 8.6 Mg Tablet) 17.2 mg PO BEDTIME [facility] Last Admin: 04/05/25 21:13 Dose: Not Given Documented By: BERONICA Non-Admin Reason: Patient Refused Sertraline HCl (Sertraline Hcl 50 Mg Tablet) 50 mg PO BEDTIME [facility] Last Admin: 04/05/25 21:12 Dose: 50 mg Documented By: ANTOINRashid Sodium Chloride (0.9 % Sodium Chloride Flush 3 Ml Syringe) 3 ml IVFLUSH QSHIFT [facility] Last Admin: 04/06/25 09:31 Dose: 3 ml Documented By: YANG Vitamin D (Cholecalciferol (Vitamin D3) 25 Mcg Tablet) 25 mcg PO DAILY [facility] Last Admin: 04/06/25 09:28 Dose: 25 mcg Documented By: YANG Labs 04/05/25 05:41 04/05/25 05:41 Labs: Laboratory Results - last 24 hr 04/05/25 04/05/25 04/06/25 16:27 20:58 07:43 POC Glucose 101 188 H 127 H 04/06/25 11:12 POC Glucose 353 H* Assessment and Plan (1) Hypomagnesemia: Status: Acute (2) Dizziness: Status: Acute (3) Acute on chronic anemia: Status: Acute Plan 79F PMH paroxysmal AFib on Eliquis, CVA, hypertension, hyperlipidemia, diabetes, hypothyroid, GERD, chronic systolic CHF, chronic diarrhea presented with dizziness found to have hypomagnesemia, hypotension Dizziness MRI negative for cva could be due to orthostatic hypotension or symptomatic anemia, and diabetic neuropathy Holding losartan, given IV fluids and blood pressure improved but still running soft Neurology rec EEG, will be done follow on orthostatic pressures Acute on chronic iron-deficiency anemia Holding Eliquis, monitor hemoglobin, will give iv iron, above threshold for transfusion EGD/colonoscopy 04/05/25 negative for source of bleeding, showing hiatal hernia, internal hemorroids and diverticulosis high fiber diet to get Capsule endoscopy as outpatient restart Eliquis Paroxysmal AFib Currently in sinus rhythm, restarting apixaban no plans for watchman's device Hyperglycemia in Type 2 Diabetes Insulin sliding scale restart Metformin Acute hypomagnesemia Likely due to diarrhea, resolved Hypothyroid TSH slightly low, will decrease to 100 mcg daily Chronic systolic CHF Presented hypovolemic, given IV fluids monitor DVT prophylaxis-mechanical due to suspected GI bleed Full Code reason for continued hospitalization: pending EEG and discharge planning Quality Stroke Does the patient have a stroke diagnosis?: No Reason for No Anti-thrombotic by Day Two: N/A - Med Ordered VTE Prior VTE?: No VTE Risk Level:: Medical - moderate - high VTE Device Contraindication: N/A - Device Ordered VTE Drug Contraindication: N/A - Med Ordered
[2025-04-06] MEDS: metFORMIN HCl 1,000 MG TABLET 1000 MG PO ×2 (12:57→17:12)
--- NOTE | 2025-04-06 15:13 | HO.POSTANES ---
Post Anesthesia Evaluation Post Anesthesia Evaluation Date of Service: 04/06/25 Vital Signs: Vital Signs Temp Pulse Resp BP Pulse Ox O2 Del Method O2 Flow Rate 04/06/25 15:06 97.5 F 75 18 137/68 96 Room Air 04/06/25 14:09 85 133/65 04/06/25 14:09 86 130/68 04/06/25 14:00 75 141/57 H 04/06/25 11:12 97.5 F 82 15 126/56 L 97 Room Air 04/06/25 07:14 98.5 F 87 16 112/70 93 Room Air 04/06/25 07:09 97.5 F 82 18 119/58 L 99 Nasal Cannula 2 04/06/25 06:00 61 143/63 H 04/06/25 03:20 97.6 F 72 18 133/66 97 Nasal Cannula 2 Anesthesia: Monitored Mental Status: Awake Pain Control: Satisfactory Nausea/Vomiting: None Hydration: Adequate Anesthesia-Related Issues: No Anes. Related Issues
[2025-04-06 16:16] LABS: Glucose, Whole Blood 186 mg/dL (60-115)
[2025-04-06 17:24] LABS: Glucose, Whole Blood 165 mg/dL (60-115)
[2025-04-06 20:14] LABS: Glucose, Whole Blood 163 mg/dL (60-115)
[2025-04-06] MEDS: Gabapentin 300 MG CAPSULE PO (20:27)
[2025-04-06] MEDS: Ezetimibe 10 MG TABLET PO (20:27)
[2025-04-06] MEDS: Sertraline HCL 50 MG TABLET PO (20:27)
[2025-04-06] MEDS: Apixaban 5 MG TABLET PO (20:27)
[2025-04-06] MEDS: Sennosides 8.6 MG TABLET 17.2 MG PO (20:27)
[2025-04-07] MEDS: Acetaminophen 325 MG TABLET 650 MG PO ×2 (03:35→16:18)
[2025-04-07 03:51] VITALS: BP 148/66; PULSE 79; RESP 18; TEMP 36.8; O2SAT 97
[2025-04-07] MEDS: Levothyroxine Sodium 100 MCG TABLET PO (05:39)
[2025-04-07] MEDS: Omeprazole 20 MG CAPSULE.DR PO (05:39)
[2025-04-07 06:00] VITALS: BP 114/53; PULSE 65; BMI 25.7
[2025-04-07 07:11] LABS: MANUAL DIFF FLAG NO
[2025-04-07 07:28] LABS: Glucose, Whole Blood 122 mg/dL (60-115)
[2025-04-07 07:39] LABS: Anion Gap 11 (12-20); Blood Urea Nitrogen 16 mg/dL (9-16); Calcium 8.5 mg/dL (8.4-10.2); Carbon Dioxide 28 mmol/L (22-29); Chloride 106 mmol/L (96-108); Creatinine Clr Calc Pharmacy 57.6; Estimated Glomerular Filt Rate > 60; Glucose Random 121 mg/dL (60-115); Potassium 3.3 mmol/L (3.3-5.1); Sodium 142 mmol/L (135-145)
[2025-04-07 07:40] VITALS: BP 103/61; PULSE 74; RESP 20; TEMP 36.4; O2SAT 99
[2025-04-07 07:47] LABS: Basophils Percent Auto 0.4 % (0-2); Eosinophils Absolute Auto 0.1 X10*3/uL (0.0-0.4); Eosinophils Percent Auto 0.7 % (0-4); Hematocrit 30.7 % (37.0-47.0); Hemoglobin 9.5 g/dl (12.0-16.0); Imm Gran Abs Auto 0.05 X10*3/uL (0.00-0.03); Imm Gran Pct Auto 0.6 % (0.0-0.4); Lymphocytes Absolute Auto 1.9 X10*3/uL (1.2-4.9); Lymphocytes Percent Auto 22.8 % (20-40); Mean Corpuscular HGB Conc 30.9 g/dl (31.0-35.0); Mean Corpuscular Hemoglobin 24.7 pg (27.0-33.0); Mean Corpuscular Volume 79.9 fL (80.0-98.0); Mean Platelet Volume 11.3 fL (9.4-12.3); Monocytes Absolute Auto 1.1 X10*3/uL (0.1-1.2); Monocytes Percent Auto 12.5 % (2-11); Neutrophils Absolute Auto 5.3 x10*3/uL (2.0-8.3); Platelet Count 277 X10*3/uL (160-400); Red Blood Count 3.84 X10*6/uL (4.20-5.50); Red Cell Distribution Width 15.2 % (11.0-16.0); White Blood Count 8.5 X10*3/uL (4.8-10.8)
[2025-04-07] MEDS: Atorvastatin Calcium 80 MG TABLET PO (08:41)
[2025-04-07] MEDS: Psyllium seed 3.7 GM PACKET PO (08:41)
[2025-04-07] MEDS: Magnesium Oxide 400 MG TABLET PO (08:41)
[2025-04-07] MEDS: metFORMIN HCl 1,000 MG TABLET 1000 MG PO ×2 (08:41→16:19)
[2025-04-07] MEDS: Cholecalciferol (Vitamin D3) 25 MCG TABLET PO (08:41)
[2025-04-07] MEDS: Cyanocobalamin (Vitamin B-12) 500 MCG TABLET PO (08:41)
[2025-04-07] MEDS: Apixaban 5 MG TABLET PO (08:41)
[2025-04-07] MEDS: 0.9 % Sodium Chloride Flush 3 ML SYRINGE IVFLUSH (08:41)
[2025-04-07 09:56] VITALS: BP 103/61; PULSE 74; O2SAT 99
--- NOTE | 2025-04-07 10:40 | MHC.CM.PN ---
Addendum entered by Umm Alcantara 04/07/25 12:43: [facility] is pursuing insurance auth. Original Note: CM met with Patient at bedside to discuss dc planning. Patient understood that [facility] is very unlikely to be authorized by [facility] insurance, because of Patient's diagnosis. Patient would like to stay closer to home and is agreeable to either [facility] or [facility]. CM will follow.
[2025-04-07 11:53] LABS: Glucose, Whole Blood 164 mg/dL (60-115)
[2025-04-07 11:54] VITALS: BP 120/58; PULSE 70; RESP 20; TEMP 36.9; O2SAT 99
[2025-04-07] MEDS: Insulin Lispro 100 UNIT/ML 3 ML VIAL SUBCUT ×2 (12:14→16:53)
--- NOTE | 2025-04-07 13:34 | P.PNIM_ITS ---
Subjective Subjective Date of Service: 04/07/25 Interval History: Seen and evaluated this morning EGD and Colonoscopy negative for any source of bleeding Hb stable at 9.5 no reported bleeding overnight able to ambulate with no dizziness Review of Systems Review of Systems: Yes all other systems are reviewed and are negative Physical Exam 2 Vital Signs: Vital Signs: Last Vital Signs Temp 98.4 F 04/07/25 11:54 Pulse 70 04/07/25 11:54 Resp 20 04/07/25 11:54 BP 120/58 L 04/07/25 11:54 Pulse Ox 99 04/07/25 11:54 O2 Del Method Nasal Cannula 04/07/25 11:54 O2 Flow Rate 2 04/07/25 11:54 BMI result Body Mass Index 25.7 Const: Other: Constitutional : Awake, interactive, not in distress Neck : Normal inspection, Supple Cardiovascular : RRR, no JVP, no lower extremity edema Respiratory : good bilateral air entry, no crackles, wheezes or rhonchi Gastrointestinal: soft, lax, Normal bowel sounds, Non tender Skin : Warm, Dry Neurological : Alert & oriented x3, No focal deficit Objective Data Active Medications Acetaminophen (Acetaminophen 325 Mg Tablet) 650 mg PO Q6H PRN PRN Reason: Pain, Mild 1-3,fever,headache Last Admin: 04/07/25 03:35 Dose: 650 mg Documented By: ANTOINC Apixaban (Apixaban 5 Mg Tablet) 5 mg PO BID [facility] Last Admin: 04/07/25 08:41 Dose: 5 mg Documented By: YANG Atorvastatin Calcium (Atorvastatin Calcium 80 Mg Tablet) 80 mg PO DAILY [facility] Last Admin: 04/07/25 08:41 Dose: 80 mg Documented By: YANG Calcium Carbonate (Calcium Carbonate 750 Mg Tab.Chew) 750 mg PO Q4H PRN PRN Reason: Heartburn Cyanocobalamin (Cyanocobalamin (Vitamin B-12) 500 Mcg Tablet) 500 mcg PO DAILY [facility] Last Admin: 04/07/25 08:41 Dose: 500 mcg Documented By: YANG Dextrose (Dextrose 50 % 25 Gm/50 Ml Syringe) 25 gm IVPUSH Q15M PRN; Protocol PRN Reason: per Hypoglycemia Standing Ord. Ezetimibe (Ezetimibe 10 Mg Tablet) 10 mg PO BEDTIME [facility] Last Admin: 04/06/25 20:27 Dose: 10 mg Documented By: VIVIANAOINRashid Gabapentin (Gabapentin 300 Mg Capsule) 300 mg PO BEDTIME [facility] Last Admin: 04/06/25 20:27 Dose: 300 mg Documented By: BERONICA Glucose (Glucose Gel 15 Gm Gel..Gram.) 15 gm PO Q15M PRN; Protocol PRN Reason: per Hypoglycemia Standing Ord. Insulin Human Lispro (Insulin Lispro 100 Unit/Ml 3 Ml Vial) 0 unit SUBCUT QIDACHS [facility]; Protocol Last Admin: 04/07/25 12:14 Dose: 2 unit Documented By: YANG Levothyroxine Sodium (Levothyroxine Sodium 100 Mcg Tablet) 100 mcg PO DAILY@0600 [facility] Last Admin: 04/07/25 05:39 Dose: 100 mcg Documented By: BERONICA Loperamide HCl (Loperamide Hcl 2 Mg Capsule) 2 mg PO Q4H PRN PRN Reason: Constipation Magnesium Hydroxide (Milk Of Magnesia 30 Ml Oral.Susp) 30 ml PO DAILY PRN PRN Reason: Constipation Magnesium Oxide (Magnesium Oxide 400 Mg Tablet) 400 mg PO BID [facility] Last Admin: 04/07/25 08:41 Dose: 400 mg Documented By: YANG Melatonin (Melatonin 3 Mg Tablet) 6 mg PO BEDTIME PRN PRN Reason: Insomnia Metformin HCl (Metformin Hcl 1,000 Mg Tablet) 1,000 mg PO BIDWM [facility] Last Admin: 04/07/25 08:41 Dose: 1,000 mg Documented By: YANG Naloxone HCl (Naloxone Hcl 0.4 Mg/Ml Vial) 0.04 mg IVPUSH Q5M PRN PRN Reason: Excessive sedation or RR < 8 Omeprazole (Omeprazole 20 Mg Capsule.Dr) 20 mg PO DAILY@0630 [facility] Last Admin: 04/07/25 05:39 Dose: 20 mg Documented By: BERONICA Ondansetron HCl (Ondansetron Hcl 4 Mg/2 Ml Vial) 4 mg IVPUSH Q8H PRN PRN Reason: Nausea and Vomiting Psyllium Hydrophilic Mucilloid (Psyllium Seed 3.7 Gm Packet) 3.7 gm PO DAILY [facility] Last Admin: 04/07/25 08:41 Dose: 3.7 gm Documented By: YANG Senna (Sennosides 8.6 Mg Tablet) 17.2 mg PO BEDTIME [facility] Last Admin: 04/06/25 20:27 Dose: 17.2 mg Documented By: VIVIANAOINRashid Sertraline HCl (Sertraline Hcl 50 Mg Tablet) 50 mg PO BEDTIME [facility] Last Admin: 04/06/25 20:27 Dose: 50 mg Documented By: VIVIANAOINRashid Sodium Chloride (0.9 % Sodium Chloride Flush 3 Ml Syringe) 3 ml IVFLUSH QSHIFT [facility] Last Admin: 04/07/25 08:41 Dose: 3 ml Documented By: YANG Vitamin D (Cholecalciferol (Vitamin D3) 25 Mcg Tablet) 25 mcg PO DAILY [facility] Last Admin: 04/07/25 08:41 Dose: 25 mcg Documented By: YANG Labs 04/07/25 07:00 04/07/25 07:00 Labs: Laboratory Results - last 24 hr 04/06/25 04/06/25 04/06/25 16:11 17:18 20:02 MCV MCH MCHC RDW Plt Count MPV Immature Gran % (Auto) Neut % (Auto) Lymph % (Auto) [place] % (Auto) Eos % (Auto) Baso % (Auto) Lymph # (Auto) [place] # (Auto) Eos # (Auto) Baso # (Auto) Abs Immat Gran (auto) Absolute Neuts (auto) Absolute Nucleated RBC Nucleated RBC % (auto) Anion Gap Estim Creat Clear Calc Estimated GFR POC Glucose 186 H 165 H 163 H Random Glucose Calcium 04/07/25 04/07/25 04/07/25 07:00 07:25 11:25 MCV 79.9 L MCH 24.7 L MCHC 30.9 L RDW 15.2 Plt Count 277 MPV 11.3 Immature Gran % (Auto) 0.6 H Neut % (Auto) 63.0 Lymph % (Auto) 22.8 [place] % (Auto) 12.5 H Eos % (Auto) 0.7 Baso % (Auto) 0.4 Lymph # (Auto) 1.9 [place] # (Auto) 1.1 Eos # (Auto) 0.1 Baso # (Auto) 0.0 Abs Immat Gran (auto) 0.05 H Absolute Neuts (auto) 5.3 Absolute Nucleated RBC 0.000 Nucleated RBC % (auto) 0.0 Anion Gap 11 L Estim Creat Clear Calc 57.6 Estimated GFR > 60 POC Glucose 122 H 164 H Random Glucose 121 H Calcium 8.5 Assessment and Plan (1) Acute on chronic anemia: Status: Acute (2) Dizziness: Status: Acute (3) Hypomagnesemia: Status: Acute Plan 79F PMH paroxysmal AFib on Eliquis, CVA, hypertension, hyperlipidemia, diabetes, hypothyroid, GERD, chronic systolic CHF, chronic diarrhea presented with dizziness found to have hypomagnesemia, hypotension Dizziness MRI negative for cva could be due to orthostatic hypotension or symptomatic anemia, and diabetic neuropathy Holding losartan, given IV fluids and blood pressure improved ; orthostatic vitals stable Neurology rec EEG, pending today follow on orthostatic pressures Acute on chronic iron-deficiency anemia Holding Eliquis, monitor hemoglobin, will give iv iron, above threshold for transfusion EGD/colonoscopy 04/05/25 negative for source of bleeding, showing hiatal hernia, internal hemorroids and diverticulosis high fiber diet to get Capsule endoscopy as outpatient restart Eliquis Paroxysmal AFib Currently in sinus rhythm, restarting apixaban no plans for watchman's device Hyperglycemia in Type 2 Diabetes Insulin sliding scale restart Metformin Acute hypomagnesemia Likely due to diarrhea, resolved Hypothyroid TSH slightly low, will decrease to 100 mcg daily Chronic systolic CHF Presented hypovolemic, given IV fluids monitor DVT prophylaxis-mechanical due to suspected GI bleed Full Code reason for continued hospitalization: pending EEG and discharge planning Quality Stroke Does the patient have a stroke diagnosis?: No Reason for No Anti-thrombotic by Day Two: N/A - Med Ordered VTE Prior VTE?: No VTE Risk Level:: Medical - moderate - high VTE Device Contraindication: N/A - Device Ordered VTE Drug Contraindication: N/A - Med Ordered
--- NOTE | 2025-04-07 15:42 | MHC.CM.PN ---
Addendum entered by Umm Alcantara 04/07/25 15:55: [facility] was unable to accept Patient at 8PM; [facility] is now able to tile pick[facility] at 6:30 PM. Original Note: Per MD, Patient is medically cleared for dc to SNF/[facility] today. Patient will dc to [facility] today at 8 PM, via [facility]. CM met with Patient at bedside and addressed IMM with her, providing Patient with the original and a copy has been placed on the chart. Patient is aware of and in agreement with the dc plan and said that she, will tell the kids.
[2025-04-07 16:00] VITALS: BP 126/54; PULSE 77; RESP 18; TEMP 36.8; O2SAT 96
--- NOTE | 2025-04-07 16:09 | PM.DS ---
DS: Providers Provider Date of Service: 04/07/25 Date of admission: 04/02/25 23:55 Date of discharge: 04/07/25 Primary care physician: Letty Scott MD Consults: 04/03/25 00:33 Consult to Gastroenterology Routine Consulting Provider: Roverto Morelos Reason for consultation: persistent diarrhea, iron deficiency anemia on eliquis Has provider been notified: No 04/03/25 00:34 Consult to Wound Care Routine Reason for consultation: L buttocks stage II 04/03/25 00:35 Consult to Cardiology Routine Consulting Provider: [facility] Reason for consultation: ?cardiomyopathy contributingto symptoms Has provider been notified: No Consult to Neurology Routine Consulting Provider: [facility] Reason for consultation: persistent dizziness, hx of CVA 06/2024, ? 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 Pt denies falling or hitting her head or a syncopal episode with LOC or loss of bowel or bladder function. Pt has chronic Left sided weakness in upper and lower extremities from previous CVA. Pt is complaining of a mild occipital JONES. CTA was completed priror to accepting for admission, no acute findings with normal variants. CT head also negative for acute findings. Patient is a diabetic and checks her blood sugar once daily in the morning before breakfast. Patient denies any issues with hypoglycemia or hyperglycemia. Pt has also been having 2 months of persistent diarrhea releived with immodium taken every 2 days routinely. Pt also started taking lactaid when consuming dairy as she beleives she may be lactose intolerant. Pt has not seen GI so far. Per pt's daughter, pt's appetite has been fair and pt has ot been hydrating very well. Renal function is stable. ECG and tele note accelerated junctional rhythm. Pt recently told her magnesium was critically low and was started on oral MG. MG today 1.4, pt is receiving MG IV in ED. Pt was recently diagnosed with HFrEF, 40-45% with ICM but does not currently have chest pain, SOB at rest or with exertion. Pt does wear O2 at night only and denies hx of HAVEN. Pt is not currently on diuretics with no evidence of pleural effusion or pulmonary edema. BNP pending. Patient presents euvolemic. Pt does currently use electronic cigarettes, low dose overall. Pt is requesting NRT for admission. Ordering 7 mg nicotine patch. Incidentally patient's TSH is 0.03 L, free T4 1.46 N. Patient is currently on levothyroxine. Will need to reduce the levothyroxine dose once MED REC is completed. Pt does have a chronic L buttocks stage 2 wound and wound care is done at home by her family member that is a nurse. Pt does not attend wound care clinic. Pt denies fever, chills, nausea or vomiting. Patient being admitted for further monitoring, MRI of the brain and expert consultation with neurology, cardiology, GI, wound care and PT eval. Hospital course The patient was admitted for evaluation of the following: # Dizziness. CT head and MRI negative for cva. likely due to orthostatic hypotension or symptomatic anemia, and diabetic neuropathy. Discontinued losartan and placed on IV fluids so blood pressure improved ; orthostatic vitals stable since then. Neurology rec EEG which was done. repeated orthostatic pressures within normal. no more dizziness reported. To Discontinue Losartan on discharge. # Acute on chronic iron-deficiency anemia Held Eliquis and monitor hemoglobined. She received iv iron supplement with improvement of Hb >9. Had EGD/colonoscopy 04/05/25 negative for source of bleeding, showing hiatal hernia, internal hemorroids and diverticulosis high fiber diet started and GI recommended to get Capsule endoscopy as outpatient restart Eliquis and Hb remained stable # Hyperglycemia in Type 2 Diabetes placed on Insulin sliding scale. to restart Metformin on discharge. # Acute hypomagnesemia Likely due to diarrhea, resolved with replacement Discharge plan Stay well hydrated Stop Losartan Continue Omeprazole Follow with [facility] Gastroenterology for capsule endoscopy study as outpatient Time Attestation Discharge Coordination Time (in mins): 42 Quality: Safe Use of Opioids Does Pt have an Active Cancer Diagnosis on the Problem List?: No Quality: Stroke Does the patient have a stroke diagnosis?: No Physical Exam Vital Signs: Vital Signs: Last Vital Signs Temp 98.4 F 04/07/25 11:54 Pulse 70 04/07/25 11:54 Resp 20 04/07/25 11:54 BP 120/58 L 04/07/25 11:54 Pulse Ox 99 04/07/25 11:54 O2 Del Method Nasal Cannula 04/07/25 11:54 O2 Flow Rate 2 04/07/25 11:54 BMI result Body Mass Index 25.7 Const: Other: Constitutional : Awake, interactive, not in distress Neck : Normal inspection, Supple Cardiovascular : RRR, no JVP, no lower extremity edema Respiratory : good bilateral air entry, no crackles, wheezes or rhonchi Gastrointestinal: soft, lax, Normal bowel sounds, Non tender Skin : Warm, Dry Neurological : Alert & oriented x3, No focal deficit DS: Data Data Completed and Pending Pending studies at discharge: Pending at discharge 04/05/25 13:51 Surgical [PTH] Routine Labs on day of discharge: Laboratory Results - last 24 hr 04/06/25 04/06/25 04/06/25 16:11 17:18 20:02 WBC RBC Hgb Hct MCV MCH MCHC RDW Plt Count MPV Immature Gran % (Auto) Neut % (Auto) Lymph % (Auto) [place] % (Auto) Eos % (Auto) Baso % (Auto) Lymph # (Auto) [place] # (Auto) Eos # (Auto) Baso # (Auto) Abs Immat Gran (auto) Absolute Neuts (auto) Absolute Nucleated RBC Nucleated RBC % (auto) Sodium Potassium Chloride Carbon Dioxide Anion Gap BUN Creatinine Estim Creat Clear Calc Estimated GFR POC Glucose 186 H 165 H 163 H Random Glucose Calcium 04/07/25 04/07/25 04/07/25 07:00 07:25 11:25 WBC 8.5 RBC 3.84 L Hgb 9.5 L Hct 30.7 L MCV 79.9 L MCH 24.7 L MCHC 30.9 L RDW 15.2 Plt Count 277 MPV 11.3 Immature Gran % (Auto) 0.6 H Neut % (Auto) 63.0 Lymph % (Auto) 22.8 [place] % (Auto) 12.5 H Eos % (Auto) 0.7 Baso % (Auto) 0.4 Lymph # (Auto) 1.9 [place] # (Auto) 1.1 Eos # (Auto) 0.1 Baso # (Auto) 0.0 Abs Immat Gran (auto) 0.05 H Absolute Neuts (auto) 5.3 Absolute Nucleated RBC 0.000 Nucleated RBC % (auto) 0.0 Sodium 142 Potassium 3.3 Chloride 106 Carbon Dioxide 28 Anion Gap 11 L BUN 16 Creatinine 0.75 Estim Creat Clear Calc 57.6 Estimated GFR > 60 POC Glucose 122 H 164 H Random Glucose 121 H Calcium 8.5 Imaging MRI - head: Radiologist's impression: ITS Impressions Brain MRI 04/03/25 16:00 IMPRESSION: 1. No intracranial hemorrhage, mass effect, edema, or acute infarction. 2. 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 Somewhat age advanced cerebral and cerebellar involutional changes. 4. Moderate changes of small vessel ischemia. Electronically signed by: Jordy Bryan MD 04/03/2025 04:41 PM EDT Discharge Plan Discharge Anticipated Discharge Date/Time: 04/07/25 16:02 Patient Disposition: Xfer SNF Discharge Diagnosis: acute on chronic anemia Dizziness Referrals: [facility] [Outside] - 1 Week Letty Vasquez MD [Primary Care Provider] - 1 Week Discharge Medications: New Hydrocil Instant Packet 1 packet PO DAILY Qty: 30 0RF Continued (DME) pen needle, diabetic [Novofine 32] 32 gauge x 1/4 needle See Rx Instructions .Route Qty: 100 0RF Rx Instructions: As directed up to three times per day (DME) Stair lift See Rx Instructions .Route .MEDSUPPLY Qty: 1 0RF Rx Instructions: As directed (DME) blood sugar diagnostic Strip See Rx Instructions .ROUTE .MEDSUPPLY Qty: 100 11RF Rx Instructions: FREESTYLE LITE TEST STRIPS TO CHECK THREE TIMES A DAY atorvastatin 80 mg tablet 80 mg PO DAILY Qty: 90 3RF ezetimibe 10 mg tablet 10 mg PO BEDTIME Qty: 30 1RF metformin 1,000 mg tablet 1,000 mg PO BIDWM Qty: 180 3RF Eliquis 5 mg tablet 5 mg PO BID Qty: 60 4RF liraglutide 0.6 mg/0.1 mL (18 mg/3 mL) pen injector 1.2 mg subcut DAILY 30 Days Qty: 6 10RF magnesium oxide 400 mg magnesium tablet 400 mg PO BID Qty: 10 0RF cyanocobalamin (vitamin B-12) 250 mcg Tablet 500 mcg PO DAILY cholecalciferol (vitamin D3) [Vitamin D3] 25 mcg (1,000 unit) Tablet 25 mcg PO DAILY sertraline 50 mg tablet 50 mg PO DAILY gabapentin 300 mg capsule 300 mg PO BEDTIME omeprazole 20 mg capsule,delayed release(DR/EC) 20 mg PO DAILY@0630 levothyroxine 112 mcg tablet 112 mcg PO DAILY@0600 diclofenac sodium 1 % gel 2 g topical QID PRN (Reason: Pain) loperamide 2 mg Capsule 2 mg PO Q4H PRN (Reason: Constipation) Rx Instructions: administer after each loose stool until symptoms controlled; do not exceed 8 mg per 24 hrs (DME) blood-glucose meter [FreeStyle Lite Meter] Kit See Rx Instructions .ROUTE .MEDSUPPLY Qty: 1 0RF Rx Instructions: As directed Discontinued losartan 25 mg tablet 12.5 mg PO DAILY Qty: 90 8RF Discharge Orders: Discharge Order (Routine); Ordered 04/07/25 Ordered By: Soco Mcduffie Diet: Diabetic diet Activity on Discharge: As tolerated Stand Alone Forms: Patient Portal Discharge page Print Language: Nepali Care Plan Goals: Stay well hydrated Stop Losartan Continue Omeprazole Follow with [facility] Gastroenterology for capsule endoscopy study as outpatient Health Concerns: Anemia Dizziness Plan of Treatment: GI follow up Assessment: as above
[2025-04-07 16:43] LABS: Glucose, Whole Blood 216 mg/dL (60-115)
== END 2025-04-07 19:33 | disposition skilled nursing facility (03) | DRG 312 ==
LOC: HO.ED 04-03 01:35 → HO.EDOVER 04-03 01:50 → HO.IMC 04-03 14:26
PROVIDERS: Internal Medicine; Internal Medicine Gastroenterology; Physician Assistant; Admitting Provider Nurse Practitioner Family; Emergency Provider Emergency Medicine Emergency Medical Services; PCP Internal Medicine; Visit Provider Student in an Organized Health Care Education/Training Program
PROC: 0DB98ZX Excision of Duodenum, Via Natural or Artificial Opening Endoscopic, Diagnostic (ICD-10-PCS; principal; 2025-04-05 15:10)
DX: I95.1 Orthostatic hypotension (principal); I50.22 Chronic systolic (congestive) heart failure; I48.0 Paroxysmal atrial fibrillation; K52.9 Noninfective gastroenteritis and colitis, unspecified; E03.9 Hypothyroidism, unspecified; E11.65 Type 2 diabetes mellitus with hyperglycemia; Z66 Do not resuscitate; K64.0 First degree hemorrhoids; K57.30 Diverticulosis of large intestine without perforation or abscess without bleeding; K22.2 Esophageal obstruction; K44.9 Diaphragmatic hernia without obstruction or gangrene; D50.9 Iron deficiency anemia, unspecified; L89.322 Pressure ulcer of left buttock, stage 2; E83.42 Hypomagnesemia; E11.40 Type 2 diabetes mellitus with diabetic neuropathy, unspecified; E83.39 Other disorders of phosphorus metabolism; Z20.822 Contact with and (suspected) exposure to COVID-19; Z87.891 Personal history of nicotine dependence; Z79.01 Long term (current) use of anticoagulants; Z79.84 Long term (current) use of oral hypoglycemic drugs; Z79.890 Hormone replacement therapy; Z79.899 Other long term (current) drug therapy
CPT/HCPCS: 0241U; 36415; 70450; 70496; 70498; 70551; 74176; 80048; 80053; 81001; 82947; 83540; 83690; 83735; 83880; 84100; 84439; 84443; 84484; 85025; 85027; 88305; 88313; 88342; 93005; 95816; 97116; 97162; 97530; 99285; J1596; J1756; J2003; J2704; J3475; Q9967

== ENCOUNTER → 2025-04-02 15:17 | Outpatient (BNV) | payer MEDICARE, SELFPAY | PROVIDERS: Admitting Provider Nurse Practitioner Family; Emergency Provider Emergency Medicine Emergency Medical Services; PCP Internal Medicine; Visit Provider Internal Medicine Cardiovascular Disease | DX: R42 Dizziness and giddiness (principal); R53.1 Weakness; R94.31 Abnormal electrocardiogram [ECG] [EKG] | CPT/HCPCS: 93010 ==

== ENCOUNTER → 2025-04-02 15:18 | Outpatient (BNV) | payer MEDICARE, SELFPAY | PROVIDERS: PCP Internal Medicine; Visit Provider Radiology Diagnostic Radiology | DX: R42 Dizziness and giddiness (principal); K43.9 Ventral hernia without obstruction or gangrene; R51.9 Headache, unspecified | CPT/HCPCS: 70450; 70496; 70498; 74176 ==

== ENCOUNTER 2025-04-02 23:55 | Outpatient (BNV) | payer MEDICARE, SELFPAY | END 2025-04-03 16:00 | PROVIDERS: Admitting Provider Nurse Practitioner Family; Emergency Provider Emergency Medicine Emergency Medical Services; PCP Internal Medicine; Visit Provider Radiology Diagnostic Radiology | DX: R42 Dizziness and giddiness (principal) | CPT/HCPCS: 70551 ==

== ENCOUNTER 2025-04-02 23:55 | Outpatient (BNV) | payer MEDICARE, SELFPAY | END 2025-04-03 08:00 | PROVIDERS: Admitting Provider Nurse Practitioner Family; Emergency Provider Emergency Medicine Emergency Medical Services; PCP Internal Medicine; Visit Provider Internal Medicine Cardiovascular Disease | DX: R42 Dizziness and giddiness (principal); R53.1 Weakness; R94.31 Abnormal electrocardiogram [ECG] [EKG] | CPT/HCPCS: 93010 ==

== ENCOUNTER → 2025-04-02 23:55 | Outpatient (BNV) | payer MEDICARE, SELFPAY | PROVIDERS: Admitting Provider Nurse Practitioner Family; Emergency Provider Emergency Medicine Emergency Medical Services; PCP Internal Medicine; Visit Provider Nurse Practitioner Family | DX: E83.42 Hypomagnesemia (principal) | CPT/HCPCS: 99232 ==

== ENCOUNTER → 2025-04-02 23:55 | Outpatient (BNV) | payer MEDICARE, SELFPAY | PROVIDERS: Admitting Provider Nurse Practitioner Family; Emergency Provider Emergency Medicine Emergency Medical Services; PCP Internal Medicine; Visit Provider Internal Medicine Cardiovascular Disease | DX: R42 Dizziness and giddiness (principal); I48.0 Paroxysmal atrial fibrillation | CPT/HCPCS: 99222 ==

== ENCOUNTER → 2025-04-02 23:55 | Outpatient (BNV) | payer MEDICARE, SELFPAY | PROVIDERS: Admitting Provider Nurse Practitioner Family; Emergency Provider Emergency Medicine Emergency Medical Services; PCP Internal Medicine; Visit Provider Internal Medicine Gastroenterology | DX: D64.9 Anemia, unspecified (principal) | CPT/HCPCS: 99223 ==

== ENCOUNTER → 2025-04-02 23:55 | Outpatient (BNV) | payer MEDICARE, SELFPAY | PROVIDERS: Admitting Provider Nurse Practitioner Family; Emergency Provider Emergency Medicine Emergency Medical Services; PCP Internal Medicine; Visit Provider Psychiatry & Neurology Neurology | DX: R42 Dizziness and giddiness (principal) | CPT/HCPCS: 99222 ==

== ENCOUNTER 2025-04-28 15:30 | Outpatient (AMB) | payer MEDICARE, SELFPAY ==
--- NOTE | 2025-04-28 15:38 | MHC.PC.OV ---
Vital Signs 04/28/25 15:39 Height 5 ft 4 in Weight 150 lb 4 oz BMI 25.8 BP 100/58 L Blood Pressure Location Lt brachial Position Sitting Pulse 61 Pulse Source Pulse Oximeter Pulse Oximetry (%) 95 Oxygen Delivery Method Room Air Intake Visit Reasons: [facility] 04/21 It Application Development Manager Required: No Accompanied by: Self / Same As Patient Allergies amoxicillin [Augmentin] Allergy (Unknown, Verified 04/28/25 15:40) hives clavulanic acid [Augmentin] Allergy (Unknown, Verified 04/28/25 15:40) hives furosemide Allergy (Unknown, Verified 04/28/25 15:40) unknown latex [LATEX] Allergy (Unknown, Verified 04/28/25 15:40) UNKNOWN lisinopril Allergy (Unknown, Verified 04/28/25 15:40) Unknown oxycodone [Percocet] Allergy (Unknown, Verified 04/28/25 15:40) Stomach upset tramadol Allergy (Unknown, Verified 04/28/25 15:40) Stomach uspet Tobacco use date assessed: 04/28/25 Fall risk assessment: 1 Fall in past year Last assessed Fall Risk: 04/28/25 Dental Screening Dental Screen Date: 04/28/25 Did you have a dental visit in the last 12 months?: No Did you have a dental problem in the last 6 months where you did not have access to dental care?: No Was dental information given to patient?: No HPI HPI Comments History of Present Illness Details [facility] CVA 06/2024 secondary to undx AFIB now on ELiquis, HTN, HLD, IDDMII, Hypothyroisidm, Hypomagnesemia, diverticulosis, current tobacco use via electronic cigarette, and GERD. Pt was admitted at [facility] on 04/02 - 04/07 for evaluation of the following; Dizziness. CT head and MRI negative for CVA - likely due to orthostatic hypotension or symptomatic anemia, and diabetic neuropathy. Acute on chronic iron-deficiency anemia due Eliquis use. Had EGD/colonoscopy 04/05/25 negative for source of bleeding. Hyperglycemia in Type 2 Diabetes and Acute hypomagnesemia Likely due to diarrhea. She was transfered to [facility]) and was admitted there from 04/07 - 04/21 for further management and treatment of her disease process. [facility] Medical History (Updated 04/28/25 @ 18:26 by Sandie Cardona NP) Orthostatic hypotension Anemia Paroxysmal atrial fibrillation Buttock wound Obesity (BMI 30-39.9) Neuropathy Acquired hypothyroidism Mixed hyperlipidemia Essential hypertension Atrial fibrillation Hypothyroidism Obesity Type 2 diabetes mellitus with morbid obesity Annual physical exam Vitamin D deficiency HLD (hyperlipidemia) T2DM (type 2 diabetes mellitus) Diabetes mellitus Hypertension Surgical History H/O hysterectomy for benign disease History of vitrectomy History of surgery History of colonoscopy (~01/28/19) History of appendectomy History of cholecystectomy S/P JOSIE (total abdominal hysterectomy) Family History Father Diabetes Mother CHF (congestive heart failure) CVD (cardiovascular disease) Brother HIV (human immunodeficiency virus infection) Social History Household Members: Family Housing: Homeless Do you presently have visiting nurse or other home services: No Alcohol intake: current Patient Tobacco Use Status: Former Tobacco user Tobacco use type: Cigarette Years Smoked: 30, started at 10, about 15 cig a day, e-Cigarette/Vaping Use: Currently Using Second Hand Smoke Exposure: Yes Advance Directives Date on File: 12/15/23 service: No Current occupational status: retired Current occupational exposures/hazards: No Cognitive needs: No Hearing needs: No Vision needs: No Questionnaire PHQ-9 Over the last 2 weeks, how often have you been bothered by any of the following problems? 1. Little interest or pleasure in doing things: several days 2. Feeling down, depressed, or hopeless: several days 3. Trouble falling or staying asleep, or sleeping too much: not at all 4. Feeling tired or having little energy: several days 5. Poor appetite or overeating: several days 6. Feeling bad about yourself - or that you are a failure or have let yourself or your family down: not at all 7. Trouble concentrating on things, such as reading the newspaper or watching television: several days 8. Moving or speaking so slowly that other people could have noticed. Or the opposite - being so fidgety or restless that you have been moving around a lot more than usual: not at all 9. Thoughts that you would be better off or of hurting yourself in some way: not at all Total score: 5 Source: Developed by Drs. Mendez Sanz, Shannan Quintanilla, Fuentes Sales and colleagues, with an educational aurelia from [employer]. Thrive Questionnaire Date Thrive assessed: 04/28/25 I am a: Parent/Caregiver What is your living situation today?: I have a steady place to live Within the past 12 months, did the food you bought not last and you didn't have the money to get more?: Never true Within the past 12 months, did you worry whether your food would run out before you got money to buy more?: Never true Do you have trouble paying for medicines?: No Do you have trouble getting transportation to medical appointments?: No Do you have trouble paying your heating and electricity bill?: No Do you have trouble taking care of your child, family member or friend?: No Do you have trouble with day-to-day activities such as bathing, preparing meals, shopping, managing finances, etc.?: No Are you currently unemployed and looking for a job?: No Are you interested in more education?: No Please select the resources that you would like help with: None Currently or been in a relationship where the following occur: No concerns reported THRIVE Score: 0 AUDIT C Alcohol Use Questionnaire (AUDIT-C) 1. How often do you have a drink containing alcohol?: Never 3. How often do you have six or more drinks on one occasion?: Never Total Score: 0 ARSLAN-7 AMB Questionnaire ARSLAN-7 Date ARSLAN - 7 assessed: 04/28/25 Feeling nervous, anxious, or on edge: 0 = Not at all Not being able to stop or control worryin = Not at all Worrying too much about different things: 0 = Not at all Trouble relaxin = Not at all Being so restless that it is hard to sit still: 0 = Not at all Becoming easily annoyed or irritable: 2 = More than half the days Feeling afraid as if something awful might happen: 0 = Not at all Total ARSLAN-7 score (0-4 normal; 5-9 mild; 10-14 moderate; 15-21 severe): 2 Source: Developed by Drs. Mendez Sanz, Shannan Quintanilla, Fuentes Sales and colleagues, with an educational aurelia from [employer]. Physical exam (Primary Care) Vital Signs: Last Vital Signs Pulse 61 04/28/25 15:39 BP 100/58 L 04/28/25 15:39 Pulse Ox 95 04/28/25 15:39 Oxygen Delivery Method Room Air 04/28/25 15:39 BMI result Body Mass Index 25.8 Tobacco/Smoking Status: Tobacco use Status Tobacco use date assessed 04/28/25 04/28/25 15:44 Patient Tobacco Use Status Former Tobacco user 04/28/25 15:44 Tobacco use type Cigarette 04/28/25 15:44 e-Cigarette/Vaping Use Currently Using 04/28/25 15:44 PHQ-9: PHQ-9 Score PHQ-9: Total score 5 04/28/25 16:31 Thrive Assessment: Date of Thrive Assessment Date Thrive assessed 04/28/25 04/28/25 15:44 Currently or been in a relationship where the following occur: No concerns reported Const General: no acute distress Orientation/consciousness: patient oriented x3 Resp Effort & Inspection: normal respiratory effort and able to speak in complete sentences Auscultation: clear to auscultation bilaterally, no crackles, no rales, no rhonchi and no wheezes Cardio Rhythm: regular rhythm Heart sounds: S1 normal heart sound present and S2 normal heart sound present Neuro General: patient oriented x3 Coding Level of Care Code Est Pt Level 4 (86594) Diagnoses Orthostatic hypotension I95.1 Hypomagnesemia E83.42 Iron deficiency anemia due to chronic blood loss D50.0 Anemia type: iron deficiency Iron deficiency anemia type: chronic blood loss Time Spent (min) 20 Assessment & Plan Assessment & Plan (1) Orthostatic hypotension: Code(s): I95.1 - Orthostatic hypotension Category: Medical Plan: Stable - resolved. (2) Hypomagnesemia: Code(s): E83.42 - Hypomagnesemia Category: Medical Plan: Ordered CBC and MG levels. (3) Anemia: Code(s): D64.9 - Anemia, unspecified Category: Medical Qualifiers: Anemia type: iron deficiency Iron deficiency anemia type: chronic blood loss Qualified Code(s): D50.0 - Iron deficiency anemia secondary to blood loss (chronic) Plan: High fiber diet GI recommended to get Capsule endoscopy as outpatient - referral placed. Orders: Orders Complete Blood Count Auto Diff Today D50.0 - Iron deficiency anemia secondary to blood loss (chronic) Magnesium Today E83.42 - Hypomagnesemia Referrals Gastroenterology Referral D50.0 - Iron deficiency anemia secondary to blood loss (chronic)
[2025-04-28 15:39] VITALS: BP 100/58; PULSE 61; O2SAT 95; BMI 25.8
== END 2025-04-28 16:52 | disposition home or self-care (01) ==
LOC: HO.HMCH 15:31
PROVIDERS: PCP Internal Medicine; Visit Provider Nurse Practitioner Family
DX: I95.1 Orthostatic hypotension (principal); E83.42 Hypomagnesemia; D50.0 Iron deficiency anemia secondary to blood loss (chronic)

== ENCOUNTER → 2025-04-28 15:30 | Outpatient (BNVA) | payer MEDICARE, SELFPAY | PROVIDERS: PCP Internal Medicine; Visit Provider Nurse Practitioner Family | DX: I48.91 Unspecified atrial fibrillation (principal); I10 Essential (primary) hypertension; E78.5 Hyperlipidemia, unspecified; E11.9 Type 2 diabetes mellitus without complications; E11.40 Type 2 diabetes mellitus with diabetic neuropathy, unspecified; Z79.01 Long term (current) use of anticoagulants; I95.1 Orthostatic hypotension; E83.42 Hypomagnesemia; D50.0 Iron deficiency anemia secondary to blood loss (chronic) | CPT/HCPCS: 96127; 99212 ==

== ENCOUNTER 2025-05-04 14:35 | Outpatient (AMB) | payer MEDICARE, SELFPAY ==
--- NOTE | 2025-05-04 14:48 | MHC.OFFVIS ---
Vital Signs 05/04/25 14:50 Height 5 ft 4 in Weight 147 lb 11.355 oz BMI 25.4 BP 108/74 Blood Pressure Location Lt brachial Position Sitting Pulse 62 Intake Visit Reasons: 6 mth f/up Intake Note: 6 month follow-up also [facility] [place] ED f/u low Mag Losartan was stopped still having dizziness at times Assembling Motor Builder Required: No Last Greaser: Last Greaser Present Accompanied by: Grand Child Allergies amoxicillin [Augmentin] Allergy (Unknown, Verified 04/28/25 15:40) hives clavulanic acid [Augmentin] Allergy (Unknown, Verified 04/28/25 15:40) hives furosemide Allergy (Unknown, Verified 04/28/25 15:40) unknown latex [LATEX] Allergy (Unknown, Verified 04/28/25 15:40) UNKNOWN lisinopril Allergy (Unknown, Verified 04/28/25 15:40) Unknown oxycodone [Percocet] Allergy (Unknown, Verified 04/28/25 15:40) Stomach upset tramadol Allergy (Unknown, Verified 04/28/25 15:40) Stomach uspet Medication List - Last Reconciled 05/04/25 by Ruiz Sahu MD apixaban (Eliquis) 5 mg PO BID atorvastatin 80 mg PO DAILY blood sugar diagnostic FREESTYLE LITE TEST STRIPS TO CHECK THREE TIMES A DAY blood-glucose meter (FreeStyle Lite Meter kit) As directed cholecalciferol (vitamin D3) (Vitamin D3) 25 mcg PO DAILY cyanocobalamin (vitamin B-12) 500 mcg PO DAILY diclofenac sodium 1% 2 grams topical QID PRN ezetimibe 10 mg PO BEDTIME gabapentin 300 mg PO BEDTIME levothyroxine 112 mcg PO DAILY@0600 liraglutide 1.2 mg (0.2 mL) subcut DAILY 30 days loperamide 2 mg PO Q4H PRN magnesium oxide 400 mg PO BID metformin 1,000 mg PO BIDWM omeprazole 20 mg PO DAILY@0630 pen needle, diabetic (Novofine 32) As directed up to three times per day psyllium (Hydrocil Instant oral packet) 1 packet PO DAILY sertraline 50 mg PO DAILY [Stair lift As directed] HPI Comments Details: Naty comes for follow-up. Since we last discussed with the granddaughter she has been monitoring heart rate with a fit bit device and notices that she does have elevated heart rate consistent with intermittent atrial fibrillation. She continues to have no symptoms related to it. Denies any worsening palpitations. Denies any worsening shortness of breath, fatigue, orthopnea, PND. Her lightheadedness and low blood pressure improved since stopping losartan. She is overall doing well. She is walking more. She has no new neurologic symptoms. Continues to use apixaban regularly. [facility] Medical History (Updated 05/06/25 @ 12:43 by Ruiz Sahu MD) Paroxysmal atrial fibrillation Orthostatic hypotension Anemia Buttock wound Obesity (BMI 30-39.9) Neuropathy Acquired hypothyroidism Mixed hyperlipidemia Essential hypertension Atrial fibrillation Hypothyroidism Obesity Type 2 diabetes mellitus with morbid obesity Annual physical exam Vitamin D deficiency HLD (hyperlipidemia) T2DM (type 2 diabetes mellitus) Diabetes mellitus Hypertension Surgical History H/O hysterectomy for benign disease History of vitrectomy History of surgery History of colonoscopy (~01/28/19) History of appendectomy History of cholecystectomy S/P JOSIE (total abdominal hysterectomy) Family History Father Diabetes Mother CHF (congestive heart failure) CVD (cardiovascular disease) Brother HIV (human immunodeficiency virus infection) Social History Household Members: Family Housing: Homeless Do you presently have visiting nurse or other home services: No Alcohol intake: current Patient Tobacco Use Status: Former Tobacco user Tobacco use type: Cigarette Years Smoked: 30, started at 10, about 15 cig a day, e-Cigarette/Vaping Use: Currently Using Second Hand Smoke Exposure: Yes Advance Directives Date on File: 12/15/23 service: No Current occupational status: retired Current occupational exposures/hazards: No Cognitive needs: No Hearing needs: No Vision needs: No Review of Systems Const Denies chills, Denies fatigue, Denies fever(s), Denies frequent falls, Denies weakness, Denies weight gain and Denies weight loss ENT Denies dizziness Card Denies chest pain, Denies leg edema, Denies lightheadedness, Denies palpitations, Denies dyspnea, Denies dyspnea on exertion, Denies orthopnea and Denies other (loss of consciousness) Resp Denies cough, Denies dyspnea and Denies dyspnea on exertion GI Denies hematochezia and Denies change in stool character Musc Denies abnormal gait, Denies muscle weakness, Denies numbness, Denies radiating pain into limb and Denies tingling Neuro Denies abnormal gait, Denies dizziness, Denies frequent falls, Denies numbness, Denies tingling and Denies weakness Endo Denies fatigue and Denies palpitations Physical Exam Vital Signs: Last Vital Signs Pulse 62 05/04/25 14:50 BP 108/74 05/04/25 14:50 BMI result Body Mass Index 25.4 Const General: healthy appearing and no acute distress Nutritional Appearance: average body habitus and other (Frail elderly woman) Orientation/consciousness: patient oriented x3 Limitations: ambulation with cane HEENT Head: Yes normal to inspection Eyes General: appearance normal, both eyes and all related structures Neck Neck: Yes normal visual inspection Chest Chest palpation & inspection: normal inspection of the chest Resp Effort & Inspection: normal respiratory effort Auscultation: clear to auscultation bilaterally Cardio Jugular venous distension: no JVD Palpation: normal PMI Rate: regular rate Rhythm: regular rhythm Heart sounds: S1 normal heart sound present, S2 normal heart sound present, no click, no gallops, no murmurs and no rubs GI Inspection: Yes normal to inspection Palpation (GI): Soft to palpation Skin General skin exam: no rashes or lesions noted Neuro General: patient oriented x3 Extrem General: Yes normal to inspection Psych Appearance: grossly normal Assessment & Plan Assessment & Plan (1) Paroxysmal atrial fibrillation: Code(s): I48.0 - Paroxysmal atrial fibrillation Category: Medical Plan: Paroxysmal atrial fibrillation with intermittent episodes of atrial fibrillation noted without any obvious symptoms. She had a high burden of prior Holter monitor. However as she remains asymptomatic and she has issues with blood pressure management at this point time will not change her therapy. If she develops persistent atrial fibrillation and symptoms related to it we discussed about potentially pursuing rhythm control approach. Findings were discussed with patient's granddaughter. Patient does not have any symptoms current point time. Given her high risk and prior CVA she should be on oral anticoagulation therapy for life. This was discussed. Avoidance of stimulants was discussed. Advised to call me with any new symptoms. (2) Orthostatic hypotension: Code(s): I95.1 - Orthostatic hypotension Category: Medical Plan: Prior history of orthostatic hypotension in the setting of known prior hypertension. Probably related to autonomic dysfunction. Advised to maintain adequate hydration which is very important to avoid syncopal episodes. A blood pressure however has normalized since stopping losartan therapy. Continue to hold the same. Orthostatic precautions were discussed. Follow up in the clinic in 1 year's time, sooner p.r.n.. Thank you for allowing me to partake in her care Coding Level of Care Code Est Pt Level 4 (42527) Complex EM visit Add On G2211 Diagnoses Paroxysmal atrial fibrillation I48.0 Orthostatic hypotension I95.1
[2025-05-04 14:50] VITALS: BP 108/74; PULSE 62; BMI 25.4
--- OUTSIDE RECORDS SUMMARY | 2025-05-04 17:11 | XMS_ITS | Patient Health Record ---
[facility] Organization [facility] Address [address] [place] [address] Care Team Providers Care Client Integration Manager Name Role Phone Milana NATARAJAN, Allen Primary Care Provider Desire Arias Unavailable [phone] Allergies No Known Allergies Reason For Referral [...] Problem Acquired hammer toe of right foot (578841292026 9105) Other hammer toe(s) (acquired), right foot (M20.41) Active confirmed Problem Acquired hammer toe of left foot (607418347339 9103) Other hammer toe(s) (acquired), left foot (M20.42) Active confirmed Problem 366150535 Hammer toe of le ft foot (M20.42) Active confirmed Problem 80002502 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.42) Active confirmed Problem 82291643 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.072) Active confirmed Encounters Encounter Location Date Provider Diagnosis [facility] [address] [place] [address] 07/11/2024 Desire Ashford Plan Of Treatment Pending Test Test Name Order Date [id number] NAIL, 6 OR MORE 01/23/2015 02395-Lqwrenus Plate 01/23/2015 84621-Trhnlwwx Plate Each Additional 01/2015 [id number] SKIN LESIONS, OVER 4 01/24/20 15 Insurance Providers Payer Name Payer Address Payer Phone Subscriber Number Group Number Insured Name Patient Relationship to Insured Coverage Start Date Coverage End Date [employer] [address] [place] [address] [phone] [id number] Naty Cervantes Self - patient is the insured Medical (General) History Medical History History ICD Code Chicken pox Measles Mumps Hypertension Thyroid disorder Diabetic Arthritis Back,Hip,and Knee pain CAD (Cholesterol) Gall bladder problems Vascular phlebitis (clots) Stroke Cataracts Hearing loss Surgical History Surgery Date(Month/Year) cholecystectomy hysterectomy 1994 back surgery 1991 gall bladder 1970 cataract surgery Hospitalization History Reason Date[place] [facility] [place]
== END 2025-05-04 15:22 | disposition home or self-care (01) ==
PROVIDERS: PCP Internal Medicine; Visit Provider Internal Medicine Cardiovascular Disease
DX: I48.0 Paroxysmal atrial fibrillation (principal); I95.1 Orthostatic hypotension
CPT/HCPCS: 99214; G2211

== ENCOUNTER → 2025-05-04 14:35 | Outpatient (BNVA) | payer MEDICARE, SELFPAY | PROVIDERS: PCP Internal Medicine; Visit Provider Internal Medicine Cardiovascular Disease | DX: I48.0 Paroxysmal atrial fibrillation (principal); I95.1 Orthostatic hypotension | CPT/HCPCS: 99212 ==

== ENCOUNTER 2025-05-17 11:51 | Outpatient (REF) | payer MEDICARE, SELFPAY ==
[2025-05-17 12:07] LABS: MANUAL DIFF FLAG NO
[2025-05-17 12:32] LABS: Basophils Absolute Auto 0.1 X10*3/uL (0.0-0.2); Basophils Percent Auto 0.7 % (0-2); Eosinophils Absolute Auto 0.1 X10*3/uL (0.0-0.4); Eosinophils Percent Auto 1.1 % (0-4); Hematocrit 34.3 % (37.0-47.0); Hemoglobin 10.6 g/dl (12.0-16.0); Imm Gran Abs Auto 0.02 X10*3/uL (0.00-0.03); Imm Gran Pct Auto 0.3 % (0.0-0.4); Lymphocytes Absolute Auto 1.5 X10*3/uL (1.2-4.9); Lymphocytes Percent Auto 20.3 % (20-40); Mean Corpuscular HGB Conc 30.9 g/dl (31.0-35.0); Mean Corpuscular Hemoglobin 25.1 pg (27.0-33.0); Mean Corpuscular Volume 81.1 fL (80.0-98.0); Mean Platelet Volume 11.3 fL (9.4-12.3); Monocytes Absolute Auto 0.4 X10*3/uL (0.1-1.2); Monocytes Percent Auto 5.2 % (2-11); Neutrophils Absolute Auto 5.2 x10*3/uL (2.0-8.3); Neutrophils Percent Auto 72.4 % (45-73); Platelet Count 261 X10*3/uL (160-400); Red Blood Count 4.23 X10*6/uL (4.20-5.50); Red Cell Distribution Width 17.2 % (11.0-16.0); White Blood Count 7.1 X10*3/uL (4.8-10.8)
[2025-05-17 13:50] LABS: Magnesium 1.4 mg/dL (1.6-2.6)
--- OUTSIDE RECORDS SUMMARY | 2025-05-17 14:06 | XMS_ITS | Patient Health Record ---
Author Organization [facility] Address [address] [place] [address] Care Team Providers Care Science Professor Name Role Phone Milana NATARAJAN, Allen Primary Care Provider Desire Arias Unavailable [phone] Allergies No Known Allergies Reason For Referral [...] Problem Acquired hammer toe of right foot (861055749189 9105) Other hammer toe(s) (acquired), right foot (M20.41) Active confirmed Problem Acquired hammer toe of left foot (975723104305 9103) Other hammer toe(s) (acquired), left foot (M20.42) Active confirmed Problem 200122052 Hammer toe of le ft foot (M20.42) Active confirmed Problem 76765179 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.42) Active confirmed Problem 77442756 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.072) Active confirmed Encounters Encounter Location Date Provider Diagnosis [facility] [address] [place] [address] 07/11/2024 Desire Ashford Plan Of Treatment Pending Test Test Name Order Date [id number] NAIL, 6 OR MORE 01/23/2015 [id number] Plate 01/23/2015 48140-Ohydtile Plate Each Additional 01/2015 [id number] SKIN LESIONS, OVER 4 01/24/20 15 Insurance Providers Payer Name Payer Address Payer Phone Subscriber Number Group Number Insured Name Patient Relationship to Insured Coverage Start Date Coverage End Date [employer]age [address] [place] [address] [id number] Naty Cervantes Self - patient is the insured Medical (General) History Medical History History ICD Code Chicken pox Measles Mumps Hypertension Thyroid disorder Diabetic Arthritis Back,Hip,and Knee pain CAD (Cholesterol) Gall bladder problems Vascular phlebitis (clots) Stroke Cataracts Hearing loss Surgical History Surgery Date(Month/Year) cholecystectomy hysterectomy 1994 back surgery 1991 gall bladder 1970 cataract surgery Hospitalization History Reason Date(Month/Year) [facility] [place]- [place]- rehab
== END 2025-05-17 11:52 | disposition home or self-care (01) ==
LOC: HO.LAB 11:51
PROVIDERS: PCP Internal Medicine; Visit Provider Nurse Practitioner Family
DX: D50.0 Iron deficiency anemia secondary to blood loss (chronic) (principal); E83.42 Hypomagnesemia
CPT/HCPCS: 36415; 83735; 85025

== ENCOUNTER 2025-05-24 11:02 | Inpatient (IN) | payer MEDICARE, SELFPAY ==
[2025-05-24] VITALS (10 sets, daily range): BP systolic 93–194; BP diastolic 6–86; PULSE 56–63; RESP 12–18; TEMP 36.1–36.9; O2SAT 95–100; BMI 29.3; BMI 28.2
--- NOTE | ~2025-05-24 | XR_ITS ---
EXAMINATION: XR KNEE, LEFT CLINICAL INFORMATION: fall COMPARISON: December 15, 2024. TECHNIQUE: AP oblique and lateral views of the left knee. FINDINGS: Joint space narrowing involving medial lateral compartment and patellofemoral joint. No acute cortical disruption or malalignment. Chondrocalcinosis both medial lateral menisci. No suprapatellar bursa joint effusion. Vascular calcifications. Osteopenia versus process. XR/XR knee LT 3V IMPRESSION: Tricompartmental osteoarthrosis without acute fracture or dislocation. Consider CPPD. Peripheral atherosclerosis disease. Probable calcified varices. Electronically signed by: Chavo Payan MD 05/24/2025 12:06 PM EDT
--- NOTE | ~2025-05-24 | XR_ITS ---
EXAMINATION: XR KNEE, RIGHT CLINICAL INFORMATION: fall COMPARISON: August 08, 2022 TECHNIQUE: AP, oblique and lateral views of the right knee. FINDINGS: No acute cortical disruption or malalignment. Joint space narrowing involving medial lateral compartment and patellofemoral joint space. Chondrocalcinosis in both medial and lateral menisci. No suprapatellar bursa joint effusion. Small exostosis at the quadriceps tendon insertion. Vascular calcifications. XR/XR knee RT 3V IMPRESSION: Tricompartment osteoarthrosis without acute fracture or dislocation. Concerning CPPD. Enthesopathy, quadriceps tendon. Peripheral vascular disease. Electronically signed by: Chavo Payan MD 05/24/2025 12:04 PM EDT
--- NOTE | ~2025-05-24 | CT_ITS ---
EXAMINATION: CT HEAD WITHOUT CONTRAST CLINICAL INFORMATION: fall on alisia COMPARISON: April 02, 2025. TECHNIQUE: Contiguous axial imaging was performed from the skull base to vertex without intravenous administration of contrast. This CT examination was performed using dose optimization techniques as appropriate, variously including the following: *Automated exposure control *Adjustment of mA and/or kV according to patient size (this includes techniques or standardized protocols for targeted exams where dose is matched to indication/reason for exam; i.e. extremities or head) *Use of iterative reconstruction technique DLP: 586 mGy-cm FINDINGS: No acute cortical disruption in the bony calvarium. No acute intracranial hemorrhage, mass effect, midline shift, hydrocephalus or herniation. Grade 1 matter differentiation is normal. Bilateral multifocal patchy and confluent deep periventricular white matter hypodensities. Multifocal old lacunar infarcts, right cerebellum, basal ganglia and extracapsular and gilmore radiata white matter. Focal encephalomalacia right frontal opercular/suprainsular external capsule and right parietal. Calcified plaques in the cavernous supracavernous segments both ICAs. Babcock-white matter differentiation is normal. Prominence of the extra-axial CSF spaces cerebral sulci and ventricles. Sellar/suprasellar region demonstrated no gross masses. Craniocervical junction demonstrates normal position of the cerebellar tonsils. No gross air-fluid levels in the included paranasal sinuses. Tympanic cavities and mastoid air cells are aerated. CT/CT head/brain wo IV con IMPRESSION: No acute fracture, bony calvarium. No acute intracranial hemorrhage. Small vessel occlusive disease. Prior vascular insult right MCA territory. Atherosclerosis disease. Electronically signed by: Chavo Payan MD 05/24/2025 12:25 PM EDT
--- NOTE | 2025-05-24 11:11 | ECG_ITS ---
Test Reason : WEAKNESS Blood Pressure : */* mmHG Vent. Rate : 58 BPM Atrial Rate : 58 BPM P-R Int : 186 ms QRS Dur : 92 ms QT Int : 410 ms P-R-T Axes : 34 -19 33 degrees QTcB Int : 402 ms Sinus bradycardia Otherwise normal ECG When compared with ECG of 03-Apr-2025 08:12, Previous ECG has undetermined rhythm, needs review ST no longer depressed in Anterior leads Nonspecific T wave abnormality, improved in Lateral leads Referred By: Morris Aguirre Electronically Signed By: SISI SOSA MD
--- NOTE | 2025-05-24 11:11 | ED_ITS ---
HPI - General Adult General Chief complaint: Fall Stated complaint: fell this morning is on blood thinner Time Seen by Provider: 05/24/25 11:37 Source: patient and family (patient's daughter) Mode of arrival: ambulatory Limitations: no limitations History of Present Illness ED Provider: Jhoana Dill PA-C HPI narrative: Patient is a 79 year old female presenting to ER on 05/24 with chief complaint of fall resulting in bilateral knee pain, left worse than right. She states her foot caught on the carpet this morning and she fell onto her knees. She did not hit her head. She denies dizziness, syncope, or loss of consciousness before or after the fall. She takes Eliquis 5 mg daily. She reports pain in her L knee with movement and weight bearing, and mild discomfort in her R knee with weight bearing. She endorses some lower back pain after lying flat for radiography. She ambulates independently at baseline with a cane or walker. She is accompanied today by her daughter Letty. Patient's daughter states that the patient has been more weak lately and has been having issues with her magnesium for which she is taking 400mg BID. Onset (ago): hour(s) Location: lower extremity (Bilateral knees) Radiation: non-radiation Relieving factors: none Exacerbating factors: none Associated symptoms: denies other symptoms Related Data Home Medications ?Medication ?Instructions ?Recorded ?Confirmed cholecalciferol (vitamin D3) 25 25 mcg PO DAILY 05/04/25 mcg (1,000 unit) tablet (Vitamin D3) cyanocobalamin (vitamin B-12) 250 500 mcg PO DAILY 05/04/25 mcg tablet diclofenac sodium 1 % topical gel 2 g topical QID PRN Pain 04/03/25 05/04/25 gabapentin 300 mg capsule 300 mg PO BEDTIME 04/03/25 0 05/04/25 levothyroxine 112 mcg tablet 112 mcg PO DAILY@0600 11/1605/04/25 loperamide 2 mg capsule 2 mg PO Q4H PRN Constipation 04/03/25 05/04/25 omeprazole 20 mg capsule,delayed 20 mg PO DAILY@0630 0 04/03/25 05/04/25 release sertraline 50 mg tablet 50 mg PO DAILY 04/03/2504/23 Previous Rx's ?Medication ?Instructions ?Recorded pen needle, diabetic 32 gauge x #100 ea 11/05/23 1 (Novofine 32) Stair lift #1 ea 01/19/24 blood-glucose meter (FreeStyle #1 ea 12/07/24 Lite Meter kit) atorvastatin 80 mg tablet 80 mg PO DAILY #90 tabs 01/21 blood sugar diagnostic #100 ea 01/30/25 metformin 1,000 mg tablet 1,000 mg PO BIDWM #180 tabs 01/30/25 psyllium (Hydrocil Instant oral 1 packet PO DAILY #30 ea 04/07/25 packet) ezetimibe 10 mg tablet 10 mg PO BEDTIME #30 tabs magnesium oxide 400 mg PO BID #20 tabs 05/17 apixaban 5 mg tablet (Eliquis) 5 mg PO BID #60 tabs liraglutide 0.6 mg/0.1 mL (18 mg/3 1.2 mg (0.2 mL) sub cut DAILY 30 05/18/25 mL) subcutaneous pen injector days #6 mL Allergies Allergy/AdvReac Type Severity Reaction Status Date / Time amoxicillin (Augmentin) Allergy Unknown hives Verified 05/24/25 11:11 clavulanic acid (Augmentin) Allergy Unknown hives Verified 05/24/25 11:11 furosemide Allergy Unknown unknown Verified 05/24/25 11:11 latex (LATEX) Allergy Unknown UNKNOWN Verified 05/24/25 11:11 lisinopril Allergy Unknown Unknown Verified 05/24/25 11:11 oxycodone (Percocet) Allergy Unknown Stomach Verified 05/24/25 11:11 upset tramadol Allergy Unknown Stomach Verified 05/24/25 11:11 uspet Review of Systems 2 Constitutional: Constitutional: Reports no additional constitutional complaints, Denies chills, Denies fever(s), Denies night sweats and Reports weakness Eyes: Eyes: Reports no additional eye complaints, Denies blurry vision, Denies change in vision, Denies diplopia, Denies eye discharge, Denies loss of vision and Denies eye pain ENT: Denies dizziness Cardiovascular: Cardiovascular: Reports no additional cardiovascular complaints, Denies chest pain, Denies lightheadedness, Denies Loss of Consciousness and Denies dyspnea Respiratory: Respiratory: Reports no additional respiratory complaints and Denies dyspnea Gastrointestinal: Gastrointestinal: Reports no additional gastrointestinal complaints, Denies abdominal pain, Denies melena, Denies hematochezia, Denies change in bowel habits and Denies change in stool character Genitourinary: Genitourinary: Denies hematuria, Denies urinary frequency, Denies dysuria, Denies urinary incontinence, Denies urinary hesitancy and Denies urinary urgency Musculoskeletal: Musculoskeletal: Reports as per HPI, Denies numbness and Denies tingling Comments: bilateral knee pain Neurologic: Denies dizziness, Denies loss of vision, Denies numbness, Denies tingling and Reports weakness Psychiatric: Psychiatric: Reports no additional psychiatric complaints Endocrine: Endocrine: Reports no additional endocrine complaints Hematologic/Lymphatic: Hematologic/Lymphatic: Reports no additional hematologic/lymphatic complaints Allergic/Immunologic: Allergic/Immunologic: Reports no additional allergic/immunologic complaints PMFSH Past Medical History Attestation statement: The following information was validated with the patient. (all information validated with the patient's daughter) Source: old records reviewed, obtained from family (patient's daughter provided additional history and confirmed the history provided by the patient. ) and nursing notes reviewed Medical History Paroxysmal atrial fibrillation Orthostatic hypotension Anemia Buttock wound Obesity (BMI 30-39.9) Neuropathy Acquired hypothyroidism Mixed hyperlipidemia Essential hypertension Atrial fibrillation Hypothyroidism Obesity Type 2 diabetes mellitus with morbid obesity Annual physical exam Vitamin D deficiency HLD (hyperlipidemia) T2DM (type 2 diabetes mellitus) Diabetes mellitus Hypertension Surgical History H/O hysterectomy for benign disease History of vitrectomy History of surgery History of colonoscopy (~01/28/19) History of appendectomy History of cholecystectomy S/P JOSIE (total abdominal hysterectomy) Family History Family History Father Diabetes Mother CHF (congestive heart failure) CVD (cardiovascular disease) Brother HIV (human immunodeficiency virus infection) Social History Social History Household Members: Family Housing: Homeless Do you presently have visiting nurse or other home services: No Alcohol intake: current Patient Tobacco Use Status: Former Tobacco user Tobacco use type: Cigarette Years Smoked: 30, started at 10, about 15 cig a day, e-Cigarette/Vaping Use: Currently Using Second Hand Smoke Exposure: Yes Advance Directives: Yes Advance Directives on File: Yes Advance Directives Date on File: 12/15/23 Do you have a plan to hurt others: No Plan service: No Current occupational status: retired Current occupational exposures/hazards: No Cognitive needs: No Hearing needs: No Vision needs: No Physical Exam ED Vital Signs: Vital Signs - 24 hr 05/24/25 11:08 05/24/25 12:38 05/24/25 12:41 Temperature 97.6 F Pulse Rate 60 60 59 Respiratory Rate 18 Blood Pressure 93/54 L 164/6 H 153/61 H Pulse Oximetry 97 Oxygen Delivery Method Room Air 05/24/25 12:44 05/24/25 12:49 Temperature Pulse Rate 56 59 Respiratory Rate 16 Blood Pressure 146/67 H 146/67 H Pulse Oximetry 100 Oxygen Delivery Method Room Air BMI result Body Mass Index 29.3 Const General: cooperative, no acute distress, alert and awake Nutritional Appearance: well nourished Orientation/consciousness: patient oriented x3 HENMT Head: Yes normal to inspection and Yes atraumatic Ears: hearing grossly normal bilaterally and external ears normal General nose exam: Normal external nose present, no nasal discharge noted and no epistaxis Face and sinus: Yes normal facial exam, No abrasion and No laceration Mouth: Normal oral and palatal mucosa present, no drooling and no muffled voice Eyes General: appearance normal, both eyes and all related structures Periorbital: periorbital findings normal Eyelids: Yes eyelids normal Conjunctivae: conjunctivae normal Pupils: Equal, round and reactive pupils present EOM: EOMs intact bilaterally Neck Neck: Yes normal visual inspection, Yes full ROM and Yes no lymphadenopathy Resp Effort & Inspection: normal respiratory effort and able to speak in complete sentences Neuro General: patient oriented x3, moves all extremities and CN's II-XI intact bilaterally Cranial nerves: Yes Equal, round and reactive pupils present Cognition (Neuro): normal cognition Extrem General: Yes normal to inspection, Yes full ROM and Yes capillary refill normal Left lower extremity: knee (No edema, ecchymoses, open wounds visible bilaterally. ) Details: abnormal to inspection (Mild 2 cm area of erythema overlying distal patella bilaterally), tenderness (Tender to palpation over distal aspect of patella bilaterally.) and swelling (No swelling appreciated bilaterally.) Psych Appearance: grossly normal Mental Status: mental status grossly normal Affect: normal affect Attitude: cooperative Thought process: Normal thought process present Thought content: Normal thought content present Insight: Good insight present (Psych) Course Course Course Narrative: RME, this is a rapid medical exam performed by Doni Aguirre please refer to primary provider for complete H&P- 79 old female presents for evaluation after a fall. She does have a history of paroxysmal AFib in his on Eliquis. She reports losing her balance this morning and falling onto her knees. Her elbows landed on the couch. She denies hitting her head or losing consciousness. Plan for labs, EKG, UA and a CT scan of the brain given the fall on Eliquis Medications Administered Generic Name Dose Route Start Last Admin Trade Name Freq PRN Reason Stop Dose Admin Sodium Chloride 3 ml 05/24/25 16:00 05/24/25 15:18 0.9 % Sodium Chloride Flush 3 Ml Syringe IVFLUSH Not Given QSHIFT CONNER Discontinued Medications Generic Name Dose Route Start Last Admin Trade Name Freq PRN Reason Stop Dose Admin Sodium Chloride 1,000 mls @ 999 mls/hr 05/24/25 12:15 05/24/25 12:36 Ns IV 05/24/25 13:15 Not Given .Q1H1M CONNER Magnesium Sulfate 2 gm in 50 mls @ 25 mls/hr 05/24/25 13:21 05/24/25 14:47 Magnesium Sulfate/H2o IV 05/24/25 15:20 25 mls/hr ONCE ONE Administration Medical Decision Making Medical Decision Making [facility] Narrative: Patient is a 79 year old assigned female at with a history of HTN, HLD, DM, hypothyroidism, CVA, and paroxysmal atrial fib on eliquis presenting to the emergency department today with a fall and weakness. Patient's physical exam was unremarkable. Patient's blood work showed a hypomagnesemia at 1.2 and calcium of 10.7. Patient's EKG was unremarkable. Patient's bilateral knee x-rays showed no acute process but did show arthritis. Patient's CT head was unremarkable. Patient given IV magnesium. I spoke with the hospitalist team and given the patient remains to have low magnesium despite PO supplementation, they agreed to admission. I explained my physical exam findings as well as all test results to the patient and the patient's daughter. I answered all questions asked by the patient and the patient's daughter. Patient and the patient's daughter verbalized agreement and understanding with this treatment plan and discharge. Differential Diagnosis Differential Diagnoses: The differential diagnosis associated with the presentation includes Mechanical fall Hypomagnesemia Hypercalcemia Admission/Observation Consideration of admission/observation: Escalation of care including admission/observation considered Patient admitted as noted in the MDM Rationale portion of this note. Consult Healthcare Provider Management of the patient was discussed with: Hospitalist (agreed to admission as noted in the MDM Rationale portion of this note. ) Lab Data [facility] Lab Attestation statement: I reviewed the patient's lab results. My interpretation of these results are in the MDM Rationale portion of this note. 05/24/25 11:26 05/24/25 11:26 Labs: Lab Results 05/24/25 Range/Units 11:26 WBC 8.4 (4.8-10.8) X10*3/uL RBC 4.01 L (4.20-5.50) X10*6/uL Hgb 10.1 L (12.0-16.0) g/dl Hct 32.8 L (37.0-47.0) % MCV 81.8 (80.0-98.0) fL MCH 25.2 L (27.0-33.0) pg MCHC 30.8 L (31.0-35.0) g/dl RDW 16.9 H (11.0-16.0) % Plt Count 258 (160-400) X10*3/uL MPV 11.3 (9.4-12.3) fL Immature Gran % (Auto) 0.5 H (0.0-0.4) % Neut % (Auto) 71.2 (45-73) % Lymph % (Auto) 20.1 (20-40) % Obion % (Auto) 6.6 (2-11) % Eos % (Auto) 1.0 (0-4) % Baso % (Auto) 0.6 (0-2) % Lymph # (Auto) 1.7 (1.2-4.9) X10*3/uL Obion # (Auto) 0.6 (0.1-1.2) X10*3/uL Eos # (Auto) 0.1 (0.0-0.4) X10*3/uL Baso # (Auto) 0.1 (0.0-0.2) X10*3/uL Abs Immat Gran (auto) 0.04 H (0.00-0.03) X10*3/uL Absolute Neuts (auto) 6.0 (2.0-8.3) x10*3/uL Absolute Nucleated RBC 0.000 (0.0-0.012) X10*3/uL Nucleated RBC % (auto) 0.0 (0.0-0.2) /100WBC Sodium 140 (135-145) mmol/L Potassium 3.8 (3.3-5.1) mmol/L Chloride 103 (96-108) mmol/L Carbon Dioxide 29 (22-29) mmol/L Anion Gap 12 (12-20) BUN 22 H (9-16) mg/dL Creatinine 0.85 (0.5-1.4) mg/dL Estim Creat Clear Calc 46.2 Estimated GFR > 60 Random Glucose 117 H (60-115) mg/dL Calcium 10.7 H D (8.4-10.2) mg/dL Magnesium 1.2 L* (1.6-2.6) mg/dL Total Bilirubin 0.3 (0.0-1.0) mg/dL AST 37 H (5-31) U/L ALT 25 (0-31) U/L Alkaline Phosphatase 193 H (39-117) U/L Total Creatine Kinase 46 (26-140) U/L Total Protein 6.3 L (6.5-8.0) g/dL Albumin 3.9 (3.5-5.0) g/dL Independent Interpretation I performed an independent interpretation of an: EKG, Plain X-Ray and CT Scan Interpretation: My interpretation is in agreement with the radiologist's impression of these imaging studies. L EXAMINATION: XR KNEE, RIGHT CLINICAL INFORMATION: fall COMPARISON: August 08, 2022 TECHNIQUE: AP, oblique and lateral views of the right knee. FINDINGS: No acute cortical disruption or malalignment. Joint space narrowing involving medial lateral compartment and patellofemoral joint space. Chondrocalcinosis in both medial and lateral menisci. No suprapatellar bursa joint effusion. Small exostosis at the quadriceps tendon insertion. Vascular calcifications. XR/XR knee RT 3V IMPRESSION: Tricompartment osteoarthrosis without acute fracture or dislocation. Concerning CPPD. Enthesopathy, quadriceps tendon. Peripheral vascular disease. Electronically signed by: Chavo Payan MD 05/24/2025 12:04 PM EDT RP Dictated By: Chavo Jordan MD Signed By: Electronically signed by Chavo Priest MD 05/24/25 1204 EXAMINATION: XR KNEE, LEFT CLINICAL INFORMATION: fall COMPARISON: December 15, 2024. TECHNIQUE: AP oblique and lateral views of the left knee. FINDINGS: Joint space narrowing involving medial lateral compartment and patellofemoral joint. No acute cortical disruption or malalignment. Chondrocalcinosis both medial lateral menisci. No suprapatellar bursa joint effusion. Vascular calcifications. Osteopenia versus process. XR/XR knee LT 3V IMPRESSION: Tricompartmental osteoarthrosis without acute fracture or dislocation. Consider CPPD. Peripheral atherosclerosis disease. Probable calcified varices. Electronically signed by: Chavo Payan MD 05/24/2025 12:06 PM EDT RP Dictated By: Chavo Jordan MD Signed By: Electronically signed by Chavo Priest MD 05/24/25 1206 Report Number: [id number]: Total DLP = 586.00 mGy-cm EXAMINATION: CT HEAD WITHOUT CONTRAST CLINICAL INFORMATION: fall on eliquis COMPARISON: April 02, 2025. TECHNIQUE: Contiguous axial imaging was performed from the skull base to vertex without intravenous administration of contrast. This CT examination was performed using dose optimization techniques as appropriate, variously including the following: *Automated exposure control *Adjustment of mA and/or kV according to patient size (this includes techniques or standardized protocols for targeted exams where dose is matched to indication/reason for exam; i.e. extremities or head) *Use of iterative reconstruction technique DLP: 586 mGy-cm FINDINGS: No acute cortical disruption in the bony calvarium. No acute intracranial hemorrhage, mass effect, midline shift, hydrocephalus or herniation. Grade 1 matter differentiation is normal. Bilateral multifocal patchy and confluent deep periventricular white matter hypodensities. Multifocal old lacunar infarcts, right cerebellum, basal ganglia and extracapsular and gilmore radiata white matter. Focal encephalomalacia right frontal opercular/suprainsular external capsule and right parietal. Calcified plaques in the cavernous supracavernous segments both ICAs. Babcock-white matter differentiation is normal. Prominence of the extra-axial CSF spaces cerebral sulci and ventricles. Sellar/suprasellar region demonstrated no gross masses. Craniocervical junction demonstrates normal position of the cerebellar tonsils. No gross air-fluid levels in the included paranasal sinuses. Tympanic cavities and mastoid air cells are aerated. CT/CT head/brain wo IV con IMPRESSION: No acute fracture, bony calvarium. No acute intracranial hemorrhage. Small vessel occlusive disease. Prior vascular insult right MCA territory. Atherosclerosis disease. Electronically signed by: Chavo Payan MD 05/24/2025 12:25 PM EDT Dictated By: Chavo Jordan MD Signed By: Electronically signed by Chavo Priest MD 05/24/25 1225 I independently interpreted this EKG and am in agreement with the below findings: Vent. Rate: 58 BPM Atrial Rate: 58 BPM P-R Int: 186 ms QRS Dur: 92 ms QT Int: 410 ms P-R-T Axes: 34 -19 33 degrees QTcB Int: 402 ms Sinus bradycardia Otherwise normal ECG When compared with ECG of 03-Apr-2025 08:12, Previous ECG has undetermined rhythm, needs review ST no longer depressed in Anterior leads Nonspecific T wave abnormality, improved in Lateral leads Referred By: Morris Aguirre Electronically Signed By: RUIZ SOSA MD Dictated By: Ruiz Sosa MD Signed By: Electronically signed by Ruiz Sosa MD 05/24/25 1446 Radiology Impression Discussion of test interpretation with radiology: I have reviewed the radiologist's reading. Independent Historian Clinical information obtained from an independent historian. History obtained from or confirmed by: Other (patient's daughter provided additional history and confirmed the history provided by the patient. ) Critical Care Time Critical Care Time Critical Care Time: Yes Total Critical Care Time: 38 Attestation: I spent 38 minutes of Critical Care Time with this patient. This does not include time spent on separately reported billable procedures. Discharge Plan Discharge Clinical Impression: Accident due to mechanical fall without injury, Hypercalcemia, Hypomagnesemia Patient Disposition: Admitted As Inpatient
[2025-05-24 11:44] LABS: MANUAL DIFF FLAG NO
[2025-05-24 11:45] LABS: Hematocrit 32.8 % (37.0-47.0); Hemoglobin 10.1 g/dl (12.0-16.0); Imm Gran Abs Auto 0.04 X10*3/uL (0.00-0.03); Imm Gran Pct Auto 0.5 % (0.0-0.4); Lymphocytes Absolute Auto 1.7 X10*3/uL (1.2-4.9); Mean Corpuscular HGB Conc 30.8 g/dl (31.0-35.0); Mean Corpuscular Hemoglobin 25.2 pg (27.0-33.0); Mean Corpuscular Volume 81.8 fL (80.0-98.0); NRBC Abs Auto 0.000 X10*3/uL (0.0-0.012); NRBC Pct Auto 0.0 /100WBC (0.0-0.2); Platelet Count 258 X10*3/uL (160-400); Red Blood Count 4.01 X10*6/uL (4.20-5.50); White Blood Count 8.4 X10*3/uL (4.8-10.8)
[2025-05-24 12:05] LABS: Alanine Aminotransferase 25 U/L (0-31); Albumin Level 3.9 g/dL (3.5-5.0); Alkaline Phosphatase 193 U/L (39-117); Anion Gap 12 (12-20); Aspartate Amino Transferase 37 U/L (5-31); Blood Urea Nitrogen 22 mg/dL (9-16); Calcium 10.7 mg/dL (8.4-10.2); Carbon Dioxide 29 mmol/L (22-29); Chloride 103 mmol/L (96-108); Creatinine Clr Calc Pharmacy 46.2; Estimated Glomerular Filt Rate > 60; Potassium 3.8 mmol/L (3.3-5.1); Sodium 140 mmol/L (135-145); Total Protein 6.3 g/dL (6.5-8.0)
--- OUTSIDE RECORDS SUMMARY | 2025-05-24 12:36 | XMS_ITS | Patient Health Record ---
Author Organization [facility] Address [address] [place] [address] Care Team Providers Care Woodworker Name Role Phone Milana NATARAJAN, Allen Primary Care Provider Desire Arias Unavailable [phone] Allergies No Known Allergies Reason For Referral No Information Medications Medication SIG (Take, Route, Frequency, Duration) Notes Start Date End Date Status Levothyroxine Sodium 125 MCG 1 tablet in the morning on an empty stomach Orally Once a day; Duration: 30 day(s) Active Warfarin Sodium Unkn own [...] innersoles . for 1 year . Dx: 250.61,735.4,701; Duration: . Unknown Rosuvastatin Calcium 20 MG 1 tablet Orally Once a day; Duration: 30 day(s) Active Ezetimibe 10 MG 1 tablet Orally Once a day; Duration: 30 day(s) Active Losartan Potassium 25 MG 1 tablet Orally Once a day; Duration: 30 day(s) Active amLODIPine Besylate 10 MG 1 tablet Orall y Once a day; Duration: 30 day(s) Active metFORMIN HCl 1000 MG 1 tablet with a meal Orally Once a day; Duration: 30 day(s) Active HumaLOG 15 units 3x [...] 100 MG 1 capsule Orally Once a day; Duration: 30 day(s) once a day Active Lantus Unknown Immunizations Vaccine Route Administration Date Status [facility] COVID[facility]19 Moderna Vaccine Unknown 09/12/2021 Administered First [...] Problem Acquired hammer toe of right foot (1009834009623878 ) Other hammer toe(s) (acquired), right foot (M20.41) Active confirmed Problem Acquired hammer toe of left foot (9933829322227429 ) Other hammer toe(s) (acquired), left foot (M20.42) Active confirmed Problem Acquired hammer toe of left foot (6009236376377722 ) Hammer toe of left foot (M20.42) Active confirmed Problem Polyneuropathy due to type 2 diabetes mellitus (479470757) 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.42) Active confirmed Problem Localized, primary osteoarthritis of the ankle and/or foot (644379203) Osteoarthritis of left ankle and foot (M19.072) Active confirmed Encounters Encounter Location Date Provider Diagnosis [facility] [address] [place] [address] 07/11/2024 Desire Ashford Plan Of Treatment Pending Test Test Name Order Date [id number] NAIL, 6 OR MORE 01/23/2015 61714-Kkfmwwid Plate 01/23/2015 51471-Fyurbznq Plate Each Additional 01/2015 59462-METT SKIN LESIONS, OVER 4 01/24/20 15 Insurance Providers Payer Name Payer Address Payer Phone Subscriber Number Group Number Insured Name Patient Relationship to Insured Coverage Start Date Coverage End Date [employer] [address] [place] [address] [id number] Naty Cervantes Self - patient is the [...]
--- OUTSIDE RECORDS SUMMARY | 2025-05-24 12:37 | XMS_ITS | Encounter Summary ---
Author Organization [facility] Address [address] [place] [id number] Care Team Providers Care Steward/Stewardess [employer] Name Role Phone Trevor Rios MD Primary Care Provider [phone] Encounter Details Date Type Department Care Team (Late st Contact Info) Description 04/16/2025 Lab Requisition [facility] - Main Lab [address] [place] [address] Bruce Welch MD [address] [place], [place] [id number] Vitamin D deficiency, unspecified; Essential (primary) hypertension; Unspecified atrial fibrillation (CMS/HCC V24, CMS/HCC V28); Type 2 diabetes mellitus without complications (CMS/HCC V24, CMS/HCC V28) Social History Tobacco Use Types Packs/Day Years Used Date Smoking Tobacco: Never Assessed Comments Unknown Sex and Gender Information Value Date Recorded Sex Assigned at Not on file Legal Sex Female 3:06 PM EST Gender Identity Not on file Sexual Orientation Not on file documented as of this encounter Plan of Treatment Not on file documented as of this encounter Procedures Procedure Name Priority Date/Time Associated Diagnosis Comments COMPLETE BLOOD COUNT Routine 04/18/2025 6:41 AM EDT Vitamin D deficiency, unspecified Essential (primary) hypertension Unspecified atrial fibrillation (CMS/HCC V24, CMS/HCC V28) Type 2 diabetes mellitus without complications (CMS/HCC V24, CMS/HCC V28) BASIC METABOLIC PANEL Routine 04/18/2025 6:41 AM EDT Vitamin D deficiency, unspecified Essential (primary) hypertension Unspecified atrial fibrillation (CMS/HCC V24, CMS/HCC V28) Type 2 diabetes mellitus without complications (CMS/HCC V24, CMS/HCC V28) documented in this encounter Results * Basic metabolic panel (04/18/2025 6:41 AM EDT) Sodium 138 133 - 145 mmol/L LAB CHEMISTRY METHOD 04/18/2025 12:48 PM [facility] Potassium 4.5 3.5 - 5.5 mmol/L LAB CHEMISTRY METHOD 04/18/2025 12:48 PM [facility] Chloride 102 96 - 110 mmol/L LAB CHEMISTRY METHOD 04/18/2025 12:48 PM [facility] CO2 26 21 - 32 mmol/L LAB CHEMISTRY METHOD 04/18/2025 12:48 PM [facility] Anion Gap 10 3 - 11 LAB CHEMISTRY METHOD 04/18/2025 12:48 PM [facility] Glucose 73 70 - 100 mg/dL LAB CHEMISTRY METHOD 04/18/2025 12:48 PM [facility] BUN 16 5 - 25 mg/dL LAB CHEMISTRY METHOD 04/18/2025 12:48 PM [facility] Creatinine 0.68 0.50 - 1.10 mg/dL LAB CHEMISTRY METHOD 04/18/2025 12:48 PM [facility] eGFR 89 >=60 mL/min/1. 73m2 LAB CHEMISTRY METHOD 04/18/2025 12:48 PM [facility] Comment:Calculation based on the Chronic Kidney Disease Epidemiology Collaboration (CKD-EPI) equation refit without adjustment for race. BUN/Creatinine Ratio 23.5 LAB CHEMISTRY METHOD 04/18/2025 12:48 PM [facility] Calcium 9.2 8.5 - 10.5 mg/dL LAB CHEMISTRY METHOD 04/18/2025 12:48 PM [facility] Blood Venous blood specimen / Unknown Venipuncture / Unknown 04/18/2025 6:41 AM EDT 04/18/2025 10:47 AM EDT us Bruce Welch MD LAB BLOOD ORDERABLES Final Resul t [facility] [address] [place] [address], [place] [phone] * (ABNORMAL) Complete blood count (04/18/2025 6:41 AM EDT) WBC 8.4 4.8 - 10.8 K/mcL LAB HEMETOLOGY METHOD 04/18/2025 12:24 PM EDT [facility] RBC 3.60(L) 3.80 - 4.80 M/mcL LAB HEMETOLOGY METHOD 04/18/2025 12:24 PM EDT [facility] Hemoglobin 8.7(L) 11.5 - 16.0 g/dL LAB HEMETOLOGY METHOD 04/18/2025 12:24 PM EDT [facility] Hematocrit 29.8(L) 35.0 - 47.0 % LAB HEMETOLOGY METHOD 04/18/2025 12:24 PM EDT [facility] MCV 83.7 79.0 - 98.0 FL LAB HEMETOLOGY METHOD 04/18/2025 12:24 PM EDT [facility] MCH 24.4(L) 27.0 - 32.0 pcg LAB HEMETOLOGY METHOD 04/18/2025 12:24 PM EDT [facility] MCHC 29.2(L) 32.0 - 37.0 g/dL LAB HEMETOLOGY METHOD 04/18/2025 12:24 PM EDT [facility] RDW 15.3(H) 11.0 - 15.0 % LAB HEMETOLOGY METHOD 04/18/2025 12:24 PM EDT [facility] Platelets 411(H) 130 - 400 K/mcL LAB HEMETOLOGY METHOD 04/18/2025 12:24 PM EDT [facility] MPV 11.1(H) 7.0 - 11.0 FL LAB HEMETOLOGY METHOD 04/18/2025 12:24 PM EDT [facility] NRBC 0.0 <1.0 % LAB [facility] METHOD 04/18/2025 12:24 PM EDT [facility] NRBC Absolute 0.00 <0.10 K/mcL LAB HEMETOLOGY METHOD 04/18/2025 12:24 PM EDT [facility] Blood Venous blood specimen / Unknown Venipuncture / Unknown 04/18/2025 6:41 AM EDT 04/18/2025 10:47 AM EDT Bruce Welch MD LAB BLOOD ORDERABLES Final Resul t [facility] [address] [place] [address], documented in this encounter Visit Diagnoses Diagnosis Vitamin D deficiency, unspecified Essential (primary) hypertension Unspecified essential hypertension Unspecified atrial fibrillation (CMS/HCC V24, CMS/HCC V28) Type 2 diabetes mellitus without complications (CMS/HCC V24, CMS/HCC V28) documented in this encounter Care Teams Steward/Stewardess [employer] Relationship Specialty Start Date End Date Trevor Rios MD PCP - General Internal Medicine 09/02/24 documented as of this encounter
--- OUTSIDE RECORDS SUMMARY | 2025-05-24 12:37 | XMS_ITS | Clinical Summary ---
Author Organization [facility] Address [address] [place] [address] Care Team Providers Care Pc Network Technician Name Role Phone Allen Cortés MD Primary Care Provider [phone] Allergies No known active allergies Medications ezetimibe [...] Years Used Date Smoking Tobacco: Never Assessed [facility] Utilities Answer Date Recorded In the [...] to sleep or slept in a senior care (including now)? No 06/27/2024 Comments Unknown Sex [...] 62 06/29/2024 8:00 AM EDT Temperature 36.8 C (98.2 F) 06/29/2024 8:00 AM EDT Respiratory Rate 18 06/29/2024 8:00 [...] Patients (1 - 1-dose 75+ series) 2020 COVID-19 Vaccine (2 - 2023-2 5 season) 2024 09/12/2021 Hemoglobin A1C 12/28/2024 06/27/2024 Influenza Vaccine 06/23/2025 Lipid Panel 06/27/2025 06/27/2024 Creatinine with GFR [...] 65 - 99 mg/dL 06/29/2024 12:04 PM [facility] Comment:Fasting: <100 mg/dL, Non-Fasting: <200 mg/dL (ADA 2004) Blood Urea Nitrogen (BUN) 12 8 - 21 mg/dL 06/29/2024 12:04 PM [facility] Creatinine 0.8 0.4 - 1.1 mg/dL 06/29/2024 12:04 PM [facility] eGFR 75 >59 06/29/2024 12:04 PM [facility] Comment:CKD-EPI (2020) in mL /min/1.73 sq meters. Sodium 140 136 - 145 mmol/L 06/29/2024 12:04 PM [facility] Potassium 4.3 3.4 - 5.3 mmol/L 06/29/2024 12:04 PM [facility] Chloride 104 98 - 107 mmol/L 06/29/2024 12:04 PM [facility] CO2 23 22 - 33 mmol/L 06/29/2024 12:04 PM [facility] Anion Gap 13 7 - 17 06/29/2024 12:04 PM [facility] Calcium 8.9 8.7 - 10.5 mg/dL 06/29/2024 12:04 PM [facility] BUN/Creatinine Ratio 15 10.0 - 25.0 Ratio 06/29/2024 12:04 PM [facility] Blood (Plasma/Serum) 06/29/2024 10:27 AM EDT 06/29/2024 11:25 AM EDT us Byron Victoria MD LAB BLOOD ORDERABLES Final Resu lt Performing Organization Address City/[facility]/[place] [address], [place] [address] * (ABNORMAL) Hemoglobin A1c with Estimated Average Glucose (06/27/2024 8:21 AM EDT) Hemoglobin A1C 7.0(H) <5.7 % 06/27/2024 9:07 AM [facility] Comment: A1c% Interpretation 5.7 - 6.0 Increase risk of diabetes 6.1 - 6.4 Higher risk of diabetes > or = 6.5 Consistent with diabetes Diabetes Care, 33(Supp 1):S1-S61, 2010 Estimated Average Glucose 154 mg/dL 06/27/2024 9:07 AM [facility] Blood Blood specimen / Unknown 06/27/2024 8:21 AM EDT 06/27/2024 8:32 AM EDT Paul Ospina MD LAB BLOOD ORDERABLES Final Result Performing Organization Address City/[facility]/[place] [address], [place] [address] * (ABNORMAL) Lipid Panel (06/27/2024 8:21 AM EDT) Cholesterol, Total 141 <200 mg/dL 2023 9:18 AM [facility] Triglycerides 169(H) <150 mg/dL 06/27/2024 9:18 AM [facility] Cholesterol, HDL 58 >39 mg/dL 06/27/20 9:18 AM [facility] Estimated LDL 49 <130 mg/dL 06/27/2024 9:18 AM [facility] Comment: NCEP Guidelines: < 100 mg/dL Optimal 100 - 129 mg/dL Near Optimal/Above Optimal 130 - 159 mg/dL Borderline High 160 - 189 mg/dL High >/= 190 mg/dL Very High Cholesterol/HDL Ratio 2.4 0.0 - 5.0 Ratio 06/27/2024 9:18 AM [facility] Comment: Relative Risk Ratio - Male Ratio - Female 0.5 3.4 3.3 1.0 5.0 4.4 2.0 9.6 7.1 3.0 23.4 11.0 Blood (Plasma/Serum) 06/27/2024 8:21 AM EDT 06/27/2024 8:32 AM EDT Paul Ospina MD LAB BLOOD ORDERABLES Final Result [facility] [address] [place] [address], [facility] [address] [place] [address] from Last 3 Months or Most Recently Relevant to Health Maintenance Insurance MEDICARE PART A & B [facility] MEDICARE Advance Directives * DNR (Latest Code Status on File) Date Activated Date Inactivated Comments 06/27/2024 4:12 PM Question Answer Comments Decision thoroughly discussed with: Gail ent arrived with valid State of [place] DNR Transfer form * Full Code Date Activated Date Inactivated Comments 06/26/2024 8:41 PM 06/27/2024 4:12 PM Care Teams Pc Network Technician Relationship Specialty Start Date End Date Allen Cortés MD [address] [place] [address] PCP - General 06/26/24
--- OUTSIDE RECORDS SUMMARY | 2025-05-24 12:37 | XMS_ITS | Patient Health Record ---
Author Organization [facility] Address [address] [place] [id number] Care Team Providers Care Medical Insurance Biller Name Role Phone Wilbur Velázquez M.D. Primary Care Provider Erna Obrien Jr Desean Unavailable Allergies Allergen (clinical drug ingredient) Drug/Non Drug Allergy documented on EMR Reaction Allergy Type Onset Date Status tramadol Tramadol HCl Unknown Drug Allergy Acti ve Lisinopril Unknown Drug Allergy Active furosemide Furosemide Unknown Drug Allergy Activ e Reason For Referral No Information Medications Medication SIG (Take, Route, Frequency, Duration) Notes Start Date End Date Status Lantus 100 UNIT/ML 60-65 units Subcutaneous QHS Active HumaLOG 100 UNIT/ML 10/15 units Subcutaneous TID Active Pravastatin Sodium 40 MG 1 tablet Orally Once a day Active amLODIPine Besylate 10 MG 1 tablet Orall y Once a day Active hydroCHLOROthiazide 12.5 MG 1 tablet in the morning Orally Once a day Active metFORMIN HCl 1000 MG 1 tablet with a me al Orally BID Active Levothyroxine Sodium 125 MCG 1 tablet on an empty stomach in the morning Orally Once a day Active Aleve 220 MG 1 tablet with food o r milk as needed Orally every 12 hrs/prn Active Vitamin D3 33482 UNIT 1 capsule Orally O nce a day Active Golytely 236 GM as directed before colonoscopy Orally every 15 minutes for 1 day(s) Active Social History Tobacco Use: Social History Observation Description Date Details (start date - stop date) Former Smoker NA - NA Tobacco Use/Smoking Question Answer Notes Patient is a former smoker How long has it been since you last smoked? 5-10 years Alcohol Screen Question Answer Notes Did you have a drink containing alcohol in the p ast year? 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-inflammato rex (NSAID) (Z79.1) Active confirmed Problem 401708021 MCC (current) use of insulin (Z79.4) Active confirmed Plan Of Treatment Future Test Test Name Order Date COLONOSCOPY 06/09/2018 Insurance Providers Payer Name Payer Address Payer Phone Subscriber Number Group Number Insured Name Patient Relationship to Insured Coverage Start Date Coverage End Date [facility] [address] [place] [phone] [phone] [id number] ALFONSO CUNHA Self - patient is the insured Medical (General) History Medical History History ICD Code hypertension diabetes mellitus elevated cholesterol hypothyroidism arthritis Surgical History Surgery Date(Month/Year) hysterectomy back surgery cholecystectomy cataract-lens implants both eyes
--- OUTSIDE RECORDS SUMMARY | 2025-05-24 12:37 | XMS_ITS ---
Author Name [facility] Organization Unknown Results Test Name/Text Value Interpretation Date Range Source Magnesium SerPl-mCnc 1.6 mg/dL Normal 06/29/2024 1.6 - 2. 7 [facility] Phosphate SerPl-mCnc 3.7 mg/dL Normal 06/29/2024 2.7 - 4. 5 H[facility] CO2 SerPl-sCnc 23.0 mmol/L Normal 06/29/2024 22 - 33 HH CCT BUN SerPl-mCnc 12.0 mg/dL Normal 06/29/2024 8 - [address] Creat SerPl-mCnc 0.8 mg/dL Normal 06/29/2024 0.4 - 1.1 HH CCT Calcium SerPl-mCnc 8.9 mg/dL Normal 06/29/2024 8.7 - 10.5 HHCCT BUN/Creat SerPl 15.0 Ratio Normal 06/29/2024 10 - 25 HH CCT Potassium SerPl-sCnc 4.3 mmol/L Normal 06/29/2024 3.4 - 5 .3 H[facility]CT Sodium SerPl-sCnc 140.0 mmol/L Normal 06/29/2024 136 - 14 5 H[facility]CT Chloride SerPl-sCnc 104.0 mmol/L Normal 06/29/2024 98 - 1 07 H[facility]CT GFR/BSA.pred SerPlBld [id number] 75.0 Normal 06/29/2024 59 - HHCCT Glucose SerPl-mCnc 179.0 mg/dL Above high normal 06/29/2024 65 - 99 H[facility] Anion Gap Bld-sCnc 13.0 Normal 06/29/2024 7 - 17 H[facility] MCV RBC Auto 85.0 fL Normal 06/29/2024 80 - 100 H[facility]CT Hgb Bld-mCnc 11.3 g/dL Below low normal 06/29/2024 11.7 - 15 .7 H[facility]CT Platelet num Bld Auto 201.0 Thou/uL Normal 06/29/2024 150 - 450 H[facility]CT WBC num Bld Auto 7.9 Thou/uL Normal 06/29/2024 4 - 11 H[facility]CT MCH RBC Qn Auto 26.5 pg Below low normal 06/29/2024 27 - 3 1 H[facility]CT PMV Bld Auto 11.9 fL Normal 06/29/2024 7.5 - 12.5 H[facility]CT RDW RBC Auto-Rto 14.6 % Above high normal 06/29/2024 11.5 - 14.5 H[facility]CT RBC num Bld Auto 4.27 Mil/uL Normal 06/29/2024 4 - 5.4 HHCCT MCHC RBC Auto-mCnc 31.1 g/dL Normal 06/29/2024 30 - 36 HHCCT Hct VFr Bld Auto 36.3 % Normal 06/29/2024 35 - 47 HH CCT POC Glucose 124.0 mg/dL Above high normal 06/29/2024 65 - 99 HHCCT POC Glucose 155.0 mg/dL Above high normal 06/29/2024 65 - 99 HHCCT POC Glucose 161.0 mg/dL Above high normal 06/28/2024 65 - 99 HHCCT POC Glucose 122.0 mg/dL Above high normal 06/28/2024 65 - 99 HHCCT POC Glucose 138.0 mg/dL Above high normal 06/28/2024 65 - 99 H[facility]CT Transferrin SerPl-mCnc 247.0 mg/dL Normal 06/28/2024 200 - 360 HHCCT Prealb SerPl-mCnc 24.0 mg/dL Normal 06/28/2024 20 - 40 H[facility]CT Phosphate SerPl-mCnc 4.1 mg/dL Normal 06/28/2024 2.7 - 4. 5 [facility]CT Magnesium SerPl-mCnc 1.5 mg/dL Below low normal 06/28/2024 1 .6 - 2.7 HHCCT Potassium SerPl-sCnc 3.8 mmol/L Normal 06/28/2024 3.4 - 5 .3 HHCCT Chloride SerPl-sCnc 105.0 mmol/L Normal 06/28/2024 98 - 1 07 HHCCT GFR/BSA.pred SerPlBld [id number] 65.0 Normal 06/28/2024 59 - HHCCT CO2 SerPl-sCnc 25.0 mmol/L Normal 06/28/2024 22 - 33 HH CCT BUN SerPl-mCnc 14.0 mg/dL Normal 06/28/2024 8 - [address] Glucose SerPl-mCnc 131.0 mg/dL Above high normal 06/28/2024 65 - 99 HHCCT Calcium SerPl-mCnc 8.5 mg/dL Below low normal 06/28/2024 8.7 - 10.5 HHCCT Sodium SerPl-sCnc 140.0 mmol/L Normal 06/28/2024 136 - 14 5 HHCCT Creat SerPl-mCnc 0.9 mg/dL Normal 06/28/2024 0.4 - 1.1 HH CCT BUN/Creat SerPl 16.0 Ratio Normal 06/28/2024 10 - 25 HH CCT Anion Gap Bld-sCnc 10.0 Normal 06/28/2024 7 - 17 HHCCT Hgb Bld-mCnc 10.8 g/dL Below low normal 06/28/2024 11.7 - 15 .7 HHCCT Hct VFr Bld Auto 34.6 % Below low normal 06/28/2024 35 - 47 HHCCT Platelet num Bld Auto 201.0 Thou/uL Normal 06/28/2024 150 - 450 HHCCT MCH RBC Qn Auto 27.0 pg Normal 06/28/2024 27 - [address] WBC num Bld Auto 6.7 Thou/uL Normal 06/28/2024 4 - 11 HHCCT RDW RBC Auto-Rto 14.7 % Above high normal 06/28/2024 11.5 - 14.5 HHCCT RBC num Bld Auto 4.0 Mil/uL Normal 06/28/2024 4 - 5.4 H HCCT MCHC RBC Auto-mCnc 31.2 g/dL Normal 06/28/2024 30 - 36 HHCCT PMV Bld Auto 10.9 fL Normal 06/28/2024 7.5 - 12.5 HHCCT MCV RBC Auto 87.0 fL Normal 06/28/2024 80 - 100 HHCCT Ca-I SerPl-mCnc 1.14 mmol/L Below low normal 06/28/2024 1.17 - 1.33 [facility] Glucose 137.0 mg/dL Above high normal 06/28/2024 65 - 99 [facility] Glucose 127.0 mg/dL Above high normal 06/28/2024 65 - 99 [facility] Glucose 135.0 mg/dL Above high normal 06/27/2024 65 - 99 [facility] Glucose 165.0 mg/dL Above high normal 06/27/2024 65 - 99 [facility] Glucose 104.0 mg/dL Above high normal 06/27/2024 65 - 99 [facility] FLUBV RNA Nph Ql Non-probe PCR Not Detected Normal 06/27/2024 [facility] M pneumo DNA Nph Ql Non-probe PCR Not Detected Normal 06/27/2024 [facility] B pert tox prom reg Nph Ql Non-probe PCR Not Detected Normal 06/27/2024 [facility] FLUAV RNA Nph Ql Non-probe PCR Not Detected Normal 06/27/2024 [facility] Bordetella parapertussis Not Detected Normal 06/27/2024 [facility] HCoV OC43 RNA Nph Ql Non-probe PCR Not Detected Normal 06/27/2024 [facility] HCoV HKU1 RNA Nph Ql Non-probe PCR Not Detected Normal 06/27/2024 [facility] C pneum DNA Nph Ql Non-probe PCR Not Detected Normal 06/27/2024 [facility] HPIV4 RNA Nph Ql Non-probe PCR Not Detected Normal 06/27/2024 [facility] 2019-nCOV RNA Not Detected Normal 06/27/2024 [facility] HAdV DNA Nph Ql Non-probe PCR Not Detected Normal 06/27/2024 [facility] HCoV 229E RNA Nph Ql Non-probe PCR Not Detected Normal 06/27/2024 [facility] hMPV RNA Nph Ql Non-probe PCR Not Detected Normal 06/27/2024 [facility] RV+EV RNA Nph Ql Non-probe PCR Not Detected Normal 06/27/2024 [facility] HPIV1 RNA Nph Ql Non-probe PCR Not Detected Normal 06/27/2024 [facility] HPIV3 RNA Nph Ql Non-probe PCR Not Detected Normal 06/27/2024 [facility] HPIV2 RNA Nph Ql Non-probe PCR Not Detected Normal 06/27/2024 [facility] RSV RNA Nph Ql Non-probe PCR Not Detected Normal 06/27/2024 CCT HCoV NL63 RNA Nph Ql Non-probe PCR Not Detected Normal 06/27/2024 CCT pH Ur Strip 5.0 Normal 06/27/2024 5 - 8 [facility]CT Prot Ur Strip-mCnc Small (30 mg/dL) Abnormal 06/27/2024 - CCT Ketones Ur Strip-mCnc Trace Abnormal 06/27/2024 - CCT Clarity Ur Clear Normal 06/27/2024 H[facility] Sp Gr Ur Strip 1.04 Above high normal 06/27/2024 1.003 - 1.03 H[facility]CT Nitrite Ur Ql Strip Negative Normal 06/27/2024 - [facility] WBC num/area UrnS HPF 6.0 per hpf Above high normal 06/27/20 24 0 - 4 [facility]CT RBC num/area UrnS HPF 4.0 per hpf Normal 06/27/2024 0 - 4 [facility]CT Glucose Ur Strip-mCnc 0.0 mg/dL Normal 06/27/2024 0 - 99 [facility]CT Leukocyte esterase Ur Ql Strip Trace Abnormal 06/27/2024 - CCT Color Ur Yellow Normal 06/27/2024 H[facility]CT Bilirub Ur Strip-mCnc Negative Normal 06/27/2024 - CCT Hgb Ur Ql Strip Moderate Abnormal 06/27/2024 - C CT HDLc SerPl 2.4 Ratio Normal 06/27/2024 0 - 5 HHCCT Cholest SerPl-mCnc 141.0 mg/dL Normal 06/27/2024 - 200 HHCCT LDLc SerPl Calc-mCnc 49.0 mg/dL Normal 06/27/2024 - 130 HHCCT HDLc SerPl-mCnc 58.0 mg/dL Normal 06/27/2024 39 - HH CCT Trigl SerPl-mCnc 169.0 mg/dL Above high normal 06/27/2024 - 150 HHCCT Est. average glucose Bld gHb Est-mCnc 154.0 mg/dL Normal 06/27/2024 HHCCT Hgb A1c MFr Bld 7.0 % Above high normal 06/27/2024 - 5.7 HHCCT POC Glucose 92.0 mg/dL Normal 06/27/2024 65 - 99 H[facility]CT POC Glucose 95.0 mg/dL Normal 06/27/2024 65 - 99 H[facility]CT POC Glucose 88.0 mg/dL Normal 06/27/2024 65 - 99 H[facility]CT POC Glucose 84.0 mg/dL Normal 06/27/2024 65 - 99 H[facility]CT POC Glucose 72.0 mg/dL Normal 06/27/2024 65 - 99 H[facility]CT Fibrinogen PPP-mCnc 396.0 mg/dL Normal 06/27/2024 148 - 4 35 HHCCT INR PPP 0.9 Normal 06/27/2024 HHCCT Prothrombin time 10.7 seconds Normal 06/27/2024 10 - 13.5 HHCCT Anticoagulant NO ANTI COAGULANT MEDS Normal 06/27/2024 HHCCT TT imm Bovine Thrombin PPP 16.0 seconds Normal 06/27/2024 12.7 - 19.2 HHCCT Anticoagulant NO ANTI COAGULANT MEDS Normal 06/27/2024 HHCCT aPTT PPP 31.0 seconds Normal 06/27/2024 25 - 36 HHCCT Anticoagulant NO ANTI COAGULANT MEDS Normal 06/27/2024 HHCCT Bilirub SerPl-mCnc 0.6 mg/dL Normal 06/27/2024 0.2 - 1 HHCCT Creat SerPl-mCnc 0.8 mg/dL Normal 06/27/2024 0.4 - 1.1 HH CCT AST SerPl-cCnc 14.0 U/L Normal 06/27/2024 10 - 50 HHCC T BUN SerPl-mCnc 17.0 mg/dL Normal 06/27/2024 8 - [address] Chloride SerPl-sCnc 104.0 mmol/L Normal 06/27/2024 98 - 1 07 HHCCT BUN/Creat SerPl 21.0 Ratio Normal 06/27/2024 10 - 25 HH CCT Anion Gap Bld-sCnc 11.0 Normal 06/27/2024 7 - 17 HHCCT Potassium SerPl-sCnc 4.0 mmol/L Normal 06/27/2024 3.4 - 5 .3 HHCCT Albumin/Glob SerPl 1.6 Ratio Normal 06/27/2024 1 - 3 HHCCT ALP SerPl-cCnc 55.0 U/L Normal 06/27/2024 32 - 122 HHCC T Prot SerPl-mCnc 6.4 g/dL Normal 06/27/2024 6.3 - 8.[address] Calcium SerPl-mCnc 9.3 mg/dL Normal 06/27/2024 8.7 - 10.5 HHCCT Globulin Ser Calc-mCnc 2.5 g/dL Normal 06/27/2024 1.5 - 3.9 HHCCT GFR/BSA.pred SerPlBld [id number] 75.0 Normal 06/27/2024 59 - HHCCT ALT SerPl-cCnc 8.0 U/L Below low normal 06/27/2024 10 - 50 HHCCT CO2 SerPl-sCnc 25.0 mmol/L Normal 06/27/2024 22 - 33 HH CCT Glucose SerPl-mCnc 83.0 mg/dL Normal 06/27/2024 65 - 99 HHCCT Albumin SerPl-mCnc 3.9 g/dL Normal 06/27/2024 3.4 - 4.8 HHCCT Sodium SerPl-sCnc 140.0 mmol/L Normal 06/27/2024 136 - 14 5 HHCCT MCHC RBC Auto-mCnc 30.3 g/dL Normal 06/27/2024 30 - 36 HHCCT WBC num Bld Auto 8.4 Thou/uL Normal 06/27/2024 4 - 11 HHCCT Imm Granulocytes num Bld Auto 0.03 Thou/uL Normal 06/27/2024 0 - 0.1 HHCCT Eosinophil/leuk NFr Bld Auto 3.8 % Normal 06/27/2024 HHCCT Imm Granulocytes/leuk NFr Bld Auto 0.4 % Normal 06/27/2024 HHCCT Hgb Bld-mCnc 11.5 g/dL Below low normal 06/27/2024 11.7 - 15 .7 HHCCT Basophils/leuk NFr Bld Auto 0.7 % Normal 06/27/2024 HHCCT Eosinophil num Bld Auto 0.32 Thou/uL Normal 06/27/2024 0 - 0.7 HHCCT RDW RBC Auto-Rto 14.6 % Above high normal 06/27/2024 11.5 - 14.5 HHCCT Hct VFr Bld Auto 37.9 % Normal 06/27/2024 35 - 47 HH CCT Lymphocytes num Bld Auto 3.06 Thou/uL Normal 06/27/2024 1.5 - 4.5 HHCCT PMV Bld Auto 10.9 fL Normal 06/27/2024 7.5 - 12.5 HHCCT RBC num Bld Auto 4.39 Mil/uL Normal 06/27/2024 4 - 5.4 HHCCT Basophils num Bld Auto 0.06 Thou/uL Normal 06/27/2024 0 - 0.2 HHCCT Lymphocytes/leuk NFr Bld Auto 36.4 % Normal 06/27/2024 HHCCT MCH RBC Qn Auto 26.2 pg Below low normal 06/27/2024 27 - 3 1 HHCCT MCV RBC Auto 86.0 fL Normal 06/27/2024 80 - 100 H[facility]CT Platelet num Bld Auto 225.0 Thou/uL Normal 06/27/2024 150 - 450 [facility] Neutrophils/leuk NFr Bld Auto 53.0 % Normal 06/27/2024 [facility] Monocytes num Bld Auto 0.48 Thou/uL Normal 06/27/2024 0.2 - 1.5 [facility] Neutrophils num Bld Auto 4.46 Thou/uL Normal 06/27/2024 2 - 7.5 [facility] Monocytes/leuk NFr Bld Auto 5.7 % Normal 06/27/2024 [facility] Encounters Encounter Type Encounter Reason Primary Diagnosis Location Date Ambulatory [facility] 08/29/2024 Inpatient Cerebral infarction, unspecified Cerebral infarction, unspecified [facility] 06/26/2024 Care Team Organization Name Specialty Phone Email Start Date End [facility] 06/28/2024 02/08/2025 [facility] 06/27/2024 [facility] 06/26/2024
--- NOTE | 2025-05-24 13:03 | PC.NURSE ---
Mg lab added per pt family request
[2025-05-24 13:17] LABS: Magnesium 1.2 mg/dL (1.6-2.6)
--- NOTE | 2025-05-24 13:45 | PM.IMHP ---
History of Present Illness Date of Service: 05/24/25 Attending physician on admission: Bernard Chinchilla Chief Complaint: Fall at home Pt is a 79-year-old female with a PMH significant for paroxysmal AFib on Eliquis,?insulin-dependent diabetes type 2, HLD, HTN, and hypothyroidism who presents to the ED after mechanical fall at home this morning. Pt reports she was walking with her cane through the living room toward the kitchen when she ?missstepped? and fell to her knees in front of the couch. Pt was too weak to stand up so EMS was called. Some soreness in knees with L>R. Reports has been feeling overall weaker and more tired than usual lately. No N/V. Chronic diarrhea for the past year though improved recently. Has been eating and drinking well. Denies chest pain/pressure, palpitations. No SOB or difficulty breathing. Pt has been on long-term PPI since November of last year after having a stroke. Apparently was started after pt was having some difficulty handling the hospital food. Pt denies hx of acid reflux or gastric ulcer/UGIB. Of note, pt was recently home from rehab with home PT services stopped two weeks ago. Has a home assessment scheduled for May 30. In the ED pt with initial soft BP of 93/54, vitals otherwise stable and WNL. Orthostatics negative. Labs were significant for magnesium 1.2, AST 37, alk-phos 193. No leukocytosis. Stable H&H. No significant electrolyte abnormalities. Renal function around baseline. UA pending. CTA of head negative for acute fracture or abnormality. X-ray of knees bilaterally negative for acute fracture, but showing chronic osteoarthritis, PVD, and possible CPPD. EKG demonstrated sinus bradycardia of 58 without evidence of significant ST elevations or depressions. Pt was treated in the ED with IVF and Mag 2 g IV. Pt is admitted to the hospital for treatment and further evaluation generalized weakness and fall at home in the setting of hypomagnesemia. Review of Systems Review of Systems: Negative except for that which is stated in the HPI. [facility] Medical History Paroxysmal atrial fibrillation Orthostatic hypotension Anemia Buttock wound Obesity (BMI 30-39.9) Neuropathy Acquired hypothyroidism Mixed hyperlipidemia Essential hypertension Atrial fibrillation Hypothyroidism Obesity Type 2 diabetes mellitus with morbid obesity Annual physical exam Vitamin D deficiency HLD (hyperlipidemia) T2DM (type 2 diabetes mellitus) Diabetes mellitus Hypertension Family History Father Diabetes Mother CHF (congestive heart failure) CVD (cardiovascular disease) Brother HIV (human immunodeficiency virus infection) Surgical History H/O hysterectomy for benign disease History of vitrectomy History of surgery History of colonoscopy (~01/28/19) History of appendectomy History of cholecystectomy S/P JOSIE (total abdominal hysterectomy) Social History Household Members: Family Housing: Homeless Do you presently have visiting nurse or other home services: No Alcohol intake: current Patient Tobacco Use Status: Former Tobacco user Tobacco use type: Cigarette Years Smoked: 30, started at 10, about 15 cig a day, e-Cigarette/Vaping Use: Currently Using Second Hand Smoke Exposure: Yes Advance Directives: Yes Advance Directives on File: Yes Advance Directives Date on File: 12/15/23 Do you have a plan to hurt others: No Plan service: No Current occupational status: retired Current occupational exposures/hazards: No Cognitive needs: No Hearing needs: No Vision needs: No Meds Allergies Allergy/AdvReac Type Severity Reaction Status Date / Time amoxicillin (Augmentin) Allergy Unknown hives Verified 05/24/25 11:11 clavulanic acid (Augmentin) Allergy Unknown hives Verified 05/24/25 11:11 furosemide Allergy Unknown unknown Verified 05/24/25 11:11 latex (LATEX) Allergy Unknown UNKNOWN Verified 05/24/25 11:11 lisinopril Allergy Unknown Unknown Verified 05/24/25 11:11 oxycodone (Percocet) Allergy Unknown Stomach Verified 05/24/25 11:11 upset tramadol Allergy Unknown Stomach Verified 05/24/25 11:11 uspet Active Medications: Current Medications Magnesium Sulfate (Magnesium Sulfate/H2o) 2 gm in 50 mls @ 25 mls/hr IV ONCE ONE Stop: 05/24/25 15:20 Home Medications ?Medication ?Instructions ?Recorded ?Confirmed ?Last Taken ?Type cholecalciferol (vitamin D3) 25 25 mcg PO DAILY 12/16/24 05/04/25 04/02/25 History mcg (1,000 unit) tablet (Vitamin D3) cyanocobalamin (vitamin B-12) 250 500 mcg PO DAILY 12/16/24 05/04/25 04/02/25 History mcg tablet diclofenac sodium 1 % topical gel 2 g topical QID PRN Pain 04/03/25 05/04/25 Unknown History gabapentin 300 mg capsule 300 mg PO BEDTIME 04/03/25 05/04/25 04/01/25 History levothyroxine 112 mcg tablet 112 mcg PO DAILY@0600 04/03/25 05/04/25 04/02/25 History loperamide 2 mg capsule 2 mg PO Q4H PRN Constipation 04/03/25 05/04/25 Unknown History omeprazole 20 mg capsule,delayed 20 mg PO DAILY@0630 04/03/25 05/04/25 04/02/25 History release sertraline 50 mg tablet 50 mg PO DAILY 04/03/25 05/04/25 04/02/25 History Physical Exam Vital Signs and Narrative: Vital Signs: Last Vital Signs Temp 97.6 F 05/24/25 11:08 Pulse 59 05/24/25 12:49 Resp 16 05/24/25 12:49 BP 146/67 H 05/24/25 12:49 Pulse Ox 100 05/24/25 12:49 O2 Del Method Room Air 05/24/25 12:49 BMI result Body Mass Index 29.3 General: AOx3, frail, appears chronically ill. No acute distress Resp: CTA bilaterally CVS: S1, S2, RRR GI: +BS, no distention, no significant tenderness Skin: Warm, dry Neuro: Cranial nerves II-XII grossly intact bilaterally. Motor grossly intact bilaterally. Musckuloskeletal: Global weakness noted. 2/5 strength of lower extremities bilaterally. Knees bilaterally without obvious trauma or ecchymosis, non-tender. Extremities: No edema. Psych: Appropriate affect Results Labs 05/24/25 11:26 05/24/25 11:26 Labs: Laboratory Results - last 24 hr 05/24/25 11:26 MCV 81.8 MCH 25.2 L MCHC 30.8 L RDW 16.9 H Plt Count 258 MPV 11.3 Immature Gran % (Auto) 0.5 H Neut % (Auto) 71.2 Lymph % (Auto) 20.1 [place] % (Auto) 6.6 Eos % (Auto) 1.0 Baso % (Auto) 0.6 Lymph # (Auto) 1.7 [place] # (Auto) 0.6 Eos # (Auto) 0.1 Baso # (Auto) 0.1 Abs Immat Gran (auto) 0.04 H Absolute Neuts (auto) 6.0 Absolute Nucleated RBC 0.000 Nucleated RBC % (auto) 0.0 Anion Gap 12 Estim Creat Clear Calc 46.2 Estimated GFR > 60 Random Glucose 117 H Calcium 10.7 H D Magnesium 1.2 L* Total Bilirubin 0.3 AST 37 H ALT 25 Alkaline Phosphatase 193 H Total Creatine Kinase 46 Total Protein 6.3 L Albumin 3.9 Imaging Radiologist's Impressions: Impressions Knee X-Ray 05/24/25 11:40 IMPRESSION: Tricompartment osteoarthrosis without acute fracture or dislocation. Concerning CPPD. Enthesopathy, quadriceps tendon. Peripheral vascular disease. Electronically signed by: Chavo Payan MD 05/24/2025 12:04 PM EDT RP Knee X-Ray 05/24/25 11:40 IMPRESSION: Tricompartmental osteoarthrosis without acute fracture or dislocation. Consider CPPD. Peripheral atherosclerosis disease. Probable calcified varices. Electronically signed by: Chavo Payan MD 05/24/2025 12:06 PM EDT RP Head CT 05/24/25 11:51 IMPRESSION: No acute fracture, bony calvarium. No acute intracranial hemorrhage. Small vessel occlusive disease. Prior vascular insult right MCA territory. Atherosclerosis disease. Electronically signed by: Chavo Payan MD 05/24/2025 12:25 PM EDT RP Assessment and Plan (1) Hypomagnesemia: Status: Acute Plan Pt is a 79-year-old female with a PMH significant for paroxysmal AFib on Eliquis,?insulin-dependent diabetes type 2, HLD, HTN, and hypothyroidism who presents to the ED after mechanical fall at home this morning. Pt is admitted to the hospital for treatment and further evaluation generalized weakness and fall at home in the setting of hypomagnesemia. Hypomagnesemia Magnesium 1.2 at time of presentation Pt given Mag sulfate 2 g IV in the ED Continue oral Mag supplementation Hold PPI; pt without hx of GERD, UGIB, or gastric ulcer; on PPI since November last year Follow Mag Monitor on telemetry Generalized weakness, mechanical fall at home Imaging negative for traumatic injury Recently graduated from home PT services 2 weeks ago Has a home assessment scheduled for May 30 We will get PT consult for possible STR Paroxysmal AFib Continue Eliquis Chronic diarrhea Ongoing for the past year, has improved recently Follow up outpatient with GI Insulin-dependent type 2 diabetes Hold metformin Sliding-scale insulin, diabetic diet HLD Continue statin and ezetimibe Hypothyroidism Continue levothyroxine Carpal tunnel Reports chronic numbness in hands Has had recent testing and now waiting on hand surgeon to schedule surgery Follow up outpatient DNR/DNI, verified with pt and [facility] Attending:?Dr. Chinchilla DVT Prophylaxis: On Eliquis Pt will require a hospitalization of at least two nights for treatment of?generalized weakness and mechanical fall at home in the setting of hypomagnesemia. Pt will require hospital level care for close monitoring of labs and cardiac function, as well as PT evaluation for safe disposition home. Quality Stroke Does the patient have a stroke diagnosis?: No VTE Prior VTE?: No VTE Risk Level:: Medical - moderate - high VTE Device Contraindication: Treatment Not Indicated VTE Drug Contraindication: N/A - Med Ordered
[2025-05-24] MEDS: Magnesium Sulfate/H2O 2 GM/50 ML PIGGYBACK IV (14:47)
--- NOTE | 2025-05-24 16:21 | PC.NURSE ---
critical MG of 1.2 received 2gm Mg ordered- admin delayd d/t difficulty obtaining IV access- plan is for admission to [facility] for management of hypercalcemia,and hypomag.
--- NOTE | 2025-05-24 17:03 | PC.NURSE ---
79 year old female, a&o x3, hard of hearing, calm and cooperative with care, oob to BR w/ assist. PMHX: Afib (on eliquis), DM II (on metformin/victoza) Presents from home with family at bedside s/p mechanical trip and fall at home. Per pt she was unable to get off of the floor d/t weakness. Pt reports improving Diarrhea however pt sts she continues to feel weak overall. Pt had labs and imaging in dept. Orthos (-) critical Mg of 1.2. Pt rec 2gm Mg via 20g IV in R-AC. Imaging negative, plan is for admission and tx of weaknes r/t hypomagnesemia.
--- NOTE | 2025-05-24 17:37 | PHA.MEDREC ---
Pharmacy Consult ? Medication Reconciliation Pharmacy has completed the medication reconciliation. Spoke to grand daughter/ HCP Milli [phone] via phone and she was able to confirm patient's medication list.
[2025-05-24 21:06] LABS: Glucose, Whole Blood 131 mg/dL (60-115)
[2025-05-25] VITALS (7 sets, daily range): BP systolic 130–169; BP diastolic 61–76; PULSE 52–61; RESP 16–19; TEMP 36.1–37.1; O2SAT 95–100; BMI 28.2
[2025-05-25 07:38] LABS: Anion Gap 12 (12-20); Blood Urea Nitrogen 15 mg/dL (9-16); Calcium 10.8 mg/dL (8.4-10.2); Carbon Dioxide 31 mmol/L (22-29); Chloride 103 mmol/L (96-108); Creatinine Clr Calc Pharmacy 53.5; Estimated Glomerular Filt Rate > 60; Magnesium 1.4 mg/dL (1.6-2.6); Potassium 3.6 mmol/L (3.3-5.1); Sodium 142 mmol/L (135-145)
[2025-05-25 07:44] LABS: Glucose, Whole Blood 97 mg/dL (60-115)
[2025-05-25] MEDS: Magnesium Sulfate/H2O 2 GM/50 ML PIGGYBACK IV (07:53)
[2025-05-25] MEDS: 0.9 % Sodium Chloride Flush 3 ML SYRINGE IVFLUSH ×2 (07:53→15:54)
--- NOTE | 2025-05-25 08:49 | MHC.CM.PN ---
CM met with Patient at bedside and addressed IMM with her, providing Patient with the original and a copy has been placed on the chart. Patient has been rotating living with her Daughter in [place], Daughter in [place], and Son in [place]. CM also spoke with Granddaughter/HCP/Milli @ [phone] (with Patient's permission) and going forward, Patient will no longer be staying with her Son, just her 2 Daughters and by mid June it will just be with her Daughter in [place] 100 percent of the time. Patient had [facility] VNA just recently and she has an appointment with [facility] on 05/30 2025 for an eval for services. Patient will benefit from a PT Eval to assist with disposition; CM has initiated and will follow for dc planning. PCP is Dr. Rios and Granddaughter will transport to home at time of dc.
--- NOTE | 2025-05-25 08:53 | P.PNIM_ITS ---
Subjective Subjective Date of Service: 05/25/25 Interval History: weakness Physical Exam 2 Vital Signs: Vital Signs: Last Vital Signs Temp 97.5 F 05/25/25 08:00 Pulse 58 05/25/25 08:00 Resp 17 05/25/25 08:00 BP 154/70 H 05/25/25 08:00 Pulse Ox 100 05/25/25 08:00 O2 Del Method Nasal Cannula 05/25/25 08:00 O2 Flow Rate 1 05/25/25 08:00 BMI result Body Mass Index 28.2 General: AO X 3, no acute distress Resp: CTA bilateral, no accessory muscles used CVS: S1,S2,RRR GI: soft, non tender, non distended Neuro: motor grossly intact, alert Psych: appropriate affect, appropriate insight Objective Data Active Medications Acetaminophen (Acetaminophen 325 Mg Tablet) 650 mg PO Q6H PRN PRN Reason: Pain, Mild 1-3,fever,headache Apixaban (Apixaban 5 Mg Tablet) 5 mg PO BID [facility] Last Admin: 05/25/25 07:54 Dose: 5 mg Documented By: SHIRA Atorvastatin Calcium (Atorvastatin Calcium 80 Mg Tablet) 80 mg PO BEDTIME [facility] Last Admin: 05/24/25 22:34 Dose: 80 mg Documented By: CANDELARIO Calcium Carbonate (Calcium Carbonate 750 Mg Tab.Chew) 750 mg PO Q4H PRN PRN Reason: Heartburn Cyanocobalamin (Cyanocobalamin (Vitamin B-12) 500 Mcg Tablet) 500 mcg PO DAILY [facility] Last Admin: 05/25/25 07:54 Dose: 500 mcg Documented By: SHIRA Dextrose (Dextrose 50 % 25 Gm/50 Ml Syringe) 25 gm IVPUSH Q15M PRN; Protocol PRN Reason: per Hypoglycemia Standing Ord. Ezetimibe (Ezetimibe 10 Mg Tablet) 10 mg PO BEDTIME [facility] Last Admin: 05/24/25 22:34 Dose: 10 mg Documented By: CANDELARIO Gabapentin (Gabapentin 300 Mg Capsule) 300 mg PO BEDTIME [facility] Last Admin: 05/24/25 22:34 Dose: 300 mg Documented By: CANDELARIO Glucose (Glucose Gel 15 Gm Gel..Gram.) 15 gm PO Q15M PRN; Protocol PRN Reason: per Hypoglycemia Standing Ord. Magnesium Sulfate (Magnesium Sulfate/H2o) 2 gm in 50 mls @ 25 mls/hr IV ONCE ONE Stop: 05/25/25 09:36 Last Admin: 05/25/25 07:53 Dose: 25 mls/hr Documented By: SHIRA Insulin Human Lispro (Insulin Lispro 100 Unit/Ml 3 Ml Vial) 0 unit SUBCUT QIDACHS [facility]; Protocol Last Admin: 05/25/25 07:55 Dose: Not Given Documented By: SHIRA Non-Admin Reason: No Insulin Coverage Levothyroxine Sodium (Levothyroxine Sodium 112 Mcg Tablet) 112 mcg PO DAILY@0600 [facility] Last Admin: 05/25/25 06:05 Dose: 112 mcg Documented By: JASS Magnesium Hydroxide (Milk Of Magnesia 30 Ml Oral.Susp) 30 ml PO DAILY PRN PRN Reason: Constipation Magnesium Oxide (Magnesium Oxide 400 Mg Tablet) 800 mg PO BID [facility] Melatonin (Melatonin 3 Mg Tablet) 6 mg PO BEDTIME PRN PRN Reason: Insomnia Ondansetron HCl (Ondansetron Hcl 4 Mg/2 Ml Vial) 4 mg IVPUSH Q8H PRN PRN Reason: Nausea and Vomiting Psyllium Hydrophilic Mucilloid (Psyllium Seed 3.7 Gm Packet) 3.7 gm PO DAILY [facility] Sertraline HCl (Sertraline Hcl 50 Mg Tablet) 50 mg PO BEDTIME [facility] Last Admin: 05/24/25 22:34 Dose: 50 mg Documented By: CANDELARIO Sodium Chloride (0.9 % Sodium Chloride Flush 3 Ml Syringe) 3 ml IVFLUSH QSHIFT [facility] Last Admin: 05/25/25 07:53 Dose: 3 ml Documented By: SHIRA Vitamin D (Cholecalciferol (Vitamin D3) 25 Mcg Tablet) 25 mcg PO DAILY [facility] Last Admin: 05/25/25 07:53 Dose: 25 mcg Documented By: SHIRA Labs 05/24/25 11:26 05/25/25 06:41 Labs: Laboratory Results - last 24 hr 05/24/25 05/24/25 05/25/25 11:26 21:01 06:41 MCV 81.8 MCH 25.2 L MCHC 30.8 L RDW 16.9 H Plt Count 258 MPV 11.3 Immature Gran % (Auto) 0.5 H Neut % (Auto) 71.2 Lymph % (Auto) 20.1 [place] % (Auto) 6.6 Eos % (Auto) 1.0 Baso % (Auto) 0.6 Lymph # (Auto) 1.7 [place] # (Auto) 0.6 Eos # (Auto) 0.1 Baso # (Auto) 0.1 Abs Immat Gran (auto) 0.04 H Absolute Neuts (auto) 6.0 Absolute Nucleated RBC 0.000 Nucleated RBC % (auto) 0.0 Hold Purple Top SEE NOTE Anion Gap 12 12 Estim Creat Clear Calc 46.2 53.5 Estimated GFR > 60 > 60 POC Glucose 131 H Random Glucose 117 H 94 Calcium 10.7 H D 10.8 H Magnesium 1.2 L* 1.4 L* Total Bilirubin 0.3 AST 37 H ALT 25 Alkaline Phosphatase 193 H Total Creatine Kinase 46 Total Protein 6.3 L Albumin 3.9 05/25/25 07:31 MCV MCH MCHC RDW Plt Count MPV Immature Gran % (Auto) Neut % (Auto) Lymph % (Auto) [place] % (Auto) Eos % (Auto) Baso % (Auto) Lymph # (Auto) [place] # (Auto) Eos # (Auto) Baso # (Auto) Abs Immat Gran (auto) Absolute Neuts (auto) Absolute Nucleated RBC Nucleated RBC % (auto) Hold Purple Top Anion Gap Estim Creat Clear Calc Estimated GFR POC Glucose 97 Random Glucose Calcium Magnesium Total Bilirubin AST ALT Alkaline Phosphatase Total Creatine Kinase Total Protein Albumin Assessment and Plan (1) Hypomagnesemia: Status: Acute Plan 79F PMH pafib on eliquis, dm, hld, htn, hypothryoid, presented with fall, found to have hypomagnesemia Acute recurrent hypomagnesemia Replace and monitor, oral supplement increased to 800 b.i.d., discontinue PPI, manage chronic diarrhea which has been improving Generalized weakness and mechanical fall Physical therapy Paroxysmal AFib Continue apixaban Hypothyroid Levothyroxine Hyperlipidemia Statin, ezetimibe DVT prophylaxis on Eliquis DNR DNI reason for continued hospitalization: Hypomagnesemia Quality Stroke Does the patient have a stroke diagnosis?: No VTE Prior VTE?: No VTE Risk Level:: Medical - moderate - high VTE Device Contraindication: Treatment Not Indicated VTE Drug Contraindication: N/A - Med Ordered
[2025-05-25 12:09] LABS: Glucose, Whole Blood 257 mg/dL (60-115)
--- NOTE | 2025-05-25 12:24 | MHC.CLN ---
CONSULT PT WITH INCREASED NUTRITION RISK R/T PRESSURE INJURY DIET RX: 2000DM RECOMMEND ADDING ENSURE MAX BID TO PROMOTE WOUND HEALING SUPP PROVIDES 300KCALS, 60G PROTEIN MONITOR PO INTAKE AND ENCOURAGE SUPPLEMENTS SEE FULL CLINICAL NUTRITION ASSESSMENT
--- NOTE | 2025-05-25 12:38 | MHC.CM.PN ---
PT is recommending home with services vs STR. CM spoke with Granddaughter/HCP/Milli at listed #; Patient and family want home with vna. CM has referred to area VNAs that are contracted with Patient's insurance. CM will continue to follow.
[2025-05-25 16:12] LABS: Glucose, Whole Blood 106 mg/dL (60-115)
--- NOTE | 2025-05-25 17:58 | PC.NURSE ---
Pt lost IV site to right AC, 2 RN's attempted IV insertion , pt is resistant to get a new IV now . Dr Chinchilla was notified and it is okay to hold off on IV access
[2025-05-25 21:08] LABS: Glucose, Whole Blood 138 mg/dL (60-115)
[2025-05-26 03:47] VITALS: BP 128/70; PULSE 52; RESP 20; TEMP 36.1; O2SAT 100
[2025-05-26 07:17] LABS: Hematocrit 32.3 % (37.0-47.0); Hemoglobin 10.2 g/dl (12.0-16.0); Mean Corpuscular HGB Conc 31.6 g/dl (31.0-35.0); Mean Corpuscular Hemoglobin 25.2 pg (27.0-33.0); Mean Corpuscular Volume 80.0 fL (80.0-98.0); NRBC Abs Auto 0.000 X10*3/uL (0.0-0.012); NRBC Pct Auto 0.0 /100WBC (0.0-0.2); Platelet Count 248 X10*3/uL (160-400); Red Blood Count 4.04 X10*6/uL (4.20-5.50); White Blood Count 6.1 X10*3/uL (4.8-10.8)
[2025-05-26 07:34] LABS: Anion Gap 12 (12-20); Blood Urea Nitrogen 21 mg/dL (9-16); Calcium 10.1 mg/dL (8.4-10.2); Carbon Dioxide 32 mmol/L (22-29); Chloride 103 mmol/L (96-108); Creatinine Clr Calc Pharmacy 45.8; Estimated Glomerular Filt Rate > 60; Magnesium 1.5 mg/dL (1.6-2.6); Potassium 4.0 mmol/L (3.3-5.1); Sodium 143 mmol/L (135-145)
[2025-05-26 07:51] LABS: Glucose, Whole Blood 113 mg/dL (60-115)
[2025-05-26 07:55] VITALS: BP 119/68; PULSE 60; RESP 20; TEMP 36.6; O2SAT 100
--- NOTE | 2025-05-26 09:50 | P.DS_ITS ---
DS: Providers Provider Date of Service: 05/26/25 Date of admission: 05/24/25 13:49 Date of discharge: 05/26/25 Primary care physician: Trevor Rios MD Consults: 05/25/25 03:40 Consult to Wound Care Routine Reason for consultation: coccyx w/ blanchable redness and stage 2. Has provider been notified: Yes DS: Diagnosis Discharge Diagnosis (1) Hypomagnesemia: Status: Acute DS: Summary Hospital Course Hospital Course: from initial hpi: 79-year-old female with a PMH significant for paroxysmal AFib on Eliquis,?insulin-dependent diabetes type 2, HLD, HTN, and hypothyroidism who presents to the ED after mechanical fall at home this morning. Pt reports she was walking with her cane through the living room toward the kitchen when she ?missstepped? and fell to her knees in front of the couch. Pt was too weak to stand up so EMS was called. Some soreness in knees with L>R. Reports has been feeling overall weaker and more tired than usual lately. No N/V. Chronic diarrhea for the past year though improved recently. Has been eating and drinking well. Denies chest pain/pressure, palpitations. No SOB or difficulty breathing. Pt has been on long-term PPI since November of last year after having a stroke. Apparently was started after pt was having some difficulty handling the hospital food. Pt denies hx of acid reflux or gastric ulcer/UGIB. Of note, pt was recently home from rehab with home PT services stopped two weeks ago. Has a home assessment scheduled for May 30. In the ED pt with initial soft BP of 93/54, vitals otherwise stable and WNL. Or thostatics negative. Labs were significant for magnesium 1.2, AST 37, alk-phos 193. No leukocytosis. Stable H&H. No significant electrolyte abnormalities. Renal function around baseline. UA pending. CTA of head negative for acute fracture or abnormality. X-ray of knees bilaterally negative for acute fracture, but showing chronic osteoarthritis, PVD, and possible CPPD. EKG demonstrated sinus bradycardia of 58 without evidence of significant ST elevations or depressions. Pt was treated in the ED with IVF and Mag 2 g IV. Pt is admitted to the hospital for treatment and further evaluation generalized weakness and fall at home in the setting of hypomagnesemia. hospital course: Patient was admitted for acute recurrent hypomagnesemia complicated by generalized weakness and mechanical fall. Her magnesium was replaced and her baseline supplement was increased to 800 mg b.i.d.. Her PPI was discontinued. She will continue management of her chronic diarrhea which she reports has impr driss recently. Magnesium has improved to 1.5. She was seen by physical therapy who recommended short-term rehab, however patient is not interested and will be discharged home with VNA. For paroxysmal AFib was continued on apixaban. For hypothyroid continue levothyroxine. For hyperlipidemia continued on statin and ezetimibe. Time Attestation Discharge Coordination Time (in mins): 36 Quality: Safe Use of Opioids Does Pt have an Active Cancer Diagnosis on the Problem List?: No Quality: Stroke Does the patient have a stroke diagnosis?: No Physical Exam Vital Signs: Vital Signs: Last Vital Signs Temp 97.9 F 05/26/25 07:55 Pulse 60 05/26/25 07:55 Resp 20 05/26/25 07:55 BP 119/68 05/26/25 07:55 Pulse Ox 100 05/26/25 07:55 O2 Del Method Nasal Cannula 05/26/25 07:55 O2 Flow Rate 2 05/26/25 07:55 BMI result Body Mass Index 28.2 General: AO X 3, no acute distress Resp: CTA bilateral, no accessory muscles used CVS: S1,S2,RRR GI: soft, non tender, non distended Neuro: motor grossly intact, alert Psych: appropriate affect, appropriate insight DS: Data Data Completed and Pending Completed studies during hospitalization [Text1]: Procedures Excision of Duodenum, Via Natural or Artificial Opening Endoscopic, Diagnostic (04/02/25) Excision of Stomach, Via Natural or Artificial Opening Endoscopic, Diagnostic (04/02/25) Inspection of Lower Intestinal Tract, Via Natural or Artificial Opening Endoscopic (04/02/25) Labs on day of discharge: Laboratory Results - last 24 hr 05/25/25 05/25/25 05/25/25 11:14 16:09 20:57 WBC RBC Hgb Hct MCV MCH MCHC RDW Plt Count MPV Absolute Nucleated RBC Nucleated RBC % (auto) Sodium Potassium Chloride Carbon Dioxide Anion Gap BUN Creatinine Estim Creat Clear Calc Estimated GFR POC Glucose 257 H 106 138 H Random Glucose Calcium Magnesium 05/26/25 05/26/25 06:47 07:41 WBC 6.1 RBC 4.04 L Hgb 10.2 L Hct 32.3 L MCV 80.0 MCH 25.2 L MCHC 31.6 RDW 16.9 H Plt Count 248 MPV 11.1 Absolute Nucleated RBC 0.000 Nucleated RBC % (auto) 0.0 Sodium 143 Potassium 4.0 Chloride 103 Carbon Dioxide 32 H Anion Gap 12 BUN 21 H Creatinine 0.84 Estim Creat Clear Calc 45.8 Estimated GFR > 60 POC Glucose 113 Random Glucose 112 Calcium 10.1 D Magnesium 1.5 L Discharge Plan Discharge Anticipated Discharge Date/Time: 05/26/25 09:34 Patient Disposition: Home Health Service Discharge Diagnosis: hypomagnsemia Referrals: Trevor Rios MD [Primary Care Provider, Internal Medicine] Discharge Medications: New magnesium oxide 400 mg (241.3 mg magnesium) Tablet 800 mg PO BID 90 Days Qty: 360 0RF Continued (DME) pen needle, diabetic [Novofine 32] 32 gauge x 1/4 needle See Rx Instructions .Route Qty: 100 0RF Rx Instructions: As directed up to three times per day (DME) Stair lift See Rx Instructions .Route .MEDSUPPLY Qty: 1 0RF Rx Instructions: As directed (DME) blood sugar diagnostic Strip See Rx Instructions .ROUTE .MEDSUPPLY Qty: 100 11RF Rx Instructions: FREESTYLE LITE TEST STRIPS TO CHECK THREE TIMES A DAY metformin 1,000 mg tablet 1,000 mg PO BIDWM Qty: 180 3RF ezetimibe 10 mg tablet 10 mg PO BEDTIME Qty: 30 1RF Eliquis 5 mg tablet 5 mg PO BID Qty: 60 4RF liraglutide 0.6 mg/0.1 mL (18 mg/3 mL) pen injector 1.2 mg subcut DAILY 30 Days Qty: 6 10RF cyanocobalamin (vitamin B-12) 250 mcg Tablet 500 mcg PO DAILY cholecalciferol (vitamin D3) [Vitamin D3] 25 mcg (1,000 unit) Tablet 25 mcg PO DAILY sertraline 50 mg tablet 50 mg PO BEDTIME gabapentin 300 mg capsule 300 mg PO BEDTIME levothyroxine 112 mcg tablet 112 mcg PO DAILY@0600 diclofenac sodium 1 % gel 2 g topical QID PRN (Reason: Pain) loperamide 2 mg Capsule 2 mg PO Q4H PRN (Reason: Diarrhea) Rx Instructions: administer after each loose stool until symptoms controlled; do not exceed 8 mg per 24 hrs Hydrocil Instant Packet 1 packet PO DAILY Qty: 30 0RF atorvastatin 80 mg tablet 80 mg PO BEDTIME (DME) blood-glucose meter [FreeStyle Lite Meter] Kit See Rx Instructions .ROUTE .MEDSUPPLY Qty: 1 0RF Rx Instructions: As directed Discontinued magnesium oxide 400 mg magnesium tablet 400 mg PO BID Qty: 20 0RF omeprazole 20 mg capsule,delayed release(DR/EC) 20 mg PO DAILY@0630 Discharge Orders: Discharge Order (Routine); Ordered 05/26/25 Ordered By: Bernard Chinchilla Diet: Advance to usual diet Activity on Discharge: As tolerated Stand Alone Forms: Patient Portal Discharge page Print Language: [place] Care Plan Goals: manage low mag Health Concerns: low mag Plan of Treatment: increase mag supplement, stop ppi avoid diarrhea Assessment: see above
--- NOTE | 2025-05-26 09:52 | P.F2F_ITS ---
Service Date Service Date: 05/26/25 Encounter Date of encounter: 05/26/25 Reasons for Services Signs and symptoms assessed: unsteady Reason for physical therapy: home safety and mobility and therapeutic exercises Homebound: Leaving the home is medically contraindicated at this time without the asist of a device and/or another person due th the listed conditions above and below. Reason homebound: unsteady gait / fall risk Certification: Based on the above findings, I certify that this patient is confined to the home and needs intermittent care home care, physical therapy and/or speech therapy, or continues to need occupational therapy. The patient is under my care, and I have initiated the establishment of the plan of care. The patient will be followed by a physician who will periodically review the plan of care. Time Spent With Patient Time: Total time managing care of this patient today ____ minutes.
--- NOTE | 2025-05-26 11:40 | MHC.CM.PN ---
Pt has been medically cleared to DC, he dtr will pick her up, she will have care from family and [facility].
[2025-05-26 11:51] LABS: Glucose, Whole Blood 129 mg/dL (60-115)
[2025-05-26 11:59] VITALS: BP 123/62; PULSE 58; RESP 20; TEMP 36.8; O2SAT 99
== END 2025-05-26 15:31 | disposition home health service (06) | DRG 641 ==
LOC: HO.ED 13:21 → HO.EDOVER 13:49 → HO.IMC 17:11
PROVIDERS: Physician Assistant; Physician Assistant Medical; Admitting Provider Student in an Organized Health Care Education/Training Program; Emergency Provider Emergency Medicine Emergency Medical Services; PCP Internal Medicine; Visit Provider Internal Medicine
DX: E83.42 Hypomagnesemia (principal); I48.0 Paroxysmal atrial fibrillation; Z66 Do not resuscitate; E83.52 Hypercalcemia; K52.9 Noninfective gastroenteritis and colitis, unspecified; E78.5 Hyperlipidemia, unspecified; E03.9 Hypothyroidism, unspecified; Z87.891 Personal history of nicotine dependence; Z79.01 Long term (current) use of anticoagulants; Z79.84 Long term (current) use of oral hypoglycemic drugs; Z79.890 Hormone replacement therapy; Z79.899 Other long term (current) drug therapy
CPT/HCPCS: 36415; 70450; 73562; 80048; 80053; 82550; 82947; 83735; 85025; 85027; 93005; 97161; 97162; 99285; J3475

== ENCOUNTER → 2025-05-24 11:11 | Outpatient (BNV) | payer MEDICARE, SELFPAY | PROVIDERS: Admitting Provider Student in an Organized Health Care Education/Training Program; Emergency Provider Emergency Medicine Emergency Medical Services; PCP Internal Medicine; Visit Provider Internal Medicine Cardiovascular Disease | DX: R00.1 Bradycardia, unspecified (principal) | CPT/HCPCS: 93010 ==

== ENCOUNTER → 2025-05-24 11:11 | Outpatient (BNV) | payer MEDICARE, SELFPAY | PROVIDERS: Emergency Provider Emergency Medicine Emergency Medical Services; PCP Internal Medicine; Visit Provider Radiology Diagnostic Radiology | DX: I70.90 Unspecified atherosclerosis (principal); M17.0 Bilateral primary osteoarthritis of knee; I73.9 Peripheral vascular disease, unspecified; I70.202 Unspecified atherosclerosis of native arteries of extremities, left leg | CPT/HCPCS: 70450; 73562 ==

== ENCOUNTER → 2025-05-24 13:49 | Outpatient (BNV) | payer MEDICARE, SELFPAY | PROVIDERS: Admitting Provider Student in an Organized Health Care Education/Training Program; Emergency Provider Emergency Medicine Emergency Medical Services; PCP Internal Medicine; Visit Provider Student in an Organized Health Care Education/Training Program | DX: E83.42 Hypomagnesemia (principal) | CPT/HCPCS: 99223; 99232; 99239; G0180 ==

== ENCOUNTER 2025-06-02 13:58 | Outpatient (AMB) | payer MEDICARE, SELFPAY ==
--- NOTE | 2025-06-02 14:02 | MHC.PC.OV ---
Vital Signs 06/02/25 14:04 Height 5 ft Weight 147 lb 2 oz BMI 28.7 BP 146/56 H Blood Pressure Location Lt brachial Position Sitting Pulse 58 Pulse Source Pulse Oximeter Temp 97.1 F Temp Source Temporal Artery Scan Pulse Oximetry (%) 97 Oxygen Delivery Method Room Air Intake Visit Reasons: [facility]LY [facility] 05/26 Weakness Worship Director Required: No Accompanied by: Daughter Allergies amoxicillin (Augmentin) Allergy (Unknown, Verified 06/02/25 14:12) hives clavulanic acid (Augmentin) Allergy (Unknown, Verified 06/02/25 14:12) hives furosemide Allergy (Unknown, Verified 06/02/25 14:12) unknown latex (LATEX) Allergy (Unknown, Verified 06/02/25 14:12) UNKNOWN lisinopril Allergy (Unknown, Verified 06/02/25 14:12) Unknown oxycodone (Percocet) Allergy (Unknown, Verified 06/02/25 14:12) Stomach upset tramadol Allergy (Unknown, Verified 06/02/25 14:12) Stomach uspet Tobacco use date assessed: 04/28/25 Dental Screening Dental Screen Date: 04/28/25 HPI [facility] Information Date of Discharge 05/26/25 Discharged From [facility] Interactive Contact Date (Reference documentation from this date) 06/02/25 [facility] Medical History Paroxysmal atrial fibrillation Orthostatic hypotension Anemia Buttock wound Obesity (BMI 30-39.9) Neuropathy Acquired hypothyroidism Mixed hyperlipidemia Essential hypertension Atrial fibrillation Hypothyroidism Obesity Type 2 diabetes mellitus with morbid obesity Annual physical exam Vitamin D deficiency HLD (hyperlipidemia) T2DM (type 2 diabetes mellitus) Diabetes mellitus Hypertension Surgical History H/O hysterectomy for benign disease History of vitrectomy History of surgery History of colonoscopy (~01/28/19) History of appendectomy History of cholecystectomy S/P JOSIE (total abdominal hysterectomy) Family History Father Diabetes Mother CHF (congestive heart failure) CVD (cardiovascular disease) Brother HIV (human immunodeficiency virus infection) Social History Household Members: Children Household Members Other:: alternating among 2 daughters and 1 son Housing: House Do you presently have visiting nurse or other home services: No Alcohol intake: current Patient Tobacco Use Status: Former Tobacco user Tobacco use type: Cigarette Years Smoked: 30, started at 10, about 15 cig a day, e-Cigarette/Vaping Use: Former Use Second Hand Smoke Exposure: Yes Advance Directives Date on File: 12/15/23 service: No Current occupational status: retired Current occupational exposures/hazards: No Cognitive needs: No Hearing needs: No Vision needs: No Questionnaire Thrive Questionnaire Date Thrive assessed: 04/28/25 I am a: Parent/Caregiver What is your living situation today?: I have a steady place to live Within the past 12 months, did the food you bought not last and you didn't have the money to get more?: Never true Within the past 12 months, did you worry whether your food would run out before you got money to buy more?: Never true Do you have trouble paying for medicines?: No Do you have trouble getting transportation to medical appointments?: No Do you have trouble paying your heating and electricity bill?: No Do you have trouble taking care of your child, family member or friend?: No Do you have trouble with day-to-day activities such as bathing, preparing meals, shopping, managing finances, etc.?: No Are you currently unemployed and looking for a job?: No Are you interested in more education?: No Please select the resources that you would like help with: None Currently or been in a relationship where the following occur: No concerns reported THRIVE Score: 0 ARSLAN-7 AMB Questionnaire ARSLAN-7 Date ARSLAN - 7 assessed: 04/28/25 Source: Developed by Drs. Mendez Sanz, Shannan Quintanilla, Fuentes Sales and colleagues, with an educational aurelia from [employer]. Physical exam (Primary Care) Vital Signs: Last Vital Signs Temp 97.1 F 06/02/25 14:04 Pulse 58 06/02/25 14:04 BP 146/56 H 06/02/25 14:04 Pulse Ox 97 06/02/25 14:04 Oxygen Delivery Method Room Air 06/02/25 14:04 BMI result Body Mass Index 28.7 Tobacco/Smoking Status: Tobacco use Status Tobacco use date assessed 04/28/25 06/02/25 14:03 Patient Tobacco Use Status Former Tobacco user 06/02/25 14:03 Tobacco use type Cigarette 06/02/25 14:03 e-Cigarette/Vaping Use Former Use 06/02/25 14:03 Thrive Assessment: Date of Thrive Assessment Date Thrive assessed 04/28/25 06/02/25 14:03 Currently or been in a relationship where the following occur: No concerns reported Results AMB Hemoglobin A1c AMB Hemoglobin A1c 7.5 % Last Edit by REFUGIO Goodwin on 06/02/25 14:24 Coding Level of Care Code Est Pt Level 4 (70665) Complex EM visit Add On G2211 Diagnoses Essential hypertension I10 Paroxysmal atrial fibrillation I48.0 Mixed hyperlipidemia E78.2 Type 2 diabetes mellitus with morbid obesity E11.69; E66.01 Hypothyroidism E03.9 Hypomagnesemia E83.42 Iron deficiency anemia due to chronic blood loss D50.0 Anemia type: iron deficiency Iron deficiency anemia type: chronic blood loss Bilateral primary osteoarthritis of knee M17.0 CVA (cerebral vascular accident) I63.9 Assessment & Plan Assessment & Plan (1) Essential hypertension: Code(s): I10 - Essential (primary) hypertension Category: Medical Plan: Patient has been taken off blood pressure medication due to hypotension (2) Paroxysmal atrial fibrillation: Code(s): I48.0 - Paroxysmal atrial fibrillation Category: Medical Plan: Continue with anticoagulation with Eliquis and will need to have renal function test twice a day year. (3) Mixed hyperlipidemia: Code(s): E78.2 - Mixed hyperlipidemia Category: Medical Plan: Avoid fried foods, chicken skin, eggs, butter margarine, pastries and meat. Be it pork or beef they have a lot of cholesterol on atorvastatin 80 mg once a day LDL goal of less than 70 and triglyceride of less than 150. On Zetia also 10 mg once a day (4) Type 2 diabetes mellitus with morbid obesity: Comment: [facility] Code(s): E11.69 - Type 2 diabetes mellitus with other specified complication; E66.01 - Morbid (severe) obesity due to excess calories Category: Medical Plan: Decrease the amount of carbohydrate intake, pasta, bread, rice and potatoes are all sugar and that is aside from all the sweet stuff, remember that fruits are good but they are Sweet also. Controlled on metformin a 1000 mg twice a day discussed concerns about diarrhea and on Liraglutide (5) Hypothyroidism: Code(s): E03.9 - Hypothyroidism, unspecified Category: Medical Plan: Continue with thyroid medication (6) Hypomagnesemia: Code(s): E83.42 - Hypomagnesemia Category: Medical Plan: PPI taken off and was given magnesium supplement (7) Anemia: Code(s): D64.9 - Anemia, unspecified Category: Medical Qualifiers: Anemia type: iron deficiency Iron deficiency anemia type: chronic blood loss Qualified Code(s): D50.0 - Iron deficiency anemia secondary to blood loss (chronic) Plan: Continue to monitor (8) Bilateral primary osteoarthritis of knee: Code(s): M17.0 - Bilateral primary osteoarthritis of knee Category: Medical Plan: Continue to be active (9) CVA (cerebral vascular accident): Code(s): I63.9 - Cerebral infarction, unspecified Category: Medical Plan: On anticoagulation Plan History of Present Illness The patient is a 79-year-old female presenting for a follow-up visit. She has a history of diabetes mellitus, hypertension, hypercholesterolemia, hypothyroidism, bilateral knee osteoarthritis, and atrial fibrillation. Additionally, she has a history of cerebrovascular accident and chronic obstructive pulmonary disease. Recently, the patient experienced a mechanical fall at home on May 26, 2025, after missing a step and falling on her knees. She was hospitalized following this incident. The patient has been experiencing chronic diarrhea, which has been managed with Metamucil to bulk the stools. She reports that the diarrhea has resolved with this intervention. The patient has a history of anemia, with recent blood work showing stable hemoglobin levels at 10.2 g/dL and hematocrit at 32.3%. Her magnesium levels have been low, with a recent reading of 1.5 mg/dL, prompting the discontinuation of her proton pump inhibitor and initiation of magnesium supplements. Health Maintenance - Discussed the importance of adequate hydration to manage blood pressure and kidney function. - Encouraged dietary modifications to include more vegetables and less red meat to manage cholesterol levels. - Recommended regular physical activity and continuation of physical therapy. - Discussed the need for regular monitoring of magnesium levels and kidney function. Social History - The patient lives with family and has a supportive home environment. - She has a dog, which is a concern for fall risk. - Dietary habits include consumption of red meat, pork, and vegetables, with an emphasis on increasing fiber intake. - Engages in regular physical activity and is currently undergoing physical therapy. Review of Systems - General: Denies weight loss, fever, or fatigue. - Cardiovascular: Reports history of atrial fibrillation. Denies chest pain or palpitations. - Respiratory: Reports history of COPD. Denies dyspnea or cough. - Gastrointestinal: Reports resolved diarrhea with Metamucil use. Denies nausea or vomiting. - Musculoskeletal: Reports bilateral knee osteoarthritis. Denies joint swelling or redness. - Neurological: Reports history of CVA. Denies headaches or dizziness. Physical Exam - General: Patient appears well-nourished and in no acute distress. Results - Labs: Hemoglobin 10.2 g/dL, Hematocrit 32.3%, Magnesium 1.5 mg/dL, LDL 46 mg/dL, Hemoglobin A1c 7.5%. Plan The patient will continue with her current regimen of anticoagulation therapy with Eliquis, and renal function will be monitored biannually to ensure safety and efficacy. Her cholesterol management will continue with atorvastatin 80 mg daily and Zetia 10 mg daily, aiming for an LDL goal of less than 70 mg/dL and triglycerides less than 150 mg/dL. Diabetes management will be maintained with metformin 1000 mg twice daily, and dietary modifications will be encouraged to support glycemic control. The patient will continue her thyroid medication as prescribed, and her magnesium supplementation will be monitored to address hypomagnesemia. Physical therapy will be continued to support mobility and reduce fall risk, and the patient is advised to maintain hydration to support blood pressure and kidney function. A follow-up with cardiology is scheduled, and the patient is encouraged to adhere to her medication regimen and lifestyle modifications to manage her chronic conditions effectively. Patient was informed and verbally consented to the use of an ambient scribe for clinic note documentation during this visit. Discussion Notes During the visit, I discussed with the patient the importance of continuing her current medication regimen, including anticoagulation therapy with Eliquis and cholesterol management with atorvastatin and Zetia. We reviewed the need for regular monitoring of her renal function and magnesium levels, given her history of hypomagnesemia. I emphasized the significance of dietary modifications, including increased vegetable intake and reduced red meat consumption, to support her overall health and manage her chronic conditions. We also discussed the continuation of physical therapy to enhance mobility and reduce fall risk, and I advised on maintaining adequate hydration to support blood pressure and kidney function. The patient was informed about the importance of adhering to her follow-up appointments, including her upcoming cardiology visit, to ensure comprehensive management of her health conditions. Patient Instructions - Continue taking all prescribed medications as directed. - Maintain a diet rich in vegetables and low in red meat to help manage cholesterol and blood pressure. - Stay hydrated by drinking adequate water throughout the day, but limit intake before bedtime to reduce nighttime urination. - Engage in regular physical activity and continue with physical therapy exercises as recommended. - Attend all scheduled follow-up appointments, including cardiology and lab tests. Orders: Orders Magnesium Today E83.42 - Hypomagnesemia Complete Blood Count Auto Diff Today D64.9 - Anemia, unspecified Hemoglobin A1c Today E11.9 - Type 2 diabetes mellitus without complications Lipid Panel Today E78.00 - Pure hypercholesterolemia, unspecified Thyroid Stimulating Hormone Today E03.9 - Hypothyroidism, unspecified UA and rflx microscopic Today E11.9 - Type 2 diabetes mellitus without complications, I10 - Essential (primary) hypertension, I48.0 - Paroxysmal atrial fibrillation Vitamin D 25-OH Total Today E55.9 - Vitamin D deficiency, unspecified AMB Hemoglobin A1c Today E11.40 - Type 2 diabetes mellitus with diabetic neuropathy, unspecified Comprehensive [place]. Panel Fast Today E78.00 - Pure hypercholesterolemia, unspecified Free T4 (Free Thyroxine) Today E03.9 - Hypothyroidism, unspecified Microalbumin, Random (w Creat) Today E11.9 - Type 2 diabetes mellitus without complications
--- OUTSIDE RECORDS SUMMARY | 2025-06-02 14:02 | XMS_ITS | Clinical Summary ---
Author Organization [facility] Address [address] [place] [address] Care Team Providers Care Tool Specialist Name Role Phone Allen Cortés MD Primary Care Provider [phone] Allergies No known active allergies Medications ezetimibe [...] Date Smoking Tobacco: Never Assessed [facility] Utilities Answer Date Recorded In the [...] place to sleep or slept in a fci (including now)? No 06/27/2024 Comments Unknown Sex [...] 65 - 99 mg/dL 06/29/2024 12:04 PM [facility] Comment:Fasting: <100 mg/dL, Non-Fasting: <200 mg/dL (ADA 2004) Blood Urea Nitrogen (BUN) 12 8 - 21 mg/dL 06/29/2024 12:04 PM [facility] Creatinine 0.8 0.4 - 1.1 mg/dL 06/29/2024 12:04 PM [facility] eGFR 75 >59 06/29/2024 12:04 PM [facility] Comment:CKD-EPI (2020) in mL /min/1.73 sq meters. Sodium 140 136 - 145 mmol/L 06/29/2024 12:04 PM [facility] Potassium 4.3 3.4 - 5.3 mmol/L 06/29/2024 12:04 PM [facility] Chloride 104 98 - 107 mmol/L 06/29/2024 12:04 PM [facility] CO2 23 22 - 33 mmol/L 06/29/2024 12:04 PM [facility] Anion Gap 13 7 - 17 06/29/2024 12:04 PM [facility] Calcium 8.9 8.7 - 10.5 mg/dL 06/29/2024 12:04 PM [facility] BUN/Creatinine Ratio 15 10.0 - 25.0 Ratio 06/29/2024 12:04 PM [facility] Blood (Plasma/Serum) 06/29/2024 10:27 AM EDT 06/29/2024 11:25 AM EDT us Byron Victoria MD LAB BLOOD ORDERABLES Final Resu lt Performing Organization Address City/[facility] [address]/[place] [address], [place] [address] * (ABNORMAL) Hemoglobin A1c with Estimated Average Glucose (06/27/2024 8:21 AM EDT) Hemoglobin A1C 7.0(H) <5.7 % 06/27/2024 9:07 AM T [facility] Comment: A1c% Interpretation 5.7 - 6.0 Increase risk of diabetes 6.1 - 6.4 Higher risk of diabetes > or = 6.5 Consistent with diabetes Diabetes Care, 33(Supp 1):S1-S61, 2010 Estimated Average Glucose 154 mg/dL 06/27/2024 9:07 AM [facility] Blood Blood specimen / Unknown 06/27/2024 8:21 AM EDT 06/27/2024 8:32 AM EDT Paul Ospina MD LAB BLOOD ORDERABLES Final Result Performing Organization Address City/[facility] [address]/[place] [address], [place] [address] * (ABNORMAL) Lipid Panel (06/27/2024 8:21 AM EDT) Cholesterol, Total 141 <200 mg/dL 2023 9:18 AM [facility] Triglycerides 169(H) <150 mg/dL 06/27/2024 9:18 AM [facility] Cholesterol, HDL 58 >39 mg/dL 06/27/20 9:18 AM [facility] Estimated LDL 49 <130 mg/dL 06/27/2024 9:18 AM [facility] Comment: NCEP Guidelines: < 100 mg/dL Optimal 100 - 129 mg/dL Near Optimal/Above Optimal 130 - 159 mg/dL Borderline High 160 - 189 mg/dL High >/= 190 mg/dL Very High Cholesterol/HDL Ratio 2.4 0.0 - 5.0 Ratio 06/27/2024 9:18 AM [facility] Comment: Relative Risk Ratio - Male Ratio - Female 0.5 3.4 3.3 1.0 5.0 4.4 2.0 9.6 7.1 3.0 23.4 11.0 Blood (Plasma/Serum) 06/27/2024 8:21 AM EDT 06/27/2024 8:32 AM EDT Paul Ospina MD LAB BLOOD ORDERABLES Final Result [facility] [address] [place] [address], [facility] [address] [place] [address] from Last 3 Months or Most Recently Relevant to Health Maintenance Insurance MEDICARE PART A & B [facility] MEDICARE Advance Directives * DNR (Latest Code Status on File) Date Activated Date Inactivated Comments 06/27/2024 4:12 PM Question Answer Comments Decision thoroughly discussed with: Gail ent arrived with valid State [place] DNR Transfer form * Full Code Date Activated Date Inactivated Comments 06/26/2024 8:41 PM 06/27/2024 4:12 PM Care Teams Tool Specialist Relationship Specialty Start Date End Date Allen Cortés MD [address] [place] [address] PCP - General 06/26/24
--- OUTSIDE RECORDS SUMMARY | 2025-06-02 14:02 | XMS_ITS | Patient Health Record ---
Author Organization [facility] Address [address] [place] [address] Care Team Providers Care Malted Milk Mixer Name Role Phone Milana NAATRAJAN, Allen Primary Care Provider Desire Arias Unavailable [phone] Allergies No Known Allergies Reason For Referral [...] Immunizations Vaccine Route Administration Date Status Comme [facility] COVID-19 Moderna Vaccine Unknown 09/12/2021 Administered First [...] Problem Acquired hammer toe of right foot (9649172907691752 ) Other hammer toe(s) (acquired), right foot (M20.41) Active confirmed Problem Acquired hammer toe of left foot (5948662771264991 ) Other hammer toe(s) (acquired), left foot (M20.42) Active confirmed Problem Acquired hammer toe of left foot (5149807232175831 ) Hammer toe of left foot (M20.42) Active confirmed Problem Polyneuropathy due to type 2 diabetes mellitus (711141185) 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.42) Active confirmed Problem Localized, primary osteoarthritis of the ankle and/or foot (723639292) Osteoarthritis of left ankle and foot (M19.072) Active confirmed Encounters Encounter Location Date Provider Diagnosis [facility] [address] [place] [address] 07/11/2024 Desire Ashford Plan Of Treatment Pending Test Test Name Order Date [id number] NAIL, 6 OR MORE 01/23/2015 [id number] Plate 01/23/2015 [id number] Plate Each Additional 01/2015 [id number] SKIN LESIONS, OVER 4 01/24/20 15 Insurance Providers Payer Name Payer Address Payer Phone Subscriber Number Group Number Insured Name Patient Relationship to Insured Coverage Start Date Coverage End Date [employer] [address] [place] [address] [id number] Naty Crevantes Self - patient is the insured Medical (General) History Medical History History ICD Code Chicken pox Measles Mumps Hypertension Thyroid disorder Diabetic Arthritis Back,Hip,and Knee pain CAD (Cholesterol) Gall bladder problems Vascular phlebitis (clots) Stroke Cataracts Hearing loss Surgical History Surgery Date(Month/Year) cholecystectomy hysterectomy 1994 back surgery 1991 gall bladder 1970 cataract surgery Hospitalization History Reason Date(Month/Year) [facility]- rehab
--- OUTSIDE RECORDS SUMMARY | 2025-06-02 14:02 | XMS_ITS | Encounter Summary ---
Author Organization [facility] Address [address] [place] [address] Care Team Providers Care Kiln Feeder Name Role Phone Trevor Rios MD Primary Care Provider [phone] Encounter Details Date Type Department Care Team (Late st Contact Info) Description 04/16/2025 Lab Requisition [facility] - Main Lab [address] [facility] [place] [address] Bruce Welch MD [address] [place], [place] [id number] Vitamin D deficiency, unspecified; Essential (primary) hypertension; [...] mmol/L LAB CHEMISTRY METHOD 04/18/2025 12:48 PM [facility] Potassium 4.5 3.5 - 5.5 mmol/L LAB CHEMISTRY METHOD 04/18/2025 12:48 PM [facility] Chloride 102 96 - 110 mmol/L LAB CHEMISTRY METHOD 04/18/2025 12:48 PM [facility] CO2 26 21 - 32 mmol/L LAB CHEMISTRY METHOD 04/18/2025 12:48 PM [facility] Anion Gap 10 3 - 11 LAB CHEMISTRY METHOD 04/18/2025 12:48 PM [facility] Glucose 73 70 - 100 mg/dL LAB CHEMISTRY METHOD 04/18/2025 12:48 PM [facility] BUN 16 5 - 25 mg/dL LAB CHEMISTRY METHOD 04/18/2025 12:48 PM [facility] Creatinine 0.68 0.50 - 1.10 mg/dL LAB CHEMISTRY METHOD 04/18/2025 12:48 PM [facility] eGFR 89 >=60 mL/min/1. 73m2 LAB CHEMISTRY METHOD 04/18/2025 12:48 PM [facility] Comment:Calculation based on the Chronic Kidney Disease Epidemiology Collaboration (CKD-EPI) equation refit without adjustment for race. BUN/Creatinine Ratio 23.5 LAB CHEMISTRY METHOD 04/18/2025 12:48 PM [facility] Calcium 9.2 8.5 - 10.5 mg/dL LAB CHEMISTRY METHOD 04/18/2025 12:48 PM [facility] Blood Venous blood specimen / Unknown Venipuncture / Unknown 04/18/2025 6:41 AM EDT 04/18/2025 10:47 AM EDT us Bruce Welch MD LAB BLOOD ORDERABLES Final Resul t [facility] [address] [place] [address], [place] [phone] * (ABNORMAL) Complete blood count (04/18/2025 6:41 AM EDT) WBC 8.4 4.8 - 10.8 K/mcL LAB HEMETOLOGY METHOD 04/18/2025 12:24 PM EDT [facility] RBC 3.60(L) 3.80 - 4.80 M/mcL LAB HEMETOLOGY METHOD 04/18/2025 12:24 PM EDT [facility] Hemoglobin 8.7(L) 11.5 - 16.0 g/dL LAB HEMETOLOGY METHOD 04/18/2025 12:24 PM EDT [facility] Hematocrit 29.8(L) 35.0 - 47.0 % LAB HEMETOLOGY METHOD 04/18/2025 12:24 PM EDT [facility] MCV 83.7 79.0 - 98.0 FL LAB HEMETOLOGY METHOD 04/18/2025 12:24 PM EDT [facility] MCH 24.4(L) 27.0 - 32.0 pcg LAB HEMETOLOGY METHOD 04/18/2025 12:24 PM EDT [facility] MCHC 29.2(L) 32.0 - 37.0 g/dL LAB HEMETOLOGY METHOD 04/18/2025 12:24 PM EDT [facility] RDW 15.3(H) 11.0 - 15.0 % LAB HEMETOLOGY METHOD 04/18/2025 12:24 PM EDT [facility] Platelets 411(H) 130 - 400 K/mcL LAB HEMETOLOGY METHOD 04/18/2025 12:24 PM EDT [facility] MPV 11.1(H) 7.0 - 11.0 FL LAB HEMETOLOGY METHOD 04/18/2025 12:24 PM EDT [facility] NRBC 0.0 <1.0 % LAB [facility] METHOD 04/18/2025 12:24 PM EDT [facility] NRBC Absolute 0.00 <0.10 K/mcL LAB HEMETOLOGY METHOD 04/18/2025 12:24 PM EDT [facility] Blood Venous blood specimen / Unknown Venipuncture / Unknown 04/18/2025 6:41 AM EDT 04/18/2025 10:47 AM EDT Bruce Welch MD LAB BLOOD ORDERABLES Final Resul t [facility] [address] [place] [address], documented in this encounter Visit Diagnoses Diagnosis Vitamin D deficiency, unspecified Essential (primary) hypertension Unspecified essential hypertension Unspecified atrial fibrillation (CMS/HCC V24, CMS/HCC V28) Type 2 diabetes mellitus without complications (CMS/HCC V24, CMS/HCC V28) documented in this encounter Care Teams Kiln Feeder Relationship Specialty Start Date End Date Trevor Rios MD PCP - General Internal Medicine 09/02/24 documented as of this encounter
--- OUTSIDE RECORDS SUMMARY | 2025-06-02 14:02 | XMS_ITS | Patient Health Record ---
Author Organization [facility] Address [address] [place] [address] Care Team Providers Care Inset Cutter Name Role Phone Wilbur Velázquez M.D. 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 non-steroidal anti-inflammato rex (NSAID) (Z79.1) Active confirmed Problem 402753252 alf (current) use of insulin (Z79.4) Active confirmed Plan Of Treatment Future Test Test Name Order Date COLONOSCOPY 06/09/2018 Insurance Providers Payer Name Payer Address Payer Phone Subscriber Number Group Number Insured Name Patient Relationship to Insured Coverage Start Date Coverage End Date [facility] [address] [place] [phone] [id number] ALFONSO CUNHA Self - patient is the insured Medical (General) History Medical History History ICD Code hypertension diabetes mellitus elevated cholesterol hypothyroidism arthritis Surgical History Surgery Date(Month/Year) hysterectomy back surgery cholecystectomy cataract-lens implants both eyes
[2025-06-02 14:04] VITALS: BP 146/56; PULSE 58; TEMP 36.2; O2SAT 97; BMI 28.7
== END 2025-06-02 15:02 | disposition home or self-care (01) ==
LOC: HO.HMCH 13:58
PROVIDERS: PCP Internal Medicine; Visit Provider Internal Medicine
DX: I48.0 Paroxysmal atrial fibrillation (principal); E11.69 Type 2 diabetes mellitus with other specified complication; E66.01 Morbid (severe) obesity due to excess calories; Z68.28 Body mass index [BMI] 28.0-28.9, adult; I63.9 Cerebral infarction, unspecified; E11.40 Type 2 diabetes mellitus with diabetic neuropathy, unspecified; I10 Essential (primary) hypertension; E78.2 Mixed hyperlipidemia; E03.9 Hypothyroidism, unspecified; E83.42 Hypomagnesemia; D50.0 Iron deficiency anemia secondary to blood loss (chronic); M17.0 Bilateral primary osteoarthritis of knee

== ENCOUNTER → 2025-06-02 13:58 | Outpatient (BNVA) | payer MEDICARE, SELFPAY | PROVIDERS: PCP Internal Medicine; Visit Provider Internal Medicine | DX: E78.2 Mixed hyperlipidemia (principal); I10 Essential (primary) hypertension; I48.0 Paroxysmal atrial fibrillation; E11.69 Type 2 diabetes mellitus with other specified complication; E66.01 Morbid (severe) obesity due to excess calories; E03.9 Hypothyroidism, unspecified; E83.42 Hypomagnesemia; D50.0 Iron deficiency anemia secondary to blood loss (chronic); M17.0 Bilateral primary osteoarthritis of knee; Z86.73 Personal history of transient ischemic attack (TIA), and cerebral infarction without residual deficits | CPT/HCPCS: 83036; 99212 ==

== ENCOUNTER 2025-06-14 18:51 | Emergency (ER) | payer MEDICARE, SELFPAY ==
--- NOTE | ~2025-06-14 | XR_ITS ---
CLINICAL HISTORY: fall 2 view left knee Comparison: CR/SR - XR KNEE 3 VIEWS LEFT - 05/24/25 11:44 EDT Findings: Osteopenia. No acute fracture. Advanced tricompartmental osteoarthritis with joint space narrowing pronounced in the medial and patellofemoral compartments. Chondrocalcinosis. No joint effusion. No radiopaque foreign body. Vascular calcifications. IMPRESSION: Chronic changes without acute fracture. This document has been electronically signed by: Segundo Issa MD on 06/14/2025 20:48:00
--- NOTE | ~2025-06-14 | CT_ITS ---
CLINICAL HISTORY: Fall; Anticoagulated CT head without contrast Comparison: CT/SR - CT HEAD WITHOUT IV CONTRAST - 05/24/25 11:51 EDT Findings: Scattered subcortical and periventricular hypoattenuation, likely in keeping with chronic small vessel ischemic disease. Parenchymal volume loss with compensatory prominence of the ventricles and CSF spaces. No acute territorial infarction, intracranial hemorrhage, midline shift or hydrocephalus. Empty sella is demonstrated, nonspecific. Redemonstrated encephalomalacia/gliosis in the right MCA territorial with mild ex vacuo dilatation of the right lateral ventricle. Left-sided dural calcification along the anterior falx. The visualized paranasal sinuses and mastoid air cells are normal. The orbits are unremarkable. There is no acute fracture. Bilateral lens extraction. IMPRESSION: 1. No acute intracranial hemorrhage or territorial infarction. 2. Additional findings as described. This document has been electronically signed by: Segundo Issa MD on 06/14/2025 22:16:12
--- NOTE | ~2025-06-14 | XR_ITS ---
CLINICAL HISTORY: Fall; Hip Pain 3 view, pelvis and right hip Comparison: CT/SR - CT ABDOMEN PELVIS WO IV CON - 04/02/25 15:35 EDT CR/SR - XR HIP LT W PEL 1V - 12/15/24 14:24 EST, CR/SR - XR HIP RT W PEL1V - 10/10/2023 11:41 AM EST Findings: No acute fracture or malalignment. Osteopenia with similar heterogeneous sclerosis throughout, nonspecific. Degenerative changes throughout the SI joints, pubic symphysis and hips bilaterally. The soft tissues are unremarkable. IMPRESSION: Chronic changes without acute findings. This document has been electronically signed by: Segundo Issa MD on 06/14/2025 21:05:42
--- NOTE | ~2025-06-14 | CT_ITS ---
CLINICAL HISTORY: Fall; Neck Pain CT cervical spine without contrast Comparison: None provided Findings: Straightening of the cervical lordosis. Osteopenia. Diffuse heterogeneous lucencies throughout, nonspecific. Multilevel spondylosis with osteophytosis, uncovertebral hypertrophy, facet arthropathy and degenerative disc disease. Diffuse ankylosis along the mlcde-vaazwlc-gaeb-left posterior elements of the cervical spine of the anterolisthesis at C7-T1. Diffuse spinal canal narrowing, for example moderate at C5-C6 with severe bilateral foraminal stenoses. No acute fractures or dislocations. Soft tissues of the neck are normal. Minimal emphysema. IMPRESSION: No acute findings. Additional findings as described. This document has been electronically signed by: Segundo Issa MD on 06/14/2025 22:14:38
[2025-06-14 19:07] VITALS: BP 115/80; PULSE 66; O2SAT 99
[2025-06-14 19:09] VITALS: BP 138/58; PULSE 63; RESP 16; TEMP 36.8; O2SAT 94
[2025-06-14 19:14] VITALS: BMI 29.5
[2025-06-14 19:35] LABS: MANUAL DIFF FLAG NO
[2025-06-14 19:36] LABS: Hematocrit 31.5 % (37.0-47.0); Hemoglobin 10.1 g/dl (12.0-16.0); Imm Gran Abs Auto 0.02 X10*3/uL (0.00-0.03); Imm Gran Pct Auto 0.3 % (0.0-0.4); Lymphocytes Absolute Auto 2.1 X10*3/uL (1.2-4.9); Mean Corpuscular HGB Conc 32.1 g/dl (31.0-35.0); Mean Corpuscular Hemoglobin 25.8 pg (27.0-33.0); Mean Corpuscular Volume 80.6 fL (80.0-98.0); NRBC Abs Auto 0.000 X10*3/uL (0.0-0.012); NRBC Pct Auto 0.0 /100WBC (0.0-0.2); Platelet Count 247 X10*3/uL (160-400); Red Blood Count 3.91 X10*6/uL (4.20-5.50); White Blood Count 7.0 X10*3/uL (4.8-10.8)
--- NOTE | 2025-06-14 19:41 | ECG_ITS ---
Test Reason : FALL Blood Pressure : */* mmHG Vent. Rate : 65 BPM Atrial Rate : 65 BPM P-R Int : 170 ms QRS Dur : 98 ms QT Int : 416 ms P-R-T Axes : 78 -30 41 degrees QTcB Int : 432 ms Normal sinus rhythm Left axis deviation Moderate voltage criteria for LVH, may be normal variant ( R in aVL , [place] product ) Abnormal ECG When compared with ECG of 24-May-2025 11:17, No significant change was found Referred By: Generic ED Physician Electronically Signed By: Sai Montoya
--- OUTSIDE RECORDS SUMMARY | 2025-06-14 19:43 | XMS_ITS | Clinical Summary ---
Author Organization [facility] Address [address] [place] [address] Care Team Providers Care Vice President Residential [employer] Sales Name Role Phone Allen Cortés MD Primary Care Provider [phone] Allergies No known active allergies Medications ezetimibe [...] Years Used Date Smoking Tobacco: Never Assessed [facility] Utilities Answer Date Recorded In [...] place to sleep or slept in a residential (including now)? No 06/27/2024 Comments Unknown Sex [...] 65 - 99 mg/dL 06/29/2024 12:04 PM [facility] Comment:Fasting: <100 mg/dL, Non-Fasting: <200 mg/dL (ADA [...] ORDERABLES Final Resu lt Performing Organization Address City/[facility]/[place] [address], [place] [address] * (ABNORMAL) Hemoglobin A1c with Estimated Average Glucose (06/27/2024 8:21 AM EDT) Hemoglobin A1C 7.0(H) <5.7 % 06/27/2024 9:07 AM T [facility] Comment: A1c% Interpretation 5.7 - 6.0 [...] BLOOD ORDERABLES Final Result Performing Organization Address City/[facility]/[place] [address], [place] [address] * (ABNORMAL) Lipid Panel (06/27/2024 8:21 AM EDT) Cholesterol, Total 141 <200 mg/dL 2023 9:18 AM [facility] Triglycerides 169(H) <150 mg/dL 06/27/2024 9:18 AM [facility] Cholesterol, HDL 58 >39 mg/dL 06/27/20 9:18 AM [facility] Estimated LDL 49 <130 mg/dL 06/27/2024 9:18 AM [facility] Comment: NCEP Guidelines: < 100 mg/dL Optimal 100 - 129 mg/dL Near Optimal/Above Optimal 130 - 159 mg/dL Borderline High 160 - 189 mg/dL High >/= 190 mg/dL Very High Cholesterol/HDL Ratio 2.4 0.0 - 5.0 Ratio 06/27/2024 9:18 AM [facility] Comment: Relative Risk Ratio - Male Ratio - Female 0.5 3.4 3.3 1.0 5.0 4.4 2.0 9.6 7.1 3.0 23.4 11.0 Blood (Plasma/Serum) 06/27/2024 8:21 AM EDT 06/27/2024 8:32 AM EDT Paul Ospina MD LAB BLOOD ORDERABLES Final Result [facility] [address] [place] [address], [facility] [address] [place] [address] from Last 3 Months or Most Recently Relevant to Health Maintenance Insurance MEDICARE PART A & B [facility] MEDIC[facility] Advance Directives * DNR (Latest Code Status on File) Date Activated Date Inactivated Comments 06/27/2024 4:12 PM Question Answer Comments Decision thoroughly discussed with: Gail ent arrived with valid State [place] DNR Transfer form * Full Code Date Activated Date Inactivated Comments 06/26/2024 8:41 PM 06/27/2024 4:12 PM Care Teams Vice President Residential Solar Sales Relationship Specialty Start Date End Date Allen Cortés MD [address] [place] [address] PCP - General 06/26/24
--- OUTSIDE RECORDS SUMMARY | 2025-06-14 19:43 | XMS_ITS | Clinical Summary ---
Author Organization [facility] Address [address] [address] Phone Care Team Providers Care Heritage Consultant Name Role Phone Trevor Rios MD Primary Care Provid er Allergies Active Allergy Reactions Criticality Noted Date Comments Amoxicillin 07/28/2024 Furosemide 07/28/2024 Latex 07/28/2024 Lisinopril 07/28/2024 Oxycodone 07/28/2024 Tramadol 07/28/2024 Medications apixaban (ELIQUIS) 5 mg tablet Take 5 mg by mouth 2 (two) times a day. 07/21/2024 Active ascorbic acid, vitamin C, (VITAMIN C) 500 MG tablet Take 500 mg by mouth daily. 07/21/2024 Active aspirin 81 MG EC tablet Take 81 mg by mouth daily. 07/21/2024 Active atorvastatin (LIPITOR) 80 MG tablet Take 80 mg by mouth daily. 07/21/2024 Active ezetimibe (ZETIA) 10 mg tablet Take 10 mg by mouth daily. 07/21/2024 Active gabapentin (NEURONTIN) 100 MG capsule Take 300 mg by mouth nightly at bedtime. 07/21/2024 Active levothyroxine (SYNTHROID, LEVOTHROID) 112 MCG tablet Take 112 mcg by mouth every morning. 07/21/2024 Active liraglutide (VICTOZA 2-NANCY) 0.6 mg/0.1 mL (18 mg/3 mL) PnIj Inject 1.2 mg under the skin daily. 07/21/2024 Active losartan (COZAAR) 25 MG tablet Take 12.5 mg by mouth daily. 07/21/2024 Active magnesium oxide 400 mg magnesium Tab Take 400 mg by mouth daily. 07/21/2024 Active metFORMIN (GLUCOPHAGE-XR) 500 MG 24 hr tablet Take 1,000 mg by mouth 2 (two) times a day. 07/21/2024 Active MULTIVITAMIN WITH MINERALS ORAL Take 1 tablet by mouth daily. 07/21/2024 Active gabapentin (NEURONTIN) 100 MG capsule Take 100 mg by mouth daily. 07/21/2024 Active ofloxacin (OCUFLOX) 0.3 % ophthalmic solution Place 1 drop into the left eye 4 (four) times a day. 08/18/2024 Active prednisoLONE acetate (PRED FORTE) 1 % ophthalmic suspension Place 1 drop into the left eye 4 (four) times a day. 08/18/2024 Active Encounters Date Type Department Care Team Description 05/25/2025 Orders Only [facility] [address] [place] [address] Homehealth, Interface ProviderMD 04/19/2025 Orders Only [facility] [address] [place] [address] Homehealth, Interface ProviderMD from Last 3 Months Social History Tobacco Use Types Packs/Day Years Used Date Smoking Tobacco: Never Assessed Home Health Assessment: Transportation Answer Date Recorded Lack of Transportation (Medical) No 09/01/2024 Lack of Transportation (Non-Medical) No 09/01/2024 Patient Unable or Declines to Respond No 09/01/2024 Education Answer Date Recorded Are you interested in more education? Not on j carlos e 10/11/2023 Are you concerned about learning? Not on file 10/11/2023 No 10/11/2023 No 10/11/2023 Digital Access Answer Date Recorded No 10/11/2023 No 10/11/2023 Reliable internet access at home? Not on file 10/11/2023 Device with a working camera? Not on file Comments Unknown Sex and Gender Information Value Date Recorded Sex Assigned at Not on file Legal Sex Female 2:41 PM EST Gender Identity Not on file Sexual Orientation Not on file Last Filed Vital Signs Vital Sign Reading Time Taken Comments Blood Pressure 124/62 09/01/2024 12:25 PM EDT Pulse 86 09/01/2024 12:25 PM EDT Temperature 36.8 C (98.2 F) 09/01/2024 12:25 PM EDT Respiratory Rate 16 09/01/2024 12:25 PM EDT Oxygen Saturation 96% 09/01/2024 12:25 PM EDT Inhaled Oxygen Concentration - - Weight - - Height - - Body Mass Index - - Plan of Treatment Not on file Medical Devices Not on file Insurance [employer] H[employer] REPLACEMENT [employer] RE[employer] REPLAC[employer] Advance Directives For more information, please contact: [phone] (9AM - 5PM [facility], Thursday-Thursday) Documents on File Type Date Recorded Patient Talent Acquisition Sourcer Expl stefanie MOL 08/05/2024 Care Teams Heritage Consultant Relationship Specialty Start Date End Date Trevor Rios MD [address] [place] [id number] PCP - General Internal Medicine 09/02/24 Additional Source Comments The information contained in this document represents components of the legal health record. It is not the complete legal health record.[facility]
--- OUTSIDE RECORDS SUMMARY | 2025-06-14 19:43 | XMS_ITS | Encounter Summary ---
Author Organization [facility] Address [address] [place] [address] Care Team Providers Care Hvac Technician Name Role Phone Trevor Rios MD Primary Care Provider [phone] Encounter Details Date Type Department Care Team (Late st Contact Info) Description 04/16/2025 Lab Requisition [facility] Main Lab [address] [facility] [place] [address] Bruce [place] MD [address] [place], [place] [id number] Vitamin D deficiency, unspecified; Essential (primary) hypertension; [...] mmol/L LAB CHEMISTRY METHOD 04/18/2025 12:48 PM [facility] Potassium 4.5 3.5 - 5.5 mmol/L LAB CHEMISTRY METHOD 04/18/2025 12:48 PM [facility] Chloride 102 96 - 110 mmol/L LAB CHEMISTRY METHOD 04/18/2025 12:48 PM [facility] CO2 26 21 - 32 mmol/L LAB CHEMISTRY METHOD 04/18/2025 12:48 PM [facility] Anion Gap 10 3 - 11 LAB CHEMISTRY METHOD 04/18/2025 12:48 PM [facility] Glucose 73 70 - 100 mg/dL LAB CHEMISTRY METHOD 04/18/2025 12:48 PM [facility] BUN 16 5 - 25 mg/dL LAB CHEMISTRY METHOD 04/18/2025 12:48 PM [facility] Creatinine 0.68 0.50 - 1.10 mg/dL LAB CHEMISTRY METHOD 04/18/2025 12:48 PM [facility] eGFR 89 >=60 mL/min/1. 73m2 LAB CHEMISTRY METHOD 04/18/2025 12:48 PM [facility] Comment:Calculation based on the Chronic Kidney Disease Epidemiology Collaboration (CKD-EPI) equation refit without adjustment for race. BUN/Creatinine Ratio 23.5 LAB CHEMISTRY METHOD 04/18/2025 12:48 PM [facility] Calcium 9.2 8.5 - 10.5 mg/dL LAB CHEMISTRY METHOD 04/18/2025 12:48 PM [facility] Blood Venous blood specimen / Unknown Venipuncture / Unknown 04/18/2025 6:41 AM EDT 04/18/2025 10:47 AM EDT us Bruce [place] MD LAB BLOOD ORDERABLES Final Resul t [facility] [address] [place] [address], [place] [phone] * (ABNORMAL) Complete blood count (04/18/2025 6:41 AM EDT) WBC 8.4 4.8 - 10.8 K/mcL LAB HEMETOLOGY METHOD 04/18/2025 12:24 PM EDT [facility] RBC 3.60(L) 3.80 - 4.80 M/mcL LAB HEMETOLOGY METHOD 04/18/2025 12:24 PM EDT [facility] Hemoglobin 8.7(L) 11.5 - 16.0 g/dL LAB HEMETOLOGY METHOD 04/18/2025 12:24 PM EDT [facility] Hematocrit 29.8(L) 35.0 - 47.0 % LAB HEMETOLOGY METHOD 04/18/2025 12:24 PM EDT [facility] MCV 83.7 79.0 - 98.0 FL LAB HEMETOLOGY METHOD 04/18/2025 12:24 PM EDT [facility] MCH 24.4(L) 27.0 - 32.0 pcg LAB HEMETOLOGY METHOD 04/18/2025 12:24 PM EDT [facility] MCHC 29.2(L) 32.0 - 37.0 g/dL LAB HEMETOLOGY METHOD 04/18/2025 12:24 PM EDT [facility] RDW 15.3(H) 11.0 - 15.0 % LAB HEMETOLOGY METHOD 04/18/2025 12:24 PM EDT [facility] Platelets 411(H) 130 - 400 K/mcL LAB HEMETOLOGY METHOD 04/18/2025 12:24 PM EDT [facility] MPV 11.1(H) 7.0 - 11.0 FL LAB HEMETOLOGY METHOD 04/18/2025 12:24 PM EDT [facility] NRBC 0.0 <1.0 % LAB [facility] METHOD 04/18/2025 12:24 PM EDT [facility] NRBC Absolute 0.00 <0.10 K/mcL LAB HEMETOLOGY METHOD 04/18/2025 12:24 PM EDT [facility] Blood Venous blood specimen / Unknown Venipuncture / Unknown 04/18/2025 6:41 AM EDT 04/18/2025 10:47 AM EDT Bruce [place] MD LAB BLOOD ORDERABLES Final Resul t [facility] [address] [place] [address], documented in this encounter Visit Diagnoses Diagnosis Vitamin D deficiency, unspecified Essential (primary) hypertension Unspecified essential hypertension Unspecified atrial fibrillation (CMS/HCC V24, CMS/HCC V28) Type 2 diabetes mellitus without complications (CMS/HCC V24, CMS/HCC V28) documented in this encounter Care Teams Hvac Technician Relationship Specialty Start Date End Date Trevor Rios MD PCP - General Internal Medicine 09/02/24 documented as of this encounter
--- OUTSIDE RECORDS SUMMARY | 2025-06-14 19:43 | XMS_ITS | Patient Health Record ---
Author Organization [facility] Address [address] [place] [address] Care Team Providers Care Case Maker Name Role Phone Milana NATARAJAN, Allen Primary Care Provider Desire Arias Unavailable [phone] Allergies No Known Allergies Reason For Referral [...] Problem Acquired hammer toe of right foot (8921861688333008 ) Other hammer toe(s) (acquired), right foot (M20.41) Active confirmed Problem Acquired hammer toe of left foot (2443325236320737 ) Other hammer toe(s) (acquired), left foot (M20.42) Active confirmed Problem Acquired hammer toe of left foot (9308958050406766 ) Hammer toe of left foot (M20.42) Active confirmed Problem Polyneuropathy due to type 2 diabetes mellitus (651212180) 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.42) Active confirmed Problem Localized, primary osteoarthritis of the ankle and/or foot (470247216) Osteoarthritis of left ankle and foot (M19.072) Active confirmed Encounters Encounter Location Date Provider Diagnosis [facility] [address] [place] [address] 07/11/2024 Desire Ashford Plan Of Treatment Pending Test Test Name Order Date [id number] NAIL, 6 OR MORE 01/23/2015 [id number] Plate 01/23/2015 [id number] Plate Each Additional 01/2015 [id number] SKIN LESIONS, OVER 4 01/24/20 15 Insurance Providers Payer Name Payer Address Payer Phone Subscriber Number Group Number Insured Name Patient Relationship to Insured Coverage Start Date Coverage End Date [employer] [address] [place] [address] [id number] Naty Cervantes Self - patient is the insured Medical (General) History Medical History History ICD Code Chicken pox Measles Mumps Hypertension Thyroid disorder Diabetic Arthritis Back,Hip,and Knee pain CAD (Cholesterol) Gall bladder problems Vascular phlebitis (clots) Stroke Cataracts Hearing loss Surgical History Surgery Date(Month/Year) cholecystectomy hysterectomy 1994 back surgery 1991 gall bladder 1970 cataract surgery Hospitalization History Reason Date([place] [facility] [place]
--- OUTSIDE RECORDS SUMMARY | 2025-06-14 19:44 | XMS_ITS | Patient Health Record ---
Author Organization [facility] Address [address] [place] [address] Care Team Providers Care Mobile Qa Tester Name Role Phone Wilbur Velázquez M.D. Primary Care Provider Erna Obrien Jr Desean Unavailable Allergies Allergen (clinical drug ingredient) Drug/Non Drug Allergy documented on EMR Reaction Allergy Type Onset Date Status tramadol Tramadol HCl Unknown Drug Allergy Acti ve lisinopril Lisinopril Unknown Drug Allergy Activ e furosemide Furosemide Unknown Drug Allergy Activ e [...] Orally every 12 hrs/prn Active Vitamin D3 54169 UNIT 1 capsule Orally O nce a [...] Problem Status W/U Status Risk Notes Problem 551414751 Colon cancer screening (Z12.11) Active confirmed Problem 799478464 snf (current) use of non-steroidal anti-inflammato rex (NSAID) (Z79.1) Active confirmed Problem 423135375 snf (current) use of insulin (Z79.4) Active confirmed Plan Of Treatment Future Test Test Name Order Date COLONOSCOPY 06/09/2018 Insurance Providers Payer Name Payer Address Payer Phone Subscriber Number Group Number Insured Name Patient Relationship to Insured Coverage Start Date Coverage End Date [facility] [address] [place] [phone] [id number] ALFONSO CUNHA Self - patient is the insured Medical (General) History Medical History History ICD Code hypertension diabetes mellitus elevated cholesterol hypothyroidism arthritis Surgical History Surgery Date(Month/Year) hysterectomy back surgery cholecystectomy cataract-lens implants both eyes
[2025-06-14 19:49] LABS: Alanine Aminotransferase 20 U/L (0-31); Albumin Level 3.9 g/dL (3.5-5.0); Alkaline Phosphatase 157 U/L (39-117); Anion Gap 10 (12-20); Aspartate Amino Transferase 27 U/L (5-31); Blood Urea Nitrogen 16 mg/dL (9-16); Calcium 10.1 mg/dL (8.4-10.2); Carbon Dioxide 31 mmol/L (22-29); Chloride 104 mmol/L (96-108); Creatinine Clr Calc Pharmacy 49.9; Estimated Glomerular Filt Rate > 60; Potassium 3.9 mmol/L (3.3-5.1); Sodium 141 mmol/L (135-145); Total Protein 6.5 g/dL (6.5-8.0)
--- NOTE | 2025-06-14 20:17 | ED_ITS ---
HPI - Fall General Chief Complaint: Fall Stated Complaint: mechanical fall Time Seen by Provider: 06/14/25 20:15 Source: patient Mode of arrival: EMS Limitations: no limitations History of Present Illness ED Provider: Jordy KHALIL HPI Narrative: The patient is a 79-year-old female with history of previous CVA with left-sided weakness resulting in frequent falls, as well as hypertension, hyperlipidemia, neuropathy, diabetes, and hypothyroidism, presenting to the ED for evaluation after she suffered a mechanical fall in her living room. Patient reports she uses a cane at baseline due to chronic left lower extremity weakness. Patient reports she felt herself starting to fall and twisted to fall on her knees with her arms on the couch, denies fall to the ground or head strike, denies LOC however does take Eliquis for AFib. The patient reported to EMS she was experiencing neck pain, cervical collar applied prior to arrival in the ED. The patient in the ED is reporting pain in the left knee and the right hip, reports increased pain in the neck secondary to cervical collar. The patient denies any chest pain, shortness of breath, nausea, dizziness, focal neurological deficit or other prodrome prior to or following the fall. Patient denies any recent sick contacts or other trauma. Related Data Home Medications ?Medication ?Instructions ?Recorded ?Confirmed cyanocobalamin (vitamin B-12) 250 500 mcg PO DAILY 06/15/25 mcg tablet gabapentin 300 mg capsule 300 mg PO BEDTIME 04/03/25 0 06/15/25 levothyroxine 112 mcg tablet 112 mcg PO DAILY@0600 11/1606/15/25 sertraline 50 mg tablet 50 mg PO BEDTIME 04/03/25 atorvastatin 80 mg tablet 80 mg PO BEDTIME 05/24/25 liraglutide 0.6 mg/0.1 mL (18 mg/3 1.2 mg subcut DAILY 06/15/25 06/15/25 mL) subcutaneous pen injector Previous Rx's ?Medication ?Instructions ?Recorded pen needle, diabetic 32 gauge x #100 ea 11/05/23 1/ (Novofine 32) Stair lift #1 ea 01/19/24 blood-glucose meter (FreeStyle #1 ea 12/07/24 Lite Meter kit) blood sugar diagnostic #100 ea 01/30/25 metformin 1,000 mg tablet 1,000 mg PO BIDWM #180 tabs 01/30/25 ezetimibe 10 mg tablet 10 mg PO BEDTIME #30 tabs apixaban 5 mg tablet (Eliquis) 5 mg PO BID #60 tabs magnesium oxide 400 mg (241.3 mg 800 mg (2 x 400 mg (2 41.3 mg 05/26/25 magnesium) tablet magnesium)) PO BID 90 days # 360 tabs Allergies Allergy/AdvReac Type Severity Reaction Status Date / Time amoxicillin (Augmentin) Allergy Unknown hives Verified 06/14/25 19:17 clavulanic acid (Augmentin) Allergy Unknown hives Verified 06/14/25 19:17 furosemide Allergy Unknown unknown Verified 06/14/25 19:17 latex (LATEX) Allergy Unknown UNKNOWN Verified 06/14/25 19:17 lisinopril Allergy Unknown Unknown Verified 06/14/25 19:17 oxycodone (Percocet) Allergy Unknown Stomach Verified 06/14/25 19:17 upset tramadol Allergy Unknown Stomach Verified 06/14/25 19:17 uspet Review of Systems 2 Review of Systems: Yes all other systems are reviewed and are negative [facility] Past Medical History Medical History (Updated 06/17/25 @ 00:01 by Background Dylan) Paroxysmal atrial fibrillation Orthostatic hypotension Anemia Buttock wound Obesity (BMI 30-39.9) Neuropathy Acquired hypothyroidism Mixed hyperlipidemia Essential hypertension Atrial fibrillation Hypothyroidism Obesity Type 2 diabetes mellitus with morbid obesity Annual physical exam Vitamin D deficiency HLD (hyperlipidemia) T2DM (type 2 diabetes mellitus) Diabetes mellitus Hypertension Surgical History (Updated 06/03/25 @ 00:03 by Background Daemchad) H/O hysterectomy for benign disease History of vitrectomy History of surgery History of colonoscopy (~01/28/19) History of appendectomy History of cholecystectomy S/P JOSIE (total abdominal hysterectomy) Family History Family History Father Diabetes Mother CHF (congestive heart failure) CVD (cardiovascular disease) Brother HIV (human immunodeficiency virus infection) Social History Social History Household Members: Children Household Members Other:: alternating among 2 daughters and 1 son Housing: House Do you presently have visiting nurse or other home services: No Unable to assess alcohol history related to: Unknown Alcohol intake: current Patient Tobacco Use Status: Former Tobacco user Tobacco use type: Cigarette Years Smoked: 30, started at 10, about 15 cig a day, e-Cigarette/Vaping Use: Former Use Second Hand Smoke Exposure: Yes Advance Directives Date on File: 12/15/23 service: No Current occupational status: retired Current occupational exposures/hazards: No Cognitive needs: No Hearing needs: No Vision needs: No Physical Exam 2 Vital Signs: Vital Signs: Last Vital Signs Temp 98.1 F 06/16/25 17:41 Pulse 57 06/16/25 17:41 Resp 18 06/16/25 17:41 BP 179/75 H 06/16/25 17:41 Pulse Ox 97 06/16/25 17:41 O2 Del Method Room Air 06/16/25 17:41 O2 Flow Rate 2 06/16/25 06:00 BMI result Body Mass Index 29.5 CONSTITUTIONAL: The patient appears non-toxic, well nourished and in no acute distress. Vital signs as documented. HEAD: Atraumatic, normocephalic. EYES: EOMs grossly intact, pupils equal, conjunctiva clear, no exudate. ENT: Nares patent, no discharge. Airway patent, no audible stridor, visible mucosa is pink and moist without noted lesions. NECK: Trachea is midline, no obvious masses or gross abnormalities. CHEST: Symmetric movement, normal appearance. LUNGS: LS present and CTAB, no w/r/r. Non-labored work of breathing. CARDIAC: Regular Rhythm, S1/S2 appreciated, no murmurs, rubs or gallops. ABDOMEN: Abdomen soft and non-tender x4 quadrants, no palpable masses or organomegaly. : Deferred. EXTREMITIES: There is tenderness to palpation and manipulation of the left knee, no tenderness to palpation of the left or right hip. Bilateral distal CSM intact, 2+ DP/PT pulses, no sensory deficits. Normal tone, reports painful range of motion of the left knee, moves all other extremities spontaneously without reported pain. No obvious acute injury or deformity noted. No open injury. NEURO: Alert and oriented x3, CN II-XII appear grossly intact. Cerebellar Functioning grossly intact. No obvious sensory or motor deficits. Speech clear and appropriate. PSYCH: Agitated affect, but otherwise appropriate eye contact, fluid speech, with appropriate response to questioning. No reported suicidality or homicidality. SKIN: Warm, dry, color appropriate, normal turgor. No rashes noted. Course Course Course Narrative: 06/15/2025 0810 Jhoana Dill PA-C ---> Observation continues. Case management continues to follow. Reevaluation(s) Reevaluation #1: Time: 12:05 Date: 06/16/25 Provider: Katie Atwood CNP Patient in physician observation for case management needs, had physical therapy evaluation and plan for discharge to [facility] for short-term rehab today with planned physician observation end time of 14:00. No acute events reported overnight.? No current issues or complaints. VS stable. Medications Administered Discontinued Medications Generic Name Dose Route Start Last Admin Trade Name Freq PRN Reason Stop Dose Admin Acetaminophen 975 mg 06/14/25 21:31 06/14/25 21:54 Acetaminophen 325 Mg Tablet PO 06/14/25 21:32 975 mg ONCE ONE Administration Acetaminophen 975 mg 06/15/25 12:37 06/15/25 12:40 Acetaminophen 325 Mg Tablet PO 06/15/25 12:38 975 mg ONCE ONE Administration Apixaban 5 mg 06/15/25 21:00 06/16/25 08:35 Apixaban 5 Mg Tablet PO 5 mg BID CONNER Administration Atorvastatin Calcium 80 mg 06/15/25 21:00 06/15/25 21:55 Atorvastatin Calcium 80 Mg Tablet PO 80 mg BEDTIME CONNER Administration Cyanocobalamin 500 mcg 06/16/25 09:00 06/16/25 08:56 Cyanocobalamin (Vitamin B-12) 500 Mcg Tablet PO 500 mcg DAILY CONNER Administration Ezetimibe 10 mg 06/15/25 21:00 06/15/25 21:56 Ezetimibe 10 Mg Tablet PO 10 mg BEDTIME CONNER Administration Gabapentin 300 mg 06/15/25 21:00 06/15/25 21:55 Gabapentin 300 Mg Capsule PO 300 mg BEDTIME CONNER Administration Insulin Human Lispro 0 unit 06/15/25 16:30 06/16/25 16:44 Insulin Lispro 100 Unit/Ml 3 Ml Vial SUBCUT Not Given [facility] Protocol Levothyroxine Sodium 112 mcg 06/16/25 06:00 06/16/25 07:45 Levothyroxine Sodium 112 Mcg Tablet PO 112 mcg DAILY@0600 CONNER Administration Magnesium Oxide 400 mg 06/14/25 21:31 06/14/25 21:55 Magnesium Oxide 400 Mg Tablet PO 06/14/25 21:32 400 mg ONCE ONE Administration Magnesium Oxide 800 mg 06/15/25 21:00 06/16/25 08:56 Magnesium Oxide 400 Mg Tablet PO 800 mg BID CONNER Administration Metformin HCl 1,000 mg 06/15/25 17:00 06/16/25 17:01 Metformin Hcl 1,000 Mg Tablet PO 1,000 mg BIDWM CONNER Administration Sertraline HCl 50 mg 06/15/25 21:00 06/15/25 21:55 Sertraline Hcl 50 Mg Tablet PO 50 mg BEDTIME CONNER Administration Medical Decision Making Medical Decision Making MDM Narrative: 9:24 PM 06/14/2025 (Ingrid KHALIL): The patient is a 79-year-old female presenting to the ED for evaluation after a mechanical fall at home with subsequent left knee and right hip pain, patient also reported pain in her neck to EMS, cervical collar applied, patient reports pain has worsened since cervical collar applied. The patient has been sent for CT head and neck as well as x-ray of the hip, and knee. The patient's plain films are negative for acute fracture, CT imaging is pending. The patient's laboratory evaluation shows no leukocytosis or significant anemia, no STEFAN. The patient's magnesium is slightly low at 1.5, per family's report patient has a history of hypomagnesemia with previous falls, we will replete orally. We will treat pain with Tylenol per patient request and will follow up CT imaging. 12:22 AM 06/15/2025 (Ingrid KHALIL): Patient's CTs came back negative for acute injury, urine is negative for infection, thyroid is unremarkable. The patient states she does not feel she can safely walk at this time, patient will be held overnight for case management and PT consultation. Admission/Observation Consideration of admission/observation: Escalation of care including admission/observation considered Lab Data [facility] Lab Attestation statement: I reviewed the patient's lab results. 06/14/25 19:25 06/14/25 19:25 Labs: Lab Results 06/14/25 06/14/25 06/15/25 Range/Units 19:25 23:10 10:04 WBC 7.0 (4.8-10.8) X10*3/uL RBC 3.91 L (4.20-5.50) X10*6/uL Hgb 10.1 L (12.0-16.0) g/dl Hct 31.5 L (37.0-47.0) % MCV 80.6 (80.0-98.0) fL MCH 25.8 L (27.0-33.0) pg MCHC 32.1 (31.0-35.0) g/dl RDW 16.5 H (11.0-16.0) % Plt Count 247 (160-400) X10*3/uL MPV 10.6 (9.4-12.3) fL Immature Gran % (Auto) 0.3 (0.0-0.4) % Neut % (Auto) 60.0 (45-73) % Lymph % (Auto) 29.6 (20-40) % [place] % (Auto) 7.9 (2-11) % Eos % (Auto) 1.6 (0-4) % Baso % (Auto) 0.6 (0-2) % Lymph # (Auto) 2.1 (1.2-4.9) X10*3/uL [place] # (Auto) 0.6 (0.1-1.2) X10*3/uL Eos # (Auto) 0.1 (0.0-0.4) X10*3/uL Baso # (Auto) 0.0 (0.0-0.2) X10*3/uL Abs Immat Gran (auto) 0.02 (0.00-0.03) X10*3/uL Absolute Neuts (auto) 4.2 (2.0-8.3) x10*3/uL Absolute Nucleated RBC 0.000 (0.0-0.012) X10*3/uL Nucleated RBC % (auto) 0.0 (0.0-0.2) /100WBC Sodium 141 (135-145) mmol/L Potassium 3.9 (3.3-5.1) mmol/L Chloride 104 (96-108) mmol/L Carbon Dioxide 31 H (22-29) mmol/L Anion Gap 10 L (12-20) BUN 16 (9-16) mg/dL Creatinine 0.79 (0.5-1.4) mg/dL Estim Creat Clear Calc 49.9 Estimated GFR > 60 POC Glucose (60-115) mg/dL Random Glucose 103 (60-115) mg/dL Calcium 10.1 (8.4-10.2) mg/dL Magnesium 1.5 L (1.6-2.6) mg/dL Total Bilirubin 0.3 (0.0-1.0) mg/dL AST 27 (5-31) U/L ALT 20 (0-31) U/L Alkaline Phosphatase 157 H (39-117) U/L Total Protein 6.5 (6.5-8.0) g/dL Albumin 3.9 (3.5-5.0) g/dL TSH 0.03 L (0.32-4.0) uIU/mL Free T4 1.43 (0.71-1.85) ng/dL Urine Color Yellow Urine Appearance Clear Urine pH >= 9.0 (5.0-9.0) Ur Specific [place] <= 1.005 (1.005-1.025) Urine Protein Negative (Neg-Trace) mg/dL Urine Glucose (UA) Negative (Negative) mg/dL Urine Ketones Negative (Negative) mg/dL Urine Blood Negative (Negative) Urine Nitrite Negative (Negative) Ur Leukocyte Esterase Small (1+) H (Negative) Urine RBC 0-2 (0-2) /HPF Urine WBC 0-5 (0-5) /HPF Ur Squamous Epith Cells 0-2 (0-2) /HPF Urine Bacteria None Seen (None Seen) Hyaline Casts 0-2 (0-2) /LPF Influenza Type A (PCR) NEGATIVE (Negative) Influenza Type B (PCR) NEGATIVE (Negative) RSV RNA Qual (PCR) NEGATIVE (Negative) SARS-CoV-2 RNA (RT-PCR) NEGATIVE (Negative) 06/15/25 06/15/25 06/15/25 Range/Units 12:14 16:43 22:59 WBC (4.8-10.8) X10*3/uL RBC (4.20-5.50) X10*6/uL Hgb (12.0-16.0) g/dl Hct (37.0-47.0) % MCV (80.0-98.0) fL MCH (27.0-33.0) pg MCHC (31.0-35.0) g/dl RDW (11.0-16.0) % Plt Count (160-400) X10*3/uL MPV (9.4-12.3) fL Immature Gran % (Auto) (0.0-0.4) % Neut % (Auto) (45-73) % Lymph % (Auto) (20-40) % [place] % (Auto) (2-11) % Eos % (Auto) (0-4) % Baso % (Auto) (0-2) % Lymph # (Auto) (1.2-4.9) X10*3/uL [place] # (Auto) (0.1-1.2) X10*3/uL Eos # (Auto) (0.0-0.4) X10*3/uL Baso # (Auto) (0.0-0.2) X10*3/uL Abs Immat Gran (auto) (0.00-0.03) X10*3/uL Absolute Neuts (auto) (2.0-8.3) x10*3/uL Absolute Nucleated RBC (0.0-0.012) X10*3/uL Nucleated RBC % (auto) (0.0-0.2) /100WBC Sodium (135-145) mmol/L Potassium (3.3-5.1) mmol/L Chloride (96-108) mmol/L Carbon Dioxide (22-29) mmol/L Anion Gap (12-20) BUN (9-16) mg/dL Creatinine (0.5-1.4) mg/dL Estim Creat Clear Calc Estimated GFR POC Glucose 170 H 100 156 H (60-115) mg/dL Random Glucose (60-115) mg/dL Calcium (8.4-10.2) mg/dL Magnesium (1.6-2.6) mg/dL Total Bilirubin (0.0-1.0) mg/dL AST (5-31) U/L ALT (0-31) U/L Alkaline Phosphatase (39-117) U/L Total Protein (6.5-8.0) g/dL Albumin (3.5-5.0) g/dL TSH (0.32-4.0) uIU/mL Free T4 (0.71-1.85) ng/dL Urine Color Urine Appearance Urine pH (5.0-9.0) Ur Specific [place] (1.005-1.025) Urine Protein (Neg-Trace) mg/dL Urine Glucose (UA) (Negative) mg/dL Urine Ketones (Negative) mg/dL Urine Blood (Negative) Urine Nitrite (Negative) Ur Leukocyte Esterase (Negative) Urine RBC (0-2) /HPF Urine WBC (0-5) /HPF Ur Squamous Epith Cells (0-2) /HPF Urine Bacteria (None Seen) Hyaline Casts (0-2) /LPF Influenza Type A (PCR) (Negative) Influenza Type B (PCR) (Negative) RSV RNA Qual (PCR) (Negative) SARS-CoV-2 RNA (RT-PCR) (Negative) 06/16/25 06/16/25 06/16/25 Range/Units 07:37 12:33 16:39 WBC (4.8-10.8) X10*3/uL RBC (4.20-5.50) X10*6/uL Hgb (12.0-16.0) g/dl Hct (37.0-47.0) % MCV (80.0-98.0) fL MCH (27.0-33.0) pg MCHC (31.0-35.0) g/dl RDW (11.0-16.0) % Plt Count (160-400) X10*3/uL MPV (9.4-12.3) fL Immature Gran % (Auto) (0.0-0.4) % Neut % (Auto) (45-73) % Lymph % (Auto) (20-40) % [place] % (Auto) (2-11) % Eos % (Auto) (0-4) % Baso % (Auto) (0-2) % Lymph # (Auto) (1.2-4.9) X10*3/uL [place] # (Auto) (0.1-1.2) X10*3/uL Eos # (Auto) (0.0-0.4) X10*3/uL Baso # (Auto) (0.0-0.2) X10*3/uL Abs Immat Gran (auto) (0.00-0.03) X10*3/uL Absolute Neuts (auto) (2.0-8.3) x10*3/uL Absolute Nucleated RBC (0.0-0.012) X10*3/uL Nucleated RBC % (auto) (0.0-0.2) /100WBC Sodium (135-145) mmol/L Potassium (3.3-5.1) mmol/L Chloride (96-108) mmol/L Carbon Dioxide (22-29) mmol/L Anion Gap (12-20) BUN (9-16) mg/dL Creatinine (0.5-1.4) mg/dL Estim Creat Clear Calc Estimated GFR POC Glucose 97 84 80 (60-115) mg/dL Random Glucose (60-115) mg/dL Calcium (8.4-10.2) mg/dL Magnesium (1.6-2.6) mg/dL Total Bilirubin (0.0-1.0) mg/dL AST (5-31) U/L ALT (0-31) U/L Alkaline Phosphatase (39-117) U/L Total Protein (6.5-8.0) g/dL Albumin (3.5-5.0) g/dL TSH (0.32-4.0) uIU/mL Free T4 (0.71-1.85) ng/dL Urine Color Urine Appearance Urine pH (5.0-9.0) Ur Specific [place] (1.005-1.025) Urine Protein (Neg-Trace) mg/dL Urine Glucose (UA) (Negative) mg/dL Urine Ketones (Negative) mg/dL Urine Blood (Negative) Urine Nitrite (Negative) Ur Leukocyte Esterase (Negative) Urine RBC (0-2) /HPF Urine WBC (0-5) /HPF Ur Squamous Epith Cells (0-2) /HPF Urine Bacteria (None Seen) Hyaline Casts (0-2) /LPF Influenza Type A (PCR) (Negative) Influenza Type B (PCR) (Negative) RSV RNA Qual (PCR) (Negative) SARS-CoV-2 RNA (RT-PCR) (Negative) Independent Interpretation I performed an independent interpretation of an: EKG (EKG shows sinus rhythm with rate of 65 with left axis deviation, no evidence of acute ischemia, no ST elevation, no ectopy. QTC 432. Compared to previous on 05/24/2025 there are no acute morphology changes.) Radiology Impression Discussion of test interpretation with radiology: I have reviewed the radiologist's reading. Radiologist Impression: 2 view left knee Comparison: CR/SR - XR KNEE 3 VIEWS LEFT - 05/24/25 11:44 EDT Findings: Osteopenia. No acute fracture. Advanced tricompartmental osteoarthritis with joint space narrowing pronounced in the medial and patellofemoral compartments. Chondrocalcinosis. No joint effusion. No radiopaque foreign body. Vascular calcifications. IMPRESSION: Chronic changes without acute fracture. This document has been electronically signed by: Segundo Issa MD on 06/14/2025 20:48:00 3 view, pelvis and right hip Comparison: CT/SR - CT ABDOMEN PELVIS WO IV CON - 04/02/25 15:35 EDT CR/SR - XR HIP LT W PEL 1V - 12/15/24 14:24 EST, CR/SR - XR HIP RT W PEL1V - 10/10/2023 11:41 AM EST Findings: No acute fracture or malalignment. Osteopenia with similar heterogeneous sclerosis throughout, nonspecific. Degenerative changes throughout the SI joints, pubic symphysis and hips bilaterally. The soft tissues are unremarkable. IMPRESSION: Chronic changes without acute findings. This document has been electronically signed by: Segundo Issa MD on 06/14/2025 21:05:42 Discharge Plan Discharge Clinical Impression: Acute hip pain, Contusion of knee, right Patient Disposition: [facility] Transfer Details: [facility] Prescriptions: No Action (DME) pen needle, diabetic [Novofine 32] 32 gauge x 1/4 needle See Rx Instructions .Route Qty: 100 0RF Rx Instructions: As directed up to three times per day (DME) Stair lift See Rx Instructions .Route .MEDSUPPLY Qty: 1 0RF Rx Instructions: As directed (DME) blood sugar diagnostic Strip See Rx Instructions .ROUTE .MEDSUPPLY Qty: 100 11RF Rx Instructions: FREESTYLE LITE TEST STRIPS TO CHECK THREE TIMES A DAY metformin 1,000 mg tablet 1,000 mg PO BIDWM Qty: 180 3RF ezetimibe 10 mg tablet 10 mg PO BEDTIME Qty: 30 1RF Eliquis 5 mg tablet 5 mg PO BID Qty: 60 4RF cyanocobalamin (vitamin B-12) 250 mcg Tablet 500 mcg PO DAILY sertraline 50 mg tablet 50 mg PO BEDTIME gabapentin 300 mg capsule 300 mg PO BEDTIME levothyroxine 112 mcg tablet 112 mcg PO DAILY@0600 atorvastatin 80 mg tablet 80 mg PO BEDTIME magnesium oxide 400 mg (241.3 mg magnesium) Tablet 800 mg PO BID 90 Days Qty: 360 0RF liraglutide 0.6 mg/0.1 mL (18 mg/3 mL) pen injector 1.2 mg subcut DAILY (DME) blood-glucose meter [FreeStyle Lite Meter] Kit See Rx Instructions .ROUTE .MEDSUPPLY Qty: 1 0RF Rx Instructions: As directed Referrals: Rama Servin [Outside] Interventions: ED Discharge Assessment Last Done: 06/16/25 17:41 Discharge Date/Time: 06/16/25 17:42 Print Language: Estonian
[2025-06-14 20:24] LABS: Magnesium 1.5 mg/dL (1.6-2.6)
[2025-06-14 21:08] VITALS: BP 155/67; PULSE 65; RESP 18; TEMP 36.7; O2SAT 97
--- NOTE | 2025-06-14 22:04 | PC.NURSE ---
Pt ripped off her c collar while RN was at the bedside. Provider made aware.
[2025-06-14 22:58] LABS: Free T4 (Free Thyroxine) 1.43 ng/dL (0.71-1.85)
[2025-06-14 23:17] LABS: Appearance Urine Clear; Glucose Urine UA Negative (Negative); PH >= 9.0 (5.0-9.0); Specific Gravity - Urine <= 1.005 (1.005-1.025); UMIC TRIGGER UACC YES
[2025-06-14 23:24] LABS: UACC Culture Trigger YES
--- NOTE | 2025-06-15 03:43 | PC.NURSE ---
Pt states wearing 2L of O2 at bedtime for nocturnal hypoxia. Current O2 sat 95 on RA. 2L O2 applied for pt comfort. Pt tolerating well.
[2025-06-15 05:31] VITALS: BP 125/53; PULSE 56; RESP 16; TEMP 36.9; O2SAT 99
--- NOTE | 2025-06-15 10:33 | MHC.CM.ED ---
Addendum entered by Lona Acevedo 06/15/25 15:10: [facility] is able to offer a bed tomorrow and is in the process of obtaining ins auth. Anticipate d/c tomorrow 06/16. Patient, granddaughter Loly Morley RN and Jhoana KHALIL aware. Original Note: Received case management consult overnight. Patient came to the ER after a mechanical fall. Work up essentially negative. Physical therapy eval completed. Short term rehab is recommended. Met with patient in regards to discharge planning. Patient currently lives with Letty in [place]. Will be moving in with daughter Beata in [place] in June. PCP verified. Copy of HCP verified to be on file. Patient has been to [facility] and [facility]. Does not want to return to either of those facilities. Spoke with patient's granddaughter, Milli via telephone at [phone] at patient's request. Milli states a [employer]PERATIONS [employer] MA[employer]TE[employer]CE [employer] will be starting in the beginning of June. Milli feels STR is necessary at this time for patient's safety. Patient has been to [facility] in the past and enjoyed it. Referral will be made to [facility]. Continue to monitor for d/c needs.
--- NOTE | 2025-06-15 10:48 | PC.NURSE ---
Addendum entered by Shauna Biswas RN 06/15/25 10:50: The patient is a 79-year-old female with history of previous CVA with left-sided weakness resulting in frequent falls, as well as hypertension, hyperlipidemia, neuropathy, diabetes, and hypothyroidism, presenting to the ED for evaluation after she suffered a mechanical fall in her living room. Patient reports she uses a cane at baseline due to chronic left lower extremity weakness. Patient reports she felt herself starting to fall and twisted to fall on her knees with her arms on the couch, denies fall to the ground or head strike, denies LOC however does take Eliquis for AFib. c/o back and right knee pain. Alert and oriented. Lungs clear bilat. Respirations even and non-labored. Abdomen soft, non-tender with positive bowel sounds. Purewick patent and draining jennyfer urine. Positive pedal pulses with no edema. Original Note: Medical History Paroxysmal atrial fibrillation Orthostatic hypotension Anemia Buttock wound Obesity (BMI 30-39.9) Neuropathy Acquired hypothyroidism Mixed hyperlipidemia Essential hypertension Atrial fibrillation Hypothyroidism Obesity Type 2 diabetes mellitus with morbid obesity Annual physical exam Vitamin D deficiency HLD (hyperlipidemia) T2DM (type 2 diabetes mellitus) Diabetes mellitus Hypertension
[2025-06-15 10:52] LABS: Resp Syncy Virus RNA Qual PCR NEGATIVE (Negative); SARS COV2 PCR INHOUSE NEGATIVE (Negative)
[2025-06-15 11:48] VITALS: BP 141/54; PULSE 54; RESP 18; TEMP 36.7; O2SAT 99
--- NOTE | 2025-06-15 11:49 | PC.NURSE ---
Patient transitioned from a stretcher to a bed. Report given to Loly NUGENT
[2025-06-15 12:17] LABS: Glucose, Whole Blood 170 mg/dL (60-115)
--- NOTE | 2025-06-15 13:32 | PC.NURSE ---
Pt medicated per orders for pain with + relief, per pt
[2025-06-15 14:00] VITALS: BP 137/61; PULSE 52; RESP 16; TEMP 36.6; O2SAT 98
--- NOTE | 2025-06-15 14:18 | PHA.MEDREC ---
Pharmacy Consult ? Medication Reconciliation Pharmacy has reviewed the medication reconciliation done by nursing and also spoke to patient to confirm med list. Patient confirmed she's still taking ezetimibe. She confirms she takes eliquis 5 mg bid. She no longer takes omeprazole 20 mg ( for acid reflux ) per md's order.
[2025-06-15 16:55] LABS: Glucose, Whole Blood 100 mg/dL (60-115)
--- NOTE | 2025-06-15 20:42 | MHC.CM.ED ---
[facility] obtained authorization. BLS booked with [facility] for 06/16 at 2 pm per facility request. Primary RN, patient and provider aware.
[2025-06-15 20:50] VITALS: BP 129/53; PULSE 60; RESP 16; TEMP 36.7; O2SAT 99
[2025-06-15 23:03] LABS: Glucose, Whole Blood 156 mg/dL (60-115)
[2025-06-16 06:00] VITALS: BP 156/68; PULSE 53; RESP 18; TEMP 36.3; O2SAT 100
--- NOTE | 2025-06-16 07:48 | PC.NURSE ---
Pt A&O X4 VSS NAD No complaints, eating bkfst.
[2025-06-16 07:57] LABS: Glucose, Whole Blood 97 mg/dL (60-115)
--- NOTE | 2025-06-16 08:38 | PC.NURSE ---
Pt A&O X4 VSS NAD no complaints. Pt ate bkfts and yesika well.
--- NOTE | 2025-06-16 15:13 | PC.NURSE ---
Pt has been A&O through shift VSS NAD. Jered PO well, ambulated to and from BR with aide. Jered well. Awaiting transfer to facility.
[2025-06-16 17:30] LABS: Glucose, Whole Blood 84 mg/dL (60-115)
[2025-06-16 17:31] LABS: Glucose, Whole Blood 80 mg/dL (60-115)
[2025-06-16 17:41] VITALS: BP 179/75; PULSE 57; RESP 18; TEMP 36.7; O2SAT 97
== END 2025-06-16 17:42 | disposition skilled nursing facility (03) ==
PROVIDERS: Physician Assistant; Physician Assistant Medical; Emergency Provider Emergency Medicine Emergency Medical Services; PCP Internal Medicine
DX: S80.01XA Contusion of right knee, initial encounter (principal); R51.9 Headache, unspecified; M54.2 Cervicalgia; R94.31 Abnormal electrocardiogram [ECG] [EKG]; M25.551 Pain in right hip; E11.9 Type 2 diabetes mellitus without complications; X58.XXXA Exposure to other specified factors, initial encounter; Y93.9 Activity, unspecified; Y92.9 Unspecified place or not applicable; Y99.8 Other external cause status; Z79.84 Long term (current) use of oral hypoglycemic drugs; Z86.73 Personal history of transient ischemic attack (TIA), and cerebral infarction without residual deficits; Z91.81 History of falling; Z79.01 Long term (current) use of anticoagulants; Z79.899 Other long term (current) drug therapy; Z03.818 Encounter for observation for suspected exposure to other biological agents ruled out
CPT/HCPCS: 36415; 70450; 72125; 73502; 73560; 80053; 81001; 82947; 83735; 84439; 84443; 85025; 87086; 87637; 93005; 97162; 99285

== ENCOUNTER → 2025-06-14 19:34 | Outpatient (BNV) | payer MEDICARE, SELFPAY | PROVIDERS: Emergency Provider Emergency Medicine Emergency Medical Services; PCP Internal Medicine; Visit Provider Radiology Diagnostic Radiology | DX: M16.11 Unilateral primary osteoarthritis, right hip (principal); M17.12 Unilateral primary osteoarthritis, left knee | CPT/HCPCS: 73502; 73560 ==

== ENCOUNTER → 2025-06-14 19:41 | Outpatient (BNV) | payer MEDICARE, SELFPAY | PROVIDERS: Emergency Provider Emergency Medicine Emergency Medical Services; PCP Internal Medicine; Visit Provider Internal Medicine Cardiovascular Disease | DX: R94.31 Abnormal electrocardiogram [ECG] [EKG] (principal); W19.XXXA Unspecified fall, initial encounter | CPT/HCPCS: 93010 ==

== ENCOUNTER 2025-07-03 14:51 | Emergency (ER) | payer MEDICARE, SELFPAY ==
--- NOTE | ~2025-07-03 | CT_ITS ---
CLINICAL HISTORY: pain, injury, fall CT of the head without contrast. Comparison 06/14/2025. Findings: There is diffuse atrophy with white matter changes. There is encephalomalacia in the distribution of the right middle cerebral artery suspicious for an old infarct. No acute hemorrhage or definite acute infarct is seen. There is no hydrocephalus or mass effect. Impression: No acute hemorrhage. This document has been electronically signed by: Du Luz MD on 07/03/2025 17:47:03
--- NOTE | ~2025-07-03 | XR_ITS ---
EXAMINATION: Lumbar spine and right hip. CLINICAL INDICATION: Injury. Pain. Graph comparison: Left hip and left knee 12/15/2024. TECHNIQUE: Right hip and AP pelvis 3 views. Left knee 2 views. Right hip and AP pelvis: There is minimal loss of bilateral hip joints without fracture or bony abnormality of the pelvis. AP and frog-leg views right hip: There is no visible fracture or dislocation. The soft tissues are normal. Left knee: There is severe loss of tricompartment joint space with periarticular spurring. No loose bodies, fracture or dislocation seen. There is no joint effusion seen. Extensive vascular calcifications are seen in the left knee. XR/XR hip RT w PEL1V IMPRESSION: No acute fracture or dislocation left knee. Moderate to advanced degenerative changes. No acute fracture or dislocation right hip or AP pelvis. Electronically signed by: Serge Everett MD 07/03/2025 04:45 PM EDT
--- NOTE | ~2025-07-03 | XR_ITS ---
EXAMINATION: Lumbar spine and right hip. CLINICAL INDICATION: Injury. Pain. Graph comparison: Left hip and left knee 12/15/2024. TECHNIQUE: Right hip and AP pelvis 3 views. Left knee 2 views. Right hip and AP pelvis: There is minimal loss of bilateral hip joints without fracture or bony abnormality of the pelvis. AP and frog-leg views right hip: There is no visible fracture or dislocation. The soft tissues are normal. Left knee: There is severe loss of tricompartment joint space with periarticular spurring. No loose bodies, fracture or dislocation seen. There is no joint effusion seen. Extensive vascular calcifications are seen in the left knee. XR/XR lumbar spine 2-3V IMPRESSION: No acute fracture or dislocation left knee. Moderate to advanced degenerative changes. No acute fracture or dislocation right hip or AP pelvis. Electronically signed by: Serge Everett MD 07/03/2025 04:45 PM EDT
--- NOTE | ~2025-07-03 | CT_ITS ---
CLINICAL HISTORY: pain, injury, fall CT of the cervical spine without contrast. Comparison 06/14/2025. Findings: No acute fractures are seen. There are advanced degenerative changes. Multiple facet joints are fused. Minimal malalignment is likely degenerative in nature. There are changes of emphysema. There is mild nonspecific dilatation of the proximal esophagus. Impression: No acute fractures. This document has been electronically signed by: Du Luz MD on 07/03/2025 17:45:38
[2025-07-03 15:04] VITALS: BP 139/53; BP 144/84; PULSE 69; PULSE 72; RESP 16; TEMP 37.1; O2SAT 96; BMI 26.3
--- NOTE | 2025-07-03 15:36 | ED_ITS ---
HPI - General Adult General Chief complaint: Fall Stated complaint: FALL THURSDAY,+HS,FROM SNF PER EMS Time Seen by Provider: 07/03/25 15:35 Source: patient, family (patient's daughter) and EMS Mode of arrival: EMS Limitations: no limitations History of Present Illness ED Provider: Jhoana Dill PA-C HPI narrative: Patient is a 79 year old assigned female at with a history of previous CVA with left-sided deficits, paroxysmal AFib on Eliquis, type 2 diabetes, hypertension, hyperlipidemia, and hypothyroidism presenting to the emergency department today after a mechanical fall on 07/01/2025. Patient states that 2 days ago she slipped out of her recliner and hit her head on the ground. Patient denies any loss of consciousness with the incident. Patient states that she has low back / coccyx pain. Patient denies any dizziness, lightheadedness, abdominal pain, nausea, vomiting, fever, chills, blurry vision, double vision, loss of vision, chest pain, difficulty breathing, shortness of breath, back pain, night sweats, pain with urination, increased urinary frequency, increased urinary urgency, blood in his urine or stool, syncope or a near syncopal episode, bowel incontinence, bladder incontinence, or any other complaints at this time. Relieving factors: none Exacerbating factors: none Associated symptoms: denies other symptoms Treatments prior to arrival: none Related Data Home Medications ?Medication ?Instructions ?Recorded ?Confirmed cyanocobalamin (vitamin B-12) 250 500 mcg PO DAILY 06/15/25 mcg tablet gabapentin 300 mg capsule 300 mg PO BEDTIME 04/03/25 0 06/15/25 levothyroxine 112 mcg tablet 112 mcg PO DAILY@0600 11/1606/15/25 atorvastatin 80 mg tablet 80 mg PO BEDTIME 05/24/25 liraglutide 0.6 mg/0.1 mL (18 mg/3 1.2 mg subcut DAILY 06/15/25 06/15/25 mL) subcutaneous pen injector Previous Rx's ?Medication ?Instructions ?Recorded pen needle, diabetic 32 gauge x #100 ea 11/05/23 1/4 (Novofine 32) Stair lift #1 ea 01/19/24 blood-glucose meter (FreeStyle #1 ea 12/07/24 Lite Meter kit) blood sugar diagnostic #100 ea 01/30/25 metformin 1,000 mg tablet 1,000 mg PO BIDWM #180 tabs 01/30/25 ezetimibe 10 mg tablet 10 mg PO BEDTIME #30 tabs apixaban 5 mg tablet (Eliquis) 5 mg PO BID #60 tabs magnesium oxide 400 mg (241.3 mg 800 mg (2 x 400 mg (2 41.3 mg 05/26/25 magnesium) tablet magnesium)) PO BID 90 days # 360 tabs sertraline 50 mg tablet 50 mg PO BEDTIME 90 days #90 tabs 06/27/25 Allergies Allergy/AdvReac Type Severity Reaction Status Date / Time amoxicillin (Augmentin) Allergy Unknown hives Verified 07/03/25 15:10 clavulanic acid (Augmentin) Allergy Unknown hives Verified 07/03/25 15:10 furosemide Allergy Unknown unknown Verified 07/03/25 15:10 latex (LATEX) Allergy Unknown UNKNOWN Verified 07/03/25 15:10 lisinopril Allergy Unknown Unknown Verified 07/03/25 15:10 oxycodone (Percocet) Allergy Unknown Stomach Verified 07/03/25 15:10 upset tramadol Allergy Unknown Stomach Verified 07/03/25 15:10 uspet Review of Systems Constitutional: Constitutional: Reports no additional constitutional complaints, Denies chills, Denies fever(s) and Denies night sweats Eyes: Eyes: Reports no additional eye complaints, Denies blurry vision, Denies change in vision, Denies diplopia, Denies eye discharge, Denies loss of vision and Denies eye pain ENT: Denies dizziness Cardiovascular: Cardiovascular: Reports no additional cardiovascular complaints, Denies chest pain, Denies lightheadedness, Denies Loss of Consciousness and Denies dyspnea Respiratory: Respiratory: Reports no additional respiratory complaints and Denies dyspnea Gastrointestinal: Gastrointestinal: Reports no additional gastrointestinal complaints, Denies abdominal pain, Denies melena, Denies hematochezia, Denies change in bowel habits and Denies change in stool character Genitourinary: Genitourinary: Denies hematuria, Denies urinary frequency, Denies dysuria, Denies urinary incontinence, Denies urinary hesitancy and Denies urinary urgency Musculoskeletal: Musculoskeletal: Reports no additional musculoskeletal complaints, Denies numbness and Denies tingling Comments: low back pain Neurologic: Denies dizziness, Denies loss of vision, Denies numbness and Denies tingling Psychiatric: Psychiatric: Reports no additional psychiatric complaints Endocrine: Endocrine: Reports no additional endocrine complaints Hematologic/Lymphatic: Hematologic/Lymphatic: Reports no additional hematologic/lymphatic complaints Allergic/Immunologic: Allergic/Immunologic: Reports no additional allergic/immunologic complaints PMFSH Past Medical History Attestation statement: The following information was validated with the patient. Source: old records reviewed and nursing notes reviewed Medical History Paroxysmal atrial fibrillation Orthostatic hypotension Anemia Buttock wound Obesity (BMI 30-39.9) Neuropathy Acquired hypothyroidism Mixed hyperlipidemia Essential hypertension Atrial fibrillation Hypothyroidism Obesity Type 2 diabetes mellitus with morbid obesity Annual physical exam Vitamin D deficiency HLD (hyperlipidemia) T2DM (type 2 diabetes mellitus) Diabetes mellitus Hypertension Surgical History H/O hysterectomy for benign disease History of vitrectomy History of surgery History of colonoscopy (~01/28/19) History of appendectomy History of cholecystectomy S/P JOSIE (total abdominal hysterectomy) Family History Family History Father Diabetes Mother CHF (congestive heart failure) CVD (cardiovascular disease) Brother HIV (human immunodeficiency virus infection) Social History Social History Household Members: Children Household Members Other:: alternating among 2 daughters and 1 son Housing: House Do you presently have visiting nurse or other home services: No Unable to assess alcohol history related to: Unknown Alcohol intake: current Patient Tobacco Use Status: Former Tobacco user Tobacco use type: Cigarette Years Smoked: 30, started at 10, about 15 cig a day, Smoked in Last 30 Days: No e-Cigarette/Vaping Use: Former Use Second Hand Smoke Exposure: Yes Use of substances other than those prescribed or required for medical reasons: No Advance Directives: Yes Advance Directives on File: Yes Advance Directives Date on File: 12/15/23 service: No Current occupational status: retired Current occupational exposures/hazards: No Cognitive needs: No Hearing needs: No Vision needs: No Physical Exam ED Vital Signs: Vital Signs - 24 hr 07/03/25 15:04 Temperature 98.8 F Pulse Rate 69 Respiratory Rate 16 Blood Pressure 139/53 L Pulse Oximetry 96 Oxygen Delivery Method Room Air BMI result Body Mass Index 26.3 Const General: cooperative, no acute distress, alert and awake Nutritional Appearance: well nourished Orientation/consciousness: patient oriented x3 HENMT Other: small scalp hematoma - posterior Ears: hearing grossly normal bilaterally and external ears normal General nose exam: Normal external nose present, no nasal discharge noted and no epistaxis Face and sinus: Yes normal facial exam, No abrasion and No laceration Mouth: Normal oral and palatal mucosa present, no drooling and no muffled voice Eyes General: appearance normal, both eyes and all related structures Periorbital: periorbital findings normal Eyelids: Yes eyelids normal Conjunctivae: conjunctivae normal Pupils: Equal, round and reactive pupils present EOM: EOMs intact bilaterally Neck Neck: Yes normal visual inspection and Yes full ROM Resp Effort & Inspection: normal respiratory effort and able to speak in complete sentences Neuro General: patient oriented x3, moves all extremities and CN's II-XI intact bilaterally Cranial nerves: Yes Equal, round and reactive pupils present Cognition (Neuro): normal cognition Extrem General: Yes normal to inspection, Yes full ROM and Yes capillary refill normal Psych Appearance: grossly normal Mental Status: mental status grossly normal Affect: normal affect Attitude: cooperative Thought process: Normal thought process present Thought content: Normal thought content present Insight: Good insight present (Psych) Medical Decision Making Medical Decision Making MDM Narrative: Patient is a 79 year old assigned female at with a history of previous CVA with left-sided deficits, paroxysmal AFib on Eliquis, type 2 diabetes, hypertension, hyperlipidemia, and hypothyroidism presenting to the emergency department today after a mechanical fall on 07/01/2025. Patient's physical exam showed a small posterior scalp hematoma but otherwise unremarkable. Patient's right hip and lumbar x-rays showed no acute process. Patient's CT head and c- spine showed no acute process. I explained my physical exam findings as well as all test results to the patient. I answered all questions asked by the patient. I stressed the importance of the patient taking her medication as directed (either prescribed or as the over the counter packaging recommends). I stressed the importance of the patient following up with her primary care provider. I stressed the importance of the patient returning to the emergency department immediately if her symptoms were to worsen or if she were to develop any dizziness, shortness of breath, difficulty breathing, chest pain, blurry vision, loss of vision, nausea, vomiting, abdominal pain, fever, chills, back pain, or any other complaints. Patient verbalized agreement and understanding with this treatment plan and discharge. Differential Diagnosis Differential Diagnoses: The differential diagnosis associated with the presentation includes Fall Hematoma Concussion Closed head injury Admission/Observation Consideration of admission/observation: Escalation of care including admission/observation considered Patient would have been admitted to the hospital had her work up had any findings where hospital admission was appropriate and her clinical presentation warranted hospital admission. Independent Interpretation I performed an independent interpretation of an: Plain X-Ray and CT Scan Interpretation: My interpretation is in agreement with the radiologist's impression of these imaging studies. Report Number: [id number]: Total DLP = 596.17 mGy-cm CLINICAL HISTORY: pain, injury, fall CT of the head without contrast. Comparison 06/14/2025. Findings: There is diffuse atrophy with white matter changes. There is encephalomalacia in the distribution of the right middle cerebral artery suspicious for an old infarct. No acute hemorrhage or definite acute infarct is seen. There is no hydrocephalus or mass effect. Impression: No acute hemorrhage. This document has been electronically signed by: Du Luz MD on 07/03/2025 17:47:03 Dictated By: Bud Garza MD Signed By: Electronically signed by Bud Garza MD 07/03/25 1747 Report Number: [id number]: Total DLP = 312.21 mGy-cm CLINICAL HISTORY: pain, injury, fall CT of the cervical spine without contrast. Comparison 06/14/2025. Findings: No acute fractures are seen. There are advanced degenerative changes. Multiple facet joints are fused. Minimal malalignment is likely degenerative in nature. There are changes of emphysema. There is mild nonspecific dilatation of the proximal esophagus. Impression: No acute fractures. This document has been electronically signed by: Du Luz MD on 07/03/2025 17:45:38 Dictated By: Bud Garza MD Signed By: Electronically signed by Bud Garza MD 07/03/25 1746 EXAMINATION: Lumbar spine and right hip. CLINICAL INDICATION: Injury. Pain. Graph comparison: Left hip and left knee 12/15/2024. TECHNIQUE: Right hip and AP pelvis 3 views. Left knee 2 views. Right hip and AP pelvis: There is minimal loss of bilateral hip joints without fracture or bony abnormality of the pelvis. AP and frog-leg views right hip: There is no visible fracture or dislocation. The soft tissues are normal. Left knee: There is severe loss of tricompartment joint space with periarticular spurring. No loose bodies, fracture or dislocation seen. There is no joint effusion seen. Extensive vascular calcifications are seen in the left knee. XR/XR hip RT w PEL1V IMPRESSION: No acute fracture or dislocation left knee. Moderate to advanced degenerative changes. No acute fracture or dislocation right hip or AP pelvis. Electronically signed by: Serge Everett MD 07/03/2025 04:45 PM EDT Dictated By: Serge Everett MD Signed By: Electronically signed by Serge Everett MD 07/03/25 1645 EXAMINATION: Lumbar spine and right hip. CLINICAL INDICATION: Injury. Pain. Graph comparison: Left hip and left knee 12/15/2024. TECHNIQUE: Right hip and AP pelvis 3 views. Left knee 2 views. Right hip and AP pelvis: There is minimal loss of bilateral hip joints without fracture or bony abnormality of the pelvis. AP and frog-leg views right hip: There is no visible fracture or dislocation. The soft tissues are normal. Left knee: There is severe loss of tricompartment joint space with periarticular spurring. No loose bodies, fracture or dislocation seen. There is no joint effusion seen. Extensive vascular calcifications are seen in the left knee. XR/XR lumbar spine 2-3V IMPRESSION: No acute fracture or dislocation left knee. Moderate to advanced degenerative changes. No acute fracture or dislocation right hip or AP pelvis. Electronically signed by: Serge Everett MD 07/03/2025 04:45 PM EDT RP Dictated By: Serge Everett MD Signed By: Electronically signed by Serge Everett MD 07/03/25 1640 Radiology Impression Discussion of test interpretation with radiology: I have reviewed the radiologist's reading. Independent Historian Clinical information obtained from an independent historian. History obtained from or confirmed by: EMS (EMS provided additional history and confirmed the history provided by the patient. ) and Other (Patient's daughter provided additional history and confirmed the history provided by the patient. ) Discharge Plan Discharge Clinical Impression: Fall, Closed head injury Patient Disposition: Home, Self-Care Instructions: Fall Prevention for Older Adults (ED), Head Injury (DC) Additional Instructions: IF you are prescribed home medications and/or you are taking over the counter medications at home - it is very important you continue to do so as prescribed / directed unless told otherwise. Follow up with your primary care provider. Return to the emergency department immediately if your symptoms worsen or if you develop any numbness, tingling, dizziness, shortness of breath, difficulty breathing, chest pain, blurry vision, loss of vision, nausea, vomiting, abdominal pain, fever, chills, back pain, or any other complaints. Please see the information below about our Patient Portal. If you are not yet enrolled in the [facility] Patient Portal, you will receive an enrollment email invitation following your visit to any [facility] setting. You may also self-enroll in the Patient Portal by visiting our website: [email or web address] The following information is required to access the Patient Portal: - Your [facility] Medical Record Number - Your personal home email address (must match what is in your electronic medical record, Registration staff can assist with this) - Name - Date of Capabilities of the Patient Portal: - Message some providers - View upcoming appointments - Access your health summary, medical history, and visit history - View current conditions and allergies - View procedure and lab results - View your medications, including guidelines, side effects, and precautions - Complete pre-appointment questionnaires requested by your provider - Ready summary reports of your office visits and procedures To access the Patient Portal Mobile Donte, follow these directions: - Search [employer] in the Donte Store or inmobly Store - Download the Donte - Search for [facility] - Enter your login/password Prescriptions: No Action (DME) pen needle, diabetic [Novofine 32] 32 gauge x 1/4 needle See Rx Instructions .Route Qty: 100 0RF Rx Instructions: As directed up to three times per day (DME) Stair lift See Rx Instructions .Route .MEDSUPPLY Qty: 1 0RF Rx Instructions: As directed (DME) blood sugar diagnostic Strip See Rx Instructions .ROUTE .MEDSUPPLY Qty: 100 11RF Rx Instructions: FREESTYLE LITE TEST STRIPS TO CHECK THREE TIMES A DAY metformin 1,000 mg tablet 1,000 mg PO BIDWM Qty: 180 3RF ezetimibe 10 mg tablet 10 mg PO BEDTIME Qty: 30 1RF Eliquis 5 mg tablet 5 mg PO BID Qty: 60 4RF sertraline 50 mg tablet 50 mg PO BEDTIME 90 Days Qty: 90 1RF cyanocobalamin (vitamin B-12) 250 mcg Tablet 500 mcg PO DAILY gabapentin 300 mg capsule 300 mg PO BEDTIME levothyroxine 112 mcg tablet 112 mcg PO DAILY@0600 atorvastatin 80 mg tablet 80 mg PO BEDTIME magnesium oxide 400 mg (241.3 mg magnesium) Tablet 800 mg PO BID 90 Days Qty: 360 0RF liraglutide 0.6 mg/0.1 mL (18 mg/3 mL) pen injector 1.2 mg subcut DAILY (DME) blood-glucose meter [FreeStyle Lite Meter] Kit See Rx Instructions .ROUTE .MEDSUPPLY Qty: 1 0RF Rx Instructions: As directed Referrals: Trevor Rios MD [Primary Care Provider, Internal Medicine] Print Language: Yemeni
--- OUTSIDE RECORDS SUMMARY | 2025-07-03 15:43 | XMS_ITS | Patient Health Record ---
Author Organization [facility] Address [address] [place] [address] Care Team Providers Care Synthetic Filament Extruder Name Role Phone Milana NATARAJAN, Allen Primary Care Provider Desire Arias Unavailable [phone] Allergies No Known Allergies Reason For Referral [...] Problem Acquired hammer toe of right foot (8309821375664078 ) Other hammer toe(s) (acquired), right foot (M20.41) Active confirmed Problem Acquired hammer toe of left foot (4244411560532353 ) Other hammer toe(s) (acquired), left foot (M20.42) Active confirmed Problem Acquired hammer toe of left foot (3049897986091375 ) Hammer toe of left foot (M20.42) Active confirmed Problem Polyneuropathy due to type 2 diabetes mellitus (456957368) 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.42) Active confirmed Problem Localized, primary osteoarthritis of the ankle and/or foot (693782919) Osteoarthritis of left ankle and foot (M19.072) Active confirmed Encounters Encounter Location Date Provider Diagnosis [facility] [address] [place] [address] 07/11/2024 Desire Ashford Plan Of Treatment Pending Test Test Name Order Date 10024-RSTQUAC NAIL, 6 OR MORE 01/23/2015 [id number] Plate 01/23/2015 88980-Xzhlqcau Plate Each Additional 01/2015 [id number] SKIN LESIONS, OVER 4 01/24/20 15 Insurance Providers Payer Name Payer Address Payer Phone Subscriber Number Group Number Insured Name Patient Relationship to Insured Coverage Start Date Coverage End Date [employer] [address] [place] [address] [phone] [id number] Naty Cervantes Self - patient is the insured Medical (General) History Medical History History ICD Code Chicken pox Measles Mumps Hypertension Thyroid disorder Diabetic Arthritis Back,Hip,and Knee pain CAD (Cholesterol) Gall bladder problems Vascular phlebitis (clots) Stroke Cataracts Hearing loss Surgical History Surgery Date(Month/Year) cholecystectomy hysterectomy 1994 back surgery 1991 gall bladder 1970 cataract surgery Hospitalization History Reason Date(Month/Year[place] [facility] [place]
--- OUTSIDE RECORDS SUMMARY | 2025-07-03 15:43 | XMS_ITS | Clinical Summary ---
Author Organization [facility] Address [address] [place] [address] Care Team Providers Care Quilting Supervisor Name Role Phone Allen Cortés MD Primary Care Provider [phone] Allergies No known active allergies Medications ezetimibe [...] Years Used Date Smoking Tobacco: Never Assessed [facility] Utilities Answer Date Recorded In the [...] place to sleep or slept in a correction (including now)? No 06/27/2024 Comments Unknown Sex [...] 65 - 99 mg/dL 06/29/2024 12:04 PM [facility] Comment:Fasting: <100 mg/dL, Non-Fasting: <200 mg/dL (ADA 2004) Blood Urea Nitrogen (BUN) 12 8 - 21 mg/dL 06/29/2024 12:04 PM [facility] Creatinine 0.8 0.4 - 1.1 mg/dL 06/29/2024 12:04 PM [facility] eGFR 75 >59 06/29/2024 12:04 PM [facility] Comment:CKD-EPI (2020) in mL /min/1.73 sq meters. Sodium 140 136 - 145 mmol/L 06/29/2024 12:04 PM [facility] Potassium 4.3 3.4 - 5.3 mmol/L 06/29/2024 12:04 PM [facility] Chloride 104 98 - 107 mmol/L 06/29/2024 12:04 PM [facility] CO2 23 22 - 33 mmol/L 06/29/2024 12:04 PM [facility] Anion Gap 13 7 - 17 06/29/2024 12:04 PM [facility] Calcium 8.9 8.7 - 10.5 mg/dL 06/29/2024 12:04 PM [facility] BUN/Creatinine Ratio 15 10.0 - 25.0 Ratio 06/29/2024 12:04 PM [facility] Blood (Plasma/Serum) 06/29/2024 10:27 AM EDT 06/29/2024 11:25 AM EDT us Byron Victoria MD LAB BLOOD ORDERABLES Final Resu lt Performing Organization Address City/[facility]/[place] [address], [place] [address] * (ABNORMAL) Hemoglobin A1c with Estimated Average Glucose (06/27/2024 8:21 AM EDT) Hemoglobin A1C 7.0(H) <5.7 % 06/27/2024 9:07 AM T [facility] Comment: A1c% Interpretation 5.7 - 6.0 Increase risk of diabetes 6.1 - 6.4 Higher risk of diabetes > or = 6.5 Consistent with diabetes Diabetes Care, 33(Supp 1):S1-S61, 2010 Estimated Average Glucose 154 mg/dL 06/27/2024 9:07 AM [facility] Blood Blood specimen / Unknown 06/27/2024 8:21 AM EDT 06/27/2024 8:32 AM EDT Paul Ospina MD LAB BLOOD ORDERABLES Final Result Performing Organization Address City/[facility]/[place] [address], [place] [address] * (ABNORMAL) Lipid Panel (06/27/2024 8:21 AM EDT) Cholesterol, Total 141 <200 mg/dL 2023 9:18 AM [facility] Triglycerides 169(H) <150 mg/dL 06/27/2024 9:18 AM [facility] Cholesterol, HDL 58 >39 mg/dL 06/27/20 9:18 AM [facility] Estimated LDL 49 <130 mg/dL 06/27/2024 9:18 AM [facility] Comment: NCEP Guidelines: < 100 mg/dL Optimal 100 - 129 mg/dL Near Optimal/Above Optimal 130 - 159 mg/dL Borderline High 160 - 189 mg/dL High >/= 190 mg/dL Very High Cholesterol/HDL Ratio 2.4 0.0 - 5.0 Ratio 06/27/2024 9:18 AM [facility] Comment: Relative Risk Ratio - Male Ratio - Female 0.5 3.4 3.3 1.0 5.0 4.4 2.0 9.6 7.1 3.0 23.4 11.0 Blood (Plasma/Serum) 06/27/2024 8:21 AM EDT 06/27/2024 8:32 AM EDT Paul Ospina MD LAB BLOOD ORDERABLES Final Result [facility] [address] [place] [address], [facility] [address] [place] [address] from Last 3 Months or Most Recently Relevant to Health Maintenance Insurance MEDICARE PART A & B [facility] MEDICARE Advance Directives * DNR (Latest Code Status on File) Date Activated Date Inactivated Comments 06/27/2024 4:12 PM Question Answer Comments Decision thoroughly discussed with: Gail ent arrived with valid State [place] DNR Transfer form * Full Code Date Activated Date Inactivated Comments 06/26/2024 8:41 PM 06/27/2024 4:12 PM Care Teams Quilting Supervisor Relationship Specialty Start Date End Date Allen Cortés MD [address] [place] [address] PCP - General 06/26/24
--- OUTSIDE RECORDS SUMMARY | 2025-07-03 15:43 | XMS_ITS | Patient Health Record ---
Author Organization [facility] Address [address] [place] [address] Care Team Providers Care General Supervisor Name Role Phone Wilbur Velázquez M.D. 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) Active confirmed Plan Of Treatment Future Test Test Name Order Date COLONOSCOPY 06/09/2018 Insurance Providers Payer Name Payer Address Payer Phone Subscriber Number Group Number Insured Name Patient Relationship to Insured Coverage Start Date Coverage End Date [facility] [address] [place] [phone] [id number] ALFONSO CUNHA Self - patient is the insured Medical (General) History Medical History History ICD Code hypertension diabetes mellitus elevated cholesterol hypothyroidism arthritis Surgical History Surgery Date(Month/Year) hysterectomy back surgery cholecystectomy cataract-lens implants both eyes
--- OUTSIDE RECORDS SUMMARY | 2025-07-03 15:43 | XMS_ITS | Encounter Summary ---
Author Organization [facility] Address [address] [place] [address] Care Team Providers Care Trail Construction Worker Name Role Phone Bruce Welch MD Primary Care Provider [phone] Encounter Details Date Type Department Care Team (Late st Contact Info) Description 06/30/2025 Lab Requisition [facility] - Main Lab [address] [facility] [employer] [place] [address] Bruce Welch MD [address] [place], [place] [id number] Type 2 diabetes mellitus without complications (CMS/HCC V24, CMS/HCC V28); Anemia, unspecified Social History Tobacco Use Types Packs/Day Years [...] Associated Diagnosis Comments COMPLETE BLOOD COUNT Routine 07/03/2025 8:21 AM EDT Type 2 diabetes mellitus without complications (CMS/HCC V24, CMS/HCC V28) Anemia, unspecified BASIC METABOLIC PANEL Routine 07/03/2025 8:21 AM EDT Type 2 diabetes mellitus without complications (CMS/HCC V24, CMS/HCC V28) Anemia, unspecified documented in this encounter Results * Basic metabolic panel (07/03/2025 8:21 AM EDT) Sodium 139 133 - 145 mmol/L LAB CHEMISTRY METHOD 07/03/2025 1:00 PM [facility] Potassium 4.2 3.5 - 5.5 mmol/L LAB CHEMISTRY METHOD 07/03/2025 1:00 PM [facility] Chloride 102 96 - 110 mmol/L LAB CHEMISTRY METHOD 07/03/2025 1:00 PM [facility] CO2 31 21 - 32 mmol/L LAB CHEMISTRY METHOD 07/03/2025 1:00 PM [facility] Anion Gap 6 3 - 11 LAB CHEMISTRY METHOD 07/03/2025 1:00 PM [facility] Glucose 74 70 - 100 mg/dL LAB CHEMISTRY METHOD 07/03/2025 1:00 PM [facility] BUN 15 5 - 25 mg/dL LAB CHEMISTRY METHOD 07/03/2025 1:00 PM [facility] Creatinine 0.72 0.50 - 1.10 mg/dL LAB CHEMISTRY METHOD 07/03/2025 1:00 PM [facility] eGFR 85 >=60 mL/min/1. 73m2 LAB CHEMISTRY METHOD 07/03/2025 1:00 PM [facility] Comment:Calculation based on the Chronic Kidney Disease Epidemiology Collaboration (CKD-EPI) equation refit without adjustment for race. BUN/Creatinine Ratio 20.8 LAB CHEMISTRY METHOD 07/03/2025 1:00 PM [facility] Calcium 9.4 8.5 - 10.5 mg/dL LAB CHEMISTRY METHOD 07/03/2025 1:00 PM [facility] Blood Venous blood specimen / Unknown Venipuncture / Unknown 07/03/2025 8:21 AM EDT 07/03/2025 11:55 AM EDT us Bruce Welch MD LAB BLOOD ORDERABLES Final Resul t [facility] [address] [place] [address], * (ABNORMAL) Complete blood count (07/03/2025 8:21 AM EDT) [facility] WBC 10.6 4.8 - 10.8 K/mcL LAB HEMETOLOGY METHOD 07/03/2025 1:[address] [facility] RBC 4.00 3.80 - 4.80 M/mcL LAB HEMETOLOGY METHOD 07/03/2025 1:[address] [facility] Hemoglobin 9.9(L) 11.5 - 16.0 g/dL LAB HEMETOLOGY METHOD [facility] Hematocrit 33.4(L) 35.0 - 47.0 % LAB HEMETOLOGY METHOD 07/03/2025 1:24 PM [facility] MCV 82.9 79.0 - 98.0 FL LAB HEMETOLOGY METHOD 07/03/2025 1[facility] MCH 24.6(L) 27.0 - 32.0 pcg LAB HEMETOLOGY METHOD 07/03/2025 1:24 PM [facility] MCHC 29.6(L) 32.0 - 37.0 g/dL LAB HEMETOLOGY METHOD 07/03/2025 1:24 PM [facility] RDW 16.0(H) 11.0 - 15.0 % LAB HEMETOLOGY METHOD 07/03/2025 1:[address] [facility] Platelets 419(H) 130 - 400 K/mcL LAB HEMETOLOGY METHOD 07/03/2025 1:24 PM [facility] MPV 10.6 7.0 - 11.0 FL LAB HEMETOLOGY METHOD 07/03/2025 [facility] NRBC 0.0 <1.0 % LAB HEMETOLOGY METHOD 07/03/2025 1:[address] [facility] NRBC Absolute 0.00 <0.10 K/mcL LAB HEMETOLOGY METHOD 07/03/2025 1:[address] [facility] Blood Venous blood specimen / Unknown Venipuncture / Unknown 07/03/2025 8:21 AM EDT 07/03/2025 11:55 AM EDT Bruce Welch MD LAB BLOOD ORDERABLES Final Resul t [facility] [address] [place] [address], documented in this encounter Visit Diagnoses Diagnosis Type 2 diabetes mellitus without complications (CMS/HCC V24, CMS/HCC V28) Anemia, unspecified documented in this encounter Care Teams Trail Construction Worker Relationship Specialty Start Date End Date Bruce Welch MD [address] [place] [address] [address] [place] [address] PCP - General Geriatric Medicine 06/19/25 documented as of this encounter
--- OUTSIDE RECORDS SUMMARY | 2025-07-03 15:43 | XMS_ITS | Clinical Summary ---
Author Organization [facility] Address [address] [address] Phone Care Team Providers Care Hand Twister Name Role Phone Trevor Rios MD Primary [...] Care Team Description 05/25/2025 Orders Only [facility] [address] [place] [address] Homehealth, Interface ProviderMD 04/19/2025 Orders Only [facility] [address] [place] [address] Homehealth, Interface ProviderMD from Last [...] Advance Directives For more information, please contact: [phone] (9AM - 5PM [facility], Thursday-Thursday) Documents on File Type Date Recorded Patient Jd Edwards Developer Expl stefanie MOL 08/05/2024 Care Teams Hand Twister Relationship Specialty Start Date End Date Trevor Rios MD [address] [place] [id number] PCP - General Internal Medicine 09/02/24 Additional Source Comments The information contained in this document represents components of the legal health record. It is not the complete legal health record.[facility]
--- NOTE | 2025-07-03 20:41 | PC.NURSE ---
EMS at bedside for transport.
== END 2025-07-03 20:30 | disposition home or self-care (01) ==
PROVIDERS: Emergency Provider Emergency Medicine; PCP Internal Medicine
DX: M54.50 Low back pain, unspecified (principal); S09.8XXA Other specified injuries of head, initial encounter; I10 Essential (primary) hypertension; M53.3 Sacrococcygeal disorders, not elsewhere classified; I48.0 Paroxysmal atrial fibrillation; W07.XXXA Fall from chair, initial encounter; I69.398 Other sequelae of cerebral infarction; Y93.89 Activity, other specified; Y92.098 Other place in other non-institutional residence as the place of occurrence of the external cause; Y99.8 Other external cause status; Z79.01 Long term (current) use of anticoagulants; Z79.899 Other long term (current) drug therapy
CPT/HCPCS: 70450; 72100; 72125; 73502; 99283; 99284

== ENCOUNTER → 2025-07-03 15:35 | Outpatient (BNV) | payer MEDICARE, SELFPAY | PROVIDERS: PCP Internal Medicine; Visit Provider Radiology Diagnostic Radiology | DX: M50.30 Other cervical disc degeneration, unspecified cervical region (principal); S09.90XA Unspecified injury of head, initial encounter; M16.11 Unilateral primary osteoarthritis, right hip; M54.50 Low back pain, unspecified | CPT/HCPCS: 70450; 72100; 72125; 73502 ==

== ENCOUNTER 2025-08-16 10:21 | Outpatient (AMB) | payer MEDICARE, SELFPAY ==
--- OUTSIDE RECORDS SUMMARY | 2024-07-13 10:30 | XMS_ITS ---
Author Organization [facility] Address [address] [place] [phone] Care Team Providers Care Wheelage Clerk Name Role Phone Milana NATARAJAN, Allen Primary Care Provider Desire Arias [phone] Encounters Encounter Location Date Provider Diagnosis [address] [address] 07/13/2024 Desire Ashford Plan Of Treatment No Information Progress Notes * Naty CERVANTES LDOB: [birth year] (79 yo F)Acc No.[id number]:07/13/2024 Progress Note Patient: Naty WOLF Provider: Caitlin Ashford DPM :1945 A ge:78 Y S ex:Female Date:07/13/2024 Address:[address] [place], [place] [id number] Pcp:Allen Cortés MD Subjective: * Chief Complaints: * * Medical History: Objective: * Vitals: Assessment: Plan: * Treatment: * Images: * The named appointment provid er may or may not be the originator of this progress note, and it is not deemed complete until electronically signed by the appointment provider. Sign off status: Pending * Provider: Caitlin Ashford DPM Date: 07/13/2024 Generated for Printi ng/Faxing/eTransmitting on: 08/16/2025 12:48 PM EDT
--- NOTE | 2025-08-16 10:39 | A.OFFPC_ITS ---
Vital Signs 08/16/25 10:40 Height 5 ft 1 in Weight 143 lb 6 oz BMI 27.1 BP 110/64 Blood Pressure Location Lt brachial Position Sitting Pulse 60 Pulse Source Pulse Oximeter Temp 97.3 F Temp Source Temporal Artery Scan Pulse Oximetry (%) 97 Oxygen Delivery Method Room Air Intake Visit Reasons: [facility] 07/09 - see comments Intake Note: Patient is here for hospital discharge follow up. Patient was discharged from [facility] on 07/09/25. Lasting Room Supervisor Required: No Reptile Keeper: Present Accompanied by: Grand Child Allergies amoxicillin (Augmentin) Allergy (Unknown, Verified 08/16/25 10:40) hives clavulanic acid (Augmentin) Allergy (Unknown, Verified 08/16/25 10:40) hives furosemide Allergy (Unknown, Verified 08/16/25 10:40) unknown latex (LATEX) Allergy (Unknown, Verified 08/16/25 10:40) UNKNOWN lisinopril Allergy (Unknown, Verified 08/16/25 10:40) Unknown oxycodone (Percocet) Allergy (Unknown, Verified 08/16/25 10:40) Stomach upset tramadol Allergy (Unknown, Verified 08/16/25 10:40) Stomach uspet Tobacco use date assessed: 08/16/25 Fall risk assessment: 2 + Falls in past year Last assessed Fall Risk: 08/16/25 Dental Screening Dental Screen Date: 04/28/25 [facility] Medical History (Updated 08/16/25 @ 11:20 by Trevor Rios MD) Frequent falls Paroxysmal atrial fibrillation Orthostatic hypotension Anemia Buttock wound Obesity (BMI 30-39.9) Neuropathy Acquired hypothyroidism Mixed hyperlipidemia Essential hypertension Atrial fibrillation Hypothyroidism Obesity Type 2 diabetes mellitus with morbid obesity Annual physical exam Vitamin D deficiency HLD (hyperlipidemia) T2DM (type 2 diabetes mellitus) Diabetes mellitus Hypertension Surgical History H/O hysterectomy for benign disease History of vitrectomy History of surgery History of colonoscopy (~01/28/19) History of appendectomy History of cholecystectomy S/P JOSIE (total abdominal hysterectomy) Family History Father Diabetes Mother CHF (congestive heart failure) CVD (cardiovascular disease) Brother HIV (human immunodeficiency virus infection) Social History Household Members: Children Household Members Other:: alternating among 2 daughters and 1 son Housing: House Do you presently have visiting nurse or other home services: No Unable to assess alcohol history related to: Unknown Alcohol intake: current Patient Tobacco Use Status: Former Tobacco user Tobacco use type: Cigarette Years Smoked: 30, started at 10, about 15 cig a day, e-Cigarette/Vaping Use: Former Use Second Hand Smoke Exposure: Yes Advance Directives Date on File: 12/15/23 service: No Current occupational status: retired Current occupational exposures/hazards: No Cognitive needs: No Hearing needs: No Vision needs: No Questionnaire Thrive Questionnaire Date Thrive assessed: 04/28/25 I am a: Parent/Caregiver What is your living situation today?: I have a steady place to live Within the past 12 months, did the food you bought not last and you didn't have the money to get more?: Never true Within the past 12 months, did you worry whether your food would run out before you got money to buy more?: Never true Do you have trouble paying for medicines?: No Do you have trouble getting transportation to medical appointments?: No Do you have trouble paying your heating and electricity bill?: No Do you have trouble taking care of your child, family member or friend?: No Do you have trouble with day-to-day activities such as bathing, preparing meals, shopping, managing finances, etc.?: No Are you currently unemployed and looking for a job?: No Are you interested in more education?: No Please select the resources that you would like help with: None Currently or been in a relationship where the following occur: No concerns reported THRIVE Score: 0 ARSLAN-7 AMB Questionnaire ARSLAN-7 Date ARSLAN - 7 assessed: 04/28/25 Source: Developed by Drs. Mendez Sanz, Shannan Quintanilla, Fuentes Sales and colleagues, with an educational aurelia from [employer]. Physical exam (Primary Care) Vital Signs: Last Vital Signs Temp 97.3 F 08/16/25 10:40 Pulse 60 08/16/25 10:40 BP 110/64 08/16/25 10:40 Pulse Ox 97 08/16/25 10:40 Oxygen Delivery Method Room Air 08/16/25 10:40 BMI result Body Mass Index 27.1 Tobacco/Smoking Status: Tobacco use Status Tobacco use date assessed 08/16/25 08/16/25 10:43 Patient Tobacco Use Status Former Tobacco user 08/16/25 10:43 Tobacco use type Cigarette 08/16/25 10:43 e-Cigarette/Vaping Use Former Use 08/16/25 10:43 Thrive Assessment: Date of Thrive Assessment Date Thrive assessed 04/28/25 08/16/25 10:43 Currently or been in a relationship where the following occur: No concerns reported Coding Level of Care Code Est Pt Level 4 (44313) Complex EM visit Add On G2211 Diagnoses Hypomagnesemia E83.42 Frequent falls R29.6 Assessment & Plan Assessment & Plan (1) Hypomagnesemia: Code(s): E83.42 - Hypomagnesemia Plan: Rpt Magnesium levels ordered. (2) Frequent falls: Code(s): R29.6 - Repeated falls Category: Medical Plan: Use of walker at all time suggested. Plan History of Present Illness - The patient is a 79-year-old female presenting with recent falls. - She has experienced multiple falls, including one with knee swelling and another with head trauma, but imaging showed no acute findings. - She is on Eliquis, requiring medical evaluation post-falls, and has completed physical and occupational therapy. - Carpal tunnel syndrome is present, with significant numbness in the right hand and potential surgery for the left hand. - Cognitive deficits, possibly due to past strokes, affect her depth perception and contribute to falls. - Chronic hypomagnesemia is managed with supplementation, and a repeat level is planned. Social History - The patient lives with her daughter and son-in-law in [facility] and has a personal care home administrator for 35 hours a week due to her inability to be left unsupervised. Review of Systems - Neurological: Reports cognitive deficits and numbness in the right hand. Denies acute neurological symptoms post-fall. - Musculoskeletal: Reports knee swelling post-fall. Denies other joint pain. Physical Exam General: Cooperative and healthy appearing Nutritional Appearance: Well nourished Orientation/consciousness: Patient oriented x3 Limitations: No limitations Head: Normal to inspection General: Appearance normal, both eyes and all related structures Neck: Normal visual inspection Chest: Normal palpation of entire chest wall Respiratory: N ormal respiratory effort Neurology: Patient oriented x3, but there are cognitive deficits noted, likely related to previous strokes. Depth perception issues are present, contributing to falls. Results - Imaging: Head scan post-fall showed no acute findings. Plan - Request an oxygen mask from [employer] for nighttime use. - Advise the patient to use a walker instead of a cane to prevent falls. - Refill all current medications as requested. - Refer to orthopedics for carpal tunnel syndrome evaluation and potential intervention. - Obtain a repeat magnesium level to monitor hypomagnesemia. Discussion Notes I discussed the need for an oxygen mask with [employer] and advised against using a cane to prevent falls. We will refill all medications and refer to orthopedics for carpal tunnel syndrome evaluation. A repeat magnesium level will be obtained to monitor hypomagnesemia. Patient Instructions - Use a walker instead of a cane to prevent falls. - Continue taking all prescribed medications as directed. - Follow up with orthopedics for carpal tunnel syndrome evaluation. - Get a repeat magnesium level as instructed. Orders: Orders Magnesium Today E83.42 - Hypomagnesemia
[2025-08-16 10:40] VITALS: BP 110/64; PULSE 60; TEMP 36.3; O2SAT 97; BMI 27.1
--- OUTSIDE RECORDS SUMMARY | 2025-08-16 12:48 | XMS_ITS | Encounter Summary ---
Author Organization [facility] Address [address] [place] [address] Care Team Providers Care Oncology Registrar Name Role Phone Bruce Welch MD Primary Care Provider [phone] Encounter Details Date Type Department Care Team (Late st Contact Info) Description 07/05/2025 Lab Requisition [facility] - Main Lab [address] [facility] [place] [address] Bruce Welch MD [address] [place], [place] [id number] Essential (primary) hypertension; Hypomagnesemia Social History Tobacco Use Types Packs/Day Years [...] Associated Diagnosis Comments COMPLETE BLOOD COUNT Routine 07/05/2025 6:12 AM EDT Essential (primary) hypertension Hypomagnesemia MAGNESIUM Routine 07/05/2025 6:12 AM EDT Essential (primary) hypertension Hypomagnesemia BASIC METABOLIC PANEL Routine 07/05/2025 6:12 AM EDT Essential (primary) hypertension Hypomagnesemia documented in this encounter Results * (ABNORMAL) Magnesium (07/05/2025 6:12 AM EDT) Magnesium 1.8(L) 1.9 - 2.6 mg/dL LAB CHEMISTRY METHOD 07/05/2025 11:16 AM [facility] Blood Venous blood specimen / Unknown Venipuncture / Unknown 07/05/2025 6:12 AM EDT 07/05/2025 9:34 AM EDT us Bruce Welch MD LAB BLOOD ORDERABLES Final Resul t [facility] [address] [place] [address], * Basic metabolic panel (07/05/2025 6:12 AM EDT) Sodium 140 133 - 145 mmol/L LAB CHEMISTRY METHOD 07/05/2025 11:16 AM [facility] Potassium 4.6 3.5 - 5.5 mmol/L LAB CHEMISTRY METHOD 07/05/2025 11:16 AM [facility] Chloride 103 96 - 110 mmol/L LAB CHEMISTRY METHOD 07/05/2025 11:16 AM [facility] CO2 32 21 - 32 mmol/L LAB CHEMISTRY METHOD 07/05/2025 11:16 AM [facility] Anion Gap 5 3 - 11 LAB CHEMISTRY METHOD 07/05/2025 11:16 AM [facility] Glucose 91 70 - 100 mg/dL LAB CHEMISTRY METHOD 07/05/2025 11:16 AM [facility] BUN 16 5 - 25 mg/dL LAB CHEMISTRY METHOD 07/05/2025 11:16 AM [facility] Creatinine 0.70 0.50 - 1.10 mg/dL LAB CHEMISTRY METHOD 07/05/2025 11:16 AM [facility] eGFR 88 >=60 mL/min/1. 73m2 LAB CHEMISTRY METHOD 07/05/2025 11:16 AM [facility] Comment:Calculation based on the Chronic Kidney Disease Epidemiology Collaboration (CKD-EPI) equation refit without adjustment for race. BUN/Creatinine Ratio 22.9 LAB CHEMISTRY METHOD 07/05/2025 11:16 AM EDT [facility] Calcium 8.9 8.5 - 10.5 mg/dL LAB CHEMISTRY METHOD 07/05/2025 11:16 AM EDT [facility] Blood Venous blood specimen / Unknown Venipuncture / Unknown 07/05/2025 6:12 AM EDT 07/05/2025 9:34 AM EDT us Bruce Welch MD LAB BLOOD ORDERABLES Final Resul t [facility] [address] [place] [address], [place] [phone] * (ABNORMAL) Complete blood count (07/05/2025 6:12 AM EDT) WBC 9.1 4.8 - 10.8 K/mcL LAB HEMETOLOGY METHOD 07/05/2025 10:26 AM [facility] RBC 4.30 3.80 - 4.80 M/mcL LAB HEMETOLOGY METHOD 07/05/2025 10:26 AM [facility] Hemoglobin 10.7(L) 11.5 - 16.0 g/dL LAB HEMETOLOGY METHOD 07/05/2025 10:26 AM [facility] Hematocrit 35.4 35.0 - 47.0 % LAB HEMETOLOGY METHOD 07/05/2025 10:26 AM [facility] MCV 81.6 79.0 - 98.0 FL LAB HEMETOLOGY METHOD 07/05/2025 10:26 AM [facility] MCH 24.7(L) 27.0 - 32.0 pcg LAB HEMETOLOGY METHOD 07/05/2025 10:26 AM [facility] MCHC 30.2(L) 32.0 - 37.0 g/dL LAB HEMETOLOGY METHOD 07/05/2025 10:26 AM EDT [facility] RDW 15.9(H) 11.0 - 15.0 % LAB HEMETOLOGY METHOD 07/05/2025 10:26 AM EDT [facility] Platelets 387 130 - 400 K/mcL LAB HEMETOLOGY METHOD 07/05/2025 10:26 AM EDT [facility] MPV 10.6 7.0 - 11.0 FL LAB HEMETOLOGY METHOD 07/05/2025 10:26 AM EDT [facility] NRBC 0.0 <1.0 % LAB HEMETOLOGY METHOD 07/05/2025 10:26 AM EDT [facility] NRBC Absolute 0.00 <0.10 K/mcL LAB HEMETOLOGY METHOD 07/05/2025 10:26 AM EDT [facility] Blood Venous blood specimen / Unknown Venipuncture / Unknown 07/05/2025 6:12 AM EDT 07/05/2025 9:34 AM EDT Bruce Welch MD LAB BLOOD ORDERABLES Final Resul t [facility] [address] [place] [address], documented in this encounter Visit Diagnoses Diagnosis Essential (primary) hypertension Unspecified essential hypertension Hypomagnesemia Disorders of magnesium metabolism documented in this encounter Care Teams Oncology Registrar Relationship Specialty Start Date End Date Bruce Welch MD [address] [place], [place] [id number] [place] [address] PCP - General Geriatric Medicine 06/19/25 documented as of this encounter
--- OUTSIDE RECORDS SUMMARY | 2025-08-16 12:48 | XMS_ITS | Encounter Summary ---
Author Organization [facility] Address [address] [place] [address] Care Team Providers Care Inside Sales Lead Name Role Phone Bruce Welch MD Primary Care Provider [phone] Encounter Details Date Type Department Care Team (Late st Contact Info) Description 04/10/2025 Lab Requisition [facility] - Main Lab [address] [facility] [place] [address] Bruce Welch MD [address] [place], [place] [phone] Vitamin D deficiency, unspecified; Essential (primary) hypertension; [...] Procedure Name Priority Date/Time Associated Diagnosis Comments LIPID PANEL WITH REFLEX TO DIRECT LDL Routine 04/10/2025 7:55 AM EDT Vitamin D deficiency, unspecified Essential (primary) hypertension Unspecified atrial fibrillation (CMS/HCC V24, CMS/HCC V28) Type 2 diabetes mellitus without complications (CMS/HCC V24, CMS/HCC V28) VITAMIN D 25 HYDROXY Routine 04/10/2025 7:55 AM EDT Vitamin D deficiency, unspecified Essential (primary) hypertension Unspecified atrial fibrillation (CMS/HCC V24, CMS/HCC V28) Type 2 diabetes mellitus without complications (CMS/HCC V24, CMS/HCC V28) COMPLETE BLOOD COUNT Routine 04/10/2025 7:55 AM EDT Vitamin D deficiency, unspecified Essential (primary) hypertension Unspecified atrial fibrillation (CMS/HCC V24, CMS/HCC V28) Type 2 diabetes mellitus without complications (CMS/HCC V24, CMS/HCC V28) HEMOGLOBIN A1C Routine 04/10/2025 7:55 AM EDT Vitamin D deficiency, unspecified Essential (primary) hypertension Unspecified atrial fibrillation (CMS/HCC V24, CMS/HCC V28) Type 2 diabetes mellitus without complications (CMS/HCC V24, CMS/HCC V28) FOLATE Routine 04/10/2025 7:55 AM EDT Vitamin D deficiency, unspecified Essential (primary) hypertension Unspecified atrial fibrillation (CMS/HCC V24, CMS/HCC V28) Type 2 diabetes mellitus without complications (CMS/HCC V24, CMS/HCC V28) VITAMIN B12 Routine 04/10/2025 7:55 AM EDT Vitamin D deficiency, unspecified Essential (primary) hypertension Unspecified atrial fibrillation (CMS/HCC V24, CMS/HCC V28) Type 2 diabetes mellitus without complications (CMS/HCC V24, CMS/HCC V28) COMPREHENSIVE METABOLIC PANEL Routine 04/10/2025 7:55 AM EDT Vitamin D deficiency, unspecified Essential (primary) hypertension Unspecified atrial fibrillation (CMS/HCC V24, CMS/HCC V28) Type 2 diabetes mellitus without complications (CMS/HCC V24, CMS/HCC V28) documented in this encounter Results * (ABNORMAL) Vitamin B12 (04/10/2025 7:55 AM EDT) [facility] Vitamin B-12 1,228(H) 250 - 900 pcg/mL LAB CHEMISTRY METHOD 04/10/2025 12:37 PM EDT [facility] Blood Venous blood specimen / Unknown Venipuncture / Unknown 04/10/2025 7:55 AM EDT 04/10/2025 10:43 AM EDT us Bruce Welch MD LAB BLOOD ORDERABLES Final Resul t Performing Organization Address City/[facility]/ZIP Co de Phone Number [facility] [address] [place] [address], [place] [phone] * Folate (04/10/2025 7:55 AM EDT) [facility] Folate 7.2 2.8 - 17.0 ng/ml LAB CHEMISTRY METHOD 04/10/2025 12:37 PM EDT [facility] Blood Venous blood specimen / Unknown Venipuncture / Unknown 04/10/2025 7:55 AM EDT 04/10/2025 10:43 AM EDT us Bruce Welch MD LAB BLOOD ORDERABLES Final Resul t Performing Organization Address [facility] Co de Phone Number [facility] [address] [place] [address], [place] [phone] * Vitamin D 25 hydroxy (04/10/2025 7:55 AM EDT) [facility] Vit D, 25-Hydroxy 71.3 30.0 - 80.0 ng/mL LAB CHEMISTRY METHOD 04/10/2025 2:06 PM EDT [facility] Blood Venous blood specimen / Unknown Venipuncture / Unknown 04/10/2025 7:55 AM EDT 04/10/2025 10:43 AM EDT us Bruce Welch MD LAB BLOOD ORDERABLES Final Resul t Performing Organization Address City/[facility]/ZIP Co de Phone Number [facility] [address] [place] [address], [place] [phone] * Hemoglobin A1c (04/10/2025 7:55 AM EDT) [facility] Hemoglobin A1C 6.3 <6.5 % LAB CHEMISTRY METHOD 04/10/2025 9:54 PM EDT [facility] Mean Bld Glu Estim. 134 mg/dL LAB CHEMISTRY METHOD 04/10/2025 9:54 PM EDT [facility] Blood Venous blood specimen / Unknown Venipuncture / Unknown 04/10/2025 7:55 AM EDT 04/10/2025 10:43 AM EDT us Bruce Welch MD LAB BLOOD ORDERABLES Final Resul t [facility] [address] [place] [address], [place] [phone] * (ABNORMAL) Lipid panel with reflex to direct LDL (04/10/2025 7:55 AM EDT) [facility] Cholesterol 94 0 - 200 mg/dL LAB CHEMISTRY METHOD 04/10/2025 12:37 PM [facility] Triglycerides 84 0 - 150 mg/dL LAB CHEMISTRY METHOD 04/10/2025 12:37 PM [facility] HDL 39(L) >=40 mg/dL LAB CHEMISTRY METHOD 04/10/2025 12:37 PM [facility] LDL Calculated 38 0 - 100 mg/dL LAB CHEMISTRY METHOD 04/10/2025 12:37 PM [facility] VLDL Cholesterol Apolinar 16.8 mg/dL LAB CHEMISTRY METHOD 04/10/2025 12:37 PM EDT [facility] Non HDL Chol. (LDL+VLDL) 55 <145 mg/dL LAB CHEMISTRY METHOD 04/10/2025 12:37 PM [facility] Chol/HDL Ratio 2.4 0.0 - 4.4 LAB CHEMISTRY METHOD 04/10/2025 12:37 PM [facility] Blood Venous blood specimen / Unknown Venipuncture / Unknown 04/10/2025 7:55 AM EDT 04/10/2025 10:43 AM EDT Bruce Welch MD LAB BLOOD ORDERABLES Final Resul t [facility] [address] [place] [address], [place] [phone] * (ABNORMAL) Comprehensive metabolic panel (04/10/2025 7:55 AM EDT) Sodium 142 133 - 145 mmol/L LAB CHEMISTRY METHOD 04/10/2025 12:37 PM [facility] Potassium 4.1 3.5 - 5.5 mmol/L LAB CHEMISTRY METHOD 04/10/2025 12:37 PM [facility] Chloride 107 96 - 110 mmol/L LAB CHEMISTRY METHOD 04/10/2025 12:37 PM [facility] CO2 27 21 - 32 mmol/L LAB CHEMISTRY METHOD 04/10/2025 12:37 PM [facility] Anion Gap 8 3 - 11 LAB CHEMISTRY METHOD 04/10/2025 12:37 PM [facility] Glucose 87 70 - 100 mg/dL LAB CHEMISTRY METHOD 04/10/2025 12:37 PM [facility] BUN 15 5 - 25 mg/dL LAB CHEMISTRY METHOD 04/10/2025 12:37 PM [facility] Creatinine 0.73 0.50 - 1.10 mg/dL LAB CHEMISTRY METHOD 04/10/2025 12:37 PM [facility] eGFR 84 >=60 mL/min/1. 73m2 LAB CHEMISTRY METHOD 04/10/2025 12:37 PM [facility] Comment:Calculation based on the Chronic Kidney Disease Epidemiology Collaboration (CKD-EPI) equation refit without adjustment for race. BUN/Creatinine Ratio 20.5 LAB CHEMISTRY METHOD 04/10/2025 12:37 PM T [facility] Calcium 8.4(L) 8.5 - 10.5 mg/dL LAB CHEMISTRY METHOD 04/10/2025 12:37 PM [facility] AST (SGOT) 35 10 - 42 unit/L LAB CHEMISTRY METHOD 04/10/2025 12:37 PM [facility] ALT (SGPT) 34 10 - 60 unit/L LAB CHEMISTRY METHOD 04/10/2025 12:37 PM [facility] Alkaline Phosphatase 225(H) 42 - 121 unit/L LAB CHEMISTRY METHOD 04/10/2025 12:37 PM [facility] Total Protein 5.4(L) 6.0 - 8.0 g/dL LAB CHEMISTRY METHOD 04/10/2025 12:37 PM [facility] Albumin 2.4(L) 3.2 - 5.0 g/dL LAB CHEMISTRY METHOD 04/10/2025 12:37 PM [facility] Total Bilirubin 0.4 0.0 - 1.4 mg/dL LAB CHEMISTRY METHOD 04/10/2025 12:37 PM [facility] Blood Venous blood specimen / Unknown Venipuncture / Unknown 04/10/2025 7:55 AM EDT 04/10/2025 10:43 AM EDT us Bruce Welch MD LAB BLOOD ORDERABLES Final Resul t [facility] [address] [place] [address], * (ABNORMAL) Complete blood count (04/10/2025 7:55 AM EDT) WBC 7.3 4.8 - 10.8 K/mcL LAB HEMETOLOGY METHOD 04/10/2025 12:23 PM EDT [facility] RBC 3.30(L) 3.80 - 4.80 M/mcL LAB HEMETOLOGY METHOD 04/10/2025 12:23 PM [facility] Hemoglobin 8.4(L) 11.5 - 16.0 g/dL LAB HEMETOLOGY METHOD 04/10/2025 12:23 PM [facility] Hematocrit 27.9(L) 35.0 - 47.0 % LAB HEMETOLOGY METHOD 04/10/2025 12:23 PM [facility] MCV 83.8 79.0 - 98.0 FL LAB HEMETOLOGY METHOD 04/10/2025 12:23 PM [facility] MCH 25.2(L) 27.0 - 32.0 pcg LAB HEMETOLOGY METHOD 04/10/2025 12:23 PM [facility] MCHC 30.1(L) 32.0 - 37.0 g/dL LAB HEMETOLOGY METHOD 04/10/2025 12:23 PM [facility] RDW 15.7(H) 11.0 - 15.0 % LAB HEMETOLOGY METHOD 04/10/2025 12:23 PM [facility] Platelets 279 130 - 400 K/mcL LAB HEMETOLOGY METHOD 04/10/2025 12:23 PM [facility] MPV 11.8(H) 7.0 - 11.0 FL LAB HEMETOLOGY METHOD 04/10/2025 12:23 PM [facility] NRBC 0.0 <1.0 % LAB HEMETOLOGY METHOD 04/10/2025 12:23 PM [facility] NRBC Absolute 0.00 <0.10 K/mcL LAB HEMETOLOGY METHOD 04/10/2025 12:23 PM [facility] Blood Venous blood specimen / Unknown Venipuncture / Unknown 04/10/2025 7:55 AM EDT 04/10/2025 10:43 AM EDT Bruce Welch MD LAB BLOOD ORDERABLES Final Resul t [facility] [address] [place] [address], [place] [phone] documented in this encounter Visit Diagnoses Diagnosis Vitamin D deficiency, unspecified Essential (primary) hypertension Unspecified essential hypertension Unspecified atrial fibrillation (CMS/[facility] V24, CMS/[facility] V28) Type 2 diabetes mellitus without complications (CMS/[facility] V24, CMS/[facility] V28) documented in this encounter Care Teams Inside Sales Lead Relationship Specialty Start Date End Date Bruce Welch MD [address] [place] [address] [address] [place] [address] PCP - General Geriatric Medicine 06/19/25 documented as of this encounter
--- OUTSIDE RECORDS SUMMARY | 2025-08-16 12:48 | XMS_ITS | Patient Health Record ---
Author Organization [facility] Address [address] [place] [address] Care Team Providers Care Nozzle Tender Name Role Phone Wilbur Velázquez M.D. Primary [...] Orally every 12 hrs/prn Active Vitamin D3 65755 UNIT 1 capsule Orally O nce a [...] Problem Status W/U Status Risk Notes Problem 365886174 Colon cancer screening (Z12.11) Active confirmed Problem [id number] buttermaker (current) use of non-steroidal anti-inflammato rex (NSAID) (Z79.1) Active confirmed Problem [id number] buttermaker (current) use of insulin (Z79.4) Active confirmed Plan Of Treatment Future Test Test Name Order Date COLONOSCOPY 06/09/2018 Insurance Providers Payer Name Payer Address Payer Phone Subscriber Number Group Number Insured Name Patient Relationship to Insured Coverage Start Date Coverage End Date [facility] [address] [place] [phone] [id number] ALFONSO CUNHA Self - patient is the insured Medical (General) History Medical History History ICD Code hypertension diabetes mellitus elevated cholesterol hypothyroidism arthritis Surgical History Surgery Date(Month/Year) hysterectomy back surgery cholecystectomy cataract-lens implants both eyes
--- OUTSIDE RECORDS SUMMARY | 2025-08-16 12:48 | XMS_ITS | Encounter Summary ---
Author Organization [facility] Address [address] [place] [address] Care Team Providers Care Meat Pickler Name Role Phone Bruce Welch MD Primary Care Provider [phone] Encounter Details Date Type Department Care Team (Late st Contact Info) Description 07/14/2025 Lab Requisition [facility] - Main Lab [address] [facility] [employer] [place] [address] Bruce Welch MD [address] [facility] [address] [place], [place] [phone] Type 2 diabetes mellitus without complications (CMS/HCC [...] on file documented as of this encounter Visit Diagnoses Diagnosis Type 2 diabetes mellitus without complications (CMS/HCC V24, CMS/HCC V28) Anemia, unspecified documented in this encounter Care Teams Meat Pickler Relationship Specialty Start Date End Date Bruce Welch MD [address] [facility] [address] [place], [place] [phone] PCP - General Geriatric Medicine 06/19/25 documented as of this encounter
--- OUTSIDE RECORDS SUMMARY | 2025-08-16 12:48 | XMS_ITS | Encounter Summary ---
Author Organization [facility] Address [address] [place] [address] Care Team Providers Care Category Director Name Role Phone Bruce Welch MD Primary Care Provider [phone] Encounter Details Date Type Department Care Team (Late st Contact Info) Description 06/30/2025 Lab Requisition [facility] - Main Lab 299 [facility] [email or web address] [address] Bruce Welch MD [address] [place], [place] [id number] Type 2 diabetes mellitus without complications (CMS/HCC [...] mmol/L LAB CHEMISTRY METHOD 07/03/2025 1:00 PM [facility] Potassium 4.2 3.5 - 5.5 mmol/L LAB CHEMISTRY METHOD 07/03/2025 1:00 PM [facility] Chloride 102 96 - 110 mmol/L LAB CHEMISTRY METHOD 07/03/2025 1:00 PM [facility] CO2 31 21 - 32 mmol/L LAB CHEMISTRY METHOD 07/03/2025 1:00 PM [facility] Anion Gap 6 3 - 11 LAB CHEMISTRY METHOD 07/03/2025 1:00 PM [facility] Glucose 74 70 - 100 mg/dL LAB CHEMISTRY METHOD 07/03/2025 1:00 PM [facility] BUN 15 5 - 25 mg/dL LAB CHEMISTRY METHOD 07/03/2025 1:00 PM [facility] Creatinine 0.72 0.50 - 1.10 mg/dL LAB CHEMISTRY METHOD 07/03/2025 1:00 PM [facility] eGFR 85 >=60 mL/min/1. 73m2 LAB CHEMISTRY METHOD 07/03/2025 1:00 PM [facility] Comment:Calculation based on the Chronic Kidney Disease Epidemiology Collaboration (CKD-EPI) equation refit without adjustment for race. BUN/Creatinine Ratio 20.8 LAB CHEMISTRY METHOD 07/03/2025 1:00 PM [facility] Calcium 9.4 8.5 - 10.5 mg/dL LAB CHEMISTRY METHOD 07/03/2025 1:00 PM [facility] Blood Venous blood specimen / Unknown Venipuncture / Unknown 07/03/2025 8:21 AM EDT 07/03/2025 11:55 AM EDT us Bruce Welch MD LAB BLOOD ORDERABLES Final Resul t [facility] [address] [place] [address], * (ABNORMAL) Complete blood count (07/03/2025 8:21 AM EDT) [facility] WBC 10.6 4.8 - 10.8 K/mcL LAB HEMETOLOGY METHOD 07/03/2025 1:24 PM EDT [facility] RBC 4.00 3.80 - 4.80 M/mcL LAB HEMETOLOGY METHOD 07/03/2025 1:24 PM EDT [facility] Hemoglobin 9.9(L) 11.5 - 16.0 g/dL LAB HEMETOLOGY [facility] Hematocrit 33.4(L) 35.0 - 47.0 % LAB HEMETOLOGY METHOD 07/03/2025 1:24 PM [facility] MCV 82.9 79.0 - 98.0 FL LAB HEMETOLOGY METHOD 07/03/2025 1[facility] MCH 24.6(L) 27.0 - 32.0 pcg LAB HEMETOLOGY METHOD 07/03/2025 1:24 PM [facility] MCHC 29.6(L) 32.0 - 37.0 g/dL LAB HEMETOLOGY METHOD 07/03/2025 1:24 PM [facility] RDW 16.0(H) 11.0 - 15.0 % LAB HEMETOLOGY METHOD 07/03/2025 1:24 PM T [facility] Platelets 419(H) 130 - 400 K/mcL LAB HEMETOLOGY METHOD 07/03/2025 1:24 PM [facility] MPV 10.6 7.0 - 11.0 FL LAB HEMETOLOGY METHOD 07/03/2025 1[facility] NRBC 0.0 <1.0 % LAB HEMETOLOGY METHOD 07/03/2025 1:24 PM EDT [facility] NRBC Absolute 0.00 <0.10 K/mcL LAB HEMETOLOGY METHOD 07/03/2025 1:24 PM EDT [facility] Blood Venous blood specimen / Unknown Venipuncture / Unknown 07/03/2025 8:21 AM EDT 07/03/2025 11:55 AM EDT Bruce Welch MD LAB BLOOD ORDERABLES Final Resul t [facility] [address] [place] [address], documented in this encounter Visit Diagnoses Diagnosis Type 2 diabetes mellitus without complications (CMS/HCC V24, CMS/HCC V28) Anemia, unspecified documented in this encounter Care Teams Category Director Relationship Specialty Start Date End Date Bruce Welch MD [address] [place] [address] [address] [place] [address] PCP - General Geriatric Medicine 06/19/25 documented as of this encounter
--- OUTSIDE RECORDS SUMMARY | 2025-08-16 12:48 | XMS_ITS | Encounter Summary ---
Author Organization [facility] Address [address] [place] [phone] Care Team Providers Care Renewable Energy Division Manager Name Role Phone Bruce Welch MD Primary Care Provider [phone] Encounter Details Date Type Department Care Team (Late st Contact Info) Description 04/21/2025 Lab Requisition [facility] - Main Lab 299 [facility] [place] [address] Bruce Welch MD [address] [place], [place] [phone] Vitamin D deficiency, unspecified; Essential (primary) hypertension; [...] as of this encounter Visit Diagnoses Diagnosis Vitamin D deficiency, unspecified Essential (primary) hypertension Unspecified essential hypertension Unspecified atrial fibrillation (CMS/HCC V24, CMS/HCC V28) Type 2 diabetes mellitus without complications (CMS/HCC V24, CMS/HCC V28) documented in this encounter Care Teams Renewable Energy Division Manager Relationship Specialty Start Date End Date Bruce Welch MD [address] [place], [place] [phone] PCP - General Geriatric Medicine 06/19/25 documented as of this encounter
--- OUTSIDE RECORDS SUMMARY | 2025-08-16 12:48 | XMS_ITS | Clinical Summary ---
Author Organization [facility] Address [address] [address] Phone Care Team Providers Care Drywall Metal Stud Worker Name Role Phone Trevor Rios MD Primary [...] Only [facility] [address] [place] [address] Homehealth, Interface ProviderMD from Last [...] REPLACEMENT [employer] [place] [employer] HMO REPLACEMENT MEDICARE HMO REPLACEMENT [employer] [place] [employer] REPLACEMENT [employer] [place] [employer] H[place] REPLACEMENT Advance Directives For more information, please contact: [phone] (9AM - 5PM [facility] Documents on File Type Date Recorded Patient Master [place] Mehrdad [facility] 08/05/2024 Care Teams Drywall Metal Stud Worker Relationship Specialty Start Date End Date Trevor Rios MD [address] [place] [id number] PCP - General Internal Medicine 09/02/24 Additional Source Comments The information contained in this document represents components of the legal health record. It is not the complete legal health record.[facility]
--- OUTSIDE RECORDS SUMMARY | 2025-08-16 12:48 | XMS_ITS | Encounter Summary ---
Author Organization [facility] Address [address] [place] [address] Care Team Providers Care Packing House Supervisor Name Role Phone Bruce Welch MD Primary Care Provider [phone] Encounter Details Date Type Department Care Team (Late st Contact Info) Description 07/08/2025 Lab Requisition [facility] - Main Lab [address] [facility] [place] [address] Bruce Welch MD [address] [place], [place] [id number] Type 2 diabetes mellitus without complications (CMS/HCC [...] Associated Diagnosis Comments COMPLETE BLOOD COUNT Routine 07/10/2025 9:59 AM EDT Type 2 diabetes mellitus without complications (CMS/HCC V24, CMS/HCC V28) Anemia, unspecified BASIC METABOLIC PANEL Routine 07/10/2025 9:59 AM EDT Type 2 diabetes mellitus without complications (CMS/HCC V24, CMS/HCC V28) Anemia, unspecified documented in this encounter Results * (ABNORMAL) Basic metabolic panel (07/10/2025 9:59 AM EDT) Sodium 137 133 - 145 mmol/L LAB CHEMISTRY METHOD 07/10/2025 4:12 PM [facility] Potassium 4.4 3.5 - 5.5 mmol/L LAB CHEMISTRY METHOD 07/10/2025 4:12 PM [facility] Chloride 103 96 - 110 mmol/L LAB CHEMISTRY METHOD 07/10/2025 4:12 PM [facility] CO2 26 21 - 32 mmol/L LAB CHEMISTRY METHOD 07/10/2025 4:12 PM [facility] Anion Gap 8 3 - 11 LAB CHEMISTRY METHOD 07/10/2025 4:12 PM [facility] Glucose 120(H) 70 - 100 mg/dL LAB CHEMISTRY METHOD 07/10/2025 4:12 PM [facility] BUN 20 5 - 25 mg/dL LAB CHEMISTRY METHOD 07/10/2025 4:12 PM [facility] Creatinine 0.69 0.50 - 1.10 mg/dL LAB CHEMISTRY METHOD 07/10/2025 4:12 PM [facility] eGFR 88 >=60 mL/min/1. 73m2 LAB CHEMISTRY METHOD 07/10/2025 4:12 PM [facility] Comment:Calculation based on the Chronic Kidney Disease Epidemiology Collaboration (CKD-EPI) equation refit without adjustment for race. BUN/Creatinine Ratio 29.0 LAB CHEMISTRY METHOD 07/10/2025 4:12 PM [facility] Calcium 9.7 8.5 - 10.5 mg/dL LAB CHEMISTRY METHOD 07/10/2025 4:12 PM [facility] Blood Venous blood specimen / Unknown Venipuncture / Unknown 07/10/2025 9:59 AM EDT 07/10/2025 10:51 AM EDT us Bruce Welch MD LAB BLOOD ORDERABLES Final Resul t [facility] [address] [place] [address], * (ABNORMAL) Complete blood count (07/10/2025 9:59 AM EDT) [facility] WBC 7.2 4.8 - 10.8 K/mcL LAB HEMETOLOGY METHOD 07/10/2025 1:30 PM EDT [facility] RBC 4.40 3.80 - 4.80 M/mcL LAB HEMETOLOGY METHOD 07/10/2025 1:30 PM EDT [facility] Hemoglobin 11.0(L) 11.5 - 16.0 g/dL LAB HEMETOLOGY METHOD [facility] Hematocrit 36.6 35.0 - 47.0 % LAB HEMETOLOGY METHOD 07/10/2025 1:[facility] MCV 82.4 79.0 - 98.0 FL LAB HEMETOLOGY METHOD 07/10/2025 1:30 [facility] MCH 24.8(L) 27.0 - 32.0 pcg LAB HEMETOLOGY METHOD 07/10/2025 1:30 [facility] MCHC 30.1(L) 32.0 - 37.0 g/dL LAB HEMETOLOGY METHOD 07/10/2025 1:30 [facility] RDW 15.5(H) 11.0 - 15.0 % LAB HEMETOLOGY METHOD 07/10/2025 1:30 PM EDT [facility] Platelets 451(H) 130 - 400 K/mcL LAB HEMETOLOGY METHOD 07/10/2025 1:30 [facility] MPV 10.8 7.0 - 11.0 FL LAB HEMETOLOGY METHOD 07/10/2025 1:30 [facility] NRBC 0.0 <1.0 % LAB HEMETOLOGY METHOD 07/10/2025 1:30 PM EDT [facility] NRBC Absolute 0.00 <0.10 K/mcL LAB HEMETOLOGY METHOD 07/10/2025 1:30 PM EDT [facility] Blood Venous blood specimen / Unknown Venipuncture / Unknown 07/10/2025 9:59 AM EDT 07/10/2025 10:51 AM EDT us Bruce Welch MD LAB BLOOD ORDERABLES Final Resul t [facility] [address] [place] [address], documented in this encounter Visit Diagnoses Diagnosis Type 2 diabetes mellitus without complications (CMS/HCC V24, CMS/HCC V28) Anemia, unspecified documented in this encounter Care Teams Packing House Supervisor Relationship Specialty Start Date End Date Bruce Welch MD [address] [place] [address] [address] [place] [address] PCP - General Geriatric Medicine 06/19/25 documented as of this encounter
--- OUTSIDE RECORDS SUMMARY | 2025-08-16 12:48 | XMS_ITS | Encounter Summary ---
Author Organization [facility] Address [address] [place] [address] Care Team Providers Care Ambulatory Care Coordinator Name Role Phone Bruce Welch MD Primary Care Provider [phone] Encounter Details Date Type Department Care Team (Late st Contact Info) Description 04/16/2025 Lab Requisition [facility] - Main Lab [address] [facility] [place] [address] Bruce Welch MD [address] [place], [place] [id number] Vitamin D deficiency, unspecified; Essential (primary) hypertension; [...] 2 diabetes mellitus without complications (CMS/HCC V24, CMS/[facility] V28) documented in this encounter Results * Basic metabolic panel (04/18/2025 6:41 AM EDT) Sodium 138 133 - 145 mmol/L LAB CHEMISTRY METHOD 04/18/2025 12:48 PM [facility] Potassium 4.5 3.5 - 5.5 mmol/L LAB CHEMISTRY METHOD 04/18/2025 12:48 PM [facility] Chloride 102 96 - 110 mmol/L LAB CHEMISTRY METHOD 04/18/2025 12:48 PM [facility] CO2 26 21 - 32 mmol/L LAB CHEMISTRY METHOD 04/18/2025 12:48 PM [facility] Anion Gap 10 3 - 11 LAB CHEMISTRY METHOD 04/18/2025 12:48 PM [facility] Glucose 73 70 - 100 mg/dL LAB CHEMISTRY METHOD 04/18/2025 12:48 PM [facility] BUN 16 5 - 25 mg/dL LAB CHEMISTRY METHOD 04/18/2025 12:48 PM [facility] Creatinine 0.68 0.50 - 1.10 mg/dL LAB CHEMISTRY METHOD 04/18/2025 12:48 PM [facility] eGFR 89 >=60 mL/min/1. 73m2 LAB CHEMISTRY METHOD 04/18/2025 12:48 PM [facility] Comment:Calculation based on the Chronic Kidney Disease Epidemiology Collaboration (CKD-EPI) equation refit without adjustment for race. BUN/Creatinine Ratio 23.5 LAB CHEMISTRY METHOD 04/18/2025 12:48 PM [facility] Calcium 9.2 8.5 - 10.5 mg/dL LAB CHEMISTRY METHOD 04/18/2025 12:48 PM [facility] Blood Venous blood specimen / Unknown Venipuncture / Unknown 04/18/2025 6:41 AM EDT 04/18/2025 10:47 AM EDT us Bruce Welch MD LAB BLOOD ORDERABLES Final Resul t [facility] [address] [place] [address], [place] [phone] * (ABNORMAL) Complete blood count (04/18/2025 6:41 AM EDT) WBC 8.4 4.8 - 10.8 K/mcL LAB HEMETOLOGY METHOD 04/18/2025 12:24 PM EDT [facility] RBC 3.60(L) 3.80 - 4.80 M/mcL LAB HEMETOLOGY METHOD 04/18/2025 12:24 PM EDT [facility] Hemoglobin 8.7(L) 11.5 - 16.0 g/dL LAB HEMETOLOGY METHOD 04/18/2025 12:24 PM EDT [facility] Hematocrit 29.8(L) 35.0 - 47.0 % LAB HEMETOLOGY METHOD 04/18/2025 12:24 PM EDT [facility] MCV 83.7 79.0 - 98.0 FL LAB HEMETOLOGY METHOD 04/18/2025 12:24 PM EDT [facility] MCH 24.4(L) 27.0 - 32.0 pcg LAB HEMETOLOGY METHOD 04/18/2025 12:24 PM EDT [facility] MCHC 29.2(L) 32.0 - 37.0 g/dL LAB HEMETOLOGY METHOD 04/18/2025 12:24 PM EDT [facility] RDW 15.3(H) 11.0 - 15.0 % LAB HEMETOLOGY METHOD 04/18/2025 12:24 PM EDT [facility] Platelets 411(H) 130 - 400 K/mcL LAB HEMETOLOGY METHOD 04/18/2025 12:24 PM EDT [facility] MPV 11.1(H) 7.0 - 11.0 FL LAB HEMETOLOGY METHOD 04/18/2025 12:24 PM EDT [facility] NRBC 0.0 <1.0 % LAB HEMETOLOGY METHOD 04/18/2025 12:24 PM EDT [facility] NRBC Absolute 0.00 <0.10 K/mcL [facility] 04/18/2025 12:24 PM EDT [facility] Blood Venous blood specimen / Unknown Venipuncture / Unknown 04/18/2025 6:41 AM EDT 04/18/2025 10:47 AM EDT Bruce Welch MD LAB BLOOD ORDERABLES Final Resul t [facility] [address] [place] [address], documented in this encounter Visit Diagnoses Diagnosis Vitamin D deficiency, unspecified Essential (primary) hypertension Unspecified essential hypertension Unspecified atrial fibrillation (CMS/HCC V24, CMS/HCC V28) Type 2 diabetes mellitus without complications (CMS/HCC V24, CMS/HCC V28) documented in this encounter Care Teams Ambulatory Care Coordinator Relationship Specialty Start Date End Date Bruce Welch MD [address] [place] [address] [address] [place] [address] PCP - General Geriatric Medicine 06/19/25 documented as of this encounter
--- OUTSIDE RECORDS SUMMARY | 2025-08-16 12:48 | XMS_ITS | Clinical Summary ---
Author Organization [facility] Address [address] [place] [address] Care Team Providers Care Construction Driller Name Role Phone Allen Cortés MD Primary Care Provider [phone] Allergies No known active allergies Medications ezetimibe [...] Years Used Date Smoking Tobacco: Never Assessed [facility] Utilities Answer Date Recorded In [...] place to sleep or slept in a care home (including now)? No 06/27/2024 Comments Unknown [...] Health Maintenance Due Date Last Done Comments Advance Care Planning 1945 Hepatitis C Virus Screening 1945 Microalbumin/Creatinine Rati o Urine 1963 DTaP/Tdap/Td Vaccines (1 - Tdap) 1964 Pneumococcal Vaccines 50+ (1 of 1 - PCV) 1995 Zoster (Shingles) Vaccine (1 of 2) 1995 DXA Bone Density (Females,Ag es 65 and older) 2010 RSV Vaccine 60 years and old er and Patients (1 - 1-dose 75+ series) 2020 Influenza Vaccine 06/23/2025 COVID-19 Vaccine (2 - 2024-2 6 season) 2025 09/12/2021 Hemoglobin A1C Discontinued 06/27/2024 Lipid Panel Discontinued 06/27/2024 Hepatitis B Vaccines Aged Out No long er eligible based on patient's age to complete this topic Procedures Procedure Name Priority Date/Time Associated Diagnosis Comments HEMOGLOBIN A1C WITH ESTIMATED AVERAGE GLUCOSE Routine 06/27/2024 8:21 AM EDT LIPID PANEL Routine 06/27/2024 8:21 AM EDT from Last 3 Months or Most Recently Relevant to Health Maintenance Results * (ABNORMAL) Hemoglobin A1c with Estimated Average Glucose (06/27/2024 8:21 AM EDT) Hemoglobin A1C 7.0(H) <5.7 % 06/27/2024 9:07 AM [facility] Comment: A1c% Interpretation 5.7 - 6.0 Increase risk of diabetes 6.1 - 6.4 Higher risk of diabetes > or = 6.5 Consistent with diabetes Diabetes Care, 33(Supp 1):S1-S61, 2010 Estimated Average Glucose 154 mg/dL 06/27/2024 9:07 AM [facility] Blood Blood specimen / Unknown 06/27/2024 8:21 AM EDT 06/27/2024 8:32 AM EDT Paul Ospina MD LAB BLOOD ORDERAB[place] [address], [place] [address] * (ABNORMAL) Lipid Panel (06/27/2024 8:21 AM EDT) Cholesterol, Total 141 <200 mg/dL 2023 9:18 AM [facility] Triglycerides 169(H) <150 mg/dL 06/27/2024 9:18 AM [facility] Cholesterol, HDL 58 >39 mg/dL 06/27/20 9:18 AM [facility] Estimated LDL 49 <130 mg/dL 06/27/2024 9:18 AM [facility] Comment: NCEP Guidelines: < 100 mg/dL Optimal 100 - 129 mg/dL Near Optimal/Above Optimal 130 - 159 mg/dL Borderline High 160 - 189 mg/dL High >/= 190 mg/dL Very High Cholesterol/HDL Ratio 2.4 0.0 - 5.0 Ratio 06/27/2024 9:18 AM [facility] Comment: Relative Risk Ratio - Male Ratio - Female 0.5 3.4 3.3 1.0 5.0 4.4 2.0 9.6 7.1 3.0 23.4 11.0 Blood (Plasma/Serum) 06/27/2024 8:21 AM EDT 06/27/2024 8:32 AM EDT Paul Ospina MD LAB BLOOD ORDERABLES Final Result [address] [address], [address] [address] from Last 3 Months or Most Recently Relevant to Health Maintenance Insurance MEDICARE PART A & B [facility] MEDICARE Advance Directives * DNR (Latest Code Status on File) Date Activated Date Inactivated Comments 06/27/2024 4:12 PM Question Answer Comments Decision thoroughly discussed with: Gail ent arrived with valid State [place] DNR Transfer form * Full Code Date Activated Date Inactivated Comments 06/26/2024 8:41 PM 06/27/2024 4:12 PM Care Teams Construction Driller Relationship Specialty Start Date End Date Allen Cortés MD [address] [place] [id number] PCP - General 06/26/24
--- OUTSIDE RECORDS SUMMARY | 2025-08-16 12:48 | XMS_ITS | Encounter Summary ---
Author Organization [facility] Address [address] [place] [id number] Care Team Providers Care Spray Booth Operator Name Role Phone Bruce Welch MD Primary Care Provider [phone] Encounter Details Date Type Department Care Team (Late st Contact Info) Description 06/19/2025 Lab Requisition [facility] - Main Lab [address] [facility] [place] [address] Bruce Welhc MD [address] [place], [place] [id number] Anemia, unspecified; Type 2 diabetes mellitus without complications (CMS/HCC V24, CMS/HCC V28); Hyperlipidemia, unspecified; Hypothyroidism, unspecified; Magnesium deficiency; Vitamin B12 deficiency anemia, unspecified; Vitamin D deficiency, unspecified Social History Tobacco Use Types Packs/Day [...] Procedure Name Priority Date/Time Associated Diagnosis Comments THYROID STIMULATING HORMONE WITH REFLEX TO FREE T4 AND FREE T3 Routine 06/19/2025 5:26 AM EDT Anemia, unspecified Type 2 diabetes mellitus without complications (CMS/HCC V24, CMS/HCC V28) Hyperlipidemia, unspecified Hypothyroidism, unspecified Magnesium deficiency Vitamin B12 deficiency anemia, unspecified Vitamin D deficiency, unspecified FREE THYROXINE WITH REFLEX TO FREE TRIIODOTHYRONINE Routine 06/19/2025 5:26 AM EDT Anemia, unspecified Type 2 diabetes mellitus without complications (CMS/HCC V24, CMS/HCC V28) Hyperlipidemia, unspecified Hypothyroidism, unspecified Magnesium deficiency Vitamin B12 deficiency anemia, unspecified Vitamin D deficiency, unspecified VITAMIN B12 AND FOLATE Routine 5:26 AM EDT Anemia, unspecified Type 2 diabetes mellitus without complications ([facility] V24, [facility] V28) Hyperlipidemia, unspecified Hypothyroidism, unspecified Magnesium deficiency Vitamin B12 deficiency anemia, unspecified Vitamin D deficiency, unspecified LIPID PANEL WITH REFLEX TO DIRECT LDL Routine 06/19/2025 5:26 AM EDT Anemia, unspecified Type 2 diabetes mellitus without complications ([facility] V24, [facility] V28) Hyperlipidemia, unspecified Hypothyroidism, unspecified Magnesium deficiency Vitamin B12 deficiency anemia, unspecified Vitamin D deficiency, unspecified VITAMIN D 25 HYDROXY Routine 06/19/2025 5:26 AM EDT Anemia, unspecified Type 2 diabetes mellitus without complications ([facility] V24, [facility] V28) Hyperlipidemia, unspecified Hypothyroidism, unspecified Magnesium deficiency Vitamin B12 deficiency anemia, unspecified Vitamin D deficiency, unspecified COMPLETE BLOOD COUNT Routine 06/19/2025 5:26 AM EDT Anemia, unspecified Type 2 diabetes mellitus without complications ([facility] V24, [facility] V28) Hyperlipidemia, unspecified Hypothyroidism, unspecified Magnesium deficiency Vitamin B12 deficiency anemia, unspecified Vitamin D deficiency, unspecified TRIIODOTHYRONINE FREE Routine 06/19/2025 5:26 AM EDT Anemia, unspecified Type 2 diabetes mellitus without complications ([facility] V24, [facility] V28) Hyperlipidemia, unspecified Hypothyroidism, unspecified Magnesium deficiency Vitamin B12 deficiency anemia, unspecified Vitamin D deficiency, unspecified MAGNESIUM Routine 06/19/2025 5:26 AM EDT Anemia, unspecified Type 2 diabetes mellitus without complications ([facility] V24, [facility] V28) Hyperlipidemia, unspecified Hypothyroidism, unspecified Magnesium deficiency Vitamin B12 deficiency anemia, unspecified Vitamin D deficiency, unspecified COMPREHENSIVE METABOLIC PANEL Routine 06/19/2025 5:26 AM EDT Anemia, unspecified Type 2 diabetes mellitus without complications ([facility] V24, [facility] V28) Hyperlipidemia, unspecified Hypothyroidism, unspecified Magnesium deficiency Vitamin B12 deficiency anemia, unspecified Vitamin D deficiency, unspecified documented in this encounter Results * (ABNORMAL) Triiodothyronine free (06/19/2025 5:26 AM EDT) T3, Free 193(L) 230 - 420 pcg/dL LAB CHEMISTRY METHOD 06/19/2025 7:36 PM EDT [facility] Blood Venous blood specimen / Unknown Venipuncture / Unknown 06/19/2025 5:26 AM EDT 06/19/2025 10:47 AM EDT us Bruce Welch MD LAB BLOOD ORDERABLES Final Resul t Performing Organization Address City/[facility]/ZIP Co de Phone Number [facility] [address] [place] [address], [place] [phone] * Free thyroxine with reflex to free triiodothyronine (06/19/2025 5:26 AM EDT) Free T4 1.40 0.70 - 1.80 ng/dL LAB CHEMISTRY METHOD 06/19/2025 6:04 PM EDT [facility] Blood Venous blood specimen / Unknown Venipuncture / Unknown 06/19/2025 5:26 AM EDT 06/19/2025 10:47 AM EDT us Bruce Welch MD LAB BLOOD ORDERABLES Final Resul t Performing Organization Address City/[facility]/ZIP Co de Phone Number [facility] [address] [place] [address], [place] [phone] * Vitamin D 25 hydroxy (06/19/2025 5:26 AM EDT) Vit D, 25-Hydroxy 72.3 30.0 - 80.0 ng/mL LAB CHEMISTRY METHOD 06/19/2025 1:24 PM EDT [facility] Blood Venous blood specimen / Unknown Venipuncture / Unknown 06/19/2025 5:26 AM EDT 06/19/2025 10:47 AM EDT us Bruce Welch MD LAB BLOOD ORDERABLES Final Resul t Performing Organization Address City/[facility] Co de Phone Number [facility] [address] [place] [address], [place] [phone] * Vitamin B12 and folate (06/19/2025 5:26 AM EDT) Vitamin B-12 774 250 - 900 pcg/mL LAB CHEMISTRY METHOD 06/19/2025 11:51 AM EDT [facility] Folate 6.4 2.8 - 17.0 ng/ml LAB CHEMISTRY METHOD 06/19/2025 11:51 AM EDT [facility] Blood Venous blood specimen / Unknown Venipuncture / Unknown 06/19/2025 5:26 AM EDT 06/19/2025 10:47 AM EDT us Bruce Welch MD LAB BLOOD ORDERABLES Final Resul t Performing Organization Address [facility]/ZIP Co de Phone Number [facility] [address] [place] [address], [place] [phone] * (ABNORMAL) Magnesium (06/19/2025 5:26 AM EDT) Magnesium 1.7(L) 1.9 - 2.6 mg/dL LAB CHEMISTRY METHOD 06/19/2025 11:29 AM EDT [facility] Blood Venous blood specimen / Unknown Venipuncture / Unknown 06/19/2025 5:26 AM EDT 06/19/2025 10:47 AM EDT us Bruce Welch MD LAB BLOOD ORDERABLES Final Resul t [facility] [address] [place] [address], [place] [phone] * (ABNORMAL) Thyroid stimulating hormone with reflex to free t4 and free t3 (06/19/2025 5:26 AM EDT) [facility] TSH 0.05(L) 0.40 - 4.00 mcIU/mL LAB CHEMISTRY METHOD 06/19/2025 5:27 PM EDT [facility] Blood Venous blood specimen / Unknown Venipuncture / Unknown 06/19/2025 5:26 AM EDT 06/19/2025 10:47 AM EDT us Bruce Welch MD LAB BLOOD ORDERABLES Final Resul t [facility] [address] [place] [address], [place] [phone] * Lipid panel with reflex to direct LDL (06/19/2025 5:26 AM EDT) [facility] Cholesterol 116 0 - 200 mg/dL LAB CHEMISTRY METHOD 06/19/2025 11:51 AM EDT [facility] Triglycerides 72 0 - 150 mg/dL LAB CHEMISTRY METHOD 06/19/2025 11:51 AM EDT [facility] HDL 58 >=40 mg/dL LAB CHEMISTRY METHOD 06/19/2025 11:51 AM EDT [facility] LDL Calculated 44 0 - 100 mg/dL LAB CHEMISTRY METHOD 06/19/2025 11:51 AM EDT [facility] VLDL Cholesterol Apolinar 14.4 mg/dL LAB CHEMISTRY METHOD 06/19/2025 11:51 AM EDT [facility] Non HDL Chol. (LDL+VLDL) 58 <145 mg/dL LAB CHEMISTRY METHOD 06/19/2025 11:51 AM [facility] Chol/HDL Ratio 2.0 0.0 - 4.4 LAB CHEMISTRY METHOD 06/19/2025 11:51 AM [facility] Blood Venous blood specimen / Unknown Venipuncture / Unknown 06/19/2025 5:26 AM EDT 06/19/2025 10:47 AM EDT us Bruce Welch MD LAB BLOOD ORDERABLES Final Resul t [facility] [address] [place] [address], * (ABNORMAL) Comprehensive metabolic panel (06/19/2025 5:26 AM EDT) Sodium 139 133 - 145 mmol/L LAB CHEMISTRY METHOD 06/19/2025 11:51 AM [facility] Potassium 3.9 3.5 - 5.5 mmol/L LAB CHEMISTRY METHOD 06/19/2025 11:51 AM [facility] Chloride 104 96 - 110 mmol/L LAB CHEMISTRY METHOD 06/19/2025 11:51 AM [facility] CO2 27 21 - 32 mmol/L LAB CHEMISTRY METHOD 06/19/2025 11:51 AM [facility] Anion Gap 8 3 - 11 LAB CHEMISTRY METHOD 06/19/2025 11:51 AM [facility] Glucose 70 70 - 100 mg/dL LAB CHEMISTRY METHOD 06/19/2025 11:51 AM [facility] BUN 27(H) 5 - 25 mg/dL LAB CHEMISTRY METHOD 06/19/2025 11:51 AM [facility] Creatinine 0.91 0.50 - 1.10 mg/dL LAB CHEMISTRY METHOD 06/19/2025 11:51 AM [facility] eGFR 64 >=60 mL/min/1. 73m2 LAB CHEMISTRY METHOD 06/19/2025 11:51 AM [facility] Comment:Calculation based on the Chronic Kidney Disease Epidemiology Collaboration (CKD-EPI) equation refit without adjustment for race. BUN/Creatinine Ratio 29.7 LAB CHEMISTRY METHOD 06/19/2025 11:51 AM [facility] Calcium 9.3 8.5 - 10.5 mg/dL LAB CHEMISTRY METHOD 06/19/2025 11:51 AM [facility] AST (SGOT) 22 10 - 42 unit/L LAB CHEMISTRY METHOD 06/19/2025 11:51 AM [facility] ALT (SGPT) 26 10 - 60 unit/L LAB CHEMISTRY METHOD 06/19/2025 11:51 AM [facility] Alkaline Phosphatase 158(H) 42 - 121 unit/L LAB CHEMISTRY METHOD 06/19/2025 11:51 AM [facility] Total Protein 5.8(L) 6.0 - 8.0 g/dL LAB CHEMISTRY METHOD 06/19/2025 11:51 AM [facility] Albumin 2.8(L) 3.2 - 5.0 g/dL LAB CHEMISTRY METHOD 06/19/2025 11:51 AM [facility] Total Bilirubin 0.5 0.0 - 1.4 mg/dL LAB CHEMISTRY METHOD 06/19/2025 11:51 AM [facility] Blood Venous blood specimen / Unknown Venipuncture / Unknown 06/19/2025 5:26 AM EDT 06/19/2025 10:47 AM EDT us Bruce Welch MD LAB BLOOD ORDERABLES Final Resul t [facility] [address] [place] [address], * (ABNORMAL) Complete blood count (06/19/2025 5:26 AM EDT) [facility] WBC 8.4 4.8 - 10.8 K/mcL LAB HEMETOLOGY METHOD 06/19/2025 11:23 AM [facility] RBC 4.40 3.80 - 4.80 M/mcL LAB HEMETOLOGY METHOD 06/19/2025 11:23 AM [facility] Hemoglobin 11.0(L) 11.5 - 16.0 g/dL LAB HEMETOLOGY METHOD 06/19/2025 11:23 AM [facility] Hematocrit 36.2 35.0 - 47.0 % LAB HEMETOLOGY METHOD 06/19/2025 11:23 AM [facility] MCV 83.0 79.0 - 98.0 FL LAB HEMETOLOGY METHOD 06/19/2025 11:23 AM [facility] MCH 25.2(L) 27.0 - 32.0 pcg LAB HEMETOLOGY METHOD 06/19/2025 11:23 AM [facility] MCHC 30.4(L) 32.0 - 37.0 g/dL LAB HEMETOLOGY METHOD 06/19/2025 11:23 AM [facility] RDW 17.2(H) 11.0 - 15.0 % LAB HEMETOLOGY METHOD 06/19/2025 11:23 AM [facility] Platelets 254 130 - 400 K/mcL LAB HEMETOLOGY METHOD 06/19/2025 11:23 AM [facility] MPV 11.4(H) 7.0 - 11.0 FL LAB HEMETOLOGY METHOD 06/19/2025 11:23 AM [facility] NRBC 0.0 <1.0 % LAB HEMETOLOGY METHOD 06/19/2025 11:23 AM [facility] NRBC Absolute 0.00 <0.10 [facility] LAB HEMETOLOGY METHOD 06/19/2025 11:23 AM EDT [facility] Blood Venous blood specimen / Unknown Venipuncture / Unknown 06/19/2025 5:26 AM EDT 06/19/2025 10:47 AM EDT Bruce Welch MD LAB BLOOD ORDERABLES Final Resul t [facility] [address] [place] [address], documented in this encounter Visit Diagnoses Diagnosis Anemia, unspecified Type 2 diabetes mellitus without complications (CMS/HCC V24, CMS/HCC V28) Hyperlipidemia, unspecified Hypothyroidism, unspecified Magnesium deficiency Disorders of magnesium metabolism Vitamin B12 deficiency anemia, unspecified Vitamin D deficiency, unspecified documented in this encounter Care Teams Spray Booth Operator Relationship Specialty Start Date End Date Bruce Welch MD [address] [place] [address] [address] [place] [address] PCP - General Geriatric Medicine 06/19/25 documented as of this encounter
--- OUTSIDE RECORDS SUMMARY | 2025-08-16 12:48 | XMS_ITS | Patient Health Record ---
Author Organization [facility] Address [address] [place] [address] Care Team Providers Care Before School Name Role Phone Milana NATARAJAN, Allen Primary Care Provider Desire Arias Unavailable [phone] Allergies No Known Allergies Reason For Referral [...] Problem Acquired hammer toe of right foot (0558427812380747 ) Other hammer toe(s) (acquired), right foot (M20.41) Active confirmed Problem Acquired hammer toe of left foot (3593510751071272 ) Other hammer toe(s) (acquired), left foot (M20.42) Active confirmed Problem Acquired hammer toe of left foot (2991253441329392 ) Hammer toe of left foot (M20.42) Active confirmed Problem Polyneuropathy due to type 2 diabetes mellitus (965127863) 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.42) Active confirmed Problem Localized, primary osteoarthritis of the ankle and/or foot (639361425) Osteoarthritis of left ankle and foot (M19.072) Active confirmed Plan Of Treatment Pending Test Test Name Order Date [id number] NAIL, 6 OR MORE 01/23/2015 30985-Zftmorgc Plate 01/23/2015 94365-Sfkwiixo Plate Each Additional 01/2015 30797-XBMK SKIN LESIONS, OVER 4 01/24/20 15 Insurance Providers Payer Name Payer Address Payer Phone Subscriber Number Group Number Insured Name Patient Relationship to Insured Coverage Start Date Coverage End Date [employer] [facility] [address] [place] [address] [id number] Naty Cervantes Self - patient is the [...]
--- OUTSIDE RECORDS SUMMARY | 2025-08-16 12:48 | XMS_ITS ---
Author Organization [facility] Care Team Providers Care Internal Control Specialist Name Role Phone Surjit Cordoba Unavailable Unavailable Desire Mcmillan Unavailable Unavailable Allergies and adverse reactions Code CodeSystem Substance Reaction Severity StartDate Concern Status 24259 RXNORM traMADol Anaphylaxis (co de- 73450847, SNOMED CT) Moderate 10/12/2023 active 7804 RXNORM oxyCODONE Anaphylaxis (co de- 51523136, SNOMED CT) Moderate 10/12/2023 active 4603 RXNORM Furosemide Anaphylaxis (co de- 07630179, SNOMED CT) Moderate 10/12/2023 active Augmentin Anaphylaxis (co de- 89669156, SNOMED CT) Moderate 10/12/2023 active 723 RXNORM Amoxicillin Moderate 10/12/2023 active 161 RXNORM Acetaminophen Moderate 10/12/2023 active Latex Anaphylaxis (co de- 48306403, SNOMED CT) Moderate 10/12/2023 active Care Team Name Role Address Phone Organization Conor Cordoba PCP [address], [address], [place] (Office): [phone] (Fax): [phone] [facility] 10/13/2023 - 10/22/2023 Desire Mcmillan [address] [place] [address], [address], [facility] 10/13/2023 - 10/22/2023 Immunizations Immunization Status Vaccine Details Vaccine Code CodeSystem Date Notes Influenza completed Influenza, high-dose, split virus, quadrivalent, injectable, preservative free 197 CVX created date: 10/13/2023 administere d date: 09/12/2023 Prevnar 13 completed pneumococcal conjugate vaccine, 13 valent 133 CVX created date: 10/13/2023 administere d date: 02/27/2016 DTAP completed Diphtheria, teta nus toxoids and acellular pertussis vaccine, and poliovirus vaccine, inactivated 130 CVX created date: 10/13/2023 administere d date: 09/04/2016 [id number] completed pneumococcal polysaccharide vaccine, 23 valent 33 CVX created date: 10/13/2023 administere d date: 01/31/2022 [id number] completed pneumococcal polysaccharide vaccine, 23 valent 33 CVX created date: 10/13/2023 administere d date: 04/04/2006 Herpes Zoster (shingles) completed varicella zoster immune globulin 36 CVX created date: 10/13/2023 administere d date: 12/10/2013 COVID-19 Vaccine Dose 1 completed unknown vaccine or immune globulin Mfg: Moderna 999 CVX created date: 10/13/2023 administere d date: 12/26/2020 COVID-19 Vaccine Dose 2 completed unknown vaccine or immune globulin Mfg: Moderna 999 CVX created date: 10/13/2023 administere d date: 01/22/2021 COVID-19 Vaccine Single Dose completed unknown vaccine or immune globulin Mfg: moderna bivalent 999 CVX created date: 10/13/2023 administere d date: 08/18/2022 COVID-19 Vaccine Single Dose completed unknown vaccine or immune globulin Mfg: moderna booster 1 999 CVX created date: 10/13/2023 administere d date: 09/17/2021 Mental Status Section Date Assessment Total Score Description 10/22/2023 BIMS 15 cognitively int act CAM 0 No delirium ind icated PHQ-9 01 minimal depress ion 10/19/2023 BIMS 15 cognitively int act CAM 0 No delirium ind icated PHQ-9 01 minimal depress ion Problems Problem # Description Date of onset Resolved Date Code CodeSystem Concern Status 1 ANXIETY DISORDER, UNSPECIFIED [address] active 2 CONSTIPATION, UNSPECIFIED [address] active 3 ELEVATED WHITE BLOOD CELL COUNT, UNSPECIFIED [address] active 4 ESSENTIAL (PRIMARY) HYPERTENSION [address] active 5 HYPERLIPIDEMIA, UNSPECIFIED [address] active 6 HYPOTHYROIDISM, UNSPECIFIED [address] active 7 MORBID (SEVERE) OBESITY DUE TO EXCESS CALORIES [address] active 8 OTHER MUSCLE SPASM [address] active 9 PERSONAL HISTORY OF OTHER VENOUS THROMBOSIS AND EMBOLISM [address] active 10 SYNOVIAL CYST OF POPLITEAL SPACE [HEARN], LEFT KNEE [address] active 11 TYPE 2 DIABETES MELLITUS WITH HYPERGLYCEMIA [address] active 12 UNILATERAL PRIMARY OSTEOARTHRITIS, RIGHT HIP [address] active 13 VITAMIN D DEFICIENCY, UNSPECIFIED [address] active 14 MUSCLE WEAKNESS (GENERALIZED) [address] active 15 UNSPECIFIED ABNORMALITIES OF GAIT AND MOBILITY [address] active Reason for Referral No Reasons for Referral Entered Social History Social History Observation Description Start Date End Date Code Code System Current Smoking Status Tobacco smoking consumption unknown 783982130 SNOMED CT Sex Assigned At Female 1945 [address]-7 [facility] Gender Identity Sexual Orientation Vital Signs Code Code System Vitals Name Values and Units Timing Information 93593-2 LOINC Pain Level Value=0.0 10/22/2023 2339-0 LOINC Blood Sugar Value=94.0 Units=mg/dL 10/22/2023 9279-1 LOINC Respiratory Rate Value=16.0 Units=/m in 10/19/2023 8462-4 LOINC Blood Pressure-Diastolic Value=63 Un its=mmHg 10/19/2023 8480-6 [facility] Blood Pressure-Systolic Imddd=150 Un its=mmHg 10/19/2023 8310-5 [facility] Body Temperature Value=97.7 Units= F 10/19/2023 8867-4 [facility] Heart rate Value=70.0 Units=/min 91684-4 [facility] O2 % BldC Oximetry Value=97.0 Units= % 10/19/2023 19689-0 [facility] Weight Wuvyr=076.2 Units=Lbs 8302-2 [facility] Height Value=61.0 Units=Inches 10/15/2023
--- OUTSIDE RECORDS SUMMARY | 2025-08-16 12:48 | XMS_ITS | Clinical Summary ---
Author Organization [address] Address [address] [place] [phone] Phone Care Team Providers Care [employer] Manager Name Role Phone Bruce Welch MD Primary Care Provider [phone] Encounters Date Type Department Care Team Description 07/14/2025 Lab Requisition [facility] - Main Lab [address] [place] [phone] Bruce Welch MD Type 2 diabetes mellitus without complications ([facility] V24, CMS/[facility] V28); Anemia, unspecified 07/08/2025 Lab Requisition [facility] Lab [address] [facility] [employer] [place] [phone] Bruce Welch MD Type 2 diabetes mellitus without complications (CMS/[facility] V24, CMS/[facility] V28); Anemia, unspecified 07/05/2025 Lab Requisition [facility] Lab [address] [facility] [employer] [place] [phone] Bruce Welch MD Essential (primary) hypertension; Hypomagnesemia 06/30/2025 Lab Requisition [facility] Main Lab [address] [facility] [employer] [place] [phone] Bruce Welch MD Type 2 diabetes mellitus without complications (CMS/HCC V24, CMS/[facility] V28); Anemia, unspecified 06/24/2025 Lab Requisition [facility] Main Lab [address] [facility] [employer] [place] [phone] Bruce Welch MD Type 2 diabetes mellitus without complications (CMS/HCC V24, CMS/[facility] V28); Anemia, unspecified 06/19/2025 Lab Requisition [facility] - Main Lab [address] [facility] [place] [phone] Bruce Welch MD Anemia, unspecified; Type 2 diabetes mellitus without complications ([facility] V24, [facility] V28); Hyperlipidemia, unspecified; Hypothyroidism, unspecified; Magnesium deficiency; Vitamin B12 deficiency anemia, unspecified; Vitamin D deficiency, unspecified from Last 3 Months Social History Tobacco Use Types Packs/Day Years Used Date Smoking Tobacco: Never Assessed Comments Unknown Sex and Gender Information Value Date Recorded Sex Assigned at Not on file Legal Sex Female 3:06 PM EST Gender Identity Not on file Sexual Orientation Not on file Plan of Treatment Health Maintenance Due Date Last Done Comments Diabetes: Annual Foot Exam 1955 Diabetes: Annual Retina Eye Exam 1955 DTaP,Tdap,and Td Vaccines (1 - Tdap) 1964 Zoster Vaccines (1 of 2) 1995 RSV Immunization Adult Patients (1 - 1-dose 75+ series) 2020 Falls Risk Assessment 06/14/2024 Hepatitis C Screening 06/14/2024 Medicare Annual Wellness Visit 06/14/2024 Osteoporosis Screening (Bone Density Screening) 06/14/2024 Social Influencers of Health Screening 06/14/2024 Depression Screening 11/23/2024 Diabetes: Annual Urine Albumin-Creatinine Ratio (uACR) 04/08/2025 COVID-19 Vaccine ( season) 2025 08/18/2022, 09/17/2021, 01/22/2021, Additional history exists Influenza Vaccine (#1) 2025 08/24/2024 Diabetes: Blood Sugar Control Test (HGBA1C) 10/11/2025 04/10/2025, 06/27/2024 Diabetes: Annual GFR (Glomerular Filtration Rate) 07/10/2026 07/10/2025, 07/05/2025, 07/03/2025, Additional history exists Hypertension/CHF/CAD Annual BMP Blood Test 07/10/2026 07/10/2025, 07/05/2025, 07/03/2025, Additional history exists Cholesterol Screening (Lipid Panel) 06/19/2030 06/19/2025, 04/10/2025, 06/27/2024 Pneumococcal Vaccine: 50+ Years Completed 01/31/2022, 04/04/2016, 02/27/2016 HIB Vaccines Aged Out No longer eligi [...] age to complete this topic Meningococcal B Vaccine Aged Out No l onger eligible based on patient's age to complete this topic RSV Immunization Patients Under 20 months Aged Out No longer eligible based on patient's age to complete this topic Varicella Vaccines Aged Out No longer eligible based on patient's age to complete this topic Procedures Procedure Name Priority Date/Time Associated Diagnosis Comments BASIC METABOLIC PANEL Routine 07/10/2025 9:59 AM EDT Type 2 diabetes mellitus without complications (CMS/HCC V24, CMS/HCC V28) Anemia, unspecified COMPLETE BLOOD COUNT Routine 07/10/2025 9:59 AM EDT Type 2 diabetes mellitus without complications (CMS/HCC V24, CMS/HCC V28) Anemia, unspecified MAGNESIUM Routine 07/05/2025 6:12 AM EDT Essential (primary) hypertension Hypomagnesemia BASIC METABOLIC PANEL Routine 07/05/2025 6:12 AM EDT Essential (primary) hypertension Hypomagnesemia COMPLETE BLOOD COUNT Routine 07/05/2025 6:12 AM EDT Essential (primary) hypertension Hypomagnesemia BASIC METABOLIC PANEL Routine 07/03/2025 8:21 AM EDT Type 2 diabetes mellitus without complications (CMS/HCC V24, [facility] V28) Anemia, unspecified COMPLETE BLOOD COUNT Routine 07/03/2025 8:21 AM EDT Type 2 diabetes mellitus without complications ([facility] V24, [facility] V28) Anemia, unspecified BASIC METABOLIC PANEL Routine 06/26/2025 10:03 AM EDT Type 2 diabetes mellitus without complications ([facility] V24, [facility] V28) Anemia, unspecified COMPLETE BLOOD COUNT Routine 06/26/2025 10:03 AM EDT Type 2 diabetes mellitus without complications ([facility] V24, [facility] V28) Anemia, unspecified TRIIODOTHYRONINE FREE Routine 06/19/2025 5:26 AM EDT Anemia, unspecified Type 2 diabetes mellitus without complications ([facility] V24, [facility] V28) Hyperlipidemia, unspecified Hypothyroidism, unspecified Magnesium deficiency Vitamin B12 deficiency anemia, unspecified Vitamin D deficiency, unspecified FREE THYROXINE WITH REFLEX TO FREE TRIIODOTHYRONINE Routine 06/19/2025 5:26 AM EDT Anemia, unspecified Type 2 diabetes mellitus without complications ([facility] V24, [facility] V28) Hyperlipidemia, unspecified Hypothyroidism, unspecified Magnesium deficiency Vitamin B12 deficiency anemia, unspecified Vitamin D deficiency, unspecified VITAMIN D 25 HYDROXY Routine 06/19/2025 5:26 AM EDT Anemia, unspecified Type 2 diabetes mellitus without complications ([facility] V24, [facility] V28) Hyperlipidemia, unspecified Hypothyroidism, unspecified Magnesium deficiency Vitamin B12 deficiency anemia, unspecified Vitamin D deficiency, unspecified VITAMIN B12 AND FOLATE Routine 5:26 AM EDT Anemia, unspecified Type 2 diabetes mellitus without complications ([facility] V24, [facility] V28) Hyperlipidemia, unspecified Hypothyroidism, unspecified Magnesium deficiency Vitamin B12 deficiency anemia, unspecified Vitamin D deficiency, unspecified MAGNESIUM Routine 06/19/2025 5:26 AM EDT Anemia, unspecified Type 2 diabetes mellitus without complications ([facility] V24, [facility] V28) Hyperlipidemia, unspecified Hypothyroidism, unspecified Magnesium deficiency Vitamin B12 deficiency anemia, unspecified Vitamin D deficiency, unspecified THYROID STIMULATING HORMONE WITH REFLEX TO FREE T4 AND FREE T3 Routine 06/19/2025 5:26 AM EDT Anemia, unspecified Type 2 diabetes mellitus without complications ([facility] V24, [facility] V28) Hyperlipidemia, unspecified Hypothyroidism, unspecified Magnesium deficiency Vitamin B12 deficiency anemia, unspecified Vitamin D deficiency, unspecified LIPID PANEL WITH REFLEX TO DIRECT LDL Routine 06/19/2025 5:26 AM EDT Anemia, unspecified Type 2 diabetes mellitus without complications ([facility] V24, [facility] V28) Hyperlipidemia, unspecified Hypothyroidism, unspecified Magnesium deficiency Vitamin B12 deficiency anemia, unspecified Vitamin D deficiency, unspecified COMPREHENSIVE METABOLIC PANEL Routine 06/19/2025 5:26 AM EDT Anemia, unspecified Type 2 diabetes mellitus without complications ([facility] V24, [facility] V28) Hyperlipidemia, unspecified Hypothyroidism, unspecified Magnesium deficiency Vitamin B12 deficiency anemia, unspecified Vitamin D deficiency, unspecified COMPLETE BLOOD COUNT Routine 06/19/2025 5:26 AM EDT Anemia, unspecified Type 2 diabetes mellitus without complications ([facility] V24, [facility] V28) Hyperlipidemia, unspecified Hypothyroidism, unspecified Magnesium deficiency Vitamin B12 deficiency anemia, unspecified Vitamin D deficiency, unspecified ..LAB TO CALL RESULTS Routine 05/17/2025 11:04 AM EDT HEMOGLOBIN A1C Routine 04/10/2025 7:55 AM EDT Vitamin D deficiency, unspecified Essential (primary) hypertension Unspecified atrial fibrillation ([facility] V24, [facility] V28) Type 2 diabetes mellitus without complications ([facility] V24, [facility] V28) from Last 3 Months or Most Recently Relevant to Health Maintenance Results * (ABNORMAL) Complete blood count (07/10/2025 9:59 AM EDT) Only the most recent of5 resultswithin the time period is included. WBC 7.2 4.8 - 10.8 K/mcL LAB HEMETOLOGY METHOD 07/10/2025 1:30 PM [facility] LAB RBC 4.40 3.80 - 4.80 M/mcL LAB HEMETOLOGY METHOD 07/10/2025 1:30 PM [facility] LAB Hemoglobin 11.0(L) 11.5 - 16.0 g/dL LAB HEMETOLOGY METHOD 07/10/2025 1:30 PM [facility] LAB Hematocrit 36.6 35.0 - 47.0 % LAB HEMETOLOGY METHOD 07/10/2025 1:30 PM [facility] LAB MCV 82.4 79.0 - 98.0 FL LAB HEMETOLOGY METHOD 07/10/2025 1:30 PM [facility] LAB MCH 24.8(L) 27.0 - 32.0 pcg LAB HEMETOLOGY METHOD 07/10/2025 1:30 PM [facility] LAB MCHC 30.1(L) 32.0 - 37.0 g/dL LAB HEMETOLOGY METHOD 07/10/2025 1:30 PM [facility] LAB RDW 15.5(H) 11.0 - 15.0 % LAB HEMETOLOGY METHOD 07/10/2025 1:30 PM [facility] LAB Platelets 451(H) 130 - 400 K/mcL LAB HEMETOLOGY METHOD 07/10/2025 1:30 PM [facility] LAB MPV 10.8 7.0 - 11.0 FL LAB HEMETOLOGY METHOD 07/10/2025 1:30 PM [facility] LAB NRBC 0.0 <1.0 % LAB HEMETOLOGY METHOD 07/10/2025 1:30 PM [facility] LAB NRBC Absolute 0.00 <0.10 K/mcL LAB HEMETOLOGY METHOD 07/10/2025 1:30 PM [facility] LAB Blood Venous blood specimen / Unknown Venipuncture / Unknown 07/10/2025 9:59 AM EDT 07/10/2025 10:51 AM EDT us Bruce Welch MD LAB BLOOD ORDERABLES Final Resul t [facility] LAB [address] [place] [address], [place] [phone] * (ABNORMAL) Basic metabolic panel (07/10/2025 9:59 AM EDT) Only the most recent of4 resultswithin the time period is included. Sodium 137 133 - 145 mmol/L LAB CHEMISTRY METHOD 07/10/2025 4:12 PM [facility] LAB Potassium 4.4 3.5 - 5.5 mmol/L LAB CHEMISTRY METHOD 07/10/2025 4:12 PM [facility] LAB Chloride 103 96 - 110 mmol/L LAB CHEMISTRY METHOD 07/10/2025 4:12 PM [facility] LAB CO2 26 21 - 32 mmol/L LAB CHEMISTRY METHOD 07/10/2025 4:12 PM [facility] LAB Anion Gap 8 3 - 11 LAB CHEMISTRY METHOD 07/10/2025 4:12 PM [facility] LAB Glucose 120(H) 70 - 100 mg/dL LAB CHEMISTRY METHOD 07/10/2025 4:12 PM [facility] LAB BUN 20 5 - 25 mg/dL LAB CHEMISTRY METHOD 07/10/2025 4:12 PM [facility] LAB Creatinine 0.69 0.50 - 1.10 mg/dL LAB CHEMISTRY METHOD 07/10/2025 4:12 PM [facility] LAB eGFR 88 >=60 mL/min/1. 73m2 LAB CHEMISTRY METHOD 07/10/2025 4:12 PM EDT [facility] LAB Comment:Calculation based on the Chronic Kidney Disease Epidemiology Collaboration (CKD-EPI) equation refit without adjustment for race. BUN/Creatinine Ratio 29.0 LAB CHEMISTRY METHOD 07/10/2025 4:12 PM EDT [facility] LAB Calcium 9.7 8.5 - 10.5 mg/dL LAB CHEMISTRY METHOD 07/10/2025 4:12 PM EDT [facility] LAB Blood Venous blood specimen / Unknown Venipuncture / Unknown 07/10/2025 9:59 AM EDT 07/10/2025 10:51 AM EDT us Bruce Welch MD LAB BLOOD ORDERABLES Final Resul t Performing Organization Address [facility] de Phone Number [facility] LAB [address] [place] [address], [place] [phone] * (ABNORMAL) Magnesium (07/05/2025 6:12 AM EDT) Only the most recent of2 resultswithin the time period is included. Magnesium 1.8(L) 1.9 - 2.6 mg/dL LAB CHEMISTRY METHOD 07/05/2025 11:16 AM EDT [facility] LAB Blood Venous blood specimen / Unknown Venipuncture / Unknown 07/05/2025 6:12 AM EDT 07/05/2025 9:34 AM EDT us Bruce Welch MD LAB BLOOD ORDERABLES Final Resul t Performing Organization Address [facility] de Phone Number [facility] [address] [place] [address], [place] [phone] * (ABNORMAL) Thyroid stimulating hormone with reflex to free t4 and free t3 (06/19/2025 5:26 AM EDT) TSH 0.05(L) 0.40 - 4.00 mcIU/mL LAB CHEMISTRY METHOD 06/19/2025 5:27 PM EDT [facility] LAB Blood Venous blood specimen / Unknown Venipuncture / Unknown 06/19/2025 5:26 AM EDT 06/19/2025 10:47 AM EDT us Bruce Welch MD LAB BLOOD ORDERABLES Final Resul t Performing Organization Address [facility] de Phone Number [facility] [address] [place] [address], [place] [phone] * Free thyroxine with reflex to free triiodothyronine (06/19/2025 5:26 AM EDT) Free T4 1.40 0.70 - 1.80 ng/dL LAB CHEMISTRY METHOD 06/19/2025 6:04 PM EDT [facility] Blood Venous blood specimen / Unknown Venipuncture / Unknown 06/19/2025 5:26 AM EDT 06/19/2025 10:47 AM EDT us Bruce Welch MD LAB BLOOD ORDERABLES Final Resul t Performing Organization Address [facility] de Phone Number [facility] [address] [place] [address], [place] [phone] * Vitamin B12 and folate (06/19/2025 5:26 AM EDT) Vitamin B-12 774 250 - 900 pcg/mL LAB CHEMISTRY METHOD 06/19/2025 11:51 AM EDT [facility] Folate 6.4 2.8 - 17.0 ng/ml LAB CHEMISTRY METHOD 06/19/2025 11:51 AM EDT [facility] Blood Venous blood specimen / Unknown Venipuncture / Unknown 06/19/2025 5:26 AM EDT 06/19/2025 10:47 AM EDT us Bruce Welch MD LAB BLOOD ORDERABLES Final Resul t [facility] [address] [place] [address], [place] [phone] * Lipid panel with reflex to direct LDL (06/19/2025 5:26 AM EDT) Cholesterol 116 0 - 200 mg/dL LAB CHEMISTRY METHOD 06/19/2025 11:51 AM EDT [facility] Triglycerides 72 0 - 150 mg/dL LAB CHEMISTRY METHOD 06/19/2025 11:51 AM EDT [facility] HDL 58 >=40 mg/dL LAB CHEMISTRY METHOD 06/19/2025 11:51 AM EDT [facility] LDL Calculated 44 0 - 100 mg/dL LAB CHEMISTRY METHOD 06/19/2025 11:51 AM EDT [facility] VLDL Cholesterol Apolinar 14.4 mg/dL LAB CHEMISTRY METHOD 06/19/2025 11:51 AM EDT [facility] Non HDL Chol. (LDL+VLDL) 58 <145 mg/dL LAB CHEMISTRY METHOD 06/19/2025 11:51 AM EDT [facility] Chol/HDL Ratio 2.0 0.0 - 4.4 LAB CHEMISTRY METHOD 06/19/2025 11:51 AM T [facility] LAB Blood Venous blood specimen / Unknown Venipuncture / Unknown 06/19/2025 5:26 AM EDT 06/19/2025 10:47 AM EDT us Bruce Welch MD LAB BLOOD ORDERABLES Final Resul t [facility] [address] [place] [address], [place] [phone] * Vitamin D 25 hydroxy (06/19/2025 5:26 AM EDT) Pathologist [facility] Vit D, 25-Hydroxy 72.3 30.0 - 80.0 ng/mL LAB CHEMISTRY METHOD 06/19/2025 1:24 PM EDT [facility] Blood Venous blood specimen / Unknown Venipuncture / Unknown 06/19/2025 5:26 AM EDT 06/19/2025 10:47 AM EDT us Bruce Welch MD LAB BLOOD ORDERABLES Final Resul t Performing Organization Address City/[facility]/ZIP Co de Phone Number [facility] [address] [place] [address], [place] [phone] * (ABNORMAL) Triiodothyronine free (06/19/2025 5:26 AM EDT) [facility] T3, Free 193(L) 230 - 420 pcg/dL LAB CHEMISTRY METHOD 06/19/2025 7:36 PM EDT [facility] Blood Venous blood specimen / Unknown Venipuncture / Unknown 06/19/2025 5:26 AM EDT 06/19/2025 10:47 AM EDT us Bruce Welch MD LAB BLOOD ORDERABLES Final Resul t Performing Organization Address [facility] de Phone Number [facility] [address] [place] [address], [place] [phone] * (ABNORMAL) Comprehensive metabolic panel (06/19/2025 5:26 AM EDT) [facility] Sodium 139 133 - 145 mmol/L LAB CHEMISTRY METHOD 06/19/2025 11:51 AM EDT [facility] Potassium 3.9 3.5 - 5.5 mmol/L LAB CHEMISTRY METHOD 06/19/2025 11:51 AM EDT [facility] Chloride 104 96 - 110 mmol/L LAB CHEMISTRY METHOD 06/19/2025 11:51 AM EDT [facility] CO2 27 21 - 32 mmol/L LAB CHEMISTRY METHOD 06/19/2025 11:51 AM [facility] LAB Anion Gap 8 3 - 11 LAB CHEMISTRY METHOD 06/19/2025 11:51 AM [facility] LAB Glucose 70 70 - 100 mg/dL LAB CHEMISTRY METHOD 06/19/2025 11:51 AM [facility] LAB BUN 27(H) 5 - 25 mg/dL LAB CHEMISTRY METHOD 06/19/2025 11:51 AM [facility] LAB Creatinine 0.91 0.50 - 1.10 mg/dL LAB CHEMISTRY METHOD 06/19/2025 11:51 AM [facility] LAB eGFR 64 >=60 mL/min/1. 73m2 LAB CHEMISTRY METHOD 06/19/2025 11:51 AM [facility] LAB Comment:Calculation based on the Chronic Kidney Disease Epidemiology Collaboration (CKD-EPI) equation refit without adjustment for race. BUN/Creatinine Ratio 29.7 LAB CHEMISTRY METHOD 06/19/2025 11:51 AM [facility] LAB Calcium 9.3 8.5 - 10.5 mg/dL LAB CHEMISTRY METHOD 06/19/2025 11:51 AM [facility] AST (SGOT) 22 10 - 42 unit/L LAB CHEMISTRY METHOD 06/19/2025 11:51 AM [facility] ALT (SGPT) 26 10 - 60 unit/L LAB CHEMISTRY METHOD 06/19/2025 11:51 AM [facility] LAB Alkaline Phosphatase 158(H) 42 - 121 unit/L LAB CHEMISTRY METHOD 06/19/2025 11:51 AM [facility] Total Protein 5.8(L) 6.0 - 8.0 g/dL LAB CHEMISTRY METHOD 06/19/2025 11:51 AM [facility] LAB Albumin 2.8(L) 3.2 - 5.0 g/dL LAB CHEMISTRY METHOD 06/19/2025 11:51 AM EDT [facility] Total Bilirubin 0.5 0.0 - 1.4 mg/dL LAB CHEMISTRY METHOD 06/19/2025 11:51 AM EDT [facility] Blood Venous blood specimen / Unknown Venipuncture / Unknown 06/19/2025 5:26 AM EDT 06/19/2025 10:47 AM EDT Bruce Welch MD LAB BLOOD ORDERABLES Final Resul t Performing Organization Address [facility]/ZIP Co de Phone Number [facility] [address] [place] [address], [place] [phone] * Lab use only - Non-affiliated results notification (05/17/2025 11:04 AM EDT) Other Topography unknown / Unknown [facility] LAB BLOOD ORDERABLES Coty nicolas Result * Hemoglobin A1c (04/10/2025 7:55 AM EDT) Hemoglobin A1C 6.3 <6.5 % LAB CHEMISTRY METHOD 04/10/2025 9:54 PM EDT [facility] Mean Bld Glu Estim. 134 mg/dL LAB CHEMISTRY METHOD 04/10/2025 9:54 PM EDT [facility] Blood Venous blood specimen / Unknown Venipuncture / Unknown 04/10/2025 7:55 AM EDT 04/10/2025 10:43 AM EDT us Bruce Welch MD LAB BLOOD ORDERABLES Final Resul t Performing Organization Address [facility]/ZIP Co de Phone Number [facility] [address] [place] [address], [place] [phone] from Last 3 Months or Most Recently Relevant to Health Maintenance Insurance [employer] Care Teams [employer] Manager Relationship Specialty Start Date End Date Bruce Welch MD [address] [place] [address] [address] [place] [address] PCP - General Geriatric Medicine 06/19/25
--- OUTSIDE RECORDS SUMMARY | 2025-08-16 12:48 | XMS_ITS | Encounter Summary ---
Author Organization [facility] [address] Address [address] [place] [address] Care Team Providers Care Executive Talent Acquisition Consultant Name Role Phone Bruce Welch MD Primary Care Provider [phone] Encounter Details Date Type Department Care Team (Late st Contact Info) Description 06/24/2025 Lab Requisition [facility] - Main Lab [address] [facility] [place] [address] Bruce Welch MD [address] [place], [place] [id number] Type 2 diabetes mellitus without complications (CMS/HCC [...] Associated Diagnosis Comments COMPLETE BLOOD COUNT Routine 06/26/2025 10:03 AM EDT Type 2 diabetes mellitus without complications (CMS/HCC V24, CMS/HCC V28) Anemia, unspecified BASIC METABOLIC PANEL Routine 06/26/2025 10:03 AM EDT Type 2 diabetes mellitus without complications (CMS/HCC V24, CMS/HCC V28) Anemia, unspecified documented in this encounter Results * (ABNORMAL) Basic metabolic panel (06/26/2025 10:03 AM EDT) Sodium 138 133 - 145 mmol/L LAB CHEMISTRY METHOD 06/26/2025 1:23 PM [facility] Potassium 3.9 3.5 - 5.5 mmol/L LAB CHEMISTRY METHOD 06/26/2025 1:23 PM [facility] Chloride 103 96 - 110 mmol/L LAB CHEMISTRY METHOD 06/26/2025 1:23 PM [facility] CO2 27 21 - 32 mmol/L LAB CHEMISTRY METHOD 06/26/2025 1:23 PM [facility] Anion Gap 8 3 - 11 LAB CHEMISTRY METHOD 06/26/2025 1:23 PM [facility] Glucose 111(H) 70 - 100 mg/dL LAB CHEMISTRY METHOD 06/26/2025 1:23 PM [facility] BUN 21 5 - 25 mg/dL LAB CHEMISTRY METHOD 06/26/2025 1:23 PM [facility] Creatinine 0.69 0.50 - 1.10 mg/dL LAB CHEMISTRY METHOD 06/26/2025 1:23 PM [facility] eGFR 88 >=60 mL/min/1. 73m2 LAB CHEMISTRY METHOD 06/26/2025 1:23 PM [facility] Comment:Calculation based on the Chronic Kidney Disease Epidemiology Collaboration (CKD-EPI) equation refit without adjustment for race. BUN/Creatinine Ratio 30.4 LAB CHEMISTRY METHOD 06/26/2025 1:23 PM [facility] Calcium 8.6 8.5 - 10.5 mg/dL LAB CHEMISTRY METHOD 06/26/2025 1:23 PM [facility] Blood Venous blood specimen / Unknown Venipuncture / Unknown 06/26/2025 10:03 AM EDT 06/26/2025 11:19 AM EDT us Bruce Welch MD LAB BLOOD ORDERABLES Final Resul t [facility] [address] [place] [address], * (ABNORMAL) Complete blood count (06/26/2025 10:03 AM EDT) [facility] WBC 9.4 4.8 - 10.8 K/mcL LAB HEMETOLOG[facility] RBC 4.10 3.80 - 4.80 M/mcL LAB HEMETOLOGY METHOD 06/26[facility]25 12[facility] Hemoglobin 10.2(L) 11.5 - 16.0 g/dL LAB HEMETOLOGY METHOD 06/26/2025 12:15 PM [facility] Hematocrit 33.2(L) 35.0 - 47.0 % LAB HEMETOLOGY METHOD 06/26/2025 12:15 PM [facility] MCV 81.4 79.0 - 98.0 FL LAB HEMETOLOGY METHOD 06/26/2025 12:15 PM [facility] MCH 25.0(L) 27.0 - 32.0 pcg LAB HEMETOLOGY METHOD 06/26/2025 12:15 PM [facility] MCHC 30.7(L) 32.0 - 37.0 g/dL LAB HEMETOLOGY METHOD 06/26/2025 12:15 PM [facility] RDW 15.9(H) 11.0 - 15.0 % LAB HEMETOLOGY METHOD 06/26/2025 12:15 PM [facility] Platelets 364 130 - 400 K/mcL LAB HEMETOLOGY METHOD 06/26/2025 12:15 PM [facility] MPV 10.5 7.0 - 11.0 FL LAB HEMETOLOGY METHOD 06/26/2025 12:15 PM [facility] NRBC 0.0 <1.0 % LAB HEMETOLOGY METHOD 06/26/2025 12:15 PM EDT [facility] NRBC Absolute 0.00 <0.10 K/mcL LAB HEMETOLOGY METHOD 06/26/2025 12:15 PM EDT [facility] Blood Venous blood specimen / Unknown Venipuncture / Unknown 06/26/2025 10:03 AM EDT 06/26/2025 11:19 AM EDT us Bruce Welch MD LAB BLOOD ORDERABLES Final Resul t [facility] [address] [place] [address], documented in this encounter Visit Diagnoses Diagnosis Type 2 diabetes mellitus without complications (CMS/HCC V24, CMS/HCC V28) Anemia, unspecified documented in this encounter Care Teams Executive Talent Acquisition Consultant Relationship Specialty Start Date End Date Bruce Welch MD [address] [place] [address] [address] [place] [address] PCP - General Geriatric Medicine 06/19/25 documented as of this encounter
== END 2025-08-16 11:19 | disposition home or self-care (01) ==
LOC: HO.HMCH 10:21
PROVIDERS: PCP Internal Medicine; Visit Provider Internal Medicine
DX: E83.42 Hypomagnesemia (principal); R29.6 Repeated falls

== ENCOUNTER → 2025-08-16 10:21 | Outpatient (BNVA) | payer MEDICARE, SELFPAY | PROVIDERS: PCP Internal Medicine; Visit Provider Internal Medicine | DX: E83.42 Hypomagnesemia (principal); R29.6 Repeated falls; G56.03 Carpal tunnel syndrome, bilateral upper limbs; Z79.01 Long term (current) use of anticoagulants; Z86.73 Personal history of transient ischemic attack (TIA), and cerebral infarction without residual deficits | CPT/HCPCS: 99212 ==

== ENCOUNTER 2025-09-06 14:33 | Outpatient (AMB) | payer MEDICARE, SELFPAY ==
--- OUTSIDE RECORDS SUMMARY | 2024-07-13 10:30 | XMS_ITS ---
Author Organization [facility] Address [address] [place] [address] Care Team Providers Care Casing Fluid Tender Name Role Phone Milana NATARAJAN, Allen Primary Care Provider Desire Arias [phone] Encounters Encounter Location Date Provider Diagnosis [address] [address] 07/13/2024 Desire Ashford Plan Of Treatment No Information Progress Notes * Naty CERVANTES LDOB: [birth year] (79 yo F)Acc No.[id number]:07/13/2024 Progress Note Patient: Naty WOLF Provider: Caitlin Ashford DPM :1945 A ge:78 Y S ex:Female Date:07/13/2024 Address:[address] [place], [place] [id number] Pcp:Allen Cortés MD Subjective: * Chief Complaints: [...] DPM Date: 0 07/13/2024 Generated for Ebonyi ng/Falesterg/eTransmitting on: 06:16 PM EDT
--- NOTE | 2025-09-06 14:43 | MHC.OFFVIS ---
Intake Visit Reasons: NewProblem- Bilateral CTS - EMG Done Intake Note: Naty is a 79 year old right hand dominant female who presents today as an established patient, new problem visit to evaluate bilateral hands. Patient referred by PCP for significant numbness in the right hand and potential surgery for the left hand. EMG was obtained. Patient reports she is having ongoing numbness and tingling for a couples of months. SHe states that both hands are equal to pain and numbness. [address] Cage scanned in chart. Accompanied by: Daughter Allergies amoxicillin (Augmentin) Allergy (Unknown, Verified 09/06/25 14:47) hives clavulanic acid (Augmentin) Allergy (Unknown, Verified 09/06/25 14:47) hives furosemide Allergy (Unknown, Verified 09/06/25 14:47) unknown latex (LATEX) Allergy (Unknown, Verified 09/06/25 14:47) UNKNOWN lisinopril Allergy (Unknown, Verified 09/06/25 14:47) Unknown oxycodone (Percocet) Allergy (Unknown, Verified 09/06/25 14:47) Stomach upset tramadol Allergy (Unknown, Verified 09/06/25 14:47) Stomach uspet HPI HPI NewProblem- Bilateral CTS - EMG Done: Details: Naty is a 79 year old right hand dominant woman who presents with complaints of bilateral hand pain & numbness. She is here with her daughter today. She complains of pain, cramping, weakness, and numbness in her bilateral hands, in all digits. She says she has constant tingling in her fingers, with worse numbness at night. She is not able to hold things easily and is constantly dropping things according to her daughter. She also complains of occasional cramping in her fingers. She denies any prior treatment options Her daughter says she saw Dr. Jimenez a few months ago and had a repeat NCS done, but there is no record in our system of this currently. She has a Hx of 2 strokes, her last was in 06/2024, and her PCP notes cognitive deficits which are likely related. 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 She also has paroxysmal atrial fibrillation for which she is on Eliquis. She is [facility] Medical History (Updated 09/06/25 @ 15:23 by Zeyad Gimenez) Carpal tunnel syndrome Frequent falls Paroxysmal atrial fibrillation Orthostatic hypotension Anemia Buttock wound Obesity (BMI 30-39.9) Neuropathy Acquired hypothyroidism Mixed hyperlipidemia Essential hypertension Atrial fibrillation Hypothyroidism Obesity Type 2 diabetes mellitus with morbid obesity Annual physical exam Vitamin D deficiency HLD (hyperlipidemia) T2DM (type 2 diabetes mellitus) Diabetes mellitus Hypertension Surgical History H/O hysterectomy for benign disease History of vitrectomy History of surgery History of colonoscopy (~01/28/19) History of appendectomy History of cholecystectomy S/P JOSIE (total abdominal hysterectomy) Family History Father Diabetes Mother CHF (congestive heart failure) CVD (cardiovascular disease) Brother HIV (human immunodeficiency virus infection) Social History Household Members: Children Household Members Other:: alternating among 2 daughters and 1 son Housing: House Do you presently have visiting nurse or other home services: No Alcohol intake: current Patient Tobacco Use Status: Former Tobacco user Tobacco use type: Cigarette Years Smoked: 30, started at 10, about 15 cig a day, e-Cigarette/Vaping Use: Former Use Second Hand Smoke Exposure: Yes Advance Directives Date on File: 12/15/23 service: No Current occupational status: retired Current occupational exposures/hazards: No Cognitive needs: No Hearing needs: No Vision needs: No Review of Systems Const All systems reviewed & are unremarkable except as noted in HPI and below Physical Exam Const General: cooperative, healthy appearing and no acute distress Orientation/consciousness: patient oriented x3 HEENT Head: Yes normocephalic and Yes atraumatic Eyes EOM: EOMs intact bilaterally Resp Effort & Inspection: normal respiratory effort and able to speak in complete sentences Cardio Jugular venous distension: no JVD Skin General skin exam: turgor normal Rashes: no rashes Neuro General: patient oriented x3 Extrem Other: Evaluation of Bilateral Upper Extremity: The patient is alert, oriented, and in no acute distress Neuro: Dense numbness in all digits bilaterally Severe thenar wasting on the right Vascular: Cap refill brisk ROM: She can make a fist and extend all of her digits bilaterally. Skin: No lacerations or abrasions. General: No Ecchymosis. No Erythema or evidence of infection. Nerve Conduction study: Right carpal tunnel syndrome, end-stage Left carpal tunnel syndrome, severe Left cubital tunnel syndrome, moderate-severe Dr. Jimenez 11/05/22 Psych Appearance: grossly normal Affect: normal affect Attitude: cooperative Assessment & Plan Assessment & Plan (1) Carpal tunnel syndrome of left wrist: Code(s): G56.02 - Carpal tunnel syndrome, left upper limb Category: Medical (2) Carpal tunnel syndrome of right wrist: Code(s): G56.01 - Carpal tunnel syndrome, right upper limb Category: Medical (3) T2DM (type 2 diabetes mellitus): Code(s): E11.9 - Type 2 diabetes mellitus without complications Category: Medical Qualifiers: Diabetes mellitus complication status: with hyperglycemia Diabetes mellitus termite technician insulin use: with skilled nursing use Qualified Code(s): E11.65 - Type 2 diabetes mellitus with hyperglycemia; Z79.4 - terminal supervisor (current) use of insulin (4) CVA (cerebral vascular accident): Code(s): I63.9 - Cerebral infarction, unspecified Category: Medical (5) Frequent falls: Code(s): R29.6 - Repeated falls Category: Medical (6) Paroxysmal atrial fibrillation: Code(s): I48.0 - Paroxysmal atrial fibrillation Category: Medical (7) Cubital tunnel syndrome on left: Code(s): G56.22 - Lesion of ulnar nerve, left upper limb Category: Medical Plan Assessment & Plan: 1. Left carpal tunnel release, severe With dense numbness 2. Right carpal tunnel syndrome, end-stage With dense numbness & severe thenar wasting 3. Left cubital tunnel syndrome, moderate-severe With dense numbness I educated her and her daughter about these conditions I discussed operative and non-operative treatment options The patient would like to proceed with surgery, beginning with her left hand. Given her comorbidities, she is not a good candidate for a cubital tunnel release due to general anesthesia. We can discuss possible treatment options after she has recovered from her carpal tunnel surgeries. I explained the risks of her sensation not returning, but that surgery is important to preserve any muscle function and/or any sensation possible. This may also help improve her generalized hand pain & achiness, which may be related to her carpal tunnel symptoms. She expressed understanding The risks and benefits of operative treatment were discussed with the patient and the patient wishes to proceed with surgery. These risks include, but are not limited to risk of damage to blood vessels, nerves, tendons, infection, recurrence, incomplete relief of preoperative symptoms, persistent pain, possible need for further surgery and the risks associated with regional blocks and anesthesia. The plan is to take the patient to the operating room sometime in the next few weeks for the following procedures: 1. Left carpal tunnel release, under local All of the preoperative paperwork including the consent was reviewed today. All the patient's questions were answered. The patient understands that they will be contacted by our chief of surgery soon to schedule this procedure She denies asthma, lung, kidney issues She has a Hx of two strokes in the past, and is on Eliquis. She is a Diabetic, her most recent HgA1c was 7.5% on 06/02/25. Her daughter reports her most recent HgA1c was ~5.6% but is unsure from when. Scribed for Maggie Tuttle MD by Zeyad Gimenez, medical technologist chemistry, on 09/06/25 at 3:15 PM, EST. Coding Level of Care Code New Pt Level 4 (57908) Diagnoses Carpal tunnel syndrome of left wrist G56.02 Carpal tunnel syndrome of right wrist G56.01 Type 2 diabetes mellitus with hyperglycemia, with long-term current use of insulin E11.65; Z79.4 Diabetes mellitus complication status: with hyperglycemia Diabetes mellitus skilled nursing insulin use: with skilled nursing use CVA (cerebral vascular accident) I63.9 Frequent falls R29.6 Paroxysmal atrial fibrillation I48.0 Cubital tunnel syndrome on left G56.22
--- OUTSIDE RECORDS SUMMARY | 2025-09-06 18:16 | XMS_ITS | Encounter Summary ---
Author Organization [facility] Address [address] [place] [address] Care Team Providers Care Flight Service Agent Name Role Phone Bruce Welch MD Primary Care Provider [phone] Encounter Details Date Type Department Care Team (Late st Contact Info) Description 04/10/2025 Lab Requisition [facility] - Main Lab [address] [place] [address] Bruce Welch MD [address] [place], [place] [id number] Vitamin D deficiency, unspecified; Essential (primary) hypertension; [...] (ABNORMAL) Vitamin B12 (04/10/2025 7:55 AM EDT) [facility] Vitamin B-12 1,228(H) 250 - 900 pcg/mL LAB CHEMISTRY METHOD 04/10/2025 12:37 PM EDT [facility] Blood Venous blood specimen / Unknown Venipuncture / Unknown 04/10/2025 7:55 AM EDT 04/10/2025 10:43 AM EDT us Bruce Welch MD LAB BLOOD ORDERABLES Final Resul t Performing Organization Address City/[facility]/ZIP Co de Phone Number [facility] [address] [place] [address], [place] [phone] * Folate (04/10/2025 7:55 AM EDT) [facility] Folate 7.2 2.8 - 17.0 ng/ml LAB CHEMISTRY METHOD 04/10/2025 12:37 PM EDT [facility] Blood Venous blood specimen / Unknown Venipuncture / Unknown 04/10/2025 7:55 AM EDT 04/10/2025 10:43 AM EDT us Bruce Welch MD LAB BLOOD ORDERABLES Final Resul t Performing Organization Address [facility] Co de Phone Number [facility] [address] [place] [address], [place] [phone] * Vitamin D 25 hydroxy (04/10/2025 7:55 AM EDT) [facility] Vit D, 25-Hydroxy 71.3 30.0 - 80.0 ng/mL LAB CHEMISTRY METHOD 04/10/2025 2:06 PM EDT [facility] Blood Venous blood specimen / Unknown Venipuncture / Unknown 04/10/2025 7:55 AM EDT 04/10/2025 10:43 AM EDT us Bruce Welch MD LAB BLOOD ORDERABLES Final Resul t Performing Organization Address City/[facility]/ZIP Co de Phone Number [facility] [address] [place] [address], [place] [phone] * Hemoglobin A1c (04/10/2025 7:55 AM EDT) [facility] Hemoglobin A1C 6.3 <6.5 % LAB CHEMISTRY METHOD 04/10/2025 9:54 PM EDT [facility] Mean Bld Glu Estim. 134 mg/dL LAB CHEMISTRY METHOD 04/10/2025 9:54 PM EDT [facility] Blood Venous blood specimen / Unknown Venipuncture / Unknown 04/10/2025 7:55 AM EDT 04/10/2025 10:43 AM EDT us Bruce Welch MD LAB BLOOD ORDERABLES Final Resul t [facility] [address] [place] [address], [place] [phone] * (ABNORMAL) Lipid panel with reflex to direct LDL (04/10/2025 7:55 AM EDT) [facility] Cholesterol 94 0 - 200 mg/dL LAB CHEMISTRY METHOD 04/10/2025 12:37 PM [facility] Triglycerides 84 0 - 150 mg/dL LAB CHEMISTRY METHOD 04/10/2025 12:37 PM [facility] HDL 39(L) >=40 mg/dL LAB CHEMISTRY METHOD 04/10/2025 12:37 PM [facility] LDL Calculated 38 0 - 100 mg/dL LAB CHEMISTRY METHOD 04/10/2025 12:37 PM [facility] VLDL Cholesterol Apolinar 16.8 mg/dL LAB CHEMISTRY METHOD 04/10/2025 12:37 PM EDT [facility] Non HDL Chol. (LDL+VLDL) 55 <145 mg/dL LAB CHEMISTRY METHOD 04/10/2025 12:37 PM [facility] Chol/HDL Ratio 2.4 0.0 - 4.4 LAB CHEMISTRY METHOD 04/10/2025 12:37 PM [facility] Blood Venous blood specimen / Unknown Venipuncture / Unknown 04/10/2025 7:55 AM EDT 04/10/2025 10:43 AM EDT Bruce Welch MD LAB BLOOD ORDERABLES Final Resul t [facility] [address] [place] [address], [place] [phone] * (ABNORMAL) Comprehensive metabolic panel (04/10/2025 7:55 AM EDT) Sodium 142 133 - 145 mmol/L LAB CHEMISTRY METHOD 04/10/2025 12:37 PM [facility] Potassium 4.1 3.5 - 5.5 mmol/L LAB CHEMISTRY METHOD 04/10/2025 12:37 PM [facility] Chloride 107 96 - 110 mmol/L LAB CHEMISTRY METHOD 04/10/2025 12:37 PM [facility] CO2 27 21 - 32 mmol/L LAB CHEMISTRY METHOD 04/10/2025 12:37 PM [facility] Anion Gap 8 3 - 11 LAB CHEMISTRY METHOD 04/10/2025 12:37 PM [facility] Glucose 87 70 - 100 mg/dL LAB CHEMISTRY METHOD 04/10/2025 12:37 PM [facility] BUN 15 5 - 25 mg/dL LAB CHEMISTRY METHOD 04/10/2025 12:37 PM [facility] Creatinine 0.73 0.50 - 1.10 mg/dL LAB CHEMISTRY METHOD 04/10/2025 12:37 PM [facility] eGFR 84 >=60 mL/min/1. 73m2 LAB CHEMISTRY METHOD 04/10/2025 12:37 PM [facility] Comment:Calculation based on the Chronic Kidney Disease Epidemiology Collaboration (CKD-EPI) equation refit without adjustment for race. BUN/Creatinine Ratio 20.5 LAB CHEMISTRY METHOD 04/10/2025 12:37 PM T [facility] Calcium 8.4(L) 8.5 - 10.5 mg/dL LAB CHEMISTRY METHOD 04/10/2025 12:37 PM [facility] AST (SGOT) 35 10 - 42 unit/L LAB CHEMISTRY METHOD 04/10/2025 12:37 PM [facility] ALT (SGPT) 34 10 - 60 unit/L LAB CHEMISTRY METHOD 04/10/2025 12:37 PM [facility] Alkaline Phosphatase 225(H) 42 - 121 unit/L LAB CHEMISTRY METHOD 04/10/2025 12:37 PM [facility] Total Protein 5.4(L) 6.0 - 8.0 g/dL LAB CHEMISTRY METHOD 04/10/2025 12:37 PM [facility] Albumin 2.4(L) 3.2 - 5.0 g/dL LAB CHEMISTRY METHOD 04/10/2025 12:37 PM [facility] Total Bilirubin 0.4 0.0 - 1.4 mg/dL LAB CHEMISTRY METHOD 04/10/2025 12:37 PM [facility] Blood Venous blood specimen / Unknown Venipuncture / Unknown 04/10/2025 7:55 AM EDT 04/10/2025 10:43 AM EDT us Bruce Welch MD LAB BLOOD ORDERABLES Final Resul t [facility] [address] [place] [address], * (ABNORMAL) Complete blood count (04/10/2025 7:55 AM EDT) WBC 7.3 4.8 - 10.8 K/mcL LAB HEMETOLOGY METHOD 04/10/2025 12:23 PM EDT [facility] RBC 3.30(L) 3.80 - 4.80 M/mcL LAB HEMETOLOGY METHOD 04/10/2025 12:23 PM [facility] Hemoglobin 8.4(L) 11.5 - 16.0 g/dL LAB HEMETOLOGY METHOD 04/10/2025 12:23 PM [facility] Hematocrit 27.9(L) 35.0 - 47.0 % LAB HEMETOLOGY METHOD 04/10/2025 12:23 PM [facility] MCV 83.8 79.0 - 98.0 FL LAB HEMETOLOGY METHOD 04/10/2025 12:23 PM [facility] MCH 25.2(L) 27.0 - 32.0 pcg LAB HEMETOLOGY METHOD 04/10/2025 12:23 PM [facility] MCHC 30.1(L) 32.0 - 37.0 g/dL LAB HEMETOLOGY METHOD 04/10/2025 12:23 PM [facility] RDW 15.7(H) 11.0 - 15.0 % LAB HEMETOLOGY METHOD 04/10/2025 12:23 PM [facility] Platelets 279 130 - 400 K/mcL LAB HEMETOLOGY METHOD 04/10/2025 12:23 PM [facility] MPV 11.8(H) 7.0 - 11.0 FL LAB HEMETOLOGY METHOD 04/10/2025 12:23 PM [facility] NRBC 0.0 <1.0 % LAB HEMETOLOGY METHOD 04/10/2025 12:23 PM [facility] NRBC Absolute 0.00 <0.10 K/mcL LAB HEMETOLOGY METHOD 04/10/2025 12:23 PM [facility] Blood Venous blood specimen / Unknown Venipuncture / Unknown 04/10/2025 7:55 AM EDT 04/10/2025 10:43 AM EDT Bruce Weclh MD LAB BLOOD ORDERABLES Final Resul t [facility] [address] [place] [address], [place] [phone] documented in this encounter Visit Diagnoses Diagnosis Vitamin D deficiency, unspecified Essential (primary) hypertension Unspecified essential hypertension Unspecified atrial fibrillation (CMS/[facility] V24, CMS/[facility] V28) Type 2 diabetes mellitus without complications (CMS/[facility] V24, CMS/[facility] V28) documented in this encounter Care Teams Flight Service Agent Relationship Specialty Start Date End Date Bruce Welch MD [address] [place] [address] [address] [place] [address] PCP - General Geriatric Medicine 06/19/25 documented as of this encounter
--- OUTSIDE RECORDS SUMMARY | 2025-09-06 18:16 | XMS_ITS | Encounter Summary ---
Author Organization [facility] Address [address] [place] [address] Care Team Providers Care Domestic Housekeeper Name Role Phone Bruce Welch MD Primary Care Provider [phone] Encounter Details Date Type Department Care Team (Late st Contact Info) Description 06/24/2025 Lab Requisition [facility] - Main Lab 299 [facility] [place] [address] Bruce Welch MD [address] [place], [place] [id number] Type 2 diabetes mellitus without complications (CMS/HCC [...] mmol/L LAB CHEMISTRY METHOD 06/26/2025 1:23 PM [facility] Potassium 3.9 3.5 - 5.5 mmol/L LAB CHEMISTRY METHOD 06/26/2025 1:23 PM [facility] Chloride 103 96 - 110 mmol/L LAB CHEMISTRY METHOD 06/26/2025 1:23 PM [facility] CO2 27 21 - 32 mmol/L LAB CHEMISTRY METHOD 06/26/2025 1:23 PM [facility] Anion Gap 8 3 - 11 LAB CHEMISTRY METHOD 06/26/2025 1:23 PM [facility] Glucose 111(H) 70 - 100 mg/dL LAB CHEMISTRY METHOD 06/26/2025 1:23 PM [facility] BUN 21 5 - 25 mg/dL LAB CHEMISTRY METHOD 06/26/2025 1:23 PM [facility] Creatinine 0.69 0.50 - 1.10 mg/dL LAB CHEMISTRY METHOD 06/26/2025 1:23 PM [facility] eGFR 88 >=60 mL/min/1. 73m2 LAB CHEMISTRY METHOD 06/26/2025 1:23 PM [facility] Comment:Calculation based on the Chronic Kidney Disease Epidemiology Collaboration (CKD-EPI) equation refit without adjustment for race. BUN/Creatinine Ratio 30.4 LAB CHEMISTRY METHOD 06/26/2025 1:23 PM [facility] Calcium 8.6 8.5 - 10.5 mg/dL LAB CHEMISTRY METHOD 06/26/2025 1:23 PM [facility] Blood Venous blood specimen / Unknown Venipuncture / Unknown 06/26/2025 10:03 AM EDT 06/26/2025 11:19 AM EDT us Bruce Welch MD LAB BLOOD ORDERABLES Final Resul t [facility] [address] [place] [address], * (ABNORMAL) Complete blood count (06/26/2025 10:03 AM EDT) [facility] WBC 9.4 4.8 - 10.8 K/mcL LAB HEMETOLOGY METHOD [facility] RBC 4.10 3.80 - 4.80 M/mcL LAB HEMETOLOGY METHOD 06/26[facility]2025 12[facility] Hemoglobin 10.2(L) 11.5 - 16.0 g/dL LAB HEMETOLOGY METHOD 06/26/2025 12:15 PM [facility] Hematocrit 33.2(L) 35.0 - 47.0 % LAB HEMETOLOGY METHOD 06/26/2025 12:15 PM [facility] MCV 81.4 79.0 - 98.0 FL LAB HEMETOLOGY METHOD 06/26/2025 12:15 PM [facility] MCH 25.0(L) 27.0 - 32.0 pcg LAB HEMETOLOGY METHOD 06/26/2025 12:15 PM [facility] MCHC 30.7(L) 32.0 - 37.0 g/dL LAB HEMETOLOGY METHOD 06/26/2025 12:15 PM [facility] RDW 15.9(H) 11.0 - 15.0 % LAB HEMETOLOGY METHOD 06/26/2025 12:15 PM [facility] Platelets 364 130 - 400 K/mcL LAB HEMETOLOGY METHOD 06/26/2025 12:15 PM [facility] MPV 10.5 7.0 - 11.0 FL LAB HEMETOLOGY METHOD 06/26/2025 12:15 PM [facility] NRBC 0.0 <1.0 % LAB HEMETOLOGY METHOD 06/26/2025 12:15 PM EDT [facility] NRBC Absolute 0.00 <0.10 K/mcL LAB HEMETOLOGY METHOD 06/26/2025 12:15 PM EDT [facility] Blood Venous blood specimen / Unknown Venipuncture / Unknown 06/26/2025 10:03 AM EDT 06/26/2025 11:19 AM EDT us Bruce Welch MD LAB BLOOD ORDERABLES Final Resul t [facility] [address] [place] [address], documented in this encounter Visit Diagnoses Diagnosis Type 2 diabetes mellitus without complications (CMS/HCC V24, CMS/HCC V28) Anemia, unspecified documented in this encounter Care Teams Domestic Housekeeper Relationship Specialty Start Date End Date Bruce Welch MD [address] [place] [address] [address] [place] [address] PCP - General Geriatric Medicine 06/19/25 documented as of this encounter
--- OUTSIDE RECORDS SUMMARY | 2025-09-06 18:16 | XMS_ITS | Patient Health Record ---
Author Organization [facility] Address [address] [place] [address] Care Team Providers Care Food Beverage Supervisor Name Role Phone Wilbur Velázquez M.D. Primary Care Provider Erna Obrien Jr Desean Unavailable [phone] Allergies Allergen (clinical drug ingredient) Drug/Non Drug [...] Orally every 12 hrs/prn Active Vitamin D3 32512 UNIT 1 capsule Orally O nce a day Active Golytely 236 GM as directed before colonoscopy Orally every 15 minutes; Duration: 1 day(s) Active Social History Tobacco Use: [...] Problem Status W/U Status Risk Notes Problem Colon cancer screening (512145893) Colon cancer screening (Z12.11) Active confirmed Problem retirement current use of non-steroidal anti-inflammat ory drug (0514231098044 03) retirement (current) use of non-steroidal anti-inflammat ories (NSAID) (Z79.1) Active confirmed Problem Long-term current use of insulin (690804359) keno terminal operator (current) use of insulin (Z79.4) Active confirmed Plan Of Treatment Future Test Test Name Order Date COLONOSCOPY 06/09/2018 Insurance Providers Payer Name Payer Address Payer Phone Subscriber Number Group Number Insured Name Patient Relationship to Insured Coverage Start Date Coverage End Date [facility] [address] [place] [address] [phone] [id number] ALFONSO CUNHA Self - patient is the insured Medical (General) History Medical History History ICD Code hypertension diabetes mellitus elevated cholesterol hypothyroidism arthritis Surgical History Surgery Date(Month/Year) hysterectomy back surgery cholecystectomy cataract-lens implants both eyes
--- OUTSIDE RECORDS SUMMARY | 2025-09-06 18:16 | XMS_ITS | Encounter Summary ---
Author Organization [facility] Address [address] [place] [address] Care Team Providers Care Cold Water Machine Operator Name Role Phone Bruce Welch MD Primary Care Provider [phone] Encounter Details Date Type Department Care Team (Late st Contact Info) Description 04/21/2025 Lab Requisition [facility] - Main Lab [address] [facility] [place] [address] Bruce Welch MD [address] [place], [place] [phone] Vitamin D deficiency, unspecified; Essential (primary) hypertension; [...] V28) documented in this encounter Care Teams Cold Water Machine Operator Relationship Specialty Start Date End Date Bruce Welch MD [address] [place], [place] [phone] PCP - General Geriatric Medicine 06/19/25 documented as of this encounter
--- OUTSIDE RECORDS SUMMARY | 2025-09-06 18:16 | XMS_ITS | Encounter Summary ---
Author Organization [facility] Address [address] [place] [address] Care Team Providers Care Cash Posting Clerk Name Role Phone Bruce Welch MD Primary Care Provider [phone] Encounter Details Date Type Department Care Team (Late st Contact Info) Description 07/14/2025 Lab Requisition [facility] - Main Lab 299 [facility] [employer] [place] [address] Bruce Welch MD [address] [facility] [address] [place], [place] [phone] Type 2 diabetes mellitus without complications (CMS/HCC [...] unspecified documented in this encounter Care Teams Cash Posting Clerk Relationship Specialty Start Date End Date Bruce Welch MD [address] [facility] [address] [place], [place] [phone] PCP - General Geriatric Medicine 06/19/25 documented as of this encounter
--- OUTSIDE RECORDS SUMMARY | 2025-09-06 18:16 | XMS_ITS | Patient Health Record ---
Author Organization [facility] Address [address] [place] [address] Care Team Providers Care Transformation Lead Name Role Phone Milana NATARAJAN, Allen Primary Care Provider Desire Arias Unavailable [phone] Allergies No Known Allergies Reason For Referral [...] Problem Acquired hammer toe of right foot (0356984652734795 ) Other hammer toe(s) (acquired), right foot (M20.41) Active confirmed Problem Acquired hammer toe of left foot (8407952085878912 ) Other hammer toe(s) (acquired), left foot (M20.42) Active confirmed Problem Acquired hammer toe of left foot (4162194361327434 ) Hammer toe of left foot (M20.42) Active confirmed Problem Polyneuropathy due to type 2 diabetes mellitus (564544634) 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.42) Active confirmed Problem Localized, primary osteoarthritis of the ankle and/or foot (182831053) Osteoarthritis of left ankle and foot (M19.072) Active confirmed Plan Of Treatment Pending Test Test Name Order Date [id number] NAIL, 6 OR MORE 01/23/2015 [id number] Plate 01/23/2015 [id number] Plate Each Additional 01/2015 [id number] SKIN LESIONS, OVER 4 01/24/20 15 Insurance Providers Payer Name Payer Address Payer Phone Subscriber Number Group Number Insured Name Patient Relationship to Insured Coverage Start Date Coverage End Date [employer] [place] [employer] Advantage [facility] [address] [place] [address] [id number] Naty Cervantes Self - patient is the insured Medical (General) History Medical History History ICD Code Chicken pox Measles Mumps Hypertension Thyroid disorder Diabetic Arthritis Back,Hip,and Knee pain CAD (Cholesterol) Gall bladder problems Vascular phlebitis (clots) Stroke Cataracts Hearing loss Surgical History Surgery Date(Month/Year) cholecystectomy hysterectomy 1994 back surgery 1991 gall bladder 1970 cataract surgery Hospitalization History Reason Date(Month/Year) [facility]- Stroke- rehab
--- OUTSIDE RECORDS SUMMARY | 2025-09-06 18:16 | XMS_ITS | Encounter Summary ---
Author Organization [facility] Address [address] [place] [address] Care Team Providers Care Production Repairer Name Role Phone Bruce Welch MD Primary Care Provider [phone] Encounter Details Date Type Department Care Team (Late st Contact Info) Description 07/08/2025 Lab Requisition [facility] - Main Lab 299 [facility] [employer] [place] [address] Bruce Welch MD [address] [place], [place] [phone] Type 2 diabetes mellitus without complications (CMS/HCC [...] mmol/L LAB CHEMISTRY METHOD 07/10/2025 4:12 PM [facility] Potassium 4.4 3.5 - 5.5 mmol/L LAB CHEMISTRY METHOD 07/10/2025 4:12 PM [facility] Chloride 103 96 - 110 mmol/L LAB CHEMISTRY METHOD 07/10/2025 4:12 PM [facility] CO2 26 21 - 32 mmol/L LAB CHEMISTRY METHOD 07/10/2025 4:12 PM [facility] Anion Gap 8 3 - 11 LAB CHEMISTRY METHOD 07/10/2025 4:12 PM [facility] Glucose 120(H) 70 - 100 mg/dL LAB CHEMISTRY METHOD 07/10/2025 4:12 PM [facility] BUN 20 5 - 25 mg/dL LAB CHEMISTRY METHOD 07/10/2025 4:12 PM [facility] Creatinine 0.69 0.50 - 1.10 mg/dL LAB CHEMISTRY METHOD 07/10/2025 4:12 PM [facility] eGFR 88 >=60 mL/min/1. 73m2 LAB CHEMISTRY METHOD 07/10/2025 4:12 PM [facility] Comment:Calculation based on the Chronic Kidney Disease Epidemiology Collaboration (CKD-EPI) equation refit without adjustment for race. BUN/Creatinine Ratio 29.0 LAB CHEMISTRY METHOD 07/10/2025 4:12 PM [facility] Calcium 9.7 8.5 - 10.5 mg/dL LAB CHEMISTRY METHOD 07/10/2025 4:12 PM [facility] Blood Venous blood specimen / Unknown Venipuncture / Unknown 07/10/2025 9:59 AM EDT 07/10/2025 10:51 AM EDT us Bruce Welch MD LAB BLOOD ORDERABLES Final Resul t [facility] [address] [place] [address], * (ABNORMAL) Complete blood count (07/10/2025 9:59 AM EDT) [facility] WBC 7.2 4.8 - 10.8 K/mcL LAB HEMETOLOGY METHOD 07/10/2025 1:30 PM EDT [facility] RBC 4.40 3.80 - 4.80 M/mcL LAB HEMETOLOGY METHOD 07/10/2025 1:30 PM EDT [facility] Hemoglobin 11.0(L) 11.5 - 16.0 g/dL LAB HEMETOLOGY METHOD 07/10/2025 1[facility]30 [facility] Hematocrit 36.6 35.0 - 47.0 % LAB HEMETOLOGY METHOD 07/10/2025 1:30 [facility] MCV 82.4 79.0 - 98.0 FL LAB HEMETOLOGY METHOD 07/10/2025 1:30 [facility] MCH 24.8(L) 27.0 - 32.0 pcg LAB HEMETOLOGY METHOD 07/10/2025 1:30 [facility] MCHC 30.1(L) 32.0 - 37.0 g/dL LAB HEMETOLOGY METHOD 07/10/2025 1:30 PM [facility] RDW 15.5(H) 11.0 - 15.0 % LAB HEMETOLOGY METHOD 07/10/2025 1:30 PM EDT [facility] Platelets 451(H) 130 - 400 K/mcL LAB HEMETOLOGY METHOD 07/10/2025 1:30 PM [facility] MPV 10.8 7.0 - 11.0 FL LAB HEMETOLOGY METHOD 07/10/2025 1:30 PM [facility] NRBC 0.0 <1.0 % LAB HEMETOLOGY METHOD 07/10/2025 1:30 PM EDT [facility] NRBC Absolute 0.00 <0.10 K/mcL LAB HEMETOLOGY METHOD 07/10/2025 1:30 PM EDT [facility] Blood Venous blood specimen / Unknown Venipuncture / Unknown 07/10/2025 9:59 AM EDT 07/10/2025 10:51 AM EDT us Bruce Welch MD LAB BLOOD ORDERABLES Final Resul t [facility] [address] [place] [address], documented in this encounter Visit Diagnoses Diagnosis Type 2 diabetes mellitus without complications (CMS/HCC V24, CMS/HCC V28) Anemia, unspecified documented in this encounter Care Teams Production Repairer Relationship Specialty Start Date End Date Bruce Welch MD [address] [place] [address] [address] [place] [address] PCP - General Geriatric Medicine 06/19/25 documented as of this encounter
--- OUTSIDE RECORDS SUMMARY | 2025-09-06 18:16 | XMS_ITS | Encounter Summary ---
Author Organization [facility] Address [address] [place] [address] Care Team Providers Care Fruit Bar Maker Name Role Phone Bruce Welch MD Primary Care Provider [phone] Encounter Details Date Type Department Care Team (Late st Contact Info) Description 07/05/2025 Lab Requisition [facility] - Main Lab 299 [facility] [employer] [place] [address] Bruce Welch MD [address] [place], [place] [phone] Essential (primary) hypertension; Hypomagnesemia Social History Tobacco [...] mg/dL LAB CHEMISTRY METHOD 07/05/2025 11:16 AM [facility] Blood Venous blood specimen / Unknown Venipuncture / Unknown 07/05/2025 6:12 AM EDT 07/05/2025 9:34 AM EDT us Bruce Welch MD LAB BLOOD ORDERABLES Final Resul t [facility] [address] [place] [address], * Basic metabolic panel (07/05/2025 6:12 AM EDT) Sodium 140 133 - 145 mmol/L LAB CHEMISTRY METHOD 07/05/2025 11:16 AM [facility] Potassium 4.6 3.5 - 5.5 mmol/L LAB CHEMISTRY METHOD 07/05/2025 11:16 AM [facility] Chloride 103 96 - 110 mmol/L LAB CHEMISTRY METHOD 07/05/2025 11:16 AM [facility] CO2 32 21 - 32 mmol/L LAB CHEMISTRY METHOD 07/05/2025 11:16 AM [facility] Anion Gap 5 3 - 11 LAB CHEMISTRY METHOD 07/05/2025 11:16 AM [facility] Glucose 91 70 - 100 mg/dL LAB CHEMISTRY METHOD 07/05/2025 11:16 AM [facility] BUN 16 5 - 25 mg/dL LAB CHEMISTRY METHOD 07/05/2025 11:16 AM [facility] Creatinine 0.70 0.50 - 1.10 mg/dL LAB CHEMISTRY METHOD 07/05/2025 11:16 AM [facility] eGFR 88 >=60 mL/min/1. 73m2 LAB CHEMISTRY METHOD 07/05/2025 11:16 AM [facility] Comment:Calculation based on the Chronic Kidney Disease Epidemiology Collaboration (CKD-EPI) equation refit without adjustment for race. BUN/Creatinine Ratio 22.9 LAB CHEMISTRY METHOD 07/05/2025 11:16 AM EDT [facility] Calcium 8.9 8.5 - 10.5 mg/dL LAB CHEMISTRY METHOD 07/05/2025 11:16 AM EDT [facility] Blood Venous blood specimen / Unknown Venipuncture / Unknown 07/05/2025 6:12 AM EDT 07/05/2025 9:34 AM EDT us Bruce Welch MD LAB BLOOD ORDERABLES Final Resul t [facility] [address] [place] [address], [place] [phone] * (ABNORMAL) Complete blood count (07/05/2025 6:12 AM EDT) WBC 9.1 4.8 - 10.8 K/mcL LAB HEMETOLOGY METHOD 07/05/2025 10:26 AM [facility] RBC 4.30 3.80 - 4.80 M/mcL LAB HEMETOLOGY METHOD 07/05/2025 10:26 AM [facility] Hemoglobin 10.7(L) 11.5 - 16.0 g/dL LAB HEMETOLOGY METHOD 07/05/2025 10:26 AM [facility] Hematocrit 35.4 35.0 - 47.0 % LAB HEMETOLOGY METHOD 07/05/2025 10:26 AM [facility] MCV 81.6 79.0 - 98.0 FL LAB HEMETOLOGY METHOD 07/05/2025 10:26 AM [facility] MCH 24.7(L) 27.0 - 32.0 pcg LAB HEMETOLOGY METHOD 07/05/2025 10:26 AM [facility] MCHC 30.2(L) 32.0 - 37.0 g/dL LAB HEMETOLOGY METHOD 07/05/2025 10:26 AM EDT [facility] RDW 15.9(H) 11.0 - 15.0 % LAB HEMETOLOGY METHOD 07/05/2025 10:26 AM EDT [facility] Platelets 387 130 - 400 K/mcL LAB HEMETOLOGY METHOD 07/05/2025 10:26 AM EDT [facility] MPV 10.6 7.0 - 11.0 FL LAB HEMETOLOGY METHOD 07/05/2025 10:26 AM EDT [facility] NRBC 0.0 <1.0 % LAB HEMETOLOGY METHOD 07/05/2025 10:26 AM EDT [facility] NRBC Absolute 0.00 <0.10 K/mcL LAB HEMETOLOGY METHOD 07/05/2025 10:26 AM EDT [facility] Blood Venous blood specimen / Unknown Venipuncture / Unknown 07/05/2025 6:12 AM EDT 07/05/2025 9:34 AM EDT Bruce Welch MD LAB BLOOD ORDERABLES Final Resul t [facility] [address] [place] [address], documented in this encounter Visit Diagnoses Diagnosis Essential (primary) hypertension Unspecified essential hypertension Hypomagnesemia Disorders of magnesium metabolism documented in this encounter Care Teams Fruit Bar Maker Relationship Specialty Start Date End Date Bruce Welch MD [address] [place], [place] [id number] [place] [address] PCP - General Geriatric Medicine 06/19/25 documented as of this encounter
--- OUTSIDE RECORDS SUMMARY | 2025-09-06 18:16 | XMS_ITS | Clinical Summary ---
Author Organization [facility] Address [address] [address] Phone Care Team Providers Care Medical Billing Associate Name Role Phone Trevor Rios MD Primary [...] 4 (four) times a day. 08/18/2024 Active Social History Tobacco Use Types Packs/Day Years [...] file Medical Devices Not on file Insurance MEDICARE HMO REPLACEMENT [place] REPLACEMENT MEDICARE HMO [employer]AC[employer] [place] MED[employer] HMO REPLACEMENT [employer] [place] MEDIC[place] H[place] REPLACEMENT Advance Directives For more information, please contact: [phone] (9AM - 5PM [place], Thursday-Thursday) Documents on File Type Date Recorded Patient Dining Room Server Expl anation MOLST 08/05/2024 Care Teams Medical Billing Associate Relationship Specialty Start Date End Date Trevor Rios MD [address] [place] [address] PCP - General Internal Medicine 09/02/24 Additional Source Comments The information contained in this document represents components of the legal health record. It is not the complete legal health record.[facility]
--- OUTSIDE RECORDS SUMMARY | 2025-09-06 18:16 | XMS_ITS | Encounter Summary ---
Author Organization [facility] Address [address] [place] [address] Care Team Providers Care Mastic Worker Name Role Phone Bruce Welch MD Primary Care Provider [phone] Encounter Details Date Type Department Care Team (Late st Contact Info) Description 06/19/2025 Lab Requisition [facility] - Main Lab [address] [facility] [place] [address] Bruce Welch MD [address] [place], [place] [id number] Anemia, unspecified; Type 2 diabetes mellitus without [...] unspecified Type 2 diabetes mellitus without complications ([facility] V24, [facility] V28) Hyperlipidemia, unspecified Hypothyroidism, unspecified Magnesium deficiency Vitamin B12 deficiency anemia, unspecified Vitamin D deficiency, unspecified LIPID PANEL WITH REFLEX TO DIRECT LDL Routine 06/19/2025 5:26 AM EDT Anemia, unspecified Type 2 diabetes mellitus without complications ([facility] V24, [facility] V28) Hyperlipidemia, unspecified Hypothyroidism, unspecified Magnesium deficiency Vitamin B12 deficiency anemia, unspecified Vitamin D deficiency, unspecified VITAMIN D 25 HYDROXY Routine 06/19/2025 5:26 AM EDT Anemia, unspecified Type 2 diabetes mellitus without complications ([facility] V24, [facility] V28) Hyperlipidemia, unspecified Hypothyroidism, unspecified Magnesium deficiency Vitamin B12 deficiency anemia, unspecified Vitamin D deficiency, unspecified COMPLETE BLOOD COUNT Routine 06/19/2025 5:26 AM EDT Anemia, unspecified Type 2 diabetes mellitus without complications ([facility] V24, [facility] V28) Hyperlipidemia, unspecified Hypothyroidism, unspecified Magnesium deficiency Vitamin B12 deficiency anemia, unspecified Vitamin D deficiency, unspecified TRIIODOTHYRONINE FREE Routine 06/19/2025 5:26 AM EDT Anemia, unspecified Type 2 diabetes mellitus without complications ([facility] V24, [facility] V28) Hyperlipidemia, unspecified Hypothyroidism, unspecified Magnesium deficiency Vitamin B12 deficiency anemia, unspecified Vitamin D deficiency, unspecified MAGNESIUM Routine 06/19/2025 5:26 AM EDT Anemia, unspecified Type 2 diabetes mellitus without complications ([facility] V24, [facility] V28) Hyperlipidemia, unspecified Hypothyroidism, unspecified Magnesium deficiency Vitamin B12 deficiency anemia, unspecified Vitamin D deficiency, unspecified COMPREHENSIVE METABOLIC PANEL Routine 06/19/2025 5:26 AM EDT Anemia, unspecified Type 2 diabetes mellitus without complications ([facility] V24, [facility] V28) Hyperlipidemia, unspecified Hypothyroidism, unspecified Magnesium deficiency Vitamin B12 deficiency anemia, unspecified Vitamin D deficiency, unspecified documented in this encounter Results * (ABNORMAL) Triiodothyronine free (06/19/2025 5:26 AM EDT) T3, Free 193(L) 230 - 420 pcg/dL LAB CHEMISTRY METHOD 06/19/2025 7:36 PM EDT [facility] Blood Venous blood specimen / Unknown Venipuncture / Unknown 06/19/2025 5:26 AM EDT 06/19/2025 10:47 AM EDT us Bruce Welch MD LAB BLOOD ORDERABLES Final Resul t Performing Organization Address City/[facility]/ZIP Co de Phone Number [facility] [address] [place] [address], [place] [phone] * Free thyroxine with reflex to free triiodothyronine (06/19/2025 5:26 AM EDT) Free T4 1.40 0.70 - 1.80 ng/dL LAB CHEMISTRY METHOD 06/19/2025 6:04 PM EDT [facility] Blood Venous blood specimen / Unknown Venipuncture / Unknown 06/19/2025 5:26 AM EDT 06/19/2025 10:47 AM EDT us Bruce Welch MD LAB BLOOD ORDERABLES Final Resul t Performing Organization Address City/[facility]/ZIP Co de Phone Number [facility] [address] [place] [address], [place] [phone] * Vitamin D 25 hydroxy (06/19/2025 5:26 AM EDT) Vit D, 25-Hydroxy 72.3 30.0 - 80.0 ng/mL LAB CHEMISTRY METHOD 06/19/2025 1:24 PM EDT [facility] Blood Venous blood specimen / Unknown Venipuncture / Unknown 06/19/2025 5:26 AM EDT 06/19/2025 10:47 AM EDT us Bruce Welch MD LAB BLOOD ORDERABLES Final Resul t Performing Organization Address City/[facility] Co de Phone Number [facility] [address] [place] [address], [place] [phone] * Vitamin B12 and folate (06/19/2025 5:26 AM EDT) Vitamin B-12 774 250 - 900 pcg/mL LAB CHEMISTRY METHOD 06/19/2025 11:51 AM EDT [facility] Folate 6.4 2.8 - 17.0 ng/ml LAB CHEMISTRY METHOD 06/19/2025 11:51 AM EDT [facility] Blood Venous blood specimen / Unknown Venipuncture / Unknown 06/19/2025 5:26 AM EDT 06/19/2025 10:47 AM EDT us Bruce Welch MD LAB BLOOD ORDERABLES Final Resul t Performing Organization Address [facility]/ZIP Co de Phone Number [facility] [address] [place] [address], [place] [phone] * (ABNORMAL) Magnesium (06/19/2025 5:26 AM EDT) Magnesium 1.7(L) 1.9 - 2.6 mg/dL LAB CHEMISTRY METHOD 06/19/2025 11:29 AM EDT [facility] Blood Venous blood specimen / Unknown Venipuncture / Unknown 06/19/2025 5:26 AM EDT 06/19/2025 10:47 AM EDT us Bruce Welch MD LAB BLOOD ORDERABLES Final Resul t [facility] [address] [place] [address], [place] [phone] * (ABNORMAL) Thyroid stimulating hormone with reflex to free t4 and free t3 (06/19/2025 5:26 AM EDT) [facility] TSH 0.05(L) 0.40 - 4.00 mcIU/mL LAB CHEMISTRY METHOD 06/19/2025 5:27 PM EDT [facility] Blood Venous blood specimen / Unknown Venipuncture / Unknown 06/19/2025 5:26 AM EDT 06/19/2025 10:47 AM EDT us Bruce Welch MD LAB BLOOD ORDERABLES Final Resul t [facility] [address] [place] [address], [place] [phone] * Lipid panel with reflex to direct LDL (06/19/2025 5:26 AM EDT) [facility] Cholesterol 116 0 - 200 mg/dL LAB CHEMISTRY METHOD 06/19/2025 11:51 AM EDT [facility] Triglycerides 72 0 - 150 mg/dL LAB CHEMISTRY METHOD 06/19/2025 11:51 AM EDT [facility] HDL 58 >=40 mg/dL LAB CHEMISTRY METHOD 06/19/2025 11:51 AM EDT [facility] LDL Calculated 44 0 - 100 mg/dL LAB CHEMISTRY METHOD 06/19/2025 11:51 AM EDT [facility] VLDL Cholesterol Apolinar 14.4 mg/dL LAB CHEMISTRY METHOD 06/19/2025 11:51 AM EDT [facility] Non HDL Chol. (LDL+VLDL) 58 <145 mg/dL LAB CHEMISTRY METHOD 06/19/2025 11:[address] [facility] Chol/HDL Ratio 2.0 0.0 - 4.4 LAB CHEMISTRY METHOD 06/19/2025 11:[address] [facility] Blood Venous blood specimen / Unknown Venipuncture / Unknown 06/19/2025 5:26 AM EDT 06/19/2025 10:47 AM EDT us Bruce Welch MD LAB BLOOD ORDERABLES Final Resul t [facility] [address] [place] [address], * (ABNORMAL) Comprehensive metabolic panel (06/19/2025 5:26 AM EDT) Sodium 139 133 - 145 mmol/L LAB CHEMISTRY METHOD 06/19/2025 11:[address] [facility] Potassium 3.9 3.5 - 5.5 mmol/L LAB CHEMISTRY METHOD 06/19/2025 11:[address] [facility] Chloride 104 96 - 110 mmol/L LAB CHEMISTRY METHOD 06/19/2025 11:[address] [facility] CO2 27 21 - 32 mmol/L LAB CHEMISTRY METHOD 06/19/2025 11:[address] [facility] Anion Gap 8 3 - 11 LAB CHEMISTRY METHOD 06/19/2025 11:[address] [facility] Glucose 70 70 - 100 mg/dL LAB CHEMISTRY METHOD 06/19/2025 11:[address] [facility] BUN 27(H) 5 - 25 mg/dL LAB CHEMISTRY METHOD 06/19/2025 11:[address] [facility] Creatinine 0.91 0.50 - 1.10 mg/dL LAB CHEMISTRY METHOD 06/19/2025 11:[address] [facility] eGFR 64 >=60 mL/min/1. 73m2 LAB CHEMISTRY METHOD 06/19/2025 11:[address] [facility] Comment:Calculation based on the Chronic Kidney Disease Epidemiology Collaboration (CKD-EPI) equation refit without adjustment for race. BUN/Creatinine Ratio 29.7 LAB CHEMISTRY METHOD 06/19/2025 11:[address] [facility] Calcium 9.3 8.5 - 10.5 mg/dL LAB CHEMISTRY METHOD 06/19/2025 11:[address] [facility] AST (SGOT) 22 10 - 42 unit/L LAB CHEMISTRY METHOD 06/19/2025 11:[address] [facility] ALT (SGPT) 26 10 - 60 unit/L LAB CHEMISTRY METHOD 06/19/2025 11:[address] [facility] Alkaline Phosphatase 158(H) 42 - 121 unit/L LAB CHEMISTRY METHOD 06/19/2025 11:[address] [facility] Total Protein 5.8(L) 6.0 - 8.0 g/dL LAB CHEMISTRY METHOD 06/19/2025 11:[address] [facility] Albumin 2.8(L) 3.2 - 5.0 g/dL LAB CHEMISTRY METHOD 06/19/2025 11:[address] [facility] Total Bilirubin 0.5 0.0 - 1.4 mg/dL LAB CHEMISTRY METHOD 06/19/2025 11:[address] [facility] Blood Venous blood specimen / Unknown Venipuncture / Unknown 06/19/2025 5:26 AM EDT 06/19/2025 10:47 AM EDT us Bruce Welch MD LAB BLOOD ORDERABLES Final Resul t [facility] [address] [place] [address], * (ABNORMAL) Complete blood count (06/19/2025 5:26 AM EDT) [facility] WBC 8.4 4.8 - 10.8 K/mcL LAB HEMETOLOGY METHOD 06/19/2025 11:[address] [facility] RBC 4.40 3.80 - 4.80 M/mcL LAB HEMETOLOGY METHOD 06/19/2025 11:[address] [facility] Hemoglobin 11.0(L) 11.5 - 16.0 g/dL LAB HEMETOLOGY METHOD 06/19/2025 11:[address] [facility] Hematocrit 36.2 35.0 - 47.0 % LAB HEMETOLOGY METHOD 06/19/2025 11:[address] [facility] MCV 83.0 79.0 - 98.0 FL LAB HEMETOLOGY METHOD 06/19/2025 11:[address] [facility] MCH 25.2(L) 27.0 - 32.0 pcg LAB HEMETOLOGY METHOD 06/19/2025 11:[address] [facility] MCHC 30.4(L) 32.0 - 37.0 g/dL LAB HEMETOLOGY METHOD 06/19/2025 11:[address] [facility] RDW 17.2(H) 11.0 - 15.0 % LAB HEMETOLOGY METHOD 06/19/2025 11:[address] [facility] Platelets 254 130 - 400 K/mcL LAB HEMETOLOGY METHOD 06/19/2025 11:[address] [facility] MPV 11.4(H) 7.0 - 11.0 FL LAB HEMETOLOGY METHOD 06/19/2025 11:[address] [facility] NRBC 0.0 <1.0 % LAB HEMETOLOGY METHOD 06/19/2025 11:[address] [facility] NRBC Absolute 0.00 <0.10 K/[facility] LAB HEMETOLOGY METHOD 06/19/2025 11:23 AM EDT [facility] Blood Venous blood specimen / Unknown Venipuncture / Unknown 06/19/2025 5:26 AM EDT 06/19/2025 10:47 AM EDT Bruce Welch MD LAB BLOOD ORDERABLES Final Resul t [facility] [address] [place] [address], documented in this encounter Visit Diagnoses Diagnosis Anemia, unspecified Type 2 diabetes mellitus without complications (CMS/HCC V24, CMS/HCC V28) Hyperlipidemia, unspecified Hypothyroidism, unspecified Magnesium deficiency Disorders of magnesium metabolism Vitamin B12 deficiency anemia, unspecified Vitamin D deficiency, unspecified documented in this encounter Care Teams Mastic Worker Relationship Specialty Start Date End Date Bruce Welch MD [address] [place] [address] [address] [place] [address] PCP - General Geriatric Medicine 06/19/25 documented as of this encounter
--- OUTSIDE RECORDS SUMMARY | 2025-09-06 18:16 | XMS_ITS | Encounter Summary ---
Author Organization [facility] Address [address] [place] [address] Care Team Providers Care Cloth Bale Header Name Role Phone Bruce Welch MD Primary Care Provider [phone] Encounter Details Date Type Department Care Team (Late st Contact Info) Description 06/30/2025 Lab Requisition [facility] - Main Lab [address] [facility] [place] [address] Bruce Welch MD [address] [place], [place] [id number] Type 2 diabetes mellitus without complications (CMS/HCC [...] mmol/L LAB CHEMISTRY METHOD 07/03/2025 1:00 PM [facility] Potassium 4.2 3.5 - 5.5 mmol/L LAB CHEMISTRY METHOD 07/03/2025 1:00 PM [facility] Chloride 102 96 - 110 mmol/L LAB CHEMISTRY METHOD 07/03/2025 1:00 PM [facility] CO2 31 21 - 32 mmol/L LAB CHEMISTRY METHOD 07/03/2025 1:00 PM [facility] Anion Gap 6 3 - 11 LAB CHEMISTRY METHOD 07/03/2025 1:00 PM [facility] Glucose 74 70 - 100 mg/dL LAB CHEMISTRY METHOD 07/03/2025 1:00 PM [facility] BUN 15 5 - 25 mg/dL LAB CHEMISTRY METHOD 07/03/2025 1:00 PM [facility] Creatinine 0.72 0.50 - 1.10 mg/dL LAB CHEMISTRY METHOD 07/03/2025 1:00 PM [facility] eGFR 85 >=60 mL/min/1. 73m2 LAB CHEMISTRY METHOD 07/03/2025 1:00 PM [facility] Comment:Calculation based on the Chronic Kidney Disease Epidemiology Collaboration (CKD-EPI) equation refit without adjustment for race. BUN/Creatinine Ratio 20.8 LAB CHEMISTRY METHOD 07/03/2025 1:00 PM [facility] Calcium 9.4 8.5 - 10.5 mg/dL LAB CHEMISTRY METHOD 07/03/2025 1:00 PM [facility] Blood Venous blood specimen / Unknown Venipuncture / Unknown 07/03/2025 8:21 AM EDT 07/03/2025 11:55 AM EDT us Bruce Welch MD LAB BLOOD ORDERABLES Final Resul t [facility] [address] [place] [address], * (ABNORMAL) Complete blood count (07/03/2025 8:21 AM EDT) [facility] WBC 10.6 4.8 - 10.8 K/mcL LAB HEMETOLOGY METHOD 07/03/2025 1:24 PM EDT [facility] RBC 4.00 3.80 - 4.80 M/mcL LAB HEMETOLOGY METHOD 07/03/2025 1:24 PM EDT [facility] Hemoglobin 9.9(L) 11.5 - 16.0 g/dL LAB HEMETOLOGY METHOD [facility]/03[facility] Hematocrit 33.4(L) 35.0 - 47.0 % LAB HEMETOLOGY METHOD 07/03/2025 1:24 PM [facility] MCV 82.9 79.0 - 98.0 FL LAB HEMETOLOGY METHOD 07/03/2025 [facility] MCH 24.6(L) 27.0 - 32.0 pcg LAB HEMETOLOGY METHOD 07/03/2025 1:24 PM [facility] MCHC 29.6(L) 32.0 - 37.0 g/dL LAB HEMETOLOGY METHOD 07/03/2025 1:24 PM [facility] RDW 16.0(H) 11.0 - 15.0 % LAB HEMETOLOGY METHOD 07/03/2025 1:24 PM T [facility] Platelets 419(H) 130 - 400 K/mcL LAB HEMETOLOGY METHOD 07/03/2025 1:24 PM [facility] MPV 10.6 7.0 - 11.0 FL LAB HEMETOLOGY METHOD 07/03/2025 1:[facility] NRBC 0.0 <1.0 % LAB HEMETOLOGY METHOD 07/03/2025 1:24 PM EDT [facility] NRBC Absolute 0.00 <0.10 K/mcL LAB HEMETOLOGY METHOD 07/03/2025 1:24 PM EDT [facility] Blood Venous blood specimen / Unknown Venipuncture / Unknown 07/03/2025 8:21 AM EDT 07/03/2025 11:55 AM EDT Bruce Welch MD LAB BLOOD ORDERABLES Final Resul t [facility] [address] [place] [address], documented in this encounter Visit Diagnoses Diagnosis Type 2 diabetes mellitus without complications (CMS/HCC V24, CMS/HCC V28) Anemia, unspecified documented in this encounter Care Teams Cloth Bale Header Relationship Specialty Start Date End Date Bruce Welch MD [address] [place] [address] [address] [place] [address] PCP - General Geriatric Medicine 06/19/25 documented as of this encounter
--- OUTSIDE RECORDS SUMMARY | 2025-09-06 18:16 | XMS_ITS | Encounter Summary ---
Author Organization [facility] Address [address] [place] [address] Care Team Providers Care Accounting Auditor Name Role Phone Bruce Welch MD Primary Care Provider Encounter Details Date Type Department Care Team (Late st Contact Info) Description 04/16/2025 Lab Requisition [facility] - Main Lab [address] [facility] [place] [address] Bruce Welch MD [address] [place], [place] [id number] Vitamin D deficiency, unspecified; Essential (primary) hypertension; [...] 2 diabetes mellitus without complications (CMS/HCC V24, CMS/[facility] V28) documented in this encounter Results * Basic metabolic panel (04/18/2025 6:41 AM EDT) Sodium 138 133 - 145 mmol/L LAB CHEMISTRY METHOD 04/18/2025 12:48 PM [facility] Potassium 4.5 3.5 - 5.5 mmol/L LAB CHEMISTRY METHOD 04/18/2025 12:48 PM [facility] Chloride 102 96 - 110 mmol/L LAB CHEMISTRY METHOD 04/18/2025 12:48 PM [facility] CO2 26 21 - 32 mmol/L LAB CHEMISTRY METHOD 04/18/2025 12:48 PM [facility] Anion Gap 10 3 - 11 LAB CHEMISTRY METHOD 04/18/2025 12:48 PM [facility] Glucose 73 70 - 100 mg/dL LAB CHEMISTRY METHOD 04/18/2025 12:48 PM [facility] BUN 16 5 - 25 mg/dL LAB CHEMISTRY METHOD 04/18/2025 12:48 PM [facility] Creatinine 0.68 0.50 - 1.10 mg/dL LAB CHEMISTRY METHOD 04/18/2025 12:48 PM [facility] eGFR 89 >=60 mL/min/1. 73m2 LAB CHEMISTRY METHOD 04/18/2025 12:48 PM [facility] Comment:Calculation based on the Chronic Kidney Disease Epidemiology Collaboration (CKD-EPI) equation refit without adjustment for race. BUN/Creatinine Ratio 23.5 LAB CHEMISTRY METHOD 04/18/2025 12:48 PM [facility] Calcium 9.2 8.5 - 10.5 mg/dL LAB CHEMISTRY METHOD 04/18/2025 12:48 PM [facility] Blood Venous blood specimen / Unknown Venipuncture / Unknown 04/18/2025 6:41 AM EDT 04/18/2025 10:47 AM EDT us Bruce Welch MD LAB BLOOD ORDERABLES Final Resul t [facility] [address] [place] [address], [place] [phone] * (ABNORMAL) Complete blood count (04/18/2025 6:41 AM EDT) WBC 8.4 4.8 - 10.8 K/mcL LAB HEMETOLOGY METHOD 04/18/2025 12:24 PM EDT [facility] RBC 3.60(L) 3.80 - 4.80 M/mcL LAB HEMETOLOGY METHOD 04/18/2025 12:24 PM EDT [facility] Hemoglobin 8.7(L) 11.5 - 16.0 g/dL LAB HEMETOLOGY METHOD 04/18/2025 12:24 PM EDT [facility] Hematocrit 29.8(L) 35.0 - 47.0 % LAB HEMETOLOGY METHOD 04/18/2025 12:24 PM EDT [facility] MCV 83.7 79.0 - 98.0 FL LAB HEMETOLOGY METHOD 04/18/2025 12:24 PM EDT [facility] MCH 24.4(L) 27.0 - 32.0 pcg LAB HEMETOLOGY METHOD 04/18/2025 12:24 PM EDT [facility] MCHC 29.2(L) 32.0 - 37.0 g/dL LAB HEMETOLOGY METHOD 04/18/2025 12:24 PM EDT [facility] RDW 15.3(H) 11.0 - 15.0 % LAB HEMETOLOGY METHOD 04/18/2025 12:24 PM EDT [facility] Platelets 411(H) 130 - 400 K/mcL LAB HEMETOLOGY METHOD 04/18/2025 12:24 PM EDT [facility] MPV 11.1(H) 7.0 - 11.0 FL LAB HEMETOLOGY METHOD 04/18/2025 12:24 PM EDT [facility] NRBC 0.0 <1.0 % LAB HEMETOLOGY METHOD 04/18/2025 12:24 PM EDT [facility] NRBC Absolute 0.00 <0.10 K/mcL [facility] 04/18/[facility]25 12:24 PM EDT [facility] Blood Venous blood specimen / Unknown Venipuncture / Unknown 04/18/2025 6:41 AM EDT 04/18/2025 10:47 AM EDT Bruce Welch MD LAB BLOOD ORDERABLES Final Resul t [facility] [address] [place] [address], documented in this encounter Visit Diagnoses Diagnosis Vitamin D deficiency, unspecified Essential (primary) hypertension Unspecified essential hypertension Unspecified atrial fibrillation (CMS/HCC V24, CMS/HCC V28) Type 2 diabetes mellitus without complications (CMS/HCC V24, CMS/HCC V28) documented in this encounter Care Teams Accounting Auditor Relationship Specialty Start Date End Date Bruce Welch MD [address] [place] [address] [address] [place] [address] PCP - General Geriatric Medicine 06/19/25 documented as of this encounter
--- OUTSIDE RECORDS SUMMARY | 2025-09-06 18:16 | XMS_ITS | Clinical Summary ---
Author Organization [address] Address [address] [place] [phone] Phone Care Team Providers Care Blueprint Cutter Name Role Phone Bruce Welch MD Primary Care Provider [phone] Encounters Date Type Department Care Team Description 07/14/2025 Lab Requisition [facility] - Main Lab 299 [facility] [place] [phone] Bruce Welch MD Type 2 diabetes mellitus without complications ([facility] V24, CMS/[facility] V28); Anemia, unspecified 07/08/2025 Lab Requisition [facility] Lab 299 [facility] [place] [phone] Bruce Welch MD Type 2 diabetes mellitus without complications (CMS/[facility] V24, CMS/[facility] V28); Anemia, unspecified 07/05/2025 Lab Requisition [facility] Lab 299 [facility] [place] [phone] Bruce Welch MD Essential (primary) hypertension; Hypomagnesemia 06/30/2025 Lab Requisition [facility] Main Lab 299 [facility] [place] [phone] Bruce Welch MD Type 2 diabetes mellitus without complications (CMS/HCC V24, CMS/[facility] V28); Anemia, unspecified 06/24/2025 Lab Requisition [facility] Main Lab 299 [facility] [place] [phone] Bruce Welch MD Type 2 diabetes mellitus without complications (CMS/HCC V24, CMS/[facility] V28); Anemia, unspecified 06/19/2025 Lab Requisition [facility] - Main Lab 299 [facility] [place] [phone] Bruce Welch MD Anemia, unspecified; Type 2 diabetes mellitus without complications ([facility] V24, [facility] V28); Hyperlipidemia, unspecified; Hypothyroidism, unspecified; Magnesium deficiency; [...] 2 diabetes mellitus without complications (CMS/HCC V24, [facility] V28) Anemia, unspecified COMPLETE BLOOD COUNT Routine 07/03/2025 8:21 AM EDT Type 2 diabetes mellitus without complications ([facility] V24, [facility] V28) Anemia, unspecified BASIC METABOLIC PANEL Routine 06/26/2025 10:03 AM EDT Type 2 diabetes mellitus without complications ([facility] V24, [facility] V28) Anemia, unspecified COMPLETE BLOOD COUNT Routine 06/26/2025 10:03 AM EDT Type 2 diabetes mellitus without complications ([facility] V24, [facility] V28) Anemia, unspecified TRIIODOTHYRONINE FREE Routine 06/19/2025 5:26 AM EDT Anemia, unspecified Type 2 diabetes mellitus without complications ([facility] V24, [facility] V28) Hyperlipidemia, unspecified Hypothyroidism, unspecified Magnesium deficiency Vitamin B12 deficiency anemia, unspecified Vitamin D deficiency, unspecified FREE THYROXINE WITH REFLEX TO FREE TRIIODOTHYRONINE Routine 06/19/2025 5:26 AM EDT Anemia, unspecified Type 2 diabetes mellitus without complications ([facility] V24, [facility] V28) Hyperlipidemia, unspecified Hypothyroidism, unspecified Magnesium deficiency Vitamin B12 deficiency anemia, unspecified Vitamin D deficiency, unspecified VITAMIN D 25 HYDROXY Routine 06/19/2025 5:26 AM EDT Anemia, unspecified Type 2 diabetes mellitus without complications ([facility] V24, [facility] V28) Hyperlipidemia, unspecified Hypothyroidism, unspecified Magnesium deficiency Vitamin B12 deficiency anemia, unspecified Vitamin D deficiency, unspecified VITAMIN B12 AND FOLATE Routine 5:26 AM EDT Anemia, unspecified Type 2 diabetes mellitus without complications ([facility] V24, [facility] V28) Hyperlipidemia, unspecified Hypothyroidism, unspecified Magnesium deficiency Vitamin B12 deficiency anemia, unspecified Vitamin D deficiency, unspecified MAGNESIUM Routine 06/19/2025 5:26 AM EDT Anemia, unspecified Type 2 diabetes mellitus without complications ([facility]/HCC V24, CMS/[facility] V28) Hyperlipidemia, unspecified Hypothyroidism, unspecified Magnesium deficiency Vitamin B12 deficiency anemia, unspecified Vitamin D deficiency, unspecified THYROID STIMULATING HORMONE WITH REFLEX TO FREE T4 AND FREE T3 Routine 06/19/2025 5:26 AM EDT Anemia, unspecified Type 2 diabetes mellitus without complications ([facility] V24, [facility] V28) Hyperlipidemia, unspecified Hypothyroidism, unspecified Magnesium deficiency Vitamin B12 deficiency anemia, unspecified Vitamin D deficiency, unspecified LIPID PANEL WITH REFLEX TO DIRECT LDL Routine 06/19/2025 5:26 AM EDT Anemia, unspecified Type 2 diabetes mellitus without complications (CMS/[facility] V24, CMS/[facility] V28) Hyperlipidemia, unspecified Hypothyroidism, unspecified Magnesium deficiency Vitamin B12 deficiency anemia, unspecified Vitamin D deficiency, unspecified COMPREHENSIVE METABOLIC PANEL Routine 06/19/2025 5:26 AM EDT Anemia, unspecified Type 2 diabetes mellitus without complications ([facility] V24, CMS/[facility] V28) Hyperlipidemia, unspecified Hypothyroidism, unspecified Magnesium deficiency Vitamin B12 deficiency anemia, unspecified Vitamin D deficiency, unspecified COMPLETE BLOOD COUNT Routine 06/19/2025 5:26 AM EDT Anemia, unspecified Type 2 diabetes mellitus without complications ([facility] V24, CMS/[facility] V28) Hyperlipidemia, unspecified Hypothyroidism, unspecified Magnesium deficiency Vitamin B12 deficiency anemia, unspecified Vitamin D deficiency, unspecified HEMOGLOBIN A1C Routine 04/10/2025 7:55 AM EDT Vitamin D deficiency, unspecified Essential (primary) hypertension Unspecified atrial fibrillation (CMS/[facility] V24, CMS/[facility] V28) Type 2 diabetes mellitus without complications (CMS/[facility] V24, CMS/[facility] V28) from Last 3 Months or Most Recently Relevant to Health Maintenance Results * (ABNORMAL) Complete blood count (07/10/2025 9:59 AM EDT) Only the most recent of5 resultswithin the time period is included. WBC 7.2 4.8 - 10.8 K/mcL LAB HEMETOLOGY METHOD 07/10/2025 1:30 PM EDT [facility] LAB RBC 4.40 3.80 - 4.80 M/mcL LAB HEMETOLOGY METHOD 07/10/2025 1:30 PM EDT [facility] LAB Hemoglobin 11.0(L) 11.5 - 16.0 g/dL LAB HEMETOLOGY METHOD 07/10/2025 1:30 PM EDT [facility] LAB Hematocrit 36.6 35.0 - 47.0 % LAB HEMETOLOGY METHOD 07/10/2025 1:30 PM EDT [facility] LAB MCV 82.4 79.0 - 98.0 FL LAB H[facility]OLOGY METHOD [facility] MCH 24.8(L) 27.0 - 32.0 pcg LAB HEMETOLOGY METHOD 07/10/2025 1[facility] MCHC 30.1(L) 32.0 - 37.0 g/dL LAB HEMETOLOGY METHOD 07/10/2025 1:[facility] RDW 15.5(H) 11.0 - 15.0 % LAB HEMETOLOGY METHOD 07/10/2025 1:30 PM EDT [facility] LAB Platelets 451(H) 130 - 400 K/[facility] LAB HEMETOLOGY METHOD 07/10/2025 1:30 PM EDT [facility] LAB MPV 10.8 7.0 - 11.0 FL LAB HEMETOLOGY METHOD 07/10/2025 1:30 PM EDT [facility] LAB NRBC 0.0 <1.0 % LAB HEMETOLOGY METHOD 07/10/2025 1:30 PM EDT [facility] LAB NRBC Absolute 0.00 <0.10 K/[facility] LAB HEMETOLOGY METHOD 07/10/2025 1:30 PM EDT [facility] LAB Blood Venous blood specimen / Unknown Venipuncture / Unknown 07/10/2025 9:59 AM EDT 07/10/2025 10:51 AM EDT us Bruce Welch MD LAB BLOOD ORDERABLES Final Resul t [facility] LAB [address] [place] [address], * (ABNORMAL) Basic metabolic panel (07/10/2025 9:59 AM EDT) Only the most recent of4 resultswithin the time period is included. Sodium 137 133 - 145 mmol/L LAB CHEMISTRY METHOD 07/10/2025 4:12 PM [facility] LAB Potassium 4.4 3.5 - 5.5 mmol/L LAB CHEMISTRY METHOD 07/10/2025 4:12 PM [facility] LAB Chloride 103 96 - 110 mmol/L LAB CHEMISTRY METHOD 07/10/2025 4:12 PM [facility] LAB CO2 26 21 - 32 mmol/L LAB CHEMISTRY METHOD 07/10/2025 4:12 PM [facility] LAB Anion Gap 8 3 - 11 LAB CHEMISTRY METHOD 07/10/2025 4:12 PM [facility] LAB Glucose 120(H) 70 - 100 mg/dL LAB CHEMISTRY METHOD 07/10/2025 4:12 PM [facility] LAB BUN 20 5 - 25 mg/dL LAB CHEMISTRY METHOD 07/10/2025 4:12 PM [facility] LAB Creatinine 0.69 0.50 - 1.10 mg/dL LAB CHEMISTRY METHOD 07/10/2025 4:12 PM [facility] LAB eGFR 88 >=60 mL/min/1. 73m2 LAB CHEMISTRY METHOD 07/10/2025 4:12 PM [facility] LAB Comment:Calculation based on the Chronic Kidney Disease Epidemiology Collaboration (CKD-EPI) equation refit without adjustment for race. BUN/Creatinine Ratio 29.0 LAB CHEMISTRY METHOD 07/10/2025 4:12 PM EDT [facility] LAB Calcium 9.7 8.5 - 10.5 mg/dL LAB CHEMISTRY METHOD 07/10/2025 4:12 PM EDT [facility] LAB Blood Venous blood specimen / Unknown Venipuncture / Unknown 07/10/2025 9:59 AM EDT 07/10/2025 10:51 AM EDT us Bruce Welch MD LAB BLOOD ORDERABLES Final Resul t Performing Organization Address [facility] de Phone Number [facility] LAB [address] [place] [address], [place] [phone] * (ABNORMAL) Magnesium (07/05/2025 6:12 AM EDT) Only the most recent of2 resultswithin the time period is included. Magnesium 1.8(L) 1.9 - 2.6 mg/dL LAB CHEMISTRY METHOD 07/05/2025 11:16 AM EDT [facility] LAB Blood Venous blood specimen / Unknown Venipuncture / Unknown 07/05/2025 6:12 AM EDT 07/05/2025 9:34 AM EDT us Bruce Welch MD LAB BLOOD ORDERABLES Final Resul t Performing Organization Address [facility]/ZIP Co de Phone Number [facility] LAB [address] [place] [address], [place] [phone] * (ABNORMAL) Thyroid stimulating hormone with reflex to free t4 and free t3 (06/19/2025 5:26 AM EDT) TSH 0.05(L) 0.40 - 4.00 mcIU/mL LAB CHEMISTRY METHOD 06/19/2025 5:27 PM EDT [facility] LAB Blood Venous blood specimen / Unknown Venipuncture / Unknown 06/19/2025 5:26 AM EDT 06/19/2025 10:47 AM EDT us Bruce Welch MD LAB BLOOD ORDERABLES Final Resul t Performing Organization Address [facility]/ZIP Co de Phone Number [facility] LAB [address] [place] [address], [place] [phone] * Free thyroxine with reflex to free triiodothyronine (06/19/2025 5:26 AM EDT) Free T4 1.40 0.70 - 1.80 ng/dL LAB CHEMISTRY METHOD 06/19/2025 6:04 PM EDT [facility] LAB Blood Venous blood specimen / Unknown Venipuncture / Unknown 06/19/2025 5:26 AM EDT 06/19/2025 10:47 AM EDT us Bruce Welch MD LAB BLOOD ORDERABLES Final Resul t Performing Organization Address [facility] de Phone Number [facility] LAB [address] [place] [address], [place] [phone] * Vitamin B12 and folate (06/19/2025 5:26 AM EDT) Vitamin B-12 774 250 - 900 pcg/mL LAB CHEMISTRY METHOD 06/19/2025 11:51 AM EDT [facility] LAB Folate 6.4 2.8 - 17.0 ng/ml LAB CHEMISTRY METHOD 06/19/2025 11:51 AM EDT [facility] LAB Blood Venous blood specimen / Unknown Venipuncture / Unknown 06/19/2025 5:26 AM EDT 06/19/2025 10:47 AM EDT us Bruce Welch MD LAB BLOOD ORDERABLES Final Resul t Performing Organization Address City/[facility]/ZIP Co de Phone Number [facility] [address] [place] [address], * Lipid panel with reflex to direct LDL (06/19/2025 5:26 AM EDT) Cholesterol 116 0 - 200 mg/dL LAB CHEMISTRY METHOD 06/19/2025 11:51 AM EDT [facility] LAB Triglycerides 72 0 - 150 mg/dL LAB CHEMISTRY METHOD 06/19/2025 11:51 AM EDT [facility] LAB HDL 58 >=40 mg/dL LAB CHEMISTRY METHOD 06/19/2025 11:51 AM EDT [facility] LDL Calculated 44 0 - 100 mg/dL LAB CHEMISTRY METHOD 06/19/2025 11:51 AM EDT [facility] LAB VLDL Cholesterol Apolinar 14.4 mg/dL LAB CHEMISTRY METHOD 06/19/2025 11:51 AM EDT [facility] LAB Non HDL Chol. (LDL+VLDL) 58 <145 mg/dL LAB CHEMISTRY METHOD 06/19/2025 11:51 AM EDT [facility] LAB Chol/HDL Ratio 2.0 0.0 - 4.4 LAB CHEMISTRY METHOD 06/19/2025 11:51 AM EDT [facility] LAB Blood Venous blood specimen / Unknown Venipuncture / Unknown 06/19/2025 5:26 AM EDT 06/19/2025 10:47 AM EDT Bruce Welch MD LAB BLOOD ORDERABLES Final Resul t [facility] [address] [place] [address], [place] [phone] * Vitamin D 25 hydroxy (06/19/2025 5:26 AM EDT) Vit D, 25-Hydroxy 72.3 30.0 - 80.0 ng/mL LAB CHEMISTRY METHOD 06/19/2025 1:24 PM EDT [facility] LAB Blood Venous blood specimen / Unknown Venipuncture / Unknown 06/19/2025 5:26 AM EDT 06/19/2025 10:47 AM EDT us Bruce Welch MD LAB BLOOD ORDERABLES Final Resul t Performing Organization Address [facility]/ZIP Co de Phone Number [facility] [address] [place] [address], [place] [phone] * (ABNORMAL) Triiodothyronine free (06/19/2025 5:26 AM EDT) T3, Free 193(L) 230 - 420 pcg/dL LAB CHEMISTRY METHOD 06/19/2025 7:36 PM EDT [facility] Blood Venous blood specimen / Unknown Venipuncture / Unknown 06/19/2025 5:26 AM EDT 06/19/2025 10:47 AM EDT us Bruce Welch MD LAB BLOOD ORDERABLES Final Resul t Performing Organization Address [facility] de Phone Number [facility] [address] [place] [address], [place] [phone] * (ABNORMAL) Comprehensive metabolic panel (06/19/2025 5:26 AM EDT) Sodium 139 133 - 145 mmol/L LAB CHEMISTRY METHOD 06/19/2025 11:51 AM EDT [facility] LAB Potassium 3.9 3.5 - 5.5 mmol/L LAB CHEMISTRY METHOD 06/19/2025 11:51 AM EDT [facility] LAB Chloride 104 96 - 110 mmol/L LAB CHEMISTRY METHOD 06/19/2025 11:51 AM EDT [facility] LAB CO2 27 21 - 32 mmol/L LAB CHEMISTRY METHOD 06/19/2025 11:51 AM [facility] LAB Anion Gap 8 3 - 11 LAB CHEMISTRY METHOD 06/19/2025 11:51 AM [facility] LAB Glucose 70 70 - 100 mg/dL LAB CHEMISTRY METHOD 06/19/2025 11:51 AM [facility] LAB BUN 27(H) 5 - 25 mg/dL LAB CHEMISTRY METHOD 06/19/2025 11:51 AM [facility] LAB Creatinine 0.91 0.50 - 1.10 mg/dL LAB CHEMISTRY METHOD 06/19/2025 11:51 AM [facility] LAB eGFR 64 >=60 mL/min/1. 73m2 LAB CHEMISTRY METHOD 06/19/2025 11:51 AM [facility] LAB Comment:Calculation based on the Chronic Kidney Disease Epidemiology Collaboration (CKD-EPI) equation refit without adjustment for race. BUN/Creatinine Ratio 29.7 LAB CHEMISTRY METHOD 06/19/2025 11:51 AM [facility] LAB Calcium 9.3 8.5 - 10.5 mg/dL LAB CHEMISTRY METHOD 06/19/2025 11:51 AM [facility] LAB AST (SGOT) 22 10 - 42 unit/L LAB CHEMISTRY METHOD 06/19/2025 11:51 AM [facility] ALT (SGPT) 26 10 - 60 unit/L LAB CHEMISTRY METHOD 06/19/2025 11:51 AM [facility] LAB Alkaline Phosphatase 158(H) 42 - 121 unit/L LAB CHEMISTRY METHOD 06/19/2025 11:51 AM [facility] Total Protein 5.8(L) 6.0 - 8.0 g/dL LAB CHEMISTRY METHOD 06/19/2025 11:51 AM [facility] LAB Albumin 2.8(L) 3.2 - 5.0 g/dL LAB CHEMISTRY METHOD 06/19/2025 11:51 AM [facility] Total Bilirubin 0.5 0.0 - 1.4 mg/dL LAB CHEMISTRY METHOD 06/19/2025 11:51 AM EDT [facility] Blood Venous blood specimen / Unknown Venipuncture / Unknown 06/19/2025 5:26 AM EDT 06/19/2025 10:47 AM EDT Bruce Welch MD LAB BLOOD ORDERABLES Final Resul t Performing Organization Address City/[facility]/ZIP Co de Phone Number [facility] [address] [place] [address], [place] [phone] * Hemoglobin A1c (04/10/2025 7:55 AM EDT) [facility] Hemoglobin A1C 6.3 <6.5 % LAB CHEMISTRY METHOD 04/10/2025 9:54 PM EDT [facility] Mean Bld Glu Estim. 134 mg/dL LAB CHEMISTRY METHOD 04/10/2025 9:54 PM EDT [facility] LAB Blood Venous blood specimen / Unknown Venipuncture / Unknown 04/10/2025 7:55 AM EDT 04/10/2025 10:43 AM EDT Bruce Welch MD LAB BLOOD ORDERABLES Final Resul t Performing Organization Address [facility] Co de Phone Number [facility] [address] [place] [address], [place] [phone] from Last 3 Months or Most Recently Relevant to Health Maintenance Insurance [employer] MEDIC[employer]VANTAGE Care Teams Blueprint Cutter Relationship Specialty Start Date End Date Bruce Welch MD [address] [facility] [address] [place] [address] PCP - General Geriatric Medicine 06/19/25
--- OUTSIDE RECORDS SUMMARY | 2025-09-06 18:16 | XMS_ITS | Clinical Summary ---
Author Organization [facility] Address [address] [place] [address] Care Team Providers Care Door Fitter Name Role Phone Allen Cortés MD Primary Care Provider [phone] Allergies No known active allergies Medications ezetimibe [...] Used Date Smoking Tobacco: Never Assessed [facility] Utilities Answer Date Recorded In the [...] place to sleep or slept in a skilled nursing (including now)? No 06/27/2024 Comments Unknown Sex [...] es 65 and older) 2010 RSV Vaccine 50 years and old er and Patients (1 [...] A1C 7.0(H) <5.7 % 06/27/2024 9:07 AM [facility] Comment: A1c% Interpretation 5.7 - 6.0 Increase risk of diabetes 6.1 - 6.4 Higher risk of diabetes > or = 6.5 Consistent with diabetes Diabetes Care, 33(Supp 1):S1-S61, 2010 Estimated Average Glucose 154 mg/dL 06/27/2024 9:07 AM [facility] Blood Blood specimen / Unknown 06/27/2024 8:21 AM EDT 06/27/2024 8:32 AM EDT Paul Ospina MD LAB BLOOD [place]AB[place] [address], [place] [address] * (ABNORMAL) Lipid Panel (06/27/2024 8:21 AM EDT) Cholesterol, Total 141 <200 mg/dL 2023 9:18 AM [facility] Triglycerides 169(H) <150 mg/dL 06/27/2024 9:18 AM [facility] Cholesterol, HDL 58 >39 mg/dL 06/27/20 9:18 AM [facility] Estimated LDL 49 <130 mg/dL 06/27/2024 9:18 AM [facility] Comment: NCEP Guidelines: < 100 mg/dL Optimal 100 - 129 mg/dL Near Optimal/Above Optimal 130 - 159 mg/dL Borderline High 160 - 189 mg/dL High >/= 190 mg/dL Very High Cholesterol/HDL Ratio 2.4 0.0 - 5.0 Ratio 06/27/2024 9:18 AM [facility] Comment: Relative Risk Ratio - Male Ratio - Female 0.5 3.4 3.3 1.0 5.0 4.4 2.0 9.6 7.1 3.0 23.4 11.0 Blood (Plasma/Serum) 06/27/2024 8:21 AM EDT 06/27/2024 8:32 AM EDT Paul Ospina MD LAB BLOOD ORDERABLES Final Result [address] [address], [address] [address] from Last 3 Months or Most Recently Relevant to Health Maintenance Insurance MEDICARE PART A & B [facility] MEDICARE Advance Directives * DNR (Latest Code Status on File) Date Activated Date Inactivated Comments 06/27/2024 4:12 PM Question Answer Comments Decision thoroughly discussed with: Gail ent arrived with valid State [place] DNR Transfer form * Full Code Date Activated Date Inactivated Comments 06/26/2024 8:41 PM 06/27/2024 4:12 PM Care Teams Door Fitter Relationship Specialty Start Date End Date Allen Cortés MD [address] [place] [id number] PCP - General 06/26/24
== END 2025-09-06 15:27 | disposition home or self-care (01) ==
LOC: HO.HOS 14:34
PROVIDERS: PCP Internal Medicine; Visit Provider Orthopaedic Surgery
DX: G56.03 Carpal tunnel syndrome, bilateral upper limbs (principal); E11.65 Type 2 diabetes mellitus with hyperglycemia; Z79.4 Long term (current) use of insulin; I63.9 Cerebral infarction, unspecified; R29.6 Repeated falls; I48.0 Paroxysmal atrial fibrillation; G56.22 Lesion of ulnar nerve, left upper limb
CPT/HCPCS: 99204

== ENCOUNTER → 2025-09-06 14:33 | Outpatient (BNVA) | payer MEDICARE, SELFPAY | PROVIDERS: PCP Internal Medicine; Visit Provider Orthopaedic Surgery | DX: G56.03 Carpal tunnel syndrome, bilateral upper limbs (principal); G56.22 Lesion of ulnar nerve, left upper limb; E11.65 Type 2 diabetes mellitus with hyperglycemia; R29.6 Repeated falls; I48.0 Paroxysmal atrial fibrillation; Z79.01 Long term (current) use of anticoagulants; Z86.73 Personal history of transient ischemic attack (TIA), and cerebral infarction without residual deficits; Z79.4 Long term (current) use of insulin | CPT/HCPCS: 99202 ==

== ENCOUNTER 2025-09-13 10:50 | Outpatient (AMB) | payer MEDICARE, SELFPAY ==
--- OUTSIDE RECORDS SUMMARY | 2024-07-13 10:30 | XMS_ITS ---
Author Organization [facility] Address [address] [place] [address] Care Team Providers Care Block Breaker Operator Name Role Phone Milana NATARAJAN, Allen Primary Care Provider Desire Arias [phone] Encounters Encounter Location Date Provider Diagnosis [address] [address] 07/13/2024 Desire Ashford Plan Of Treatment No Information Progress Notes * Naty CERVANTES LDOB: [birth year] (79 yo F)Acc No.[id number]:07/13/2024 Progress Note Patient: Naty WOLF Provider: Caitlin Ashford DPM :1945 A ge:78 Y S ex:Female Date:07/13/2024 Address:[address] [place], [place] [id number] Pcp:Allen Cortés MD Subjective: * Chief Complaints: [...] Ashford DPM Date: 0 07/13/2024 Generated for Ebonyi dain/Falesterg/eTransmitting on: 02:04 PM EDT
--- NOTE | 2025-09-13 11:16 | A.OFFVIS_ITS ---
Intake Visit Reasons: follow up Allergies amoxicillin (Augmentin) Allergy (Unknown, Verified 09/06/25 14:47) hives clavulanic acid (Augmentin) Allergy (Unknown, Verified 09/06/25 14:47) hives furosemide Allergy (Unknown, Verified 09/06/25 14:47) unknown latex (LATEX) Allergy (Unknown, Verified 09/06/25 14:47) UNKNOWN lisinopril Allergy (Unknown, Verified 09/06/25 14:47) Unknown oxycodone (Percocet) Allergy (Unknown, Verified 09/06/25 14:47) Stomach upset tramadol Allergy (Unknown, Verified 09/06/25 14:47) Stomach uspet Medication List - Last Reconciled 09/13/25 by Zaheer Jimenez MD apixaban (Eliquis) 5 mg PO BID atorvastatin 80 mg PO BEDTIME blood sugar diagnostic FREESTYLE LITE TEST STRIPS TO CHECK THREE TIMES A DAY blood-glucose meter (FreeStyle Lite Meter kit) As directed cyanocobalamin (vitamin B-12) 500 mcg PO DAILY ezetimibe 10 mg PO BEDTIME gabapentin 300 mg PO BEDTIME levothyroxine 112 mcg PO DAILY@0600 liraglutide 1.2 mg (0.2 mL) subcut DAILY 90 days lorazepam 0.5 mg PO BEDTIME PRN losartan 25 mg PO DAILY magnesium oxide 800 mg (2 x 400 mg (241.3 mg magnesium)) PO BID 90 days metformin 1,000 mg PO BIDWM omeprazole 20 mg PO DAILY [Oxygen mask As directed] pen needle, diabetic (Novofine 32) As directed up to three times per day sertraline 50 mg PO BEDTIME 90 days [Stair lift As directed] zinc gluconate 50 mg PO DAILY HPI Comments Details: She is doing better with less irritability and less depressed and not crying as much and in better spirits. Gets frustrated easily. Has never had any patience. ?Lives with her son for 3 days a week then in her house so her daughters stay with her. In November 2023, she had a sudden onset of left hand numbness. Symptoms were minor. 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 CTA was negative. She was discharged. She had a second episode which was more significant in June 2024, and she had a repeat CTA which showed occlusion of the proximal inferior division of the right M2 and she was found to have paroxysmal atrial fibrillation while she was admitted at [facility]. Since then her memory has not been great. CAT scan at [facility] showed a small right hemispheric infarct. She has made good recovery except that her memory is not as sharp and she still has some numbness on the left. There is increasing short term memory problems and some irritation. [facility] Medical History (Updated 09/13/25 @ 11:24 by Zaheer Jimenez MD) Carpal tunnel syndrome Frequent falls Paroxysmal atrial fibrillation Orthostatic hypotension Anemia Buttock wound Obesity (BMI 30-39.9) Neuropathy Acquired hypothyroidism Mixed hyperlipidemia Essential hypertension Atrial fibrillation Hypothyroidism Obesity Type 2 diabetes mellitus with morbid obesity Annual physical exam Vitamin D deficiency HLD (hyperlipidemia) T2DM (type 2 diabetes mellitus) Diabetes mellitus Hypertension Surgical History H/O hysterectomy for benign disease History of vitrectomy History of surgery History of colonoscopy (~01/28/19) History of appendectomy History of cholecystectomy S/P JOSIE (total abdominal hysterectomy) Family History Father Diabetes Mother CHF (congestive heart failure) CVD (cardiovascular disease) Brother HIV (human immunodeficiency virus infection) Social History Household Members: Children Household Members Other:: alternating among 2 daughters and 1 son Housing: House Do you presently have visiting nurse or other home services: No Unable to assess alcohol history related to: Unknown Alcohol intake: current Patient Tobacco Use Status: Former Tobacco user Tobacco use type: Cigarette Years Smoked: 30, started at 10, about 15 cig a day, e-Cigarette/Vaping Use: Former Use Second Hand Smoke Exposure: Yes Advance Directives Date on File: 12/15/23 service: No Current occupational status: retired Current occupational exposures/hazards: No Cognitive needs: No Hearing needs: No Vision needs: No Physical Exam Neuro Other: Neurological: Abnormal neurological findings:??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 Atrophy of APB R>L.?Mental Status:??alert and oriented X 3,?Normal attention, orientation, memory and affect.?Cranial Nerves:??Pupils are equal, round and reactive to light. Fundoscopy shows normal disc bilaterally. External occular muscles are intact. Visual mcqueen are full, no ptosis. Face is symmetrical, no facial weakness or droop. Facial sensations are normal. Tongue protrudes in midline. Palate elevates symmetrically. Shoulder shrugging is normal..?Motor Examination:??Atrophied APB. Normal muscle tone, bulk and strength,?No atrophy or fasciculations,?No drift of the extended upper extremities,?Deep tendon reflexes are 2+?,?Plantars are flexor?.?Straight Leg Raising:??90 degrees.?Sensory Exam:??Normal light touch, temperature, pinprick, vibration and joint-position sensations?,?Rhomberg sign is absent.?Coordination:??no ataxia,?no titubation,?flezsy-xu-ybsd, wvgn-oeda-lsix test and rapid alternating movements were normal.?Gait Exam:??Within normal limits.?Cerebellar Signs:??Kjamiq-gk-ouxe and szok-jj-vcmm is normal,?no dysdiadochokinesia?.?Extrapyramidal System:??No tremor, rigidity with normal facial expressions,?No bradykinesia, no bradyphrenia. Normal arm swing and posture. No propulsion or retropulsion.?Speech:??Normal,?no dysphasia or dysarthria..? Mini Mental Status Exam: Level of Consciousness:??Alert.?Orientation:??Knows correct year, month, date, day and season,?Knows correct city, county and state. Knows correct location and floor.?Registration:??Able to register 3 objects.?Attention:??Serial 7's performed accurately.?Recall:??Able to recall 3 out of 3 objects.?Language:??Normal spontaneous speech, fluency, repetition,naming, comprehension, reading and writing.?Total Score:??30/30.? General Examination: GENERAL APPEARANCE:??normal,?in no acute distress.?HEAD:??normocephalic,?atraumatic.?EYES:??sclera non- icteric,?conjunctiva clear.?EARS:??auditory canal clear,?tympanic membrane intact, clear.?NOSE:??no lesions.?ORAL CAVITY:??gums normal,?mucosa moist,?no lesions.?THROAT:??clear.?NECK/THYROID:??no cervical lymphadenopathy,?thyroid no rmal,?neck supple, full range of motion,?no carotid bruit.?SKIN:??no rashes,?no significant birthmarks.?HEART:??S1, S2 normal,?no murmurs.?LUNGS:??clear anteriorly and posteriorly.?CHEST:??no gross rib deformity,?clear to auscultation.?BACK:??normal exam of spine.?EXTREMITIES:??no edema.?PERIPHERAL PULSES:??normal.?PSYCH:??alert, oriented,?cognitive function intact,?cooperative with exam.? Results Reviewed Results Reviewed: 04/16/25 EEG normal. Assessment & Plan Assessment & Plan (1) Carpal tunnel syndrome: Comment: end stage CTS Code(s): G56.00 - Carpal tunnel syndrome, unspecified upper limb Category: Medical (2) CVA (cerebral vascular accident): Code(s): I63.9 - Cerebral infarction, unspecified Category: Medical Qualifiers: CVA mechanism: unspecified Qualified Code(s): I63.9 - Cerebral infarction, unspecified (3) MCI (mild cognitive impairment): Code(s): G31.84 - Mild cognitive impairment of uncertain or unknown etiology Category: Medical Plan Scheduled for left CTS release for advanced CTS. Know sthat there may not be an improvement. Schedule for MMSE and MOCA Medications: Refilled sertraline 50 mg PO BEDTIME 90 tabs 3RF 90 days Coding Level of Care Code Est Pt Level 4 (34317) Diagnoses Carpal tunnel syndrome G56.00 Cerebrovascular accident (CVA), unspecified mechanism I63.9 CVA mechanism: unspecified MCI (mild cognitive impairment) G31.84
--- OUTSIDE RECORDS SUMMARY | 2025-09-13 14:04 | XMS_ITS | Clinical Summary ---
Author Organization [facility] Address [address] [place] [address] Care Team Providers Care Supervisor Smoke Control Name Role Phone Allen Cortés MD Primary Care Provider [phone] Allergies No known active allergies Medications ezetimibe [...] Years Used Date Smoking Tobacco: Never Assessed [facility] Utilities Answer Date Recorded In [...] place to sleep or slept in a fdc (including now)? No 06/27/2024 Comments Unknown Sex [...] A1C 7.0(H) <5.7 % 06/27/2024 9:07 AM [facility] Comment: A1c% Interpretation 5.7 - 6.0 Increase risk of diabetes 6.1 - 6.4 Higher risk of diabetes > or = 6.5 Consistent with diabetes Diabetes Care, 33(Supp 1):S1-S61, 2010 Estimated Average Glucose 154 mg/dL 06/27/2024 9:07 AM [facility] Blood Blood specimen / Unknown 06/27/2024 8:21 AM EDT 06/27/2024 8:32 AM EDT Paul Ospina MD LAB BLOOD [place] [address], [place] [address] * (ABNORMAL) Lipid Panel (06/27/2024 8:21 AM EDT) Cholesterol, Total 141 <200 mg/dL 2023 9:18 AM [facility] Triglycerides 169(H) <150 mg/dL 06/27/2024 9:18 AM [facility] Cholesterol, HDL 58 >39 mg/dL 06/27/20 9:18 AM [facility] Estimated LDL 49 <130 mg/dL 06/27/2024 9:18 AM [facility] Comment: NCEP Guidelines: < 100 mg/dL Optimal 100 - 129 mg/dL Near Optimal/Above Optimal 130 - 159 mg/dL Borderline High 160 - 189 mg/dL High >/= 190 mg/dL Very High Cholesterol/HDL Ratio 2.4 0.0 - 5.0 Ratio 06/27/2024 9:18 AM [facility] Comment: Relative Risk Ratio - Male Ratio - Female 0.5 3.4 3.3 1.0 5.0 4.4 2.0 9.6 7.1 3.0 23.4 11.0 Blood (Plasma/Serum) 06/27/2024 8:21 AM EDT 06/27/2024 8:32 AM EDT Paul Ospina MD LAB BLOOD ORDERABLES Final Result [address] [address], [address] [address] from Last 3 Months or Most Recently Relevant to Health Maintenance Insurance MEDICARE PART A & B [facility] MEDICARE Advance Directives * DNR (Latest Code Status on File) Date Activated Date Inactivated Comments 06/27/2024 4:12 PM Question Answer Comments Decision thoroughly discussed with: Gail ent arrived with valid State [place] DNR Transfer form * Full Code Date Activated Date Inactivated Comments 06/26/2024 8:41 PM 06/27/2024 4:12 PM Care Teams Supervisor Smoke Control Relationship Specialty Start Date End Date Allen Cortés MD [address] [place] [address] PCP - General 06/26/24
--- OUTSIDE RECORDS SUMMARY | 2025-09-13 14:04 | XMS_ITS | Encounter Summary ---
Author Organization [facility] Address [address] [place] [address] Care Team Providers Care Magazine Hand Name Role Phone Bruce Welch MD Primary Care Provider [phone] Encounter Details Date Type Department Care Team (Late st Contact Info) Description 04/10/2025 Lab Requisition [facility] - Main Lab [address] [place] [address] Bruce Welch MD [address] [place], [place] [id number] Vitamin D deficiency, unspecified; Essential (primary) hypertension; [...] (ABNORMAL) Vitamin B12 (04/10/2025 7:55 AM EDT) [facility] Vitamin B-12 1,228(H) 250 - 900 pcg/mL LAB CHEMISTRY METHOD 04/10/2025 12:37 PM EDT [facility] Blood Venous blood specimen / Unknown Venipuncture / Unknown 04/10/2025 7:55 AM EDT 04/10/2025 10:43 AM EDT us Bruce Welch MD LAB BLOOD ORDERABLES Final Resul t Performing Organization Address City/[facility]/ZIP Co de Phone Number [facility] [address] [place] [address], [place] [phone] * Folate (04/10/2025 7:55 AM EDT) [facility] Folate 7.2 2.8 - 17.0 ng/ml LAB CHEMISTRY METHOD 04/10/2025 12:37 PM EDT [facility] Blood Venous blood specimen / Unknown Venipuncture / Unknown 04/10/2025 7:55 AM EDT 04/10/2025 10:43 AM EDT us Bruce Welch MD LAB BLOOD ORDERABLES Final Resul t Performing Organization Address [facility] Co de Phone Number [facility] [address] [place] [address], [place] [phone] * Vitamin D 25 hydroxy (04/10/2025 7:55 AM EDT) [facility] Vit D, 25-Hydroxy 71.3 30.0 - 80.0 ng/mL LAB CHEMISTRY METHOD 04/10/2025 2:06 PM EDT [facility] Blood Venous blood specimen / Unknown Venipuncture / Unknown 04/10/2025 7:55 AM EDT 04/10/2025 10:43 AM EDT us Bruce Welch MD LAB BLOOD ORDERABLES Final Resul t Performing Organization Address City/[facility]/ZIP Co de Phone Number [facility] [address] [place] [address], [place] [phone] * Hemoglobin A1c (04/10/2025 7:55 AM EDT) [facility] Hemoglobin A1C 6.3 <6.5 % LAB CHEMISTRY METHOD 04/10/2025 9:54 PM EDT [facility] Mean Bld Glu Estim. 134 mg/dL LAB CHEMISTRY METHOD 04/10/2025 9:54 PM EDT [facility] Blood Venous blood specimen / Unknown Venipuncture / Unknown 04/10/2025 7:55 AM EDT 04/10/2025 10:43 AM EDT us Bruce Welch MD LAB BLOOD ORDERABLES Final Resul t [facility] [address] [place] [address], [place] [phone] * (ABNORMAL) Lipid panel with reflex to direct LDL (04/10/2025 7:55 AM EDT) [facility] Cholesterol 94 0 - 200 mg/dL LAB CHEMISTRY METHOD 04/10/2025 12:[address] [facility] Triglycerides 84 0 - 150 mg/dL LAB CHEMISTRY METHOD 04/10/2025 12:[address] [facility] HDL 39(L) >=40 mg/dL LAB CHEMISTRY METHOD 04/10/2025 12:[address] [facility] LDL Calculated 38 0 - 100 mg/dL LAB CHEMISTRY METHOD 04/10/2025 12:[address] [facility] VLDL Cholesterol Apolinar 16.8 mg/dL LAB CHEMISTRY METHOD 04/10/2025 12:37 PM EDT [facility] Non HDL Chol. (LDL+VLDL) 55 <145 mg/dL LAB CHEMISTRY METHOD 04/10/2025 12:[address] [facility] Chol/HDL Ratio 2.4 0.0 - 4.4 LAB CHEMISTRY METHOD 04/10/2025 12:[address] [facility] Blood Venous blood specimen / Unknown Venipuncture / Unknown 04/10/2025 7:55 AM EDT 04/10/2025 10:43 AM EDT Bruce Welch MD LAB BLOOD ORDERABLES Final Resul t [facility] [address] [place] [address], [place] [phone] * (ABNORMAL) Comprehensive metabolic panel (04/10/2025 7:55 AM EDT) Sodium 142 133 - 145 mmol/L LAB CHEMISTRY METHOD 04/10/2025 12:[address] [facility] Potassium 4.1 3.5 - 5.5 mmol/L LAB CHEMISTRY METHOD 04/10/2025 12:[address] [facility] Chloride 107 96 - 110 mmol/L LAB CHEMISTRY METHOD 04/10/2025 12:[address] [facility] CO2 27 21 - 32 mmol/L LAB CHEMISTRY METHOD 04/10/2025 12:[address] [facility] Anion Gap 8 3 - 11 LAB CHEMISTRY METHOD 04/10/2025 12:[address] [facility] Glucose 87 70 - 100 mg/dL LAB CHEMISTRY METHOD 04/10/2025 12:[address] [facility] BUN 15 5 - 25 mg/dL LAB CHEMISTRY METHOD 04/10/2025 12:[address] [facility] Creatinine 0.73 0.50 - 1.10 mg/dL LAB CHEMISTRY METHOD 04/10/2025 12:[address] [facility] eGFR 84 >=60 mL/min/1. 73m2 LAB CHEMISTRY METHOD 04/10/2025 12:[address] [facility] Comment:Calculation based on the Chronic Kidney Disease Epidemiology Collaboration (CKD-EPI) equation refit without adjustment for race. BUN/Creatinine Ratio 20.5 LAB CHEMISTRY METHOD 04/10/2025 12:37 PM T [facility] Calcium 8.4(L) 8.5 - 10.5 mg/dL LAB CHEMISTRY METHOD 04/10/2025 12:[address] [facility] AST (SGOT) 35 10 - 42 unit/L LAB CHEMISTRY METHOD 04/10/2025 12:[address] [facility] ALT (SGPT) 34 10 - 60 unit/L LAB CHEMISTRY METHOD 04/10/2025 12:[address] [facility] Alkaline Phosphatase 225(H) 42 - 121 unit/L LAB CHEMISTRY METHOD 04/10/2025 12:[address] [facility] Total Protein 5.4(L) 6.0 - 8.0 g/dL LAB CHEMISTRY METHOD 04/10/2025 12:[address] [facility] Albumin 2.4(L) 3.2 - 5.0 g/dL LAB CHEMISTRY METHOD 04/10/2025 12:[address] [facility] Total Bilirubin 0.4 0.0 - 1.4 mg/dL LAB CHEMISTRY METHOD 04/10/2025 12:[address] [facility] Blood Venous blood specimen / Unknown Venipuncture / Unknown 04/10/2025 7:55 AM EDT 04/10/2025 10:43 AM EDT us Bruce Welch MD LAB BLOOD ORDERABLES Final Resul t [facility] [address] [place] [address], * (ABNORMAL) Complete blood count (04/10/2025 7:55 AM EDT) WBC 7.3 4.8 - 10.8 K/mcL LAB HEMETOLOGY METHOD 04/10/2025 12:23 PM EDT [facility] RBC 3.30(L) 3.80 - 4.80 M/mcL LAB HEMETOLOGY METHOD 04/10/2025 12:[address] [facility] Hemoglobin 8.4(L) 11.5 - 16.0 g/dL LAB HEMETOLOGY METHOD 04/10/2025 12:[address] [facility] Hematocrit 27.9(L) 35.0 - 47.0 % LAB HEMETOLOGY METHOD 04/10/2025 12:[address] [facility] MCV 83.8 79.0 - 98.0 FL LAB HEMETOLOGY METHOD 04/10/2025 12:[address] [facility] MCH 25.2(L) 27.0 - 32.0 pcg LAB HEMETOLOGY METHOD 04/10/2025 12:[address] [facility] MCHC 30.1(L) 32.0 - 37.0 g/dL LAB HEMETOLOGY METHOD 04/10/2025 12:[address] [facility] RDW 15.7(H) 11.0 - 15.0 % LAB HEMETOLOGY METHOD 04/10/2025 12:[address] [facility] Platelets 279 130 - 400 K/mcL LAB HEMETOLOGY METHOD 04/10/2025 12:[address] [facility] MPV 11.8(H) 7.0 - 11.0 FL LAB HEMETOLOGY METHOD 04/10/2025 12:[address] [facility] NRBC 0.0 <1.0 % LAB HEMETOLOGY METHOD 04/10/2025 12:[address] [facility] NRBC Absolute 0.00 <0.10 K/mcL LAB HEMETOLOGY METHOD 04/10/2025 12:[address] [facility] Blood Venous blood specimen / Unknown Venipuncture / Unknown 04/10/2025 7:55 AM EDT 04/10/2025 10:43 AM EDT Bruce Welch MD LAB BLOOD ORDERABLES Final Resul t [facility] ([facility]) [facility] [address] [place] [address], [place] [phone] documented in this encounter Visit Diagnoses Diagnosis Vitamin D deficiency, unspecified Essential (primary) hypertension Unspecified essential hypertension Unspecified atrial fibrillation (CMS/[facility] V24, CMS/[facility] V28) Type 2 diabetes mellitus without complications (CMS/[facility] V24, CMS/[facility] V28) documented in this encounter Care Teams Magazine Hand Relationship Specialty Start Date End Date Bruce Welch MD [address] [place] [address] [address] [place] [address] PCP - General Geriatric Medicine 06/19/25 documented as of this encounter
--- OUTSIDE RECORDS SUMMARY | 2025-09-13 14:04 | XMS_ITS | Encounter Summary ---
Author Organization [facility] Address [address] [place] [address] Care Team Providers Care Claims Account Manager Name Role Phone Bruce Welch MD Primary Care Provider [phone] Encounter Details Date Type Department Care Team (Late st Contact Info) Description 06/19/2025 Lab Requisition [facility] - Main Lab [address] [facility] [place] [address] Bruce Welch MD [address] [place], [place] [phone] Anemia, unspecified; Type 2 diabetes mellitus without [...] 2 diabetes mellitus without complications ([facility] V24, [facility] V28) Hyperlipidemia, unspecified Hypothyroidism, unspecified Magnesium deficiency Vitamin B12 deficiency anemia, unspecified Vitamin D deficiency, unspecified LIPID PANEL WITH REFLEX TO DIRECT LDL Routine 06/19/2025 5:26 AM EDT Anemia, unspecified Type 2 diabetes mellitus without complications ([facility] V24, [facility] V28) Hyperlipidemia, unspecified Hypothyroidism, unspecified Magnesium deficiency Vitamin B12 deficiency anemia, unspecified Vitamin D deficiency, unspecified VITAMIN D 25 HYDROXY Routine 06/19/2025 5:26 AM EDT Anemia, unspecified Type 2 diabetes mellitus without complications ([facility] V24, [facility] V28) Hyperlipidemia, unspecified Hypothyroidism, unspecified Magnesium deficiency Vitamin B12 deficiency anemia, unspecified Vitamin D deficiency, unspecified COMPLETE BLOOD COUNT Routine 06/19/2025 5:26 AM EDT Anemia, unspecified Type 2 diabetes mellitus without complications ([facility] V24, [facility] V28) Hyperlipidemia, unspecified Hypothyroidism, unspecified Magnesium deficiency Vitamin B12 deficiency anemia, unspecified Vitamin D deficiency, unspecified TRIIODOTHYRONINE FREE Routine 06/19/2025 5:26 AM EDT Anemia, unspecified Type 2 diabetes mellitus without complications ([facility] V24, [facility] V28) Hyperlipidemia, unspecified Hypothyroidism, unspecified Magnesium deficiency Vitamin B12 deficiency anemia, unspecified Vitamin D deficiency, unspecified MAGNESIUM Routine 06/19/2025 5:26 AM EDT Anemia, unspecified Type 2 diabetes mellitus without complications ([facility] V24, [facility] V28) Hyperlipidemia, unspecified Hypothyroidism, unspecified Magnesium deficiency Vitamin B12 deficiency anemia, unspecified Vitamin D deficiency, unspecified COMPREHENSIVE METABOLIC PANEL Routine 06/19/2025 5:26 AM EDT Anemia, unspecified Type 2 diabetes mellitus without complications ([facility] V24, [facility] V28) Hyperlipidemia, unspecified Hypothyroidism, unspecified Magnesium deficiency [...] ORDERABLES Final Resul t Performing Organization Address City/[facility]/ZIP Co de Phone Number [facility] [address] [place] [address], [place] [phone] * Free thyroxine with reflex to free triiodothyronine (06/19/2025 5:26 AM EDT) Free T4 1.40 0.70 - 1.80 ng/dL LAB CHEMISTRY METHOD 06/19/2025 6:04 PM EDT [facility] Blood Venous blood specimen / Unknown Venipuncture / Unknown 06/19/2025 5:26 AM EDT 06/19/2025 10:47 AM EDT us Bruce Welch MD LAB BLOOD ORDERABLES Final Resul t Performing Organization Address City/[facility]/ZIP Co de Phone Number [facility] [address] [place] [address], [place] [phone] * Vitamin D 25 hydroxy (06/19/2025 5:26 AM EDT) Vit D, 25-Hydroxy 72.3 30.0 - 80.0 ng/mL LAB CHEMISTRY METHOD 06/19/2025 1:24 PM EDT [facility] Blood Venous blood specimen / Unknown Venipuncture / Unknown 06/19/2025 5:26 AM EDT 06/19/2025 10:47 AM EDT us Bruce Welch MD LAB BLOOD ORDERABLES Final Resul t Performing Organization Address City/[facility] Co de Phone Number [facility] [address] [place] [address], [place] [phone] * Vitamin B12 and folate (06/19/2025 5:26 [...] ORDERABLES Final Resul t Performing Organization Address [facility]/ZIP Co de Phone Number [facility] [address] [place] [address], [place] [phone] * (ABNORMAL) Magnesium (06/19/2025 5:26 AM EDT) Magnesium 1.7(L) 1.9 - 2.6 mg/dL LAB CHEMISTRY METHOD 06/19/2025 11:29 AM EDT [facility] Blood Venous blood specimen / Unknown Venipuncture / Unknown 06/19/2025 5:26 AM EDT 06/19/2025 10:47 AM EDT us Bruce Welch MD LAB BLOOD ORDERABLES Final Resul t [facility] [address] [place] [address], [place] [phone] * (ABNORMAL) Thyroid stimulating hormone with reflex to free t4 and free t3 (06/19/2025 5:26 AM EDT) [facility] TSH 0.05(L) 0.40 - 4.00 mcIU/mL LAB CHEMISTRY METHOD 06/19/2025 5:27 PM EDT [facility] Blood Venous blood specimen / Unknown Venipuncture / Unknown 06/19/2025 5:26 AM EDT 06/19/2025 10:47 AM EDT us Bruce Welch MD LAB BLOOD ORDERABLES Final Resul t [facility] [address] [place] [address], [place] [phone] * Lipid panel with reflex to direct LDL (06/19/2025 5:26 AM EDT) [facility] Cholesterol 116 0 - 200 mg/dL LAB [...] t [facility] [address] [place] [address], * (ABNORMAL) Comprehensive metabolic panel (06/19/2025 5:26 [...] t [facility] [address] [place] [address], * (ABNORMAL) Complete blood count (06/19/2025 5:26 AM EDT) [facility] WBC 8.4 4.8 - 10.8 K/mcL LAB [...] [facility] LAB NRBC Absolute 0.00 <0.10 K/[facility] LAB HEMETOLOGY METHOD 06/19/2025 11:23 AM EDT [facility] Blood Venous blood specimen / Unknown Venipuncture / Unknown 06/19/2025 5:26 AM EDT 06/19/2025 10:47 AM EDT Bruce Welch MD LAB BLOOD ORDERABLES Final Resul t [facility] [address] [place] [address], documented in this encounter Visit Diagnoses Diagnosis Anemia, unspecified Type 2 diabetes mellitus without complications (CMS/HCC V24, CMS/HCC V28) Hyperlipidemia, unspecified Hypothyroidism, unspecified Magnesium deficiency Disorders of magnesium metabolism Vitamin B12 deficiency anemia, unspecified Vitamin D deficiency, unspecified documented in this encounter Care Teams Claims Account Manager Relationship Specialty Start Date End Date Bruce Welch MD [address] [place] [address] [address] [place] [address] PCP - General Geriatric Medicine 06/19/25 documented as of this encounter
--- OUTSIDE RECORDS SUMMARY | 2025-09-13 14:04 | XMS_ITS | Encounter Summary ---
Author Organization [facility] Address [address] [place] [address] Care Team Providers Care Hops Farmworker Name Role Phone Bruce Welch MD Primary Care Provider [phone] Encounter Details Date Type Department Care Team (Late st Contact Info) Description 04/21/2025 Lab Requisition [facility] - Main Lab [address] [facility] [place] [address] Bruce Welch MD [address] [place], [place] [phone] Vitamin D deficiency, unspecified; Essential (primary) hypertension; [...] V28) documented in this encounter Care Teams Hops Farmworker Relationship Specialty Start Date End Date Bruce Welch MD [address] [place], [place] [phone] PCP - General Geriatric Medicine 06/19/25 documented as of this encounter
--- OUTSIDE RECORDS SUMMARY | 2025-09-13 14:04 | XMS_ITS | Encounter Summary ---
Author Organization [facility] Address [address] [place] [address] Care Team Providers Care Analysis Specialist Name Role Phone Bruce Welch MD Primary Care Provider [phone] Encounter Details Date Type Department Care Team (Late st Contact Info) Description 06/24/2025 Lab Requisition [facility] - Main Lab [address] [facility] [place] [address] Bruce Welch MD [address] [place], [place] [id number] Type 2 diabetes mellitus without complications (CMS/HCC [...] mmol/L LAB CHEMISTRY METHOD 06/26/2025 1:23 PM [facility] Potassium 3.9 3.5 - 5.5 mmol/L LAB CHEMISTRY METHOD 06/26/2025 1:23 PM [facility] Chloride 103 96 - 110 mmol/L LAB CHEMISTRY METHOD 06/26/2025 1:23 PM [facility] CO2 27 21 - 32 mmol/L LAB CHEMISTRY METHOD 06/26/2025 1:23 PM [facility] Anion Gap 8 3 - 11 LAB CHEMISTRY METHOD 06/26/2025 1:23 PM [facility] Glucose 111(H) 70 - 100 mg/dL LAB CHEMISTRY METHOD 06/26/2025 1:23 PM [facility] BUN 21 5 - 25 mg/dL LAB CHEMISTRY METHOD 06/26/2025 1:23 PM [facility] Creatinine 0.69 0.50 - 1.10 mg/dL LAB CHEMISTRY METHOD 06/26/2025 1:23 PM [facility] eGFR 88 >=60 mL/min/1. 73m2 LAB CHEMISTRY METHOD 06/26/2025 1:23 PM [facility] Comment:Calculation based on the Chronic Kidney Disease Epidemiology Collaboration (CKD-EPI) equation refit without adjustment for race. BUN/Creatinine Ratio 30.4 LAB CHEMISTRY METHOD 06/26/2025 1:23 PM [facility] Calcium 8.6 8.5 - 10.5 mg/dL LAB CHEMISTRY METHOD 06/26/2025 1:23 PM [facility] Blood Venous blood specimen / Unknown Venipuncture / Unknown 06/26/2025 10:03 AM EDT 06/26/2025 11:19 AM EDT us Bruce Welch MD LAB BLOOD ORDERABLES Final Resul t [facility] [address] [place] [address], * (ABNORMAL) Complete blood count (06/26/2025 10:03 AM EDT) [facility] [place] WBC 9.4 4.8 - 10.8 K/mcL LAB HEMETOLOGY METHOD [facility]25 [facility] RBC 4.10 3.80 - 4.80 M/mcL LAB HEMETOLOGY METHOD 06/26/2025 12:[facility] Hemoglobin 10.2(L) 11.5 - 16.0 g/dL LAB HEMETOLOGY METHOD 06/26/2025 12:15 PM [facility] Hematocrit 33.2(L) 35.0 - 47.0 % LAB HEMETOLOGY METHOD 06/26/2025 12:15 PM [facility] MCV 81.4 79.0 - 98.0 FL LAB HEMETOLOGY METHOD 06/26/2025 12:15 PM [facility] MCH 25.0(L) 27.0 - 32.0 pcg LAB HEMETOLOGY METHOD 06/26/2025 12:15 PM [facility] MCHC 30.7(L) 32.0 - 37.0 g/dL LAB HEMETOLOGY METHOD 06/26/2025 12:15 PM [facility] RDW 15.9(H) 11.0 - 15.0 % LAB HEMETOLOGY METHOD 06/26/2025 12:15 PM [facility] Platelets 364 130 - 400 K/mcL LAB HEMETOLOGY METHOD 06/26/2025 12:15 PM [facility] MPV 10.5 7.0 - 11.0 FL LAB HEMETOLOGY METHOD 06/26/2025 12:15 PM [facility] NRBC 0.0 <1.0 % LAB HEMETOLOGY METHOD 06/26/2025 12:15 PM EDT [facility] NRBC Absolute 0.00 <0.10 K/mcL LAB HEMETOLOGY METHOD 06/26/2025 12:15 PM EDT [facility] Blood Venous blood specimen / Unknown Venipuncture / Unknown 06/26/2025 10:03 AM EDT 06/26/2025 11:19 AM EDT us Bruce Welch MD LAB BLOOD ORDERABLES Final Resul t [facility] [address] [place] [address], documented in this encounter Visit Diagnoses Diagnosis Type 2 diabetes mellitus without complications (CMS/HCC V24, CMS/HCC V28) Anemia, unspecified documented in this encounter Care Teams Analysis Specialist Relationship Specialty Start Date End Date Bruce Welch MD [address] [place] [address] [address] [place] [address] PCP - General Geriatric Medicine 06/19/25 documented as of this encounter
--- OUTSIDE RECORDS SUMMARY | 2025-09-13 14:04 | XMS_ITS | Encounter Summary ---
Author Organization [facility] Address [address] [place] [address] Care Team Providers Care Tractor Operator Helper Name Role Phone Bruce Welch MD Primary Care Provider [phone] Encounter Details Date Type Department Care Team (Late st Contact Info) Description 04/16/2025 Lab Requisition [facility] - Main Lab [address] [facility] [place] [address] Bruce Welch MD [address] [place], [place] [id number] Vitamin D deficiency, unspecified; Essential (primary) hypertension; [...] diabetes mellitus without complications (CMS/HCC V24, CMS/FORMER[facility] V28) documented in this encounter Results * Basic metabolic panel (04/18/2025 6:41 AM EDT) Sodium 138 133 - 145 mmol/L LAB CHEMISTRY METHOD 04/18/2025 12:48 PM [facility] Potassium 4.5 3.5 - 5.5 mmol/L LAB CHEMISTRY METHOD 04/18/2025 12:48 PM [facility] Chloride 102 96 - 110 mmol/L LAB CHEMISTRY METHOD 04/18/2025 12:48 PM [facility] CO2 26 21 - 32 mmol/L LAB CHEMISTRY METHOD 04/18/2025 12:48 PM [facility] Anion Gap 10 3 - 11 LAB CHEMISTRY METHOD 04/18/2025 12:48 PM [facility] Glucose 73 70 - 100 mg/dL LAB CHEMISTRY METHOD 04/18/2025 12:48 PM [facility] BUN 16 5 - 25 mg/dL LAB CHEMISTRY METHOD 04/18/2025 12:48 PM [facility] Creatinine 0.68 0.50 - 1.10 mg/dL LAB CHEMISTRY METHOD 04/18/2025 12:48 PM [facility] eGFR 89 >=60 mL/min/1. 73m2 LAB CHEMISTRY METHOD 04/18/2025 12:48 PM [facility] Comment:Calculation based on the Chronic Kidney Disease Epidemiology Collaboration (CKD-EPI) equation refit without adjustment for race. BUN/Creatinine Ratio 23.5 LAB CHEMISTRY METHOD 04/18/2025 12:48 PM [facility] Calcium 9.2 8.5 - 10.5 mg/dL LAB CHEMISTRY METHOD 04/18/2025 12:48 PM [facility] Blood Venous blood specimen / Unknown Venipuncture / Unknown 04/18/2025 6:41 AM EDT 04/18/2025 10:47 AM EDT us Bruce Welch MD LAB BLOOD ORDERABLES Final Resul t [facility] [address] [place] [address], [place] [phone] * (ABNORMAL) Complete blood count (04/18/2025 6:41 AM EDT) WBC 8.4 4.8 - 10.8 K/mcL LAB HEMETOLOGY METHOD 04/18/2025 12:24 PM EDT [facility] RBC 3.60(L) 3.80 - 4.80 M/mcL LAB HEMETOLOGY METHOD 04/18/2025 12:24 PM EDT [facility] Hemoglobin 8.7(L) 11.5 - 16.0 g/dL LAB HEMETOLOGY METHOD 04/18/2025 12:24 PM EDT [facility] Hematocrit 29.8(L) 35.0 - 47.0 % LAB HEMETOLOGY METHOD 04/18/2025 12:24 PM EDT [facility] MCV 83.7 79.0 - 98.0 FL LAB HEMETOLOGY METHOD 04/18/2025 12:24 PM EDT [facility] MCH 24.4(L) 27.0 - 32.0 pcg LAB HEMETOLOGY METHOD 04/18/2025 12:24 PM EDT [facility] MCHC 29.2(L) 32.0 - 37.0 g/dL LAB HEMETOLOGY METHOD 04/18/2025 12:24 PM EDT [facility] RDW 15.3(H) 11.0 - 15.0 % LAB HEMETOLOGY METHOD 04/18/2025 12:24 PM EDT [facility] Platelets 411(H) 130 - 400 K/mcL LAB HEMETOLOGY METHOD 04/18/2025 12:24 PM EDT [facility] MPV 11.1(H) 7.0 - 11.0 FL LAB HEMETOLOGY METHOD 04/18/2025 12:24 PM EDT [facility] NRBC 0.0 <1.0 % LAB HEMETOLOGY METHOD 04/18/2025 12:24 PM EDT [facility] NRBC Absolute 0.00 <0.10 K/mcL [facility] 04/18/2025 12:24 PM EDT [facility] Blood Venous blood specimen / Unknown Venipuncture / Unknown 04/18/2025 6:41 AM EDT 04/18/2025 10:47 AM EDT Bruce Welch MD LAB BLOOD ORDERABLES Final Resul t [facility] [address] [place] [address], documented in this encounter Visit Diagnoses Diagnosis Vitamin D deficiency, unspecified Essential (primary) hypertension Unspecified essential hypertension Unspecified atrial fibrillation (CMS/HCC V24, CMS/HCC V28) Type 2 diabetes mellitus without complications (CMS/HCC V24, CMS/HCC V28) documented in this encounter Care Teams Tractor Operator Helper Relationship Specialty Start Date End Date Bruce Welch MD [address] [place] [address] [address] [place] [address] PCP - General Geriatric Medicine 06/19/25 documented as of this encounter
--- OUTSIDE RECORDS SUMMARY | 2025-09-13 14:04 | XMS_ITS | Patient Health Record ---
Author Organization [facility] Address [address] [place] [address] Care Team Providers Care Supervisor Water [employer] Name Role Phone Milana NATARAJAN, Allen Primary Care Provider Desire Arias Unavailable [phone] Allergies No Known Allergies Reason For Referral [...] Problem Acquired hammer toe of right foot (5075111231245525 ) Other hammer toe(s) (acquired), right foot (M20.41) Active confirmed Problem Acquired hammer toe of left foot (3448001233681193 ) Other hammer toe(s) (acquired), left foot (M20.42) Active confirmed Problem Acquired hammer toe of left foot (5974976614748172 ) Hammer toe of left foot (M20.42) Active confirmed Problem Polyneuropathy due to type 2 diabetes mellitus (557146890) 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.42) Active confirmed Problem Localized, primary osteoarthritis of the ankle and/or foot (385320178) Osteoarthritis of left ankle and foot (M19.072) Active confirmed Plan Of Treatment Pending Test Test Name Order Date [id number] NAIL, 6 OR MORE 01/23/2015 [id number] Plate 01/23/2015 [id number] Plate Each Additional 01/2015 [id number] SKIN LESIONS, OVER 4 01/24/20 15 Insurance Providers Payer Name Payer Address Payer Phone Subscriber Number Group Number Insured Name Patient Relationship to Insured Coverage Start Date Coverage End Date [employer] [place] [employer] Advantage [facility] [address] [place] [address] [id number] Naty Cervantes Self - patient is the insured Medical (General) History Medical History History ICD Code Chicken pox Measles Mumps Hypertension Thyroid disorder Diabetic Arthritis Back,Hip,and Knee pain CAD (Cholesterol) Gall bladder problems Vascular phlebitis (clots) Stroke Cataracts Hearing loss Surgical History Surgery Date(Month/Year) cholecystectomy hysterectomy 1994 back surgery 1991 gall bladder 1970 cataract surgery Hospitalization History Reason Date(Month/Year) [facility]- Stroke- rehab
--- OUTSIDE RECORDS SUMMARY | 2025-09-13 14:04 | XMS_ITS | Clinical Summary ---
Author Organization [facility] Address [address] [address] Phone Care Team Providers Care Facility Worker Name Role Phone Trevor Rios MD [...] Advance Directives For more information, please contact: [phone] (9AM - 5PM [place], Thursday-Thursday) Documents on File Type Date Recorded Patient Superintendent [employer]arry Expl anation [facility]OLST 08/05/2024 Care Teams Facility Worker Relationship Specialty Start Date End Date Trevor Rios MD [address] [place] [address] PCP - General Internal Medicine 09/02/24 Additional Source Comments The information contained in this document represents components of the legal health record. It is not the complete legal health record.[facility]
--- OUTSIDE RECORDS SUMMARY | 2025-09-13 14:04 | XMS_ITS | Clinical Summary ---
Author Organization [address] Address [address] [place] [phone] Phone Care Team Providers Care Cable Assembler Name Role Phone Bruce Welch MD Primary Care Provider [phone] Encounters Date Type Department Care Team Description 07/14/2025 Lab Requisition [facility] - Main Lab [address] [place] [phone] Bruce Welch MD Type 2 diabetes mellitus without complications ([facility] V24, CMS/[facility] V28); Anemia, unspecified 07/08/[address] [facility] Lab [address] [facility] [place] [phone] Bruce Welch MD Type 2 diabetes mellitus without complications (CMS/[facility] V24, CMS/[facility] V28); Anemia, unspecified 07/05/[address] [facility] Lab [address] [facility] [place] [phone] Bruce Welch MD Essential (primary) hypertension; Hypomagnesemia 06/30/2025 Lab Requisition [facility] Main Lab [address] [facility] [place] [phone] Bruce Welch MD Type 2 diabetes mellitus without complications (CMS/HCC V24, CMS/[facility] V28); Anemia, unspecified 06/24/2025 Lab Requisition [facility] Main Lab [address] [facility] [place] [phone] Bruce Welch MD Type 2 diabetes mellitus without complications (CMS/HCC V24, CMS/[facility] V28); Anemia, unspecified 06/19/2025 Lab Requisition [facility] - Main Lab [address] [facility] [place] [address] Bruce Welch MD Anemia, unspecified; Type 2 diabetes mellitus without complications ([facility] V24, [facility] V28); Hyperlipidemia, unspecified; Hypothyroidism, unspecified; Magnesium deficiency; [...] 2 diabetes mellitus without complications (CMS/HCC V24, [facility] V28) Anemia, unspecified COMPLETE BLOOD COUNT Routine 07/03/2025 8:21 AM EDT Type 2 diabetes mellitus without complications ([facility] V24, [facility] V28) Anemia, unspecified BASIC METABOLIC PANEL Routine 06/26/2025 10:03 AM EDT Type 2 diabetes mellitus without complications ([facility] V24, [facility] V28) Anemia, unspecified COMPLETE BLOOD COUNT Routine 06/26/2025 10:03 AM EDT Type 2 diabetes mellitus without complications ([facility] V24, [facility] V28) Anemia, unspecified TRIIODOTHYRONINE FREE Routine 06/19/2025 5:26 AM EDT Anemia, unspecified Type 2 diabetes mellitus without complications ([facility] V24, [facility] V28) Hyperlipidemia, unspecified Hypothyroidism, unspecified Magnesium deficiency Vitamin B12 deficiency anemia, unspecified Vitamin D deficiency, unspecified FREE THYROXINE WITH REFLEX TO FREE TRIIODOTHYRONINE Routine 06/19/2025 5:26 AM EDT Anemia, unspecified Type 2 diabetes mellitus without complications ([facility] V24, [facility] V28) Hyperlipidemia, unspecified Hypothyroidism, unspecified Magnesium deficiency Vitamin B12 deficiency anemia, unspecified Vitamin D deficiency, unspecified VITAMIN D 25 HYDROXY Routine 06/19/2025 5:26 AM EDT Anemia, unspecified Type 2 diabetes mellitus without complications ([facility] V24, [facility] V28) Hyperlipidemia, unspecified Hypothyroidism, unspecified Magnesium deficiency Vitamin B12 deficiency anemia, unspecified Vitamin D deficiency, unspecified VITAMIN B12 AND FOLATE Routine 5:26 AM EDT Anemia, unspecified Type 2 diabetes mellitus without complications ([facility] V24, [facility] V28) Hyperlipidemia, unspecified Hypothyroidism, unspecified Magnesium deficiency Vitamin B12 deficiency anemia, unspecified Vitamin D deficiency, unspecified MAGNESIUM Routine 06/19/2025 5:26 AM EDT Anemia, unspecified Type 2 diabetes mellitus without complications ([facility]/HCC V24, CMS/[facility] V28) Hyperlipidemia, unspecified Hypothyroidism, unspecified Magnesium deficiency Vitamin B12 deficiency anemia, unspecified Vitamin D deficiency, unspecified THYROID STIMULATING HORMONE WITH REFLEX TO FREE T4 AND FREE T3 Routine 06/19/2025 5:26 AM EDT Anemia, unspecified Type 2 diabetes mellitus without complications ([facility] V24, [facility] V28) Hyperlipidemia, unspecified Hypothyroidism, unspecified Magnesium deficiency Vitamin B12 deficiency anemia, unspecified Vitamin D deficiency, unspecified LIPID PANEL WITH REFLEX TO DIRECT LDL Routine 06/19/2025 5:26 AM EDT Anemia, unspecified Type 2 diabetes mellitus without complications (CMS/[facility] V24, CMS/[facility] V28) Hyperlipidemia, unspecified Hypothyroidism, unspecified Magnesium deficiency Vitamin B12 deficiency anemia, unspecified Vitamin D deficiency, unspecified COMPREHENSIVE METABOLIC PANEL Routine 06/19/2025 5:26 AM EDT Anemia, unspecified Type 2 diabetes mellitus without complications ([facility] V24, CMS/[facility] V28) Hyperlipidemia, unspecified Hypothyroidism, unspecified Magnesium deficiency Vitamin B12 deficiency anemia, unspecified Vitamin D deficiency, unspecified COMPLETE BLOOD COUNT Routine 06/19/2025 5:26 AM EDT Anemia, unspecified Type 2 diabetes mellitus without complications ([facility] V24, CMS/[facility] V28) Hyperlipidemia, unspecified Hypothyroidism, unspecified Magnesium deficiency Vitamin B12 deficiency anemia, unspecified Vitamin D deficiency, unspecified HEMOGLOBIN A1C Routine 04/10/2025 7:55 AM EDT Vitamin D deficiency, unspecified Essential (primary) hypertension Unspecified atrial fibrillation (CMS/[facility] V24, CMS/[facility] V28) Type 2 diabetes mellitus without complications (CMS/[facility] V24, CMS/[facility] V28) from Last 3 Months or Most Recently Relevant to Health Maintenance Results * (ABNORMAL) Complete blood count (07/10/2025 9:59 AM EDT) Only the most recent of5 resultswithin the time period is included. WBC 7.2 4.8 - 10.8 K/mcL LAB HEMETOLOGY METHOD 07/10/2025 1:30 PM EDT [facility] RBC 4.40 3.80 - 4.80 M/mcL LAB HEMETOLOGY METHOD 07/10/2025 1:30 PM EDT [facility] Hemoglobin 11.0(L) 11.5 - 16.0 g/dL LAB HEMETOLOGY METHOD 07/10/2025 1:30 PM EDT [facility] Hematocrit 36.6 35.0 - 47.0 % LAB HEMETOLOGY METHOD 07/10/2025 1:30 PM EDT [facility] MCV 82.4 79.0 - 98.0 FL LAB HEMETOLOGY METHOD 07/10[facility]2025 [facility] MCH 24.8(L) 27.0 - 32.0 pcg LAB HEMETOLOGY METHOD 07/10/2025 1:30 [facility] MCHC 30.1(L) 32.0 - 37.0 g/dL LAB HEMETOLOGY METHOD 07/10/2025 1:30 [facility] RDW 15.5(H) 11.0 - 15.0 % LAB HEMETOLOGY METHOD 07/10/2025 1:30 PM EDT [facility] Platelets 451(H) 130 - 400 K/[facility] LAB HEMETOLOGY METHOD 07/10/2025 1:30 PM EDT [facility] MPV 10.8 7.0 - 11.0 FL LAB HEMETOLOGY METHOD 07/10/2025 1:30 PM EDT [facility] NRBC 0.0 <1.0 % LAB HEMETOLOGY METHOD 07/10/2025 1:30 PM EDT [facility] NRBC Absolute 0.00 <0.10 K/[facility] LAB HEMETOLOGY METHOD 07/10/2025 1:30 PM EDT [facility] Blood Venous blood specimen / Unknown Venipuncture / Unknown 07/10/2025 9:59 AM EDT 07/10/2025 10:51 AM EDT us Bruce Welch MD LAB BLOOD ORDERABLES Final Resul t [facility] [address] [place] [address], * (ABNORMAL) Basic metabolic panel (07/10/2025 9:59 AM EDT) Only the most recent of4 resultswithin the time period is included. Sodium 137 133 - 145 mmol/L LAB CHEMISTRY METHOD 07/10/2025 4:12 PM [facility] Potassium 4.4 3.5 - 5.5 mmol/L LAB CHEMISTRY METHOD 07/10/2025 4:12 PM [facility] Chloride 103 96 - 110 mmol/L LAB CHEMISTRY METHOD 07/10/2025 4:12 PM [facility] CO2 26 21 - 32 mmol/L LAB CHEMISTRY METHOD 07/10/2025 4:12 PM [facility] Anion Gap 8 3 - 11 LAB CHEMISTRY METHOD 07/10/2025 4:12 PM [facility] Glucose 120(H) 70 - 100 mg/dL LAB CHEMISTRY METHOD 07/10/2025 4:12 PM [facility] BUN 20 5 - 25 mg/dL LAB CHEMISTRY METHOD 07/10/2025 4:12 PM [facility] Creatinine 0.69 0.50 - 1.10 mg/dL LAB CHEMISTRY METHOD 07/10/2025 4:12 PM [facility] eGFR 88 >=60 mL/min/1. 73m2 LAB CHEMISTRY METHOD 07/10/2025 4:12 PM [facility] Comment:Calculation based on the Chronic Kidney Disease Epidemiology Collaboration (CKD-EPI) equation refit without adjustment for race. BUN/Creatinine Ratio 29.0 LAB CHEMISTRY METHOD 07/10/2025 4:12 PM EDT [facility] Calcium 9.7 8.5 - 10.5 mg/dL LAB CHEMISTRY METHOD 07/10/2025 4:12 PM EDT [facility] Blood Venous blood specimen / Unknown Venipuncture / Unknown 07/10/2025 9:59 AM EDT 07/10/2025 10:51 AM EDT us Bruce Welch MD LAB BLOOD ORDERABLES Final Resul t Performing Organization Address [facility] de Phone Number [facility] [address] [place] [address], [place] [phone] * (ABNORMAL) Magnesium (07/05/2025 6:12 AM EDT) Only the most recent of2 resultswithin the time period is included. Magnesium 1.8(L) 1.9 - 2.6 mg/dL LAB CHEMISTRY METHOD 07/05/2025 11:16 AM EDT [facility] Blood Venous blood specimen / Unknown Venipuncture / Unknown 07/05/2025 6:12 AM EDT 07/05/2025 9:34 AM EDT us Bruce Welch MD LAB BLOOD ORDERABLES Final Resul t Performing Organization Address [facility]/ZIP Co de Phone Number [facility] [address] [place] [address], [place] [phone] * (ABNORMAL) Thyroid stimulating hormone with reflex to free t4 and free t3 (06/19/2025 5:26 AM EDT) TSH 0.05(L) 0.40 - 4.00 mcIU/mL LAB CHEMISTRY METHOD 06/19/2025 5:27 PM EDT [facility] Blood Venous blood specimen / Unknown Venipuncture / Unknown 06/19/2025 5:26 AM EDT 06/19/2025 10:47 AM EDT us Bruce Welch MD LAB BLOOD ORDERABLES Final Resul t Performing Organization Address [facility]/ZIP Co de Phone Number [facility] [address] [place] [address], [place] [phone] * Free thyroxine with reflex to free triiodothyronine (06/19/2025 5:26 AM EDT) Free T4 1.40 0.70 - 1.80 ng/dL LAB CHEMISTRY METHOD 06/19/2025 6:04 PM EDT [facility] Blood Venous blood specimen / Unknown Venipuncture / Unknown 06/19/2025 5:26 AM EDT 06/19/2025 10:47 AM EDT us Bruce Welch MD LAB BLOOD ORDERABLES Final Resul t Performing Organization Address [facility] de Phone Number [facility] [address] [place] [address], [place] [phone] * Vitamin B12 and folate (06/19/2025 5:26 AM EDT) Vitamin B-12 774 250 - 900 pcg/mL LAB CHEMISTRY METHOD 06/19/2025 11:51 AM EDT [facility] Folate 6.4 2.8 - 17.0 ng/ml LAB CHEMISTRY METHOD 06/19/2025 11:51 AM EDT [facility] Blood Venous blood specimen / Unknown Venipuncture / Unknown 06/19/2025 5:26 AM EDT 06/19/2025 10:47 AM EDT us Bruce Welch MD LAB BLOOD ORDERABLES Final Resul t Performing Organization Address City/[facility]/ZIP Co de Phone Number [facility] [address] [place] [address], * Lipid panel with reflex to direct LDL (06/19/2025 5:26 AM EDT) Cholesterol 116 0 - 200 mg/dL LAB CHEMISTRY METHOD 06/19/2025 11:51 AM EDT [facility] Triglycerides 72 0 - 150 mg/dL LAB CHEMISTRY METHOD 06/19/2025 11:51 AM EDT [facility] HDL 58 >=40 mg/dL LAB CHEMISTRY METHOD 06/19/2025 11:51 AM EDT [facility] LDL Calculated 44 0 - 100 mg/dL LAB CHEMISTRY METHOD 06/19/2025 11:51 AM EDT [facility] VLDL Cholesterol Apolinar 14.4 mg/dL LAB CHEMISTRY METHOD 06/19/2025 11:51 AM EDT [facility] Non HDL Chol. (LDL+VLDL) 58 <145 mg/dL LAB CHEMISTRY METHOD 06/19/2025 11:51 AM EDT [facility] Chol/HDL Ratio 2.0 0.0 - 4.4 LAB CHEMISTRY METHOD 06/19/2025 11:51 AM EDT [facility] Blood Venous blood specimen / Unknown Venipuncture / Unknown 06/19/2025 5:26 AM EDT 06/19/2025 10:47 AM EDT Bruce Welch MD LAB BLOOD ORDERABLES Final Resul t [facility] [address] [place] [address], [place] [phone] * Vitamin D 25 hydroxy (06/19/2025 5:26 AM EDT) Vit D, 25-Hydroxy 72.3 30.0 - 80.0 ng/mL LAB CHEMISTRY METHOD 06/19/2025 1:24 PM EDT [facility] Blood Venous blood specimen / Unknown Venipuncture / Unknown 06/19/2025 5:26 AM EDT 06/19/2025 10:47 AM EDT us Bruce Welch MD LAB BLOOD ORDERABLES Final Resul t Performing Organization Address [facility]/ZIP Co de Phone Number [facility] [address] [place] [address], [place] [phone] * (ABNORMAL) Triiodothyronine free (06/19/2025 5:26 AM EDT) T3, Free 193(L) 230 - 420 pcg/dL LAB CHEMISTRY METHOD 06/19/2025 7:36 PM EDT [facility] Blood Venous blood specimen / Unknown Venipuncture / Unknown 06/19/2025 5:26 AM EDT 06/19/2025 10:47 AM EDT us Bruce Welch MD LAB BLOOD ORDERABLES Final Resul t Performing Organization Address [facility] de Phone Number [facility] [address] [place] [address], [place] [phone] * (ABNORMAL) Comprehensive metabolic panel (06/19/2025 5:26 AM EDT) Sodium 139 133 - 145 mmol/L LAB CHEMISTRY METHOD 06/19/2025 11:51 AM EDT [facility] Potassium 3.9 3.5 - 5.5 mmol/L LAB CHEMISTRY METHOD 06/19/2025 11:51 AM EDT [facility] Chloride 104 96 - 110 mmol/L LAB CHEMISTRY METHOD 06/19/2025 11:51 AM EDT [facility] CO2 27 21 - 32 mmol/L LAB CHEMISTRY METHOD 06/19/2025 11:51 AM [facility] Anion Gap 8 3 - 11 LAB CHEMISTRY METHOD 06/19/2025 11:51 AM [facility] Glucose 70 70 - 100 mg/dL LAB CHEMISTRY METHOD 06/19/2025 11:51 AM [facility] BUN 27(H) 5 - 25 mg/dL LAB CHEMISTRY METHOD 06/19/2025 11:51 AM [facility] Creatinine 0.91 0.50 - 1.10 mg/dL LAB CHEMISTRY METHOD 06/19/2025 11:51 AM [facility] eGFR 64 >=60 mL/min/1. 73m2 LAB CHEMISTRY METHOD 06/19/2025 11:51 AM [facility] Comment:Calculation based on the Chronic Kidney Disease Epidemiology Collaboration (CKD-EPI) equation refit without adjustment for race. BUN/Creatinine Ratio 29.7 LAB CHEMISTRY METHOD 06/19/2025 11:51 AM [facility] Calcium 9.3 8.5 - 10.5 mg/dL LAB CHEMISTRY METHOD 06/19/2025 11:51 AM [facility] AST (SGOT) 22 10 - 42 unit/L LAB CHEMISTRY METHOD 06/19/2025 11:51 AM [facility] ALT (SGPT) 26 10 - 60 unit/L LAB CHEMISTRY METHOD 06/19/2025 11:51 AM [facility] Alkaline Phosphatase 158(H) 42 - 121 unit/L LAB CHEMISTRY METHOD 06/19/2025 11:51 AM [facility] Total Protein 5.8(L) 6.0 - 8.0 g/dL LAB CHEMISTRY METHOD 06/19/2025 11:51 AM [facility] Albumin 2.8(L) 3.2 - 5.0 g/dL LAB CHEMISTRY METHOD 06/19/2025 11:51 AM [facility] Total Bilirubin 0.5 0.0 - 1.4 mg/dL LAB CHEMISTRY METHOD 06/19/2025 11:51 AM EDT [facility] Blood Venous blood specimen / Unknown Venipuncture / Unknown 06/19/2025 5:26 AM EDT 06/19/2025 10:47 AM EDT Bruce Welch MD LAB BLOOD ORDERABLES Final Resul t Performing Organization Address City/[facility]/ZIP Co de Phone Number [facility] [address] [place] [address], [place] [phone] * Hemoglobin A1c (04/10/2025 7:55 AM EDT) [...] ORDERABLES Final Resul t Performing Organization Address [facility] Co de Phone Number [facility] [address] [place] [address], [place] [phone] from Last 3 Months or Most Recently Relevant to Health Maintenance Insurance [employer] Care Teams Cable Assembler Relationship Specialty Start Date End Date Bruce Welch MD [address] [facility] [address] [place] [address] PCP - General Geriatric Medicine 06/19/25
--- OUTSIDE RECORDS SUMMARY | 2025-09-13 14:04 | XMS_ITS | Encounter Summary ---
Author Organization [facility] Address [address] [place] [address] Care Team Providers Care Parts Chaser Name Role Phone Bruce Welch MD Primary Care Provider [phone] Encounter Details Date Type Department Care Team (Late st Contact Info) Description 06/30/2025 Lab Requisition [facility] - Main Lab [address] [facility] [place] [address] Bruce Welch MD [address] [place], [place] [id number] Type 2 diabetes mellitus without complications (CMS/HCC [...] mmol/L LAB CHEMISTRY METHOD 07/03/2025 1:00 PM [facility] Potassium 4.2 3.5 - 5.5 mmol/L LAB CHEMISTRY METHOD 07/03/2025 1:00 PM [facility] Chloride 102 96 - 110 mmol/L LAB CHEMISTRY METHOD 07/03/2025 1:00 PM [facility] CO2 31 21 - 32 mmol/L LAB CHEMISTRY METHOD 07/03/2025 1:00 PM [facility] Anion Gap 6 3 - 11 LAB CHEMISTRY METHOD 07/03/2025 1:00 PM [facility] Glucose 74 70 - 100 mg/dL LAB CHEMISTRY METHOD 07/03/2025 1:00 PM [facility] BUN 15 5 - 25 mg/dL LAB CHEMISTRY METHOD 07/03/2025 1:00 PM [facility] Creatinine 0.72 0.50 - 1.10 mg/dL LAB CHEMISTRY METHOD 07/03/2025 1:00 PM [facility] eGFR 85 >=60 mL/min/1. 73m2 LAB CHEMISTRY METHOD 07/03/2025 1:00 PM [facility] Comment:Calculation based on the Chronic Kidney Disease Epidemiology Collaboration (CKD-EPI) equation refit without adjustment for race. BUN/Creatinine Ratio 20.8 LAB CHEMISTRY METHOD 07/03/2025 1:00 PM [facility] Calcium 9.4 8.5 - 10.5 mg/dL LAB CHEMISTRY METHOD 07/03/2025 1:00 PM [facility] Blood Venous blood specimen / Unknown Venipuncture / Unknown 07/03/2025 8:21 AM EDT 07/03/2025 11:55 AM EDT us Bruce Welch MD LAB BLOOD ORDERABLES Final Resul t [facility] [address] [place] [address], * (ABNORMAL) Complete blood count (07/03/2025 8:21 AM EDT) [facility] WBC 10.6 4.8 - 10.8 K/mcL LAB HEMETOLOGY METHOD 07/03/2025 1:24 PM EDT [facility] RBC 4.00 3.80 - 4.80 M/mcL LAB HEMETOLOGY METHOD 07/03/2025 1:24 PM EDT [facility] Hemoglobin 9.9(L) 11.5 - 16.0 g/dL LAB HEMETOLOGY METHOD 07/03/2025 1:24 PM [facility] Hematocrit 33.4(L) 35.0 - 47.0 % LAB HEMETOLOGY METHOD 07/03/2025 1:24 PM [facility] MCV 82.9 79.0 - 98.0 FL LAB HEMETOLOGY METHOD 07/03/2025 1:24 PM [facility] MCH 24.6(L) 27.0 - 32.0 pcg LAB HEMETOLOGY METHOD 07/03/2025 1:24 PM [facility] MCHC 29.6(L) 32.0 - 37.0 g/dL LAB HEMETOLOGY METHOD 07/03/2025 1:24 PM [facility] RDW 16.0(H) 11.0 - 15.0 % LAB HEMETOLOGY METHOD 07/03/2025 1:24 PM T [facility] Platelets 419(H) 130 - 400 K/mcL LAB HEMETOLOGY METHOD 07/03/2025 1:24 PM [facility] MPV 10.6 7.0 - 11.0 FL LAB HEMETOLOGY METHOD 07/03/2025 1:24 PM [facility] NRBC 0.0 <1.0 % LAB HEMETOLOGY METHOD 07/03/2025 1:24 PM EDT [facility] NRBC Absolute 0.00 <0.10 K/mcL LAB HEMETOLOGY METHOD 07/03/2025 1:24 PM EDT [facility] Blood Venous blood specimen / Unknown Venipuncture / Unknown 07/03/2025 8:21 AM EDT 07/03/2025 11:55 AM EDT Bruce Welch MD LAB BLOOD ORDERABLES Final Resul t [facility] [address] [place] [address], documented in this encounter Visit Diagnoses Diagnosis Type 2 diabetes mellitus without complications (CMS/HCC V24, CMS/HCC V28) Anemia, unspecified documented in this encounter Care Teams Parts Chaser Relationship Specialty Start Date End Date Bruce Welch MD [address] [place] [address] [address] [place] [address] PCP - General Geriatric Medicine 06/19/25 documented as of this encounter
--- OUTSIDE RECORDS SUMMARY | 2025-09-13 14:05 | XMS_ITS | Encounter Summary ---
Author Organization [facility] Address [address] [place] [id number] Care Team Providers Care Senior Living Sales Counselor Name Role Phone Bruce Welch MD Primary Care Provider [phone] Encounter Details Date Type Department Care Team (Late st Contact Info) Description 07/14/2025 Lab Requisition [facility] - Main Lab [address] [facility] [employer] [place] [address] Bruce Welch MD [address] [facility] [address] [place], [place] [id number] Type 2 diabetes mellitus without complications (CMS/HCC [...] unspecified documented in this encounter Care Teams Senior Living Sales Counselor Relationship Specialty Start Date End Date Bruce Welch MD [address] [facility] [address] [place], [place] [id number] PCP - General Geriatric Medicine 06/19/25 documented as of this encounter
--- OUTSIDE RECORDS SUMMARY | 2025-09-13 14:05 | XMS_ITS | Encounter Summary ---
Author Organization [facility] Address [address] [place] [address] Care Team Providers Care Mammalogy Teacher Name Role Phone Bruce Welch MD Primary Care Provider [phone] Encounter Details Date Type Department Care Team (Late st Contact Info) Description 07/05/2025 Lab Requisition [facility] - Main Lab [address] [facility] [place] [address] Bruce Welch MD [address] [place], [place] [phone] Essential (primary) hypertension; Hypomagnesemia Social History Tobacco [...] mg/dL LAB CHEMISTRY METHOD 07/05/2025 11:16 AM [facility] Blood Venous blood specimen / Unknown Venipuncture / Unknown 07/05/2025 6:12 AM EDT 07/05/2025 9:34 AM EDT us Bruce Welch MD LAB BLOOD ORDERABLES Final Resul t [facility] [address] [place] [address], * Basic metabolic panel (07/05/2025 6:12 AM EDT) Sodium 140 133 - 145 mmol/L LAB CHEMISTRY METHOD 07/05/2025 11:16 AM [facility] Potassium 4.6 3.5 - 5.5 mmol/L LAB CHEMISTRY METHOD 07/05/2025 11:16 AM [facility] Chloride 103 96 - 110 mmol/L LAB CHEMISTRY METHOD 07/05/2025 11:16 AM [facility] CO2 32 21 - 32 mmol/L LAB CHEMISTRY METHOD 07/05/2025 11:16 AM [facility] Anion Gap 5 3 - 11 LAB CHEMISTRY METHOD 07/05/2025 11:16 AM [facility] Glucose 91 70 - 100 mg/dL LAB CHEMISTRY METHOD 07/05/2025 11:16 AM [facility] BUN 16 5 - 25 mg/dL LAB CHEMISTRY METHOD 07/05/2025 11:16 AM [facility] Creatinine 0.70 0.50 - 1.10 mg/dL LAB CHEMISTRY METHOD 07/05/2025 11:16 AM [facility] LAB eGFR 88 >=60 mL/min/1. 73m2 LAB CHEMISTRY METHOD 07/05/2025 11:16 AM [facility] LAB Comment:Calculation based on the Chronic Kidney Disease Epidemiology Collaboration (CKD-EPI) equation refit without adjustment for race. BUN/Creatinine Ratio 22.9 LAB CHEMISTRY METHOD 07/05/2025 11:16 AM EDT [facility] Calcium 8.9 8.5 - 10.5 mg/dL LAB CHEMISTRY METHOD 07/05/2025 11:16 AM EDT [facility] Blood Venous blood specimen / Unknown Venipuncture / Unknown 07/05/2025 6:12 AM EDT 07/05/2025 9:34 AM EDT us Bruce Welch MD LAB BLOOD ORDERABLES Final Resul t [facility] LAB [address] [place] [address], [place] [phone] * (ABNORMAL) Complete blood count (07/05/2025 6:12 AM EDT) WBC 9.1 4.8 - 10.8 K/mcL LAB HEMETOLOGY METHOD 07/05/2025 10:26 AM [facility] RBC 4.30 3.80 - 4.80 M/mcL LAB HEMETOLOGY METHOD 07/05/2025 10:26 AM [facility] Hemoglobin 10.7(L) 11.5 - 16.0 g/dL LAB HEMETOLOGY METHOD 07/05/2025 10:26 AM [facility] Hematocrit 35.4 35.0 - 47.0 % LAB HEMETOLOGY METHOD 07/05/2025 10:26 AM [facility] MCV 81.6 79.0 - 98.0 FL LAB HEMETOLOGY METHOD 07/05/2025 10:26 AM [facility] MCH 24.7(L) 27.0 - 32.0 pcg LAB HEMETOLOGY METHOD 07/05/2025 10:26 AM [facility] MCHC 30.2(L) 32.0 - 37.0 g/dL LAB HEMETOLOGY METHOD 07/05/2025 10:26 AM EDT [facility] RDW 15.9(H) 11.0 - 15.0 % LAB HEMETOLOGY METHOD 07/05/2025 10:26 AM EDT [facility] Platelets 387 130 - 400 K/mcL LAB HEMETOLOGY METHOD 07/05/2025 10:26 AM EDT [facility] MPV 10.6 7.0 - 11.0 FL LAB HEMETOLOGY METHOD 07/05/2025 10:26 AM EDT [facility] NRBC 0.0 <1.0 % LAB HEMETOLOGY METHOD 07/05/2025 10:26 AM EDT [facility] NRBC Absolute 0.00 <0.10 K/mcL LAB HEMETOLOGY METHOD 07/05/2025 10:26 AM EDT [facility] Blood Venous blood specimen / Unknown Venipuncture / Unknown 07/05/2025 6:12 AM EDT 07/05/2025 9:34 AM EDT Bruce Welch MD LAB BLOOD ORDERABLES Final Resul t [facility] [address] [place] [address], documented in this encounter Visit Diagnoses Diagnosis Essential (primary) hypertension Unspecified essential hypertension Hypomagnesemia Disorders of magnesium metabolism documented in this encounter Care Teams Mammalogy Teacher Relationship Specialty Start Date End Date Bruce Welch MD [address] [place], [place] [id number] [place] [address] PCP - General Geriatric Medicine 06/19/25 documented as of this encounter
--- OUTSIDE RECORDS SUMMARY | 2025-09-13 14:05 | XMS_ITS | Encounter Summary ---
Author Organization [facility] Address [address] [place] [address] Care Team Providers Care Stretch Machine Operator Name Role Phone Bruce Welch MD Primary Care Provider [phone] Encounter Details Date Type Department Care Team (Late st Contact Info) Description 07/08/2025 Lab Requisition [facility] - Main Lab [address] [facility] [place] [address] Bruce Welch MD [address] [place], [place] [phone] Type 2 diabetes mellitus without complications (CMS/HCC [...] mmol/L LAB CHEMISTRY METHOD 07/10/2025 4:12 PM [facility] Potassium 4.4 3.5 - 5.5 mmol/L LAB CHEMISTRY METHOD 07/10/2025 4:12 PM [facility] Chloride 103 96 - 110 mmol/L LAB CHEMISTRY METHOD 07/10/2025 4:12 PM [facility] LAB CO2 26 21 - 32 mmol/L LAB CHEMISTRY METHOD 07/10/2025 4:12 PM [facility] LAB Anion Gap 8 3 - 11 LAB CHEMISTRY METHOD 07/10/2025 4:12 PM [facility] LAB Glucose 120(H) 70 - 100 mg/dL LAB CHEMISTRY METHOD 07/10/2025 4:12 PM [facility] BUN 20 5 - 25 mg/dL LAB CHEMISTRY METHOD 07/10/2025 4:12 PM [facility] Creatinine 0.69 0.50 - 1.10 mg/dL LAB CHEMISTRY METHOD 07/10/2025 4:12 PM [facility] LAB eGFR 88 >=60 mL/min/1. 73m2 LAB CHEMISTRY METHOD 07/10/2025 4:12 PM [facility] LAB Comment:Calculation based on the Chronic Kidney Disease Epidemiology Collaboration (CKD-EPI) equation refit without adjustment for race. BUN/Creatinine Ratio 29.0 LAB CHEMISTRY METHOD 07/10/2025 4:12 PM [facility] Calcium 9.7 8.5 - 10.5 mg/dL LAB CHEMISTRY METHOD 07/10/2025 4:12 PM [facility] Blood Venous blood specimen / Unknown Venipuncture / Unknown 07/10/2025 9:59 AM EDT 07/10/2025 10:51 AM EDT us Bruce Welch MD LAB BLOOD ORDERABLES Final Resul t [facility] [address] [place] [address], * (ABNORMAL) Complete blood count (07/10/2025 9:59 AM EDT) [facility] WBC 7.2 4.8 - 10.8 K/mcL LAB HEMETOLOGY METHOD 07/10/2025 1:30 PM EDT [facility] RBC 4.40 3.80 - 4.80 M/mcL LAB HEMETOLOGY METHOD 07/10/2025 1:30 PM EDT [facility] Hemoglobin 11.0(L) 11.5 - 16.0 g/dL LAB HEMETOLOGY METHOD 07/10/2025 1:[facility] Hematocrit 36.6 35.0 - 47.0 % LAB HEMETOLOGY METHOD 07/10/2025 1:30 [facility] MCV 82.4 79.0 - 98.0 FL LAB HEMETOLOGY METHOD 07/10/2025 1:30 PM [facility] MCH 24.8(L) 27.0 - 32.0 pcg LAB HEMETOLOGY METHOD 07/10/2025 1:30 PM [facility] MCHC 30.1(L) 32.0 - 37.0 g/dL LAB HEMETOLOGY METHOD 07/10/2025 1:30 PM [facility] RDW 15.5(H) 11.0 - 15.0 % LAB HEMETOLOGY METHOD 07/10/2025 1:30 PM EDT [facility] Platelets 451(H) 130 - 400 K/mcL LAB HEMETOLOGY METHOD 07/10/2025 1:30 PM [facility] MPV 10.8 7.0 - 11.0 FL LAB HEMETOLOGY METHOD 07/10/2025 1:30 PM [facility] NRBC 0.0 <1.0 % LAB HEMETOLOGY METHOD 07/10/2025 1:30 PM EDT [facility] NRBC Absolute 0.00 <0.10 K/mcL LAB HEMETOLOGY METHOD 07/10/2025 1:30 PM EDT [facility] Blood Venous blood specimen / Unknown Venipuncture / Unknown 07/10/2025 9:59 AM EDT 07/10/2025 10:51 AM EDT us Bruce Welch MD LAB BLOOD ORDERABLES Final Resul t [facility] [address] [place] [address], documented in this encounter Visit Diagnoses Diagnosis Type 2 diabetes mellitus without complications (CMS/HCC V24, CMS/HCC V28) Anemia, unspecified documented in this encounter Care Teams Stretch Machine Operator Relationship Specialty Start Date End Date Bruce Welch MD [address] [place] [address] [address] [place] [address] PCP - General Geriatric Medicine 06/19/25 documented as of this encounter
--- OUTSIDE RECORDS SUMMARY | 2025-09-13 14:05 | XMS_ITS | Patient Health Record ---
Author Organization [facility] Address [address] [place] [address] Care Team Providers Care Rn Transitional Name Role Phone Wilbur Velázquez M.D. Primary [...] Orally every 12 hrs/prn Active Vitamin D3 91318 UNIT 1 capsule Orally O nce a [...] Status Risk Notes Problem Colon cancer screening (873145222) Colon cancer screening (Z12.11) Active confirmed Problem MCC current use of non-steroidal anti-inflammat ory drug ([id number] 03) MCC (current) use of non-steroidal anti-inflammat ories (NSAID) (Z79.1) Active confirmed Problem Long-term current use of insulin (985377884) long term care pharmacist (current) use of insulin (Z79.4) Active confirmed Plan Of Treatment Future Test Test Name Order Date COLONOSCOPY 06/09/2018 Insurance Providers Payer Name Payer Address Payer Phone Subscriber Number Group Number Insured Name Patient Relationship to Insured Coverage Start Date Coverage End Date [facility] [address] [place] [phone] [id number] ALFONSO CUNHA Self - patient is the insured Medical (General) History Medical History History ICD Code hypertension diabetes mellitus elevated cholesterol hypothyroidism arthritis Surgical History Surgery Date(Month/Year) hysterectomy back surgery cholecystectomy cataract-lens implants both eyes
== END 2025-09-13 11:34 | disposition home or self-care (01) ==
LOC: HO.HSM 10:51
PROVIDERS: PCP Internal Medicine; Visit Provider Psychiatry & Neurology Neurology
DX: G56.00 Carpal tunnel syndrome, unspecified upper limb (principal); I63.9 Cerebral infarction, unspecified; G31.84 Mild cognitive impairment of uncertain or unknown etiology
CPT/HCPCS: 99214

== ENCOUNTER → 2025-09-13 10:50 | Outpatient (BNVA) | payer MEDICARE, SELFPAY | PROVIDERS: PCP Internal Medicine; Visit Provider Psychiatry & Neurology Neurology | DX: D50.0 Iron deficiency anemia secondary to blood loss (chronic) (principal); K21.9 Gastro-esophageal reflux disease without esophagitis; R63.0 Anorexia; G56.02 Carpal tunnel syndrome, left upper limb; I63.9 Cerebral infarction, unspecified | CPT/HCPCS: 99202; 99212 ==

== ENCOUNTER 2025-09-13 11:47 | Outpatient (AMB) | payer MEDICARE, SELFPAY ==
--- NOTE | 2025-09-13 12:08 | A.OFFVIS_ITS ---
Vital Signs 09/13/25 12:11 Height 5 ft 1 in Weight 143 lb BMI 27.0 BP 140/71 H Blood Pressure Location Lt brachial Position Sitting Pulse 54 Pulse Oximetry (%) 97 Oxygen Delivery Method Room Air Intake Visit Reasons: Anemia Intake Note: Patient new consult for Anemia, Colonoscopy results. Patient was saw in hospital consult by Dr. Morelos. Patient cc: abdominal cramps on and off, weight lost with poor appetite. Patient family said Jethro wanted her to do a Capsule test. Denies any other GI issues. Release Of Information Specialist Required: No Accompanied by: Family/Other Allergies amoxicillin (Augmentin) Allergy (Unknown, Verified 09/13/25 12:07) hives clavulanic acid (Augmentin) Allergy (Unknown, Verified 09/13/25 12:07) hives furosemide Allergy (Unknown, Verified 09/13/25 12:07) unknown latex (LATEX) Allergy (Unknown, Verified 09/13/25 12:07) UNKNOWN lisinopril Allergy (Unknown, Verified 09/13/25 12:07) Unknown oxycodone (Percocet) Allergy (Unknown, Verified 09/13/25 12:07) Stomach upset tramadol Allergy (Unknown, Verified 09/13/25 12:07) Stomach uspet Medication List - Last Reconciled 09/13/25 by Yas Sepulveda CNP apixaban (Eliquis) 5 mg PO BID atorvastatin 80 mg PO BEDTIME blood sugar diagnostic FREESTYLE LITE TEST STRIPS TO CHECK THREE TIMES A DAY blood-glucose meter (FreeStyle Lite Meter kit) As directed cyanocobalamin (vitamin B-12) 500 mcg PO DAILY ezetimibe 10 mg PO BEDTIME gabapentin 300 mg PO BEDTIME levothyroxine 112 mcg PO DAILY@0600 liraglutide 1.2 mg (0.2 mL) subcut DAILY 90 days magnesium oxide 800 mg (2 x 400 mg (241.3 mg magnesium)) PO BID 90 days metformin 1,000 mg PO BIDWM [Oxygen mask As directed] pen needle, diabetic (Novofine 32) As directed up to three times per day sertraline 50 mg PO BEDTIME 90 days [Stair lift As directed] zinc gluconate 50 mg PO DAILY HPI HPI Anemia: Details: Patient is a 79-year-old female with PMH of obesity, diabetes, hyperlipidemia, hypertension, COPD, paroxysmal atrial fibrillation on Eliquis. Referred by PCP for further evaluation of anemia. Naty presents for follow-up evaluation of iron deficiency anemia following hospitalization in March. Patient is accompanied by her granddaughter Milli . During admission, workup included colonoscopy revealing diverticulosis and internal hemorrhoids but no active GI bleed, and EGD showing hiatal hernia and a Schatzki ring at the esophagogastric junction. She reports persistent fatigue and weakness. She describes intermittent abdominal cramps, described similar to menstrual cramps, usually occurring in the morning after breakfast but resolving spontaneously, not clearly associated with specific foods or bowel movements. No associated constipation or diarrhea except with consumption of greasy or fatty foods, which she avoids. Shares appetite has significantly decreased over the past year with reduced oral intake and preference for small, simple portions (cereal, waffles with peanut butter, half a banana, sandwiches, small dinners), supplemented intermittently with Glucerna shakes. No major weight loss since hospitalization, but caregiver notes gradual weight decline compared to prior years. Relevant comorbidities include atrial fibrillation, COPD, and nocturnal hypoxemia managed with nocturnal 2L O2, with history of stroke and recent physical/occupational therapy after a fall. She discontinued omeprazole due to concern for hypomagnesemia. No current or recent GI bleeding reported. Patient denies: fever/chills, n/v, appetite changes, pyrosis, regurgitation,dysphasia, unintentional wt loss or melena/hematochezia. Social hx: -denies ETOH use -denies recreational drug use -former smoker, cessation 19 years ago. Currently uses e-cigarettes - family hx as below - personal hx of CA PFSH Medical History (Updated 09/15/25 @ 07:59 by Yas Sepulveda CNP) Acid reflux Decreased appetite Carpal tunnel syndrome Frequent falls Paroxysmal atrial fibrillation Orthostatic hypotension Anemia Buttock wound Obesity (BMI 30-39.9) Neuropathy Acquired hypothyroidism Mixed hyperlipidemia Essential hypertension Atrial fibrillation Hypothyroidism Obesity Type 2 diabetes mellitus with morbid obesity Annual physical exam Vitamin D deficiency HLD (hyperlipidemia) T2DM (type 2 diabetes mellitus) Diabetes mellitus Hypertension Surgical History H/O hysterectomy for benign disease History of vitrectomy History of surgery History of colonoscopy (~01/28/19) History of appendectomy History of cholecystectomy S/P JOSIE (total abdominal hysterectomy) Family History (Updated 09/13/25 @ 12:58 by Yas Sepulveda CNP) Father Diabetes Mother CHF (congestive heart failure) CVD (cardiovascular disease) Brother HIV (human immunodeficiency virus infection) Maternal Aunt Stomach cancer Social History Household Members: Children Household Members Other:: alternating among 2 daughters and 1 son Housing: House Do you presently have visiting nurse or other home services: No Alcohol intake: current Patient Tobacco Use Status: Former Tobacco user Tobacco use type: Cigarette Years Smoked: 30, started at 10, about 15 cig a day, e-Cigarette/Vaping Use: Former Use Second Hand Smoke Exposure: Yes Advance Directives Date on File: 12/15/23 service: No Current occupational status: retired Current occupational exposures/hazards: No Cognitive needs: No Hearing needs: No Vision needs: No Review of Systems Const Reports as per HPI ENT Reports as per HPI Card Reports as per HPI Resp Reports as per HPI GI Reports as per HPI Reports as per HPI Physical Exam Vital Signs: Last Vital Signs Pulse 54 09/13/25 12:11 BP 140/71 H 09/13/25 12:11 Pulse Ox 97 09/13/25 12:11 Oxygen Delivery Method Room Air 09/13/25 12:11 BMI result Body Mass Index 27.0 Const General: healthy appearing, no acute distress and well developed Nutritional Appearance: average body habitus Orientation/consciousness: patient oriented x3 HEENT Head: Yes normal to inspection, Yes normocephalic and Yes atraumatic Face and sinus: Yes normal facial exam Eyes General: appearance normal, both eyes and all related structures Neck Neck: Yes normal visual inspection Resp Effort & Inspection: normal respiratory effort, able to speak in complete sentences, no tracheal deviation and symmetric chest movement Cardio Jugular venous distension: no JVD GI Inspection: Yes normal to inspection, No distended and Yes obesity Palpation (GI): Soft to palpation, not firm, nontender and No hepatosplenomegaly present Auscultation: normoactive bowel sounds Neuro General: patient oriented x3 Gait exam (Neuro): Normal gait present Psych Appearance: grossly normal Mental Status: mental status grossly normal Speech and movement: Normal speech and movement present Affect: normal affect Attitude: cooperative Thought process: Normal thought process present Thought content: Normal thought content present Insight: Good insight present (Psych) Judgement: Good judgement present (Psych) Assessment & Plan Assessment & Plan (1) Anemia: Code(s): D64.9 - Anemia, unspecified Category: Medical Qualifiers: Anemia type: iron deficiency Iron deficiency anemia type: chronic blood loss Qualified Code(s): D50.0 - Iron deficiency anemia secondary to blood loss (chronic) Plan: Persistent anemia requiring hospitalization, no identified source on colonoscopy/EGD, ongoing low intake/appetite decline Additional Testing: - Capsule endoscopy ordered to assess for obscure GI bleeding, especially small bowel pathology - Fasting labs: iron studies and B12,/folate ordered Medication Management: - Continue current meds (apixaban, vitamins); no PPI restarted due to Mg absorption concerns - Encourage compliance with nutritional supplementation (Glucerna, OTC multivitamin) Lifestyle Recommendations: - Promote small frequent meals, protein/fiber emphasis, encourage vegetables as tolerated - Monitor for overt GI bleeding or significant appetite/weight changes Follow-Up: - Clinic visit in 6 weeks, earlier if capsule results return or symptoms worsen (2) Acid reflux: Code(s): K21.9 - Gastro-esophageal reflux disease without esophagitis Category: Medical Qualifiers: Esophagitis presence: esophagitis presence not specified Qualified Code(s): K21.9 - Gastro-esophageal reflux disease without esophagitis Plan: Prior history, now off omeprazole, no current symptoms Additional Testing: - None indicated unless symptoms recur Medication Management: - Remain off omeprazole unless needed due to prior hypomagnesemia risk Lifestyle Recommendations: - Avoid known reflux triggers Follow-Up: - Symptom-based re-eval as indicated (3) Decreased appetite: Code(s): R63.0 - Anorexia Category: Medical Plan: Reported significant change in eating habits, persistent low intake Additional Testing: - B12, folate, iron studies as above - Monitor trend in weight/nutritional status Medication Management: - Continue nutritional supplementation Lifestyle Recommendations: - Dietitian referral if intake fails to meet needs; maintain Glucerna, increase vegetables, protein-rich foods as tolerated Follow-Up: - Review labs, assess for reversibility, reinforce dietary support at next visit Plan Follow-up in 6 weeks or sooner as needed Time: I spent a total of 30 minutes on the date of encounter which includes: Preparing to see the patient (reviewed previous documentation, test results and medical history) Performing a medically appropriate exam and/or evaluation Ordering medications, tests, and procedures Documenting clinical information in the health record Orders: Orders Vitamin B12 and Folate 09/13/25 D50.0 - Iron deficiency anemia secondary to blood loss (chronic) IRON PROFILE 09/13/25 D50.0 - Iron deficiency anemia secondary to blood loss (chronic) Coding Level of Care Code New Pt New Pt Level 3 (36912) Patient Type New Diagnoses Iron deficiency anemia due to chronic blood loss D50.0 Anemia type: iron deficiency Iron deficiency anemia type: chronic blood loss Gastroesophageal reflux disease, unspecified whether esophagitis present K21.9 Esophagitis presence: esophagitis presence not specified Decreased appetite R63.0
[2025-09-13 12:11] VITALS: BP 140/71; PULSE 54; O2SAT 97; BMI 27.0
== END 2025-09-13 13:06 | disposition home or self-care (01) ==
LOC: HO.HGI 11:48
PROVIDERS: PCP Internal Medicine; Visit Provider Nurse Practitioner Family
DX: D50.0 Iron deficiency anemia secondary to blood loss (chronic) (principal); K21.9 Gastro-esophageal reflux disease without esophagitis; R63.0 Anorexia
CPT/HCPCS: 99203

== ENCOUNTER 2025-10-04 13:38 | Outpatient (AMB) | payer MEDICARE, SELFPAY ==
--- OUTSIDE RECORDS SUMMARY | 2024-07-13 09:30 | XMS_ITS ---
Author Organization [facility] Address [address] [place] [phone] Care Team Providers Care Excel Developer Name Role Phone Milana NATARAJAN, Allen Primary Care Provider Desire Arias [phone] Encounters Encounter Location Date Provider Diagnosis [address] [address] 07/13/2024 Desire Ashford Plan Of Treatment No Information Progress Notes * Naty CERVANTES LDOB: [birth year] (79 yo F)Acc No.[id number]:07/13/2024 Progress Note Patient: Naty WOLF Provider: Caitlin Ashford DPM :1945 A ge:78 Y S ex:Female Date:07/13/2024 Address:[address] [place], [place] [id number] Pcp:Allen Cortés MD Subjective: * Chief Complaints: [...] 0 07/13/2024 Generated for Peri gautam/Falesterg/eTransmitting on: 12/04/2024 04:33 PM EST
--- NOTE | 2025-10-04 13:39 | MHC.OFFVIS ---
Vital Signs 10/04/25 13:46 Height 5 ft 1 in Weight 143 lb BMI 27.0 BP 140/72 H Blood Pressure Location Lt brachial Position Sitting Respiration 16 Pulse 74 Pulse Source Pulse Oximeter Pulse Oximetry (%) 97 Oxygen Delivery Method Room Air Intake Visit Reasons: Cognitive testing Physical Education Teacher Required: No Allergies amoxicillin (Augmentin) Allergy (Unknown, Verified 10/04/25 13:48) hives clavulanic acid (Augmentin) Allergy (Unknown, Verified 10/04/25 13:48) hives furosemide Allergy (Unknown, Verified 10/04/25 13:48) unknown latex (LATEX) Allergy (Unknown, Verified 10/04/25 13:48) UNKNOWN lisinopril Allergy (Unknown, Verified 10/04/25 13:48) Unknown oxycodone (Percocet) Allergy (Unknown, Verified 10/04/25 13:48) Stomach upset tramadol Allergy (Unknown, Verified 10/04/25 13:48) Stomach uspet HPI Comments Details: Naty is a 79-year-old female patient with a past medical history of paroxysmal AFib, frequent falls, orthostatic hypotension, hypertension, type 2 diabetes, hyperlipidemia, and CVA who is here today for formal memory testing. She recently saw Dr. Jimenez on 09/13/2025 and he recommended formal testing. According to him, she has been less irritable and depressed on her sertraline 50 mg daily. She was still getting very frustrated easily. She was living with her son for 3 days and then her daughter's worsening with her regularly during the week on other days. In November of 2023, she had a sudden onset of left hand numbness with the minor cortical acute infarct in the right parietal area. CTA was negative. She was discharged. She had an episode which was more significant in June of 2024 and a repeat CTA showed occlusion of the proximal inferior division of the right M2 segment and she was found to have paroxysmal atrial fibrillation. She was sent to [facility]. A CT scan at [facility] showed a small right hemispheric infarct. She has made an overall good recovery accept her memory which is not as sharp as it used to be. She still has some numbness all of side. There has been reports of increasing short term memory problems and some overall increased agitation. Prior workup: MRI of the brain 03/2025 IMPRESSION: 1. No intracranial hemorrhage, mass effect, edema, or acute infarction. 2. 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 Somewhat age advanced cerebral and cerebellar involutional changes. 4. Moderate changes of small vessel ischemia. EEG 03/2025: Normal study [facility] Medical History (Updated 09/15/25 @ 07:59 by Yas Sepulveda CNP) Acid reflux Decreased appetite Carpal tunnel syndrome Frequent falls Paroxysmal atrial fibrillation Orthostatic hypotension Anemia Buttock wound Obesity (BMI 30-39.9) Neuropathy Acquired hypothyroidism Mixed hyperlipidemia Essential hypertension Atrial fibrillation Hypothyroidism Obesity Type 2 diabetes mellitus with morbid obesity Annual physical exam Vitamin D deficiency HLD (hyperlipidemia) T2DM (type 2 diabetes mellitus) Diabetes mellitus Hypertension Surgical History H/O hysterectomy for benign disease History of vitrectomy History of surgery History of colonoscopy (~01/28/19) History of appendectomy History of cholecystectomy S/P JOSIE (total abdominal hysterectomy) Family History (Updated 09/13/25 @ 12:58 by Yas Sepulveda CNP) Father Diabetes Mother CHF (congestive heart failure) CVD (cardiovascular disease) Brother HIV (human immunodeficiency virus infection) Maternal Aunt Stomach cancer Social History Household Members: Children Household Members Other:: alternating among 2 daughters and 1 son Housing: House Do you presently have visiting nurse or other home services: No Alcohol intake: current Patient Tobacco Use Status: Former Tobacco user Tobacco use type: Cigarette Years Smoked: 30, started at 10, about 15 cig a day, e-Cigarette/Vaping Use: Former Use Second Hand Smoke Exposure: Yes Advance Directives Date on File: 12/15/23 service: No Current occupational status: retired Current occupational exposures/hazards: No Cognitive needs: No Hearing needs: No Vision needs: No Physical Exam Exam Exam: MOCA: MOCA total: Executive:35 Namin/3 Attention:6 Language:13 Abstraction:0/2 Delayed recall:01/25 Orientation:03/28 Vital Signs: Last Vital Signs Pulse 74 10/04/25 13:46 Resp 16 10/04/25 13:46 BP 140/72 H 10/04/25 13:46 Pulse Ox 97 10/04/25 13:46 Oxygen Delivery Method Room Air 10/04/25 13:46 BMI result Body Mass Index 27.0 Const Orientation/consciousness: oriented to person, oriented to place and oriented to time Neuro General: oriented to person, oriented to place, oriented to time and moves all extremities Cranial nerves: Yes CN's II-XII intact bilaterally Cognition (Neuro): abnormal cognition (Some forgetfulness in conversation ) Gait exam (Neuro): Other gait observations present (Using wheelchair today) Assessment & Plan Assessment & Plan (1) MCI (mild cognitive impairment): Code(s): G31.84 - Mild cognitive impairment of uncertain or unknown etiology Category: Medical Plan Naty is a 79-year-old female patient with a past medical history of paroxysmal AFib, frequent falls, orthostatic hypotension, hypertension, type 2 diabetes, hyperlipidemia, and CVA who is here today for formal memory testing. Memory continues to be a primary concern and she is relying heavily on family for much of her executive functioning and some of her self-care. She has also had some mood changes which have improved since sertraline 50 mg however she does still have some irritability and agitation possibly in relation to her decreased ability to perform her ADLs independently. Family has been encouraging that she go to a senior center and she has 24 hour care otherwise. -recommending we look at B12 and TSH levels before making further decisions. B12 is already ordered and I will add an a TSH -could consider addition of donepezil or memantine for day-to-day functioning Orders: Orders TSH reflex Free T4 Today G31.84 - Mild cognitive impairment of uncertain or unknown etiology Coding Level of Care Code Est Pt Level 4 (69983) Diagnoses MCI (mild cognitive impairment) G31.84
[2025-10-04 13:46] VITALS: BP 140/72; PULSE 74; RESP 16; O2SAT 97; BMI 27.0
--- OUTSIDE RECORDS SUMMARY | 2025-10-04 16:33 | XMS_ITS | Clinical Summary ---
Author Organization [address] Address [address] [place] [phone] Phone Care Team Providers Care Chemical Blender Name Role Phone Bruce Welch MD Primary Care Provider [phone] Encounters Date Type Department Care Team Description 07/14/2025 Lab Requisition [facility] - Main Lab [address] [place] [phone] Bruce Welch MD Type 2 diabetes mellitus without complications ([facility] V24, CMS/[facility] V28); Anemia, unspecified 07/08/2025 Lab Requisition [facility] Lab [address] [place] [phone] Bruce Welch MD Type 2 diabetes mellitus without complications ([facility] V24, [facility] V28); Anemia, unspecified 07/05/2025 Lab Requisition [facility] Lab [address] [place] [phone] Bruce Welch MD Essential (primary) hypertension; Hypomagnesemia from Last 3 Months Social History Tobacco [...] 6:12 AM EDT Essential (primary) hypertension Hypomagnesemia LIPID PANEL WITH REFLEX TO DIRECT LDL [...] mellitus without complications (CMS/HCC V24, CMS/HCC V28) from Last 3 Months or Most Recently Relevant to Health Maintenance Results * (ABNORMAL) Complete blood count (07/10/2025 9:59 AM EDT) Only the most recent of2 resultswithin the time period is included. [facility] Signature WBC 7.2 4.8 - 10.8 K/[facility] LAB HEMETOLOGY METHOD 07/10/2025 1:30 PM EDT [facility] RBC 4.40 3.80 - 4.80 M/mcL LAB HEMETOLOGY METHOD 07/10/2025 1:30 PM EDT [facility] Hemoglobin 11.0(L) 11.5 - 16.0 g/dL LAB HEMETOLOGY METHOD 07/10/2025 1:30 PM EDT [facility] Hematocrit 36.6 35.0 - 47.0 % LAB HEMETOLOGY METHOD 07/10/2025 1:30 PM EDT [facility] MCV 82.4 79.0 - 98.0 FL LAB HEMETOLOGY METHOD [facility] MCH 24.8(L) 27.0 - 32.0 pcg LAB HEMETOLOGY METHOD 07/10/2025 [facility] MCHC 30.1(L) 32.0 - 37.0 g/dL LAB HEMETOLOGY METHOD 07/10/2025 [facility] RDW 15.5(H) 11.0 - 15.0 % LAB HEMETOLOGY METHOD 07/10/2025 1:30 PM EDT [facility] Platelets 451(H) 130 - 400 K/mcL LAB HEMETOLOGY METHOD 07/10/2025 1:30 PM EDT [facility] MPV 10.8 7.0 - 11.0 FL LAB HEMETOLOGY METHOD 07/10/2025 1:30 PM EDT [facility] NRBC 0.0 <1.0 % LAB HEMETOLOGY METHOD [facility]2025 [facility] NRBC Absolute 0.00 <0.10 K/mcL LAB HEMETOLOGY METHOD 07/10[facility]2025 [facility] Blood Venous blood specimen / Unknown Venipuncture / Unknown 07/10/2025 9:59 AM EDT 07/10/2025 10:51 AM EDT us Bruce Welch MD LAB BLOOD ORDERABLES Final Resul t [facility] [address] [place] [address], [place] [phone] * (ABNORMAL) Basic metabolic panel (07/10/2025 9:59 AM EDT) Only the most recent of2 resultswithin the time period is included. Sodium 137 133 - 145 mmol/L LAB CHEMISTRY METHOD 07/10/2025 4:12 PM [facility] Potassium 4.4 3.5 - 5.5 mmol/L LAB CHEMISTRY METHOD 07/10/2025 4:12 PM [facility] Chloride 103 96 - 110 mmol/L LAB CHEMISTRY METHOD 07/10/2025 4:12 PM [facility] CO2 26 21 - 32 mmol/L LAB CHEMISTRY METHOD 07/10/2025 4:12 PM [facility] Anion Gap 8 3 - 11 LAB CHEMISTRY METHOD 07/10/2025 4:12 PM [facility] Glucose 120(H) 70 - 100 mg/dL LAB CHEMISTRY METHOD 07/10/2025 4:12 PM [facility] BUN 20 5 - 25 mg/dL LAB CHEMISTRY METHOD 07/10/2025 4:12 PM [facility] Creatinine 0.69 0.50 - 1.10 mg/dL LAB CHEMISTRY METHOD 07/10/2025 4:12 PM [facility] LAB eGFR 88 >=60 mL/min/1. 73m2 LAB CHEMISTRY METHOD 07/10/2025 4:12 PM [facility] LAB Comment:Calculation based on the Chronic Kidney Disease Epidemiology Collaboration (CKD-EPI) equation refit without adjustment for race. BUN/Creatinine Ratio 29.0 LAB CHEMISTRY METHOD 07/10/2025 4:12 PM [facility] Calcium 9.7 8.5 - 10.5 mg/dL LAB CHEMISTRY METHOD 07/10/2025 4:12 PM EDT [facility] Blood Venous blood specimen / Unknown Venipuncture / Unknown 07/10/2025 9:59 AM EDT 07/10/2025 10:51 AM EDT us Bruce Welch MD LAB BLOOD ORDERABLES Final Resul t Performing Organization Address [facility] Co de Phone Number [facility] [address] [place] [address], [place] [phone] * (ABNORMAL) Magnesium (07/05/2025 6:12 AM EDT) Magnesium 1.8(L) 1.9 - 2.6 mg/dL LAB CHEMISTRY METHOD 07/05/2025 11:16 AM EDT [facility] Blood Venous blood specimen / Unknown Venipuncture / Unknown 07/05/2025 6:12 AM EDT 07/05/2025 9:34 AM EDT us Bruce Welch MD LAB BLOOD ORDERABLES Final Resul t Performing Organization Address [facility] de Phone Number [facility] [address] [place] [address], [place] [phone] * Lipid panel with reflex to direct [...] AM EDT [facility] Chol/HDL Ratio 2.0 0.0 - 4.4 LAB CHEMISTRY METHOD 06/19/2025 11:51 AM EDT [facility] Blood Venous blood specimen / Unknown Venipuncture / Unknown 06/19/2025 5:26 AM EDT 06/19/2025 10:47 AM EDT us Bruce Welch MD LAB BLOOD ORDERABLES Final Resul t Performing Organization Address City/[facility]/ZIP Co de Phone Number [facility] [address] [place] [address], [place] [phone] * Hemoglobin A1c (04/10/2025 7:55 AM EDT) [...] ORDERABLES Final Resul t Performing Organization Address City/[facility]/ZIP Co de Phone Number [facility] [address] [place] [address], [place] [phone] from Last 3 Months or Most Recently Relevant to Health Maintenance Insurance [employer] Care Teams Chemical Blender Relationship Specialty Start Date End Date Bruce Welch MD [address] [place] [address] [address] [place] [address] PCP - General Geriatric Medicine 06/19/25
--- OUTSIDE RECORDS SUMMARY | 2025-10-04 16:33 | XMS_ITS | Encounter Summary ---
Author Organization [facility] Address [address] [place] [phone] Care Team Providers Care Forest Landscape Ecology Professor Name Role Phone Bruce Welch MD Primary Care Provider [phone] Encounter Details Date Type Department Care Team (Late st Contact Info) Description 04/21/2025 Lab Requisition [facility] - Main Lab [address] [facility] [place] [address] Bruce Welch MD [address] [place], [place] [phone] Vitamin D deficiency, unspecified; Essential (primary) hypertension; [...] V28) documented in this encounter Care Teams Forest Landscape Ecology Professor Relationship Specialty Start Date End Date Bruce Welch MD [address] [place], [place] [phone] PCP - General Geriatric Medicine 06/19/25 documented as of this encounter
--- OUTSIDE RECORDS SUMMARY | 2025-10-04 16:33 | XMS_ITS | Clinical Summary ---
Author Organization [facility] Address [address] [place] [address] Care Team Providers Care Licensed Investment Sales Assistant Name Role Phone Allen Cortés MD Primary Care Provider [phone] Allergies No known active allergies Medications ezetimibe [...] Years Used Date Smoking Tobacco: Never Assessed [facility] Utilities Answer Date Recorded In [...] a senior living (including now)? No 06/27/2024 Comments Unknown Sex [...] A1C 7.0(H) <5.7 % 06/27/2024 9:07 AM [facility] Comment: A1c% Interpretation 5.7 - 6.0 Increase risk of diabetes 6.1 - 6.4 Higher risk of diabetes > or = 6.5 Consistent with diabetes Diabetes Care, 33(Supp 1):S1-S61, 2010 Estimated Average Glucose 154 mg/dL 06/27/2024 9:07 AM [facility] Blood Blood specimen / Unknown 06/27/2024 8:21 AM EDT 06/27/2024 8:32 AM EDT Paul Ospina MD LAB BLOOD [place] [address], [place] [address] * (ABNORMAL) Lipid Panel (06/27/2024 8:21 AM EDT) Cholesterol, Total 141 <200 mg/dL 2023 9:18 AM [facility] Triglycerides 169(H) <150 mg/dL 06/27/2024 9:18 AM [facility] Cholesterol, HDL 58 >39 mg/dL 06/27/20 9:18 AM [facility] Estimated LDL 49 <130 mg/dL 06/27/2024 9:18 AM [facility] Comment: NCEP Guidelines: < 100 mg/dL Optimal 100 - 129 mg/dL Near Optimal/Above Optimal 130 - 159 mg/dL Borderline High 160 - 189 mg/dL High >/= 190 mg/dL Very High Cholesterol/HDL Ratio 2.4 0.0 - 5.0 Ratio 06/27/2024 9:18 AM [facility] Comment: Relative Risk Ratio - Male Ratio - Female 0.5 3.4 3.3 1.0 5.0 4.4 2.0 9.6 7.1 3.0 23.4 11.0 Blood (Plasma/Serum) 06/27/2024 8:21 AM EDT 06/27/2024 8:32 AM EDT Paul Ospina MD LAB BLOOD ORDERABLES Final Result [address] [address], [address] [address] from Last 3 Months or Most Recently Relevant to Health Maintenance Insurance MEDICARE PART A & B [facility] MEDICARE Advance Directives * DNR (Latest Code Status on File) Date Activated Date Inactivated Comments 06/27/2024 4:12 PM Question Answer Comments Decision thoroughly discussed with: Gail ent arrived with valid State [place] DNR Transfer form * Full Code Date Activated Date Inactivated Comments 06/26/2024 8:41 PM 06/27/2024 4:12 PM Care Teams Licensed Investment Sales Assistant Relationship Specialty Start Date End Date Allen Cortés MD [address] [place] [address] PCP - General 06/26/24
--- OUTSIDE RECORDS SUMMARY | 2025-10-04 16:33 | XMS_ITS | Encounter Summary ---
Author Organization [facility] Address [address] [place] [address] Care Team Providers Care Dip Unit Operator Name Role Phone Bruce Welch MD Primary Care Provider [phone] Encounter Details Date Type Department Care Team (Late st Contact Info) Description 04/16/[address] [facility] - Main Lab [address] [facility] [place] [address] Bruce Welch MD [address] [place], [place] [phone] Vitamin D deficiency, unspecified; Essential (primary) hypertension; [...] 2 diabetes mellitus without complications (CMS/HCC V24, CMS/[facility] V28) documented in this encounter Results * Basic metabolic panel (04/18/2025 6:41 AM EDT) Sodium 138 133 - 145 mmol/L LAB CHEMISTRY METHOD 04/18/2025 12:48 PM [facility] Potassium 4.5 3.5 - 5.5 mmol/L LAB CHEMISTRY METHOD 04/18/2025 12:48 PM [facility] Chloride 102 96 - 110 mmol/L LAB CHEMISTRY METHOD 04/18/2025 12:48 PM [facility] CO2 26 21 - 32 mmol/L LAB CHEMISTRY METHOD 04/18/2025 12:48 PM [facility] Anion Gap 10 3 - 11 LAB CHEMISTRY METHOD 04/18/2025 12:48 PM [facility] Glucose 73 70 - 100 mg/dL LAB CHEMISTRY METHOD 04/18/2025 12:48 PM [facility] BUN 16 5 - 25 mg/dL LAB CHEMISTRY METHOD 04/18/2025 12:48 PM [facility] Creatinine 0.68 0.50 - 1.10 mg/dL LAB CHEMISTRY METHOD 04/18/2025 12:48 PM [facility] eGFR 89 >=60 mL/min/1. 73m2 LAB CHEMISTRY METHOD 04/18/2025 12:48 PM [facility] Comment:Calculation based on the Chronic Kidney Disease Epidemiology Collaboration (CKD-EPI) equation refit without adjustment for race. BUN/Creatinine Ratio 23.5 LAB CHEMISTRY METHOD 04/18/2025 12:48 PM [facility] Calcium 9.2 8.5 - 10.5 mg/dL LAB CHEMISTRY METHOD 04/18/2025 12:48 PM [facility] Blood Venous blood specimen / Unknown Venipuncture / Unknown 04/18/2025 6:41 AM EDT 04/18/2025 10:47 AM EDT us Bruce Welch MD LAB BLOOD ORDERABLES Final Resul t [facility] [address] [place] [address], [place] [phone] * (ABNORMAL) Complete blood count (04/18/2025 6:41 AM EDT) WBC 8.4 4.8 - 10.8 K/mcL LAB HEMETOLOGY METHOD 04/18/2025 12:24 PM EDT [facility] RBC 3.60(L) 3.80 - 4.80 M/mcL LAB HEMETOLOGY METHOD 04/18/2025 12:24 PM EDT [facility] Hemoglobin 8.7(L) 11.5 - 16.0 g/dL LAB HEMETOLOGY METHOD 04/18/2025 12:24 PM EDT [facility] Hematocrit 29.8(L) 35.0 - 47.0 % LAB HEMETOLOGY METHOD 04/18/2025 12:24 PM EDT [facility] MCV 83.7 79.0 - 98.0 FL LAB HEMETOLOGY METHOD 04/18/2025 12:24 PM EDT [facility] MCH 24.4(L) 27.0 - 32.0 pcg LAB HEMETOLOGY METHOD 04/18/2025 12:24 PM EDT [facility] MCHC 29.2(L) 32.0 - 37.0 g/dL LAB HEMETOLOGY METHOD 04/18/2025 12:24 PM EDT [facility] RDW 15.3(H) 11.0 - 15.0 % LAB HEMETOLOGY METHOD 04/18/2025 12:24 PM EDT [facility] Platelets 411(H) 130 - 400 K/mcL LAB HEMETOLOGY METHOD 04/18/2025 12:24 PM EDT [facility] MPV 11.1(H) 7.0 - 11.0 FL LAB HEMETOLOGY METHOD 04/18/2025 12:24 PM EDT [facility] NRBC 0.0 <1.0 % LAB HEMETOLOGY METHOD 04/18/2025 12:24 PM EDT [facility] NRBC Absolute 0.00 <0.10 K/mcL [facility] 04/18/2025 12:24 PM EDT [facility] Blood Venous blood specimen / Unknown Venipuncture / Unknown 04/18/2025 6:41 AM EDT 04/18/2025 10:47 AM EDT Bruce Welch MD LAB BLOOD ORDERABLES Final Resul t [facility] [address] [place] [address], documented in this encounter Visit Diagnoses Diagnosis Vitamin D deficiency, unspecified Essential (primary) hypertension Unspecified essential hypertension Unspecified atrial fibrillation (CMS/HCC V24, CMS/HCC V28) Type 2 diabetes mellitus without complications (CMS/HCC V24, CMS/HCC V28) documented in this encounter Care Teams Dip Unit Operator Relationship Specialty Start Date End Date Bruce Welch MD [address] [place] [address] [address] [place] [address] PCP - General Geriatric Medicine 06/19/25 documented as of this encounter
--- OUTSIDE RECORDS SUMMARY | 2025-10-04 16:33 | XMS_ITS | Encounter Summary ---
Author Organization [facility] Address [address] [place] [address] Care Team Providers Care Kiln Hand Name Role Phone Bruce Welch MD Primary Care Provider [phone] Encounter Details Date Type Department Care Team (Late st Contact Info) Description 06/30/[address] [facility] - Main Lab [address] [facility] [place] [address] Bruce Welch MD [address] [place], [place] [id number] Type 2 diabetes mellitus without complications (CMS/HCC [...] mmol/L LAB CHEMISTRY METHOD 07/03/2025 1:00 PM [facility] Potassium 4.2 3.5 - 5.5 mmol/L LAB CHEMISTRY METHOD 07/03/2025 1:00 PM [facility] Chloride 102 96 - 110 mmol/L LAB CHEMISTRY METHOD 07/03/2025 1:00 PM [facility] CO2 31 21 - 32 mmol/L LAB CHEMISTRY METHOD 07/03/2025 1:00 PM [facility] Anion Gap 6 3 - 11 LAB CHEMISTRY METHOD 07/03/2025 1:00 PM [facility] Glucose 74 70 - 100 mg/dL LAB CHEMISTRY METHOD 07/03/2025 1:00 PM [facility] BUN 15 5 - 25 mg/dL LAB CHEMISTRY METHOD 07/03/2025 1:00 PM [facility] Creatinine 0.72 0.50 - 1.10 mg/dL LAB CHEMISTRY METHOD 07/03/2025 1:00 PM [facility] eGFR 85 >=60 mL/min/1. 73m2 LAB CHEMISTRY METHOD 07/03/2025 1:00 PM [facility] Comment:Calculation based on the Chronic Kidney Disease Epidemiology Collaboration (CKD-EPI) equation refit without adjustment for race. BUN/Creatinine Ratio 20.8 LAB CHEMISTRY METHOD 07/03/2025 1:00 PM [facility] Calcium 9.4 8.5 - 10.5 mg/dL LAB CHEMISTRY METHOD 07/03/2025 1:00 PM [facility] Blood Venous blood specimen / Unknown Venipuncture / Unknown 07/03/2025 8:21 AM EDT 07/03/2025 11:55 AM EDT us Bruce Welch MD LAB BLOOD ORDERABLES Final Resul t [facility] [address] [place] [address], * (ABNORMAL) Complete blood count (07/03/2025 8:21 AM EDT) [facility] WBC 10.6 4.8 - 10.8 K/mcL LAB HEMETOLOGY METHOD 07/03/2025 1:24 PM EDT [facility] RBC 4.00 3.80 - 4.80 M/mcL LAB HEMETOLOGY METHOD 07/03/2025 1:24 PM EDT [facility] Hemoglobin 9.9(L) 11.5 - 16.0 g/dL LAB HEMETOLOGY METHOD [facility]25 [facility] Hematocrit 33.4(L) 35.0 - 47.0 % LAB HEMETOLOGY METHOD 07/03/2025 1:24 PM [facility] MCV 82.9 79.0 - 98.0 FL LAB HEMETOLOGY METHOD 07/03/2025 1:24 [facility] MCH 24.6(L) 27.0 - 32.0 pcg LAB HEMETOLOGY METHOD 07/03/2025 1:24 PM [facility] MCHC 29.6(L) 32.0 - 37.0 g/dL LAB HEMETOLOGY METHOD 07/03/2025 1:24 PM [facility] RDW 16.0(H) 11.0 - 15.0 % LAB HEMETOLOGY METHOD 07/03/2025 1:24 PM T [facility] Platelets 419(H) 130 - 400 K/mcL LAB HEMETOLOGY METHOD 07/03/2025 1:24 PM [facility] MPV 10.6 7.0 - 11.0 FL LAB HEMETOLOGY METHOD 07/03/2025 1:[facility] NRBC 0.0 <1.0 % LAB HEMETOLOGY METHOD 07/03/2025 1:24 PM EDT [facility] NRBC Absolute 0.00 <0.10 K/mcL LAB HEMETOLOGY METHOD 07/03/2025 1:24 PM EDT [facility] Blood Venous blood specimen / Unknown Venipuncture / Unknown 07/03/2025 8:21 AM EDT 07/03/2025 11:55 AM EDT Bruce Welch MD LAB BLOOD ORDERABLES Final Resul t [facility] [address] [place] [address], documented in this encounter Visit Diagnoses Diagnosis Type 2 diabetes mellitus without complications (CMS/HCC V24, CMS/HCC V28) Anemia, unspecified documented in this encounter Care Teams Kiln Hand Relationship Specialty Start Date End Date Bruce Welch MD [address] [place] [address] [address] [place] [address] PCP - General Geriatric Medicine 06/19/25 documented as of this encounter
--- OUTSIDE RECORDS SUMMARY | 2025-10-04 16:33 | XMS_ITS | Encounter Summary ---
Author Organization [facility] Address [address] [place] [address] Care Team Providers Care Lease Picker Name Role Phone Bruce Welch MD Primary Care Provider [phone] Encounter Details Date Type Department Care Team (Late st Contact Info) Description 06/19/2025 Lab Requisition [facility] - Main Lab [address] [facility] [place] [address] Bruce Welch MD [address] [place], [place] [id number] Anemia, unspecified; Type 2 diabetes mellitus without [...] unspecified Type 2 diabetes mellitus without complications ([facility] V24, [facility] V28) Hyperlipidemia, unspecified Hypothyroidism, unspecified Magnesium deficiency Vitamin B12 deficiency anemia, unspecified Vitamin D deficiency, unspecified LIPID PANEL WITH REFLEX TO DIRECT LDL Routine 06/19/2025 5:26 AM EDT Anemia, unspecified Type 2 diabetes mellitus without complications ([facility] V24, [facility] V28) Hyperlipidemia, unspecified Hypothyroidism, unspecified Magnesium deficiency Vitamin B12 deficiency anemia, unspecified Vitamin D deficiency, unspecified VITAMIN D 25 HYDROXY Routine 06/19/2025 5:26 AM EDT Anemia, unspecified Type 2 diabetes mellitus without complications ([facility] V24, [facility] V28) Hyperlipidemia, unspecified Hypothyroidism, unspecified Magnesium deficiency Vitamin B12 deficiency anemia, unspecified Vitamin D deficiency, unspecified COMPLETE BLOOD COUNT Routine 06/19/2025 5:26 AM EDT Anemia, unspecified Type 2 diabetes mellitus without complications ([facility] V24, [facility] V28) Hyperlipidemia, unspecified Hypothyroidism, unspecified Magnesium deficiency Vitamin B12 deficiency anemia, unspecified Vitamin D deficiency, unspecified TRIIODOTHYRONINE FREE Routine 06/19/2025 5:26 AM EDT Anemia, unspecified Type 2 diabetes mellitus without complications ([facility] V24, [facility] V28) Hyperlipidemia, unspecified Hypothyroidism, unspecified Magnesium deficiency Vitamin B12 deficiency anemia, unspecified Vitamin D deficiency, unspecified MAGNESIUM Routine 06/19/2025 5:26 AM EDT Anemia, unspecified Type 2 diabetes mellitus without complications ([facility] V24, [facility] V28) Hyperlipidemia, unspecified Hypothyroidism, unspecified Magnesium deficiency Vitamin B12 deficiency anemia, unspecified Vitamin D deficiency, unspecified COMPREHENSIVE METABOLIC PANEL Routine 06/19/2025 5:26 AM EDT Anemia, unspecified Type 2 diabetes mellitus without complications ([facility] V24, [facility] V28) Hyperlipidemia, unspecified Hypothyroidism, unspecified Magnesium deficiency Vitamin B12 deficiency anemia, unspecified Vitamin D deficiency, unspecified documented in this encounter Results * (ABNORMAL) Triiodothyronine free (06/19/2025 5:26 AM EDT) T3, Free 193(L) 230 - 420 pcg/dL LAB CHEMISTRY METHOD 06/19/2025 7:36 PM EDT [facility] Blood Venous blood specimen / Unknown Venipuncture / Unknown 06/19/2025 5:26 AM EDT 06/19/2025 10:47 AM EDT us Bruce Welch MD LAB BLOOD ORDERABLES Final Resul t Performing Organization Address City/[facility]/ZIP Co de Phone Number [facility] [address] [place] [address], [place] [phone] * Free thyroxine with reflex to free triiodothyronine (06/19/2025 5:26 AM EDT) Free T4 1.40 0.70 - 1.80 ng/dL LAB CHEMISTRY METHOD 06/19/2025 6:04 PM EDT [facility] Blood Venous blood specimen / Unknown Venipuncture / Unknown 06/19/2025 5:26 AM EDT 06/19/2025 10:47 AM EDT us Bruce Welch MD LAB BLOOD ORDERABLES Final Resul t Performing Organization Address City/[facility]/ZIP Co de Phone Number [facility] [address] [place] [address], [place] [phone] * Vitamin D 25 hydroxy (06/19/2025 5:26 AM EDT) Vit D, 25-Hydroxy 72.3 30.0 - 80.0 ng/mL LAB CHEMISTRY METHOD 06/19/2025 1:24 PM EDT [facility] Blood Venous blood specimen / Unknown Venipuncture / Unknown 06/19/2025 5:26 AM EDT 06/19/2025 10:47 AM EDT us Bruce Welch MD LAB BLOOD ORDERABLES Final Resul t Performing Organization Address City/[facility] Co de Phone Number [facility] [address] [place] [address], [place] [phone] * Vitamin B12 and folate (06/19/2025 5:26 AM EDT) Vitamin B-12 774 250 - 900 pcg/mL LAB CHEMISTRY METHOD 06/19/2025 11:51 AM EDT [facility] Folate 6.4 2.8 - 17.0 ng/ml LAB CHEMISTRY METHOD 06/19/2025 11:51 AM EDT [facility] Blood Venous blood specimen / Unknown Venipuncture / Unknown 06/19/2025 5:26 AM EDT 06/19/2025 10:47 AM EDT us Bruce Welch MD LAB BLOOD ORDERABLES Final Resul t Performing Organization Address [facility]/ZIP Co de Phone Number [facility] [address] [place] [address], [place] [phone] * (ABNORMAL) Magnesium (06/19/2025 5:26 AM EDT) Magnesium 1.7(L) 1.9 - 2.6 mg/dL LAB CHEMISTRY METHOD 06/19/2025 11:29 AM EDT [facility] Blood Venous blood specimen / Unknown Venipuncture / Unknown 06/19/2025 5:26 AM EDT 06/19/2025 10:47 AM EDT us Bruce Welch MD LAB BLOOD ORDERABLES Final Resul t [facility] [address] [place] [address], [place] [phone] * (ABNORMAL) Thyroid stimulating hormone with reflex to free t4 and free t3 (06/19/2025 5:26 AM EDT) [facility] TSH 0.05(L) 0.40 - 4.00 mcIU/mL LAB CHEMISTRY METHOD 06/19/2025 5:27 PM EDT [facility] Blood Venous blood specimen / Unknown Venipuncture / Unknown 06/19/2025 5:26 AM EDT 06/19/2025 10:47 AM EDT us Bruce Welch MD LAB BLOOD ORDERABLES Final Resul t [facility] [address] [place] [address], [place] [phone] * Lipid panel with reflex to direct LDL (06/19/2025 5:26 AM EDT) [facility] Cholesterol 116 0 - 200 mg/dL LAB CHEMISTRY METHOD 06/19/2025 11:51 AM EDT [facility] Triglycerides 72 0 - 150 mg/dL LAB CHEMISTRY METHOD 06/19/2025 11:51 AM EDT [facility] HDL 58 >=40 mg/dL LAB CHEMISTRY METHOD 06/19/2025 11:51 AM EDT [facility] LDL Calculated 44 0 - 100 mg/dL LAB CHEMISTRY METHOD 06/19/2025 11:51 AM EDT [facility] VLDL Cholesterol Apolinar 14.4 mg/dL LAB CHEMISTRY METHOD 06/19/2025 11:51 AM EDT [facility] Non HDL Chol. (LDL+VLDL) 58 <145 mg/dL LAB CHEMISTRY METHOD 06/19/2025 11:51 AM [facility] Chol/HDL Ratio 2.0 0.0 - 4.4 LAB CHEMISTRY METHOD 06/19/2025 11:51 AM [facility] Blood Venous blood specimen / Unknown Venipuncture / Unknown 06/19/2025 5:26 AM EDT 06/19/2025 10:47 AM EDT us Bruce Welch MD LAB BLOOD ORDERABLES Final Resul t [facility] [address] [place] [address], * (ABNORMAL) Comprehensive metabolic panel (06/19/2025 5:26 AM EDT) Sodium 139 133 - 145 mmol/L LAB CHEMISTRY METHOD 06/19/2025 11:51 AM [facility] Potassium 3.9 3.5 - 5.5 mmol/L LAB CHEMISTRY METHOD 06/19/2025 11:51 AM [facility] Chloride 104 96 - 110 mmol/L LAB CHEMISTRY METHOD 06/19/2025 11:51 AM [facility] CO2 27 21 - 32 mmol/L LAB CHEMISTRY METHOD 06/19/2025 11:51 AM [facility] Anion Gap 8 3 - 11 LAB CHEMISTRY METHOD 06/19/2025 11:51 AM [facility] Glucose 70 70 - 100 mg/dL LAB CHEMISTRY METHOD 06/19/2025 11:51 AM [facility] BUN 27(H) 5 - 25 mg/dL LAB CHEMISTRY METHOD 06/19/2025 11:51 AM [facility] Creatinine 0.91 0.50 - 1.10 mg/dL LAB CHEMISTRY METHOD 06/19/2025 11:51 AM [facility] eGFR 64 >=60 mL/min/1. 73m2 LAB CHEMISTRY METHOD 06/19/2025 11:51 AM [facility] Comment:Calculation based on the Chronic Kidney Disease Epidemiology Collaboration (CKD-EPI) equation refit without adjustment for race. BUN/Creatinine Ratio 29.7 LAB CHEMISTRY METHOD 06/19/2025 11:51 AM [facility] Calcium 9.3 8.5 - 10.5 mg/dL LAB CHEMISTRY METHOD 06/19/2025 11:51 AM [facility] AST (SGOT) 22 10 - 42 unit/L LAB CHEMISTRY METHOD 06/19/2025 11:51 AM [facility] ALT (SGPT) 26 10 - 60 unit/L LAB CHEMISTRY METHOD 06/19/2025 11:51 AM [facility] Alkaline Phosphatase 158(H) 42 - 121 unit/L LAB CHEMISTRY METHOD 06/19/2025 11:51 AM [facility] Total Protein 5.8(L) 6.0 - 8.0 g/dL LAB CHEMISTRY METHOD 06/19/2025 11:51 AM [facility] Albumin 2.8(L) 3.2 - 5.0 g/dL LAB CHEMISTRY METHOD 06/19/2025 11:51 AM [facility] Total Bilirubin 0.5 0.0 - 1.4 mg/dL LAB CHEMISTRY METHOD 06/19/2025 11:51 AM [facility] Blood Venous blood specimen / Unknown Venipuncture / Unknown 06/19/2025 5:26 AM EDT 06/19/2025 10:47 AM EDT us Bruce Welch MD LAB BLOOD ORDERABLES Final Resul t [facility] [address] [place] [address], * (ABNORMAL) Complete blood count (06/19/2025 5:26 AM EDT) [facility] WBC 8.4 4.8 - 10.8 K/mcL LAB HEMETOLOGY METHOD 06/19/2025 11:23 AM [facility] RBC 4.40 3.80 - 4.80 M/mcL LAB HEMETOLOGY METHOD 06/19/2025 11:23 AM [facility] Hemoglobin 11.0(L) 11.5 - 16.0 g/dL LAB HEMETOLOGY METHOD 06/19/2025 11:23 AM [facility] Hematocrit 36.2 35.0 - 47.0 % LAB HEMETOLOGY METHOD 06/19/2025 11:23 AM [facility] MCV 83.0 79.0 - 98.0 FL LAB HEMETOLOGY METHOD 06/19/2025 11:23 AM [facility] MCH 25.2(L) 27.0 - 32.0 pcg LAB HEMETOLOGY METHOD 06/19/2025 11:23 AM [facility] MCHC 30.4(L) 32.0 - 37.0 g/dL LAB HEMETOLOGY METHOD 06/19/2025 11:23 AM [facility] RDW 17.2(H) 11.0 - 15.0 % LAB HEMETOLOGY METHOD 06/19/2025 11:23 AM [facility] Platelets 254 130 - 400 K/mcL LAB HEMETOLOGY METHOD 06/19/2025 11:23 AM [facility] MPV 11.4(H) 7.0 - 11.0 FL LAB HEMETOLOGY METHOD 06/19/2025 11:23 AM [facility] NRBC 0.0 <1.0 % LAB HEMETOLOGY METHOD 06/19/2025 11:23 AM [facility] NRBC Absolute 0.00 <0.10 K/[facility] LAB HEMETOLOGY METHOD 06/19/2025 11:23 AM EDT [facility] Blood Venous blood specimen / Unknown Venipuncture / Unknown 06/19/2025 5:26 AM EDT 06/19/2025 10:47 AM EDT Bruce Welch MD LAB BLOOD ORDERABLES Final Resul t [facility] [address] [place] [address], documented in this encounter Visit Diagnoses Diagnosis Anemia, unspecified Type 2 diabetes mellitus without complications (CMS/HCC V24, CMS/HCC V28) Hyperlipidemia, unspecified Hypothyroidism, unspecified Magnesium deficiency Disorders of magnesium metabolism Vitamin B12 deficiency anemia, unspecified Vitamin D deficiency, unspecified documented in this encounter Care Teams Lease Picker Relationship Specialty Start Date End Date Bruce Welch MD [address] [place] [address] [address] [place] [address] PCP - General Geriatric Medicine 06/19/25 documented as of this encounter
--- OUTSIDE RECORDS SUMMARY | 2025-10-04 16:33 | XMS_ITS | Encounter Summary ---
Author Organization [facility] Address [address] [place] [address] Care Team Providers Care Physician Assistant Certified Name Role Phone Bruce Welch MD Primary Care Provider [phone] Encounter Details Date Type Department Care Team (Late st Contact Info) Description 04/10/2025 Lab Requisition [facility] - Main Lab [address] [place] [address] Bruce Welch MD [address] [place], [place] [id number] Vitamin D deficiency, unspecified; Essential (primary) hypertension; [...] (ABNORMAL) Vitamin B12 (04/10/2025 7:55 AM EDT) [facility] Vitamin B-12 1,228(H) 250 - 900 pcg/mL LAB CHEMISTRY METHOD 04/10/2025 12:37 PM EDT [facility] Blood Venous blood specimen / Unknown Venipuncture / Unknown 04/10/2025 7:55 AM EDT 04/10/2025 10:43 AM EDT us Bruce Welch MD LAB BLOOD ORDERABLES Final Resul t Performing Organization Address City/[facility]/ZIP Co de Phone Number [facility] [address] [place] [address], [place] [phone] * Folate (04/10/2025 7:55 AM EDT) [facility] Folate 7.2 2.8 - 17.0 ng/ml LAB CHEMISTRY METHOD 04/10/2025 12:37 PM EDT [facility] Blood Venous blood specimen / Unknown Venipuncture / Unknown 04/10/2025 7:55 AM EDT 04/10/2025 10:43 AM EDT us Bruce Welch MD LAB BLOOD ORDERABLES Final Resul t Performing Organization Address [facility] Co de Phone Number [facility] [address] [place] [address], [place] [phone] * Vitamin D 25 hydroxy (04/10/2025 7:55 AM EDT) [facility] Vit D, 25-Hydroxy 71.3 30.0 - 80.0 ng/mL LAB CHEMISTRY METHOD 04/10/2025 2:06 PM EDT [facility] Blood Venous blood specimen / Unknown Venipuncture / Unknown 04/10/2025 7:55 AM EDT 04/10/2025 10:43 AM EDT us Bruce Welch MD LAB BLOOD ORDERABLES Final Resul t Performing Organization Address City/[facility]/ZIP Co de Phone Number [facility] [address] [place] [address], [place] [phone] * Hemoglobin A1c (04/10/2025 7:55 AM EDT) [facility] Hemoglobin A1C 6.3 <6.5 % LAB CHEMISTRY METHOD 04/10/2025 9:54 PM EDT [facility] Mean Bld Glu Estim. 134 mg/dL LAB CHEMISTRY METHOD 04/10/2025 9:54 PM EDT [facility] Blood Venous blood specimen / Unknown Venipuncture / Unknown 04/10/2025 7:55 AM EDT 04/10/2025 10:43 AM EDT us Bruce Welch MD LAB BLOOD ORDERABLES Final Resul t [facility] [address] [place] [address], [place] [phone] * (ABNORMAL) Lipid panel with reflex to direct LDL (04/10/2025 7:55 AM EDT) [facility] Cholesterol 94 0 - 200 mg/dL LAB CHEMISTRY METHOD 04/10/2025 12:37 PM [facility] Triglycerides 84 0 - 150 mg/dL LAB CHEMISTRY METHOD 04/10/2025 12:37 PM [facility] HDL 39(L) >=40 mg/dL LAB CHEMISTRY METHOD 04/10/2025 12:37 PM [facility] LDL Calculated 38 0 - 100 mg/dL LAB CHEMISTRY METHOD 04/10/2025 12:37 PM [facility] VLDL Cholesterol Apolinar 16.8 mg/dL LAB CHEMISTRY METHOD 04/10/2025 12:37 PM EDT [facility] Non HDL Chol. (LDL+VLDL) 55 <145 mg/dL LAB CHEMISTRY METHOD 04/10/2025 12:37 PM [facility] Chol/HDL Ratio 2.4 0.0 - 4.4 LAB CHEMISTRY METHOD 04/10/2025 12:37 PM [facility] Blood Venous blood specimen / Unknown Venipuncture / Unknown 04/10/2025 7:55 AM EDT 04/10/2025 10:43 AM EDT Bruce Welch MD LAB BLOOD ORDERABLES Final Resul t [facility] [address] [place] [address], [place] [phone] * (ABNORMAL) Comprehensive metabolic panel (04/10/2025 7:55 AM EDT) Sodium 142 133 - 145 mmol/L LAB CHEMISTRY METHOD 04/10/2025 12:37 PM [facility] Potassium 4.1 3.5 - 5.5 mmol/L LAB CHEMISTRY METHOD 04/10/2025 12:37 PM [facility] Chloride 107 96 - 110 mmol/L LAB CHEMISTRY METHOD 04/10/2025 12:37 PM [facility] CO2 27 21 - 32 mmol/L LAB CHEMISTRY METHOD 04/10/2025 12:37 PM [facility] Anion Gap 8 3 - 11 LAB CHEMISTRY METHOD 04/10/2025 12:37 PM [facility] Glucose 87 70 - 100 mg/dL LAB CHEMISTRY METHOD 04/10/2025 12:37 PM [facility] BUN 15 5 - 25 mg/dL LAB CHEMISTRY METHOD 04/10/2025 12:37 PM [facility] Creatinine 0.73 0.50 - 1.10 mg/dL LAB CHEMISTRY METHOD 04/10/2025 12:37 PM [facility] eGFR 84 >=60 mL/min/1. 73m2 LAB CHEMISTRY METHOD 04/10/2025 12:37 PM [facility] Comment:Calculation based on the Chronic Kidney Disease Epidemiology Collaboration (CKD-EPI) equation refit without adjustment for race. BUN/Creatinine Ratio 20.5 LAB CHEMISTRY METHOD 04/10/2025 12:37 PM T [facility] Calcium 8.4(L) 8.5 - 10.5 mg/dL LAB CHEMISTRY METHOD 04/10/2025 12:37 PM [facility] AST (SGOT) 35 10 - 42 unit/L LAB CHEMISTRY METHOD 04/10/2025 12:37 PM [facility] ALT (SGPT) 34 10 - 60 unit/L LAB CHEMISTRY METHOD 04/10/2025 12:37 PM [facility] Alkaline Phosphatase 225(H) 42 - 121 unit/L LAB CHEMISTRY METHOD 04/10/2025 12:37 PM [facility] Total Protein 5.4(L) 6.0 - 8.0 g/dL LAB CHEMISTRY METHOD 04/10/2025 12:37 PM [facility] Albumin 2.4(L) 3.2 - 5.0 g/dL LAB CHEMISTRY METHOD 04/10/2025 12:37 PM [facility] Total Bilirubin 0.4 0.0 - 1.4 mg/dL LAB CHEMISTRY METHOD 04/10/2025 12:37 PM [facility] Blood Venous blood specimen / Unknown Venipuncture / Unknown 04/10/2025 7:55 AM EDT 04/10/2025 10:43 AM EDT us Bruce Welch MD LAB BLOOD ORDERABLES Final Resul t [facility] [address] [place] [address], * (ABNORMAL) Complete blood count (04/10/2025 7:55 AM EDT) WBC 7.3 4.8 - 10.8 K/mcL LAB HEMETOLOGY METHOD 04/10/2025 12:23 PM EDT [facility] RBC 3.30(L) 3.80 - 4.80 M/mcL LAB HEMETOLOGY METHOD 04/10/2025 12:23 PM [facility] Hemoglobin 8.4(L) 11.5 - 16.0 g/dL LAB HEMETOLOGY METHOD 04/10/2025 12:23 PM [facility] Hematocrit 27.9(L) 35.0 - 47.0 % LAB HEMETOLOGY METHOD 04/10/2025 12:23 PM [facility] MCV 83.8 79.0 - 98.0 FL LAB HEMETOLOGY METHOD 04/10/2025 12:23 PM [facility] MCH 25.2(L) 27.0 - 32.0 pcg LAB HEMETOLOGY METHOD 04/10/2025 12:23 PM [facility] MCHC 30.1(L) 32.0 - 37.0 g/dL LAB HEMETOLOGY METHOD 04/10/2025 12:23 PM [facility] RDW 15.7(H) 11.0 - 15.0 % LAB HEMETOLOGY METHOD 04/10/2025 12:23 PM [facility] Platelets 279 130 - 400 K/mcL LAB HEMETOLOGY METHOD 04/10/2025 12:23 PM [facility] MPV 11.8(H) 7.0 - 11.0 FL LAB HEMETOLOGY METHOD 04/10/2025 12:23 PM [facility] NRBC 0.0 <1.0 % LAB HEMETOLOGY METHOD 04/10/2025 12:23 PM [facility] NRBC Absolute 0.00 <0.10 K/mcL LAB HEMETOLOGY METHOD 04/10/2025 12:23 PM [facility] Blood Venous blood specimen / Unknown Venipuncture / Unknown 04/10/2025 7:55 AM EDT 04/10/2025 10:43 AM EDT Bruce Welch MD LAB BLOOD ORDERABLES Final Resul t [facility] [address] [place] [address], [place] [phone] documented in this encounter Visit Diagnoses Diagnosis Vitamin D deficiency, unspecified Essential (primary) hypertension Unspecified essential hypertension Unspecified atrial fibrillation (CMS/[facility] V24, CMS/[facility] V28) Type 2 diabetes mellitus without complications (CMS/[facility] V24, CMS/[facility] V28) documented in this encounter Care Teams Physician Assistant Certified Relationship Specialty Start Date End Date Bruce Welch MD [address] [place] [address] [address] [place] [address] PCP - General Geriatric Medicine 06/19/25 documented as of this encounter
--- OUTSIDE RECORDS SUMMARY | 2025-10-04 16:33 | XMS_ITS | Encounter Summary ---
Author Organization [facility] Address [address] [place] [address] Care Team Providers Care Ekg Technician Name Role Phone Bruce Welch MD Primary Care Provider [phone] Encounter Details Date Type Department Care Team (Late st Contact Info) Description 06/24/2025 Lab Requisition [facility] - Main Lab [address] [facility] [place] [address] Bruce Welch MD [address] [place], [place] [id number] Type 2 diabetes mellitus without complications (CMS/HCC [...] mmol/L LAB CHEMISTRY METHOD 06/26/2025 1:23 PM [facility] Potassium 3.9 3.5 - 5.5 mmol/L LAB CHEMISTRY METHOD 06/26/2025 1:23 PM [facility] Chloride 103 96 - 110 mmol/L LAB CHEMISTRY METHOD 06/26/2025 1:23 PM [facility] CO2 27 21 - 32 mmol/L LAB CHEMISTRY METHOD 06/26/2025 1:23 PM [facility] Anion Gap 8 3 - 11 LAB CHEMISTRY METHOD 06/26/2025 1:23 PM [facility] Glucose 111(H) 70 - 100 mg/dL LAB CHEMISTRY METHOD 06/26/2025 1:23 PM [facility] BUN 21 5 - 25 mg/dL LAB CHEMISTRY METHOD 06/26/2025 1:23 PM [facility] Creatinine 0.69 0.50 - 1.10 mg/dL LAB CHEMISTRY METHOD 06/26/2025 1:23 PM [facility] eGFR 88 >=60 mL/min/1. 73m2 LAB CHEMISTRY METHOD 06/26/2025 1:23 PM [facility] Comment:Calculation based on the Chronic Kidney Disease Epidemiology Collaboration (CKD-EPI) equation refit without adjustment for race. BUN/Creatinine Ratio 30.4 LAB CHEMISTRY METHOD 06/26/2025 1:23 PM [facility] Calcium 8.6 8.5 - 10.5 mg/dL LAB CHEMISTRY METHOD 06/26/2025 1:23 PM [facility] Blood Venous blood specimen / Unknown Venipuncture / Unknown 06/26/2025 10:03 AM EDT 06/26/2025 11:19 AM EDT us Bruce Welch MD LAB BLOOD ORDERABLES Final Resul t [facility] [address] [place] [address], * (ABNORMAL) Complete blood count (06/26/2025 10:03 AM EDT) [facility] WBC 9.4 4.8 - 10.8 K/mcL LAB HEMETOLOGY METHOD [facility] RBC 4.10 3.80 - 4.80 M/mcL LAB HEMETOLOGY METHOD 06/26/2025 12:15 [facility] Hemoglobin 10.2(L) 11.5 - 16.0 g/dL LAB HEMETOLOGY METHOD 06/26/2025 12:15 PM [facility] Hematocrit 33.2(L) 35.0 - 47.0 % LAB HEMETOLOGY METHOD 06/26/2025 12:15 PM [facility] MCV 81.4 79.0 - 98.0 FL LAB HEMETOLOGY METHOD 06/26/2025 12:15 PM [facility] MCH 25.0(L) 27.0 - 32.0 pcg LAB HEMETOLOGY METHOD 06/26/2025 12:15 PM [facility] MCHC 30.7(L) 32.0 - 37.0 g/dL LAB HEMETOLOGY METHOD 06/26/2025 12:15 PM [facility] RDW 15.9(H) 11.0 - 15.0 % LAB HEMETOLOGY METHOD 06/26/2025 12:15 PM [facility] Platelets 364 130 - 400 K/mcL LAB HEMETOLOGY METHOD 06/26/2025 12:15 PM [facility] MPV 10.5 7.0 - 11.0 FL LAB HEMETOLOGY METHOD 06/26/2025 12:15 PM [facility] NRBC 0.0 <1.0 % LAB HEMETOLOGY METHOD 06/26/2025 12:15 PM EDT [facility] NRBC Absolute 0.00 <0.10 K/mcL LAB HEMETOLOGY METHOD 06/26/2025 12:15 PM EDT [facility] Blood Venous blood specimen / Unknown Venipuncture / Unknown 06/26/2025 10:03 AM EDT 06/26/2025 11:19 AM EDT us Bruce Welch MD LAB BLOOD ORDERABLES Final Resul t [facility] [address] [place] [address], documented in this encounter Visit Diagnoses Diagnosis Type 2 diabetes mellitus without complications (CMS/HCC V24, CMS/HCC V28) Anemia, unspecified documented in this encounter Care Teams Ekg Technician Relationship Specialty Start Date End Date Bruce Welch MD [address] [place] [address] [address] [place] [address] PCP - General Geriatric Medicine 06/19/25 documented as of this encounter
--- OUTSIDE RECORDS SUMMARY | 2025-10-04 16:33 | XMS_ITS | Clinical Summary ---
Author Organization [facility] Address [address] [address] Phone Care Team Providers Care Tiltrotor Crew Chief Name Role Phone Trevor Rios MD Primary [...] Advance Directives For more information, please contact: [phone] (9AM - 5PM [place], Thursday-Thursday) Documents on File Type Date Recorded Patient Loan Review Manager Expl anation MOLST 08/05/2024 Care Teams Tiltrotor Crew Chief Relationship Specialty Start Date End Date Trevor Rios MD [address] [place] [address] PCP - General Internal Medicine 09/02/24 Additional Source Comments The information contained in this document represents components of the legal health record. It is not the complete legal health record.[facility]
--- OUTSIDE RECORDS SUMMARY | 2025-10-04 16:33 | XMS_ITS | Patient Health Record ---
Author Organization [facility] Address [address] [place] [address] Care Team Providers Care Forensic Photographer Name Role Phone Milana NATARAJAN, Allen Primary Care Provider Desire Arias Unavailable [phone] Allergies No Known Allergies Reason For Referral [...] Problem Acquired hammer toe of right foot (7387069815721174 ) Other hammer toe(s) (acquired), right foot (M20.41) Active confirmed Problem Acquired hammer toe of left foot (9694805315075266 ) Other hammer toe(s) (acquired), left foot (M20.42) Active confirmed Problem Acquired hammer toe of left foot (7990302107187490 ) Hammer toe of left foot (M20.42) Active confirmed Problem Polyneuropathy due to type 2 diabetes mellitus (402795772) 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.42) Active confirmed Problem Localized, primary osteoarthritis of the ankle and/or foot (598257174) Osteoarthritis of left ankle and foot (M19.072) Active confirmed Plan Of Treatment Pending Test Test Name Order Date [id number] NAIL, 6 OR MORE 01/23/2015 [id number] Plate 01/23/2015 [id number] Plate Each Additional 01/2015 [id number] SKIN LESIONS, OVER 4 01/24/20 15 Insurance Providers Payer Name Payer Address Payer Phone Subscriber Number Group Number Insured Name Patient Relationship to Insured Coverage Start Date Coverage End Date [employer] [place] [employer] Advantage [facility] [address] [place] [address] [phone] [id number] Naty Cervantes Self - patient is the insured Medical (General) History Medical History History ICD Code Chicken pox Measles Mumps Hypertension Thyroid disorder Diabetic Arthritis Back,Hip,and Knee pain CAD (Cholesterol) Gall bladder problems Vascular phlebitis (clots) Stroke Cataracts Hearing loss Surgical History Surgery Date(Month/Year) cholecystectomy hysterectomy 1994 back surgery 1991 gall bladder 1970 cataract surgery Hospitalization History Reason Date(Month/[place] [facility] [place]
--- OUTSIDE RECORDS SUMMARY | 2025-10-04 16:34 | XMS_ITS | Encounter Summary ---
Author Organization [facility] Address [address] [place] [address] Care Team Providers Care Hanger Off Name Role Phone Bruce Welch MD Primary Care Provider [phone] Encounter Details Date Type Department Care Team (Late st Contact Info) Description 07/08/2025 Lab Requisition [facility] - Main Lab [address] [facility] [place] [address] Bruce Welch MD [address] [place], [place] [id number] Type 2 diabetes mellitus without complications (CMS/HCC [...] mmol/L LAB CHEMISTRY METHOD 07/10/2025 4:[address] [facility] Potassium 4.4 3.5 - 5.5 mmol/L LAB CHEMISTRY METHOD 07/10/2025 4:[address] [facility] Chloride 103 96 - 110 mmol/L LAB CHEMISTRY METHOD 07/10/2025 4:[address] [facility] CO2 26 21 - 32 mmol/L LAB CHEMISTRY METHOD 07/10/2025 4:[address] [facility] Anion Gap 8 3 - 11 LAB CHEMISTRY METHOD 07/10/2025 4:[address] [facility] Glucose 120(H) 70 - 100 mg/dL LAB CHEMISTRY METHOD 07/10/2025 4:[address] [facility] BUN 20 5 - 25 mg/dL LAB CHEMISTRY METHOD 07/10/2025 4:[address] [facility] Creatinine 0.69 0.50 - 1.10 mg/dL LAB CHEMISTRY METHOD 07/10/2025 4:[address] [facility] eGFR 88 >=60 mL/min/1. 73m2 LAB CHEMISTRY METHOD 07/10/2025 4:[address] [facility] Comment:Calculation based on the Chronic Kidney Disease Epidemiology Collaboration (CKD-EPI) equation refit without adjustment for race. BUN/Creatinine Ratio 29.0 LAB CHEMISTRY METHOD 07/10/2025 4:[address] [facility] Calcium 9.7 8.5 - 10.5 mg/dL LAB CHEMISTRY METHOD 07/10/2025 4:[address] [facility] Blood Venous blood specimen / Unknown Venipuncture / Unknown 07/10/2025 9:59 AM EDT 07/10/2025 10:51 AM EDT us Bruce Welch MD LAB BLOOD ORDERABLES Final Resul t [facility] [address] [place] [address], * (ABNORMAL) Complete blood count (07/10/2025 9:59 AM EDT) [facility] WBC 7.2 4.8 - 10.8 K/mcL LAB HEMETOLOGY METHOD 07/10/2025 1:30 PM EDT [facility] RBC 4.40 3.80 - 4.80 M/mcL LAB HEMETOLOGY METHOD 07/10/2025 1:30 PM EDT [facility] Hemoglobin 11.0(L) 11.5 - 16.0 g/dL LAB HEMETOLOGY METHOD [facility] Hematocrit 36.6 35.0 - 47.0 % LAB HEMETOLOGY METHOD 07/10/2025 [facility] MCV 82.4 79.0 - 98.0 FL LAB HEMETOLOGY METHOD 07/10/2025 1:[facility] MCH 24.8(L) 27.0 - 32.0 pcg LAB HEMETOLOGY METHOD 07/10/2025 1:[facility] MCHC 30.1(L) 32.0 - 37.0 g/dL LAB HEMETOLOGY METHOD 07/10/2025 1:[facility] RDW 15.5(H) 11.0 - 15.0 % LAB HEMETOLOGY METHOD 07/10/2025 1:30 PM EDT [facility] Platelets 451(H) 130 - 400 K/mcL LAB HEMETOLOGY METHOD 07/10/2025 1:[facility] MPV 10.8 7.0 - 11.0 FL LAB HEMETOLOGY METHOD 07/10/2025 1:[facility] NRBC 0.0 <1.0 % LAB HEMETOLOGY METHOD 07/10/2025 1:30 PM EDT [facility] NRBC Absolute 0.00 <0.10 K/mcL LAB HEMETOLOGY METHOD 07/10/2025 1:30 PM EDT [facility] Blood Venous blood specimen / Unknown Venipuncture / Unknown 07/10/2025 9:59 AM EDT 07/10/2025 10:51 AM EDT us Bruce Welch MD LAB BLOOD ORDERABLES Final Resul t [facility] [address] [place] [address], documented in this encounter Visit Diagnoses Diagnosis Type 2 diabetes mellitus without complications (CMS/HCC V24, CMS/HCC V28) Anemia, unspecified documented in this encounter Care Teams Hanger Off Relationship Specialty Start Date End Date Bruce Welch MD [address] [place] [address] [address] [place] [address] PCP - General Geriatric Medicine 06/19/25 documented as of this encounter
--- OUTSIDE RECORDS SUMMARY | 2025-10-04 16:34 | XMS_ITS | Patient Health Record ---
Author Organization [facility] Address [address] [place] [address] Care Team Providers Care Mold Maker Helper Name Role Phone Wilbur Velázquez M.D. Primary Care Provider rEna Obrien Jr Desean Unavailable Allergies Allergen (clinical [...] Orally every 12 hrs/prn Active Vitamin D3 90717 UNIT 1 capsule Orally O nce a [...] Status Risk Notes Problem Colon cancer screening (653218251) Colon cancer screening (Z12.11) Active confirmed Problem group home current use of non-steroidal anti-inflammat ory drug (8472004347946 03) group home (current) use of non-steroidal anti-inflammat ories (NSAID) (Z79.1) Active confirmed Problem Long-term current use of insulin (337403569) termite helper (current) use of insulin (Z79.4) Active confirmed Plan Of Treatment Future Test Test Name Order Date COLONOSCOPY 06/09/2018 Insurance Providers Payer Name Payer Address Payer Phone Subscriber Number Group Number Insured Name Patient Relationship to Insured Coverage Start Date Coverage End Date [facility] [address] [place] [phone] [id number] ALFONSO CUNHA Self - patient is the insured Medical (General) History Medical History History ICD Code hypertension diabetes mellitus elevated cholesterol hypothyroidism arthritis Surgical History Surgery Date(Month/Year) hysterectomy back surgery cholecystectomy cataract-lens implants both eyes
--- OUTSIDE RECORDS SUMMARY | 2025-10-04 16:34 | XMS_ITS | Encounter Summary ---
Author Organization [facility] Address [address] [place] [address] Care Team Providers Care Ship Unloader Name Role Phone Bruce Welch MD Primary Care Provider [phone] Encounter Details Date Type Department Care Team (Late st Contact Info) Description 07/05/2025 Lab Requisition [facility] - Main Lab [address] [facility] [place] [address] Bruce Welch MD [address] [place], [place] [id number] Essential (primary) hypertension; Hypomagnesemia Social History Tobacco [...] mg/dL LAB CHEMISTRY METHOD 07/05/2025 11:16 AM [facility] Blood Venous blood specimen / Unknown Venipuncture / Unknown 07/05/2025 6:12 AM EDT 07/05/2025 9:34 AM EDT us Bruce Welch MD LAB BLOOD ORDERABLES Final Resul t [facility] [address] [place] [address], * Basic metabolic panel (07/05/2025 6:12 AM EDT) Sodium 140 133 - 145 mmol/L LAB CHEMISTRY METHOD 07/05/2025 11:16 AM [facility] Potassium 4.6 3.5 - 5.5 mmol/L LAB CHEMISTRY METHOD 07/05/2025 11:16 AM [facility] Chloride 103 96 - 110 mmol/L LAB CHEMISTRY METHOD 07/05/2025 11:16 AM [facility] CO2 32 21 - 32 mmol/L LAB CHEMISTRY METHOD 07/05/2025 11:16 AM [facility] Anion Gap 5 3 - 11 LAB CHEMISTRY METHOD 07/05/2025 11:16 AM [facility] Glucose 91 70 - 100 mg/dL LAB CHEMISTRY METHOD 07/05/2025 11:16 AM [facility] BUN 16 5 - 25 mg/dL LAB CHEMISTRY METHOD 07/05/2025 11:16 AM [facility] Creatinine 0.70 0.50 - 1.10 mg/dL LAB CHEMISTRY METHOD 07/05/2025 11:16 AM [facility] eGFR 88 >=60 mL/min/1. 73m2 LAB CHEMISTRY METHOD 07/05/2025 11:16 AM [facility] Comment:Calculation based on the Chronic Kidney Disease Epidemiology Collaboration (CKD-EPI) equation refit without adjustment for race. BUN/Creatinine Ratio 22.9 LAB CHEMISTRY METHOD 07/05/2025 11:16 AM EDT [facility] Calcium 8.9 8.5 - 10.5 mg/dL LAB CHEMISTRY METHOD 07/05/2025 11:16 AM EDT [facility] Blood Venous blood specimen / Unknown Venipuncture / Unknown 07/05/2025 6:12 AM EDT 07/05/2025 9:34 AM EDT us Bruce Welch MD LAB BLOOD ORDERABLES Final Resul t [facility] [address] [place] [address], [place] [phone] * (ABNORMAL) Complete blood count (07/05/2025 6:12 AM EDT) WBC 9.1 4.8 - 10.8 K/mcL LAB HEMETOLOGY METHOD 07/05/2025 10:26 AM [facility] RBC 4.30 3.80 - 4.80 M/mcL LAB HEMETOLOGY METHOD 07/05/2025 10:26 AM [facility] Hemoglobin 10.7(L) 11.5 - 16.0 g/dL LAB HEMETOLOGY METHOD 07/05/2025 10:26 AM [facility] Hematocrit 35.4 35.0 - 47.0 % LAB HEMETOLOGY METHOD 07/05/2025 10:26 AM [facility] MCV 81.6 79.0 - 98.0 FL LAB HEMETOLOGY METHOD 07/05/2025 10:26 AM [facility] MCH 24.7(L) 27.0 - 32.0 pcg LAB HEMETOLOGY METHOD 07/05/2025 10:26 AM [facility] MCHC 30.2(L) 32.0 - 37.0 g/dL LAB HEMETOLOGY METHOD 07/05/2025 10:26 AM EDT [facility] RDW 15.9(H) 11.0 - 15.0 % LAB HEMETOLOGY METHOD 07/05/2025 10:26 AM EDT [facility] Platelets 387 130 - 400 K/mcL LAB HEMETOLOGY METHOD 07/05/2025 10:26 AM EDT [facility] MPV 10.6 7.0 - 11.0 FL LAB HEMETOLOGY METHOD 07/05/2025 10:26 AM EDT [facility] NRBC 0.0 <1.0 % LAB HEMETOLOGY METHOD 07/05/2025 10:26 AM EDT [facility] NRBC Absolute 0.00 <0.10 K/mcL LAB HEMETOLOGY METHOD 07/05/2025 10:26 AM EDT [facility] Blood Venous blood specimen / Unknown Venipuncture / Unknown 07/05/2025 6:12 AM EDT 07/05/2025 9:34 AM EDT Bruce Welch MD LAB BLOOD ORDERABLES Final Resul t [facility] [address] [place] [address], documented in this encounter Visit Diagnoses Diagnosis Essential (primary) hypertension Unspecified essential hypertension Hypomagnesemia Disorders of magnesium metabolism documented in this encounter Care Teams Ship Unloader Relationship Specialty Start Date End Date Bruce Welch MD [address] [place], [place] [id number] [place] [address] PCP - General Geriatric Medicine 06/19/25 documented as of this encounter
--- OUTSIDE RECORDS SUMMARY | 2025-10-04 16:34 | XMS_ITS | Encounter Summary ---
Author Organization [facility] Address [address] [place] [id number] Care Team Providers Care Apron Worker Name Role Phone Bruce Welch MD Primary Care Provider [phone] Encounter Details Date Type Department Care Team (Late st Contact Info) Description 07/14/2025 Lab Requisition [facility] - Main Lab [address] [facility] [employer] [place] [address] Bruce Welch MD [address] [facility] [address] [place], [place] [id number] Type 2 diabetes mellitus without complications (CMS/HCC [...] unspecified documented in this encounter Care Teams Apron Worker Relationship Specialty Start Date End Date Bruce eWlch MD [address] [facility] [address] [place], [place] [id number] PCP - General Geriatric Medicine 06/19/25 documented as of this encounter
== END 2025-10-04 14:36 | disposition home or self-care (01) ==
PROVIDERS: PCP Internal Medicine; Visit Provider Nurse Practitioner
DX: G31.84 Mild cognitive impairment of uncertain or unknown etiology (principal)
CPT/HCPCS: 99214

== ENCOUNTER → 2025-10-04 13:38 | Outpatient (BNVA) | payer MEDICARE, SELFPAY | PROVIDERS: PCP Internal Medicine; Visit Provider Nurse Practitioner | DX: G31.84 Mild cognitive impairment of uncertain or unknown etiology (principal); Z86.73 Personal history of transient ischemic attack (TIA), and cerebral infarction without residual deficits; Z87.891 Personal history of nicotine dependence | CPT/HCPCS: 99212 ==

== ENCOUNTER 2025-10-07 09:49 | Outpatient (REF) | payer MEDICARE, SELFPAY ==
--- OUTSIDE RECORDS SUMMARY | 2025-10-07 10:24 | XMS_ITS | Clinical Summary ---
Author Organization [facility] Address [address] [place] [address] Care Team Providers Care Electronics Technology Department Chair Name Role Phone Allen Cortés MD Primary Care Provider [phone] Allergies No known active allergies Medications ezetimibe [...] Years Used Date Smoking Tobacco: Never Assessed [facility] Utilities Answer Date Recorded In the [...] place to sleep or slept in a mcc (including now)? No 06/27/2024 Comments Unknown Sex [...] A1C 7.0(H) <5.7 % 06/27/2024 9:07 AM [facility] Comment: A1c% Interpretation 5.7 - 6.0 Increase risk of diabetes 6.1 - 6.4 Higher risk of diabetes > or = 6.5 Consistent with diabetes Diabetes Care, 33(Supp 1):S1-S61, 2010 Estimated Average Glucose 154 mg/dL 06/27/2024 9:07 AM [facility] Blood Blood specimen / Unknown 06/27/2024 8:21 AM EDT 06/27/2024 8:32 AM EDT Paul Ospina MD LAB [place]OD [place] [address], [place] [address] * (ABNORMAL) Lipid Panel (06/27/2024 8:21 AM EDT) Cholesterol, Total 141 <200 mg/dL 2023 9:18 AM [facility] Triglycerides 169(H) <150 mg/dL 06/27/2024 9:18 AM [facility] Cholesterol, HDL 58 >39 mg/dL 06/27/20 9:18 AM [facility] Estimated LDL 49 <130 mg/dL 06/27/2024 9:18 AM [facility] Comment: NCEP Guidelines: < 100 mg/dL Optimal 100 - 129 mg/dL Near Optimal/Above Optimal 130 - 159 mg/dL Borderline High 160 - 189 mg/dL High >/= 190 mg/dL Very High Cholesterol/HDL Ratio 2.4 0.0 - 5.0 Ratio 06/27/2024 9:18 AM [facility] Comment: Relative Risk Ratio - Male Ratio - Female 0.5 3.4 3.3 1.0 5.0 4.4 2.0 9.6 7.1 3.0 23.4 11.0 Blood (Plasma/Serum) 06/27/2024 8:21 AM EDT 06/27/2024 8:32 AM EDT Paul Ospina MD LAB BLOOD ORDERABLES Final Result [address] [address], [address] [address] from Last 3 Months or Most Recently Relevant to Health Maintenance Insurance MEDICARE PART A & B [facility] MEDICARE Advance Directives * DNR (Latest Code Status on File) Date Activated Date Inactivated Comments 06/27/2024 4:12 PM Question Answer Comments Decision thoroughly discussed with: Gail ent arrived with valid State of [place] DNR Transfer form * Full Code Date Activated Date Inactivated Comments 06/26/2024 8:41 PM 06/27/2024 4:12 PM Care Teams Electronics Technology Department Chair Relationship Specialty Start Date End Date Allen Cortés MD [address] [place] [id number] PCP - General 06/26/24
--- OUTSIDE RECORDS SUMMARY | 2025-10-07 10:24 | XMS_ITS | Clinical Summary ---
Author Organization [facility] Address [address] [address] Phone Care Team Providers Care Oceanographic Meteorologist Name Role Phone Trevor Rios MD Primary [...] Advance Directives For more information, please contact: [phone] (9AM - 5PM [place], Thursday-Thursday) Documents on File Type Date Recorded Patient Driller And Broacher Expl anation MOLST 08/05/2024 Care Teams Oceanographic Meteorologist Relationship Specialty Start Date End Date Trevor Rios MD [address] [place] [address] PCP - General Internal Medicine 09/02/24 Additional Source Comments The information contained in this document represents components of the legal health record. It is not the complete legal health record.[facility]
[2025-10-07 11:38] LABS: MANUAL DIFF FLAG NO
[2025-10-07 11:54] LABS: Hematocrit 38.7 % (37.0-47.0); Hemoglobin 11.8 g/dl (12.0-16.0); Imm Gran Abs Auto 0.02 X10*3/uL (0.00-0.03); Imm Gran Pct Auto 0.2 % (0.0-0.4); Lymphocytes Absolute Auto 2.2 X10*3/uL (1.2-4.9); Mean Corpuscular HGB Conc 30.5 g/dl (31.0-35.0); Mean Corpuscular Hemoglobin 24.9 pg (27.0-33.0); Mean Corpuscular Volume 81.8 fL (80.0-98.0); NRBC Abs Auto 0.000 X10*3/uL (0.0-0.012); NRBC Pct Auto 0.0 /100WBC (0.0-0.2); Platelet Count 314 X10*3/uL (160-400); Red Blood Count 4.73 X10*6/uL (4.20-5.50); White Blood Count 8.2 X10*3/uL (4.8-10.8)
[2025-10-07 12:25] LABS: Iron 51 mcg/dL (30-160); Percent Iron Saturation 16 % (15-50); Total Iron Binding Capacity 313 mcg/dL (228-428); Unsaturated Iron Binding 262 ug/dL
[2025-10-07 12:27] LABS: Free T4 (Free Thyroxine) 1.26 ng/dL (0.71-1.85)
[2025-10-07 12:31] LABS: Thyroid Stimulating Hormone 0.06 uIU/mL (0.32-4.0)
[2025-10-07 12:40] LABS: Folate 12.8 ng/mL (> or = 4.0); Vitamin B12 > 2000 pg/mL (200-900)
[2025-10-07 15:18] LABS: Alanine Aminotransferase 17 U/L (0-31); Albumin Level 4.2 g/dL (3.5-5.0); Alkaline Phosphatase 115 U/L (39-117); Anion Gap 15 (12-20); Aspartate Amino Transferase 28 U/L (5-31); Blood Urea Nitrogen 17 mg/dL (9-16); Calcium 10.0 mg/dL (8.4-10.2); Carbon Dioxide 29 mmol/L (22-29); Chloride 104 mmol/L (96-108); Cholesterol 124 mg/dL (<200); Estimated Glomerular Filt Rate > 60; HDL Cholesterol 55 mg/dL (>40); Magnesium 1.2 mg/dL (1.6-2.6); Potassium 4.4 mmol/L (3.3-5.1); Sodium 144 mmol/L (135-145); Total Protein 7.1 g/dL (6.5-8.0); Triglycerides 95 mg/dL (<150)
== END 2025-10-07 09:50 | disposition home or self-care (01) ==
LOC: HO.HMGCLDS 09:49
PROVIDERS: Nurse Practitioner; Absent Provider Nurse Practitioner Family; Visit Provider Internal Medicine
DX: E11.9 Type 2 diabetes mellitus without complications (principal); D50.0 Iron deficiency anemia secondary to blood loss (chronic); G31.84 Mild cognitive impairment of uncertain or unknown etiology; E78.00 Pure hypercholesterolemia, unspecified; E03.9 Hypothyroidism, unspecified; E83.42 Hypomagnesemia
CPT/HCPCS: 36415; 80053; 80061; 82306; 82607; 82746; 83036; 83540; 83735; 84439; 84443; 85025

== ENCOUNTER 2025-10-09 10:56 | Day surgery (SDC) | payer MEDICARE, SELFPAY ==
--- OUTSIDE RECORDS SUMMARY | 2024-07-13 10:30 | XMS_ITS ---
Author Organization [facility] Address [address] [place] [phone] Care Team Providers Care Welding Operator Name Role Phone Milana NATARAJAN, Allen Primary Care Provider Desire Arias [phone] Encounters Encounter Location Date Provider Diagnosis [address] [address] 07/13/2024 Desire Ashford Plan Of Treatment No Information Progress Notes * Naty CERVANTES LDOB: [birth year] (79 yo F)Acc No.[id number]:07/13/2024 Progress Note Patient: Naty WOLF Provider: Caitlin Ashford DPM :1945 A ge:78 Y S ex:Female Date:07/13/2024 Address:[address] [place], [place] [id number] Pcp:Allen Cortés MD Subjective: * Chief Complaints: [...] 0 07/13/2024 Generated for Ebonyi ng/Falesterg/eTransmitting on: 04:56 PM EDT
--- OUTSIDE RECORDS SUMMARY | 2025-09-12 16:55 | XMS_ITS | Patient Health Record ---
Author Organization [facility] Address [address] [place] [address] Care Team Providers Care Hotel Superintendent Name Role Phone Milana NATARAJAN, Allen Primary Care Provider Desire Arias Unavailable [phone] Allergies No Known Allergies Reason For Referral [...] Problem Acquired hammer toe of right foot (8019882900736524 ) Other hammer toe(s) (acquired), right foot (M20.41) Active confirmed Problem Acquired hammer toe of left foot (6674082392800274 ) Other hammer toe(s) (acquired), left foot (M20.42) Active confirmed Problem Acquired hammer toe of left foot ([id number] ) Hammer toe of left foot (M20.42) Active confirmed Problem Polyneuropathy due to type 2 diabetes mellitus (296829512) 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.42) Active confirmed Problem Localized, primary osteoarthritis of the ankle and/or foot (357572129) Osteoarthritis of left ankle and foot (M19.072) Active confirmed Plan Of Treatment Pending Test Test Name Order Date [id number] NAIL, 6 OR MORE 01/23/2015 [id number] Plate 01/23/2015 [id number] Plate Each Additional 01/2015 [id number] SKIN LESIONS, OVER 4 01/24/20 15 Insurance Providers Payer Name Payer Address Payer Phone Subscriber Number Group Number Insured Name Patient Relationship to Insured Coverage Start Date Coverage End Date [employer] [place] [employer] Advantage [facility] [address] [place] [address] [id number] Naty Cervantes Self - patient is the insured Medical (General) History Medical History History ICD Code Chicken pox Measles Mumps Hypertension Thyroid disorder Diabetic Arthritis Back,Hip,and Knee pain CAD (Cholesterol) Gall bladder problems Vascular phlebitis (clots) Stroke Cataracts Hearing loss Surgical History Surgery Date(Month/Year) cholecystectomy hysterectomy 1994 back surgery 1991 gall bladder 1970 cataract surgery Hospitalization History Reason Date(Month/Year) [facility] [place]- [place]- rehab
--- OUTSIDE RECORDS SUMMARY | 2025-09-12 16:55 | XMS_ITS | Encounter Summary ---
Author Organization [facility] Address [address] [place] [address] Care Team Providers Care Brush Machine Setter Name Role Phone Bruce Welch MD Primary Care Provider [phone] Encounter Details Date Type Department Care Team (Late st Contact Info) Description 06/30/2025 Lab Requisition [facility] - Main Lab [address] [facility] [employer] [place] [address] Bruce Welch MD [address] [place], [place] [id number] Type 2 diabetes mellitus without complications (CMS/HCC [...] Final Resul t [facility] [address] [place] [address], * (ABNORMAL) Complete blood count (07/03/2025 8:21 AM EDT) [facility] WBC 10.6 4.8 - 10.8 K/mcL LAB HEMETOLOGY METHOD 07/03/2025 1:24 PM EDT [facility] RBC 4.00 3.80 - 4.80 M/mcL LAB HEMETOLOGY METHOD 07/03/2025 1:24 PM EDT [facility] Hemoglobin 9.9(L) 11.5 - 16.0 g/dL LAB HEMETOLOGY METHOD [facility] Hematocrit 33.4(L) 35.0 - 47.0 % LAB HEMETOLOGY METHOD 07/03/2025 1:24 PM [facility] MCV 82.9 79.0 - 98.0 FL LAB HEMETOLOGY METHOD 07/03/2025 1[facility] MCH 24.6(L) 27.0 - 32.0 pcg LAB HEMETOLOGY METHOD 07/03/2025 1:24 PM [facility] MCHC 29.6(L) 32.0 - 37.0 g/dL LAB HEMETOLOGY METHOD 07/03/2025 1:24 PM [facility] RDW 16.0(H) 11.0 - 15.0 % LAB HEMETOLOGY METHOD 07/03/2025 1:24 PM T [facility] Platelets 419(H) 130 - 400 K/mcL LAB HEMETOLOGY METHOD 07/03/2025 1:24 PM [facility] MPV 10.6 7.0 - 11.0 FL LAB HEMETOLOGY METHOD 07/03/2025 1:[facility] NRBC 0.0 <1.0 % LAB HEMETOLOGY METHOD 07/03/2025 1:24 PM EDT [facility] NRBC Absolute 0.00 <0.10 K/mcL LAB HEMETOLOGY METHOD 07/03/2025 1:24 PM EDT [facility] Blood Venous blood specimen / Unknown Venipuncture / Unknown 07/03/2025 8:21 AM EDT 07/03/2025 11:55 AM EDT Bruce Welch MD LAB BLOOD ORDERABLES Final Resul t [facility] [address] [place] [address], documented in this encounter Visit Diagnoses Diagnosis Type 2 diabetes mellitus without complications (CMS/HCC V24, CMS/HCC V28) Anemia, unspecified documented in this encounter Care Teams Brush Machine Setter Relationship Specialty Start Date End Date Bruce Welch MD [address] [place] [address] [address] [place] [address] PCP - General Geriatric Medicine 06/19/25 documented as of this encounter
--- OUTSIDE RECORDS SUMMARY | 2025-09-12 16:55 | XMS_ITS | Clinical Summary ---
Author Organization [facility] Address [address] [place] [address] Care Team Providers Care Stenocaptioner Name Role Phone Allen Cortés MD Primary Care Provider [phone] Allergies No known active allergies Medications ezetimibe [...] place to sleep or slept in a alf (including now)? No 06/27/2024 Comments Unknown Sex [...] A1C 7.0(H) <5.7 % 06/27/2024 9:07 AM [facility] Comment: A1c% Interpretation 5.7 - 6.0 [...] Ospina MD LAB BLOOD [place] [address], [place] [address] * (ABNORMAL) Lipid Panel (06/27/2024 8:21 AM [...] [facility] Comment: NCEP Guidelines: < 100 mg/dL Optimal 100 - 129 mg/dL Near Optimal/Above Optimal 130 - 159 mg/dL Borderline High 160 - 189 mg/dL High >/= 190 mg/dL Very High Cholesterol/HDL Ratio 2.4 0.0 - 5.0 Ratio 06/27/2024 9:18 AM [facility] Comment: Relative Risk Ratio - Male Ratio - Female 0.5 3.4 3.3 1.0 5.0 4.4 2.0 9.6 7.1 3.0 23.4 11.0 Blood (Plasma/Serum) 06/27/2024 8:21 AM EDT 06/27/2024 8:32 AM EDT Paul Ospina MD LAB BLOOD ORDERABLES Final Result [address] [address], [address] [address] from Last 3 Months or Most Recently Relevant to Health Maintenance Insurance MEDICARE PART A & B [facility] MEDICARE Advance Directives * DNR (Latest Code Status on File) Date Activated Date Inactivated Comments 06/27/2024 4:12 PM Question Answer Comments Decision thoroughly discussed with: Gail ent arrived with valid State [place] DNR Transfer form * Full Code Date Activated Date Inactivated Comments 06/26/2024 8:41 PM 06/27/2024 4:12 PM Care Teams Stenocaptioner Relationship Specialty Start Date End Date Allen Cortés MD [address] [place] [id number] PCP - General 06/26/24
--- OUTSIDE RECORDS SUMMARY | 2025-09-12 16:56 | XMS_ITS | Encounter Summary ---
Author Organization [facility] Address [address] [place] [address] Care Team Providers Care Door To Door Salesperson Name Role Phone Bruce Welch MD Primary Care Provider Encounter Details Date Type Department Care Team (Late st Contact Info) Description 06/19/[address] [facility] - Main Lab [address] [facility] [place] [address] Bruce Welch MD [address] [place], [place] [id number] Anemia, unspecified; Type 2 diabetes mellitus without [...] unspecified Type 2 diabetes mellitus without complications ([facility] V24, [facility] V28) Hyperlipidemia, unspecified Hypothyroidism, unspecified Magnesium deficiency Vitamin B12 deficiency anemia, unspecified Vitamin D deficiency, unspecified LIPID PANEL WITH REFLEX TO DIRECT LDL Routine 06/19/2025 5:26 AM EDT Anemia, unspecified Type 2 diabetes mellitus without complications ([facility] V24, [facility] V28) Hyperlipidemia, unspecified Hypothyroidism, unspecified Magnesium deficiency Vitamin B12 deficiency anemia, unspecified Vitamin D deficiency, unspecified VITAMIN D 25 HYDROXY Routine 06/19/2025 5:26 AM EDT Anemia, unspecified Type 2 diabetes mellitus without complications ([facility] V24, [facility] V28) Hyperlipidemia, unspecified Hypothyroidism, unspecified Magnesium deficiency Vitamin B12 deficiency anemia, unspecified Vitamin D deficiency, unspecified COMPLETE BLOOD COUNT Routine 06/19/2025 5:26 AM EDT Anemia, unspecified Type 2 diabetes mellitus without complications ([facility] V24, [facility] V28) Hyperlipidemia, unspecified Hypothyroidism, unspecified Magnesium deficiency Vitamin B12 deficiency anemia, unspecified Vitamin D deficiency, unspecified TRIIODOTHYRONINE FREE Routine 06/19/2025 5:26 AM EDT Anemia, unspecified Type 2 diabetes mellitus without complications ([facility] V24, [facility] V28) Hyperlipidemia, unspecified Hypothyroidism, unspecified Magnesium deficiency Vitamin B12 deficiency anemia, unspecified Vitamin D deficiency, unspecified MAGNESIUM Routine 06/19/2025 5:26 AM EDT Anemia, unspecified Type 2 diabetes mellitus without complications ([facility] V24, [facility] V28) Hyperlipidemia, unspecified Hypothyroidism, unspecified Magnesium deficiency Vitamin B12 deficiency anemia, unspecified Vitamin D deficiency, unspecified COMPREHENSIVE METABOLIC PANEL Routine 06/19/2025 5:26 AM EDT Anemia, unspecified Type 2 diabetes mellitus without complications ([facility] V24, [facility] V28) Hyperlipidemia, unspecified Hypothyroidism, unspecified Magnesium deficiency Vitamin B12 deficiency anemia, unspecified Vitamin D deficiency, unspecified documented in this encounter Results * (ABNORMAL) Triiodothyronine free (06/19/2025 5:26 AM EDT) T3, Free 193(L) 230 - 420 pcg/dL LAB CHEMISTRY METHOD 06/19/2025 7:36 PM EDT [facility] Blood Venous blood specimen / Unknown Venipuncture / Unknown 06/19/2025 5:26 AM EDT 06/19/2025 10:47 AM EDT us Bruce Welch MD LAB BLOOD ORDERABLES Final Resul t Performing Organization Address City/[facility]/ZIP Co de Phone Number [facility] [address] [place] [address], [place] [phone] * Free thyroxine with reflex to free triiodothyronine (06/19/2025 5:26 AM EDT) Free T4 1.40 0.70 - 1.80 ng/dL LAB CHEMISTRY METHOD 06/19/2025 6:04 PM EDT [facility] Blood Venous blood specimen / Unknown Venipuncture / Unknown 06/19/2025 5:26 AM EDT 06/19/2025 10:47 AM EDT us Bruce Welch MD LAB BLOOD ORDERABLES Final Resul t Performing Organization Address City/[facility]/ZIP Co de Phone Number [facility] [address] [place] [address], [place] [phone] * Vitamin D 25 hydroxy (06/19/2025 5:26 AM EDT) Vit D, 25-Hydroxy 72.3 30.0 - 80.0 ng/mL LAB CHEMISTRY METHOD 06/19/2025 1:24 PM EDT [facility] Blood Venous blood specimen / Unknown Venipuncture / Unknown 06/19/2025 5:26 AM EDT 06/19/2025 10:47 AM EDT us Bruce Welch MD LAB BLOOD ORDERABLES Final Resul t Performing Organization Address City/[facility] Co de Phone Number [facility] [address] [place] [address], [place] [phone] * Vitamin B12 and folate (06/19/2025 5:26 AM EDT) Vitamin B-12 774 250 - 900 pcg/mL LAB CHEMISTRY METHOD 06/19/2025 11:51 AM EDT [facility] Folate 6.4 2.8 - 17.0 ng/ml LAB CHEMISTRY METHOD 06/19/2025 11:51 AM EDT [facility] Blood Venous blood specimen / Unknown Venipuncture / Unknown 06/19/2025 5:26 AM EDT 06/19/2025 10:47 AM EDT us Bruce Welch MD LAB BLOOD ORDERABLES Final Resul t Performing Organization Address [facility]/ZIP Co de Phone Number [facility] [address] [place] [address], [place] [phone] * (ABNORMAL) Magnesium (06/19/2025 5:26 AM EDT) Magnesium 1.7(L) 1.9 - 2.6 mg/dL LAB CHEMISTRY METHOD 06/19/2025 11:29 AM EDT [facility] Blood Venous blood specimen / Unknown Venipuncture / Unknown 06/19/2025 5:26 AM EDT 06/19/2025 10:47 AM EDT us Bruce Welch MD LAB BLOOD ORDERABLES Final Resul t [facility] [address] [place] [address], [place] [phone] * (ABNORMAL) Thyroid stimulating hormone with reflex to free t4 and free t3 (06/19/2025 5:26 AM EDT) [facility] TSH 0.05(L) 0.40 - 4.00 mcIU/mL LAB CHEMISTRY METHOD 06/19/2025 5:27 PM EDT [facility] Blood Venous blood specimen / Unknown Venipuncture / Unknown 06/19/2025 5:26 AM EDT 06/19/2025 10:47 AM EDT us Bruce Welch MD LAB BLOOD ORDERABLES Final Resul t [facility] [address] [place] [address], [place] [phone] * Lipid panel with reflex to direct LDL (06/19/2025 5:26 AM EDT) [facility] Cholesterol 116 0 - 200 mg/dL LAB CHEMISTRY METHOD 06/19/2025 11:51 AM EDT [facility] Triglycerides 72 0 - 150 mg/dL LAB CHEMISTRY METHOD 06/19/2025 11:51 AM EDT [facility] HDL 58 >=40 mg/dL LAB CHEMISTRY METHOD 06/19/2025 11:51 AM EDT [facility] LDL Calculated 44 0 - 100 mg/dL LAB CHEMISTRY METHOD 06/19/2025 11:51 AM EDT [facility] VLDL Cholesterol Apolinar 14.4 mg/dL LAB CHEMISTRY METHOD 06/19/2025 11:51 AM EDT [facility] Non HDL Chol. (LDL+VLDL) 58 <145 mg/dL LAB CHEMISTRY METHOD 06/19/2025 11:51 AM [facility] Chol/HDL Ratio 2.0 0.0 - 4.4 LAB CHEMISTRY METHOD 06/19/2025 11:51 AM [facility] Blood Venous blood specimen / Unknown Venipuncture / Unknown 06/19/2025 5:26 AM EDT 06/19/2025 10:47 AM EDT us Bruce Welch MD LAB BLOOD ORDERABLES Final Resul t [facility] [address] [place] [address], * (ABNORMAL) Comprehensive metabolic panel (06/19/2025 5:26 AM EDT) Sodium 139 133 - 145 mmol/L LAB CHEMISTRY METHOD 06/19/2025 11:51 AM [facility] Potassium 3.9 3.5 - 5.5 mmol/L LAB CHEMISTRY METHOD 06/19/2025 11:51 AM [facility] Chloride 104 96 - 110 mmol/L LAB CHEMISTRY METHOD 06/19/2025 11:51 AM [facility] CO2 27 21 - [...] [facility] Total Bilirubin 0.5 0.0 - 1.4 mg/dL LAB CHEMISTRY METHOD 06/19/2025 11:51 AM [facility] Blood Venous blood specimen / Unknown Venipuncture / Unknown 06/19/2025 5:26 AM EDT 06/19/2025 10:47 AM EDT us Bruce eWlch MD LAB BLOOD ORDERABLES Final Resul t [facility] [address] [place] [address], * (ABNORMAL) Complete blood count (06/19/2025 5:26 AM EDT) [facility] WBC 8.4 4.8 - 10.8 K/mcL LAB HEMETOLOGY METHOD 06/19/2025 11:23 AM [facility] RBC 4.40 3.80 - 4.80 M/mcL LAB HEMETOLOGY METHOD 06/19/2025 11:23 AM [facility] Hemoglobin 11.0(L) 11.5 - 16.0 g/dL LAB HEMETOLOGY METHOD 06/19/2025 11:23 AM [facility] Hematocrit 36.2 35.0 - 47.0 % LAB HEMETOLOGY METHOD 06/19/2025 11:23 AM [facility] MCV 83.0 79.0 - 98.0 FL LAB HEMETOLOGY METHOD 06/19/2025 11:23 AM [facility] MCH 25.2(L) 27.0 - 32.0 pcg LAB HEMETOLOGY METHOD 06/19/2025 11:23 AM [facility] MCHC 30.4(L) 32.0 - 37.0 g/dL LAB HEMETOLOGY METHOD 06/19/2025 11:23 AM [facility] RDW 17.2(H) 11.0 - 15.0 % LAB HEMETOLOGY METHOD 06/19/2025 11:23 AM [facility] Platelets 254 130 - 400 K/mcL LAB HEMETOLOGY METHOD 06/19/2025 11:23 AM [facility] MPV 11.4(H) 7.0 - 11.0 FL LAB HEMETOLOGY METHOD 06/19/2025 11:23 AM [facility] NRBC 0.0 <1.0 % LAB HEMETOLOGY METHOD 06/19/2025 11:23 AM [facility] NRBC Absolute 0.00 <0.10 K/[facility] LAB HEMETOLOGY METHOD 06/19/2025 11:23 AM EDT [facility] Blood Venous blood specimen / Unknown Venipuncture / Unknown 06/19/2025 5:26 AM EDT 06/19/2025 10:47 AM EDT Bruce Welch MD LAB BLOOD ORDERABLES Final Resul t [facility] [address] [place] [address], documented in this encounter Visit Diagnoses Diagnosis Anemia, unspecified Type 2 diabetes mellitus without complications (CMS/HCC V24, CMS/HCC V28) Hyperlipidemia, unspecified Hypothyroidism, unspecified Magnesium deficiency Disorders of magnesium metabolism Vitamin B12 deficiency anemia, unspecified Vitamin D deficiency, unspecified documented in this encounter Care Teams Door To Door Salesperson Relationship Specialty Start Date End Date Bruce Welch MD [address] [place] [address] [address] [place] [address] PCP - General Geriatric Medicine 06/19/25 documented as of this encounter
--- OUTSIDE RECORDS SUMMARY | 2025-09-12 16:56 | XMS_ITS | Clinical Summary ---
Author Organization [address] Address [address] [place] [phone] Phone Care Team Providers Care Boil Off Worker Name Role Phone Bruce Welch MD Primary Care Provider [phone] Encounters Date Type Department Care Team Description 07/14/2025 Lab Requisition [facility] - Main Lab [address] [place] [phone] Bruce Welch MD Type 2 diabetes mellitus without complications ([facility] V24, [facility] V28); Anemia, unspecified 07/08/2025 Lab Requisition [facility] Lab [address] [place] [phone] Bruce Welch MD Type 2 diabetes mellitus without complications ([facility] V24, [facility] V28); Anemia, unspecified 07/05/2025 Lab Requisition [facility] Lab [address] [facility] [place] [phone] Bruce Welch MD Essential (primary) hypertension; Hypomagnesemia 06/30/2025 Lab Requisition [facility] Main Lab [address] [place] [phone] Bruce Welch MD Type 2 diabetes mellitus without complications (CMS/HCC V24, [facility] V28); Anemia, unspecified 06/24/2025 Lab Requisition [facility] Main Lab [address] [place] [phone] Bruce Welch MD Type 2 diabetes mellitus without complications (CMS/HCC V24, [facility] V28); Anemia, unspecified 06/19/2025 Lab Requisition [facility] - Main Lab [address] [facility] [place] [phone] Bruce Welch MD Anemia, unspecified; Type 2 diabetes mellitus without complications ([facility] V24, [facility] V28); Hyperlipidemia, unspecified; Hypothyroidism, unspecified; Magnesium deficiency; [...] 2 diabetes mellitus without complications (CMS/HCC V24, [facility] V28) Anemia, unspecified COMPLETE BLOOD COUNT Routine 07/03/2025 8:21 AM EDT Type 2 diabetes mellitus without complications ([facility] V24, [facility] V28) Anemia, unspecified BASIC METABOLIC PANEL Routine 06/26/2025 10:03 AM EDT Type 2 diabetes mellitus without complications ([facility] V24, [facility] V28) Anemia, unspecified COMPLETE BLOOD COUNT Routine 06/26/2025 10:03 AM EDT Type 2 diabetes mellitus without complications ([facility] V24, [facility] V28) Anemia, unspecified TRIIODOTHYRONINE FREE Routine 06/19/2025 5:26 AM EDT Anemia, unspecified Type 2 diabetes mellitus without complications ([facility] V24, [facility] V28) Hyperlipidemia, unspecified Hypothyroidism, unspecified Magnesium deficiency Vitamin B12 deficiency anemia, unspecified Vitamin D deficiency, unspecified FREE THYROXINE WITH REFLEX TO FREE TRIIODOTHYRONINE Routine 06/19/2025 5:26 AM EDT Anemia, unspecified Type 2 diabetes mellitus without complications ([facility] V24, [facility] V28) Hyperlipidemia, unspecified Hypothyroidism, unspecified Magnesium deficiency Vitamin B12 deficiency anemia, unspecified Vitamin D deficiency, unspecified VITAMIN D 25 HYDROXY Routine 06/19/2025 5:26 AM EDT Anemia, unspecified Type 2 diabetes mellitus without complications ([facility] V24, [facility] V28) Hyperlipidemia, unspecified Hypothyroidism, unspecified Magnesium deficiency Vitamin B12 deficiency anemia, unspecified Vitamin D deficiency, unspecified VITAMIN B12 AND FOLATE Routine 5:26 AM EDT Anemia, unspecified Type 2 diabetes mellitus without complications ([facility] V24, [facility] V28) Hyperlipidemia, unspecified Hypothyroidism, unspecified Magnesium deficiency Vitamin B12 deficiency anemia, unspecified Vitamin D deficiency, unspecified MAGNESIUM Routine 06/19/2025 5:26 AM EDT Anemia, unspecified Type 2 diabetes mellitus without complications ([facility]/HCC V24, [facility] V28) Hyperlipidemia, unspecified Hypothyroidism, unspecified Magnesium deficiency Vitamin B12 deficiency anemia, unspecified Vitamin D deficiency, unspecified THYROID STIMULATING HORMONE WITH REFLEX TO FREE T4 AND FREE T3 Routine 06/19/2025 5:26 AM EDT Anemia, unspecified Type 2 diabetes mellitus without complications ([facility] V24, [facility] V28) Hyperlipidemia, unspecified Hypothyroidism, unspecified Magnesium deficiency Vitamin B12 deficiency anemia, unspecified Vitamin D deficiency, unspecified LIPID PANEL WITH REFLEX TO DIRECT LDL Routine 06/19/2025 5:26 AM EDT Anemia, unspecified Type 2 diabetes mellitus without complications ([facility] V24, [facility] V28) Hyperlipidemia, unspecified Hypothyroidism, unspecified Magnesium deficiency Vitamin B12 deficiency anemia, unspecified Vitamin D deficiency, unspecified COMPREHENSIVE METABOLIC PANEL Routine 06/19/2025 5:26 AM EDT Anemia, unspecified Type 2 diabetes mellitus without complications ([facility] V24, [facility] V28) Hyperlipidemia, unspecified Hypothyroidism, unspecified Magnesium deficiency Vitamin B12 deficiency anemia, unspecified Vitamin D deficiency, unspecified COMPLETE BLOOD COUNT Routine 06/19/2025 5:26 AM EDT Anemia, unspecified Type 2 diabetes mellitus without complications ([facility] V24, [facility] V28) Hyperlipidemia, unspecified Hypothyroidism, unspecified Magnesium deficiency Vitamin B12 deficiency anemia, unspecified Vitamin D deficiency, unspecified HEMOGLOBIN A1C Routine 04/10/2025 7:55 AM EDT Vitamin D deficiency, unspecified Essential (primary) hypertension Unspecified atrial fibrillation ([facility] V24, [facility] V28) Type 2 diabetes mellitus without complications ([facility] V24, [facility] V28) from Last 3 Months or Most Recently Relevant to Health Maintenance Results * (ABNORMAL) Complete blood count (07/10/2025 9:59 AM EDT) Only the most recent of5 resultswithin the time period is included. WBC 7.2 4.8 - 10.8 K/mcL LAB HEMETOLOGY METHOD 07/10/2025 1:30 PM EDT [facility] RBC 4.40 3.80 - 4.80 M/mcL LAB HEMETOLOGY METHOD 07/10/2025 1:30 PM EDT [facility] Hemoglobin 11.0(L) 11.5 - 16.0 g/dL LAB HEMETOLOGY METHOD 07/10/2025 1:30 PM EDT [facility] Hematocrit 36.6 35.0 - 47.0 % LAB HEMETOLOGY METHOD 07/10/2025 1:30 PM EDT [facility] MCV 82.4 79.0 - 98.0 FL LAB [facility] MCH 24.8(L) 27.0 - 32.0 pcg LAB HEMETOLOGY METHOD 07[facility]2025 [facility] MCHC 30.1(L) 32.0 - 37.0 g/dL LAB HEMETOLOGY METHOD 07/10[facility]2025 [facility] RDW 15.5(H) 11.0 - 15.0 % LAB HEMETOLOGY METHOD 07/10/2025 1:30 PM EDT [facility] Platelets 451(H) 130 - 400 K/[facility] LAB HEMETOLOGY METHOD 07/10/2025 1:30 PM EDT [facility] MPV 10.8 7.0 - 11.0 FL LAB HEMETOLOGY METHOD 07/10/2025 1:30 PM EDT [facility] NRBC 0.0 <1.0 % LAB HEMETOLOGY METHOD 07/10/2025 1:30 PM EDT [facility] NRBC Absolute 0.00 <0.10 K/[facility] LAB HEMETOLOGY METHOD 07/10/2025 1:30 PM EDT [facility] Blood Venous blood specimen / Unknown Venipuncture / Unknown 07/10/2025 9:59 AM EDT 07/10/2025 10:51 AM EDT us Bruce Welch MD LAB BLOOD ORDERABLES Final Resul t [facility] [address] [place] [address], * (ABNORMAL) Basic metabolic panel (07/10/2025 9:59 AM EDT) Only the most recent of4 resultswithin the time period is included. Sodium 137 133 - 145 mmol/L LAB CHEMISTRY METHOD 07/10/2025 4:12 PM [facility] Potassium 4.4 3.5 - 5.5 mmol/L LAB CHEMISTRY METHOD 07/10/2025 4:12 PM [facility] Chloride 103 96 - 110 mmol/L LAB CHEMISTRY METHOD 07/10/2025 4:12 PM [facility] CO2 26 21 - 32 mmol/L LAB CHEMISTRY METHOD 07/10/2025 4:12 PM [facility] Anion Gap 8 3 - 11 LAB CHEMISTRY METHOD 07/10/2025 4:12 PM [facility] Glucose 120(H) 70 - 100 mg/dL LAB CHEMISTRY METHOD 07/10/2025 4:12 PM [facility] BUN 20 5 - 25 mg/dL LAB CHEMISTRY METHOD 07/10/2025 4:12 PM [facility] Creatinine 0.69 0.50 - 1.10 mg/dL LAB CHEMISTRY METHOD 07/10/2025 4:12 PM [facility] eGFR 88 >=60 mL/min/1. 73m2 LAB CHEMISTRY METHOD 07/10/2025 4:12 PM [facility] Comment:Calculation based on the Chronic Kidney Disease Epidemiology Collaboration (CKD-EPI) equation refit without adjustment for race. BUN/Creatinine Ratio 29.0 LAB CHEMISTRY METHOD 07/10/2025 4:12 PM EDT [facility] Calcium 9.7 8.5 - 10.5 mg/dL LAB CHEMISTRY METHOD 07/10/2025 4:12 PM EDT [facility] Blood Venous blood specimen / Unknown Venipuncture / Unknown 07/10/2025 9:59 AM EDT 07/10/2025 10:51 AM EDT us Bruce Welch MD LAB BLOOD ORDERABLES Final Resul t Performing Organization Address [facility] de Phone Number [facility] [address] [place] [address], [place] [phone] * (ABNORMAL) Magnesium (07/05/2025 6:12 AM EDT) Only the most recent of2 resultswithin the time period is included. Magnesium 1.8(L) 1.9 - 2.6 mg/dL LAB CHEMISTRY METHOD 07/05/2025 11:16 AM EDT [facility] Blood Venous blood specimen / Unknown Venipuncture / Unknown 07/05/2025 6:12 AM EDT 07/05/2025 9:34 AM EDT us Bruce Welch MD LAB BLOOD ORDERABLES Final Resul t Performing Organization Address [facility]/ZIP Co de Phone Number [facility] [address] [place] [address], [place] [phone] * (ABNORMAL) Thyroid stimulating hormone with reflex to free t4 and free t3 (06/19/2025 5:26 AM EDT) TSH 0.05(L) 0.40 - 4.00 mcIU/mL LAB CHEMISTRY METHOD 06/19/2025 5:27 PM EDT [facility] Blood Venous blood specimen / Unknown Venipuncture / Unknown 06/19/2025 5:26 AM EDT 06/19/2025 10:47 AM EDT us Bruce Welch MD LAB BLOOD ORDERABLES Final Resul t Performing Organization Address [facility]/ZIP Co de Phone Number [facility] [address] [place] [address], [place] [phone] * Free thyroxine with reflex to free triiodothyronine (06/19/2025 5:26 AM EDT) Free T4 1.40 0.70 - 1.80 ng/dL LAB CHEMISTRY METHOD 06/19/2025 6:04 PM EDT [facility] Blood Venous blood specimen / Unknown Venipuncture / Unknown 06/19/2025 5:26 AM EDT 06/19/2025 10:47 AM EDT us Bruce Welch MD LAB BLOOD ORDERABLES Final Resul t Performing Organization Address [facility] de Phone Number [facility] [address] [place] [address], [place] [phone] * Vitamin B12 and folate (06/19/2025 5:26 AM EDT) Vitamin B-12 774 250 - 900 pcg/mL LAB CHEMISTRY METHOD 06/19/2025 11:51 AM EDT [facility] Folate 6.4 2.8 - 17.0 ng/ml LAB CHEMISTRY METHOD 06/19/2025 11:51 AM EDT [facility] Blood Venous blood specimen / Unknown Venipuncture / Unknown 06/19/2025 5:26 AM EDT 06/19/2025 10:47 AM EDT us Bruce Welch MD LAB BLOOD ORDERABLES Final Resul t Performing Organization Address City/[facility]/ZIP Co de Phone Number [facility] [address] [place] [address], * Lipid panel with reflex to direct LDL (06/19/2025 5:26 AM EDT) Cholesterol 116 0 - 200 mg/dL LAB CHEMISTRY METHOD 06/19/2025 11:51 AM EDT [facility] Triglycerides 72 0 - 150 mg/dL LAB CHEMISTRY METHOD 06/19/2025 11:51 AM EDT [facility] HDL 58 >=40 mg/dL LAB CHEMISTRY METHOD 06/19/2025 11:51 AM EDT [facility] LDL Calculated 44 0 - 100 mg/dL LAB CHEMISTRY METHOD 06/19/2025 11:51 AM EDT [facility] VLDL Cholesterol Apolinar 14.4 mg/dL LAB CHEMISTRY METHOD 06/19/2025 11:51 AM EDT [facility] Non HDL Chol. (LDL+VLDL) 58 <145 mg/dL LAB CHEMISTRY METHOD 06/19/2025 11:51 AM EDT [facility] Chol/HDL Ratio 2.0 0.0 - 4.4 LAB CHEMISTRY METHOD 06/19/2025 11:51 AM EDT [facility] Blood Venous blood specimen / Unknown Venipuncture / Unknown 06/19/2025 5:26 AM EDT 06/19/2025 10:47 AM EDT Bruce Welch MD LAB BLOOD ORDERABLES Final Resul t [facility] [address] [place] [address], [place] [phone] * Vitamin D 25 hydroxy (06/19/2025 5:26 AM EDT) Vit D, 25-Hydroxy 72.3 30.0 - 80.0 ng/mL LAB CHEMISTRY METHOD 06/19/2025 1:24 PM EDT [facility] Blood Venous blood specimen / Unknown Venipuncture / Unknown 06/19/2025 5:26 AM EDT 06/19/2025 10:47 AM EDT us Bruce Welch MD LAB BLOOD ORDERABLES Final Resul t Performing Organization Address [facility]/ZIP Co de Phone Number [facility] [address] [place] [address], [place] [phone] * (ABNORMAL) Triiodothyronine free (06/19/2025 5:26 AM EDT) T3, Free 193(L) 230 - 420 pcg/dL LAB CHEMISTRY METHOD 06/19/2025 7:36 PM EDT [facility] Blood Venous blood specimen / Unknown Venipuncture / Unknown 06/19/2025 5:26 AM EDT 06/19/2025 10:47 AM EDT us Bruce Welch MD LAB BLOOD ORDERABLES Final Resul t Performing Organization Address [facility] de Phone Number [facility] [address] [place] [address], [place] [phone] * (ABNORMAL) Comprehensive metabolic panel (06/19/2025 5:26 AM EDT) Sodium 139 133 - 145 mmol/L LAB CHEMISTRY METHOD 06/19/2025 11:51 AM EDT [facility] Potassium 3.9 3.5 - 5.5 mmol/L LAB CHEMISTRY METHOD 06/19/2025 11:51 AM EDT [facility] Chloride 104 96 - 110 mmol/L LAB CHEMISTRY METHOD 06/19/2025 11:51 AM EDT [facility] CO2 27 21 - 32 mmol/L LAB CHEMISTRY METHOD 06/19/2025 11:51 AM [facility] Anion Gap 8 3 - 11 LAB CHEMISTRY METHOD 06/19/2025 11:51 AM [facility] Glucose 70 70 - 100 mg/dL LAB CHEMISTRY METHOD 06/19/2025 11:51 AM [facility] BUN 27(H) 5 - 25 mg/dL LAB CHEMISTRY METHOD 06/19/2025 11:51 AM [facility] Creatinine 0.91 0.50 - 1.10 mg/dL LAB CHEMISTRY METHOD 06/19/2025 11:51 AM [facility] eGFR 64 >=60 mL/min/1. 73m2 LAB CHEMISTRY METHOD 06/19/2025 11:51 AM [facility] Comment:Calculation based on the Chronic Kidney Disease Epidemiology Collaboration (CKD-EPI) equation refit without adjustment for race. BUN/Creatinine Ratio 29.7 LAB CHEMISTRY METHOD 06/19/2025 11:51 AM [facility] Calcium 9.3 8.5 - 10.5 mg/dL LAB CHEMISTRY METHOD 06/19/2025 11:51 AM [facility] AST (SGOT) 22 10 - 42 unit/L LAB CHEMISTRY METHOD 06/19/2025 11:51 AM [facility] ALT (SGPT) 26 10 - 60 unit/L LAB CHEMISTRY METHOD 06/19/2025 11:51 AM [facility] Alkaline Phosphatase 158(H) 42 - 121 unit/L LAB CHEMISTRY METHOD 06/19/2025 11:51 AM [facility] Total Protein 5.8(L) 6.0 - 8.0 g/dL LAB CHEMISTRY METHOD 06/19/2025 11:51 AM [facility] Albumin 2.8(L) 3.2 - 5.0 g/dL LAB CHEMISTRY METHOD 06/19/2025 11:51 AM [facility] Total Bilirubin 0.5 0.0 - 1.4 mg/dL LAB CHEMISTRY METHOD 06/19/2025 11:51 AM EDT [facility] Blood Venous blood specimen / Unknown Venipuncture / Unknown 06/19/2025 5:26 AM EDT 06/19/2025 10:47 AM EDT Bruce Welch MD LAB BLOOD ORDERABLES Final Resul t Performing Organization Address City/[facility]/ZIP Co de Phone Number [facility] [address] [place] [address], [place] [phone] * Hemoglobin A1c (04/10/2025 7:55 AM EDT) [facility] Hemoglobin A1C 6.3 <6.5 % LAB CHEMISTRY METHOD 04/10/2025 9:54 PM EDT [facility] Mean Bld Glu Estim. 134 mg/dL LAB CHEMISTRY METHOD 04/10/2025 9:54 PM EDT [facility] Blood Venous blood specimen / Unknown Venipuncture / Unknown 04/10/2025 7:55 AM EDT 04/10/2025 10:43 AM EDT Bruce Welch MD LAB BLOOD ORDERABLES Final Resul t Performing Organization Address [facility] Co de Phone Number [facility] [address] [place] [address], [place] [phone] from Last 3 Months or Most Recently Relevant to Health Maintenance Insurance [employer] Care Teams Boil Off Worker Relationship Specialty Start Date End Date Bruce Welch MD [address] [facility] [address] [place] [address] PCP - General Geriatric Medicine 06/19/25
--- OUTSIDE RECORDS SUMMARY | 2025-09-12 16:56 | XMS_ITS | Encounter Summary ---
Author Organization [facility] Address [address] [place] [phone] Care Team Providers Care Grand Jury Deputy Sheriff Name Role Phone Bruce Welch MD Primary Care Provider [phone] Encounter Details Date Type Department Care Team (Late st Contact Info) Description 04/21/2025 Lab Requisition [facility] - Main Lab [address] [facility] [place] [address] Bruce Welch MD [address] [place], [place] [id number] Vitamin D deficiency, unspecified; Essential (primary) hypertension; [...] V28) documented in this encounter Care Teams Grand Jury Deputy Sheriff Relationship Specialty Start Date End Date Bruce Welch MD [address] [place], [place] [id number] PCP - General Geriatric Medicine 06/19/25 documented as of this encounter
--- OUTSIDE RECORDS SUMMARY | 2025-09-12 16:56 | XMS_ITS | Clinical Summary ---
Author Organization [facility] Address [address] [address] Phone Care Team Providers Care Early Intervention Specialist Name Role Phone Trevor Rios MD Primary [...] Advance Directives For more information, please contact: [phone] (9AM - 5PM [place], Thursday-Thursday) Documents on File Type Date Recorded Patient Caseworker Expl anation MOLST 08/05/2024 Care Teams Early Intervention Specialist Relationship Specialty Start Date End Date Trevor Rios MD [address] [place] [address] PCP - General Internal Medicine 09/02/24 Additional Source Comments The information contained in this document represents components of the legal health record. It is not the complete legal health record.[facility]
--- OUTSIDE RECORDS SUMMARY | 2025-09-12 16:56 | XMS_ITS | Encounter Summary ---
Author Organization [facility] Address [address] [place] [address] Care Team Providers Care Whitewasher Name Role Phone Bruce Welch MD Primary Care Provider [phone] Encounter Details Date Type Department Care Team (Late st Contact Info) Description 04/10/2025 Lab Requisition [facility] - Main Lab [address] [place] [address] Bruce Welch MD [address] [place], [place] [id number] Vitamin D deficiency, unspecified; Essential (primary) hypertension; [...] (ABNORMAL) Vitamin B12 (04/10/2025 7:55 AM EDT) [facility] Vitamin B-12 1,228(H) 250 - 900 pcg/mL LAB CHEMISTRY METHOD 04/10/2025 12:37 PM EDT [facility] Blood Venous blood specimen / Unknown Venipuncture / Unknown 04/10/2025 7:55 AM EDT 04/10/2025 10:43 AM EDT us Bruce Welch MD LAB BLOOD ORDERABLES Final Resul t Performing Organization Address City/[facility]/ZIP Co de Phone Number [facility] [address] [place] [address], [place] [phone] * Folate (04/10/2025 7:55 AM EDT) [facility] Folate 7.2 2.8 - 17.0 ng/ml LAB CHEMISTRY METHOD 04/10/2025 12:37 PM EDT [facility] Blood Venous blood specimen / Unknown Venipuncture / Unknown 04/10/2025 7:55 AM EDT 04/10/2025 10:43 AM EDT us Bruce Welch MD LAB BLOOD ORDERABLES Final Resul t Performing Organization Address [facility] Co de Phone Number [facility] [address] [place] [address], [place] [phone] * Vitamin D 25 hydroxy (04/10/2025 7:55 AM EDT) [facility] Vit D, 25-Hydroxy 71.3 30.0 - 80.0 ng/mL LAB CHEMISTRY METHOD 04/10/2025 2:06 PM EDT [facility] Blood Venous blood specimen / Unknown Venipuncture / Unknown 04/10/2025 7:55 AM EDT 04/10/2025 10:43 AM EDT us Bruce Welch MD LAB BLOOD ORDERABLES Final Resul t Performing Organization Address City/[facility]/ZIP Co de Phone Number [facility] [address] [place] [address], [place] [phone] * Hemoglobin A1c (04/10/2025 7:55 AM EDT) [facility] Hemoglobin A1C 6.3 <6.5 % LAB [...] Resul t [facility] [address] [place] [address], [place] [phone] * (ABNORMAL) Lipid panel with reflex to direct LDL (04/10/2025 7:55 AM EDT) [facility] Cholesterol 94 0 - 200 mg/dL LAB CHEMISTRY METHOD 04/10/2025 12:37 PM [facility] Triglycerides 84 0 - 150 mg/dL LAB CHEMISTRY METHOD 04/10/2025 12:37 PM [facility] HDL 39(L) >=40 mg/dL LAB CHEMISTRY METHOD 04/10/2025 12:37 PM [facility] LDL Calculated 38 0 - 100 mg/dL LAB CHEMISTRY METHOD 04/10/2025 12:37 PM [facility] VLDL Cholesterol Apolinar 16.8 mg/dL LAB CHEMISTRY METHOD 04/10/2025 12:37 PM EDT [facility] Non HDL Chol. (LDL+VLDL) 55 <145 mg/dL LAB CHEMISTRY METHOD 04/10/2025 12:37 PM [facility] Chol/HDL Ratio 2.4 0.0 - 4.4 LAB CHEMISTRY METHOD 04/10/2025 12:37 PM [facility] Blood Venous blood specimen / Unknown Venipuncture / Unknown 04/10/2025 7:55 AM EDT 04/10/2025 10:43 AM EDT Bruce Welch MD LAB BLOOD ORDERABLES Final Resul t [facility] [address] [place] [address], [place] [phone] * (ABNORMAL) Comprehensive metabolic panel (04/10/2025 7:55 AM EDT) Sodium 142 133 - 145 mmol/L LAB CHEMISTRY METHOD 04/10/2025 12:37 PM [facility] Potassium 4.1 3.5 - 5.5 mmol/L LAB CHEMISTRY METHOD 04/10/2025 12:37 PM [facility] Chloride 107 96 - 110 mmol/L LAB CHEMISTRY METHOD 04/10/2025 12:37 PM [facility] CO2 27 21 - 32 mmol/L LAB CHEMISTRY METHOD 04/10/2025 12:37 PM [facility] Anion Gap 8 3 - 11 LAB CHEMISTRY METHOD 04/10/2025 12:37 PM [facility] Glucose 87 70 - 100 mg/dL LAB CHEMISTRY METHOD 04/10/2025 12:37 PM [facility] BUN 15 5 - 25 mg/dL LAB CHEMISTRY METHOD 04/10/2025 12:37 PM [facility] Creatinine 0.73 0.50 - 1.10 mg/dL LAB CHEMISTRY METHOD 04/10/2025 12:37 PM [facility] eGFR 84 >=60 mL/min/1. 73m2 LAB CHEMISTRY METHOD 04/10/2025 12:37 PM [facility] Comment:Calculation based on the Chronic Kidney Disease Epidemiology Collaboration (CKD-EPI) equation refit without adjustment for race. BUN/Creatinine Ratio 20.5 LAB CHEMISTRY METHOD 04/10/2025 12:37 PM T [facility] Calcium 8.4(L) 8.5 - 10.5 mg/dL LAB CHEMISTRY METHOD 04/10/2025 12:37 PM [facility] AST (SGOT) 35 10 - 42 unit/L LAB CHEMISTRY METHOD 04/10/2025 12:37 PM [facility] ALT (SGPT) 34 10 - 60 unit/L LAB CHEMISTRY METHOD 04/10/2025 12:37 PM [facility] Alkaline Phosphatase 225(H) 42 - 121 unit/L LAB CHEMISTRY METHOD 04/10/2025 12:37 PM [facility] Total Protein 5.4(L) 6.0 - 8.0 g/dL LAB CHEMISTRY METHOD 04/10/2025 12:37 PM [facility] Albumin 2.4(L) 3.2 - 5.0 g/dL LAB CHEMISTRY METHOD 04/10/2025 12:37 PM [facility] Total Bilirubin 0.4 0.0 - 1.4 mg/dL LAB CHEMISTRY METHOD 04/10/2025 12:37 PM [facility] Blood Venous blood specimen / Unknown Venipuncture / Unknown 04/10/2025 7:55 AM EDT 04/10/2025 10:43 AM EDT us Bruce Welch MD LAB BLOOD ORDERABLES Final Resul t [facility] [address] [place] [address], * (ABNORMAL) Complete blood count (04/10/2025 7:55 AM EDT) WBC 7.3 4.8 - 10.8 K/mcL LAB HEMETOLOGY METHOD 04/10/2025 12:23 PM EDT [facility] RBC 3.30(L) 3.80 - 4.80 M/mcL LAB HEMETOLOGY METHOD 04/10/2025 12:23 PM [facility] Hemoglobin 8.4(L) 11.5 - 16.0 g/dL LAB HEMETOLOGY METHOD 04/10/2025 12:23 PM [facility] Hematocrit 27.9(L) 35.0 - 47.0 % LAB HEMETOLOGY METHOD 04/10/2025 12:23 PM [facility] MCV 83.8 79.0 - 98.0 FL LAB HEMETOLOGY METHOD 04/10/2025 12:23 PM [facility] MCH 25.2(L) 27.0 - 32.0 pcg LAB HEMETOLOGY METHOD 04/10/2025 12:23 PM [facility] MCHC 30.1(L) 32.0 - 37.0 g/dL LAB HEMETOLOGY METHOD 04/10/2025 12:23 PM [facility] RDW 15.7(H) 11.0 - 15.0 % LAB HEMETOLOGY METHOD 04/10/2025 12:23 PM [facility] Platelets 279 130 - 400 K/mcL LAB HEMETOLOGY METHOD 04/10/2025 12:23 PM [facility] MPV 11.8(H) 7.0 - 11.0 FL LAB HEMETOLOGY METHOD 04/10/2025 12:23 PM [facility] NRBC 0.0 <1.0 % LAB HEMETOLOGY METHOD 04/10/2025 12:23 PM [facility] NRBC Absolute 0.00 <0.10 K/mcL LAB HEMETOLOGY METHOD 04/10/2025 12:23 PM [facility] Blood Venous blood specimen / Unknown Venipuncture / Unknown 04/10/2025 7:55 AM EDT 04/10/2025 10:43 AM EDT Bruce Welch MD LAB BLOOD ORDERABLES Final Resul t [facility]) [facility] [address] [place] [address], [place] [phone] documented in this encounter Visit Diagnoses Diagnosis Vitamin D deficiency, unspecified Essential (primary) hypertension Unspecified essential hypertension Unspecified atrial fibrillation (CMS/[facility] V24, CMS/[facility] V28) Type 2 diabetes mellitus without complications (CMS/[facility] V24, CMS/[facility] V28) documented in this encounter Care Teams Whitewasher Relationship Specialty Start Date End Date Bruce Welch MD [address] [place] [address] [address] [place] [address] PCP - General Geriatric Medicine 06/19/25 documented as of this encounter
--- OUTSIDE RECORDS SUMMARY | 2025-09-12 16:56 | XMS_ITS | Encounter Summary ---
Author Organization [facility] Address [address] [place] [address] Care Team Providers Care Supervisor Dry Cleaning Name Role Phone Bruce Welch MD Primary Care Provider [phone] Encounter Details Date Type Department Care Team (Late st Contact Info) Description 06/24/2025 Lab Requisition [facility] - Main Lab [address] [facility] [place] [address] Bruce Welch MD [address] [place], [place] [id number] Type 2 diabetes mellitus without complications (CMS/HCC [...] mmol/L LAB CHEMISTRY METHOD 06/26/2025 1:23 PM [facility] Potassium 3.9 3.5 - 5.5 mmol/L LAB CHEMISTRY METHOD 06/26/2025 1:23 PM [facility] Chloride 103 96 - 110 mmol/L LAB CHEMISTRY METHOD 06/26/2025 1:23 PM [facility] CO2 27 21 - 32 mmol/L LAB CHEMISTRY METHOD 06/26/2025 1:23 PM [facility] Anion Gap 8 3 - 11 LAB CHEMISTRY METHOD 06/26/2025 1:23 PM [facility] Glucose 111(H) 70 - 100 mg/dL LAB CHEMISTRY METHOD 06/26/2025 1:23 PM [facility] BUN 21 5 - 25 mg/dL LAB CHEMISTRY METHOD 06/26/2025 1:23 PM [facility] Creatinine 0.69 0.50 - 1.10 mg/dL LAB CHEMISTRY METHOD 06/26/2025 1:23 PM [facility] eGFR 88 >=60 mL/min/1. 73m2 LAB CHEMISTRY METHOD 06/26/2025 1:23 PM [facility] Comment:Calculation based on the Chronic Kidney Disease Epidemiology Collaboration (CKD-EPI) equation refit without adjustment for race. BUN/Creatinine Ratio 30.4 LAB CHEMISTRY METHOD 06/26/2025 1:23 PM [facility] Calcium 8.6 8.5 - 10.5 mg/dL LAB CHEMISTRY METHOD 06/26/2025 1:23 PM [facility] Blood Venous blood specimen / Unknown Venipuncture / Unknown 06/26/2025 10:03 AM EDT 06/26/2025 11:19 AM EDT us Bruce Welch MD LAB BLOOD ORDERABLES Final Resul t [facility] [address] [place] [address], * (ABNORMAL) Complete blood count (06/26/2025 10:03 AM EDT) [facility] WBC 9.4 4.8 - 10.8 K/mcL LAB HEMETOLOGY [facility] RBC 4.10 3.80 - 4.80 M/mcL LAB HEMETOLOGY METHOD [facility] Hemoglobin 10.2(L) 11.5 - 16.0 g/dL LAB HEMETOLOGY METHOD 06/26/2025 12:15 PM [facility] Hematocrit 33.2(L) 35.0 - 47.0 % LAB HEMETOLOGY METHOD 06/26/2025 12:15 PM [facility] MCV 81.4 79.0 - 98.0 FL LAB HEMETOLOGY METHOD 06/26/2025 12:15 PM [facility] MCH 25.0(L) 27.0 - 32.0 pcg LAB HEMETOLOGY METHOD 06/26/2025 12:15 PM [facility] MCHC 30.7(L) 32.0 - 37.0 g/dL LAB HEMETOLOGY METHOD 06/26/2025 12:15 PM [facility] RDW 15.9(H) 11.0 - 15.0 % LAB HEMETOLOGY METHOD 06/26/2025 12:15 PM [facility] Platelets 364 130 - 400 K/mcL LAB HEMETOLOGY METHOD 06/26/2025 12:15 PM [facility] MPV 10.5 7.0 - 11.0 FL LAB HEMETOLOGY METHOD 06/26/2025 12:15 PM [facility] NRBC 0.0 <1.0 % LAB HEMETOLOGY METHOD 06/26/2025 12:15 PM EDT [facility] NRBC Absolute 0.00 <0.10 K/mcL LAB HEMETOLOGY METHOD 06/26/2025 12:15 PM EDT [facility] Blood Venous blood specimen / Unknown Venipuncture / Unknown 06/26/2025 10:03 AM EDT 06/26/2025 11:19 AM EDT us Bruce Welch MD LAB BLOOD ORDERABLES Final Resul t [facility] [address] [place] [address], documented in this encounter Visit Diagnoses Diagnosis Type 2 diabetes mellitus without complications (CMS/HCC V24, CMS/HCC V28) Anemia, unspecified documented in this encounter Care Teams Supervisor Dry Cleaning Relationship Specialty Start Date End Date Bruce Welch MD [address] [place] [address] [address] [place] [address] PCP - General Geriatric Medicine 06/19/25 documented as of this encounter
--- OUTSIDE RECORDS SUMMARY | 2025-09-12 16:56 | XMS_ITS | Encounter Summary ---
Author Organization [facility] Address [address] [place] [address] Care Team Providers Care Angular Developer Name Role Phone Bruce Welch MD Primary Care Provider [phone] Encounter Details Date Type Department Care Team (Late st Contact Info) Description 04/16/2025 Lab Requisition [facility] - Main Lab [address] [facility] [place] [address] Bruce Welch MD [address] [place], [place] [id number] Vitamin D deficiency, unspecified; Essential (primary) hypertension; [...] 2 diabetes mellitus without complications (CMS/HCC V24, CMS/[facility] V28) documented in this encounter Results * Basic metabolic panel (04/18/2025 6:41 AM EDT) Sodium 138 133 - 145 mmol/L LAB CHEMISTRY METHOD 04/18/2025 12:48 PM [facility] Potassium 4.5 3.5 - 5.5 mmol/L LAB CHEMISTRY METHOD 04/18/2025 12:48 PM [facility] Chloride 102 96 - 110 mmol/L LAB CHEMISTRY METHOD 04/18/2025 12:48 PM [facility] CO2 26 21 - 32 mmol/L LAB CHEMISTRY METHOD 04/18/2025 12:48 PM [facility] Anion Gap 10 3 - 11 LAB CHEMISTRY METHOD 04/18/2025 12:48 PM [facility] Glucose 73 70 - 100 mg/dL LAB CHEMISTRY METHOD 04/18/2025 12:48 PM [facility] BUN 16 5 - 25 mg/dL LAB CHEMISTRY METHOD 04/18/2025 12:48 PM [facility] Creatinine 0.68 0.50 - 1.10 mg/dL LAB CHEMISTRY METHOD 04/18/2025 12:48 PM [facility] eGFR 89 >=60 mL/min/1. 73m2 LAB CHEMISTRY METHOD 04/18/2025 12:48 PM [facility] Comment:Calculation based on the Chronic Kidney Disease Epidemiology Collaboration (CKD-EPI) equation refit without adjustment for race. BUN/Creatinine Ratio 23.5 LAB CHEMISTRY METHOD 04/18/2025 12:48 PM [facility] Calcium 9.2 8.5 - 10.5 mg/dL LAB CHEMISTRY METHOD 04/18/2025 12:48 PM [facility] Blood Venous blood specimen / Unknown Venipuncture / Unknown 04/18/2025 6:41 AM EDT 04/18/2025 10:47 AM EDT us Bruce Welch MD LAB BLOOD ORDERABLES Final Resul t [facility] [address] [place] [address], [place] [phone] * (ABNORMAL) Complete blood count (04/18/2025 6:41 [...] LAB NRBC Absolute 0.00 <0.10 K/mcL [facility] 04/18/2025 12:24 PM EDT [facility] Blood Venous blood specimen / Unknown Venipuncture / Unknown 04/18/2025 6:41 AM EDT 04/18/2025 10:47 AM EDT Bruce Welch MD LAB BLOOD ORDERABLES Final Resul t [facility] [address] [place] [address], documented in this encounter Visit Diagnoses Diagnosis Vitamin D deficiency, unspecified Essential (primary) hypertension Unspecified essential hypertension Unspecified atrial fibrillation (CMS/HCC V24, CMS/HCC V28) Type 2 diabetes mellitus without complications (CMS/HCC V24, CMS/HCC V28) documented in this encounter Care Teams Angular Developer Relationship Specialty Start Date End Date Bruce Welch MD [address] [place] [address] [address] [place] [address] PCP - General Geriatric Medicine 06/19/25 documented as of this encounter
--- OUTSIDE RECORDS SUMMARY | 2025-09-12 16:57 | XMS_ITS | Patient Health Record ---
Author Organization [facility] Address [address] [place] [address] Care Team Providers Care Home Health Travel Ot Name Role Phone Wilbur Velázquez M.D. 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 (Z79.4) Active confirmed Plan Of Treatment Future Test Test Name Order Date COLONOSCOPY 06/09/2018 Insurance Providers Payer Name Payer Address Payer Phone Subscriber Number Group Number Insured Name Patient Relationship to Insured Coverage Start Date Coverage End Date [facility] [address] [place] [address] [id number] ALFONSO CUNHA Self - patient is the insured Medical (General) History Medical History History ICD Code hypertension diabetes mellitus elevated cholesterol hypothyroidism arthritis Surgical History Surgery Date(Month/Year) hysterectomy back surgery cholecystectomy cataract-lens implants both eyes
--- OUTSIDE RECORDS SUMMARY | 2025-09-12 16:57 | XMS_ITS | Encounter Summary ---
Author Organization [facility] Address [address] [place] [address] Care Team Providers Care Snap Attacher Name Role Phone Bruce Welch MD Primary Care Provider [phone] Encounter Details Date Type Department Care Team (Late st Contact Info) Description 07/08/2025 Lab Requisition [facility] - Main Lab [address] [facility] [place] [address] Bruce Welch MD [address] [place], [place] [phone] Type 2 diabetes mellitus without complications (CMS/HCC [...] mmol/L LAB CHEMISTRY METHOD 07/10/2025 4:12 PM [facility] Potassium 4.4 3.5 - 5.5 mmol/L LAB CHEMISTRY METHOD 07/10/2025 4:12 PM [facility] Chloride 103 96 - 110 mmol/L LAB CHEMISTRY METHOD 07/10/2025 4:12 PM [facility] CO2 26 21 - 32 mmol/L LAB CHEMISTRY METHOD 07/10/2025 4:12 PM [facility] Anion Gap 8 3 - 11 LAB CHEMISTRY METHOD 07/10/2025 4:12 PM [facility] Glucose 120(H) 70 - 100 mg/dL LAB CHEMISTRY METHOD 07/10/2025 4:12 PM [facility] BUN 20 5 - 25 mg/dL LAB CHEMISTRY METHOD 07/10/2025 4:12 PM [facility] Creatinine 0.69 0.50 - 1.10 mg/dL LAB CHEMISTRY METHOD 07/10/2025 4:12 PM [facility] eGFR 88 >=60 mL/min/1. 73m2 LAB CHEMISTRY METHOD 07/10/2025 4:12 PM [facility] Comment:Calculation based on the Chronic Kidney Disease Epidemiology Collaboration (CKD-EPI) equation refit without adjustment for race. BUN/Creatinine Ratio 29.0 LAB CHEMISTRY METHOD 07/10/2025 4:12 PM [facility] Calcium 9.7 8.5 - 10.5 mg/dL LAB CHEMISTRY METHOD 07/10/2025 4:12 PM [facility] Blood Venous blood specimen / Unknown Venipuncture / Unknown 07/10/2025 9:59 AM EDT 07/10/2025 10:51 AM EDT us Bruce Welch MD LAB BLOOD ORDERABLES Final Resul t [facility] [address] [place] [address], * (ABNORMAL) Complete blood count (07/10/2025 9:59 AM EDT) [facility] WBC 7.2 4.8 - 10.8 K/mcL LAB HEMETOLOGY METHOD 07/10/2025 1:30 PM EDT [facility] RBC 4.40 3.80 - 4.80 M/mcL LAB HEMETOLOGY METHOD 07/10/2025 1:30 PM EDT [facility] Hemoglobin 11.0(L) 11.5 - 16.0 [...] LAB HEMETOLOGY METHOD 07/10/2025 1:30 PM EDT [facility] Platelets 451(H) 130 - 400 K/mcL LAB HEMETOLOGY METHOD [facility]25 [facility] MPV 10.8 7.0 - 11.0 FL LAB HEMETOLOGY METHOD 07/10/2025 1:[facility] NRBC 0.0 <1.0 % LAB HEMETOLOGY METHOD 07/10/2025 1:30 PM EDT [facility] NRBC Absolute 0.00 <0.10 K/mcL LAB HEMETOLOGY METHOD 07/10/2025 1:30 PM EDT [facility] Blood Venous blood specimen / Unknown Venipuncture / Unknown 07/10/2025 9:59 AM EDT 07/10/2025 10:51 AM EDT us Bruce Welch MD LAB BLOOD ORDERABLES Final Resul t [facility] [address] [place] [address], documented in this encounter Visit Diagnoses Diagnosis Type 2 diabetes mellitus without complications (CMS/HCC V24, CMS/HCC V28) Anemia, unspecified documented in this encounter Care Teams Snap Attacher Relationship Specialty Start Date End Date Bruce Welch MD [address] [place] [address] [address] [place] [address] PCP - General Geriatric Medicine 06/19/25 documented as of this encounter
--- OUTSIDE RECORDS SUMMARY | 2025-09-12 16:57 | XMS_ITS | Encounter Summary ---
Author Organization [facility] Address [address] [place] [address] Care Team Providers Care Care Companion Name Role Phone Bruce Welch MD Primary Care Provider [phone] Encounter Details Date Type Department Care Team (Late st Contact Info) Description 07/05/2025 Lab Requisition [facility] - Main Lab [address] [facility] [place] [address] Bruce Welch MD [address] [place], [place] [id number] Essential (primary) hypertension; Hypomagnesemia Social History Tobacco [...] mg/dL LAB CHEMISTRY METHOD 07/05/2025 11:16 AM [facility] Blood Venous blood specimen / Unknown Venipuncture / Unknown 07/05/2025 6:12 AM EDT 07/05/2025 9:34 AM EDT us Bruce Welch MD LAB BLOOD ORDERABLES Final Resul t [facility] [address] [place] [address], * Basic metabolic panel (07/05/2025 6:12 AM EDT) Sodium 140 133 - 145 mmol/L LAB CHEMISTRY METHOD 07/05/2025 11:16 AM [facility] Potassium 4.6 3.5 - 5.5 mmol/L LAB CHEMISTRY METHOD 07/05/2025 11:16 AM [facility] Chloride 103 96 - 110 mmol/L LAB CHEMISTRY METHOD 07/05/2025 11:16 AM [facility] CO2 32 21 - 32 mmol/L LAB CHEMISTRY METHOD 07/05/2025 11:16 AM [facility] Anion Gap 5 3 - 11 LAB CHEMISTRY METHOD 07/05/2025 11:16 AM [facility] Glucose 91 70 - 100 mg/dL LAB CHEMISTRY METHOD 07/05/2025 11:16 AM [facility] BUN 16 5 - 25 mg/dL LAB CHEMISTRY METHOD 07/05/2025 11:16 AM [facility] Creatinine 0.70 0.50 - 1.10 mg/dL LAB CHEMISTRY METHOD 07/05/2025 11:16 AM [facility] eGFR 88 >=60 mL/min/1. 73m2 LAB CHEMISTRY METHOD 07/05/2025 11:16 AM [facility] Comment:Calculation based on the Chronic Kidney Disease Epidemiology Collaboration (CKD-EPI) equation refit without adjustment for race. BUN/Creatinine Ratio 22.9 LAB CHEMISTRY METHOD 07/05/2025 11:16 AM EDT [facility] Calcium 8.9 8.5 - 10.5 mg/dL LAB CHEMISTRY METHOD 07/05/2025 11:16 AM EDT [facility] Blood Venous blood specimen / Unknown Venipuncture / Unknown 07/05/2025 6:12 AM EDT 07/05/2025 9:34 AM EDT us Bruce Welch MD LAB BLOOD ORDERABLES Final Resul t [facility] [address] [place] [address], [place] [phone] * (ABNORMAL) Complete blood count (07/05/2025 6:12 AM EDT) WBC 9.1 4.8 - 10.8 K/mcL LAB HEMETOLOGY METHOD 07/05/2025 10:26 AM [facility] RBC 4.30 3.80 - 4.80 M/mcL LAB HEMETOLOGY METHOD 07/05/2025 10:26 AM [facility] Hemoglobin 10.7(L) 11.5 - 16.0 g/dL LAB HEMETOLOGY METHOD 07/05/2025 10:26 AM [facility] Hematocrit 35.4 35.0 - 47.0 % LAB HEMETOLOGY METHOD 07/05/2025 10:26 AM [facility] MCV 81.6 79.0 - 98.0 FL LAB HEMETOLOGY METHOD 07/05/2025 10:26 AM [facility] MCH 24.7(L) 27.0 - 32.0 pcg LAB HEMETOLOGY METHOD 07/05/2025 10:26 AM [facility] MCHC 30.2(L) 32.0 - 37.0 g/dL LAB HEMETOLOGY METHOD 07/05/2025 10:26 AM EDT [facility] RDW 15.9(H) 11.0 - 15.0 % LAB HEMETOLOGY METHOD 07/05/2025 10:26 AM EDT [facility] Platelets 387 130 - 400 K/mcL LAB HEMETOLOGY METHOD 07/05/2025 10:26 AM EDT [facility] MPV 10.6 7.0 - 11.0 FL LAB HEMETOLOGY METHOD 07/05/2025 10:26 AM EDT [facility] NRBC 0.0 <1.0 % LAB HEMETOLOGY METHOD 07/05/2025 10:26 AM EDT [facility] NRBC Absolute 0.00 <0.10 K/mcL LAB HEMETOLOGY METHOD 07/05/2025 10:26 AM EDT [facility] Blood Venous blood specimen / Unknown Venipuncture / Unknown 07/05/2025 6:12 AM EDT 07/05/2025 9:34 AM EDT Bruce Welch MD LAB BLOOD ORDERABLES Final Resul t [facility] [address] [place] [address], documented in this encounter Visit Diagnoses Diagnosis Essential (primary) hypertension Unspecified essential hypertension Hypomagnesemia Disorders of magnesium metabolism documented in this encounter Care Teams Care Companion Relationship Specialty Start Date End Date Bruce Welch MD [address] [place], [place] [id number] [place] [address] PCP - General Geriatric Medicine 06/19/25 documented as of this encounter
--- OUTSIDE RECORDS SUMMARY | 2025-09-12 16:57 | XMS_ITS | Encounter Summary ---
Author Organization [facility] Address [address] [place] [id number] Care Team Providers Care Paperback Machine Operator Name Role Phone Bruce Welch MD Primary Care Provider Encounter Details Date Type Department Care Team (Late st Contact Info) Description 07/14/2025 Lab Requisition [facility] - Main Lab [address] [facility] [address] Bruce Welch MD [address] [facility] [address] [place], [place] [id number] Type 2 diabetes mellitus without complications (CMS/HCC [...] unspecified documented in this encounter Care Teams Paperback Machine Operator Relationship Specialty Start Date End Date Bruce Welch MD [address] [facility] [address] [place], [place] [phone] PCP - General Geriatric Medicine 06/19/25 documented as of this encounter
--- NOTE | 2025-10-09 10:29 | P.OP_ITS ---
Operative Note Operative Note Date of Service: 10/09/25 Narrative: Preop diagnosis: 1. Left Carpal tunnel syndrome Postop diagnosis: same Procedure: 1. Left Carpal tunnel release Surgeon: Maggie Tuttle MD Custom Stock Maker: None Anesthesia: local block using 1% lidocaine with epinephrine Findings: Thickened transverse carpal ligament. EBL: Less than 5 mL Specimens: None Complications: None Disposition: Brought to recovery room in stable condition Plan: Follow-up for 10-14 days for wound check and suture removal Indications: The patient is 79 years old, with left carpal tunnel syndrome that has been unresponsive to nonoperative management. The risks and benefits of operative treatment including but not limited to risk of damage to blood vessels, nerves, tendons, infection, persistent pain, persistent symptoms, or possible need for additional surgery were discussed with the patient and the patient wishes to proceed with surgery. Procedure: Once consent was obtained a local block was performed using a combination of 1% lidocaine with epinephrine. The patient was then brought back to the operating suite and placed on the operative table in supine position. The left upper extremity was prepped and draped in a standard surgical fashion. Once assured that we had a good block, a 2.0 cm longitudinal incision was made centered over the carpal tunnel. The incision was made through the skin to the subcutaneous tissues using a #15 blade. Dissection was made down to the level of the transverse carpal ligament with care being taken to protect the palmar cutaneous nerve. Once the transverse carpal ligament was clearly visualized, a longitudinal incision was made in the transverse carpal ligament 1st using a #15 blade, then using tenotomy scissors under direct visualization. Care was taken to look for and protect the motor branch of the median nerve when seen in this area. Once satisfied with our carpal tunnel release the wound was copiously irrigated with normal saline and hemostasis was obtained with a brief period of local pressure. The skin edges were reapproximated with some 5.0 nylon suture material and a sterile dressing was applied. The patient appears to have tolerated the procedure well and with no complicatio ns. All digits were well vascularized at the conclusion of the case.
--- NOTE | 2025-10-09 10:29 | MHC.SHP ---
Pre-Procedural Eval Section A - 24 Hr Update-Section A only Date of Service: 10/09/25 The patient is an INPATIENT: No Changes since office visit: No Cold of Flu in the past 2 weeks, No New Medical Problems, No Changes in Medication and No Patient answered all questions The patient has been examined within 24 hours of the surgical procedure. The History & Physical has been completed within 30 days and I have reviewed it.: Yes Section B - Complete if H&P > 30 days Chief Complaint: Carpal tunnel syndrome, left upper limb Allergies: Allergies Allergy/AdvReac Type Severity Reaction Status Date / Time amoxicillin (Augmentin) Allergy Unknown hives Verified 10/04/25 13:48 clavulanic acid (Augmentin) Allergy Unknown hives Verified 10/04/25 13:48 furosemide Allergy Unknown unknown Verified 10/04/25 13:48 latex (LATEX) Allergy Unknown UNKNOWN Verified 10/04/25 13:48 lisinopril Allergy Unknown Unknown Verified 10/04/25 13:48 oxycodone (Percocet) Allergy Unknown Stomach Verified 10/04/25 13:48 upset tramadol Allergy Unknown Stomach Verified 10/04/25 13:48 uspet Plan Diagnosis/Plan: Unchanged I have reviewed the history and physical and performed a pertinent physical examination on my patient. No changes have occurred unless specified. Time Spent With Patient Time: Total time managing care of this patient today ____ minutes.
[2025-10-09 12:58] VITALS: BP 127/54; PULSE 60; RESP 16; TEMP 36.6; O2SAT 99; BMI 27.0
[2025-10-09 15:14] VITALS: BP 114/60; PULSE 67; RESP 16; O2SAT 95
== END 2025-10-09 15:16 | disposition home or self-care (01) ==
PROVIDERS: PCP Internal Medicine; Visit Provider Orthopaedic Surgery
PROC: (CPT 64721; principal; 2025-10-09 13:40)
DX: G56.02 Carpal tunnel syndrome, left upper limb (principal); M79.642 Pain in left hand; R20.0 Anesthesia of skin; R20.2 Paresthesia of skin; Z91.81 History of falling; I48.0 Paroxysmal atrial fibrillation; E11.65 Type 2 diabetes mellitus with hyperglycemia; D64.9 Anemia, unspecified; I69.319 Unspecified symptoms and signs involving cognitive functions following cerebral infarction; I10 Essential (primary) hypertension; E78.2 Mixed hyperlipidemia; Z79.01 Long term (current) use of anticoagulants; Z79.4 Long term (current) use of insulin; Z88.1 Allergy status to other antibiotic agents; Z88.5 Allergy status to narcotic agent; Z88.8 Allergy status to other drugs, medicaments and biological substances; Z91.040 Latex allergy status; Z98.890 Other specified postprocedural states; Z87.891 Personal history of nicotine dependence
CPT/HCPCS: 64721; J0165; J2003

== ENCOUNTER → 2025-10-09 10:56 | Outpatient (BNV) | payer MEDICARE, SELFPAY | PROVIDERS: PCP Internal Medicine; Visit Provider Orthopaedic Surgery | DX: G56.02 Carpal tunnel syndrome, left upper limb (principal) | CPT/HCPCS: 64721 ==

== ENCOUNTER 2025-10-11 15:28 | Outpatient (AMB) | payer MEDICARE, SELFPAY ==
[2025-10-11 15:39] VITALS: BP 120/40; PULSE 75; RESP 18; O2SAT 98
--- NOTE | 2025-10-11 15:39 | A.OFFPC_ITS ---
Vital Signs 10/11/25 15:39 Height 5 ft 1 in BP 120/40 L Blood Pressure Location Rt brachial Position Sitting Respiration 18 Pulse 75 Pulse Source Pulse Oximeter Temp Source Temporal Artery Scan Pulse Oximetry (%) 98 Oxygen Delivery Method Room Air Intake Visit Reasons: complex - transfer from [facility] Parliamentary Archivist Required: No Accompanied by: Self / Same As Patient Allergies amoxicillin (Augmentin) Allergy (Unknown, Verified 10/12/25 14:25) hives clavulanic acid (Augmentin) Allergy (Unknown, Verified 10/12/25 14:25) hives furosemide Allergy (Unknown, Verified 10/12/25 14:25) unknown latex (LATEX) Allergy (Unknown, Verified 10/12/25 14:25) UNKNOWN lisinopril Allergy (Unknown, Verified 10/12/25 14:25) Unknown oxycodone (Percocet) Allergy (Unknown, Verified 10/12/25 14:25) Stomach upset tramadol Allergy (Unknown, Verified 10/12/25 14:25) Stomach uspet Medication List - Last Reconciled 10/11/25 by CARSON Ventura apixaban (Eliquis) 5 mg PO BID atorvastatin 80 mg PO BEDTIME blood sugar diagnostic FREESTYLE LITE TEST STRIPS TO CHECK THREE TIMES A DAY blood-glucose meter (FreeStyle Lite Meter kit) As directed cyanocobalamin (vitamin B-12) 500 mcg PO DAILY ezetimibe 10 mg PO BEDTIME gabapentin 300 mg PO BEDTIME levothyroxine (Levoxyl) 100 mcg PO DAILY liraglutide 1.2 mg (0.2 mL) subcut DAILY 90 days magnesium oxide 800 mg (2 x 400 mg (241.3 mg magnesium)) PO BID 90 days metformin 1,000 mg PO BIDWM [Oxygen mask As directed] pen needle, diabetic (Novofine 32) As directed up to three times per day sertraline 50 mg PO BEDTIME 90 days [Stair lift As directed] zinc gluconate 50 mg PO DAILY Tobacco use date assessed: 10/11/25 Fall risk assessment: 2 + Falls in past year Last assessed Fall Risk: 10/11/25 Dental Screening Dental Screen Date: 10/11/25 Did you have a dental visit in the last 12 months?: No Did you have a dental problem in the last 6 months where you did not have access to dental care?: No Was dental information given to patient?: No HPI HPI Comments History of Present Illness Details The patient is a 79-year-old female presenting for transition of care from Dr. Michel, and management of multiple chronic conditions. She has a history of two strokes in the past two years, with the first occurring a month after her 's . These strokes have resulted in residual left-sided weakness and frequent falls. Her cardiac history includes paroxysmal atrial fibrillation, for which she is prescribed Eliquis and is followed by cardiology, having previously undergone Holter monitoring. She has a lifelong history of hypertension. Neurologically, in addition to the stroke sequelae, she is followed for depression, characterized by crying spells and emotional lability, and is treated with sertraline. A recent neurology visit also revealed mild cognitive decline. She reports tingling and numbness in her hands. In terms of her gastrointestinal health, she has chronic hypomagnesemia, bouts of diarrhea, and cramping. An upper endoscopy and colonoscopy in spring revealed diverticulosis. Her magnesium level was recently found to be low after her 90- day prescription for magnesium 400 mg twice daily had lapsed; she has since resumed this supplement. Endocrine history is significant for long-standing type 2 diabetes and hypothyroidism. Following significant weight loss, her levothyroxine dose was recently reduced to 100 mcg due to a low TSH. Her diabetes is managed with metformin 1,000 mg twice daily and an injectable, with a recent HbA1c of 5.7- 5.8%. Her B12 level was found to be elevated, and she takes two 1000 mcg B12 gummies daily. Pulmonary history includes nocturnal hypoxemia requiring 2 liters of oxygen at night, and she is followed by pulmonology. She has a smoking history of approximately 50 years. Functionally, the patient receives PT and OT at home, uses a walker around the house, and a wheelchair for appointments. She recently had a procedure on her hand two days ago and is experiencing subsequent swelling and throbbing pain. Health Maintenance - Followed by specialists including card iology, neurology, gastroenterology, and pulmonology. - Underwent upper endoscopy and colonosc opy in which found diverticulosis. - Pending capsule endoscopy for further GI evaluation, awaiting insurance approval. - Receives physical and occupational the rapy at home. - Recent lab work showed elevated vitami n B12, low magnesium, and a low TSH. Social History - Substance use: Reports a history of sm oking for approximately 50 years. - Living situation: Lives with her theresa fernandez and is never left alone. - Support system: Receives care from an aide for 35 hours per week. - Functional status: Uses a walker at [facility] and a wheelchair for doctor's appointments due to unsteadiness. - Nutrition: Has experienced significant weight loss of 30-40 pounds over the past two years. Results - Labs: Recent labs showed low magnesium , a low TSH, and an elevated B12 level. - Labs: Recent HbA1c was 5.8%. - Labs: Electrolytes, including potassiu m, were normal. - Tests and Diagnostics: An upper endosc opy and colonoscopy performed in revealed diverticulosis. - Tests and Diagnostics: A neurology ass essment showed mild cognitive decline. [facility] Medical History Acid reflux Decreased appetite Carpal tunnel syndrome Frequent falls Paroxysmal atrial fibrillation Orthostatic hypotension Anemia Buttock wound Obesity (BMI 30-39.9) Neuropathy Acquired hypothyroidism Mixed hyperlipidemia Essential hypertension Atrial fibrillation Hypothyroidism Obesity Type 2 diabetes mellitus with morbid obesity Annual physical exam Vitamin D deficiency HLD (hyperlipidemia) T2DM (type 2 diabetes mellitus) Diabetes mellitus Hypertension Surgical History H/O hysterectomy for benign disease History of vitrectomy History of surgery History of colonoscopy (~01/28/19) History of appendectomy History of cholecystectomy S/P JOSIE (total abdominal hysterectomy) Family History Father Diabetes Mother CHF (congestive heart failure) CVD (cardiovascular disease) Brother HIV (human immunodeficiency virus infection) Maternal Aunt Stomach cancer Social History Household Members: Children Household Members Other:: alternating among 2 daughters and 1 son Housing: House Do you presently have visiting nurse or other home services: No Alcohol intake: current Patient Tobacco Use Status: Former Tobacco user Tobacco use type: Cigarette Years Smoked: 30, started at 10, about 15 cig a day, e-Cigarette/Vaping Use: Former Use Second Hand Smoke Exposure: Yes Advance Directives: Yes Advance Directives on File: Yes Advance Directives Date on File: 12/15/23 service: No Current occupational status: retired Current occupational exposures/hazards: No Cognitive needs: No Hearing needs: No Vision needs: No Questionnaire PHQ-9 Over the last 2 weeks, how often have you been bothered by any of the following problems? 1. Little interest or pleasure in doing things: several days 2. Feeling down, depressed, or hopeless: several days 3. Trouble falling or staying asleep, or sleeping too much: not at all 4. Feeling tired or having little energy: several days 5. Poor appetite or overeating: several days 6. Feeling bad about yourself - or that you are a failure or have let yourself or your family down: not at all 7. Trouble concentrating on things, such as reading the newspaper or watching television: several days 8. Moving or speaking so slowly that other people could have noticed. Or the opposite - being so fidgety or restless that you have been moving around a lot more than usual: not at all 9. Thoughts that you would be better off or of hurting yourself in some way: not at all Total score: 5 Source: Developed by Drs. Mendez Sanz, Shannan Quintanilla, Fuentes Sales and colleagues, with an educational aurelia from [employer]. Thrive Questionnaire Date Thrive assessed: 10/11/25 I am a: Parent/Caregiver What is your living situation today?: I have a steady place to live Within the past 12 months, did the food you bought not last and you didn't have the money to get more?: Never true Within the past 12 months, did you worry whether your food would run out before you got money to buy more?: Never true Do you have trouble paying for medicines?: No Do you have trouble getting transportation to medical appointments?: No Do you have trouble paying your heating and electricity bill?: No Do you have trouble taking care of your child, family member or friend?: No Do you have trouble with day-to-day activities such as bathing, preparing meals, shopping, managing finances, etc.?: No Are you currently unemployed and looking for a job?: No Are you interested in more education?: No Please select the resources that you would like help with: None Currently or been in a relationship where the following occur: No concerns reported THRIVE Score: 0 AUDIT C Alcohol Use Questionnaire (AUDIT-C) 3. How often do you have six or more drinks on one occasion?: Never Total Score: 0 ARSLAN-7 AMB Questionnaire ARSLAN-7 Date ARSLAN - 7 assessed: 04/28/25 Feeling nervous, anxious, or on edge: 0 = Not at all Not being able to stop or control worryin = Not at all Worrying too much about different things: 0 = Not at all Trouble relaxin = Not at all Being so restless that it is hard to sit still: 0 = Not at all Becoming easily annoyed or irritable: 2 = More than half the days Feeling afraid as if something awful might happen: 0 = Not at all Total ARSLAN-7 score (0-4 normal; 5-9 mild; 10-14 moderate; 15-21 severe): 2 Source: Developed by Drs. Mendez Sanz, Shannan Quintanilla, Fuentes Sales and colleagues, with an educational aurelia from [employer]. Review of Systems Narrative Review of Systems - Constitutional: Reports significant weight loss. - Respiratory: Reports nocturnal hypoxemia requiring oxygen at night. - GI: Reports episodes of diarrhea and cramping. - Musculoskeletal: Reports left-sided weakness and throbbing pain in the right hand. - Neurological: Reports frequent falls, tingling and numbness in hands, and numbness in the entire left leg and left arm. - Psychiatric: Reports increased emotionality, crying, and mood swings. - Cardiovascular: Denies history of heart failure. Const Details: Denies chills, Denies fatigue, Denies fever(s), Denies headache(s) and Denies weakness, reports weight loss HEENT Denies change in vision, Denies dizziness, Denies headache(s), Denies hearing loss, Denies nasal congestion, Denies sinus pain, Denies sinus pressure and Denies sore throat Card Denies chest pain, Denies lightheadedness, Denies dyspnea and Denies other (palpitations) Resp Denies cough, Denies dyspnea and Denies wheezing GI Denies abdominal pain, Denies melena, Denies hematochezia, Denies change in bowel habits, Denies dyspepsia and Denies nausea, reports episode of diarrhea Denies hematuria and Denies dysuria Musc Denies abnormal gait, Denies myalgias, Denies arthralgias, Denies numbness and Denies tingling, reports left sided weakness s/p stroke Skin/Breast Left buttock wound Neuro Denies abnormal gait, Denies dizziness, Denies headache(s), Denies memory loss, reports numbness in hands, Denies Sensory deficit (Neuro), reports tingling in hands, and Denies weakness Psych Denies anxiety, Reports depression and Denies memory loss Endo Denies cold intolerance, Denies fatigue, Denies heat intolerance, Denies polydipsia and Denies polyuria Salvador/Lymph Denies easy bleeding and Denies easy bruising Aller/Immun Denies wheezing Physical exam (Primary Care) Vital Signs: Last Vital Signs Pulse 75 10/11/25 15:39 Resp 18 10/11/25 15:39 BP 120/40 L 10/11/25 15:39 Pulse Ox 98 10/11/25 15:39 Oxygen Delivery Method Room Air 10/11/25 15:39 Tobacco/Smoking Status: Tobacco use Status Tobacco use date assessed 10/11/25 10/11/25 15:45 Patient Tobacco Use Status Former Tobacco user 10/11/25 15:45 Tobacco use type Cigarette 10/11/25 15:45 e-Cigarette/Vaping Use Former Use 10/11/25 15:45 PHQ-9: PHQ-9 Score PHQ-9: Total score 5 10/11/25 16:00 Thrive Assessment: Date of Thrive Assessment Date Thrive assessed 10/11/25 10/11/25 15:45 Currently or been in a relationship where the following occur: No concerns reported Narrative Physical Exam - Cardiovascular: Rate is irregular, consistent with atrial fibrillation. - Respiratory: Lungs are clear to auscultation bilaterally. - Abdomen: Soft and non-tender to palpation. - Extremities: Swelling noted in the right hand post-procedure. - Neurological: Left-sided weakness and numbness are present in the arm and leg. - Cranial Nerves: Sensation is symmetric on the face. - Oral Cavity: Tongue protrudes midline. Const Other: General: no acute distress, well developed, alert and awake Nutritional Appearance: well nourished Orientation/consciousness: patient oriented x3 HENMT Head: Yes normocephalic and Yes atraumatic Ears: hearing grossly normal bilaterally and TM's normal bilaterally General nose exam: Normal external nose present and Normal nares present Mouth: Normal oral and palatal mucosa present and moist mucous membranes Eyes Pupils: Equal, round and reactive pupils present and Pupil accommodation reflex normal EOM: EOMs intact bilaterally Neck Neck: Yes normal visual inspection, Yes no lymphadenopathy and Yes trachea midline Thyroid: Thyroid normal Lymphatic: no lymphadenopathy noted Chest Chest palpation & inspection: normal inspection of the chest Resp Effort & Inspection: normal respiratory effort Auscultation: clear to auscultation bilaterally Cardio Rate: regular rate Rhythm: irregular rhythm Heart sounds: S1 normal heart sound present, S2 normal heart sound present, no gallops, no murmurs and no rubs GI Palpation (GI): Abdominal soft and nontender to palpation Auscultation: normal bowel sounds General: Yes no CVA tenderness Back/Spine/Pelvis Back: no CVA tenderness Cervical Spine: cervical ROM normal and No Cervical spine tenderness Thoracic/Lumbar Spine: No lumbar tenderness left sided weakness upper and lower Skin General: warm and dry. Normal skin color. Normal skin turgor Nails: normal Results Reviewed Results Reviewed: Laboratory Tests 10/07/25 09:57 WBC 8.2 RBC 4.73 D Hgb 11.8 L Hct 38.7 D MCV 81.8 MCH 24.9 L MCHC 30.5 L RDW 16.1 H Plt Count 314 D Sodium 144 Potassium 4.4 Chloride 104 Carbon Dioxide 29 Anion Gap 15 BUN 17 H Creatinine 0.75 Estimated GFR > 60 Fasting Glucose 107 H Calcium 10.0 Magnesium 1.2 L* Iron 51 TIBC 313 % Saturation 16 Unsat Iron Binding 262 Total Bilirubin 0.4 AST 28 ALT 17 Alkaline Phosphatase 115 Total Protein 7.1 Albumin 4.2 Triglycerides 95 Cholesterol 124 LDL Cholesterol, Calc 50 HDL Cholesterol 55 Vitamin B12 > 2000 H 25-OH Vitamin D Total 63.7 Folate 12.8 TSH 0.06 L Free T4 1.26 Coding Level of Care Code Est Pt Level 4 (70691) Diagnoses Cerebrovascular accident (CVA), unspecified mechanism I63.9 CVA mechanism: unspecified Essential hypertension I10 Paroxysmal atrial fibrillation I48.0 Type 2 diabetes mellitus with hyperglycemia, with long-term current use of insulin E11.65; Z79.4 Diabetes mellitus assisted insulin use: with intermediate card tender use Diabetes mellitus complication status: with hyperglycemia Hypothyroidism, unspecified type E03.9 Hypothyroidism type: unspecified Hypomagnesemia E83.42 Vitamin B12 deficiency E53.8 Time Spent (min) 41 Assessment & Plan Assessment & Plan (1) CVA (cerebral vascular accident): Code(s): I63.9 - Cerebral infarction, unspecified Category: Medical Qualifiers: CVA mechanism: unspecified Qualified Code(s): I63.9 - Cerebral infarction, unspecified (2) Essential hypertension: Code(s): I10 - Essential (primary) hypertension Category: Medical (3) Paroxysmal atrial fibrillation: Code(s): I48.0 - Paroxysmal atrial fibrillation Category: Medical (4) T2DM (type 2 diabetes mellitus): Code(s): E11.9 - Type 2 diabetes mellitus without complications Category: Medical Qualifiers: Diabetes mellitus assisted insulin use: with intermediate card tender use Diabetes mellitus complication status: with hyperglycemia Qualified Code(s): E11.65 - Type 2 diabetes mellitus with hyperglycemia; Z79.4 - half-way (current) use of insulin (5) Hypothyroidism: Code(s): E03.9 - Hypothyroidism, unspecified Category: Medical Qualifiers: Hypothyroidism type: unspecified Qualified Code(s): E03.9 - Hypothyroidism, unspecified (6) Hypomagnesemia: Code(s): E83.42 - Hypomagnesemia Category: Medical (7) Vitamin B12 deficiency: Code(s): E53.8 - Deficiency of other specified B group vitamins Category: Medical Plan Plan Patient was informed and verbally consented to the use of an ambient scribe for clinic note documentation during this visit. 1. Type 2 Diabetes Mellitus The patient's diabetes is well-controlled, with an HbA1c in the prediabetic range (5.7-5.8%) while on medication. Despite her significant weight loss, her current regimen of metformin 1000 mg twice daily and an injectable will be continued, as discontinuing them would likely cause her blood sugar to rise back into the diabetic range. A prescription for a new blood glucose meter will be sent to her pharmacy as requested. 2. Hypothyroidism The patient's TSH was recently found to be low, indicating over-supplementation, likely due to her recent weight loss. Her levothyroxine dose was appropriately decreased to 100 mcg. Follow-up thyroid labs will be checked in approximately six weeks or after the holidays to assess the response to the dose change. 3. Iatrogenic Hypervitaminosis B12 The patient's vitamin B12 level is elevated, which is attributed to her daily intake of two 1000 mcg B12 gummies. She was advised to reduce her B12 supplement intake to one gummy per day. This will be re-evaluated at a later date. 4. Gastrointestinal Symptoms And Chronic Hypomagnesemia The patient continues to have chronic hypomagnesemia and is being evaluated by GI; a prior endoscopy/colonoscopy showed diverticulosis. She has restarted magnesium 400 mg twice a day after a recent lab test showed a low level. A capsule endoscopy study is pending insurance approval of capsule. A message will be sent to the GI provider to inquire about the status of this capsule before her scheduled follow-up on November 01. 5. History Of Cerebrovascular Accident, Falls, And Depression The patient has multiple complex chronic conditions including residual effects from strokes, frequent falls, and depression with mood lability. She is appropriately followed by neurology and cardiology, receives PT/OT at home, and has home health aide support. No changes to her current management for these conditions were made at this visit. 6. Follow-Up The patient will return for a follow-up visit in approximately four months, after the holidays. An order for follow-up labs will be placed to be completed before the next visit. Medication refills will be managed as requested by the pharmacy. 7. HTN bp within goal reinforced low salt diet Discussion Notes I had a detailed discussion with the patient and her caregiver regarding her multiple chronic health issues. We discussed her diabetes management, and I explained that although her HbA1c is well-controlled, it is due to her current medications, and stopping them would likely lead to hyperglycemia. I addressed her elevated vitamin B12 level and recommended reducing her daily supplement from two gummies to one. I reviewed the recent change in her levothyroxine dose to 100 mcg, explaining it was adjusted due to a low TSH, and we will recheck levels in about 6 weeks. 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 We agreed on a follow-up appointment in approximately four months, after the holidays, with lab work to be completed beforehand. A new prescription for a blood glucose meter will be sent to her pharmacy. Patient Instructions - Reduce your vitamin B12 supplement from two gummies to one gummy each day. - For the pain and swelling in your hand, you can take Tylenol, use ice, and keep it elevated. - Do not get the bandage on your hand wet and do not unwrap it until Thursday. - Continue taking your other medications for diabetes and thyroid as prescribed. - We will send a prescription for a new blood sugar testing meter to your pharmacy. - Our office will contact your GI doctor to check on the status of your planned capsule test. - Please schedule a follow-up appointment to be seen again in about four months. - You will need to have blood work done before your next visit. Orders: Orders Hemoglobin A1c 4 Months E03.9 - Hypothyroidism, unspecified, E11.65 - Type 2 diabetes mellitus with hyperglycemia, E55.9 - Vitamin D deficiency, unspecified, E66.9 - Obesity, unspecified, E78.2 - Mixed hyperlipidemia, E78.5 - Hyperlipidemia, unspecified, E83.42 - Hypomagnesemia, I10 - Essential (primary) hypertension, I48.0 - Paroxysmal atrial fibrillation, I63.9 - Cerebral infarction, unspecified, Z79.4 - half-way (current) use of insulin Complete Blood Count Auto Diff 4 Months E03.9 - Hypothyroidism, unspecified, E11.65 - Type 2 diabetes mellitus with hyperglycemia, E55.9 - Vitamin D deficiency, unspecified, E66.9 - Obesity, unspecified, E78.2 - Mixed hyperlipidemia, E78.5 - Hyperlipidemia, unspecified, E83.42 - Hypomagnesemia, I10 - Essential (primary) hypertension, I48.0 - Paroxysmal atrial fibrillation, I63.9 - Cerebral infarction, unspecified, 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 Comprehensive Colbert. Panel Fast 4 Months E03.9 - Hypothyroidism, unspecified, E11.65 - Type 2 diabetes mellitus with hyperglycemia, E55.9 - Vitamin D deficiency, unspecified, E66.9 - Obesity, unspecified, E78.2 - Mixed hyperlipidemia, E78.5 - Hyperlipidemia, unspecified, E83.42 - Hypomagnesemia, I10 - Essential (primary) hypertension, I48.0 - Paroxysmal atrial fibrillation, I63.9 - Cerebral infarction, unspecified, Z79.4 - half-way (current) use of insulin Lipid Panel 4 Months E03.9 - Hypothyroidism, unspecified, E11.65 - Type 2 diabetes mellitus with hyperglycemia, E55.9 - Vitamin D deficiency, unspecified, E66.9 - Obesity, unspecified, E78.2 - Mixed hyperlipidemia, E78.5 - Hyperlipidemia, unspecified, E83.42 - Hypomagnesemia, I10 - Essential (primary) hypertension, I48.0 - Paroxysmal atrial fibrillation, I63.9 - Cerebral infarction, unspecified, Z79.4 - half-way (current) use of insulin Vitamin D 25-OH Total 4 Months E03.9 - Hypothyroidism, unspecified, E11.65 - Type 2 diabetes mellitus with hyperglycemia, E55.9 - Vitamin D deficiency, unspecified, E66.9 - Obesity, unspecified, E78.2 - Mixed hyperlipidemia, E78.5 - Hyperlipidemia, unspecified, E83.42 - Hypomagnesemia, I10 - Essential (primary) hypertension, I48.0 - Paroxysmal atrial fibrillation, I63.9 - Cerebral infarction, unspecified, 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 Magnesium 4 Months E03.9 - Hypothyroidism, unspecified, E11.65 - Type 2 diabetes mellitus with hyperglycemia, E55.9 - Vitamin D deficiency, unspecified, E66.9 - Obesity, unspecified, E78.2 - Mixed hyperlipidemia, E78.5 - Hyperlipidemia, unspecified, E83.42 - Hypomagnesemia, I10 - Essential (primary) hypertension, I48.0 - Paroxysmal atrial fibrillation, I63.9 - Cerebral infarction, unspecified, 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 Vitamin B12 and Folate 4 Months E03.9 - Hypothyroidism, unspecified, E11.65 - Type 2 diabetes mellitus with hyperglycemia, E55.9 - Vitamin D deficiency, unspecified, E66.9 - Obesity, unspecified, E78.2 - Mixed hyperlipidemia, E78.5 - Hyperlipidemia, unspecified, E83.42 - Hypomagnesemia, I10 - Essential (primary) hypertension, I48.0 - Paroxysmal atrial fibrillation, I63.9 - Cerebral infarction, unspecified, 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 UA CC w/rflx Micro + Cult 4 Months E03.9 - Hypothyroidism, unspecified, E11.65 - Type 2 diabetes mellitus with hyperglycemia, E55.9 - Vitamin D deficiency, unspecified, E66.9 - Obesity, unspecified, E78.2 - Mixed hyperlipidemia, E78.5 - Hyperlipidemia, unspecified, E83.42 - Hypomagnesemia, I10 - Essential (primary) hypertension, I48.0 - Paroxysmal atrial fibrillation, I63.9 - Cerebral infarction, unspecified, 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9 - Vitamin D deficiency, unspecified, E66.9 - Obesity, unspecified, E78.2 - Mixed hyperlipidemia, E78.5 - Hyperlipidemia, unspecified, E83.42 - Hypomagnesemia, I10 - Essential (primary) hypertension, I48.0 - Paroxysmal atrial fibrillation, I63.9 - Cerebral infarction, unspecified, 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
--- OUTSIDE RECORDS SUMMARY | 2025-10-12 04:00 | XMS_ITS | Clinical Summary ---
Author Organization [facility] Address [address] [place] [address] Care Team Providers Care Tire Installer Name Role Phone Allen Cortés MD Primary Care Provider [phone] Allergies No known active allergies Medications ezetimibe [...] Years Used Date Smoking Tobacco: Never Assessed [facility] Utilities Answer Date Recorded In the [...] A1C 7.0(H) <5.7 % 06/27/2024 9:07 AM [facility] Comment: A1c% Interpretation 5.7 - 6.0 Increase risk of diabetes 6.1 - 6.4 Higher risk of diabetes > or = 6.5 Consistent with diabetes Diabetes Care, 33(Supp 1):S1-S61, 2010 Estimated Average Glucose 154 mg/dL 06/27/2024 9:07 AM [facility] Blood Blood specimen / Unknown 06/27/2024 8:21 AM EDT 06/27/2024 8:32 AM EDT Paul Ospina MD LAB [place]LOOD [place] [address], [place] [address] * (ABNORMAL) Lipid Panel (06/27/2024 8:21 AM EDT) Cholesterol, Total 141 <200 mg/dL 2023 9:18 AM [facility] Triglycerides 169(H) <150 mg/dL 06/27/2024 9:18 AM [facility] Cholesterol, HDL 58 >39 mg/dL 06/27/20 9:18 AM [facility] Estimated LDL 49 <130 mg/dL 06/27/2024 9:18 AM [facility] Comment: NCEP Guidelines: < 100 mg/dL Optimal 100 - 129 mg/dL Near Optimal/Above Optimal 130 - 159 mg/dL Borderline High 160 - 189 mg/dL High >/= 190 mg/dL Very High Cholesterol/HDL Ratio 2.4 0.0 - 5.0 Ratio 06/27/2024 9:18 AM [facility] Comment: Relative Risk Ratio - Male Ratio - Female 0.5 3.4 3.3 1.0 5.0 4.4 2.0 9.6 7.1 3.0 23.4 11.0 Blood (Plasma/Serum) 06/27/2024 8:21 AM EDT 06/27/2024 8:32 AM EDT Paul Ospina MD LAB BLOOD ORDERABLES Final Result [address] [address], [address] [address] from Last 3 Months or Most Recently Relevant to Health Maintenance Insurance MEDICARE PART A & B [facility] MEDICARE Advance Directives * DNR (Latest Code Status on File) Date Activated Date Inactivated Comments 06/27/2024 4:12 PM Question Answer Comments Decision thoroughly discussed with: Gail ent arrived with valid State of [place] DNR Transfer form * Full Code Date Activated Date Inactivated Comments 06/26/2024 8:41 PM 06/27/2024 4:12 PM Care Teams Tire Installer Relationship Specialty Start Date End Date Allen Cortés MD [address] [place] [id number] PCP - General 06/26/24
--- OUTSIDE RECORDS SUMMARY | 2025-10-12 04:01 | XMS_ITS | Clinical Summary ---
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 It is not the complete legal health record.[facility]
== END 2025-10-11 16:43 | disposition home or self-care (01) ==
LOC: HO.HMCH 15:29
PROVIDERS: PCP Internal Medicine
DX: I63.9 Cerebral infarction, unspecified (principal); I48.0 Paroxysmal atrial fibrillation; E11.65 Type 2 diabetes mellitus with hyperglycemia; Z79.4 Long term (current) use of insulin; I10 Essential (primary) hypertension; E03.9 Hypothyroidism, unspecified; E83.42 Hypomagnesemia; E53.8 Deficiency of other specified B group vitamins

== ENCOUNTER → 2025-10-11 15:28 | Outpatient (BNVA) | payer MEDICARE, SELFPAY | PROVIDERS: PCP Internal Medicine | DX: E11.65 Type 2 diabetes mellitus with hyperglycemia (principal); I10 Essential (primary) hypertension; I48.0 Paroxysmal atrial fibrillation; E03.9 Hypothyroidism, unspecified; E83.42 Hypomagnesemia; E53.8 Deficiency of other specified B group vitamins; Z79.4 Long term (current) use of insulin; Z86.73 Personal history of transient ischemic attack (TIA), and cerebral infarction without residual deficits | CPT/HCPCS: 96127; 99212 ==

== ENCOUNTER 2025-10-12 14:00 | Emergency (ER) | payer MEDICARE, SELFPAY ==
--- OUTSIDE RECORDS SUMMARY | 2024-07-13 09:30 | XMS_ITS ---
[facility] Address [address] [place] [phone] Care Team Providers Care Milk Pickup Truck Driver Name Role Phone Milana NATARAJAN, Allen Primary Care Provider Desire Arias [phone] Encounters Encounter Location Date Provider Diagnosis [address] [address] 07/13/2024 Desire Ashford Plan Of Treatment No Information Progress Notes * Naty CERVANTES LDOB: [birth year] (79 yo F)Acc No.[id number]:07/13/2024 Progress Note Patient: Naty WOLF Provider: Caitlin Ashford DPM :1945 A ge:78 Y S ex:Female Date:07/13/2024 Address:[address] [place], [place] [id number] Pcp:Allen Cortés MD Subjective: * Chief Complaints: * * Medical History: Objective: * Vitals: Assessment: Plan: * Treatment: * Images: * The named appointment provid er may or may not be the originator of this progress note, and it is not deemed complete until electronically signed by the appointment provider. Sign off status: Pending * Provider: Caitlin Ashford DPM Date: 0 07/13/2024 Generated for Peri gautam/Falesterg/eTransmitting on: 12/12/2024 08:25 PM EST
--- NOTE | 2025-10-12 | ECG_ITS ---
Test Reason : FALL Blood Pressure : */* mmHG Vent. Rate : 66 BPM Atrial Rate : 66 BPM P-R Int : 178 ms QRS Dur : 90 ms QT Int : 380 ms P-R-T Axes : 80 -31 114 degrees QTcB Int : 398 ms Normal sinus rhythm Left axis deviation Moderate voltage criteria for LVH, may be normal variant ( R in aVL , Jose product ) Nonspecific T wave abnormality Abnormal ECG When compared with ECG of 14-Jun-2025 19:46, Nonspecific T wave abnormality now evident in Anterolateral leads Referred By: Generic ED Physician Electronically Signed By: DANNY JACINTO
--- NOTE | ~2025-10-12 | CT_ITS ---
CLINICAL HISTORY: poss active bleeding? CT pelvis with contrast Comparison: CT - CT PELVIS W IV CON - 10/12/25 17:[address]/REG/SR - CT PELVIS WITHOUT IV CONTRAST - 10/12/25 15:02 EST Findings: There is a high density right gluteal focus as before, currently measuring 12 cm diameter. There is a 9 mm focus of enhancement at the anterolateral aspect of the lesion, consistent with active bleeding. Moderate surrounding fat stranding is present. Left anterior bowel containing pelvic hernia measuring 7 cm. No evidence of associated bowel strangulation or obstruction. No adenopathy. Urinary bladder is within normal limits. Appendix is not seen. The bones are intact. IMPRESSION: 1. Active bleeding within the right gluteal hematoma which is increased in size. 2. Bowel containing anterior pelvic wall hernia without strangulation or obstruction. This document has been electronically signed by: Aric Ahuja MD on 10/12/2025 18:21:15
--- NOTE | ~2025-10-12 | CT_ITS ---
EXAMINATION: CT HEAD WITHOUT CONTRAST CLINICAL INFORMATION: Head injury, on anticoagulation COMPARISON: July 03, 2025 TECHNIQUE: Contiguous axial imaging was performed from the skull base to vertex without intravenous administration of contrast. This CT examination was performed using dose optimization techniques as appropriate, variously including the following: *Automated exposure control *Adjustment of mA and/or kV according to patient size (this includes techniques or standardized protocols for targeted exams where dose is matched to indication/reason for exam; i.e. extremities or head) *Use of iterative reconstruction technique FINDINGS: There is moderate global atrophy. Again seen is encephalization the posterior right frontal lobe consistent with prior posterior MCA territory infarct. Periventricular hypodensities are again seen. There is no acute ischemic change. There is no intracranial hemorrhage. There is no mass-effect or midline shift. Basal cisterns and ventricles are within normal limits for age/cerebral volume. Orbits are symmetrical and unremarkable. Paranasal sinuses and mastoid air cells are pneumatized. There are no bony abnormalities. CT/CT head/brain wo IV con IMPRESSION: No acute intracranial abnormality. Global atrophy, chronic white matter changes, and remote posterior right MCA territory infarct. Electronically signed by: James Ramos MD 10/12/2025 03:33 PM EST
--- NOTE | ~2025-10-12 | CT_ITS ---
EXAMINATION: CT PELVIS WITHOUT CONTRAST CLINICAL INFORMATION: Suspect large right buttock hematoma . Patient on anticoagulation. COMPARISON: None available. TECHNIQUE: Helical scanning was performed with submillimeter collimation through the pelvis. Sagittal and coronal multiplanar 2-D reconstructions were obtained. This CT examination was performed using dose optimization techniques as appropriate, variously including the following: *Automated exposure control *Adjustment of mA and/or kV according to patient size (this includes techniques or standardized protocols for targeted exams where dose is matched to indication/reason for exam; i.e. extremities or head) *Use of iterative reconstruction technique FINDINGS: In the right gluteal subcutaneous soft tissues, is a collection measuring 10.4 x 5.3 x 7.4 cm (transverse, AP, length). This has mixed hyperattenuation and hypoattenuation. Findings are consistent with a hematoma in this clinical setting. There is extensive prominent stranding in the subcutaneous tissues of the right hip. Mild bilateral hip joint arthritis. No evidence of acute fracture or dislocation. Symphysis pubis degeneration. No acute pelvic fractures otherwise identified. There is a prominent bony exostosis/spurring from the right iliac wing. Bones are osteopenic. Bilateral ischial tuberosity spurring. Prominent stool in the rectum. No free fluid in the pelvis. No acute bowel findings identified. CT/CT pelvis wo IV con IMPRESSION: Heterogeneous collection in the right gluteal subcutaneous soft tissues measuring 10.4 x 5.3 x 7.4 cm. In this clinical context, this likely represents a hematoma. Extensive subcutaneous stranding of the right hip. Mild bilateral hip joint arthritis. No evidence of acute fracture is seen. Electronically signed by: Jassi Leblanc MD 10/12/2025 03:31 PM [facility]
[2025-10-12 14:09] VITALS: BP 127/55; PULSE 64; O2SAT 99
[2025-10-12 14:12] VITALS: BP 109/44; PULSE 65; TEMP 36.6; O2SAT 100
[2025-10-12 14:19] VITALS: BP 112/44; PULSE 68; RESP 12; TEMP 36.6; O2SAT 98; BMI 28.3
--- NOTE | 2025-10-12 14:26 | ED.GENADULT ---
HPI - General Adult General Chief complaint: Fall Stated complaint: [facility] fall, hip pain 09/01 Time Seen by Provider: 10/12/25 14:18 History of Present Illness ED Provider: Maddy MEDEL narrative: The patient is a 79-year-old woman. She is on apixaban because of a history of atrial fibrillation. She was at home today. She fell at home landing primarily on her right buttock. She also slightly hit her head but had no loss of consciousness. A home health aide was at home at the time who helped her get off the floor. The injury occurred at around 11:30 AM today. The home health aide suggested that she go to the hospital the but the patient was not interested in going to the hospital. The home health aide helped her off the floor and was able to get her into a chair. Several hours later however the patient had increasing swelling in the right buttock and worsening pain and they finally called an ambulance and the patient was brought to the hospital. She has no significant neck pain. No chest pain. No shortness of breath. No abdominal pain, no nausea or vomiting. Related Data Home Medications ?Medication ?Instructions ?Recorded ?Confirmed cyanocobalamin (vitamin B-12) 250 500 mcg PO DAILY 12/16/24 10/11/25 mcg tablet gabapentin 300 mg capsule 300 mg PO BEDTIME 04/03/25 10/11/25 zinc gluconate 50 mg tablet 50 mg PO DAILY 08/16/25 10/11/25 Previous Rx's ?Medication ?Instructions ?Recorded pen needle, diabetic 32 gauge x #100 ea 11/05/2311/26 (Novofine 32) Stair lift #1 ea 01/19/24 blood-glucose meter (FreeStyle #1 ea 12/07/24 Lite Meter kit) blood sugar diagnostic #100 ea 01/30/25 apixaban 5 mg tablet (Eliquis) 5 mg PO BID #60 tabs 05/18/25 liraglutide 0.6 mg/0.1 mL (18 mg/3 1.2 mg (0.2 mL) subcut DAILY 90 07/27/25 mL) subcutaneous pen injector days #18 mL Oxygen mask #2 ea 08/16/25 sertraline 50 mg tablet 50 mg PO BEDTIME 90 days #90 tabs 09/13/25 levothyroxine 100 mcg tablet 100 mcg PO DAILY #30 tabs 10/08/25 (Levoxyl) magnesium oxide 400 mg (241.3 mg 800 mg (2 x 400 mg (241.3 mg 10/08/25 magnesium) tablet magnesium)) PO BID 90 days #360 tabs atorvastatin 80 mg tablet 80 mg PO BEDTIME #90 tabs 10/11/25 ezetimibe 10 mg tablet 10 mg PO BEDTIME #90 tabs 10/11/25 metformin 1,000 mg tablet 1,000 mg PO BID #180 tabs 10/11/25 Allergies Allergy/AdvReac Type Severity Reaction Status Date / Time amoxicillin (Augmentin) Allergy Unknown hives Verified 10/12/25 14:25 clavulanic acid (Augmentin) Allergy Unknown hives Verified 10/12/25 14:25 furosemide Allergy Unknown unknown Verified 10/12/25 14:25 latex (LATEX) Allergy Unknown UNKNOWN Verified 10/12/25 14:25 lisinopril Allergy Unknown Unknown Verified 10/12/25 14:25 oxycodone (Percocet) Allergy Unknown Stomach Verified 10/12/25 14:25 upset tramadol Allergy Unknown Stomach Verified 10/12/25 14:25 uspet Review of Systems Review of Systems: Yes all other systems are reviewed and are negative [facility] Past Medical History Medical History Acid reflux Decreased appetite Carpal tunnel syndrome Frequent falls Paroxysmal atrial fibrillation Orthostatic hypotension Anemia Buttock wound Obesity (BMI 30-39.9) Neuropathy Acquired hypothyroidism Mixed hyperlipidemia Essential hypertension Atrial fibrillation Hypothyroidism Obesity Type 2 diabetes mellitus with morbid obesity Annual physical exam Vitamin D deficiency HLD (hyperlipidemia) T2DM (type 2 diabetes mellitus) Diabetes mellitus Hypertension Surgical History H/O hysterectomy for benign disease History of vitrectomy History of surgery History of colonoscopy (~01/28/19) History of appendectomy History of cholecystectomy S/P JOSIE (total abdominal hysterectomy) Family History Family History Father Diabetes Mother CHF (congestive heart failure) CVD (cardiovascular disease) Brother HIV (human immunodeficiency virus infection) Maternal Aunt Stomach cancer Social History Social History Household Members: Children Household Members Other:: alternating among 2 daughters and 1 son Housing: House Do you presently have visiting nurse or other home services: No Alcohol intake: current Patient Tobacco Use Status: Former Tobacco user Tobacco use type: Cigarette Years Smoked: 30, started at 10, about 15 cig a day, e-Cigarette/Vaping Use: Former Use Second Hand Smoke Exposure: Yes Advance Directives: Yes Advance Directives on File: Yes Advance Directives Date on File: 12/15/23 service: No Current occupational status: retired Current occupational exposures/hazards: No Cognitive needs: No Hearing needs: No Vision needs: No Physical Exam ED Vital Signs: Vital Signs - 24 hr 10/12/25 14:12 10/12/25 14:19 10/12/25 17:27 Temperature 97.8 F 97.8 F Pulse Rate 65 68 Respiratory Rate 12 18 Blood Pressure 109/44 L 112/44 L Pulse Oximetry 100 98 Oxygen Delivery Method Room Air Room Air 10/12/25 19:15 Temperature 98.3 F Pulse Rate 62 Respiratory Rate 11 L Blood Pressure 102/37 L Pulse Oximetry 96 Oxygen Delivery Method Room Air BMI result Body Mass Index 28.3 Const Other: The patient is a 79-year-old woman who was lying on her left side for comfort. She did not seem in acute distress. HENMT Other: Face is symmetrical. No raccoon eyes. No schroeder sign. No obvious signs of trauma to the face. Eyes Other: Pupils are round equal, conjunctivae are clear, extraocular movements intact Neck Other: No posterior midline C-spine tenderness. She is moving her neck easily without apparent discomfort. Her C-spine seems clinically clear. Resp Effort & Inspection: normal respiratory effort Auscultation: clear to auscultation bilaterally Cardio Rate: regular rate Rhythm: regular rhythm Heart sounds: S1 normal heart sound present and S2 normal heart sound present GI Other: Abdomen is soft and nontender Skin Other: There is bruising apparent to the skin of the right gluteus where there is a very large amount of firm soft tissue swelling. Neuro Other: The patient is very hard of hearing. Otherwise she is awake and alert with a normal mental status. Medications Administered Discontinued Medications Generic Name Dose Route Start Last Admin Trade Name Freq PRN Reason Stop Dose Admin Prothrombin Complex Concent ( 80 mls @ 480 mls/hr 10/12/25 15:53 10/12/25 16:47 Human) 2,000 unit/ IV IV 10/12/25 16:02 Infused Miscellaneous Supplies .Q10M ONE Infusion Morphine Sulfate 4 mg 10/12/25 17:13 10/12/25 17:27 Morphine Sulfate 4 Mg/Ml Cartridge IVPUSH 10/12/25 17:14 4 mg ONCE ONE Administration Protocol Ondansetron HCl 4 mg 10/12/25 17:13 10/12/25 17:27 Ondansetron Hcl 4 Mg/2 Ml Vial IVPUSH 10/12/25 17:14 4 mg ONCE ONE Administration Medical Decision Making Medical Decision Making [facility] Narrative: The patient is a 79-year-old woman who fell this morning and subsequently had a great deal of pain and swelling in the right buttock. Clinically she seems to have a large hematoma. She is anticoagulated on apixaban because of atrial fibrillation. She is currently in sinus rhythm. She was given IV for factor PCC (Kcentra) to reverse the effects of the apixaban. A CT scan of the pelvis was obtained, initially without contrast. This showed a large hematoma. Also a head CT was done that was negative. I felt that the hematoma seemed to be growing and so we obtained a 2nd CT of the pelvis, this time with IV contrast. This showed enlargement of the hematoma and signs of active extravasation. I contacted the trauma surgeon at [facility], Dr. Soto. The patient will be transferred to the emergency room at [facility] for a trauma consult regarding this injury. Lab Data 10/12/25 14:40 10/12/25 14:40 Labs: Lab Results 10/12/25 10/12/25 Range/Units 14:40 19:07 WBC 12.0 H (4.8-10.8) X10*3/uL RBC 4.06 L (4.20-5.50) X10*6/uL Hgb 10.3 L (12.0-16.0) g/dl Hct 33.4 L (37.0-47.0) % MCV 82.3 (80.0-98.0) fL MCH 25.4 L (27.0-33.0) pg MCHC 30.8 L (31.0-35.0) g/dl RDW 16.2 H (11.0-16.0) % Plt Count 251 (160-400) X10*3/uL MPV 10.3 (9.4-12.3) fL Immature Gran % (Auto) 0.4 (0.0-0.4) % Neut % (Auto) 78.0 H (45-73) % Lymph % (Auto) 14.4 L (20-40) % Maverick % (Auto) 6.1 (2-11) % Eos % (Auto) 0.8 (0-4) % Baso % (Auto) 0.3 (0-2) % Lymph # (Auto) 1.7 (1.2-4.9) X10*3/uL Maverick # (Auto) 0.7 (0.1-1.2) X10*3/uL Eos # (Auto) 0.1 (0.0-0.4) X10*3/uL Baso # (Auto) 0.0 (0.0-0.2) X10*3/uL Abs Immat Gran (auto) 0.05 H (0.00-0.03) X10*3/uL Absolute Neuts (auto) 9.4 H (2.0-8.3) x10*3/uL Absolute Nucleated RBC 0.000 (0.0-0.012) X10*3/uL Nucleated RBC % (auto) 0.0 (0.0-0.2) /100WBC Sodium 141 (135-145) mmol/L Potassium 4.4 (3.3-5.1) mmol/L Chloride 105 (96-108) mmol/L Carbon Dioxide 25 (22-29) mmol/L Anion Gap 15 (12-20) BUN 19 H (9-16) mg/dL Creatinine 0.64 (0.5-1.4) mg/dL Estim Creat Clear Calc 62.8 Estimated GFR > 60 POC Glucose 82 (60-115) mg/dL Random Glucose 88 (60-115) mg/dL Calcium 9.3 D (8.4-10.2) mg/dL Total Bilirubin 0.4 (0.0-1.0) mg/dL AST 21 (5-31) U/L ALT 12 (0-31) U/L Alkaline Phosphatase 93 (39-117) U/L Total Protein 6.2 L (6.5-8.0) g/dL Albumin 3.7 (3.5-5.0) g/dL Critical Care Time Critical Care Time Critical Care Time: Yes Total Critical Care Time: 35 Attestation: The patient was critically ill with a high probability of imminent or life-threatening deterioration. ?I spent greater than 30 minutes of discontinuous time evaluating the patient, delivering critical care at the bedside, discussing evaluating data with consultants. ?Critical care time does not include time spent performing separately billable procedures or teaching. ?Time spent performing critical care with 35 minutes. Discharge Plan Discharge Clinical Impression: Hematoma of right buttock, Chronic anticoagulation, Fall, Paroxysmal atrial fibrillation Patient Disposition: [facility] Transfer Details: [facility] Emergency room, Dr. Soto Prescriptions: No Action (DME) pen needle, diabetic [Novofine 32] 32 gauge x 1/4 needle See Rx Instructions .Route Qty: 100 0RF Rx Instructions: As directed up to three times per day (DME) Stair lift See Rx Instructions .Route .MEDSUPPLY Qty: 1 0RF Rx Instructions: As directed (DME) blood sugar diagnostic Strip See Rx Instructions .ROUTE .MEDSUPPLY Qty: 100 11RF Rx Instructions: FREESTYLE LITE TEST STRIPS TO CHECK THREE TIMES A DAY Eliquis 5 mg tablet 5 mg PO BID Qty: 60 4RF liraglutide 0.6 mg/0.1 mL (18 mg/3 mL) pen injector 1.2 mg subcut DAILY 90 Days Qty: 18 1RF (DME) Oxygen mask See Rx Instructions .Route .MEDSUPPLY Qty: 2 5RF Rx Instructions: As directed magnesium oxide 400 mg (241.3 mg magnesium) tablet 800 mg PO BID 90 Days Qty: 360 0RF levothyroxine [Levoxyl] 100 mcg tablet 100 mcg PO DAILY Qty: 30 3RF cyanocobalamin (vitamin B-12) 250 mcg Tablet 500 mcg PO DAILY gabapentin 300 mg capsule 300 mg PO BEDTIME (DME) blood-glucose meter [FreeStyle Lite Meter] Kit See Rx Instructions .ROUTE .MEDSUPPLY Qty: 1 0RF Rx Instructions: As directed sertraline 50 mg tablet 50 mg PO BEDTIME 90 Days Qty: 90 3RF zinc gluconate 50 mg tablet 50 mg PO DAILY atorvastatin 80 mg tablet 80 mg PO BEDTIME Qty: 90 3RF ezetimibe 10 mg tablet 10 mg PO BEDTIME Qty: 90 3RF metformin 1,000 mg tablet 1,000 mg PO BID Qty: 180 3RF Print Language: [place] Irish
[2025-10-12 14:45] LABS: MANUAL DIFF FLAG NO
[2025-10-12 14:46] LABS: Hematocrit 33.4 % (37.0-47.0); Hemoglobin 10.3 g/dl (12.0-16.0); Imm Gran Abs Auto 0.05 X10*3/uL (0.00-0.03); Imm Gran Pct Auto 0.4 % (0.0-0.4); Lymphocytes Absolute Auto 1.7 X10*3/uL (1.2-4.9); Mean Corpuscular HGB Conc 30.8 g/dl (31.0-35.0); Mean Corpuscular Hemoglobin 25.4 pg (27.0-33.0); Mean Corpuscular Volume 82.3 fL (80.0-98.0); NRBC Abs Auto 0.000 X10*3/uL (0.0-0.012); NRBC Pct Auto 0.0 /100WBC (0.0-0.2); Platelet Count 251 X10*3/uL (160-400); Red Blood Count 4.06 X10*6/uL (4.20-5.50); White Blood Count 12.0 X10*3/uL (4.8-10.8)
[2025-10-12 15:03] LABS: Alanine Aminotransferase 12 U/L (0-31); Albumin Level 3.7 g/dL (3.5-5.0); Alkaline Phosphatase 93 U/L (39-117); Anion Gap 15 (12-20); Aspartate Amino Transferase 21 U/L (5-31); Blood Urea Nitrogen 19 mg/dL (9-16); Calcium 9.3 mg/dL (8.4-10.2); Carbon Dioxide 25 mmol/L (22-29); Chloride 105 mmol/L (96-108); Creatinine Clr Calc Pharmacy 62.8; Estimated Glomerular Filt Rate > 60; Potassium 4.4 mmol/L (3.3-5.1); Sodium 141 mmol/L (135-145); Total Protein 6.2 g/dL (6.5-8.0)
--- NOTE | 2025-10-12 15:57 | PC.NURSE ---
Pharmacy preparing KCentra at this time. To be administered upon arrival to ED unit.
[2025-10-12] MEDS: Hum Prothrombin Cplx(PCC)4Fact 2,000 UNIT in Container,Empty 0 ML 480 UNIT IV (16:37)
[2025-10-12 17:27] VITALS: RESP 18
--- NOTE | 2025-10-12 18:59 | PC.NURSE ---
Dr. Castañeda to bedside to speak with patient & family regarding plan of care. Awaiting response/call back from [facility] regarding possible transfer. NPO until further notice/update. Care ongoing by this RN.
--- NOTE | 2025-10-12 19:05 | PC.NURSE ---
Ice pack applied to right hip/buttocks. Large hematoma noted. Pillow also placed under right hip for comfort. Care ongoing by this RN.
[2025-10-12 19:13] LABS: Glucose, Whole Blood 82 mg/dL (60-115)
[2025-10-12 19:15] VITALS: BP 102/37; PULSE 62; RESP 11; TEMP 36.8; O2SAT 96
[2025-10-12 20:16] VITALS: BP 102/37; PULSE 62; RESP 12; TEMP 36.8; O2SAT 96
--- OUTSIDE RECORDS SUMMARY | 2025-10-12 20:26 | XMS_ITS | Encounter Summary ---
Author Organization [facility] Address [address] [place] [address] Care Team Providers Care Devil Dog Name Role Phone Bruce Welch MD Primary Care Provider [phone] Encounter Details Date Type Department Care Team (Late st Contact Info) Description 06/19/[address] [facility] - Main Lab 299 [facility] [place] [address] Bruce Welch MD [address] [place], [place] [id number] Anemia, unspecified; Type 2 diabetes mellitus without [...] unspecified Type 2 diabetes mellitus without complications ([facility] V24, [facility] V28) Hyperlipidemia, unspecified Hypothyroidism, unspecified Magnesium deficiency Vitamin B12 deficiency anemia, unspecified Vitamin D deficiency, unspecified LIPID PANEL WITH REFLEX TO DIRECT LDL Routine 06/19/2025 5:26 AM EDT Anemia, unspecified Type 2 diabetes mellitus without complications ([facility] V24, [facility] V28) Hyperlipidemia, unspecified Hypothyroidism, unspecified Magnesium deficiency Vitamin B12 deficiency anemia, unspecified Vitamin D deficiency, unspecified VITAMIN D 25 HYDROXY Routine 06/19/2025 5:26 AM EDT Anemia, unspecified Type 2 diabetes mellitus without complications ([facility] V24, [facility] V28) Hyperlipidemia, unspecified Hypothyroidism, unspecified Magnesium deficiency Vitamin B12 deficiency anemia, unspecified Vitamin D deficiency, unspecified COMPLETE BLOOD COUNT Routine 06/19/2025 5:26 AM EDT Anemia, unspecified Type 2 diabetes mellitus without complications ([facility] V24, [facility] V28) Hyperlipidemia, unspecified Hypothyroidism, unspecified Magnesium deficiency Vitamin B12 deficiency anemia, unspecified Vitamin D deficiency, unspecified TRIIODOTHYRONINE FREE Routine 06/19/2025 5:26 AM EDT Anemia, unspecified Type 2 diabetes mellitus without complications ([facility] V24, [facility] V28) Hyperlipidemia, unspecified Hypothyroidism, unspecified Magnesium deficiency Vitamin B12 deficiency anemia, unspecified Vitamin D deficiency, unspecified MAGNESIUM Routine 06/19/2025 5:26 AM EDT Anemia, unspecified Type 2 diabetes mellitus without complications ([facility] V24, [facility] V28) Hyperlipidemia, unspecified Hypothyroidism, unspecified Magnesium deficiency Vitamin B12 deficiency anemia, unspecified Vitamin D deficiency, unspecified COMPREHENSIVE METABOLIC PANEL Routine 06/19/2025 5:26 AM EDT Anemia, unspecified Type 2 diabetes mellitus without complications ([facility] V24, [facility] V28) Hyperlipidemia, unspecified Hypothyroidism, unspecified Magnesium deficiency Vitamin B12 deficiency anemia, unspecified Vitamin D deficiency, unspecified documented in this encounter Results * (ABNORMAL) Triiodothyronine free (06/19/2025 5:26 AM EDT) T3, Free 193(L) 230 - 420 pcg/dL LAB CHEMISTRY METHOD 06/19/2025 7:36 PM EDT [facility] Blood Venous blood specimen / Unknown Venipuncture / Unknown 06/19/2025 5:26 AM EDT 06/19/2025 10:47 AM EDT us Bruce Welch MD LAB BLOOD ORDERABLES Final Resul t Performing Organization Address City/[facility]/ZIP Co de Phone Number [facility] [address] [place] [address], [place] [phone] * Free thyroxine with reflex to free triiodothyronine (06/19/2025 5:26 AM EDT) Free T4 1.40 0.70 - 1.80 ng/dL LAB CHEMISTRY METHOD 06/19/2025 6:04 PM EDT [facility] Blood Venous blood specimen / Unknown Venipuncture / Unknown 06/19/2025 5:26 AM EDT 06/19/2025 10:47 AM EDT us Bruce Welch MD LAB BLOOD ORDERABLES Final Resul t Performing Organization Address City/[facility]/ZIP Co de Phone Number [facility] [address] [place] [address], [place] [phone] * Vitamin D 25 hydroxy (06/19/2025 5:26 AM EDT) Vit D, 25-Hydroxy 72.3 30.0 - 80.0 ng/mL LAB CHEMISTRY METHOD 06/19/2025 1:24 PM EDT [facility] Blood Venous blood specimen / Unknown Venipuncture / Unknown 06/19/2025 5:26 AM EDT 06/19/2025 10:47 AM EDT us Bruce Welch MD LAB BLOOD ORDERABLES Final Resul t Performing Organization Address City/[facility] Co de Phone Number [facility] [address] [place] [address], [place] [phone] * Vitamin B12 and folate (06/19/2025 5:26 AM EDT) Vitamin B-12 774 250 - 900 pcg/mL LAB CHEMISTRY METHOD 06/19/2025 11:51 AM EDT [facility] Folate 6.4 2.8 - 17.0 ng/ml LAB CHEMISTRY METHOD 06/19/2025 11:51 AM EDT [facility] Blood Venous blood specimen / Unknown Venipuncture / Unknown 06/19/2025 5:26 AM EDT 06/19/2025 10:47 AM EDT us Bruce Welch MD LAB BLOOD ORDERABLES Final Resul t Performing Organization Address [facility]/ZIP Co de Phone Number [facility] [address] [place] [address], [place] [phone] * (ABNORMAL) Magnesium (06/19/2025 5:26 AM EDT) Magnesium 1.7(L) 1.9 - 2.6 mg/dL LAB CHEMISTRY METHOD 06/19/2025 11:29 AM EDT [facility] Blood Venous blood specimen / Unknown Venipuncture / Unknown 06/19/2025 5:26 AM EDT 06/19/2025 10:47 AM EDT us Bruce Welch MD LAB BLOOD ORDERABLES Final Resul t [facility] [address] [place] [address], [place] [phone] * (ABNORMAL) Thyroid stimulating hormone with reflex to free t4 and free t3 (06/19/2025 5:26 AM EDT) [facility] TSH 0.05(L) 0.40 - 4.00 mcIU/mL LAB CHEMISTRY METHOD 06/19/2025 5:27 PM EDT [facility] Blood Venous blood specimen / Unknown Venipuncture / Unknown 06/19/2025 5:26 AM EDT 06/19/2025 10:47 AM EDT us Bruce Welch MD LAB BLOOD ORDERABLES Final Resul t [facility] [address] [place] [address], [place] [phone] * Lipid panel with reflex to direct LDL (06/19/2025 5:26 AM EDT) [facility] Cholesterol 116 0 - 200 mg/dL LAB CHEMISTRY METHOD 06/19/2025 11:51 AM EDT [facility] Triglycerides 72 0 - 150 mg/dL LAB CHEMISTRY METHOD 06/19/2025 11:51 AM EDT [facility] HDL 58 >=40 mg/dL LAB CHEMISTRY METHOD 06/19/2025 11:51 AM EDT [facility] LDL Calculated 44 0 - 100 mg/dL LAB CHEMISTRY METHOD 06/19/2025 11:51 AM EDT [facility] VLDL Cholesterol Apolinar 14.4 mg/dL LAB CHEMISTRY METHOD 06/19/2025 11:51 AM EDT [facility] Non HDL Chol. (LDL+VLDL) [...] Resul t [facility] [address] [place] [address], * (ABNORMAL) Comprehensive metabolic panel (06/19/2025 5:26 [...] Resul t [facility] [address] [place] [address], * (ABNORMAL) Complete blood count (06/19/2025 5:26 AM EDT) [facility] WBC 8.4 4.8 - 10.8 K/mcL LAB [...] [facility] NRBC Absolute 0.00 <0.10 K/[facility] LAB HEMETOLOGY METHOD 06/19/2025 11:23 AM EDT [facility] Blood Venous blood specimen / Unknown Venipuncture / Unknown 06/19/2025 5:26 AM EDT 06/19/2025 10:47 AM EDT Bruce Welch MD LAB BLOOD ORDERABLES Final Resul t [facility] [address] [place] [address], documented in this encounter Visit Diagnoses Diagnosis Anemia, unspecified Type 2 diabetes mellitus without complications (CMS/HCC V24, CMS/HCC V28) Hyperlipidemia, unspecified Hypothyroidism, unspecified Magnesium deficiency Disorders of magnesium metabolism Vitamin B12 deficiency anemia, unspecified Vitamin D deficiency, unspecified documented in this encounter Care Teams Devil Dog Relationship Specialty Start Date End Date Bruce Welch MD [address] [place] [address] [address] [place] [address] PCP - General Geriatric Medicine 06/19/25 documented as of this encounter
--- OUTSIDE RECORDS SUMMARY | 2025-10-12 20:26 | XMS_ITS | Encounter Summary ---
Author Organization [facility] Address [address] [place] [id number] Care Team Providers Care Parking Meter Mechanic Name Role Phone Bruce Welch MD Primary Care Provider [phone] Encounter Details Date Type Department Care Team (Late st Contact Info) Description 04/21/2025 Lab Requisition [facility] - Main Lab 299 [facility] [place] [address] Bruce Welch MD [address] [place], [place] [phone] Vitamin D deficiency, unspecified; Essential (primary) hypertension; [...] V28) documented in this encounter Care Teams Parking Meter Mechanic Relationship Specialty Start Date End Date Bruce Welch MD [address] [place], [place] [phone] PCP - General Geriatric Medicine 06/19/25 documented as of this encounter
--- OUTSIDE RECORDS SUMMARY | 2025-10-12 20:26 | XMS_ITS | Patient Health Record ---
Author Organization [facility] Address [address] [place] [address] Care Team Providers Care Lung Gun Operator Name Role Phone Wilbur Velázquez M.D. Primary Care Provider Erna Obrien Jr Desean Unavailable [phone] Allergies Allergen (clinical drug ingredient) Drug/Non Drug Allergy documented on EMR Reaction Allergy Type Onset Date Status furosemide Furosemide Unknown Drug Allergy Activ e lisinopril Lisinopril Unknown Drug Allergy Activ e tramadol Tramadol HCl Unknown Drug Allergy Acti ve Reason For Referral No Information Medications Medication SIG (Take, Route, Frequency, Duration) Notes Start Date End Date Status Lantus 100 UNIT/ML Solution 60-65 units Subcutaneous QHS Active HumaLOG 100 UNIT/ML Solution 10/15 units Subcutaneous TID Active Pravastatin Sodium 40 MG Tablet 1 tablet Orally Once a day Active amLODIPine Besylate 10 MG Tablet 1 tablet Orally Once a day Active hydroCHLOROthiazide 12.5 MG Tablet 1 tablet in the morning Orally Once a day Active metFORMIN HCl 1000 MG Tablet 1 tablet wi th a meal Orally BID Active Levothyroxine Sodium 125 MCG Tablet 1 tablet on an empty stomach in the morning Orally Once a day Active Aleve 220 MG Tablet 1 tablet with food o r milk as needed Orally every 12 hrs/prn Active Vitamin D3 53779 UNIT Capsule 1 capsule Orally Once a day Active Golytely 236 GM Solution Reconstituted as directed before colonoscopy Orally every 15 minutes; Duration: 1 day(s) Active Social History Tobacco Use: Social History Observation Description Date Details (start date - stop date) Former Smoker NA - NA Social History Drugs/Alcohol: Social Info Question Answer Notes Alcohol Screen Did you have a drink containing alcohol in the past year? No Points 0 Interpretation Negative Tobacco Use: Social Info Question Answer Notes Tobacco Use/Smoking Patient is a former smoker How long has it been since you last smoked? 5-10 years Additional Details Category Social Info Options Details Miscellaneous: Marital status: Occupation: retired Problems Problem Type SNOMED Code ICD Code Onset Dates Problem Status W/U Status Risk Notes Problem Colon cancer screening (379511994) Colon cancer screening (Z12.11) Active confirmed Problem continuous churn buttermaker current use of non-steroidal anti-inflammat ory drug (4017760358065 03) FDC (current) use of non-steroidal anti-inflammat ories (NSAID) (Z79.1) Active confirmed Problem Long-term current use of insulin (786373740) FDC (current) use of insulin (Z79.4) Active confirmed Plan Of Treatment Future Test Test Name Order Date COLONOSCOPY 06/09/2018 Insurance Providers Payer Name Payer Address Payer Phone Subscriber Number Group Number Insured Name Patient Relationship to Insured Coverage Start Date Coverage End Date [facility] [address] [place] [phone] [id number] ALFONSO CUNHA Self - patient is the insured Medical (General) History Medical History History ICD Code hypertension diabetes mellitus elevated cholesterol hypothyroidism arthritis Surgical History Surgery Date(Month/Year) hysterectomy back surgery cholecystectomy cataract-lens implants both eyes
--- OUTSIDE RECORDS SUMMARY | 2025-10-12 20:26 | XMS_ITS | Clinical Summary ---
Author Organization [facility] [address] [place] [address] [place] [phone] Phone Care Team Providers Care Manager Professional Development Name Role Phone Bruce Welch MD Primary Care Provider [phone] Encounters Date Type Department Care Team Description 07/14/2025 Lab Requisition [facility] - Main Lab 299 [facility] [place] [address] Bruce Welch MD Type 2 diabetes mellitus without complications (CMS/HCC V24, CMS/HCC V28); Anemia, unspecified from Last 3 Months Social History [...] EDT Type 2 diabetes mellitus without complications ([facility]/HCC V24, [facility] V28) Anemia, unspecified LIPID PANEL WITH REFLEX TO DIRECT LDL Routine 06/19/2025 5:26 AM EDT Anemia, unspecified Type 2 diabetes mellitus without complications (CMS/HCC V24, [facility] V28) Hyperlipidemia, unspecified Hypothyroidism, unspecified Magnesium deficiency Vitamin B12 deficiency anemia, unspecified Vitamin D deficiency, unspecified HEMOGLOBIN A1C Routine 04/10/2025 7:55 AM EDT Vitamin D deficiency, unspecified Essential (primary) hypertension Unspecified atrial fibrillation ([facility] V24, [facility] V28) Type 2 diabetes mellitus without complications ([facility] V24, [facility] V28) from Last 3 Months or Most Recently Relevant to Health Maintenance Results * (ABNORMAL) Basic metabolic panel (07/10/2025 9:59 AM EDT) [facility] Sodium 137 133 - 145 mmol/L LAB [...] LAB CHEMISTRY METHOD 07/10/2025 4:12 PM EDT [facility] Calcium 9.7 8.5 - 10.5 mg/dL LAB CHEMISTRY METHOD 07/10/2025 4:12 PM EDT [facility] Blood Venous blood specimen / Unknown Venipuncture / Unknown 07/10/2025 9:59 AM EDT 07/10/2025 10:51 AM EDT us Bruce Welch MD LAB BLOOD ORDERABLES Final Resul t [facility] [address] [place] [address], [place] [phone] * Lipid panel with reflex to direct LDL (06/19/2025 5:26 AM EDT) Cholesterol 116 0 - 200 mg/dL LAB CHEMISTRY METHOD 06/19/2025 11:51 AM [facility] Triglycerides 72 0 - 150 mg/dL LAB CHEMISTRY METHOD 06/19/2025 11:51 AM [facility] HDL 58 >=40 mg/dL LAB CHEMISTRY METHOD 06/19/2025 11:51 AM [facility] LDL Calculated 44 0 - 100 mg/dL LAB CHEMISTRY METHOD 06/19/2025 11:51 AM [facility] VLDL Cholesterol Apolinar 14.4 mg/dL LAB CHEMISTRY METHOD 06/19/2025 11:51 AM [facility] Non HDL Chol. (LDL+VLDL) 58 <145 mg/dL LAB CHEMISTRY METHOD 06/19/2025 11:51 AM [facility] Chol/HDL Ratio 2.0 0.0 - 4.4 LAB CHEMISTRY METHOD 06/19/2025 11:51 AM [facility] Blood Venous blood specimen / Unknown Venipuncture / Unknown 06/19/2025 5:26 AM EDT 06/19/2025 10:47 AM EDT Bruce Welch MD LAB BLOOD ORDERABLES Final Resul t Performing Organization Address [facility] Co de Phone Number [facility] [address] [place] [address], [place] [phone] * Hemoglobin A1c (04/10/2025 7:55 AM EDT) [facility] Signature Hemoglobin A1C 6.3 <6.5 % LAB CHEMISTRY METHOD 04/10/2025 9:54 PM EDT [facility] Mean Bld Glu Estim. 134 mg/dL LAB CHEMISTRY METHOD 04/10/2025 9:54 PM EDT [facility] Blood Venous blood specimen / Unknown Venipuncture / Unknown 04/10/2025 7:55 AM EDT 04/10/2025 10:43 AM EDT Bruce Welch MD LAB BLOOD ORDERABLES Final Resul t Performing Organization Address [facility] de Phone Number [facility] [address] [place] [address], [place] [phone] from Last 3 Months or Most Recently Relevant to Health Maintenance Insurance [facility] [employer]AGE Care Teams Manager Professional Development Relationship Specialty Start Date End Date Bruce Welch MD [address] [place] [address] [address] [place] [address] PCP - General Geriatric Medicine 06/19/25
--- OUTSIDE RECORDS SUMMARY | 2025-10-12 20:26 | XMS_ITS | Encounter Summary ---
Author Organization [facility] Address [address] [place] [address] Care Team Providers Care Construction Superintendent Name Role Phone Bruce Welch MD Primary Care Provider [phone] Encounter Details Date Type Department Care Team (Late st Contact Info) Description 04/10/2025 Lab Requisition [facility] - Main Lab [address] [place] [address] Bruce Welch MD [address] [place], [place] [id number] Vitamin D deficiency, unspecified; Essential (primary) hypertension; [...] (ABNORMAL) Vitamin B12 (04/10/2025 7:55 AM EDT) [facility] Vitamin B-12 1,228(H) 250 - 900 pcg/mL LAB CHEMISTRY METHOD 04/10/2025 12:37 PM EDT [facility] Blood Venous blood specimen / Unknown Venipuncture / Unknown 04/10/2025 7:55 AM EDT 04/10/2025 10:43 AM EDT us Bruce Welch MD LAB BLOOD ORDERABLES Final Resul t Performing Organization Address City/[facility]/ZIP Co de Phone Number [facility] [address] [place] [address], [place] [phone] * Folate (04/10/2025 7:55 AM EDT) [facility] Folate 7.2 2.8 - 17.0 ng/ml LAB CHEMISTRY METHOD 04/10/2025 12:37 PM EDT [facility] Blood Venous blood specimen / Unknown Venipuncture / Unknown 04/10/2025 7:55 AM EDT 04/10/2025 10:43 AM EDT us Bruce Welch MD LAB BLOOD ORDERABLES Final Resul t Performing Organization Address [facility] Co de Phone Number [facility] [address] [place] [address], [place] [phone] * Vitamin D 25 hydroxy (04/10/2025 7:55 AM EDT) [facility] Vit D, 25-Hydroxy 71.3 30.0 - 80.0 ng/mL LAB CHEMISTRY METHOD 04/10/2025 2:06 PM EDT [facility] Blood Venous blood specimen / Unknown Venipuncture / Unknown 04/10/2025 7:55 AM EDT 04/10/2025 10:43 AM EDT us Bruce Welch MD LAB BLOOD ORDERABLES Final Resul t Performing Organization Address City/[facility]/ZIP Co de Phone Number [facility] [address] [place] [address], [place] [phone] * Hemoglobin A1c (04/10/2025 7:55 AM EDT) [facility] Hemoglobin A1C 6.3 <6.5 % LAB CHEMISTRY [...] t [facility] [address] [place] [address], [place] [phone] * (ABNORMAL) Lipid panel with reflex to direct LDL (04/10/2025 7:55 AM EDT) [facility] Cholesterol 94 0 - 200 mg/dL LAB CHEMISTRY METHOD 04/10/2025 12:37 PM [facility] Triglycerides 84 0 - 150 mg/dL LAB CHEMISTRY METHOD 04/10/2025 12:37 PM [facility] HDL 39(L) >=40 mg/dL LAB CHEMISTRY METHOD 04/10/2025 12:37 PM [facility] LDL Calculated 38 0 - 100 mg/dL LAB CHEMISTRY METHOD 04/10/2025 12:37 PM [facility] VLDL Cholesterol Apolinar 16.8 mg/dL LAB CHEMISTRY METHOD 04/10/2025 12:37 PM EDT [facility] Non HDL Chol. (LDL+VLDL) 55 <145 mg/dL LAB CHEMISTRY METHOD 04/10/2025 12:37 PM [facility] Chol/HDL Ratio 2.4 0.0 - 4.4 LAB CHEMISTRY METHOD 04/10/2025 12:37 PM [facility] Blood Venous blood specimen / Unknown Venipuncture / Unknown 04/10/2025 7:55 AM EDT 04/10/2025 10:43 AM EDT Bruce Welch MD LAB BLOOD ORDERABLES Final Resul t [facility] [address] [place] [address], [place] [phone] * (ABNORMAL) Comprehensive metabolic panel (04/10/2025 7:55 AM EDT) Sodium 142 133 - 145 mmol/L LAB CHEMISTRY METHOD 04/10/2025 12:37 PM [facility] Potassium 4.1 3.5 - 5.5 mmol/L LAB CHEMISTRY METHOD 04/10/2025 12:37 PM [facility] Chloride 107 96 - 110 mmol/L LAB CHEMISTRY METHOD 04/10/2025 12:37 PM [facility] CO2 27 21 - 32 mmol/L LAB CHEMISTRY METHOD 04/10/2025 12:37 PM [facility] Anion Gap 8 3 - 11 LAB CHEMISTRY METHOD 04/10/2025 12:37 PM [facility] Glucose 87 70 - 100 mg/dL LAB CHEMISTRY METHOD 04/10/2025 12:37 PM [facility] BUN 15 5 - 25 mg/dL LAB CHEMISTRY METHOD 04/10/2025 12:37 PM [facility] Creatinine 0.73 0.50 - 1.10 mg/dL LAB CHEMISTRY METHOD 04/10/2025 12:37 PM [facility] eGFR 84 >=60 mL/min/1. 73m2 LAB CHEMISTRY METHOD 04/10/2025 12:37 PM [facility] Comment:Calculation based on the Chronic Kidney Disease Epidemiology Collaboration (CKD-EPI) equation refit without adjustment for race. BUN/Creatinine Ratio 20.5 LAB CHEMISTRY METHOD 04/10/2025 12:37 PM T [facility] Calcium 8.4(L) 8.5 - 10.5 mg/dL LAB CHEMISTRY METHOD 04/10/2025 12:37 PM [facility] AST (SGOT) 35 10 - 42 unit/L LAB CHEMISTRY METHOD 04/10/2025 12:37 PM [facility] ALT (SGPT) 34 10 - 60 unit/L LAB CHEMISTRY METHOD 04/10/2025 12:37 PM [facility] Alkaline Phosphatase 225(H) 42 - 121 unit/L LAB CHEMISTRY METHOD 04/10/2025 12:37 PM [facility] Total Protein 5.4(L) 6.0 - 8.0 g/dL LAB CHEMISTRY METHOD 04/10/2025 12:37 PM [facility] Albumin 2.4(L) 3.2 - 5.0 g/dL LAB CHEMISTRY METHOD 04/10/2025 12:37 PM [facility] Total Bilirubin 0.4 0.0 - 1.4 mg/dL LAB CHEMISTRY METHOD 04/10/2025 12:37 PM [facility] Blood Venous blood specimen / Unknown Venipuncture / Unknown 04/10/2025 7:55 AM EDT 04/10/2025 10:43 AM EDT us Bruce Welch MD LAB BLOOD ORDERABLES Final Resul t [facility] [address] [place] [address], * (ABNORMAL) Complete blood count (04/10/2025 7:55 AM EDT) WBC 7.3 4.8 - 10.8 K/mcL LAB HEMETOLOGY METHOD 04/10/2025 12:23 PM EDT [facility] RBC 3.30(L) 3.80 - 4.80 M/mcL LAB HEMETOLOGY METHOD 04/10/2025 12:23 PM [facility] Hemoglobin 8.4(L) 11.5 - 16.0 g/dL LAB HEMETOLOGY METHOD 04/10/2025 12:23 PM [facility] Hematocrit 27.9(L) 35.0 - 47.0 % LAB HEMETOLOGY METHOD 04/10/2025 12:23 PM [facility] MCV 83.8 79.0 - 98.0 FL LAB HEMETOLOGY METHOD 04/10/2025 12:23 PM [facility] MCH 25.2(L) 27.0 - 32.0 pcg LAB HEMETOLOGY METHOD 04/10/2025 12:23 PM [facility] MCHC 30.1(L) 32.0 - 37.0 g/dL LAB HEMETOLOGY METHOD 04/10/2025 12:23 PM [facility] RDW 15.7(H) 11.0 - 15.0 % LAB HEMETOLOGY METHOD 04/10/2025 12:23 PM [facility] Platelets 279 130 - 400 K/mcL LAB HEMETOLOGY METHOD 04/10/2025 12:23 PM [facility] MPV 11.8(H) 7.0 - 11.0 FL LAB HEMETOLOGY METHOD 04/10/2025 12:23 PM [facility] NRBC 0.0 <1.0 % LAB HEMETOLOGY METHOD 04/10/2025 12:23 PM [facility] NRBC Absolute 0.00 <0.10 K/mcL LAB HEMETOLOGY METHOD 04/10/2025 12:23 PM [facility] Blood Venous blood specimen / Unknown Venipuncture / Unknown 04/10/2025 7:55 AM EDT 04/10/2025 10:43 AM EDT Bruce Welch MD LAB BLOOD ORDERABLES Final Resul t [facility] ([facility]) [facility] [address] [place] [address], [place] [phone] documented in this encounter Visit Diagnoses Diagnosis Vitamin D deficiency, unspecified Essential (primary) hypertension Unspecified essential hypertension Unspecified atrial fibrillation (CMS/[facility] V24, CMS/[facility] V28) Type 2 diabetes mellitus without complications (CMS/[facility] V24, CMS/[facility] V28) documented in this encounter Care Teams Construction Superintendent Relationship Specialty Start Date End Date Bruce Welch MD [address] [place] [address] [address] [place] [address] PCP - General Geriatric Medicine 06/19/25 documented as of this encounter
--- OUTSIDE RECORDS SUMMARY | 2025-10-12 20:26 | XMS_ITS | Encounter Summary ---
Author Organization [facility] Address [address] [place] [address] Care Team Providers Care Environmental Health Aide Name Role Phone Bruce Welch MD Primary Care Provider [phone] Encounter Details Date Type Department Care Team (Late st Contact Info) Description 06/30/2025 Lab Requisition [facility] - Main Lab [address] [facility] [place] [address] Bruce Welch MD [address] [place], [place] [phone] Type 2 diabetes mellitus without complications (CMS/HCC [...] mmol/L LAB CHEMISTRY METHOD 07/03/2025 1:00 PM [facility] Potassium 4.2 3.5 - 5.5 mmol/L LAB CHEMISTRY METHOD 07/03/2025 1:00 PM [facility] Chloride 102 96 - 110 mmol/L LAB CHEMISTRY METHOD 07/03/2025 1:00 PM [facility] CO2 31 21 - 32 mmol/L LAB CHEMISTRY METHOD 07/03/2025 1:00 PM [facility] Anion Gap 6 3 - 11 LAB CHEMISTRY METHOD 07/03/2025 1:00 PM [facility] Glucose 74 70 - 100 mg/dL LAB CHEMISTRY METHOD 07/03/2025 1:00 PM [facility] BUN 15 5 - 25 mg/dL LAB CHEMISTRY METHOD 07/03/2025 1:00 PM [facility] Creatinine 0.72 0.50 - 1.10 mg/dL LAB CHEMISTRY METHOD 07/03/2025 1:00 PM [facility] eGFR 85 >=60 mL/min/1. 73m2 LAB CHEMISTRY METHOD 07/03/2025 1:00 PM [facility] Comment:Calculation based on the Chronic Kidney Disease Epidemiology Collaboration (CKD-EPI) equation refit without adjustment for race. BUN/Creatinine Ratio 20.8 LAB CHEMISTRY METHOD 07/03/2025 1:00 PM [facility] Calcium 9.4 8.5 - 10.5 mg/dL LAB CHEMISTRY METHOD 07/03/2025 1:00 PM [facility] Blood Venous blood specimen / Unknown Venipuncture / Unknown 07/03/2025 8:21 AM EDT 07/03/2025 11:55 AM EDT us Bruce Welch MD LAB BLOOD ORDERABLES Final Resul t [facility] [address] [place] [address], * (ABNORMAL) Complete blood count (07/03/2025 8:21 AM EDT) [facility] WBC 10.6 4.8 - 10.8 K/mcL LAB HEMETOLOGY METHOD 07/03/2025 1:24 PM EDT [facility] RBC 4.00 3.80 - 4.80 M/mcL LAB HEMETOLOGY METHOD 07/03/2025 1:24 PM EDT [facility] Hemoglobin 9.9(L) 11.5 - 16.0 g/dL LAB HEMETOLOGY METHOD 07/03/2025 1:[facility] Hematocrit 33.4(L) 35.0 - 47.0 % LAB HEMETOLOGY METHOD 07/03/2025 1:24 PM [facility] MCV 82.9 79.0 - 98.0 FL LAB HEMETOLOGY METHOD 07/03/2025 1:[facility] MCH 24.6(L) 27.0 - 32.0 pcg LAB HEMETOLOGY METHOD 07/03/2025 1:24 PM [facility] MCHC 29.6(L) 32.0 - 37.0 g/dL LAB HEMETOLOGY METHOD 07/03/2025 1:24 PM [facility] RDW 16.0(H) 11.0 - 15.0 % LAB HEMETOLOGY METHOD 07/03/2025 1:24 PM T [facility] Platelets 419(H) 130 - 400 K/mcL LAB HEMETOLOGY METHOD 07/03/2025 1:24 PM [facility] MPV 10.6 7.0 - 11.0 FL LAB HEMETOLOGY METHOD 07/03/2025 1:24 [facility] NRBC 0.0 <1.0 % LAB HEMETOLOGY METHOD 07/03/2025 1:24 PM EDT [facility] NRBC Absolute 0.00 <0.10 K/mcL LAB HEMETOLOGY METHOD 07/03/2025 1:24 PM EDT [facility] Blood Venous blood specimen / Unknown Venipuncture / Unknown 07/03/2025 8:21 AM EDT 07/03/2025 11:55 AM EDT Bruce Welch MD LAB BLOOD ORDERABLES Final Resul t [facility] [address] [place] [address], documented in this encounter Visit Diagnoses Diagnosis Type 2 diabetes mellitus without complications (CMS/HCC V24, CMS/HCC V28) Anemia, unspecified documented in this encounter Care Teams Environmental Health Aide Relationship Specialty Start Date End Date Bruce Welch MD [address] [place] [address] [address] [place] [address] PCP - General Geriatric Medicine 06/19/25 documented as of this encounter
--- OUTSIDE RECORDS SUMMARY | 2025-10-12 20:26 | XMS_ITS | Patient Health Record ---
Author Organization [facility] Address [address] [place] [address] Care Team Providers Care Objective C Developer Name Role Phone Milana NATARAJAN, Allen Primary Care Provider Desire Arias Unavailable [phone] Allergies No Known Allergies Reason For Referral [...] Problem Acquired hammer toe of right foot (5893869109984635 ) Other hammer toe(s) (acquired), right foot (M20.41) Active confirmed Problem Acquired hammer toe of left foot (1850683132694347 ) Other hammer toe(s) (acquired), left foot (M20.42) Active confirmed Problem Acquired hammer toe of left foot (4585202182543204 ) Hammer toe of left foot (M20.42) Active confirmed Problem Polyneuropathy due to type 2 diabetes mellitus (623620004) 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.42) Active confirmed Problem Localized, primary osteoarthritis of the ankle and/or foot (856609292) Osteoarthritis of left ankle and foot (M19.072) Active confirmed Plan Of Treatment Pending Test Test Name Order Date [id number] NAIL, 6 OR MORE 01/23/2015 [id number] Plate 01/23/2015 [id number] Plate Each Additional 01/2015 [id number] SKIN LESIONS, OVER 4 01/24/20 15 Insurance Providers Payer Name Payer Address Payer Phone Subscriber Number Group Number Insured Name Patient Relationship to Insured Coverage Start Date Coverage End Date [employer] [place] [employer]age [facility] [address] [place] [address] [id number] Naty Cervantes Self - patient is the insured Medical (General) History Medical History History ICD Code Chicken pox Measles Mumps Hypertension Thyroid disorder Diabetic Arthritis Back,Hip,and Knee pain CAD (Cholesterol) Gall bladder problems Vascular phlebitis (clots) Stroke Cataracts Hearing loss Surgical History Surgery Date(Month/Year) cholecystectomy hysterectomy 1994 back surgery 1991 gall bladder 1970 cataract surgery Hospitalization History Reason Date[place] [facility] [place]
--- OUTSIDE RECORDS SUMMARY | 2025-10-12 20:26 | XMS_ITS | Encounter Summary ---
Author Organization [facility] Address [address] [place] [address] Care Team Providers Care Brass And Wind Instrument Repairer Name Role Phone Bruce Welch MD Primary Care Provider [phone] Encounter Details Date Type Department Care Team (Late st Contact Info) Description 04/16/2025 Lab Requisition [facility] - Main Lab [address] [facility] [place] [address] Bruce Welch MD [address] [place], [place] [phone] Vitamin D deficiency, unspecified; Essential (primary) hypertension; [...] 2 diabetes mellitus without complications (CMS/HCC V24, CMS/[facility] V28) documented in this encounter [...] [facility] [address] [place] [address], [place] [phone] * (ABNORMAL) Complete blood count (04/18/2025 6:41 AM EDT) WBC 8.4 4.8 - 10.8 K/mcL LAB HEMETOLOGY METHOD 04/18/2025 12:24 PM EDT [facility] RBC 3.60(L) 3.80 - 4.80 M/mcL LAB HEMETOLOGY METHOD 04/18/2025 12:24 PM EDT [facility] Hemoglobin 8.7(L) 11.5 - 16.0 g/dL LAB HEMETOLOGY METHOD 04/18/2025 12:24 PM EDT [facility] Hematocrit 29.8(L) 35.0 - 47.0 % LAB HEMETOLOGY METHOD 04/18/2025 12:24 PM EDT [facility] MCV 83.7 79.0 - 98.0 FL LAB HEMETOLOGY METHOD 04/18/2025 12:24 PM EDT [facility] MCH 24.4(L) 27.0 - 32.0 pcg LAB HEMETOLOGY METHOD 04/18/2025 12:24 PM EDT [facility] MCHC 29.2(L) 32.0 - 37.0 g/dL LAB HEMETOLOGY METHOD 04/18/2025 12:24 PM EDT [facility] RDW 15.3(H) 11.0 - 15.0 % LAB HEMETOLOGY METHOD 04/18/2025 12:24 PM EDT [facility] Platelets 411(H) 130 - 400 K/mcL LAB HEMETOLOGY METHOD 04/18/2025 12:24 PM EDT [facility] MPV 11.1(H) 7.0 - 11.0 FL LAB HEMETOLOGY METHOD 04/18/2025 12:24 PM EDT [facility] NRBC 0.0 <1.0 % LAB HEMETOLOGY METHOD 04/18/2025 12:24 PM EDT [facility] NRBC Absolute 0.00 <0.10 K/mcL [facility] 04/18/2025 12:24 PM EDT [facility] Blood Venous blood specimen / Unknown Venipuncture / Unknown 04/18/2025 6:41 AM EDT 04/18/2025 10:47 AM EDT Bruce Welch MD LAB BLOOD ORDERABLES Final Resul t [facility] [address] [place] [address], documented in this encounter Visit Diagnoses Diagnosis Vitamin D deficiency, unspecified Essential (primary) hypertension Unspecified essential hypertension Unspecified atrial fibrillation (CMS/HCC V24, CMS/HCC V28) Type 2 diabetes mellitus without complications (CMS/HCC V24, CMS/HCC V28) documented in this encounter Care Teams Brass And Wind Instrument Repairer Relationship Specialty Start Date End Date Bruce Welch MD [address] [place] [address] [address] [place] [address] PCP - General Geriatric Medicine 06/19/25 documented as of this encounter
--- OUTSIDE RECORDS SUMMARY | 2025-10-12 20:26 | XMS_ITS | Encounter Summary ---
Author Organization [facility] Address [address] [place] [address] Care Team Providers Care Collection Card Clerk Name Role Phone Bruce Welch MD Primary Care Provider [phone] Encounter Details Date Type Department Care Team (Late st Contact Info) Description 07/14/[address] [facility] - Main Lab 299 [facility] [employer] [place] [address] Bruce Welch MD [address] [facility] [address] [place], [place] [id number] Type 2 diabetes mellitus without complications (CMS/HCC [...] unspecified documented in this encounter Care Teams Collection Card Clerk Relationship Specialty Start Date End Date Bruce Welch MD [address] [facility] [address] [place], [place] [id number] PCP - General Geriatric Medicine 06/19/25 documented as of this encounter
--- OUTSIDE RECORDS SUMMARY | 2025-10-12 20:26 | XMS_ITS | Encounter Summary ---
Author Organization [facility] Address [address] [place] [address] Care Team Providers Care Senior Software Project Manager Name Role Phone Bruce Welch MD Primary Care Provider [phone] Encounter Details Date Type Department Care Team (Late st Contact Info) Description 07/05/2025 Lab Requisition [facility] - Main Lab [address] [facility] [place] [address] Bruce Welch MD [address] [place], [place] [phone] Essential (primary) hypertension; Hypomagnesemia Social History Tobacco [...] mg/dL LAB CHEMISTRY METHOD 07/05/2025 11:16 AM [facility] Blood Venous blood specimen / Unknown Venipuncture / Unknown 07/05/2025 6:12 AM EDT 07/05/2025 9:34 AM EDT us Bruce Welch MD LAB BLOOD ORDERABLES Final Resul t [facility] [address] [place] [address], * Basic metabolic panel (07/05/2025 6:12 AM EDT) Sodium 140 133 - 145 mmol/L LAB CHEMISTRY METHOD 07/05/2025 11:16 AM [facility] Potassium 4.6 3.5 - 5.5 mmol/L LAB CHEMISTRY METHOD 07/05/2025 11:16 AM [facility] Chloride 103 96 - 110 mmol/L LAB CHEMISTRY METHOD 07/05/2025 11:16 AM [facility] CO2 32 21 - 32 mmol/L LAB CHEMISTRY METHOD 07/05/2025 11:16 AM [facility] Anion Gap 5 3 - 11 LAB CHEMISTRY METHOD 07/05/2025 11:16 AM [facility] Glucose 91 70 - 100 mg/dL LAB CHEMISTRY METHOD 07/05/2025 11:16 AM [facility] BUN 16 5 - 25 mg/dL LAB CHEMISTRY METHOD 07/05/2025 11:16 AM [facility] Creatinine 0.70 0.50 - 1.10 mg/dL LAB CHEMISTRY METHOD 07/05/2025 11:16 AM [facility] eGFR 88 >=60 mL/min/1. 73m2 LAB CHEMISTRY METHOD 07/05/2025 11:16 AM [facility] Comment:Calculation based on the Chronic Kidney Disease Epidemiology Collaboration (CKD-EPI) equation refit without adjustment for race. BUN/Creatinine Ratio 22.9 LAB CHEMISTRY METHOD 07/05/2025 11:16 AM EDT [facility] Calcium 8.9 8.5 - 10.5 mg/dL LAB CHEMISTRY METHOD 07/05/2025 11:16 AM EDT [facility] Blood Venous blood specimen / Unknown Venipuncture / Unknown 07/05/2025 6:12 AM EDT 07/05/2025 9:34 AM EDT us Bruce Welhc MD LAB BLOOD ORDERABLES Final Resul t [facility] [address] [place] [address], [place] [phone] * (ABNORMAL) Complete blood count (07/05/2025 6:12 AM EDT) WBC 9.1 4.8 - 10.8 K/mcL LAB HEMETOLOGY METHOD 07/05/2025 10:26 AM [facility] RBC 4.30 3.80 - 4.80 M/mcL LAB HEMETOLOGY METHOD 07/05/2025 10:26 AM [facility] Hemoglobin 10.7(L) 11.5 - 16.0 g/dL LAB HEMETOLOGY METHOD 07/05/2025 10:26 AM [facility] Hematocrit 35.4 35.0 - 47.0 % LAB HEMETOLOGY METHOD 07/05/2025 10:26 AM [facility] MCV 81.6 79.0 - 98.0 FL LAB HEMETOLOGY METHOD 07/05/2025 10:26 AM [facility] MCH 24.7(L) 27.0 - 32.0 pcg LAB HEMETOLOGY METHOD 07/05/2025 10:26 AM [facility] MCHC 30.2(L) 32.0 - 37.0 g/dL LAB HEMETOLOGY METHOD 07/05/2025 10:26 AM EDT [facility] RDW 15.9(H) 11.0 - 15.0 % LAB HEMETOLOGY METHOD 07/05/2025 10:26 AM EDT [facility] Platelets 387 130 - 400 K/mcL LAB HEMETOLOGY METHOD 07/05/2025 10:26 AM EDT [facility] MPV 10.6 7.0 - 11.0 FL LAB HEMETOLOGY METHOD 07/05/2025 10:26 AM EDT [facility] NRBC 0.0 <1.0 % LAB HEMETOLOGY METHOD 07/05/2025 10:26 AM EDT [facility] NRBC Absolute 0.00 <0.10 K/mcL LAB HEMETOLOGY METHOD 07/05/2025 10:26 AM EDT [facility] Blood Venous blood specimen / Unknown Venipuncture / Unknown 07/05/2025 6:12 AM EDT 07/05/2025 9:34 AM EDT Bruce Welch MD LAB BLOOD ORDERABLES Final Resul t [facility] [address] [place] [address], documented in this encounter Visit Diagnoses Diagnosis Essential (primary) hypertension Unspecified essential hypertension Hypomagnesemia Disorders of magnesium metabolism documented in this encounter Care Teams Senior Software Project Manager Relationship Specialty Start Date End Date Bruce Welch MD [address] [place], [place] [id number] [place] [address] PCP - General Geriatric Medicine 06/19/25 documented as of this encounter
--- OUTSIDE RECORDS SUMMARY | 2025-10-12 20:26 | XMS_ITS | Encounter Summary ---
Author Organization [facility] Address [address] [place] [address] Care Team Providers Care Distributor Cleaner Name Role Phone Bruce Welch MD Primary Care Provider [phone] Encounter Details Date Type Department Care Team (Late st Contact Info) Description 07/08/2025 Lab Requisition [facility] - Main Lab [address] [facility] [place] [address] Bruce Welch MD [address] [place], [place] [id number] Type 2 diabetes mellitus without complications (CMS/HCC [...] 29.0 LAB CHEMISTRY METHOD 07/10/2025 4:12 PM [facility] Calcium 9.7 8.5 - 10.5 mg/dL LAB CHEMISTRY METHOD 07/10/2025 4:12 PM [facility] Blood Venous blood specimen / Unknown Venipuncture / Unknown 07/10/2025 9:59 AM EDT 07/10/2025 10:51 AM EDT us Bruce Welch MD LAB BLOOD ORDERABLES Final Resul t [facility] [address] [place] [address], * (ABNORMAL) Complete blood count (07/10/2025 9:59 AM EDT) [facility] WBC 7.2 4.8 - 10.8 K/mcL LAB HEMETOLOGY METHOD 07/10/2025 1:30 PM EDT [facility] RBC 4.40 3.80 - 4.80 M/mcL LAB HEMETOLOGY METHOD 07/10/2025 1:30 PM EDT [facility] Hemoglobin 11.0(L) 11.5 - 16.0 g/dL LAB HEMETOLOGY METHOD 07/10[facility]2025 1[facility] Hematocrit 36.6 35.0 - 47.0 % LAB HEMETOLOGY METHOD 07/10/2025 1:30 PM [facility] MCV 82.4 79.0 - 98.0 [...] K/mcL LAB HEMETOLOGY METHOD 07/10/2025 1:30 PM [facility] MPV 10.8 7.0 - 11.0 FL LAB HEMETOLOGY METHOD 07/10/2025 1:30 PM [facility] NRBC 0.0 <1.0 [...] Resul t [facility] [address] [place] [address], documented in this encounter Visit Diagnoses Diagnosis Type 2 diabetes mellitus without complications (CMS/HCC V24, CMS/HCC V28) Anemia, unspecified documented in this encounter Care Teams Distributor Cleaner Relationship Specialty Start Date End Date Bruce Welch MD [address] [place] [address] [address] [place] [address] PCP - General Geriatric Medicine 06/19/25 documented as of this encounter
--- OUTSIDE RECORDS SUMMARY | 2025-10-12 20:26 | XMS_ITS | Encounter Summary ---
Author Organization [facility] Address [address] [place] [address] Care Team Providers Care Preventive Medicine Officer Name Role Phone Bruce Welch MD Primary Care Provider [phone] Encounter Details Date Type Department Care Team (Late st Contact Info) Description 06/24/2025 Lab Requisition [facility] - Main Lab 299 [facility] [employer] [place] [address] Bruce Welch MD [address] [place], [place] [id number] Type 2 diabetes mellitus without complications (CMS/HCC [...] mmol/L LAB CHEMISTRY METHOD 06/26/2025 1:23 PM [facility] Potassium 3.9 3.5 - 5.5 mmol/L LAB CHEMISTRY METHOD 06/26/2025 1:23 PM [facility] Chloride 103 96 - 110 mmol/L LAB CHEMISTRY METHOD 06/26/2025 1:23 PM [facility] CO2 27 21 - 32 mmol/L LAB CHEMISTRY METHOD 06/26/2025 1:23 PM [facility] Anion Gap 8 3 - 11 LAB CHEMISTRY METHOD 06/26/2025 1:23 PM [facility] Glucose 111(H) 70 - 100 mg/dL LAB CHEMISTRY METHOD 06/26/2025 1:23 PM [facility] BUN 21 5 - 25 mg/dL LAB CHEMISTRY METHOD 06/26/2025 1:23 PM [facility] Creatinine 0.69 0.50 - 1.10 mg/dL LAB CHEMISTRY METHOD 06/26/2025 1:23 PM [facility] eGFR 88 >=60 mL/min/1. 73m2 LAB CHEMISTRY METHOD 06/26/2025 1:23 PM [facility] Comment:Calculation based on the Chronic Kidney Disease Epidemiology Collaboration (CKD-EPI) equation refit without adjustment for race. BUN/Creatinine Ratio 30.4 LAB CHEMISTRY METHOD 06/26/2025 1:23 PM [facility] Calcium 8.6 8.5 - 10.5 mg/dL LAB CHEMISTRY METHOD 06/26/2025 1:23 PM [facility] Blood Venous blood specimen / Unknown Venipuncture / Unknown 06/26/2025 10:03 AM EDT 06/26/2025 11:19 AM EDT us Bruce Welch MD LAB BLOOD ORDERABLES Final Resul t [facility] [address] [place] [address], * (ABNORMAL) Complete blood count (06/26/2025 10:03 AM EDT) [facility] WBC 9.4 4.8 - 10.8 K/mcL LAB HEMETOLOGY METHOD 06/26/2025 12:[facility] PM [facility] RBC 4.10 3.80 - 4.80 M/mcL LAB HEMETOLOGY METHOD 06/26/2025 12:15 [facility] Hemoglobin 10.2(L) 11.5 - 16.0 g/dL LAB HEMETOLOGY METHOD 06/26/2025 12:15 PM [facility] Hematocrit 33.2(L) 35.0 - 47.0 % LAB HEMETOLOGY METHOD 06/26/2025 12:15 PM [facility] MCV 81.4 79.0 - 98.0 FL LAB HEMETOLOGY METHOD 06/26/2025 12:15 PM [facility] MCH 25.0(L) 27.0 - 32.0 pcg LAB HEMETOLOGY METHOD 06/26/2025 12:15 PM [facility] MCHC 30.7(L) 32.0 - 37.0 g/dL LAB HEMETOLOGY METHOD 06/26/2025 12:15 PM [facility] RDW 15.9(H) 11.0 - 15.0 % LAB HEMETOLOGY METHOD 06/26/2025 12:15 PM [facility] Platelets 364 130 - 400 K/mcL LAB HEMETOLOGY METHOD 06/26/2025 12:15 PM [facility] MPV 10.5 7.0 - 11.0 FL LAB HEMETOLOGY METHOD 06/26/2025 12:15 PM [facility] NRBC 0.0 <1.0 % LAB [...] Resul t [facility] [address] [place] [address], documented in this encounter Visit Diagnoses Diagnosis Type 2 diabetes mellitus without complications (CMS/HCC V24, CMS/HCC V28) Anemia, unspecified documented in this encounter Care Teams Preventive Medicine Officer Relationship Specialty Start Date End Date Bruce Welch MD [address] [place] [address] [address] [place] [address] PCP - General Geriatric Medicine 06/19/25 documented as of this encounter
== END 2025-10-12 20:28 | disposition short-term general hospital (02) ==
PROVIDERS: Emergency Provider Emergency Medicine
DX: S09.90XA Unspecified injury of head, initial encounter (principal); S30.0XXA Contusion of lower back and pelvis, initial encounter; W18.30XA Fall on same level, unspecified, initial encounter; Y93.89 Activity, other specified; Y92.9 Unspecified place or not applicable; Y99.9 Unspecified external cause status; I48.91 Unspecified atrial fibrillation; I10 Essential (primary) hypertension; E11.9 Type 2 diabetes mellitus without complications; Z79.01 Long term (current) use of anticoagulants; Z79.899 Other long term (current) drug therapy
CPT/HCPCS: 36415; 70450; 72192; 72193; 80053; 82947; 85025; 93005; 96374; 96375; 99285; J2270; J2405; J7168

== ENCOUNTER → 2025-10-12 14:24 | Outpatient (BNV) | payer MEDICARE, SELFPAY | PROVIDERS: Emergency Provider Emergency Medicine; Visit Provider Radiology Diagnostic Ultrasound | DX: S30.0XXA Contusion of lower back and pelvis, initial encounter (principal); M79.604 Pain in right leg; S09.90XA Unspecified injury of head, initial encounter; Z79.01 Long term (current) use of anticoagulants; W19.XXXA Unspecified fall, initial encounter | CPT/HCPCS: 70450; 72192; 72193 ==

== ENCOUNTER → 2025-10-12 14:53 | Outpatient (BNV) | payer MEDICARE, SELFPAY | PROVIDERS: Emergency Provider Emergency Medicine; Visit Provider Internal Medicine | DX: R94.31 Abnormal electrocardiogram [ECG] [EKG] (principal); Z04.3 Encounter for examination and observation following other accident | CPT/HCPCS: 93010 ==

== ENCOUNTER 2025-10-27 14:07 | Outpatient (AMB) | payer MEDICARE, SELFPAY ==
[2025-10-27 14:07] VITALS: BMI 28.2
--- NOTE | 2025-10-27 14:07 | MHC.OFFVIS ---
Vital Signs 10/27/25 14:07 Height 5 ft 1 in Weight 149 lb BMI 28.2 Intake Visit Reasons: PO Left Carpal Tunnel Release 10/09/25 Intake Note: Naty is a 79 year old right hand dominant female who presents today for her first post operative visit s/p Left Carpal Tunnel Release, DOS: 10/09/[address] Tuttle. Patient reports she is doing well. She denies numbness or tingling. She is taking Tylenol with relief. Sutures removed & Steri Strips applied. Allergies amoxicillin (Augmentin) Allergy (Unknown, Verified 10/27/25 14:08) hives clavulanic acid (Augmentin) Allergy (Unknown, Verified 10/27/25 14:08) hives furosemide Allergy (Unknown, Verified 10/27/25 14:08) unknown latex (LATEX) Allergy (Unknown, Verified 10/27/25 14:08) UNKNOWN lisinopril Allergy (Unknown, Verified 10/27/25 14:08) Unknown oxycodone (Percocet) Allergy (Unknown, Verified 10/27/25 14:08) Stomach upset tramadol Allergy (Unknown, Verified 10/27/25 14:08) Stomach uspet HPI HPI PO Left Carpal Tunnel Release 10/09/25: Details: Naty is a 79 year old right hand dominant female who presents today for her first post operative visit s/p Left Carpal Tunnel Release, DOS: 10/09/[address] Tuttle. Patient reports she is doing well. Patient does report occasional numbness and tingling in the left hand, but nothing like it was before. She is taking Tylenol with relief. Sutures removed & Steri Strips applied. Of note, 1 suture was covered by dry skin, but was able to be removed. [facility] Medical History Acid reflux Decreased appetite Carpal tunnel syndrome Frequent falls Paroxysmal atrial fibrillation Orthostatic hypotension Anemia Buttock wound Obesity (BMI 30-39.9) Neuropathy Acquired hypothyroidism Mixed hyperlipidemia Essential hypertension Atrial fibrillation Hypothyroidism Obesity Type 2 diabetes mellitus with morbid obesity Annual physical exam Vitamin D deficiency HLD (hyperlipidemia) T2DM (type 2 diabetes mellitus) Diabetes mellitus Hypertension Surgical History H/O hysterectomy for benign disease History of vitrectomy History of surgery History of colonoscopy (~01/28/19) History of appendectomy History of cholecystectomy S/P JOSIE (total abdominal hysterectomy) Family History Father Diabetes Mother CHF (congestive heart failure) CVD (cardiovascular disease) Brother HIV (human immunodeficiency virus infection) Maternal Aunt Stomach cancer Social History Household Members: Children Household Members Other:: alternating among 2 daughters and 1 son Housing: House Do you presently have visiting nurse or other home services: No Alcohol intake: current Patient Tobacco Use Status: Former Tobacco user Tobacco use type: Cigarette Years Smoked: 30, started at 10, about 15 cig a day, e-Cigarette/Vaping Use: Former Use Second Hand Smoke Exposure: Yes Advance Directives Date on File: 12/15/23 service: No Current occupational status: retired Current occupational exposures/hazards: No Cognitive needs: No Hearing needs: No Vision needs: No Review of Systems Const All systems reviewed & are unremarkable except as noted in HPI and below Physical Exam Vital Signs: BMI result Body Mass Index 28.2 Extrem Other: Patient is alert, oriented, and in no acute distress. Neuro: Normal sensation of the tips of all digits of the left hand at this time Vascular: Cap refill brisk Pain: Minimal tenderness to palpation about the incision site on volar left wrist No pain with range of motion of the left hand ROM: Patient is able to make a closed fist and extend all digits of the left hand fully Skin: Well approximated and well healing incision site noted on volar left wrist No lacerations or abrasions. General: No ecchymosis, erythema, or evidence of infection. Psych: Appears grossly normal Affect normal Attitude cooperative Assessment & Plan Assessment & Plan (1) Carpal tunnel syndrome of left wrist: Code(s): G56.02 - Carpal tunnel syndrome, left upper limb Category: Medical Plan 1. Status post left carpal tunnel release DOS 10/09/2025 With good symptomatic resolution postoperatively, not complete however Patient appears to be recovering well postoperatively Patient is educated about the typical recovery course Sutures removed, Steri-Strips applied without issue No under water times one-week, 2 lb weight limit x2 weeks Patient appears to be recovering very well, and requires no further acute follow-up with us postoperatively Patient is educated and worrisome signs and symptoms, and should call us if they experience any of these, including but not limited to redness, swelling, increased pain, and discharge Patient understands this and is amenable to this plan Coding Level of Care Code Global (15240) Diagnoses Carpal tunnel syndrome of left wrist G56.02
--- OUTSIDE RECORDS SUMMARY | 2025-10-27 18:20 | XMS_ITS | Encounter Summary ---
Author Organization [facility] Address [address] [place] [address] Care Team Providers Care Quality Systems Engineer Name Role Phone Bruce Welch MD Primary Care Provider [phone] Encounter Details Date Type Department Care Team (Late st Contact Info) Description 06/24/2025 Lab Requisition [facility] - Main Lab [address] [facility] [place] [address] Bruce Welch MD [address] [place], [place] [id number] Type 2 diabetes mellitus without complications (CMS/HCC [...] mmol/L LAB CHEMISTRY METHOD 06/26/2025 1:23 PM [facility] Potassium 3.9 3.5 - 5.5 mmol/L LAB CHEMISTRY METHOD 06/26/2025 1:23 PM [facility] Chloride 103 96 - 110 mmol/L LAB CHEMISTRY METHOD 06/26/2025 1:23 PM [facility] CO2 27 21 - 32 mmol/L LAB CHEMISTRY METHOD 06/26/2025 1:23 PM [facility] Anion Gap 8 3 - 11 LAB CHEMISTRY METHOD 06/26/2025 1:23 PM [facility] Glucose 111(H) 70 - 100 mg/dL LAB CHEMISTRY METHOD 06/26/2025 1:23 PM [facility] BUN 21 5 - 25 mg/dL LAB CHEMISTRY METHOD 06/26/2025 1:23 PM [facility] Creatinine 0.69 0.50 - 1.10 mg/dL LAB CHEMISTRY METHOD 06/26/2025 1:23 PM [facility] eGFR 88 >=60 mL/min/1. 73m2 LAB CHEMISTRY METHOD 06/26/2025 1:23 PM [facility] Comment:Calculation based on the Chronic Kidney Disease Epidemiology Collaboration (CKD-EPI) equation refit without adjustment for race. BUN/Creatinine Ratio 30.4 LAB CHEMISTRY METHOD 06/26/2025 1:23 PM [facility] Calcium 8.6 8.5 - 10.5 mg/dL LAB CHEMISTRY METHOD 06/26/2025 1:23 PM [facility] Blood Venous blood specimen / Unknown Venipuncture / Unknown 06/26/2025 10:03 AM EDT 06/26/2025 11:19 AM EDT us Bruce Welch MD LAB BLOOD ORDERABLES Final Resul t [facility] [address] [place] [address], * (ABNORMAL) Complete blood count (06/26/2025 10:03 AM EDT) [facility] WBC 9.4 4.8 - 10.8 K/mcL LAB HEMETOLOGY METHOD [facility] RBC 4.10 3.80 - 4.80 M/mcL LAB HEMETOLOGY METHOD 06/26[facility]2025 12[facility] Hemoglobin 10.2(L) 11.5 - 16.0 g/dL LAB HEMETOLOGY METHOD 06/26/2025 12:15 PM [facility] Hematocrit 33.2(L) 35.0 - 47.0 % LAB HEMETOLOGY METHOD 06/26/2025 12:15 PM [facility] MCV 81.4 79.0 - 98.0 FL LAB HEMETOLOGY METHOD 06/26/2025 12:15 PM [facility] MCH 25.0(L) 27.0 - 32.0 pcg LAB HEMETOLOGY METHOD 06/26/2025 12:15 PM [facility] MCHC 30.7(L) 32.0 - 37.0 g/dL LAB HEMETOLOGY METHOD 06/26/2025 12:15 PM [facility] RDW 15.9(H) 11.0 - 15.0 % LAB HEMETOLOGY METHOD 06/26/2025 12:15 PM [facility] Platelets 364 130 - 400 K/mcL LAB HEMETOLOGY METHOD 06/26/2025 12:15 PM [facility] MPV 10.5 7.0 - 11.0 FL LAB HEMETOLOGY METHOD 06/26/2025 12:15 PM [facility] NRBC 0.0 <1.0 % LAB HEMETOLOGY METHOD 06/26/2025 12:15 PM EDT [facility] NRBC Absolute 0.00 <0.10 K/mcL LAB HEMETOLOGY METHOD 06/26/2025 12:15 PM EDT [facility] Blood Venous blood specimen / Unknown Venipuncture / Unknown 06/26/2025 10:03 AM EDT 06/26/2025 11:19 AM EDT us Bruce Welch MD LAB BLOOD ORDERABLES Final Resul t [facility] [address] [place] [address], documented in this encounter Visit Diagnoses Diagnosis Type 2 diabetes mellitus without complications (CMS/HCC V24, CMS/HCC V28) Anemia, unspecified documented in this encounter Care Teams Quality Systems Engineer Relationship Specialty Start Date End Date Bruce Welch MD [address] [place] [address] [address] [place] [address] PCP - General Geriatric Medicine 06/19/25 documented as of this encounter
--- OUTSIDE RECORDS SUMMARY | 2025-10-27 18:20 | XMS_ITS | Encounter Summary ---
Author Organization [facility] Address [address] [place] [address] Care Team Providers Care Baggage Porter Name Role Phone Bruce Welch MD Primary Care Provider [phone] Encounter Details Date Type Department Care Team (Late st Contact Info) Description 06/19/2025 Lab Requisition [facility] - Main Lab 299 [facility] [place] [address] Bruce Welch MD [address] [place], [place] [phone] Anemia, unspecified; Type 2 diabetes mellitus without [...] unspecified Type 2 diabetes mellitus without complications ([facility] V24, [facility] V28) Hyperlipidemia, unspecified Hypothyroidism, unspecified Magnesium deficiency Vitamin B12 deficiency anemia, unspecified Vitamin D deficiency, unspecified LIPID PANEL WITH REFLEX TO DIRECT LDL Routine 06/19/2025 5:26 AM EDT Anemia, unspecified Type 2 diabetes mellitus without complications ([facility] V24, [facility] V28) Hyperlipidemia, unspecified Hypothyroidism, unspecified Magnesium deficiency Vitamin B12 deficiency anemia, unspecified Vitamin D deficiency, unspecified VITAMIN D 25 HYDROXY Routine 06/19/2025 5:26 AM EDT Anemia, unspecified Type 2 diabetes mellitus without complications ([facility] V24, [facility] V28) Hyperlipidemia, unspecified Hypothyroidism, unspecified Magnesium deficiency Vitamin B12 deficiency anemia, unspecified Vitamin D deficiency, unspecified COMPLETE BLOOD COUNT Routine 06/19/2025 5:26 AM EDT Anemia, unspecified Type 2 diabetes mellitus without complications ([facility] V24, [facility] V28) Hyperlipidemia, unspecified Hypothyroidism, unspecified Magnesium deficiency Vitamin B12 deficiency anemia, unspecified Vitamin D deficiency, unspecified TRIIODOTHYRONINE FREE Routine 06/19/2025 5:26 AM EDT Anemia, unspecified Type 2 diabetes mellitus without complications ([facility] V24, [facility] V28) Hyperlipidemia, unspecified Hypothyroidism, unspecified Magnesium deficiency Vitamin B12 deficiency anemia, unspecified Vitamin D deficiency, unspecified MAGNESIUM Routine 06/19/2025 5:26 AM EDT Anemia, unspecified Type 2 diabetes mellitus without complications ([facility] V24, [facility] V28) Hyperlipidemia, unspecified Hypothyroidism, unspecified Magnesium deficiency Vitamin B12 deficiency anemia, unspecified Vitamin D deficiency, unspecified COMPREHENSIVE METABOLIC PANEL Routine 06/19/2025 5:26 AM EDT Anemia, unspecified Type 2 diabetes mellitus without complications ([facility] V24, [facility] V28) Hyperlipidemia, unspecified Hypothyroidism, unspecified Magnesium deficiency Vitamin B12 deficiency anemia, unspecified Vitamin D deficiency, unspecified documented in this encounter Results * (ABNORMAL) Triiodothyronine free (06/19/2025 5:26 AM EDT) T3, Free 193(L) 230 - 420 pcg/dL LAB CHEMISTRY METHOD 06/19/2025 7:36 PM EDT [facility] Blood Venous blood specimen / Unknown Venipuncture / Unknown 06/19/2025 5:26 AM EDT 06/19/2025 10:47 AM EDT us Bruce Welch MD LAB BLOOD ORDERABLES Final Resul t Performing Organization Address City/[facility]/ZIP Co de Phone Number [facility] [address] [place] [address], [place] [phone] * Free thyroxine with reflex to free triiodothyronine (06/19/2025 5:26 AM EDT) Free T4 1.40 0.70 - 1.80 ng/dL LAB CHEMISTRY METHOD 06/19/2025 6:04 PM EDT [facility] Blood Venous blood specimen / Unknown Venipuncture / Unknown 06/19/2025 5:26 AM EDT 06/19/2025 10:47 AM EDT us Bruce Welch MD LAB BLOOD ORDERABLES Final Resul t Performing Organization Address City/[facility]/ZIP Co de Phone Number [facility] [address] [place] [address], [place] [phone] * Vitamin D 25 hydroxy (06/19/2025 5:26 AM EDT) Vit D, 25-Hydroxy 72.3 30.0 - 80.0 ng/mL LAB CHEMISTRY METHOD 06/19/2025 1:24 PM EDT [facility] Blood Venous blood specimen / Unknown Venipuncture / Unknown 06/19/2025 5:26 AM EDT 06/19/2025 10:47 AM EDT us Bruce Welch MD LAB BLOOD ORDERABLES Final Resul t Performing Organization Address City/[facility] Co de Phone Number [facility] [address] [place] [address], [place] [phone] * Vitamin B12 and folate (06/19/2025 5:26 AM EDT) Vitamin B-12 774 250 - 900 pcg/mL LAB CHEMISTRY METHOD 06/19/2025 11:51 AM EDT [facility] Folate 6.4 2.8 - 17.0 ng/ml LAB CHEMISTRY METHOD 06/19/2025 11:51 AM EDT [facility] Blood Venous blood specimen / Unknown Venipuncture / Unknown 06/19/2025 5:26 AM EDT 06/19/2025 10:47 AM EDT us Bruce Welch MD LAB BLOOD ORDERABLES Final Resul t Performing Organization Address [facility]/ZIP Co de Phone Number [facility] [address] [place] [address], [place] [phone] * (ABNORMAL) Magnesium (06/19/2025 5:26 AM EDT) Magnesium 1.7(L) 1.9 - 2.6 mg/dL LAB CHEMISTRY METHOD 06/19/2025 11:29 AM EDT [facility] Blood Venous blood specimen / Unknown Venipuncture / Unknown 06/19/2025 5:26 AM EDT 06/19/2025 10:47 AM EDT us Bruce Welch MD LAB BLOOD ORDERABLES Final Resul t [facility] [address] [place] [address], [place] [phone] * (ABNORMAL) Thyroid stimulating hormone with reflex to free t4 and free t3 (06/19/2025 5:26 AM EDT) [facility] TSH 0.05(L) 0.40 - 4.00 mcIU/mL LAB CHEMISTRY METHOD 06/19/2025 5:27 PM EDT [facility] Blood Venous blood specimen / Unknown Venipuncture / Unknown 06/19/2025 5:26 AM EDT 06/19/2025 10:47 AM EDT us Bruce Welch MD LAB BLOOD ORDERABLES Final Resul t [facility] [address] [place] [address], [place] [phone] * Lipid panel with reflex to direct LDL (06/19/2025 5:26 AM EDT) [facility] Cholesterol 116 0 - 200 mg/dL LAB CHEMISTRY METHOD 06/19/2025 11:51 AM EDT [facility] Triglycerides 72 0 - 150 mg/dL LAB CHEMISTRY METHOD 06/19/2025 11:51 AM EDT [facility] HDL 58 >=40 mg/dL LAB CHEMISTRY METHOD 06/19/2025 11:51 AM EDT [facility] LDL Calculated 44 0 - 100 mg/dL LAB CHEMISTRY METHOD 06/19/2025 11:51 AM EDT [facility] VLDL Cholesterol Apolinar 14.4 mg/dL LAB CHEMISTRY METHOD 06/19/2025 11:51 AM EDT [facility] Non HDL Chol. (LDL+VLDL) 58 <145 mg/dL LAB CHEMISTRY METHOD 06/19/2025 11:51 AM [facility] Chol/HDL Ratio 2.0 0.0 - 4.4 LAB CHEMISTRY METHOD 06/19/2025 11:51 AM [facility] Blood Venous blood specimen / Unknown Venipuncture / Unknown 06/19/2025 5:26 AM EDT 06/19/2025 10:47 AM EDT us Bruce Welch MD LAB BLOOD ORDERABLES Final Resul t [facility] [address] [place] [address], * (ABNORMAL) Comprehensive metabolic panel (06/19/2025 5:26 AM EDT) Sodium 139 133 - 145 mmol/L LAB CHEMISTRY METHOD 06/19/2025 11:51 AM [facility] Potassium 3.9 3.5 - 5.5 mmol/L LAB CHEMISTRY METHOD 06/19/2025 11:51 AM [facility] Chloride 104 96 - 110 mmol/L LAB CHEMISTRY METHOD 06/19/2025 11:51 AM [facility] CO2 27 21 - [...] 06/19/2025 11:51 AM [facility] Blood Venous blood specimen / Unknown Venipuncture / Unknown 06/19/2025 5:26 AM EDT 06/19/2025 10:47 AM EDT us Bruce Welch MD LAB BLOOD ORDERABLES Final Resul t [facility] [address] [place] [address], * (ABNORMAL) Complete blood count (06/19/2025 5:26 AM EDT) [facility] WBC 8.4 4.8 - 10.8 K/mcL LAB HEMETOLOGY METHOD 06/19/2025 11:23 AM [facility] RBC 4.40 3.80 - 4.80 M/mcL LAB HEMETOLOGY METHOD 06/19/2025 11:23 AM [facility] Hemoglobin 11.0(L) 11.5 - 16.0 g/dL LAB HEMETOLOGY METHOD 06/19/2025 11:23 AM [facility] Hematocrit 36.2 35.0 - 47.0 % LAB HEMETOLOGY METHOD 06/19/2025 11:23 AM [facility] MCV 83.0 79.0 - 98.0 FL LAB HEMETOLOGY METHOD 06/19/2025 11:23 AM [facility] MCH 25.2(L) 27.0 - 32.0 pcg LAB HEMETOLOGY METHOD 06/19/2025 11:23 AM [facility] MCHC 30.4(L) 32.0 - 37.0 g/dL LAB HEMETOLOGY METHOD 06/19/2025 11:23 AM [facility] RDW 17.2(H) 11.0 - 15.0 % LAB HEMETOLOGY METHOD 06/19/2025 11:23 AM [facility] Platelets 254 130 - 400 K/mcL LAB HEMETOLOGY METHOD 06/19/2025 11:23 AM [facility] MPV 11.4(H) 7.0 - 11.0 FL LAB HEMETOLOGY METHOD 06/19/2025 11:23 AM [facility] NRBC 0.0 <1.0 % LAB HEMETOLOGY METHOD 06/19/2025 11:23 AM [facility] NRBC Absolute 0.00 <0.10 K/[facility] LAB HEMETOLOGY METHOD 06/19/2025 11:23 AM EDT [facility] Blood Venous blood specimen / Unknown Venipuncture / Unknown 06/19/2025 5:26 AM EDT 06/19/2025 10:47 AM EDT Bruce Welch MD LAB BLOOD ORDERABLES Final Resul t [facility] [address] [place] [address], documented in this encounter Visit Diagnoses Diagnosis Anemia, unspecified Type 2 diabetes mellitus without complications (CMS/HCC V24, CMS/HCC V28) Hyperlipidemia, unspecified Hypothyroidism, unspecified Magnesium deficiency Disorders of magnesium metabolism Vitamin B12 deficiency anemia, unspecified Vitamin D deficiency, unspecified documented in this encounter Care Teams Baggage Porter Relationship Specialty Start Date End Date Bruce Welch MD [address] [place] [address] [address] [place] [address] PCP - General Geriatric Medicine 06/19/25 documented as of this encounter
--- OUTSIDE RECORDS SUMMARY | 2025-10-27 18:20 | XMS_ITS | Encounter Summary ---
Author Organization [facility] Address [address] [place] [address] Care Team Providers Care Bottle Blower Name Role Phone Bruce Welch MD Primary Care Provider [phone] Encounter Details Date Type Department Care Team (Late st Contact Info) Description 10/19/2025 Lab Requisition [facility] - Main Lab [address] [facility] [place] [address] Sandra Cordoba MD [address] [facility] 1 [place], [place] [phone] Nontraumatic hematoma of soft tissue; Repeated falls; Weakness Social History Tobacco Use Types Packs/Day Years Used Date Smoking Tobacco: Never Assessed Comments Unknown Sex and Gender Information Value Date Recorded Sex Assigned at Not on file Legal Sex Female 3:06 PM EST Gender Identity Not on file Sexual Orientation Not on file documented as of this encounter Plan of Treatment Not on file documented as of this encounter Visit Diagnoses Diagnosis Nontraumatic hematoma of soft tissue Repeated falls Weakness Other malaise and fatigue documented in this encounter Care Teams Bottle Blower Relationship Specialty Start Date End Date Bruce Welch MD [address] [place] [address] PCP - General Geriatric Medicine 06/19/25 documented as of this encounter
--- OUTSIDE RECORDS SUMMARY | 2025-10-27 18:20 | XMS_ITS | Encounter Summary ---
Author Organization [facility] Address [address] [place] [address] Care Team Providers Care Inverted Block Operator Name Role Phone Bruce Welch MD Primary Care Provider [phone] Encounter Details Date Type Department Care Team (Late st Contact Info) Description 10/21/2025 Lab Requisition [facility] - Main Lab [address] [place] [address] Sandra Cordoba MD [address] [phone] Essential (primary) hypertension Social History Tobacco Use Types Packs/Day Years [...] Associated Diagnosis Comments COMPLETE BLOOD COUNT Routine 10/23/2025 8:03 AM EST Essential (primary) hypertension BASIC METABOLIC PANEL Routine 10/23/2025 8:03 AM EST Essential (primary) hypertension documented in this encounter Results * (ABNORMAL) Basic metabolic panel (10/23/2025 8:03 AM EST) Sodium 141 133 - 145 mmol/L 10/23/2025 11:05 AM EST [facility] Potassium 4.2 3.5 - 5.5 mmol/L 10/23/2025 11:05 AM EST [facility] Chloride 102 96 - 110 mmol/L 10/23/2025 11:05 AM [facility] CO2 30 21 - 32 mmol/L 10/23/2025 11:05 AM [facility] Anion Gap 9 3 - 11 10/23/2025 11:05 AM [facility] Glucose 130(H) 70 - 100 mg/dL 10/23/2025 11:05 AM [facility] BUN 16 5 - 25 mg/dL 10/23/2025 11:05 AM [facility] Creatinine 0.67 0.50 - 1.10 mg/dL 10/23/2025 11:05 AM [facility] eGFR 89 >=60 mL/min/1. 73m2 10/23/2025 11:05 AM [facility] Comment:Calculation based on the Chronic Kidney Disease Epidemiology Collaboration (CKD-EPI) equation refit without adjustment for race. BUN/Creatinine Ratio 23.9 10/23/2025 11:05 AM [facility] Calcium 8.8 8.5 - 10.5 mg/dL 10/23/2025 11:05 AM [facility] Blood Venous blood specimen / Unknown Venipuncture / Unknown 10/23/2025 8:03 AM EST 10/23/2025 10:10 AM EST us Sandra Cordoba MD LAB BLOOD ORDERABLES Fin al Result [facility] [address] [place] [address], * (ABNORMAL) Complete blood count (10/23/2025 8:03 AM EST) [facility] WBC 9.8 4.8 - 10.8 K/mcL LAB HEMETOLOGY METHOD 10/23/2025 10:32 AM [facility] RBC 3.40(L) 3.80 - 4.80 M/mcL LAB HEMETOLOGY METHOD 10/23/2025 10:32 AM [facility] Hemoglobin 8.9(L) 11.5 - 16.0 g/dL LAB HEMETOLOGY METHOD 10/23/2025 10:32 AM [facility] Hematocrit 28.7(L) 35.0 - 47.0 % LAB HEMETOLOGY METHOD 10/23/2025 10:32 AM [facility] MCV 84.4 79.0 - 98.0 FL LAB HEMETOLOGY METHOD 10/23/2025 10:32 AM [facility] MCH 26.2(L) 27.0 - 32.0 pcg LAB HEMETOLOGY METHOD 10/23/2025 10:32 AM [facility] MCHC 31.0(L) 32.0 - 37.0 g/dL LAB HEMETOLOGY METHOD 10/23/2025 10:32 AM [facility] RDW 16.8(H) 11.0 - 15.0 % LAB HEMETOLOGY METHOD 10/23/2025 10:32 AM [facility] Platelets 435(H) 130 - 400 K/mcL LAB HEMETOLOGY METHOD 10/23/2025 10:32 AM [facility] MPV 9.6 7.0 - 11.0 FL LAB HEMETOLOGY METHOD 10/23/2025 10:32 AM [facility] NRBC 0.0 <1.0 % LAB HEMETOLOGY METHOD 10/23/2025 10:32 AM [facility] NRBC Absolute 0.00 <0.10 K/mcL LAB HEMETOLOGY METHOD 10/23/2025 10:32 AM [facility] Blood Venous blood specimen / Unknown Venipuncture / Unknown 10/23/2025 8:03 AM EST 10/23/2025 10:09 AM EST us Sandra Cordoba MD LAB BLOOD ORDERABLES Fin al Result [facility] [address] [place] [address], documented in this encounter Visit Diagnoses Diagnosis Essential (primary) hypertension Unspecified essential hypertension documented in this encounter Care Teams Inverted Block Operator Relationship Specialty Start Date End Date Bruce Welch MD [address] [place] [address] [address] [place] [address] PCP - General Geriatric Medicine 06/19/25 documented as of this encounter
--- OUTSIDE RECORDS SUMMARY | 2025-10-27 18:20 | XMS_ITS | Encounter Summary ---
Author Organization [facility] Address [address] [place] [address] Care Team Providers Care Mysql Developer Name Role Phone Bruce Welch MD Primary Care Provider [phone] Encounter Details Date Type Department Care Team (Late st Contact Info) Description 07/05/2025 Lab Requisition [facility] - Main Lab 299 [facility] [place] [address] Bruce Welch MD [address] [place], [place] [phone] Essential (primary) hypertension; Hypomagnesemia Social History Tobacco [...] mg/dL LAB CHEMISTRY METHOD 07/05/2025 11:16 AM [facility] Blood Venous blood specimen / Unknown Venipuncture / Unknown 07/05/2025 6:12 AM EDT 07/05/2025 9:34 AM EDT us Bruce Welch MD LAB BLOOD ORDERABLES Final Resul t [facility] [address] [place] [address], * Basic metabolic panel (07/05/2025 6:12 AM EDT) Sodium 140 133 - 145 mmol/L LAB CHEMISTRY METHOD 07/05/2025 11:16 AM [facility] Potassium 4.6 3.5 - 5.5 mmol/L LAB CHEMISTRY METHOD 07/05/2025 11:16 AM [facility] Chloride 103 96 - 110 mmol/L LAB CHEMISTRY METHOD 07/05/2025 11:16 AM [facility] CO2 32 21 - 32 mmol/L LAB CHEMISTRY METHOD 07/05/2025 11:16 AM [facility] Anion Gap 5 3 - 11 LAB CHEMISTRY METHOD 07/05/2025 11:16 AM [facility] Glucose 91 70 - 100 mg/dL LAB CHEMISTRY METHOD 07/05/2025 11:16 AM [facility] BUN 16 5 - 25 mg/dL LAB CHEMISTRY METHOD 07/05/2025 11:16 AM [facility] Creatinine 0.70 0.50 - 1.10 mg/dL LAB CHEMISTRY METHOD 07/05/2025 11:16 AM [facility] eGFR 88 >=60 mL/min/1. 73m2 LAB CHEMISTRY METHOD 07/05/2025 11:16 AM [facility] Comment:Calculation based on the Chronic Kidney Disease Epidemiology Collaboration (CKD-EPI) equation refit without adjustment for race. BUN/Creatinine Ratio 22.9 LAB CHEMISTRY METHOD 07/05/2025 11:16 AM EDT [facility] Calcium 8.9 8.5 - 10.5 mg/dL LAB CHEMISTRY METHOD 07/05/2025 11:16 AM EDT [facility] Blood Venous blood specimen / Unknown Venipuncture / Unknown 07/05/2025 6:12 AM EDT 07/05/2025 9:34 AM EDT us Bruce Welch MD LAB BLOOD ORDERABLES Final Resul t [facility] [address] [place] [address], [place] [phone] * (ABNORMAL) Complete blood count (07/05/2025 6:12 AM EDT) WBC 9.1 4.8 - 10.8 K/mcL LAB HEMETOLOGY METHOD 07/05/2025 10:26 AM [facility] RBC 4.30 3.80 - 4.80 M/mcL LAB HEMETOLOGY METHOD 07/05/2025 10:26 AM [facility] Hemoglobin 10.7(L) 11.5 - 16.0 g/dL LAB HEMETOLOGY METHOD 07/05/2025 10:26 AM [facility] Hematocrit 35.4 35.0 - 47.0 % LAB HEMETOLOGY METHOD 07/05/2025 10:26 AM [facility] MCV 81.6 79.0 - 98.0 FL LAB HEMETOLOGY METHOD 07/05/2025 10:26 AM [facility] MCH 24.7(L) 27.0 - 32.0 pcg LAB HEMETOLOGY METHOD 07/05/2025 10:26 AM [facility] MCHC 30.2(L) 32.0 - 37.0 g/dL LAB HEMETOLOGY METHOD 07/05/2025 10:26 AM EDT [facility] RDW 15.9(H) 11.0 - 15.0 % LAB HEMETOLOGY METHOD 07/05/2025 10:26 AM EDT [facility] Platelets 387 130 - 400 K/mcL LAB HEMETOLOGY METHOD 07/05/2025 10:26 AM EDT [facility] MPV 10.6 7.0 - 11.0 FL LAB HEMETOLOGY METHOD 07/05/2025 10:26 AM EDT [facility] NRBC 0.0 <1.0 % LAB HEMETOLOGY METHOD 07/05/2025 10:26 AM EDT [facility] NRBC Absolute 0.00 <0.10 K/mcL LAB HEMETOLOGY METHOD 07/05/2025 10:26 AM EDT [facility] Blood Venous blood specimen / Unknown Venipuncture / Unknown 07/05/2025 6:12 AM EDT 07/05/2025 9:34 AM EDT Bruce Welch MD LAB BLOOD ORDERABLES Final Resul t [facility] [address] [place] [address], documented in this encounter Visit Diagnoses Diagnosis Essential (primary) hypertension Unspecified essential hypertension Hypomagnesemia Disorders of magnesium metabolism documented in this encounter Care Teams Mysql Developer Relationship Specialty Start Date End Date Bruce Welch MD [address] [place], [place] [id number] [place] [address] PCP - General Geriatric Medicine 06/19/25 documented as of this encounter
--- OUTSIDE RECORDS SUMMARY | 2025-10-27 18:20 | XMS_ITS | Encounter Summary ---
Author Organization [facility] Address [address] [place] [address] Care Team Providers Care Credit Collections Manager Name Role Phone Bruce Welch MD Primary Care Provider [phone] Encounter Details Date Type Department Care Team (Late st Contact Info) Description 10/27/2025 Lab Requisition [facility] - Main Lab [address] [place] [address] Sandra Cordoba MD [address] [phone] Hypomagnesemia Social History Tobacco Use Types Packs/Day [...] Procedure Name Priority Date/Time Associated Diagnosis Comments MAGNESIUM STAT 10/27/2025 12:13 PM EST Hypomagnesemia documented in this encounter Results * (ABNORMAL) Magnesium (10/27/2025 12:13 PM EST) Magnesium 1.2(L) 1.9 - 2.6 mg/dL 10/27/2025 1:26 PM EST [facility] Blood Venous blood specimen / Unknown Venipuncture / Unknown 10/27/2025 12:13 PM EST 10/27/2025 12:50 PM EST us Sandra Cordoba MD LAB BLOOD ORDERABLES Fin al Result [facility] [address] [place] [address], documented in this encounter Visit Diagnoses Diagnosis Hypomagnesemia Disorders of magnesium metabolism documented in this encounter Care Teams Credit Collections Manager Relationship Specialty Start Date End Date Bruce Welch MD [address] [facility] [address] [place] [address] PCP - General Geriatric Medicine 06/19/25 documented as of this encounter
--- OUTSIDE RECORDS SUMMARY | 2025-10-27 18:20 | XMS_ITS | Clinical Summary ---
Author Organization [address] Address [address] [place] [phone] Phone Care Team Providers Care Kiln Furniture Saw Tender Name Role Phone Bruce Welch MD Primary Care Provider [phone] Encounters Date Type Department Care Team Description 10/27/2025 Lab Requisition [facility] - Main Lab [address] [place] [phone] Sandra Cordoba MD Hypomagnesemia 10/21/2025 Lab Requisition [facility] Lab [address] [place] [phone] Sandra Cordoba MD Essential (primary) hypertension 10/19/2025 Lab Requisition [facility] Lab [address] [place] [address] Sandra Cordoba MD Nontraumatic hematoma of soft tissue; Repeated falls; Weakness from Last 3 Months Social History Tobacco [...] 1955 Diabetes: Annual Retina Eye Exam 1955 Zoster Vaccines (1 of 2) 1995 IPV Vaccines (2 of 3 - Adult catch-up series) 10/02/2016 09/04/2016 RSV Immunization Adult Patients (1 - 1-dose 75+ series) 2020 Falls Risk Assessment 06/14/2024 Hepatitis C Screening 06/14/2024 Medicare Annual Wellness Visit 06/14/2024 Osteoporosis Screening (Bone Density Screening) 06/14/2024 Social Influencers of Health Screening 06/14/2024 Depression Screening 11/23/2024 Diabetes: Annual Urine Albumin-Creatinine Ratio (uACR) 04/08/2025 COVID-19 Vaccine ( season) 2025 08/18/2022, 09/17/2021, 09/12/2021, Additional history exists Influenza Vaccine (#1) 2025 , 09/12/2023, 08/24/2023, Additional history exists Diabetes: Blood Sugar Control Test (HGBA1C) 10/11/2025 04/10/2025, 06/27/2024 DTaP,Tdap,and Td Vaccines (2 - Tdap) 09/04/2026 09/04/2016 Diabetes: Annual GFR (Glomerular Filtration Rate) 10/23/2026 10/23/2025, 07/10/2025, 07/05/2025, Additional history exists Hypertension/CHF/CAD Annual BMP Blood Test 10/23/2026 10/23/2025, 07/10/2025, 07/05/2025, Additional history exists Cholesterol Screening (Lipid Panel) 06/19/2030 06/19/2025, 04/10/2025, 06/27/2024 Pneumococcal Vaccine: 50+ Years Completed 01/31/2022, 04/04/2016, 02/27/2016, Additional history exists HIB Vaccines Aged Out No longer eligi [...] MAGNESIUM STAT 10/27/2025 12:13 PM EST Hypomagnesemia BASIC METABOLIC PANEL Routine 10/23/2025 8:03 AM EST Essential (primary) hypertension COMPLETE BLOOD COUNT Routine 10/23/2025 8:03 AM EST Essential (primary) hypertension LIPID PANEL WITH REFLEX TO DIRECT LDL Routine 06/19/2025 5:26 AM EDT Anemia, unspecified Type 2 diabetes mellitus without complications ([facility]/HCC V24, [facility] V28) Hyperlipidemia, unspecified Hypothyroidism, unspecified Magnesium deficiency Vitamin B12 deficiency anemia, unspecified Vitamin D deficiency, unspecified HEMOGLOBIN A1C Routine 04/10/2025 7:55 AM EDT Vitamin D deficiency, unspecified Essential (primary) hypertension Unspecified atrial fibrillation (CMS/[facility] V24, CMS/[facility] V28) Type 2 diabetes mellitus without complications ([facility] V24, CMS/[facility] V28) from Last 3 Months or Most Recently Relevant to Health Maintenance Results * (ABNORMAL) Magnesium (10/27/2025 12:13 PM EST) Pathologist [facility] Magnesium 1.2(L) 1.9 - 2.6 mg/dL 10/27/2025 1:26 PM EST [facility] Blood Venous blood specimen / Unknown Venipuncture / Unknown 10/27/2025 12:13 PM EST 10/27/2025 12:50 PM EST us Sandra Cordoba MD LAB BLOOD ORDERABLES Fin al Result [facility] ([facility]) [facility] LAB [address] [place] [address], * (ABNORMAL) Complete blood count (10/23/2025 8:03 AM EST) Pathologist [facility] WBC 9.8 4.8 - 10.8 K/mcL LAB HEMETOLOGY METHOD 10/23/2025 10:32 AM [facility] RBC 3.40(L) 3.80 - 4.80 M/mcL LAB HEMETOLOGY METHOD 10/23/2025 10:32 AM [facility] Hemoglobin 8.9(L) 11.5 - 16.0 g/dL LAB HEMETOLOGY METHOD 10/23/2025 10:32 AM [facility] LAB Hematocrit 28.7(L) 35.0 - 47.0 % LAB HEMETOLOGY METHOD 10/23/2025 10:32 AM [facility] LAB MCV 84.4 79.0 - 98.0 FL LAB HEMETOLOGY METHOD 10/23/2025 10:32 AM [facility] LAB MCH 26.2(L) 27.0 - 32.0 pcg LAB HEMETOLOGY METHOD 10/23/2025 10:32 AM [facility] LAB MCHC 31.0(L) 32.0 - 37.0 g/dL LAB HEMETOLOGY METHOD 10/23/2025 10:32 AM [facility] LAB RDW 16.8(H) 11.0 - 15.0 % LAB HEMETOLOGY METHOD 10/23/2025 10:32 AM [facility] LAB Platelets 435(H) 130 - 400 K/mcL LAB HEMETOLOGY METHOD 10/23/2025 10:32 AM [facility] LAB MPV 9.6 7.0 - 11.0 FL LAB HEMETOLOGY METHOD 10/23/2025 10:32 AM [facility] LAB NRBC 0.0 <1.0 % LAB HEMETOLOGY METHOD 10/23/2025 10:32 AM [facility] LAB NRBC Absolute 0.00 <0.10 K/mcL LAB HEMETOLOGY METHOD 10/23/2025 10:32 AM [facility] Blood Venous blood specimen / Unknown Venipuncture / Unknown 10/23/2025 8:03 AM EST 10/23/2025 10:09 AM EST Sandra Cordoba MD LAB BLOOD ORDERABLES Fin al Result [facility] [address] [place] [address], * (ABNORMAL) Basic metabolic panel (10/23/2025 8:03 AM EST) Sodium 141 133 - 145 mmol/L 10/23/2025 11:05 AM [facility] Potassium 4.2 3.5 - 5.5 mmol/L 10/23/2025 11:05 AM [facility] Chloride 102 96 - 110 mmol/L 10/23/2025 11:05 AM [facility] CO2 30 21 - 32 mmol/L 10/23/2025 11:05 AM [facility] Anion Gap 9 3 - 11 10/23/2025 11:05 AM [facility] Glucose 130(H) 70 - 100 mg/dL 10/23/2025 11:05 AM [facility] BUN 16 5 - 25 mg/dL 10/23/2025 11:05 AM [facility] Creatinine 0.67 0.50 - 1.10 mg/dL 10/23/2025 11:05 AM [facility] eGFR 89 >=60 mL/min/1. 73m2 10/23/2025 11:05 AM [facility] Comment:Calculation based on the Chronic Kidney Disease Epidemiology Collaboration (CKD-EPI) equation refit without adjustment for race. BUN/Creatinine Ratio 23.9 10/23/2025 11:05 AM [facility] Calcium 8.8 8.5 - 10.5 mg/dL 10/23/2025 11:05 AM EST [facility] Blood Venous blood specimen / Unknown Venipuncture / Unknown 10/23/2025 8:03 AM EST 10/23/2025 10:10 AM EST us Sandra Cordoba MD LAB BLOOD ORDERABLES Fin al Result [facility] [address] [place] [address], [place] [phone] * Lipid panel with reflex to direct LDL (06/19/2025 5:26 AM EDT) Cholesterol 116 0 - 200 mg/dL LAB CHEMISTRY METHOD 06/19/2025 11:51 AM EDT [facility] Triglycerides 72 0 - 150 mg/dL LAB CHEMISTRY METHOD 06/19/2025 11:51 AM EDT [facility] HDL 58 >=40 mg/dL LAB CHEMISTRY METHOD 06/19/2025 11:51 AM EDT [facility] LDL Calculated 44 0 - 100 mg/dL LAB CHEMISTRY METHOD 06/19/2025 11:51 AM EDT [facility] VLDL Cholesterol Apolinar 14.4 mg/dL LAB CHEMISTRY METHOD 06/19/2025 11:51 AM EDT [facility] Non HDL Chol. (LDL+VLDL) 58 <145 mg/dL LAB CHEMISTRY METHOD 06/19/2025 11:51 AM EDT [facility] Chol/HDL Ratio 2.0 0.0 - 4.4 LAB CHEMISTRY METHOD 06/19/2025 11:51 AM EDT [facility] Blood Venous blood specimen / Unknown Venipuncture / Unknown 06/19/2025 5:26 AM EDT 06/19/2025 10:47 AM EDT us Bruce Welch MD LAB BLOOD ORDERABLES Final Resul t Performing Organization Address City/[facility]/ZIP Co de Phone Number [facility] [address] [place] [address], [place] [phone] * Hemoglobin A1c (04/10/2025 7:55 AM EDT) [...] ORDERABLES Final Resul t Performing Organization Address City/[facility]/ZIP Co de Phone Number [facility] [address] [place] [address], [place] [phone] from Last 3 Months or Most Recently Relevant to Health Maintenance Insurance [employer] [address] [place] [address] Care Teams Kiln Furniture Saw Tender Relationship Specialty Start Date End Date Bruce Welch MD [address] [place] [address] PCP - General Geriatric Medicine 06/19/25
--- OUTSIDE RECORDS SUMMARY | 2025-10-27 18:20 | XMS_ITS | Encounter Summary ---
Author Organization [facility] Address [address] [place] [address] Care Team Providers Care Fleet Administrative Assistant Name Role Phone Bruce Welch MD Primary Care Provider [phone] Encounter Details Date Type Department Care Team (Late st Contact Info) Description 04/10/[address] [facility] - Main Lab [address] [place] [address] Bruce Welch MD [address] [place], [place] [id number] Vitamin D deficiency, unspecified; Essential (primary) hypertension; [...] (ABNORMAL) Vitamin B12 (04/10/2025 7:55 AM EDT) [facility] Vitamin B-12 1,228(H) 250 - 900 pcg/mL LAB CHEMISTRY METHOD 04/10/2025 12:37 PM EDT [facility] Blood Venous blood specimen / Unknown Venipuncture / Unknown 04/10/2025 7:55 AM EDT 04/10/2025 10:43 AM EDT us Bruce Welch MD LAB BLOOD ORDERABLES Final Resul t Performing Organization Address City/[facility]/ZIP Co de Phone Number [facility] [address] [place] [address], [place] [phone] * Folate (04/10/2025 7:55 AM EDT) [facility] Folate 7.2 2.8 - 17.0 ng/ml LAB CHEMISTRY METHOD 04/10/2025 12:37 PM EDT [facility] Blood Venous blood specimen / Unknown Venipuncture / Unknown 04/10/2025 7:55 AM EDT 04/10/2025 10:43 AM EDT us Bruce Welch MD LAB BLOOD ORDERABLES Final Resul t Performing Organization Address [facility] Co de Phone Number [facility] [address] [place] [address], [place] [phone] * Vitamin D 25 hydroxy (04/10/2025 7:55 AM EDT) [facility] Vit D, 25-Hydroxy 71.3 30.0 - 80.0 ng/mL LAB CHEMISTRY METHOD 04/10/2025 2:06 PM EDT [facility] Blood Venous blood specimen / Unknown Venipuncture / Unknown 04/10/2025 7:55 AM EDT 04/10/2025 10:43 AM EDT us Bruce Welch MD LAB BLOOD ORDERABLES Final Resul t Performing Organization Address City/[facility]/ZIP Co de Phone Number [facility] [address] [place] [address], [place] [phone] * Hemoglobin A1c (04/10/2025 7:55 AM EDT) [facility] Hemoglobin A1C 6.3 <6.5 % LAB CHEMISTRY METHOD 04/10/2025 9:54 PM EDT [facility] Mean Bld Glu Estim. 134 mg/dL LAB CHEMISTRY METHOD 04/10/2025 9:54 PM EDT [facility] Blood Venous blood specimen / Unknown Venipuncture / Unknown 04/10/2025 7:55 AM EDT 04/10/2025 10:43 AM EDT us Bruce Welch MD LAB BLOOD ORDERABLES Final Resul t [facility] [address] [place] [address], [place] [phone] * (ABNORMAL) Lipid panel with reflex to direct LDL (04/10/2025 7:55 AM EDT) [facility] Cholesterol 94 0 - 200 mg/dL LAB CHEMISTRY METHOD 04/10/2025 12:37 PM [facility] Triglycerides 84 0 - 150 mg/dL LAB CHEMISTRY METHOD 04/10/2025 12:37 PM [facility] HDL 39(L) >=40 mg/dL LAB CHEMISTRY METHOD 04/10/2025 12:37 PM [facility] LDL Calculated 38 0 - 100 mg/dL LAB CHEMISTRY METHOD 04/10/2025 12:37 PM [facility] VLDL Cholesterol Apolinar 16.8 mg/dL LAB CHEMISTRY METHOD 04/10/2025 12:37 PM EDT [facility] Non HDL Chol. (LDL+VLDL) 55 <145 mg/dL LAB CHEMISTRY METHOD 04/10/2025 12:37 PM [facility] Chol/HDL Ratio 2.4 0.0 - 4.4 LAB CHEMISTRY METHOD 04/10/2025 12:37 PM [facility] Blood Venous blood specimen / Unknown Venipuncture / Unknown 04/10/2025 7:55 AM EDT 04/10/2025 10:43 AM EDT Bruce Welch MD LAB BLOOD ORDERABLES Final Resul t [facility] [address] [place] [address], [place] [phone] * (ABNORMAL) Comprehensive metabolic panel (04/10/2025 7:55 AM EDT) Sodium 142 133 - 145 mmol/L LAB CHEMISTRY METHOD 04/10/2025 12:37 PM [facility] Potassium 4.1 3.5 - 5.5 mmol/L LAB CHEMISTRY METHOD 04/10/2025 12:37 PM [facility] Chloride 107 96 - 110 mmol/L LAB CHEMISTRY METHOD 04/10/2025 12:37 PM [facility] CO2 27 21 - 32 mmol/L LAB CHEMISTRY METHOD 04/10/2025 12:37 PM [facility] Anion Gap 8 3 - 11 LAB CHEMISTRY METHOD 04/10/2025 12:37 PM [facility] Glucose 87 70 - 100 mg/dL LAB CHEMISTRY METHOD 04/10/2025 12:37 PM [facility] BUN 15 5 - 25 mg/dL LAB CHEMISTRY METHOD 04/10/2025 12:37 PM [facility] Creatinine 0.73 0.50 - 1.10 mg/dL LAB CHEMISTRY METHOD 04/10/2025 12:37 PM [facility] eGFR 84 >=60 mL/min/1. 73m2 LAB CHEMISTRY METHOD 04/10/2025 12:37 PM [facility] Comment:Calculation based on the Chronic Kidney Disease Epidemiology Collaboration (CKD-EPI) equation refit without adjustment for race. BUN/Creatinine Ratio 20.5 LAB CHEMISTRY METHOD 04/10/2025 12:37 PM T [facility] Calcium 8.4(L) 8.5 - 10.5 mg/dL LAB CHEMISTRY METHOD 04/10/2025 12:37 PM [facility] AST (SGOT) 35 10 - 42 unit/L LAB CHEMISTRY METHOD 04/10/2025 12:37 PM [facility] ALT (SGPT) 34 10 - 60 unit/L LAB CHEMISTRY METHOD 04/10/2025 12:37 PM [facility] Alkaline Phosphatase 225(H) 42 - 121 unit/L LAB CHEMISTRY METHOD 04/10/2025 12:37 PM [facility] Total Protein 5.4(L) 6.0 - 8.0 g/dL LAB CHEMISTRY METHOD 04/10/2025 12:37 PM [facility] Albumin 2.4(L) 3.2 - 5.0 g/dL LAB CHEMISTRY METHOD 04/10/2025 12:37 PM [facility] Total Bilirubin 0.4 0.0 - 1.4 mg/dL LAB CHEMISTRY METHOD 04/10/2025 12:37 PM [facility] Blood Venous blood specimen / Unknown Venipuncture / Unknown 04/10/2025 7:55 AM EDT 04/10/2025 10:43 AM EDT us Bruce Welch MD LAB BLOOD ORDERABLES Final Resul t [facility] [address] [place] [address], * (ABNORMAL) Complete blood count (04/10/2025 7:55 AM EDT) WBC 7.3 4.8 - 10.8 K/mcL LAB HEMETOLOGY METHOD 04/10/2025 12:23 PM EDT [facility] RBC 3.30(L) 3.80 - 4.80 M/mcL LAB HEMETOLOGY METHOD 04/10/2025 12:23 PM [facility] Hemoglobin 8.4(L) 11.5 - 16.0 g/dL LAB HEMETOLOGY METHOD 04/10/2025 12:23 PM [facility] Hematocrit 27.9(L) 35.0 - 47.0 % LAB HEMETOLOGY METHOD 04/10/2025 12:23 PM [facility] MCV 83.8 79.0 - 98.0 FL LAB HEMETOLOGY METHOD 04/10/2025 12:23 PM [facility] MCH 25.2(L) 27.0 - 32.0 pcg LAB HEMETOLOGY METHOD 04/10/2025 12:23 PM [facility] MCHC 30.1(L) 32.0 - 37.0 g/dL LAB HEMETOLOGY METHOD 04/10/2025 12:23 PM [facility] RDW 15.7(H) 11.0 - 15.0 % LAB HEMETOLOGY METHOD 04/10/2025 12:23 PM [facility] Platelets 279 130 - 400 K/mcL LAB HEMETOLOGY METHOD 04/10/2025 12:23 PM [facility] MPV 11.8(H) 7.0 - 11.0 FL LAB HEMETOLOGY METHOD 04/10/2025 12:23 PM [facility] NRBC 0.0 <1.0 % LAB HEMETOLOGY METHOD 04/10/2025 12:23 PM [facility] NRBC Absolute 0.00 <0.10 K/mcL LAB HEMETOLOGY METHOD 04/10/2025 12:23 PM [facility] Blood Venous blood specimen / Unknown Venipuncture / Unknown 04/10/2025 7:55 AM EDT 04/10/2025 10:43 AM EDT Bruce Welch MD LAB BLOOD ORDERABLES Final Resul t [facility] ([facility]) [facility] [address] [place] [address], [place] [phone] documented in this encounter Visit Diagnoses Diagnosis Vitamin D deficiency, unspecified Essential (primary) hypertension Unspecified essential hypertension Unspecified atrial fibrillation (CMS/[facility] V24, CMS/[facility] V28) Type 2 diabetes mellitus without complications (CMS/[facility] V24, CMS/[facility] V28) documented in this encounter Care Teams Fleet Administrative Assistant Relationship Specialty Start Date End Date Bruce Welch MD [address] [place] [address] [address] [place] [address] PCP - General Geriatric Medicine 06/19/25 documented as of this encounter
--- OUTSIDE RECORDS SUMMARY | 2025-10-27 18:20 | XMS_ITS | Clinical Summary ---
Author Organization [facility] Address [address] [place] [address] Care Team Providers Care Animal Nutrition Teacher Name Role Phone Allen Cortés MD Primary Care Provider [phone] Allergies No known active allergies Medications ezetimibe [...] Years Used Date Smoking Tobacco: Never Assessed [facility] Utilities Answer Date Recorded In the [...] Ospina MD LAB BLOOD [place] [address], [place] [address] * (ABNORMAL) Lipid Panel (06/27/2024 8:21 AM [...] Ospina MD LAB BLOOD ORDERABLES Final Result [address] [address], [address] [address] from Last 3 Months or Most Recently Relevant to Health Maintenance Insurance MEDICARE PART A & B [facility] MEDICARE Advance Directives * DNR (Latest Code Status on File) Date Activated Date Inactivated Comments 06/27/2024 4:12 PM Question Answer Comments Decision thoroughly discussed with: Gail ent arrived with valid State [place] DNR Transfer form * Full Code Date Activated Date Inactivated Comments 06/26/2024 8:41 PM 06/27/2024 4:12 PM Care Teams Animal Nutrition Teacher Relationship Specialty Start Date End Date Allen Cortés MD [address] [place] [address] PCP - General 06/26/24
--- OUTSIDE RECORDS SUMMARY | 2025-10-27 18:20 | XMS_ITS | Encounter Summary ---
Author Organization [facility] Address [address] [place] [address] Care Team Providers Care Show Design Supervisor Name Role Phone Bruce Welch MD Primary Care Provider [phone] Encounter Details Date Type Department Care Team (Late st Contact Info) Description 04/16/2025 Lab Requisition [facility] - Main Lab [address] [facility] [place] [address] Bruce Welch MD [address] [place], [place] [id number] Vitamin D deficiency, unspecified; Essential (primary) hypertension; [...] 2 diabetes mellitus without complications (CMS/HCC V24, CMS/[facility] V28) documented in this encounter Results * Basic metabolic panel (04/18/2025 6:41 AM EDT) Sodium 138 133 - 145 mmol/L LAB CHEMISTRY METHOD 04/18/2025 12:48 PM [facility] Potassium 4.5 3.5 - 5.5 mmol/L LAB CHEMISTRY METHOD 04/18/2025 12:48 PM [facility] Chloride 102 96 - 110 mmol/L LAB CHEMISTRY METHOD 04/18/2025 12:48 PM [facility] CO2 26 21 - 32 mmol/L LAB CHEMISTRY METHOD 04/18/2025 12:48 PM [facility] Anion Gap 10 3 - 11 LAB CHEMISTRY METHOD 04/18/2025 12:48 PM [facility] Glucose 73 70 - 100 mg/dL LAB CHEMISTRY METHOD 04/18/2025 12:48 PM [facility] BUN 16 5 - 25 mg/dL LAB CHEMISTRY METHOD 04/18/2025 12:48 PM [facility] Creatinine 0.68 0.50 - 1.10 mg/dL LAB CHEMISTRY METHOD 04/18/2025 12:48 PM [facility] eGFR 89 >=60 mL/min/1. 73m2 LAB CHEMISTRY METHOD 04/18/2025 12:48 PM [facility] Comment:Calculation based on the Chronic Kidney Disease Epidemiology Collaboration (CKD-EPI) equation refit without adjustment for race. BUN/Creatinine Ratio 23.5 LAB CHEMISTRY METHOD 04/18/2025 12:48 PM [facility] Calcium 9.2 8.5 - 10.5 mg/dL LAB CHEMISTRY METHOD 04/18/2025 12:48 PM [facility] Blood Venous blood specimen / Unknown Venipuncture / Unknown 04/18/2025 6:41 AM EDT 04/18/2025 10:47 AM EDT us Bruce Welch MD LAB BLOOD ORDERABLES Final Resul t [facility] [address] [place] [address], [place] [phone] * (ABNORMAL) Complete blood count (04/18/2025 6:41 AM EDT) WBC 8.4 4.8 - 10.8 K/mcL LAB HEMETOLOGY METHOD 04/18/2025 12:24 PM EDT [facility] RBC 3.60(L) 3.80 - 4.80 M/mcL LAB HEMETOLOGY METHOD 04/18/2025 12:24 PM EDT [facility] Hemoglobin 8.7(L) 11.5 - 16.0 g/dL LAB HEMETOLOGY METHOD 04/18/2025 12:24 PM EDT [facility] Hematocrit 29.8(L) 35.0 - 47.0 % LAB HEMETOLOGY METHOD 04/18/2025 12:24 PM EDT [facility] MCV 83.7 79.0 - 98.0 FL LAB HEMETOLOGY METHOD 04/18/2025 12:24 PM EDT [facility] MCH 24.4(L) 27.0 - 32.0 pcg LAB HEMETOLOGY METHOD 04/18/2025 12:24 PM EDT [facility] MCHC 29.2(L) 32.0 - 37.0 g/dL LAB HEMETOLOGY METHOD 04/18/2025 12:24 PM EDT [facility] RDW 15.3(H) 11.0 - 15.0 % LAB HEMETOLOGY METHOD 04/18/2025 12:24 PM EDT [facility] Platelets 411(H) 130 - 400 K/mcL LAB HEMETOLOGY METHOD 04/18/2025 12:24 PM EDT [facility] MPV 11.1(H) 7.0 - 11.0 FL LAB HEMETOLOGY METHOD 04/18/2025 12:24 PM EDT [facility] NRBC 0.0 <1.0 % LAB HEMETOLOGY METHOD 04/18/2025 12:24 PM EDT [facility] NRBC Absolute 0.00 <0.10 K/mcL [facility] 04/18/2025 12:24 PM EDT [facility] Blood Venous blood specimen / Unknown Venipuncture / Unknown 04/18/2025 6:41 AM EDT 04/18/2025 10:47 AM EDT Bruce Welch MD LAB BLOOD ORDERABLES Final Resul t [facility] [address] [place] [address], documented in this encounter Visit Diagnoses Diagnosis Vitamin D deficiency, unspecified Essential (primary) hypertension Unspecified essential hypertension Unspecified atrial fibrillation (CMS/HCC V24, CMS/HCC V28) Type 2 diabetes mellitus without complications (CMS/HCC V24, CMS/HCC V28) documented in this encounter Care Teams Show Design Supervisor Relationship Specialty Start Date End Date Bruce Welch MD [address] [place] [address] [address] [place] [address] PCP - General Geriatric Medicine 06/19/25 documented as of this encounter
--- OUTSIDE RECORDS SUMMARY | 2025-10-27 18:20 | XMS_ITS | Clinical Summary ---
Author Organization [facility] Address [address] [address] Phone Care Team Providers Care Behavioral Specialist Name Role Phone Trevor Rios MD [...] Advance Directives For more information, please contact: [phone] (9AM - 5PM [place], Thursday-Thursday) Documents on File Type Date Recorded Patient Phys Ther Expl anation MOLST 08/05/2024 Care Teams Behavioral Specialist Relationship Specialty Start Date End Date Trevor Rios MD [address] [place] [address] PCP - General Internal Medicine 09/02/24 Additional Source Comments The information contained in this document represents components of the legal health record. It is not the complete legal health record.[facility]
--- OUTSIDE RECORDS SUMMARY | 2025-10-27 18:20 | XMS_ITS | Encounter Summary ---
Author Organization [facility] Address [address] [place] [id number] Care Team Providers Care Home Stereo Equipment Installer Name Role Phone Bruce Welch MD Primary Care Provider [phone] Encounter Details Date Type Department Care Team (Late st Contact Info) Description 04/21/2025 Lab Requisition [facility] - Main Lab 299 [facility] [place] [address] Bruce eWlch MD [address] [place], [place] [id number] Vitamin D deficiency, unspecified; Essential (primary) hypertension; [...] V28) documented in this encounter Care Teams Home Stereo Equipment Installer Relationship Specialty Start Date End Date Bruce Welch MD [address] [place], [place] [phone] PCP - General Geriatric Medicine 06/19/25 documented as of this encounter
--- OUTSIDE RECORDS SUMMARY | 2025-10-27 18:20 | XMS_ITS | Encounter Summary ---
Author Organization [facility] Address [address] [place] [id number] Care Team Providers Care Family Independence Case Manager Name Role Phone Bruce Welch MD Primary Care Provider [phone] Encounter Details Date Type Department Care Team (Late st Contact Info) Description 07/14/2025 Lab Requisition [facility] - Main Lab 299 [facility] [employer] [place] [address] Bruce Welch MD [address] [facility] [address] [place], [place] [phone] Type 2 diabetes mellitus without complications (CMS/HCC [...] unspecified documented in this encounter Care Teams Family Independence Case Manager Relationship Specialty Start Date End Date Bruce Welch MD [address] [facility] [address] [place], [place] [phone] PCP - General Geriatric Medicine 06/19/25 documented as of this encounter
--- OUTSIDE RECORDS SUMMARY | 2025-10-27 18:20 | XMS_ITS | Encounter Summary ---
Author Organization [facility] Address [address] [place] [address] Care Team Providers Care Live Ammunition Inspector Name Role Phone Bruce Welch MD Primary Care Provider [phone] Encounter Details Date Type Department Care Team (Late st Contact Info) Description 06/30/2025 Lab Requisition [facility] - Main Lab 299 [facility] [place] [address] Bruce Welch MD [address] [place], [place] [phone] Type 2 diabetes mellitus without complications (CMS/HCC [...] mmol/L LAB CHEMISTRY METHOD 07/03/2025 1:00 PM [facility] Potassium 4.2 3.5 - 5.5 mmol/L LAB CHEMISTRY METHOD 07/03/2025 1:00 PM [facility] Chloride 102 96 - 110 mmol/L LAB CHEMISTRY METHOD 07/03/2025 1:00 PM [facility] CO2 31 21 - 32 mmol/L LAB CHEMISTRY METHOD 07/03/2025 1:00 PM [facility] Anion Gap 6 3 - 11 LAB CHEMISTRY METHOD 07/03/2025 1:00 PM [facility] Glucose 74 70 - 100 mg/dL LAB CHEMISTRY METHOD 07/03/2025 1:00 PM [facility] BUN 15 5 - 25 mg/dL LAB CHEMISTRY METHOD 07/03/2025 1:00 PM [facility] Creatinine 0.72 0.50 - 1.10 mg/dL LAB CHEMISTRY METHOD 07/03/2025 1:00 PM [facility] eGFR 85 >=60 mL/min/1. 73m2 LAB CHEMISTRY METHOD 07/03/2025 1:00 PM [facility] Comment:Calculation based on the Chronic Kidney Disease Epidemiology Collaboration (CKD-EPI) equation refit without adjustment for race. BUN/Creatinine Ratio 20.8 LAB CHEMISTRY METHOD 07/03/2025 1:00 PM [facility] Calcium 9.4 8.5 - 10.5 mg/dL LAB CHEMISTRY METHOD 07/03/2025 1:00 PM [facility] Blood Venous blood specimen / Unknown Venipuncture / Unknown 07/03/2025 8:21 AM EDT 07/03/2025 11:55 AM EDT us Bruce Welch MD LAB BLOOD ORDERABLES Final Resul t [facility] [address] [place] [address], * (ABNORMAL) Complete blood count (07/03/2025 8:21 AM EDT) [facility] WBC 10.6 4.8 - 10.8 K/mcL LAB HEMETOLOGY METHOD 07/03/2025 1:[address] [facility] RBC 4.00 3.80 - 4.80 M/mcL LAB HEMETOLOGY METHOD 07/03/2025 1:[address] [facility] Hemoglobin 9.9(L) 11.5 - 16.0 g/dL LAB HEMETOLOGY METHOD [facility] Hematocrit 33.4(L) 35.0 - 47.0 % LAB HEMETOLOGY METHOD 07/03/2025 1:24 PM [facility] MCV 82.9 79.0 - 98.0 FL LAB HEMETOLOGY METHOD 07/03/2025 [facility] MCH 24.6(L) 27.0 - 32.0 pcg LAB HEMETOLOGY METHOD 07/03/2025 1:24 PM [facility] MCHC 29.6(L) 32.0 - 37.0 g/dL LAB HEMETOLOGY METHOD 07/03/2025 1:24 PM [facility] RDW 16.0(H) 11.0 - 15.0 % LAB HEMETOLOGY METHOD 07/03/2025 1:[address] [facility] Platelets 419(H) 130 - 400 K/mcL LAB HEMETOLOGY METHOD 07/03/2025 1:24 PM [facility] MPV 10.6 7.0 - [...] Resul t [facility] [address] [place] [address], documented in this encounter Visit Diagnoses Diagnosis Type 2 diabetes mellitus without complications (CMS/HCC V24, CMS/HCC V28) Anemia, unspecified documented in this encounter Care Teams Live Ammunition Inspector Relationship Specialty Start Date End Date Bruce Welch MD [address] [place] [address] [address] [place] [address] PCP - General Geriatric Medicine 06/19/25 documented as of this encounter
--- OUTSIDE RECORDS SUMMARY | 2025-10-27 18:20 | XMS_ITS | Encounter Summary ---
Author Organization [facility] Address [address] [place] [address] Care Team Providers Care Skiagrapher Name Role Phone Bruce Welch MD Primary Care Provider [phone] Encounter Details Date Type Department Care Team (Late st Contact Info) Description 07/08/2025 Lab Requisition [facility] - Main Lab 299 [facility] [place] [address] Bruce Welch MD [address] [place], [place] [phone] Type 2 diabetes mellitus without complications (CMS/HCC [...] LAB CHEMISTRY METHOD 07/10/2025 4:12 PM [facility] Potassium 4.4 3.5 - 5.5 mmol/L LAB CHEMISTRY METHOD 07/10/2025 4:12 PM [facility] Chloride 103 96 - 110 mmol/L LAB CHEMISTRY METHOD 07/10/2025 4:12 PM [facility] CO2 26 21 - 32 mmol/L LAB CHEMISTRY METHOD 07/10/2025 4:12 PM [facility] Anion Gap 8 3 - 11 LAB CHEMISTRY METHOD 07/10/2025 4:12 PM [facility] Glucose 120(H) 70 - 100 mg/dL LAB CHEMISTRY METHOD 07/10/2025 4:12 PM [facility] BUN 20 5 - 25 mg/dL LAB CHEMISTRY METHOD 07/10/2025 4:12 PM [facility] Creatinine 0.69 0.50 - 1.10 mg/dL LAB CHEMISTRY METHOD 07/10/2025 4:12 PM [facility] eGFR 88 >=60 mL/min/1. 73m2 LAB CHEMISTRY METHOD 07/10/2025 4:12 PM [facility] Comment:Calculation based on the Chronic Kidney Disease Epidemiology Collaboration (CKD-EPI) equation refit without adjustment for race. BUN/Creatinine Ratio 29.0 LAB CHEMISTRY METHOD 07/10/2025 4:12 PM [facility] Calcium 9.7 8.5 - 10.5 mg/dL LAB CHEMISTRY METHOD 07/10/2025 4:12 PM [facility] Blood Venous blood specimen / Unknown Venipuncture / Unknown 07/10/2025 9:59 AM EDT 07/10/2025 10:51 AM EDT us Bruce Welch MD LAB BLOOD ORDERABLES Final Resul t [facility] [address] [place] [address], * (ABNORMAL) Complete blood count (07/10/2025 9:59 AM EDT) [facility] WBC 7.2 4.8 - 10.8 K/mcL LAB HEMETOLOGY METHOD 07/10/2025 1:30 PM EDT [facility] RBC 4.40 3.80 - 4.80 M/mcL LAB HEMETOLOGY METHOD 07/10/2025 1:30 PM EDT [facility] Hemoglobin 11.0(L) 11.5 - 16.0 g/dL LAB HEMETOLOGY METHOD 07/10[facility] Hematocrit 36.6 35.0 - 47.0 % LAB HEMETOLOGY METHOD 07/10/2025 1:30 [facility] MCV 82.4 79.0 - 98.0 FL LAB HEMETOLOGY METHOD 07/10/2025 1:30 [facility] MCH 24.8(L) 27.0 - 32.0 pcg LAB HEMETOLOGY METHOD 07/10/2025 1:30 PM [facility] MCHC 30.1(L) 32.0 - 37.0 g/dL LAB HEMETOLOGY METHOD 07/10/2025 1:30 PM [facility] RDW 15.5(H) 11.0 - 15.0 % LAB HEMETOLOGY METHOD 07/10/2025 1:30 PM EDT [facility] Platelets 451(H) 130 - 400 K/mcL LAB HEMETOLOGY METHOD 07/10/2025 1:30 PM [facility] MPV 10.8 7.0 - 11.0 FL LAB HEMETOLOGY METHOD 07/10/2025 1:30 [facility] NRBC 0.0 <1.0 [...] t [facility] [address] [place] [address], documented in this encounter Visit Diagnoses Diagnosis Type 2 diabetes mellitus without complications (CMS/HCC V24, CMS/HCC V28) Anemia, unspecified documented in this encounter Care Teams Skiagrapher Relationship Specialty Start Date End Date Bruce Welch MD [address] [place] [address] [address] [place] [address] PCP - General Geriatric Medicine 06/19/25 documented as of this encounter
== END 2025-10-27 14:29 | disposition home or self-care (01) ==
LOC: HO.HOS 14:07
DX: G56.02 Carpal tunnel syndrome, left upper limb (principal)
CPT/HCPCS: 99024

== ENCOUNTER → 2025-10-27 14:07 | Outpatient (BNVA) | payer MEDICARE, SELFPAY | DX: Z48.811 Encounter for surgical aftercare following surgery on the nervous system (principal); G56.02 Carpal tunnel syndrome, left upper limb; Z98.890 Other specified postprocedural states | CPT/HCPCS: 99212 ==